=== PATIENT | male | born 1940 | race Caucasian/White ===

== ENCOUNTER 2019-10-11 22:40 | Emergency (ER) | payer MEDICARE, MEDICAID, SELFPAY ==
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
[2019-10-11 22:42] VITALS: BP 206/82; PULSE 70; RESP 19; TEMP 36.1; O2SAT 100
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
[2019-10-12] MEDS: TETANUS,DIPHTHERIA,AC PERTUSSIS ADULT (0.5 ML) BOOSTRIX IM (00:18)
[2019-10-12 00:23] VITALS: BP 162/57; PULSE 58; RESP 18; O2SAT 97
[2019-10-12 00:36] LABS: Glucose Point of Care 68 (65-105)
== END 2019-10-12 00:45 | disposition home or self-care (01) ==
PROVIDERS: Emergency Provider Emergency Medicine; PCP Family Medicine
DX: S51.812A Laceration without foreign body of left forearm, initial encounter (principal); Z23 Encounter for immunization; E11.22 Type 2 diabetes mellitus with diabetic chronic kidney disease; I12.9 Hypertensive chronic kidney disease with stage 1 through stage 4 chronic kidney disease, or unspecified chronic kidney disease; N18.9 Chronic kidney disease, unspecified; E78.5 Hyperlipidemia, unspecified; F03.90 Unspecified dementia, unspecified severity, without behavioral disturbance, psychotic disturbance, mood disturbance, and anxiety; K21.9 Gastro-esophageal reflux disease without esophagitis; I25.10 Atherosclerotic heart disease of native coronary artery without angina pectoris; M79.5 Residual foreign body in soft tissue; Z79.84 Long term (current) use of oral hypoglycemic drugs; Y04.2XXA Assault by strike against or bumped into by another person, initial encounter
CPT/HCPCS: 73090; 82948; 90471; 90715; 99283

== ENCOUNTER 2019-11-17 13:33 | Outpatient (CLI) | payer MEDICARE, MEDICAID, SELFPAY ==
--- NOTE | 2019-11-17 15:00 | NEURO_ITS ---
Patient Number: [id number] Impression: # Complains of numbness of upper extremities/hands; Status post cardiac surgery with left forearm surgery. # Left Carpal Tunnel Syndrome of moderate degree. # Right ulnar neuropathy across the elbow. # Abnormal needle/EMG exam. Nerve Conduction Studies Anti Sensory Summary Table Stim Site NR Peak (ms) P-T Amp (?V) Site1 Site2 Delta-P (ms) Dist (cm) Juan R (m/s) Left Median Anti Sensory (2-3nd Digit) Wrist 3.1 47.9 Wrist 2-3nd Digit 3.1 14.0 45 Wrist 3.6 19.8 Wrist 2-3nd Digit 3.1 14.0 45 Right Median Anti Sensory (2-3nd Digit) Wrist 3.5 14.9 Wrist 2-3nd Digit 3.5 14.0 40 Wrist 3.4 32.7 Wrist 2-3nd Digit 3.5 14.0 40 Left Radial Anti Sensory (Base 1st Digit) Wrist 2.0 10.7 Wrist Base 1st Digit 2.0 0.0 Right Radial Anti Sensory (Base 1st Digit) Wrist 2.5 7.5 Wrist Base 1st Digit 2.5 0.0 Left Ulnar Anti Sensory (5th Digit) Wrist 2.5 9.4 Wrist 5th Digit 2.5 14.0 56 Right Ulnar Anti Sensory (5th Digit) Wrist 4.1 18.4 Wrist 5th Digit 4.1 14.0 34 Motor Summary Table Stim Site NR Onset (ms) O-P Amp (mV) Site1 Site2 Delta-0 (ms) Dist (cm) Juan R (m/s) Left Median Motor (Abd Poll Brev) Wrist 5.5 3.8 Elbow Wrist 6.0 33.0 55 Elbow 11.5 0.8 Right Median Motor (Abd Poll Brev) Wrist 3.8 2.5 Elbow Wrist 5.0 28.0 56 Elbow 8.8 1.5 Left Ulnar Motor (Abd Dig Minimi) Wrist 5.2 2.9 A Elbow Wrist 6.3 33.0 52 A Elbow 11.5 1.4 Right Ulnar Motor (Abd Dig Minimi) Wrist 3.9 1.4 A Elbow Wrist 6.4 29.0 45 A Elbow 10.3 1.0 B Elbow Wrist 4.8 23.0 48 B Elbow 8.7 0.6 F Wave Studies NR F-Lat (ms) L-R F-Lat (ms) Left Median (Mrkrs) (Abd Poll Brev) 29.51 0.00 Right Median (Mrkrs) (Abd Poll Brev) 29.51 0.00 Left Ulnar (Mrkrs) (Abd Dig Min) 29.65 0.53 Right Ulnar (Mrkrs) (Abd Dig Min) 30.18 0.53 EMG Side Muscle Nerve Root Ins Act Fibs Amp Dur Recrt Comment Right 1stDorInt Ulnar C8-T1 Nml Nml Nml Nml Nml Right Ext Indicis Radial (Post Int) C7-8 Nml Nml Nml Nml Nml Right Ext Digitorum Radial (Post Int) C7-8 Nml Nml Nml Nml Nml Right BrachioRad Radial C5-6 Nml Nml Nml Nml Nml Right PronatorTeres Median C6-7 Nml Nml Nml Nml Nml Right Abd Poll Brev Median C8-T1 Nml Nml Nml Nml Nml Left 1stDorInt Ulnar C8-T1 Nml Nml Nml Nml Nml Left Ext Indicis Radial (Post Int) C7-8 Nml Nml Nml Nml Nml Left Ext Digitorum Radial (Post Int) C7-8 Nml Nml Nml Nml Nml Left BrachioRad Radial C5-6 Nml Nml Nml Nml Nml Left PronatorTeres Median C6-7 Nml Nml Nml >12ms Reduced Left Abd Poll Brev Median C8-T1 Nml Nml Nml >12ms Reduced Right ABD Dig Min Ulnar C8-T1 Nml Nml Nml >12ms Reduced Left ABD Dig Min Ulnar C8-T1 Nml Nml Nml >12ms Reduced MTDD
== END 2019-11-17 13:34 | disposition home or self-care (01) ==
PROVIDERS: PCP Family Medicine; Visit Provider Plastic Surgery
DX: G56.02 Carpal tunnel syndrome, left upper limb (principal); G56.21 Lesion of ulnar nerve, right upper limb
CPT/HCPCS: 95886; 95911

== ENCOUNTER 2019-11-22 20:35 | Emergency (ER) | payer MEDICARE, MEDICAID, SELFPAY ==
--- NOTE | ~2019-11-22 | XR_ITS ---
EXAMINATION: XR chest 1V portable DATE: 11/22/2019 22:26 INDICATION: Shortness of breath. TECHNIQUE: frontal view of the chest was obtained. COMPARISON: Chest radiograph dated 10/02/2018 FINDINGS: Hazy opacities at the bilateral lung bases most likely small bilateral pleural effusions and/or atele ctasis. No pulmonary edema or pneumothorax. The cardiomediastinal silhouette is normal. Median sterno nitesh wires and mediastinal surgical clips are seen, likely from prior coronary artery bypass grafting . IMPRESSION: 1. Hazy opacities at the lung bases which could represent small pleural effusions, atelectasis or les s likely pneumonia.. Reviewed, dictated and finalized at location A. IMPRESSION: 1. Hazy opacities at the lung bases which could represent small pleural effusio ns, atelectasis or less likely pneumonia..
[2019-11-22 20:43] VITALS: BP 179/65; PULSE 57; RESP 22; TEMP 36.7; O2SAT 100
--- NOTE | 2019-11-22 21:35 | ECG_ITS ---
Measurements Intervals [place] Rate: 58 P: 81 MS: 321 QRS: 12 QRSD: 111 T: 31 QT: 450 QTc: 444 Interpretive Statements SINUS BRADYCARDIA WITH FIRST DEGREE AV BLOCK INTRAVENTRICULAR CONDUCTION DELAY DELAYED PRECORDIAL R/S TRANSITION BASELINE ARTIFACT- I, II, III, AVR, AVL, AVF, V5-V6 ABNORMAL ECG Electronically Signed On 11-23-2019 7:05:51 CDT by Mark Moss D.O.
--- NOTE | 2019-11-22 21:37 | ED.SOB ---
HPI - SOB/Dyspnea General Chief Complaint: Shortness of Breath/Dyspnea Stated Complaint: short of breath Time Seen by Provider: 11/22/19 20:55 Source: patient Mode of arrival: ambulatory Limitations: no limitations History of Present Illness HPI Narrative: This patient is a 79 year old male with history COPD, DM, heart disease who presents for evaluation of abnormal blood sugar and shortness of breath. Patient states for the past month he has had intermittent sob. He states 1 month ago he starting having issues with his medications. He reports he has been out of his inhalers for a couple weeks. He has a chronic productive cough but he states it has not gotten worse. He denies chest pain or fever. He states that he is having intermittent sweating , which he thinks is due to his blood sugar dropping. He states he will be at rest and he feels like his blood sugar is low, so he will drink a soda. In the morning, he states his blood sugar is 70. He states he has no idea what his medications are for. He takes oral hypoglycemics. Related Data Home Medications Medication Instructions Recorded Confirmed alprazolam 0.5 mg PO PRN 10/11/19 amlodipine 5 mg PO DAILY 10/11/19 carvedilol 12.5 mg PO BID 10/11/19 cyclobenzaprine mg 10/11/19 donepezil 10 mg PO HS 10/11/19 ezetimibe mg 10/11/19 famotidine 20 mg PO BID 10/11/19 furosemide 20 mg PO DAILY 10/11/19 gabapentin 300 mg PO BID 10/11/19 glimepiride 4 mg PO DAILY 10/11/19 hydrocodone-acetaminophen 10/11/19 pioglitazone mg 10/11/19 rosuvastatin 20 mg PO DAILY 10/11/19 sitagliptin [Januvia] 100 mg PO DAILY 10/11/19 tramadol 50 mg PO 10/11/19 triamcinolone acetonide TOPICAL 10/11/19 umeclidinium-vilanterol [Anoro INHALATION 10/11/19 Ellipta] Spiriva with HandiHaler 18 mcg INHALATION DAILY 11/22/19 budesonide-formoterol [Symbicort] 2 puff INHALATION BID 11/22/19 11/22/19 glipizide 10 mg PO DAILY 11/22/19 Allergies Allergy/AdvReac Type Severity Reaction Status Date / Time morphine Allergy Intermediate Swelling Verified 10/11/19 22:47 Penicillins Allergy Mild Rash Verified 10/11/19 22:47 Review of Systems Review of Systems: All systems reviewed & are unremarkable except as noted in HPI and below Constitutional: Constitutional: Denies chills, Reports fatigue and Denies fever(s) ENT: Denies nasal congestion Cardiovascular: Cardiovascular: Denies chest pain Respiratory: Respiratory: Reports cough (chronic) and Reports dyspnea Gastrointestinal: Gastrointestinal: Denies abdominal pain, Reports diarrhea (intermittent), Denies nausea and Denies vomiting Neurologic: Reports dizziness Endocrine: Endocrine: Reports excessive sweating PMFSH Past Medical History Medical History Chronic kidney disease COPD (chronic obstructive pulmonary disease) Coronary artery disease Dementia Diabetes type 2, controlled GERD (gastroesophageal reflux disease) History of left heart catheterization Hyperlipidemia Hypertension Surgical History Surgical History (Updated 10/12/19 @ 00:15 by Davin Howell MD) H/O inguinal hernia repair Hx of CABG Social History Social History (Updated 10/12/19 @ 00:15 by Davin Howell MD) Substance use: never Gender identity (if verbalized by the patient): Male Exam Const: General: no acute distress and alert Orientation/consciousness: patient oriented x3 Eyes: EOM: EOMs intact bilaterally Neck: Neck: no lymphadenopathy Chest: Chest palpation & inspection: normal inspection of the chest Resp: Effort & Inspection: normal respiratory effort Auscultation: rhonchi and wheezes Cardio: Rate: regular rate Rhythm: regular rhythm Heart sounds: no murmurs GI: GI Palp: Yes Soft to palpation, No Tenderness to palpation present (GI), No Guarding due to palpation present (GI), No Rigid due to palpation and No Hernia present Neuro: General: patient or
[2019-11-22 21:47] LABS: Basophils Percent Auto 0.5 % (0.2-1.2); Eosinophils Absolute Auto 0.2 K/mm3 (0-0.3); Eosinophils Percent Auto 3.4 % (0-4.4); Hematocrit 38.2 % (42.0-52.0); Hemoglobin 12.7 g/dL (14.0-18.0); Immature Granulocyte Absolute 0.02 K/mm3 (0.00-0.031); Immature Granulocyte Percent A 0.3 % (0-0.5); Lymphocytes Absolute Auto 1.58 K/mm3 (0.9-3.2); Lymphocytes Percent Auto 27.2 % (18.3-44.2); Mean Corpuscular HGB Conc 33.2 g/dl (32-36); Mean Corpuscular Hemoglobin 31.3 pg (26-34); Mean Corpuscular Volume 94.1 fl (80-100); Mean Platelet Volume 10.6 fl (7.4-10.4); Monocytes Absolute Auto 0.5 K/mm3 (0.1-0.6); Monocytes Percent Auto 8.3 % (2.6-8.5); Neutrophils Absolute Auto 3.5 K/mm3 (1.3-6.7); Neutrophils Percent Auto 60.3 % (45.5-73.1); Platelet Count Result 173 k/mm3 (150-375); Red Blood Count 4.06 M/mm3 (4.6-6.20); Red Cell Distribution Width 12.7 % (11.5-14.5); White Blood Count 5.8 K/mm3 (4.5-10.0)
[2019-11-22 21:56] LABS: INR 1.1; Prothrombin Time 13.5 Seconds (11.1-14.7)
[2019-11-22 21:57] LABS: Partial Thromboplastin Time 31.8 SECONDS (22.3-36.8)
[2019-11-22 21:59] LABS: Alveolar/Arterial O2 Gradient 21.2 mmHg; Base Excess ABG 2.2 mEq/l (+/-2.0); Carboxyhemoglobin 1.2 % THb (0-2.0); Fractional Inspired Oxygen 21 %; HCO3 ABG 25.1 mEq/l (22.0-26.0); Methemoglobin ABG 0.3 %THb (0-1.5); Oxygen Saturation ABG 97.4 % (95.0-100.0); Oxyhemoglobin 95.4 % THb (90.0-100.0); PCO2 ABG 33.4 mmHg (35.0-45.0); PO2 ABG 88.5 mmHg (80.0-100.0); PO2 FiO2 Ratio Arterial Blood 4.21 %; Reduced Hemoglobin 3.1 %THb (0-5.0); Total Hemoglobin 12.6 g/dL (12.0-18.0); pH ABG 7.494 (7.350-7.450)
[2019-11-22 22:00] LABS: Device ROOM AIR; Site Drawn RIGHT BRACHIAL
[2019-11-22 22:00] LABS: Alanine Aminotransferase 13 U/L (4-50); Albumin Level 3.8 g/dL (3.5-5.1); Alkaline Phosphatase 89 U/L (38-126); Anion Gap 7 mmol/L (8-16); Aspartate Amino Transferase 21 U/L (17-59); Bilirubin,Total 0.5 mg/dL (0.2-1.3); Blood Urea Nitrogen 17 mg/dL (9-20); Calcium 9.2 mg/dL (8.4-10.2); Carbon Dioxide 25 mmol/L (22-30); Chloride 107 mmol/L (98-107); Estimated CRCL calculation 48 ml/min; Estimated Glomerular Filt Rate 54; Glucose 181 mg/dL (75-110); Potassium 3.8 mmol/L (3.4-5.0); Sodium 139 mmol/L (137-145)
[2019-11-22 22:09] LABS: NT Pro B Type Natriuretic Pept 1420 PG/ML (5-100)
[2019-11-22 22:22] LABS: Glucose Point of Care 140 (65-105)
[2019-11-22 22:30] VITALS: BP 183/77; PULSE 64; RESP 23; O2SAT 98
--- NOTE | 2019-11-22 22:47 | PC.NURSE ---
Asked Pt for urine sample, left urinal at bedside. Pt was instructed to use call light when he got his sample
[2019-11-22 23:05] LABS: Add Urine Microscopic? YES; Appearance Urine Clear (Clear); Bacteria Urine Trace /hpf; Bilirubin Urine Negative (Negative); Blood Urine Negative (Negative); Color Urine Yellow (Yellow); Glucose Urine UA Negative (Negative); Ketones Urine Negative (Negative); Leukocyte Esterase Ur Negative LEU/UL (Negative); Mucus Urine Few /lpf; Nitrate Urine Negative (Negative); Protein Urine 1+ mg/dL (Negative); RBC Urine 0-2 /hpf (0-2); Specific Grav Ur 1.021 (1.001-1.035); Squamous Epithelial Cell Urine Many /hpf (Few)
[2019-11-22 23:30] VITALS: BP 176/81; PULSE 79; RESP 20; O2SAT 99
[2019-11-23 00:35] VITALS: BP 181/75; PULSE 74; RESP 21; O2SAT 99
== END 2019-11-23 00:35 | disposition home or self-care (01) ==
PROVIDERS: Emergency Provider General Practice; PCP Family Medicine
DX: J44.1 Chronic obstructive pulmonary disease with (acute) exacerbation (principal); R00.1 Bradycardia, unspecified; I12.9 Hypertensive chronic kidney disease with stage 1 through stage 4 chronic kidney disease, or unspecified chronic kidney disease; E11.22 Type 2 diabetes mellitus with diabetic chronic kidney disease; N18.9 Chronic kidney disease, unspecified; Z79.84 Long term (current) use of oral hypoglycemic drugs; I25.10 Atherosclerotic heart disease of native coronary artery without angina pectoris; E78.5 Hyperlipidemia, unspecified
CPT/HCPCS: 36415; 36600; 71045; 80048; 80076; 81001; 82375; 82805; 83050; 83880; 85025; 85610; 85730; 93005; 99284

== ENCOUNTER 2021-06-11 20:38 | Emergency (ER) | payer MEDICARE, MEDICAID, SELFPAY ==
--- NOTE | ~2021-06-11 | CT_ITS ---
EXAMINATION: CT thoracic spine wo con DATE: 06/11/2021 21:48 INDICATION: Back pain TECHNIQUE: Computed tomography (CT) of the thoracic spine was performed without intravenous contrast. Automated exposure control and iterative reconstruction technique were employed. The dose-length pro duct was 1685.14 mGy-cm. COMPARISON: None FINDINGS: Proximally 15 degrees thoracic dextroscoliosis between T4 and T11. Sagittal alignment is normal. Vert ebral body heights are normal. No fracture. There are bridging osteophytes at multiple levels consist ent with diffuse idiopathic skeletal hyperostosis (DISH). Moderate to severe disc height loss with de generative endplate changes at C5-C6, C6-C7, T6-T7, T9-T10, T11-T12 and T12-L1. Less severe mild to m oderate disc height loss at the remaining thoracic levels. Posterior disc osteophyte complexes result ing in mild central canal stenosis and moderate bilateral neural foraminal stenosis at C5-C6 and C6-C 7. Additional posterior endplate osteophytes resulting in mild central canal stenosis at T11-T12 and minimal central canal stenosis at T10-T11. Multilevel moderate thoracic facet osteoarthritis. There i s moderate to severe neural foraminal stenosis on the right at T11-T12, moderate neural foraminal cally nosis on the right at T4-T5, on the left at T6-T7, bilaterally at T10-T11 and on the right at T11-T12 . Mild neural foraminal stenosis at multiple additional levels in the thoracic spine. Bronchial wall thickening along with small amount of mucus within the trachea. Visualized lungs are clear. Extensive atherosclerotic calcifications at the coronary arteries aorta and great vessels arising from the arc h. Aortic valve calcification. Calcified right hilar and mediastinal lymph nodes consistent with old granulomatous disease. Small sliding-type hiatal hernia. IMPRESSION: 1. No acute osseous abnormality. 2. Mild thoracic dextroscoliosis with moderate to severe spondylosis and DISH. Reviewed, dictated and finalized at location A. OMIMIST
[2021-06-11 20:45] VITALS: BP 149/70; PULSE 63; RESP 15; TEMP 36.3; O2SAT 100
[2021-06-11] MEDS: KETOROLAC 15 MG/ML VIAL (*BKC) IV PUSH ×2 (21:19→23:12)
--- NOTE | 2021-06-11 21:32 | ED.BACK ---
HPI - Back Pain/Injury General Chief Complaint: Back Pain/Injury Stated Complaint: low back pain x 3-4 days Time Seen by Provider: 06/11/21 20:58 Source: patient History of Present Illness HPI Narrative: 81-year-old male presents today with complaints of back pain that he has had for 3 days. Patient denies any trauma causing the back pain. Patient states he has had back issues in the past but cannot give me specific. He has never seen orthospine before. Patient states the pain started 3 days ago and has progressively gotten worse. Patient states he is not able to walk at this time due to the pain. Denies any weakness to lower extremities, denies urinary incontinence, denies bowel incontinence, or saddle paresthesia. Patient has been using his tramadol at home without relief noted. Related Data Home Medications Medication Instructions Recorded Confirmed alprazolam 0.5 mg PO PRN PRN 10/11/19 11/24/19 amlodipine 5 mg PO DAILY 10/11/19 11/24/19 carvedilol 12.5 mg PO BID 10/11/19 11/24/19 cyclobenzaprine 10 mg PO HS 10/11/19 11/24/19 donepezil 10 mg PO HS 10/11/19 11/24/19 ezetimibe 10 mg PO DAILY 10/11/19 11/24/19 famotidine 20 mg PO BID 10/11/19 11/24/19 furosemide 20 mg PO DAILY 10/11/19 11/24/19 gabapentin 300 mg PO BID 10/11/19 11/24/19 glimepiride 4 mg PO DAILY 10/11/19 11/24/19 hydrocodone-acetaminophen 1 tablet PO DAILY PRN 10/11/19 11/24/19 pioglitazone 30 mg PO DAILY 10/11/19 11/24/19 rosuvastatin 20 mg PO DAILY 10/11/19 11/24/19 sitagliptin [Januvia] 100 mg PO DAILY 10/11/19 11/24/19 tramadol 50 mg PO BID 10/11/19 11/24/19 umeclidinium-vilanterol [Anoro 2 ea INHALATION PRN PRN 10/11/19 11/24/19 Ellipta] Spiriva with HandiHaler 18 mcg INHALATION DAILY 08/18/20 08/20/20 glipizide 10 mg PO DAILY 11/22/19 11/24/19 Allergies Allergy/AdvReac Type Severity Reaction Status Date / Time morphine Allergy Intermediate Itching Verified 11/24/19 09:49 Penicillins Allergy Mild Unknown Verified 11/24/19 09:49 Review of Systems Review of Systems: CONSTITUTIONAL: Denies fever, chills, or sweats. EYES: Denies visual changes, redness, or discharge. ENT: Denies rhinorrhea, congestion, sore throat, or otalgia. CARDIOVASCULAR: Denies chest pain, palpitations, or edema. RESPIRATORY: Denies cough or dyspnea. GASTROINTESTINAL: Denies abdominal pain, nausea, vomiting, or diarrhea. GENITOURINARY: Denies dysuria or hematuria. SKIN: Denies rash or itching. MUSCULOSKELETAL: Back pain radiating down bilateral legs. Denies joint pain or myalgia. NEUROLOGIC: Denies headache, numbness, dizziness, or weakness. PSYCHIATRIC: Denies anxiety or depression. [facility]LY [facility] Past Medical History Medical History (Updated 06/12/21 @ 02:50 by Celeste Melton APRN) Chronic kidney disease COPD (chronic obstructive pulmonary disease) Coronary artery disease Dementia Diabetes type 2, controlled GERD (gastroesophageal reflux disease) History of left heart catheterization Hyperlipidemia Hypertension Surgical History Surgical History (Updated 10/12/19 @ 00:15 by Davin Howell MD) H/O inguinal hernia repair Hx of CABG Social History Social History (Updated 10/12/19 @ 00:15 by Davin Howell MD) Smoking packs per day: 2 Smoking cigarettes per day: 40.0 Years smoked: 42 Smoking pack-years: 84.00 Smoking status: Current every day smoker Tobacco type: cigarettes Additional smoking assessment comments: [facility] NOW SMOKES 2-3 CIGARETTES ON THURSDAY FOR 2 YEARS Alcohol intake: former Alcohol use details: DRANK EVERYDAY QUIT- 1971 Substance use: never Gender identity (if verbalized by the patient): Male Spiritual care concerns: No Exam Narrative: GENERAL: Well-appearing, well-nourished, and in no acute distress. HEAD: Normocephalic, atraumatic. EYES: PERRLA and EOMI. ENT: Nares clear, no rhinorrhea or epistaxis. Mucous membranes moist. Oropharynx without tonsillar hypertrophy exudate or other lesions. Bilateral TMs pea
[2021-06-11 22:08] LABS: Add Urine Microscopic? YES; Appearance Urine Cloudy (Clear); Bacteria Urine Trace /hpf; Bilirubin Urine Negative (Negative); Blood Urine 1+ (Negative); Color Urine Amber (Yellow); Glucose Urine UA Negative (Negative); Ketones Urine Negative (Negative); Leukocyte Esterase Ur 1+ LEU/UL (Negative); Mucus Urine Few /lpf; Nitrate Urine Negative (Negative); Protein Urine 2+ mg/dL (Negative); Specific Grav Ur 1.023 (1.001-1.035); Squamous Epithelial Cell Urine Few /hpf (Few); WBC Urine 31-50 /hpf
[2021-06-11] MEDS: HYDROcodone/acetaminophen (*CRX) 5-325 MG TABLET 1 TAB PO (23:12)
[2021-06-11 23:47] VITALS: BP 142/81; PULSE 68; RESP 18; O2SAT 97
== END 2021-06-11 23:47 | disposition home or self-care (01) ==
PROVIDERS: Emergency Provider Nurse Practitioner Family; PCP Family Medicine
DX: M54.50 Low back pain, unspecified (principal); E11.22 Type 2 diabetes mellitus with diabetic chronic kidney disease; I12.9 Hypertensive chronic kidney disease with stage 1 through stage 4 chronic kidney disease, or unspecified chronic kidney disease; N18.9 Chronic kidney disease, unspecified; Z79.84 Long term (current) use of oral hypoglycemic drugs; E78.5 Hyperlipidemia, unspecified; J44.9 Chronic obstructive pulmonary disease, unspecified; I25.10 Atherosclerotic heart disease of native coronary artery without angina pectoris; F03.90 Unspecified dementia, unspecified severity, without behavioral disturbance, psychotic disturbance, mood disturbance, and anxiety; Z95.1 Presence of aortocoronary bypass graft; F17.210 Nicotine dependence, cigarettes, uncomplicated; M47.814 Spondylosis without myelopathy or radiculopathy, thoracic region; M48.14 Ankylosing hyperostosis [Forestier], thoracic region
CPT/HCPCS: 72128; 81001; 87086; 87088; 96374; 96375; 96376; 99284; A9270; J1100; J1885

== ENCOUNTER 2021-07-28 15:13 | Inpatient (IN) | payer MEDICARE, MEDICAID, SELFPAY ==
[2021-07-28] VITALS (15 sets, daily range): BP systolic 108–159; BP diastolic 50–72; PULSE 58–72; RESP 14–21; TEMP 36.4–36.7; O2SAT 93–100
--- NOTE | ~2021-07-28 | US_ITS ---
EXAMINATION: US renal BI DATE: 07/31/2021 13:47 INDICATION: Acute renal insufficiency TECHNIQUE: Multiple ultrasound grayscale images of the kidneys were obtained. COMPARISON: 07/17/2018 FINDINGS: The right kidney measures 10.3 x 5.4 x 5.5 cm. With normal cortical echogenicity The left kidney olga ures 9.8 x 2.9 x 4.8 cm. Left renal cortical thinning and with diffuse increased echogenicity. 1.3 cm anechoic left renal cyst. There is no hydronephrosis in either kidney. No stones identified. The bl adder is normal. IMPRESSION: 1. Bilateral moderate left renal atrophy of indeterminate etiology which is new since the prior CT. Reviewed, dictated and finalized at location B. IMPRESSION: 1. Bilateral moderate left renal atrophy of indeterminate etiology which is ne w since the prior CT.
--- NOTE | ~2021-07-28 | XR_ITS ---
EXAMINATION: XR chest 1V portable INDICATION: Shortness of breath TECHNIQUE: Portable AP chest at 1546 hours COMPARISON: 11/22/2019 FINDINGS: The lungs are free of acute opacities. There is no pleural effusion or pneumothorax. The he art size is upper limits of normal for technique. Median sternotomy wires and mediastinal surgical cl ips are seen, likely from prior coronary artery bypass grafting. IMPRESSION: 1. No acute cardiopulmonary abnormality. Reviewed, dictated and finalized at location F.
--- NOTE | 2021-07-28 15:31 | ECG_ITS ---
Measurements Intervals [place] Rate: 57 P: -48 CT: 188 QRS: -25 QRSD: 108 T: 61 QT: 461 QTc: 453 Interpretive Statements SINUS BRADYCARDIA BORDERLINE LEFT AXIS DEVIATION [QRS AXIS < -20] MODERATE ST DEPRESSION [0.05+ mV ST DEPRESSION] COMPARED TO ECG 11/22/2019 20:46:09 ST (T WAVE) DEVIATION NOW PRESENT Electronically Signed On 07-29-2021 16:11:11 CDT by Lenny Grant M.D.
--- NOTE | 2021-07-28 15:38 | ED.SOB ---
HPI - SOB/Dyspnea General Chief Complaint: Shortness of Breath/Dyspnea Stated Complaint: SOB Time Seen by Provider: 07/28/21 15:33 Source: patient Mode of arrival: ambulatory Limitations: no limitations History of Present Illness HPI Narrative: Patient is a 81-year-old male complaining of shortness of breath, worse with exertion, accompanied by cough, productive, yellowish sputum that started 2 days ago. Patient states that he has a history of COPD and still smokes approximately 4 to 5 cigarettes/day. Patient is not on home oxygen. Patient denies any chest pain, abdominal pain, nausea, vomiting, diaphoresis, fever or chills. Related Data Home Medications Medication Instructions Recorded Confirmed alprazolam 0.5 mg PO PRN PRN 10/11/19 11/24/19 amlodipine 5 mg PO DAILY 10/11/19 11/24/19 carvedilol 12.5 mg PO BID 10/11/19 11/24/19 cyclobenzaprine 10 mg PO HS 10/11/19 11/24/19 donepezil 10 mg PO HS 10/11/19 11/24/19 ezetimibe 10 mg PO DAILY 10/11/19 11/24/19 famotidine 20 mg PO BID 10/11/19 11/24/19 furosemide 20 mg PO DAILY 10/11/19 11/24/19 gabapentin 300 mg PO BID 10/11/19 11/24/19 glimepiride 4 mg PO DAILY 10/11/19 11/24/19 hydrocodone-acetaminophen 1 tablet PO DAILY PRN 10/11/19 11/24/19 pioglitazone 30 mg PO DAILY 10/11/19 11/24/19 rosuvastatin 20 mg PO DAILY 10/11/19 11/24/19 sitagliptin [Januvia] 100 mg PO DAILY 10/11/19 11/24/19 tramadol 50 mg PO BID 10/11/19 11/24/19 umeclidinium-vilanterol [Anoro 2 ea INHALATION PRN PRN 10/11/19 11/24/19 Ellipta] Spiriva with HandiHaler 18 mcg INHALATION DAILY 11/22/19 11/24/19 glipizide 10 mg PO DAILY 11/22/19 11/24/19 Allergies Allergy/AdvReac Type Severity Reaction Status Date / Time morphine Allergy Intermediate Itching Verified 07/28/21 15:42 Penicillins Allergy Mild Unknown Verified 07/28/21 15:42 Review of Systems Review of Systems: All systems reviewed & are unremarkable except as noted in HPI and below Constitutional: Constitutional: Denies body ache(s), Denies chills, Denies excessive sweating, Denies fatigue, Denies fever(s), Denies headache(s), Denies lethargy, Denies malaise, Denies weakness and Denies weight loss Eyes: Eyes: Denies blurry vision, Denies change in vision and Denies loss of vision ENT: Denies dizziness, Denies ear discharge, Denies headache(s), Denies lip swelling, Denies epistaxis, Denies nasal congestion, Denies neck pain, Denies throat swelling and Denies tongue swelling Cardiovascular: Cardiovascular: Denies chest pain, Denies chest pain at rest, Denies chest pain with activity, Denies diaphoresis, Denies rapid heart rate, Denies edema, Denies irregular heart rhythm, Denies lightheadedness and Denies palpitations Respiratory: Respiratory: Denies chest congestion and Denies hemoptysis Gastrointestinal: Gastrointestinal: Denies abdominal pain, Denies melena, Denies hematochezia, Denies diarrhea, Denies nausea, Denies vomiting and Denies hematemesis Musculoskeletal: Musculoskeletal: Denies abnormal gait, Denies deformity, Denies joint swelling, Denies limited range of motion, Denies neck pain and Denies numbness Neurologic: Denies Abnormal speech present, Denies abnormal gait, Denies confusion, Denies dizziness, Denies headache(s), Denies focal weakness, Denies loss of vision, Denies numbness, Denies Other visual disturbances, Denies Sensory deficit (Neuro) and Denies weakness Psychiatric: Psychiatric: Denies confusion, Denies depression, Denies auditory hallucinations, Denies homicidal ideation and Denies suicidal ideation Endocrine: Endocrine: Denies cold intolerance, Denies excessive sweating, Denies fatigue, Denies heat intolerance and Denies palpitations Hematologic/Lymphatic: Hematologic/Lymphatic: Denies easy bleeding and Denies easy bruising Allergic/Immunologic: Allergic/Immunologic: Denies lip swelling, Denies throat swelling and Denies tongue swelling PMFSH Past Medical History Medical History (Updated 07/28/21 @ 17:30 by Chemo Wright
[2021-07-28] MEDS: methylPREDNISolone SOD SUCC 125 MG VIAL IV PUSH (15:53)
[2021-07-28 16:04] LABS: Basophils Percent Auto 0.1 % (0.2-1.2); Eosinophils Percent Auto 0.1 % (0-4.4); Hematocrit 33.8 % (42.0-52.0); Hemoglobin 10.4 g/dL (14.0-18.0); Immature Granulocyte Absolute 0.05 K/mm3 (0.00-0.031); Immature Granulocyte Percent A 0.6 % (0-0.5); Lymphocytes Percent Auto 12.9 % (18.3-44.2); Mean Corpuscular HGB Conc 30.8 g/dl (32-36); Mean Corpuscular Hemoglobin 29.8 pg (26-34); Mean Corpuscular Volume 96.8 fl (80-100); Mean Platelet Volume 9.7 fl (7.4-10.4); Monocytes Absolute Auto 0.9 K/mm3 (0.1-0.6); Monocytes Percent Auto 11.6 % (2.6-8.5); Neutrophils Absolute Auto 5.8 K/mm3 (1.3-6.7); Neutrophils Percent Auto 74.7 % (45.5-73.1); Platelet Count Result 134 k/mm3 (150-375); Red Blood Count 3.49 M/mm3 (4.6-6.20); Red Cell Distribution Width 14.4 % (11.5-14.5); White Blood Count 7.7 K/mm3 (4.5-10.0)
[2021-07-28 16:15] LABS: Alanine Aminotransferase 19 U/L (4-50); Albumin Level 3.3 g/dL (3.5-5.1); Alkaline Phosphatase 90 U/L (38-126); Anion Gap 6 mmol/L (8-16); Aspartate Amino Transferase 21 U/L (17-59); Bilirubin,Total 0.9 mg/dL (0.2-1.3); Blood Urea Nitrogen 17 mg/dL (9-20); Calcium 8.4 mg/dL (8.4-10.2); Carbon Dioxide 27 mmol/L (22-30); Chloride 102 mmol/L (98-107); Estimated CRCL calculation 28 ml/min; Estimated Glomerular Filt Rate 31; Glucose 164 mg/dL (65-110); Potassium 3.7 mmol/L (3.4-5.0); Sodium 135 mmol/L (137-145)
[2021-07-28 16:24] LABS: Alveolar/Arterial O2 Gradient 34.2 mmHg; Base Excess ABG 1.9 mEq/l (+/-2.0); Carboxyhemoglobin 0.3 % THb (0-2.0); Fractional Inspired Oxygen 21 %; HCO3 ABG 24.1 mEq/l (22.0-26.0); Methemoglobin ABG 0.1 %THb (0-1.5); Oxyhemoglobin 96.2 % THb (90.0-100.0); PCO2 ABG 29.8 mmHg (35.0-45.0); PO2 ABG 79.8 mmHg (80.0-100.0); Reduced Hemoglobin 3.4 %THb (0-5.0)
[2021-07-28 16:25] LABS: INR 1.1; Prothrombin Time 13.8 Seconds (11.1-14.7)
[2021-07-28 16:26] LABS: Partial Thromboplastin Time 32.9 SECONDS (22.3-36.8)
[2021-07-28 16:27] LABS: Device ROOM AIR; Site Drawn RIGHT BRACHIAL; pH ABG 7.525 (7.350-7.450)
[2021-07-28] MEDS: ALBUTEROL SULFATE NEB 2.5 MG/0.5 ML INH 5 MG INHALATION ×2 (16:30→22:21)
[2021-07-28] MEDS: IPRATROPIUM BR 0.02% INH SOLN 0.5 MG/2.5 ML VIAL INHALATION ×2 (16:30→22:21)
[2021-07-28 16:44] LABS: NT Pro B Type Natriuretic Pept 5280 pg/mL (5-100); Troponin I 0.044 ng/mL (0.000-0.034)
[2021-07-28] MEDS: ASPIRIN 81 MG CHEWABLE TABLET 324 MG PO (17:55)
--- NOTE | 2021-07-28 19:27 | PM.IMHP ---
H&P: HPI History of Present Illness Date/Time: Patient was placed observation status for expected length of stay less than 23 hours for management, will plan to re-evaluate tomorrow for improvement. 07/28/21 19:27 Chief Complaint: Mr. Fuentes is a 81-year-old gentleman who presented emergency room with multiple medical complaints. Patient states that he has had weakness to bilateral lower extremities that has been getting worse over the last few days. Patient was recently seen in the emergency room for complaints of low back pain and pain in bilateral lower extremities with weakness. Patient states he continues to have this pain and he is having trouble walking at times. Patient states that he did fall yesterday out of bed and has an abrasion to his right forehead. Patient denies any chest pain or abnormal shortness of breath. Patient states he has a history of COPD and he feels that his shortness of breath is at baseline. Patient also has a known history of chronic kidney disease and sees Dr. Gregg on a regular basis. Patient denies wearing any oxygen at home and states he has been taking all medications without any difficulty. Patient denies any dysuria, hematuria, frequency, or urgency. Patient states that he is voiding normal amounts without any difficulty. Patient states that he has significantly cut back on cigarette smoking down to 4 cigarettes a day. Patient states that most he was smoking 3 packs cigarettes a day. Patient states he has a known history of COPD, chronic kidney disease, diabetes mellitus, dyslipidemia, and hypertension. Review of Systems Review of Systems: A 12 point review of systems was completed patient all pertinent positive and negative per HPI the remainder are unremarkable. [facility] Past Medical History Medical History (Updated 07/28/21 @ 19:35 by Nicole De La Fuente APRN) Chronic kidney disease COPD (chronic obstructive pulmonary disease) Coronary artery disease Dementia Diabetes type 2, controlled GERD (gastroesophageal reflux disease) History of left heart catheterization Hyperlipidemia Hypertension Surgical History Surgical History H/O inguinal hernia repair Hx of CABG Social History Social History Smoking packs per day: 2 Smoking cigarettes per day: 40.0 Years smoked: 42 Smoking pack-years: 84.00 Smoking status: Current every day smoker Tobacco type: cigarettes Additional smoking assessment comments: STATES NOW SMOKES 2-3 CIGARETTES ON THURSDAY FOR 2 YEARS Alcohol intake: former Alcohol use details: DRANK EVERYDAY QUIT- 1971 Substance use: never Gender identity (if verbalized by the patient): Male Spiritual care concerns: No Meds Home Medications and Allergies Home Medications Medication Instructions Recorded Confirmed Type alprazolam 0.5 mg PO PRN PRN 10/11/19 11/24/19 History amlodipine 5 mg PO DAILY 10/11/19 11/24/19 History carvedilol 12.5 mg PO BID 10/11/19 11/24/19 History cyclobenzaprine 10 mg PO HS 10/11/19 11/24/19 History donepezil 10 mg PO HS 10/11/19 11/24/19 History ezetimibe 10 mg PO DAILY 10/11/19 11/24/19 History famotidine 20 mg PO BID 10/11/19 11/24/19 History furosemide 20 mg PO DAILY 10/11/19 11/24/19 History gabapentin 300 mg PO BID 10/11/19 11/24/19 History glimepiride 4 mg PO DAILY 10/11/19 11/24/19 History hydrocodone-acetaminophen 1 tablet PO DAILY PRN 10/11/19 11/24/19 History pioglitazone 30 mg PO DAILY 10/11/19 11/24/19 History rosuvastatin 20 mg PO DAILY 10/11/19 11/24/19 History sitagliptin [Januvia] 100 mg PO DAILY 10/11/19 11/24/19 History tramadol 50 mg PO BID 10/11/19 11/24/19 History umeclidinium-vilanterol [Anoro 2 ea INHALATION PRN PRN 10/11/19 11/24/19 History Ellipta] Spiriva with HandiHaler 18 mcg INHALATION DAILY 11/22/19 11/24/19 History glipizide 10 mg PO DAILY 11/22/19 11/24/19 History albuterol al
--- NOTE | 2021-07-28 19:48 | ADMGEN ---
This patient, Miky Fuentes, was admitted to IMU Room 211-01. Patient/family oriented to hospital policies and general routines including ID bracelet, bed and alarms, visiting hours, pain management, procedures, bathroom and other care routines, personal items, smoking policy, room service/diet, and visiting hours. Information on how to activate the Rapid Response Team has been discussed. Patient/Family are encouraged to report perceived risks to care and to ask questions if they do not understand what they are told or what they should do.
[2021-07-28 20:38] LABS: Glucose Point of Care 323 mg/dl (65-105)
[2021-07-28 21:11] LABS: Troponin I 0.039 ng/mL (0.000-0.034)
[2021-07-28] MEDS: HEPARIN SODIUM 5,000 UNITS/ML VIAL 5000 UNITS SUB-Q (21:45)
[2021-07-28] MEDS: methylPREDNISolone SOD SUCC 125 MG VIAL 60 MG IV PUSH (21:45)
[2021-07-28] MEDS: carvediloL 12.5 MG TABLET PO (23:10)
[2021-07-28] MEDS: ROSUVASTATIN 10 MG TABLET 20 MG PO (23:11)
[2021-07-28] MEDS: CYCLOBENZAPRINE HCL 10 MG TABLET PO (23:11)
[2021-07-28] MEDS: ASPIRIN 81 MG CHEWABLE TABLET PO (23:12)
[2021-07-28] MEDS: FAMOTIDINE 20 MG TABLET PO (23:13)
[2021-07-28] MEDS: INSULIN ASPART (*BKC) 100 UNITS/ML 7 UNITS SUB-Q (23:17)
[2021-07-28 23:37] LABS: Glucose Point of Care 367 mg/dl (65-105)
[2021-07-28 23:58] LABS: Troponin I 0.033 ng/mL (0.000-0.034)
[2021-07-29] VITALS (24 sets, daily range): BP systolic 118–148; BP diastolic 49–72; PULSE 52–136; RESP 18–24; TEMP 35.9–36.6; O2SAT 93–100
[2021-07-29] MEDS: ALBUTEROL SULFATE NEB 2.5 MG/0.5 ML INH 5 MG INHALATION ×4 (02:45→20:42)
[2021-07-29] MEDS: IPRATROPIUM BR 0.02% INH SOLN 0.5 MG/2.5 ML VIAL INHALATION ×4 (02:45→20:41)
[2021-07-29 05:53] LABS: Hematocrit 32.1 % (42.0-52.0); Hemoglobin 9.8 g/dL (14.0-18.0); Immature Granulocyte Absolute 0.01 K/mm3 (0.00-0.031); Immature Granulocyte Percent A 0.2 % (0-0.5); Lymphocytes Absolute Auto 0.42 K/mm3 (0.9-3.2); Lymphocytes Percent Auto 8.9 % (18.3-44.2); Mean Corpuscular HGB Conc 30.5 g/dl (32-36); Mean Corpuscular Volume 98.2 fl (80-100); Mean Platelet Volume 10.9 fl (7.4-10.4); Monocytes Absolute Auto 0.1 K/mm3 (0.1-0.6); Monocytes Percent Auto 2.5 % (2.6-8.5); Neutrophils Absolute Auto 4.2 K/mm3 (1.3-6.7); Neutrophils Percent Auto 88.4 % (45.5-73.1); Platelet Count Result 124 k/mm3 (150-375); Red Blood Count 3.27 M/mm3 (4.6-6.20); Red Cell Distribution Width 13.8 % (11.5-14.5); White Blood Count 4.7 K/mm3 (4.5-10.0)
[2021-07-29 06:00] LABS: Anion Gap 6 mmol/L (8-16); Blood Urea Nitrogen 23 mg/dL (9-20); Calcium 8.1 mg/dL (8.4-10.2); Carbon Dioxide 24 mmol/L (22-30); Chloride 102 mmol/L (98-107); Estimated CRCL calculation 31 ml/min; Estimated Glomerular Filt Rate 34; Glucose 297 mg/dL (65-110); Magnesium 2.2 mg/dL (1.6-2.3); Potassium 3.8 mmol/L (3.4-5.0); Sodium 132 mmol/L (137-145)
[2021-07-29] MEDS: methylPREDNISolone SOD SUCC 125 MG VIAL 60 MG IV PUSH ×2 (06:11→12:51)
[2021-07-29 08:45] LABS: Glucose Point of Care 255 mg/dl (65-105)
[2021-07-29] MEDS: INSULIN ASPART (*BKC) 100 UNITS/ML SUB-Q ×3 (09:22→17:15)
[2021-07-29] MEDS: carvediloL 12.5 MG TABLET PO ×2 (09:23→22:05)
[2021-07-29] MEDS: FUROSEMIDE 20 MG TABLET PO (09:23)
[2021-07-29] MEDS: EZETIMIBE 5 MG TABLET PO (09:23)
[2021-07-29] MEDS: HEPARIN SODIUM 5,000 UNITS/ML VIAL 5000 UNITS SUB-Q ×2 (09:23→22:14)
[2021-07-29] MEDS: DONEPEZIL HCL 10 MG TABLET PO (09:23)
[2021-07-29] MEDS: GLIMEPIRIDE 2 MG TABLET PO (09:23)
[2021-07-29] MEDS: GABAPENTIN 300 MG CAPSULE PO ×2 (09:23→17:15)
[2021-07-29] MEDS: PIOGLITAZONE HCL 30 MG TABLET PO (09:23)
[2021-07-29] MEDS: amLODIPine BESYLATE 5 MG TABLET PO (09:24)
[2021-07-29] MEDS: ALPRAZolam (*CRX) 0.5 MG TABLET PO (09:24)
[2021-07-29] MEDS: FAMOTIDINE 20 MG TABLET PO ×2 (09:24→22:14)
[2021-07-29] MEDS: FLUTICASONE/UMECLIDIN/VILANTER 100-62.5-25 MCG ELLIPTA 1 PUFF INHALATION (09:25)
--- NOTE | 2021-07-29 09:31 | PCOTNOTE ---
Attempted to see pt. for occupational therapy evaluation. Pt. getting ECG testing in room.
--- NOTE | 2021-07-29 09:33 | PCOTNOTE ---
Attempted to see pt. for occupational therapy evaluation. Pt. getting respiratory treatment in room at this time.
[2021-07-29 12:21] LABS: Glucose Point of Care 285 mg/dl (65-105)
--- NOTE | 2021-07-29 13:53 | PM.IMPN ---
Progress Note: A&P Assessment and Plan (1) Acute exacerbation of chronic obstructive pulmonary disease: Code(s): J44.1 - Chronic obstructive pulmonary disease with (acute) exacerbation Status: Acute Assessment and Plan: Presented with increased shortness of breath with audible wheezing Continue IV Solu-Medrol, wean to 40 mg IV BID Continue scheduled DuoNebs Home Kathitri is nonformulary. Transitioned to Trelegy during admission. No change in sputum and no indication for antibiotics (2) Chronic kidney disease: Code(s): N18.9 - Chronic kidney disease, unspecified Status: Acute Assessment and Plan: Patient states that he sees Nephrology on regular basis. He is unsure of his baseline Records have been requested from Nephrology Creatinine 1.9 today. Continue to monitor BMP. Avoid nephrotoxins. (3) Weakness: Code(s): R53.1 - Weakness Status: Acute Assessment and Plan: Patient is complaining of weakness of bilateral lower extremities Likely due to physical deconditioning. Recently evaluated June 2021 for same complaint, at that time he had CT of the thoracic spine which showed no acute abnormalities Appreciate PT/OT evaluation Check TSH, B12, folate (4) Elevated troponin: Code(s): R77.8 - Other specified abnormalities of plasma proteins Status: Acute Assessment and Plan: Minimally elevated with peak at 0.044 Patient is completely asymptomatic. EKG reviewed without any ST abnormalities noted May be related to his chronic kidney disease No further intervention required at this time (5) Diabetes type 2, controlled: Code(s): E11.9 - Type 2 diabetes mellitus without complications Status: Acute Assessment and Plan: Most recent A1c unknown. Blood sugars have been elevated above target well on IV steroids Continue Accu-Cheks, high dose sliding scale insulin, hypoglycemic protocol Continue home medications including pioglitazone, sitagliptin, glimepiride Will add long-acting insulin while on IV steroids Additional Plan Patient is hemodynamically stable and will be downgraded to medical/surgical floor Subjective Date/time seen: 07/29/21 13:53 Interval history: Date of service: 07/29/2021 Miky Fuentes is a 81-year-old male with a history of COPD, CKD, CAD, type 2 diabetes mellitus, hypertension, hyperlipidemia, and dementia who is seen in follow-up for COPD exacerbation. He states that he is always short of breath but seems somewhat improved overall. He endorses a cough that is nonproductive. He also endorses a fall 2 nights ago. He states he was getting up to go to the bathroom when he felt dizzy and ?down I went.? He did hit his head but did not lose consciousness. He was feeling very weak and he stated he could not walk. He crawled to his bed and then was able to pull himself up. He states that he is chronically dizzy and this is unchanged. Denies any change in his symptoms with positional changes. Denies any chest pain now and prior to presentation. He denies nausea, vomiting, fever, chills. Denies wheezing. Review of Systems Review of Systems: All systems reviewed & are unremarkable except as noted in HPI and below Exam Narrative: General: Well-nourished, chronically ill-appearing 81 year-old male, sitting up in bed, comfortable, NARD Neuro: awake, alert and oriented x4, speech clear, no focal neuro deficits noted HEENMT: normocephalic, atraumatic, EOMI, sclerae anicteric, moist oral mucosa Respiratory: Diminished breath sounds bilaterally with faint expiratory wheezes, nonlabored breathing Cardio: regular rate, regular rhythm with S1-S2 Abdomen: nondistended, normoactive bowel sounds, soft, nontender to palpation Extremities: no edema, erythema, or tenderness to palpation, DP pulses 2+ bilaterally Skin: Small abrasion on right anterior forehead, ecchymosis on right wrist/arm, warm and dry
[2021-07-29 17:08] LABS: Glucose Point of Care 329 mg/dl (65-105)
--- NOTE | 2021-07-29 17:35 | PC.NURSE ---
Patient transferred by bed to room from ICU at 1735. Patient denies any pain or discomfort when asked.
[2021-07-29] MEDS: CYCLOBENZAPRINE HCL 10 MG TABLET PO (22:05)
[2021-07-29] MEDS: ROSUVASTATIN 10 MG TABLET 20 MG PO (22:06)
[2021-07-29] MEDS: methylPREDNISolone SOD SUCC 40 MG VIAL IV PUSH (22:06)
[2021-07-29] MEDS: ASPIRIN 81 MG CHEWABLE TABLET PO (22:08)
[2021-07-29] MEDS: INSULIN GLARGINE (*BKC) 100 UNITS/ML 14 UNITS SUB-Q (22:14)
[2021-07-29 22:24] LABS: Glucose Point of Care 153 mg/dl (65-105)
[2021-07-30] VITALS (14 sets, daily range): BP systolic 116–123; BP diastolic 45–71; PULSE 55–63; RESP 14–20; TEMP 36.2–36.7; O2SAT 95–100
[2021-07-30] MEDS: IPRATROPIUM BR 0.02% INH SOLN 0.5 MG/2.5 ML VIAL INHALATION ×4 (02:14→20:13)
[2021-07-30] MEDS: ALBUTEROL SULFATE NEB 2.5 MG/0.5 ML INH 5 MG INHALATION ×4 (02:14→20:13)
[2021-07-30 06:01] LABS: Hematocrit 30.5 % (42.0-52.0); Hemoglobin 9.6 g/dL (14.0-18.0); Immature Platelet Fraction Pct 7.7 % (0.9-11.2); Mean Corpuscular HGB Conc 31.5 g/dl (32-36); Mean Corpuscular Hemoglobin 30.1 pg (26-34); Mean Corpuscular Volume 95.6 fl (80-100); Mean Platelet Volume 11.3 fl (7.4-10.4); Platelet Count Result 142 k/mm3 (150-375); Red Blood Count 3.19 M/mm3 (4.6-6.20); Red Cell Distribution Width 13.9 % (11.5-14.5); White Blood Count 8.4 K/mm3 (4.5-10.0)
[2021-07-30 06:11] LABS: Anion Gap 7 mmol/L (8-16); Blood Urea Nitrogen 31 mg/dL (9-20); Calcium 8.4 mg/dL (8.4-10.2); Carbon Dioxide 24 mmol/L (22-30); Chloride 101 mmol/L (98-107); Estimated CRCL calculation 29 ml/min; Estimated Glomerular Filt Rate 32; Glucose 236 mg/dL (65-110); Potassium 4.4 mmol/L (3.4-5.0); Sodium 132 mmol/L (137-145)
[2021-07-30 06:32] LABS: Hemoglobin A1C 6.3 % (<5.7)
[2021-07-30 06:53] LABS: Thyroid Stimulating Hormone Reflex 0.356 uIU/mL (0.465-4.68)
[2021-07-30 07:14] LABS: Folic Acid 3.8 ng/mL (2.76->20)
[2021-07-30 07:39] LABS: Free T4 Free Thyroxine Reflex 1.71 ng/dL (0.78-2.19)
[2021-07-30 07:58] LABS: Glucose Point of Care 235 mg/dl (65-105)
[2021-07-30] MEDS: FLUTICASONE/UMECLIDIN/VILANTER 100-62.5-25 MCG ELLIPTA 1 PUFF INHALATION (08:21)
[2021-07-30 08:23] LABS: Total Triiodothyronine (T3) 0.65 NG/ML (0.97-1.69)
[2021-07-30] MEDS: INSULIN ASPART (*BKC) 100 UNITS/ML SUB-Q ×4 (08:25→14:56)
[2021-07-30] MEDS: PIOGLITAZONE HCL 30 MG TABLET PO (08:30)
[2021-07-30] MEDS: carvediloL 12.5 MG TABLET PO ×2 (08:30→20:31)
[2021-07-30] MEDS: FUROSEMIDE 20 MG TABLET PO (08:31)
[2021-07-30] MEDS: EZETIMIBE 5 MG TABLET PO (08:31)
[2021-07-30] MEDS: GLIMEPIRIDE 2 MG TABLET PO (08:31)
[2021-07-30] MEDS: GABAPENTIN 300 MG CAPSULE PO ×2 (08:31→17:53)
[2021-07-30] MEDS: amLODIPine BESYLATE 5 MG TABLET PO (08:31)
[2021-07-30] MEDS: methylPREDNISolone SOD SUCC 40 MG VIAL IV PUSH ×2 (08:32→20:55)
[2021-07-30] MEDS: FAMOTIDINE 20 MG TABLET PO ×2 (08:32→20:33)
[2021-07-30] MEDS: HEPARIN SODIUM 5,000 UNITS/ML VIAL 5000 UNITS SUB-Q ×2 (08:32→20:33)
[2021-07-30] MEDS: DONEPEZIL HCL 10 MG TABLET PO (08:32)
[2021-07-30] MEDS: ALPRAZolam (*CRX) 0.5 MG TABLET PO (08:34)
[2021-07-30 12:09] LABS: Glucose Point of Care 430 mg/dl (65-105)
--- NOTE | 2021-07-30 14:22 | PC.NURSE ---
On 07/30/21, the student, Melva Lim, provided care and completed [facility] documentation on this patient. I have reviewed the student's documentation and agree with the findings.
[2021-07-30 14:37] LABS: Glucose Point of Care 339 mg/dl (65-105)
--- NOTE | 2021-07-30 14:40 | P.PNIM_ITS ---
Progress Note: A&P Assessment and Plan (1) Acute exacerbation of chronic obstructive pulmonary disease: Code(s): J44.1 - Chronic obstructive pulmonary disease with (acute) exacerbation Status: Acute Assessment and Plan: Presented with increased shortness of breath with audible wheezing * Continue IV Solu-Medrol 40 mg IV BID * Continue scheduled DuoNebs * Home Sergey is nonformulary. Transitioned to Trelegy during admission. * No change in sputum and no indication for antibiotics (2) Chronic kidney disease: Code(s): N18.9 - Chronic kidney disease, unspecified Status: Acute Assessment and Plan: Patient states that he sees Nephrology on regular basis. * He is unsure of his baseline * Records have been requested from Nephrology * Creatinine 2.0 today. Continue to monitor BMP. Avoid nephrotoxins. (3) Weakness: Code(s): R53.1 - Weakness Status: Acute Assessment and Plan: Complained of of weakness of bilateral lower extremities * Likely due to physical deconditioning. * Recently evaluated June 2021 for same complaint, at that time he had CT of the thoracic spine which showed no acute abnormalities * B12 and folate within normal limits, TSH slightly low but normal T4 * Appreciate PT/OT evaluation (4) Elevated troponin: Code(s): R77.8 - Other specified abnormalities of plasma proteins Status: Acute Assessment and Plan: Minimally elevated with peak at 0.044 * Patient is completely asymptomatic. * EKG reviewed without any ST abnormalities noted * May be related to his chronic kidney disease * No further intervention required at this time (5) Diabetes type 2, controlled: Code(s): E11.9 - Type 2 diabetes mellitus without complications Status: Acute Assessment and Plan: A1c 6.3. Blood sugars have been elevated above target while on IV steroids * Continue Accu-Cheks, high dose sliding scale insulin, hypoglycemic protocol * Continue home medications including pioglitazone, sitagliptin, glimepiride * Added Lantus while on steroids. Increase to 20 units qHS * Scheduled NovoLog 7 units with meals * Monitor glucose trends closely and adjust insulin as needed for glycemic control (6) Fall: Code(s): W19.XXXA - Unspecified fall, initial encounter Status: Acute Assessment and Plan: Mechanical fall yesterday. See subjective for details * Implement fall precautions * Check orthostatics * Appreciate PT/OT eval Subjective Date/time seen: 07/30/21 14:40 Interval history: Date of service: 07/30/2021 Miky Fuentes is a 81-year-old male with a history of COPD, CKD, CAD, type 2 diabetes mellitus, hypertension, hyperlipidemia, and dementia who is seen in follow-up for COPD exacerbation. He feels slightly improved. He does endorse shortness of breath ?off and on. When asked him to elaborate on this he stated it ?comes and goes.? He states that his wheezing is constant. He has a nonproductive cough. He cannot think of anything that makes his shortness of breath better or worse. He endorses dizziness. He he also has some pain in his right arm and shoulder today. He tells me that yesterday he fell in the bathroom. He was reaching over to pick something up and he slipped and fell straight down. States he caught himself with his hands. He did not hit his head or lose consciousness. He denies any precipitating symptoms. He has no pain from this. He endorses a good appetite. Denies abdominal pain, nausea, vomiting, fever, chills. States his last bowel movement
--- NOTE | 2021-07-30 14:40 | PM.IMPN ---
Progress Note: A&P Assessment and Plan (1) Acute exacerbation of chronic obstructive pulmonary disease: Code(s): J44.1 - Chronic obstructive pulmonary disease with (acute) exacerbation Status: Acute Assessment and Plan: Presented with increased shortness of breath with audible wheezing Continue IV Solu-Medrol 40 mg IV BID Continue scheduled DuoNebs Home Sergey is nonformulary. Transitioned to Trelegy during admission. No change in sputum and no indication for antibiotics (2) Chronic kidney disease: Code(s): N18.9 - Chronic kidney disease, unspecified Status: Acute Assessment and Plan: Patient states that he sees Nephrology on regular basis. He is unsure of his baseline Records have been requested from Nephrology Creatinine 2.0 today. Continue to monitor BMP. Avoid nephrotoxins. (3) Weakness: Code(s): R53.1 - Weakness Status: Acute Assessment and Plan: Complained of of weakness of bilateral lower extremities Likely due to physical deconditioning. Recently evaluated June 2021 for same complaint, at that time he had CT of the thoracic spine which showed no acute abnormalities B12 and folate within normal limits, TSH slightly low but normal T4 Appreciate PT/OT evaluation (4) Elevated troponin: Code(s): R77.8 - Other specified abnormalities of plasma proteins Status: Acute Assessment and Plan: Minimally elevated with peak at 0.044 Patient is completely asymptomatic. EKG reviewed without any ST abnormalities noted May be related to his chronic kidney disease No further intervention required at this time (5) Diabetes type 2, controlled: Code(s): E11.9 - Type 2 diabetes mellitus without complications Status: Acute Assessment and Plan: A1c 6.3. Blood sugars have been elevated above target while on IV steroids Continue Accu-Cheks, high dose sliding scale insulin, hypoglycemic protocol Continue home medications including pioglitazone, sitagliptin, glimepiride Added Lantus while on steroids. Increase to 20 units qHS Scheduled NovoLog 7 units with meals Monitor glucose trends closely and adjust insulin as needed for glycemic control (6) Fall: Code(s): W19.XXXA - Unspecified fall, initial encounter Status: Acute Assessment and Plan: Mechanical fall yesterday. See subjective for details Implement fall precautions Check orthostatics Appreciate PT/OT eval Subjective Date/time seen: 07/30/21 14:40 Interval history: Date of service: 07/30/2021 Miky Fuentes is a 81-year-old male with a history of COPD, CKD, CAD, type 2 diabetes mellitus, hypertension, hyperlipidemia, and dementia who is seen in follow-up for COPD exacerbation. He feels slightly improved. He does endorse shortness of breath ?off and on. When asked him to elaborate on this he stated it ?comes and goes.? He states that his wheezing is constant. He has a nonproductive cough. He cannot think of anything that makes his shortness of breath better or worse. He endorses dizziness. He he also has some pain in his right arm and shoulder today. He tells me that yesterday he fell in the bathroom. He was reaching over to pick something up and he slipped and fell straight down. States he caught himself with his hands. He did not hit his head or lose consciousness. He denies any precipitating symptoms. He has no pain from this. He endorses a good appetite. Denies abdominal pain, nausea, vomiting, fever, chills. States his last bowel movement was several days ago. Review of Systems Review of Systems: All systems reviewed & are unremarkable except as noted in HPI and below Exam Narrative: General: Well-nourished, chronically ill-appearing 81 year-old male, sitting in a chair by the bedside, comfortable, NARD Neuro: awake, alert and oriented x3 but does exhibit confusion, speech clear, no focal neuro deficits
[2021-07-30 16:57] LABS: Glucose Point of Care 169 mg/dl (65-105)
[2021-07-30] MEDS: INSULIN ASPART (*BKC) 100 UNITS/ML 7 UNITS SUB-Q (17:54)
[2021-07-30] MEDS: CYCLOBENZAPRINE HCL 10 MG TABLET PO (20:32)
[2021-07-30] MEDS: ASPIRIN 81 MG CHEWABLE TABLET PO (20:32)
[2021-07-30] MEDS: DOCUSATE SODIUM 100 MG CAPSULE PO (20:33)
[2021-07-30] MEDS: INSULIN GLARGINE (*BKC) 100 UNITS/ML 20 UNITS SUB-Q (20:37)
[2021-07-30] MEDS: ROSUVASTATIN 10 MG TABLET 20 MG PO (20:55)
[2021-07-30 21:56] LABS: Glucose Point of Care 250 mg/dl (65-105)
[2021-07-31] VITALS (17 sets, daily range): BP systolic 87–134; BP diastolic 47–63; PULSE 54–67; RESP 16–24; TEMP 36.3–37.1; O2SAT 95–100
[2021-07-31] MEDS: IPRATROPIUM BR 0.02% INH SOLN 0.5 MG/2.5 ML VIAL INHALATION ×4 (02:00→19:53)
[2021-07-31] MEDS: ALBUTEROL SULFATE NEB 2.5 MG/0.5 ML INH 5 MG INHALATION ×4 (02:00→19:52)
[2021-07-31 06:07] LABS: Hematocrit 29.7 % (42.0-52.0); Hemoglobin 9.3 g/dL (14.0-18.0); Mean Corpuscular HGB Conc 31.3 g/dl (32-36); Mean Corpuscular Hemoglobin 30.1 pg (26-34); Mean Corpuscular Volume 96.1 fl (80-100); Mean Platelet Volume 10.7 fl (7.4-10.4); Platelet Count Result 149 k/mm3 (150-375); Red Blood Count 3.09 M/mm3 (4.6-6.20); White Blood Count 8.3 K/mm3 (4.5-10.0)
[2021-07-31 06:25] LABS: Anion Gap 4 mmol/L (8-16); Blood Urea Nitrogen 48 mg/dL (9-20); Calcium 7.9 mg/dL (8.4-10.2); Carbon Dioxide 27 mmol/L (22-30); Chloride 99 mmol/L (98-107); Estimated CRCL calculation 25 ml/min; Estimated Glomerular Filt Rate 26; Glucose 232 mg/dL (65-110); Potassium 4.7 mmol/L (3.4-5.0); Sodium 130 mmol/L (137-145)
[2021-07-31] MEDS: FLUTICASONE/UMECLIDIN/VILANTER 100-62.5-25 MCG ELLIPTA 1 PUFF INHALATION (08:13)
[2021-07-31] MEDS: INSULIN ASPART (*BKC) 100 UNITS/ML 7 UNITS SUB-Q ×2 (08:48→12:23)
[2021-07-31] MEDS: GLIMEPIRIDE 2 MG TABLET PO (08:49)
[2021-07-31] MEDS: INSULIN ASPART (*BKC) 100 UNITS/ML SUB-Q ×3 (08:49→17:40)
[2021-07-31] MEDS: HEPARIN SODIUM 5,000 UNITS/ML VIAL 5000 UNITS SUB-Q ×2 (08:49→20:23)
[2021-07-31] MEDS: DONEPEZIL HCL 10 MG TABLET PO (08:49)
[2021-07-31] MEDS: FAMOTIDINE 20 MG TABLET PO ×2 (08:49→20:24)
[2021-07-31] MEDS: methylPREDNISolone SOD SUCC 40 MG VIAL IV PUSH ×2 (08:49→20:33)
[2021-07-31] MEDS: ALPRAZolam (*CRX) 0.5 MG TABLET PO (08:49)
[2021-07-31] MEDS: polyethylene glycoL 3350 17 GM POWD.PACK PO (08:50)
[2021-07-31] MEDS: DOCUSATE SODIUM 100 MG CAPSULE PO (08:50)
[2021-07-31] MEDS: amLODIPine BESYLATE 5 MG TABLET PO (08:50)
[2021-07-31] MEDS: EZETIMIBE 5 MG TABLET PO (08:50)
[2021-07-31] MEDS: GABAPENTIN 300 MG CAPSULE PO ×2 (08:50→17:40)
[2021-07-31] MEDS: carvediloL 12.5 MG TABLET PO (08:50)
[2021-07-31] MEDS: PIOGLITAZONE HCL 30 MG TABLET PO (08:50)
--- NOTE | 2021-07-31 10:06 | PCPTNOTE ---
Attempted to see patient for PT at 9:54, patient on toilet prior to therapy. Upon entering room to assist patient off toilet, patient then reported he felt dizziness, sweaty/ clammy, and that he feels he is going to pass out. Called for assistance of 2nd person and monitored patient's vitals. Heart rate was 115 and decreased to 55-61, blood pressure 102/45, Spo2 96% sitting on toilet. Assisted patient back to bed and checked vitals heart rate 56-61, blood pressure 128/44 supine. RN aware and in room assessing patient. PT treatment unable to be completed.
[2021-07-31 10:08] LABS: Glucose Point of Care 273 mg/dl (65-105)
[2021-07-31] MEDS: ONDANSETRON INJ 4 MG/2 ML VIAL IV PUSH (10:09)
--- NOTE | 2021-07-31 10:23 | PC.NURSE ---
Pt assisted to bathroom. Large BM. C/O dizziness and sweating. HR elevated. Assisted back to bed per staff. VS rechecked. HR 63 with BP 146/54 and oxygen saturation 99%. States dizziness resolving. C/O stomach upset so Zofran given. Resting comfortably with call light in reach. Provider made aware.
[2021-07-31 11:56] LABS: Glucose Point of Care 326 mg/dl (65-105)
--- NOTE | 2021-07-31 15:23 | P.PNIM_ITS ---
Progress Note: A&P Assessment and Plan (1) Acute exacerbation of chronic obstructive pulmonary disease: Code(s): J44.1 - Chronic obstructive pulmonary disease with (acute) exacerbation Status: Acute Assessment and Plan: Presented with increased shortness of breath with audible wheezing * Wean IV Solu-Medrol to prednisone 40 mg daily * Continue scheduled DuoNebs * Home Sergey is nonformulary. Transitioned to Trelegy during admission. * No change in sputum and no indication for antibiotics (2) Xnixt-et-gqqyimt kidney injury: Code(s): N17.9 - Acute kidney failure, unspecified; N18.9 - Chronic kidney disease, unspecified Status: Acute Assessment and Plan: History of CKD established with Nephrology with worsening in renal function today * Creatinine elevated up to 2.4, BUN 48 * May be due to hypoperfusion from hypotension * Renal ultrasound showed left renal atrophy new from most recent CT * Will proceed with Nephrology consult given this change * Hold furosemide. Avoid nephrotoxins. * Monitor renal function closely (3) Orthostatic hypotension: Code(s): I95.1 - Orthostatic hypotension Status: Acute Assessment and Plan: Patient noted to have symptomatic orthostatic hypotension * 28 point drop in systolic BP from supine to standing position today * Administer 250 cc IV fluid bolus * Apply Michael hose * Fall precautions * Check a.m. cortisol * Hold amlodipine and carvedilol * Continue to monitor orthostatics q shift (4) Pre-syncope: Code(s): R55 - Syncope and collapse Status: Acute Assessment and Plan: Vasovagal episode today after straining to have a large bowel movement * No loss his consciousness * Patient being hydrated and monitoring blood pressure as above (5) Elevated troponin: Code(s): R77.8 - Other specified abnormalities of plasma proteins Status: Acute Assessment and Plan: Minimally elevated with peak at 0.044 * Patient is completely asymptomatic. * EKG reviewed without any ST abnormalities noted * May be related to his chronic kidney disease * No further intervention required at this time (6) Diabetes type 2, controlled: Code(s): E11.9 - Type 2 diabetes mellitus without complications Status: Acute Assessment and Plan: A1c 6.3. Blood sugars elevated above target while on IV steroids * Continue Accu-Cheks, high dose sliding scale insulin, hypoglycemic protocol * Continue home medications including pioglitazone, sitagliptin, glimepiride * Added Lantus while on steroids. Increase to 24 units qHS * Scheduled NovoLog 8 units with meals * Monitor glucose trends closely and adjust insulin as needed for glycemic control (7) Weakness: Code(s): R53.1 - Weakness Status: Acute Assessment and Plan: Complained of of weakness of bilateral lower extremities * Likely due to physical deconditioning. * Recently evaluated June 2021 for same complaint, at that time he had CT of the thoracic spine which showed no acute abnormalities * B12 and folate within normal limits, TSH slightly low but normal T4 * Appreciate PT/OT evaluation Subjective Date/time seen: 07/31/21 15:23 Interval history: Date of service: 07/31/2021 Miky Fuentes is a 81-year-old male with a history of COPD, CKD, CAD, type 2 diabetes mellitus, hypertension, hyperlipidemia, and dementia who is seen in follow-up for COPD exacerbation. He continues to endorse shortness of breath and wheezing which he states is chr
--- NOTE | 2021-07-31 15:23 | PM.IMPN ---
Progress Note: A&P Assessment and Plan (1) Acute exacerbation of chronic obstructive pulmonary disease: Code(s): J44.1 - Chronic obstructive pulmonary disease with (acute) exacerbation Status: Acute Assessment and Plan: Presented with increased shortness of breath with audible wheezing Wean IV Solu-Medrol to prednisone 40 mg daily Continue scheduled DuoNebs Home Kathitri is nonformulary. Transitioned to Trelegy during admission. No change in sputum and no indication for antibiotics (2) Cuhqk-hw-rxdftuc kidney injury: Code(s): N17.9 - Acute kidney failure, unspecified; N18.9 - Chronic kidney disease, unspecified Status: Acute Assessment and Plan: History of CKD established with Nephrology with worsening in renal function today Creatinine elevated up to 2.4, BUN 48 May be due to hypoperfusion from hypotension Renal ultrasound showed left renal atrophy new from most recent CT Will proceed with Nephrology consult given this change Hold furosemide. Avoid nephrotoxins. Monitor renal function closely (3) Orthostatic hypotension: Code(s): I95.1 - Orthostatic hypotension Status: Acute Assessment and Plan: Patient noted to have symptomatic orthostatic hypotension 28 point drop in systolic BP from supine to standing position today Administer 250 cc IV fluid bolus Apply Michael hose Fall precautions Check a.m. cortisol Hold amlodipine and carvedilol Continue to monitor orthostatics q shift (4) Pre-syncope: Code(s): R55 - Syncope and collapse Status: Acute Assessment and Plan: Vasovagal episode today after straining to have a large bowel movement No loss his consciousness Patient being hydrated and monitoring blood pressure as above (5) Elevated troponin: Code(s): R77.8 - Other specified abnormalities of plasma proteins Status: Acute Assessment and Plan: Minimally elevated with peak at 0.044 Patient is completely asymptomatic. EKG reviewed without any ST abnormalities noted May be related to his chronic kidney disease No further intervention required at this time (6) Diabetes type 2, controlled: Code(s): E11.9 - Type 2 diabetes mellitus without complications Status: Acute Assessment and Plan: A1c 6.3. Blood sugars elevated above target while on IV steroids Continue Accu-Cheks, high dose sliding scale insulin, hypoglycemic protocol Continue home medications including pioglitazone, sitagliptin, glimepiride Added Lantus while on steroids. Increase to 24 units qHS Scheduled NovoLog 8 units with meals Monitor glucose trends closely and adjust insulin as needed for glycemic control (7) Weakness: Code(s): R53.1 - Weakness Status: Acute Assessment and Plan: Complained of of weakness of bilateral lower extremities Likely due to physical deconditioning. Recently evaluated June 2021 for same complaint, at that time he had CT of the thoracic spine which showed no acute abnormalities B12 and folate within normal limits, TSH slightly low but normal T4 Appreciate PT/OT evaluation Subjective Date/time seen: 07/31/21 15:23 Interval history: Date of service: 07/31/2021 Miky Fuentes is a 81-year-old male with a history of COPD, CKD, CAD, type 2 diabetes mellitus, hypertension, hyperlipidemia, and dementia who is seen in follow-up for COPD exacerbation. He continues to endorse shortness of breath and wheezing which he states is chronic for him but overall this seems to be improved. He denies cough. Today after receiving MiraLax he sat down to have a bowel movement. He was reportedly straining very hard and had a large bowel movement. After this he had an episode of presyncope in which she became diaphoretic, dizzy, and weak. He was able to get back into the bed and did feel better after lying down. He did not lose consciousness. He denies nausea or vomiting.
[2021-07-31] MEDS: SODIUM CHLORIDE 0.9% IV 250 ML 100 ML IV CONT (16:10)
[2021-07-31 16:19] LABS: Glucose Point of Care 387 mg/dl (65-105)
--- NOTE | 2021-07-31 17:10 | PM.CNNEP ---
Assessment and Plan Assessment and plan (1) ROEL (acute kidney injury): Code(s): N17.9 - Acute kidney failure, unspecified Status: Acute Assessment and Plan: possibly due to mild dehydration and relative hypotension (worsened by orthostasis) check urine electrolytes follow-up on renal ultrasound optimize hemodynamics/BP follow repeat labs and UOP (2) Stage 3b chronic kidney disease: Code(s): N18.32 - Chronic kidney disease, stage 3b Status: Chronic Assessment and Plan: baseline creatinine runs ~ 1.9 - 2.1mg/dl felt to be secondary to diabetes, hypertension, vascular disease, and age based on outpatient evaluation (3) Acute exacerbation of chronic obstructive pulmonary disease: Code(s): J44.1 - Chronic obstructive pulmonary disease with (acute) exacerbation Status: Acute Assessment and Plan: on steroids, nebulizer treatments, and supplemental oxygen continue supportive therapy (4) Orthostatic hypotension: Code(s): I95.1 - Orthostatic hypotension Status: Acute Assessment and Plan: as noted by testing related to volume depletion versus autonomic dysfunction from his diabetes(?) agree with holding BP medications follow-up on cortisol trial of IVFs(?) follow trend of hemodynamics (5) Diabetes: Code(s): E11.9 - Type 2 diabetes mellitus without complications Status: Chronic Assessment and Plan: follow accuchecks glycemic control (6) Weakness: Code(s): R53.1 - Weakness Status: Acute Assessment and Plan: suspect multifactorial - acute illness, COPD exacerbation, orthostatic hypotension...etc continue supportive therapy PT/OT as tolerated Will continue to follow. History of Present Illness Reason for Consult Consult date: 07/31/21 Reason for consult: acute renal failure (on chronic kidney disease) Chief Complaint Chief complaint: COPD Exacerbation, Elevated Troponin History of Present Illness Narrative: The patient is a 81-year-old male with a past medical history as noted below who presented to [facility] Emergency room with multiple complaints. The patient states that he has issues with bilateral lower extremity weakness has progressively gotten worse over the last few days associated with pain, difficulty walking, and frequent falls. The symptoms have been progressively getting worse over the last few days and apparently the day prior to admission, he fell out of bed resulting an abrasion to his right forehead. He denies any other specific symptoms with regard to chest pain or shortness of breath although he does have known COPD but states that his shortness of breath is at baseline. He reports compliance with his medications and denies any other subjective symptoms with regard to fevers, chills, nausea, vomiting, dysuria, hematuria, frequency, or urgency. Workup and evaluation emergency room demonstrated the patient to be hemodynamically stable but and although he initially denied any worsening shortness of breath, he apparently told the ER physician that he did have some worsening shortness of breath that was worse with exertion, accompanied by cough, productive, yellowish sputum that started 2 days ago. routine blood test demonstrated labs consistent with his known history of chronic kidney disease with his creatinine not that far off from his baseline. He had no critical electrolyte abnormalities and his EKG did not show any significant ischemic changes and his mildly elevated troponin was thought to be secondary to his known chronic kidney disease as already mentioned. It was felt his symptoms of shortness of breath and progressive weakness in his lower extremities may be a manifestation of a COPD exacerbation. He was given a nebulizer treatment as well as IV steroids and subsequent admitted to the hospital for further evaluation and therapy. Since his admission, is be
[2021-07-31] MEDS: INSULIN ASPART (*BKC) 100 UNITS/ML 8 UNITS SUB-Q (17:41)
[2021-07-31] MEDS: INSULIN GLARGINE (*BKC) 100 UNITS/ML 24 UNITS SUB-Q (20:16)
[2021-07-31] MEDS: CYCLOBENZAPRINE HCL 10 MG TABLET PO (20:23)
[2021-07-31] MEDS: ASPIRIN 81 MG CHEWABLE TABLET PO (20:23)
[2021-07-31] MEDS: ROSUVASTATIN 10 MG TABLET 20 MG PO (20:33)
[2021-07-31 22:05] LABS: Glucose Point of Care 293 mg/dl (65-105)
[2021-08-01] VITALS (9 sets, daily range): BP systolic 120–131; BP diastolic 48–58; PULSE 56–69; RESP 16–22; TEMP 36.5–36.9; O2SAT 95–100
[2021-08-01] MEDS: ALBUTEROL SULFATE NEB 2.5 MG/0.5 ML INH 5 MG INHALATION ×4 (01:32→20:14)
[2021-08-01] MEDS: IPRATROPIUM BR 0.02% INH SOLN 0.5 MG/2.5 ML VIAL INHALATION ×4 (01:32→20:14)
[2021-08-01 06:06] LABS: Hematocrit 28.6 % (42.0-52.0); Hemoglobin 8.9 g/dL (14.0-18.0); Mean Corpuscular HGB Conc 31.1 g/dl (32-36); Mean Corpuscular Hemoglobin 30.5 pg (26-34); Mean Corpuscular Volume 97.9 fl (80-100); Mean Platelet Volume 10.9 fl (7.4-10.4); Platelet Count Result 146 k/mm3 (150-375); Red Blood Count 2.92 M/mm3 (4.6-6.20); Red Cell Distribution Width 14.2 % (11.5-14.5); White Blood Count 8.6 K/mm3 (4.5-10.0)
[2021-08-01 06:16] LABS: Albumin Level 2.6 g/dL (3.5-5.1); Anion Gap 4 mmol/L (8-16); Anion Gap 6 mmol/L (8-16); Blood Urea Nitrogen 56 mg/dL (9-20); Blood Urea Nitrogen 57 mg/dL (9-20); Calcium 7.7 mg/dL (8.4-10.2); Calcium 7.8 mg/dL (8.4-10.2); Carbon Dioxide 25 mmol/L (22-30); Carbon Dioxide 27 mmol/L (22-30); Chloride 95 mmol/L (98-107); Chloride 96 mmol/L (98-107); Creatine Kinase 34 U/L (55-170); Estimated CRCL calculation 18 ml/min; Estimated CRCL calculation 19 ml/min; Estimated Glomerular Filt Rate 18; Estimated Glomerular Filt Rate 19; Glucose 230 mg/dL (65-110); Glucose 235 mg/dL (65-110); Phosphorus 3.4 mg/dL (2.5-4.5); Potassium 5.5 mmol/L (3.4-5.0); Potassium 5.6 mmol/L (3.4-5.0); Sodium 126 mmol/L (137-145); Sodium 127 mmol/L (137-145)
[2021-08-01 07:56] LABS: Thyroid Stimulating Hormone Reflex 0.492 uIU/mL (0.465-4.68)
[2021-08-01 08:06] LABS: Glucose Point of Care 222 mg/dl (65-105)
[2021-08-01] MEDS: FLUTICASONE/UMECLIDIN/VILANTER 100-62.5-25 MCG ELLIPTA 1 PUFF INHALATION (08:10)
[2021-08-01] MEDS: INSULIN ASPART (*BKC) 100 UNITS/ML SUB-Q ×2 (08:32→12:10)
[2021-08-01] MEDS: INSULIN ASPART (*BKC) 100 UNITS/ML 8 UNITS SUB-Q ×3 (08:33→16:58)
[2021-08-01] MEDS: DOCUSATE SODIUM 100 MG CAPSULE PO ×2 (08:34→20:39)
[2021-08-01] MEDS: predniSONE 20 MG TABLET 40 MG PO (08:34)
[2021-08-01] MEDS: PIOGLITAZONE HCL 30 MG TABLET PO (08:35)
[2021-08-01] MEDS: GLIMEPIRIDE 2 MG TABLET PO (08:35)
[2021-08-01] MEDS: DONEPEZIL HCL 10 MG TABLET PO (08:35)
[2021-08-01] MEDS: FAMOTIDINE 20 MG TABLET PO ×2 (08:35→20:40)
[2021-08-01] MEDS: GABAPENTIN 300 MG CAPSULE PO ×2 (08:35→16:58)
[2021-08-01] MEDS: EZETIMIBE 5 MG TABLET PO (08:35)
[2021-08-01] MEDS: polyethylene glycoL 3350 17 GM POWD.PACK PO (08:36)
[2021-08-01] MEDS: HEPARIN SODIUM 5,000 UNITS/ML VIAL 5000 UNITS SUB-Q ×2 (08:44→20:41)
[2021-08-01] MEDS: ALPRAZolam (*CRX) 0.5 MG TABLET PO (08:46)
[2021-08-01 09:49] LABS: Add Urine Microscopic? YES; Appearance Urine Clear (Clear); Bilirubin Urine Negative (Negative); Blood Urine 1+ (Negative); Color Urine Yellow (Yellow); Glucose Urine UA Negative (Negative); Ketones Urine Negative (Negative); Leukocyte Esterase Ur Negative LEU/UL (Negative); Nitrate Urine Negative (Negative); Protein Urine Negative (Negative); RBC Urine 0-2 /hpf (0-2); Specific Grav Ur 1.009 (1.001-1.035); Squamous Epithelial Cell Urine Rare /hpf (Few); Urobilinogen Urine Negative mg/dL (<2.0); WBC Urine 0-3 /hpf
[2021-08-01 11:37] LABS: Eosinophil Urine None Seen % (None Seen)
[2021-08-01 11:52] LABS: Creatinine Urine 36.3 mg/dL; Total Protein Urine Random 30 mg/dL; Ur Ttl Prot Creatinine Ratio 0.83 mg/mg (0-0.20)
[2021-08-01 11:53] LABS: Sodium Urine Random 9 meq/L
[2021-08-01] MEDS: SODIUM CHLORIDE 0.9% IV 1,000 ML 75 ML IV CONT (12:14)
[2021-08-01 12:18] LABS: Glucose Point of Care 216 mg/dl (65-105)
--- NOTE | 2021-08-01 12:47 | PM.PNNEP ---
Progress Note: A&P Assessment and Plan (1) ROEL (acute kidney injury): Code(s): N17.9 - Acute kidney failure, unspecified Status: Acute Assessment and Plan: possibly due to mild dehydration and relative hypotension (worsened by orthostasis) evaluation to date: renal ultrasound with left renal atrophy urine electrolytes are pre-renal CPK is okay urine eosinophils optimize hemodynamics/BP hold diuretics/BP medications trial of IVFs lokelma x 1 today for elevated K+ follow repeat labs and UOP (2) Stage 3b chronic kidney disease: Code(s): N18.32 - Chronic kidney disease, stage 3b Status: Chronic Assessment and Plan: baseline creatinine runs ~ 1.9 - 2.1mg/dl felt to be secondary to diabetes, hypertension, vascular disease, and age based on outpatient evaluation (3) Acute exacerbation of chronic obstructive pulmonary disease: Code(s): J44.1 - Chronic obstructive pulmonary disease with (acute) exacerbation Status: Acute Assessment and Plan: on steroids, nebulizer treatments, and supplemental oxygen continue supportive therapy (4) Orthostatic hypotension: Code(s): I95.1 - Orthostatic hypotension Status: Acute Assessment and Plan: as noted by testing related to volume depletion versus autonomic dysfunction from his diabetes(?) urine electrolytes would support the former agree with holding BP medications IVF trial today follow trend of hemodynamics (5) Diabetes: Code(s): E11.9 - Type 2 diabetes mellitus without complications Status: Chronic Assessment and Plan: follow accuchecks glycemic control (6) Weakness: Code(s): R53.1 - Weakness Status: Acute Assessment and Plan: suspect multifactorial - acute illness, COPD exacerbation, orthostatic hypotension...etc continue supportive therapy PT/OT as tolerated Discussed case with WESTLEY Queen today regarding plan of care. Will continue to follow. Subjective Date/time seen: 08/01/21 12:47 No apparent distress noted at the time of my visit; his renal function has deteriorated in the last 24 hours associated with mild hyperkalemia; breathing/respiratory status appears better if not stable; no acute issues/events overnight or earlier this AM. Exam Narrative: General: ill appearing male in NAD Heart: normal S1 and S2; no rub Lungs: coarse and decreased at bases with occassional wheezes Abdomen: soft, nontender, nondistended, positive bowel sounds Extremities: no cyanosis or clubbing; no edema Skin: warm and dry Objective Data Vital Signs Vital Signs: Vital Signs Temp Pulse Resp BP Pulse Ox 08/01/21 08:10 67 20 95 08/01/21 08:00 65 20 08/01/21 01:39 69 22 H 08/01/21 01:32 68 22 H 07/31/21 22:00 36.4 C 56 L 18 134/63 97 07/31/21 20:00 58 L 22 H 07/31/21 19:53 63 24 H 96 07/31/21 19:50 56 L 18 97 Intake/Output Intake/Output: Intake & Output 07/29/21 07/30/21 07/31/21 08/01/21 23:59 23:59 23:59 23:59 Intake Total 1520 1990 1760 1560 Output Total 900 1120 1400 550 Balance 620 140 974 8615 Meds/Results Medications: Active Medications Generic Name Dose Route Start Last Admin Trade Name Freq PRN Reason Stop Dose Admin Acetaminophen 650 mg 07/28/21 19:18 Acetaminophen 325 Mg Tablet PO Q6H PRN Mild Pain (1-3) or Fever Hydrocodone Bitart/Acetaminophen 2 tab 07/28/21 21:26 Hydrocodone/Acetaminophen (*Crx) 5-325 Mg Tablet PO Q6H PRN severe pain Albuterol 5 mg 07/28/21 20:00 08/01/21 14:00 Albuterol Sulfate Neb 2.5 Mg/0.5 Ml Inh INHALATION 5 mg Q6HRT PUNEET Administration Alprazolam 0.5 mg 07/29/21 09:00 08/01/21 08:46 Alprazolam (*Crx) 0.5 Mg Tablet PO 0.5 mg DAILY PUNEET Administration Amlodipine Besylate 5 mg 07/29/21 09:00 07/31/21 08:50 Amlodipine Besylate 5 Mg Tablet PO 5 mg DA
--- NOTE | 2021-08-01 12:47 | P.PNNP_ITS ---
Progress Note: A&P Assessment and Plan (1) ROEL (acute kidney injury): Code(s): N17.9 - Acute kidney failure, unspecified Status: Acute Assessment and Plan: * possibly due to mild dehydration and relative hypotension (worsened by orthostasis) * evaluation to date: * renal ultrasound with left renal atrophy * urine electrolytes are pre-renal * CPK is okay * urine eosinophils * optimize hemodynamics/BP * hold diuretics/BP medications * trial of IVFs * lokelma x 1 today for elevated K+ * follow repeat labs and UOP (2) Stage 3b chronic kidney disease: Code(s): N18.32 - Chronic kidney disease, stage 3b Status: Chronic Assessment and Plan: * baseline creatinine runs ~ 1.9 - 2.1mg/dl * felt to be secondary to diabetes, hypertension, vascular disease, and age base d on outpatient evaluation (3) Acute exacerbation of chronic obstructive pulmonary disease: Code(s): J44.1 - Chronic obstructive pulmonary disease with (acute) exacerbation Status: Acute Assessment and Plan: * on steroids, nebulizer treatments, and supplemental oxygen * continue supportive therapy (4) Orthostatic hypotension: Code(s): I95.1 - Orthostatic hypotension Status: Acute Assessment and Plan: * as noted by testing * related to volume depletion versus autonomic dysfunction from his diabetes(?) * urine electrolytes would support the former * agree with holding BP medications * IVF trial today * follow trend of hemodynamics (5) Diabetes: Code(s): E11.9 - Type 2 diabetes mellitus without complications Status: Chronic Assessment and Plan: * follow accuchecks * glycemic control (6) Weakness: Code(s): R53.1 - Weakness Status: Acute Assessment and Plan: * suspect multifactorial - acute illness, COPD exacerbation, orthostatic hypotension...etc * continue supportive therapy * PT/OT as tolerated Discussed case with WESTLEY Queen today regarding plan of care. Will continue to follow. Subjective Date/time seen: 08/01/21 12:47 No apparent distress noted at the time of my visit; his renal function has deteriorated in the last 24 hours associated with mild hyperkalemia; breathing/respiratory status appears better if not stable; no acute issues/events overnight or earlier this AM. Exam Narrative: General: ill appearing male in NAD Heart: normal S1 and S2; no rub Lungs: coarse and decreased at bases with occassional wheezes Abdomen: soft, nontender, nondistended, positive bowel sounds Extremities: no cyanosis or clubbing; no edema Skin: warm and dry Objective Data Vital Signs Vital Signs: Vital Signs Temp Pulse Resp BP Pulse Ox 08/01/21 08:10 67 20 95 08/01/21 08:00 65 20 08/01/21 01:39 69 22 H 08/01/21 01:32 68 22 H 07/31/21 22:00 36.4 C 56 L 18 134/63 97 07/31/21 20:00 58 L 22 H 07/31/21 19:53 63 24 H 96 07/31/21 19:50 56 L 18 97 Intake/Output Intake/Output: Intake & Output 07/29/21 07/30/21 07/31/21 08/01/21 23:59 23:59 23:59 23:59 Intake Total 1520 1990 1760 1560 Output Total 900 1120 1400 550 Balance 620 120 805 4467 Meds/Results Medications: Active Medica
[2021-08-01] MEDS: SODIUM ZIRCONIUM CYCLOSILICATE 10 GM POWD.PACK PO (13:28)
--- NOTE | 2021-08-01 16:03 | P.PNIM_ITS ---
Progress Note: A&P Assessment and Plan (1) Acute exacerbation of chronic obstructive pulmonary disease: Code(s): J44.1 - Chronic obstructive pulmonary disease with (acute) exacerbation Status: Acute Assessment and Plan: Presented with increased shortness of breath with audible wheezing * Had symptomatic improvement with IV Solu-Medrol. Has been weaned to prednisone 40 mg daily * Continue scheduled DuoNebs * Home Sergey is nonformulary. Transitioned to Trelegy during admission. * No change in sputum and no indication for antibiotics (2) Nrjum-ur-agzwbey kidney injury: Code(s): N17.9 - Acute kidney failure, unspecified; N18.9 - Chronic kidney disease, unspecified Status: Acute Assessment and Plan: History of CKD established with Nephrology with acute worsening and renal function. Baseline creatinine reported at 1.9-2.1 * Creatinine elevated up to 3.2, BUN 56 * May be due to hypoperfusion from hypotension * Renal ultrasound showed left renal atrophy new from most recent CT * Appreciate nephrology consultation * Hold furosemide. Avoid nephrotoxins. * Begin IV fluids. Monitor volume status closely to avoid fluid overload * Monitor renal function closely (3) Orthostatic hypotension: Code(s): I95.1 - Orthostatic hypotension Status: Acute Assessment and Plan: Patient noted to have symptomatic orthostatic hypotension * 28 point drop in systolic BP from supine to standing position 07/31 * Michael hose * Fall precautions * Check a.m. cortisol * Hold amlodipine and carvedilol * Continue to monitor orthostatics q shift (4) Pre-syncope: Code(s): R55 - Syncope and collapse Status: Acute Assessment and Plan: 07/31: Vasovagal episode fter straining to have a large bowel movement * No loss OF consciousness * Patient being hydrated and monitoring blood pressure as above (5) Elevated troponin: Code(s): R77.8 - Other specified abnormalities of plasma proteins Status: Acute Assessment and Plan: Minimally elevated with peak at 0.044 * Patient is completely asymptomatic. * EKG reviewed without any ST abnormalities noted * May be related to his chronic kidney disease * No further intervention required at this time (6) Diabetes type 2, controlled: Code(s): E11.9 - Type 2 diabetes mellitus without complications Status: Acute Assessment and Plan: A1c 6.3. Blood sugars elevated above target while on IV steroids * Continue Accu-Cheks, high dose sliding scale insulin, hypoglycemic protocol * Continue home medications including pioglitazone, sitagliptin, glimepiride * Lantus 24 units qHS while on steroids * Scheduled NovoLog 8 units with meals * Monitor glucose trends closely and adjust insulin as needed for glycemic control (7) Weakness: Code(s): R53.1 - Weakness Status: Acute Assessment and Plan: Complained of of weakness of bilateral lower extremities * Likely due to physical deconditioning. * Recently evaluated June 2021 for same complaint, at that time he had CT of the thoracic spine which showed no acute abnormalities * B12, folate, TSH within normal limits * Appreciate PT/OT evaluation (8) Electrolyte abnormality: Code(s): E87.8 - Other disorders of electrolyte and fluid balance, not elsewhere classified Status: Acute Assessment and Plan: Likely due to acute kidney failure * Hyperkalemia: Potassium 5.5 this morning. Administer 10 g Lokelma * Hyponatremia: Sodium 127.
--- NOTE | 2021-08-01 16:03 | PM.IMPN ---
Progress Note: A&P Assessment and Plan (1) Acute exacerbation of chronic obstructive pulmonary disease: Code(s): J44.1 - Chronic obstructive pulmonary disease with (acute) exacerbation Status: Acute Assessment and Plan: Presented with increased shortness of breath with audible wheezing Had symptomatic improvement with IV Solu-Medrol. Has been weaned to prednisone 40 mg daily Continue scheduled DuoNebs Home Kathitri is nonformulary. Transitioned to Trelegy during admission. No change in sputum and no indication for antibiotics (2) Rhfnp-bt-puvgsut kidney injury: Code(s): N17.9 - Acute kidney failure, unspecified; N18.9 - Chronic kidney disease, unspecified Status: Acute Assessment and Plan: History of CKD established with Nephrology with acute worsening and renal function. Baseline creatinine reported at 1.9-2.1 Creatinine elevated up to 3.2, BUN 56 May be due to hypoperfusion from hypotension Renal ultrasound showed left renal atrophy new from most recent CT Appreciate nephrology consultation Hold furosemide. Avoid nephrotoxins. Begin IV fluids. Monitor volume status closely to avoid fluid overload Monitor renal function closely (3) Orthostatic hypotension: Code(s): I95.1 - Orthostatic hypotension Status: Acute Assessment and Plan: Patient noted to have symptomatic orthostatic hypotension 28 point drop in systolic BP from supine to standing position 07/31 Michael hose Fall precautions Check a.m. cortisol Hold amlodipine and carvedilol Continue to monitor orthostatics q shift (4) Pre-syncope: Code(s): R55 - Syncope and collapse Status: Acute Assessment and Plan: 07/31: Vasovagal episode fter straining to have a large bowel movement No loss OF consciousness Patient being hydrated and monitoring blood pressure as above (5) Elevated troponin: Code(s): R77.8 - Other specified abnormalities of plasma proteins Status: Acute Assessment and Plan: Minimally elevated with peak at 0.044 Patient is completely asymptomatic. EKG reviewed without any ST abnormalities noted May be related to his chronic kidney disease No further intervention required at this time (6) Diabetes type 2, controlled: Code(s): E11.9 - Type 2 diabetes mellitus without complications Status: Acute Assessment and Plan: A1c 6.3. Blood sugars elevated above target while on IV steroids Continue Accu-Cheks, high dose sliding scale insulin, hypoglycemic protocol Continue home medications including pioglitazone, sitagliptin, glimepiride Lantus 24 units qHS while on steroids Scheduled NovoLog 8 units with meals Monitor glucose trends closely and adjust insulin as needed for glycemic control (7) Weakness: Code(s): R53.1 - Weakness Status: Acute Assessment and Plan: Complained of of weakness of bilateral lower extremities Likely due to physical deconditioning. Recently evaluated June 2021 for same complaint, at that time he had CT of the thoracic spine which showed no acute abnormalities B12, folate, TSH within normal limits Appreciate PT/OT evaluation (8) Electrolyte abnormality: Code(s): E87.8 - Other disorders of electrolyte and fluid balance, not elsewhere classified Status: Acute Assessment and Plan: Likely due to acute kidney failure Hyperkalemia: Potassium 5.5 this morning. Administer 10 g Lokelma Hyponatremia: Sodium 127. Continue fluids Repeat BMP at 6:00 p.m. to reassess Monitor labs closely Subjective Date/time seen: 08/01/21 16:03 Interval history: Date of service: 07/31/2021 Miky Fuentes is a 81-year-old male with a history of COPD, CKD, CAD, type 2 diabetes mellitus, hypertension, hyperlipidemia, and dementia who is seen in follow-up for COPD exacerbation. He is feeling okay today. He endorses chronic dizziness which she states is un
[2021-08-01 16:26] LABS: Glucose Point of Care 121 mg/dl (65-105)
[2021-08-01 19:58] LABS: Anion Gap 7 mmol/L (8-16); Blood Urea Nitrogen 62 mg/dL (9-20); Calcium 7.7 mg/dL (8.4-10.2); Carbon Dioxide 25 mmol/L (22-30); Chloride 95 mmol/L (98-107); Estimated CRCL calculation 21 ml/min; Estimated Glomerular Filt Rate 21; Glucose 187 mg/dL (65-110); Sodium 127 mmol/L (137-145)
[2021-08-01] MEDS: ROSUVASTATIN 10 MG TABLET 20 MG PO (20:35)
[2021-08-01] MEDS: CYCLOBENZAPRINE HCL 10 MG TABLET PO (20:39)
[2021-08-01] MEDS: INSULIN GLARGINE (*BKC) 100 UNITS/ML 24 UNITS SUB-Q (20:41)
[2021-08-01] MEDS: ASPIRIN 81 MG CHEWABLE TABLET PO (20:41)
[2021-08-01 21:35] LABS: Glucose Point of Care 180 mg/dl (65-105)
[2021-08-02] VITALS (19 sets, daily range): BP systolic 90–147; BP diastolic 43–83; PULSE 62–69; RESP 16–20; TEMP 35.9–36.8; O2SAT 94–99
[2021-08-02] MEDS: SODIUM CHLORIDE 0.9% IV 1,000 ML 75 ML IV CONT ×2 (01:28→15:09)
[2021-08-02] MEDS: IPRATROPIUM BR 0.02% INH SOLN 0.5 MG/2.5 ML VIAL INHALATION ×4 (02:20→21:25)
[2021-08-02] MEDS: ALBUTEROL SULFATE NEB 2.5 MG/0.5 ML INH 5 MG INHALATION ×4 (02:20→21:24)
[2021-08-02 06:09] LABS: Hematocrit 27.3 % (42.0-52.0); Hemoglobin 8.6 g/dL (14.0-18.0); Immature Platelet Fraction Pct 5.6 % (0.9-11.2); Mean Corpuscular HGB Conc 31.5 g/dl (32-36); Mean Corpuscular Hemoglobin 30.8 pg (26-34); Mean Corpuscular Volume 97.8 fl (80-100); Mean Platelet Volume 10.9 fl (7.4-10.4); Platelet Count Result 141 k/mm3 (150-375); Red Blood Count 2.79 M/mm3 (4.6-6.20); White Blood Count 6.5 K/mm3 (4.5-10.0)
[2021-08-02 06:20] LABS: Alanine Aminotransferase 24 U/L (4-50); Albumin Level 2.4 g/dL (3.5-5.1); Alkaline Phosphatase 58 U/L (38-126); Anion Gap 6 mmol/L (8-16); Aspartate Amino Transferase 18 U/L (17-59); Bilirubin,Total 0.3 mg/dL (0.2-1.3); Blood Urea Nitrogen 58 mg/dL (9-20); Calcium 7.7 mg/dL (8.4-10.2); Carbon Dioxide 26 mmol/L (22-30); Chloride 99 mmol/L (98-107); Estimated CRCL calculation 22 ml/min; Estimated Glomerular Filt Rate 22; Glucose 112 mg/dL (65-110); Magnesium 2.2 mg/dL (1.6-2.3); Phosphorus 3.8 mg/dL (2.5-4.5); Potassium 4.9 mmol/L (3.4-5.0); Sodium 131 mmol/L (137-145)
[2021-08-02 06:55] LABS: Cortisol Random 6.11 ug/dL
[2021-08-02 07:41] LABS: Glucose Point of Care 84 mg/dl (65-105)
[2021-08-02] MEDS: FLUTICASONE/UMECLIDIN/VILANTER 100-62.5-25 MCG ELLIPTA 1 PUFF INHALATION (08:04)
[2021-08-02] MEDS: EZETIMIBE 5 MG TABLET PO (08:18)
[2021-08-02] MEDS: DOCUSATE SODIUM 100 MG CAPSULE PO ×2 (08:18→20:28)
[2021-08-02] MEDS: DONEPEZIL HCL 10 MG TABLET PO (08:18)
[2021-08-02] MEDS: GABAPENTIN 300 MG CAPSULE PO ×2 (08:18→17:20)
[2021-08-02] MEDS: FAMOTIDINE 20 MG TABLET PO ×2 (08:19→20:28)
[2021-08-02] MEDS: predniSONE 20 MG TABLET 40 MG PO (08:19)
[2021-08-02] MEDS: polyethylene glycoL 3350 17 GM POWD.PACK PO (08:20)
[2021-08-02] MEDS: HEPARIN SODIUM 5,000 UNITS/ML VIAL 5000 UNITS SUB-Q ×2 (08:20→20:28)
[2021-08-02] MEDS: ALPRAZolam (*CRX) 0.5 MG TABLET PO (08:41)
[2021-08-02] MEDS: GLIMEPIRIDE 2 MG TABLET PO (08:53)
[2021-08-02] MEDS: PIOGLITAZONE HCL 30 MG TABLET PO (08:53)
--- NOTE | 2021-08-02 10:48 | P.PNNP_ITS ---
Progress Note: A&P Assessment and Plan (1) ROEL (acute kidney injury): Code(s): N17.9 - Acute kidney failure, unspecified Status: Acute Assessment and Plan: * slow improvement noted * possibly due to mild dehydration and relative hypotension (worsened by orthostasis) * evaluation to date: * renal ultrasound with left renal atrophy * urine electrolytes are pre-renal * CPK is okay * urine eosinophils negative * optimize hemodynamics/BP as tolerated * hold diuretics/BP medications * trial of gentle IVFs * lokelma x 1 (on 08/02/21) for elevated K+ -- doing better * follow repeat labs and UOP (2) Stage 3b chronic kidney disease: Code(s): N18.32 - Chronic kidney disease, stage 3b Status: Chronic Assessment and Plan: * baseline creatinine runs ~ 1.9 - 2.1mg/dl * felt to be secondary to diabetes, hypertension, vascular disease, and age based on outpatient evaluation (3) Acute exacerbation of chronic obstructive pulmonary disease: Code(s): J44.1 - Chronic obstructive pulmonary disease with (acute) exacerbation Status: Acute Assessment and Plan: * on steroids, nebulizer treatments, and supplemental oxygen * continue supportive therapy (4) Orthostatic hypotension: Code(s): I95.1 - Orthostatic hypotension Status: Acute Assessment and Plan: * as noted by testing * related to volume depletion versus autonomic dysfunction from his diabetes(?) * urine electrolytes would support the former * agree with holding BP medications * cortisol low but he is on steroid therapy * IVFs for now * follow trend of hemodynamics (5) Diabetes: Code(s): E11.9 - Type 2 diabetes mellitus without complications Status: Chronic Assessment and Plan: * follow accuchecks * glycemic control (6) Weakness: Code(s): R53.1 - Weakness Status: Acute Assessment and Plan: * suspect multifactorial - acute illness, COPD exacerbation, orthostatic hypotension...etc * continue supportive therapy * PT/OT as tolerated Will continue to follow. Subjective Date/time seen: 08/02/21 10:48 Overall, he states he seems to be feeling better; renal function better with IVFs; appetite okay and still having some issues with ambulation but continues to work with PT/OT as tolerated; still with some relative hypotension. Exam Narrative: General: ill appearing male in NAD Heart: normal S1 and S2; no rub Lungs: coarse and decreased at bases with occassional wheezes Abdomen: soft, nontender, nondistended, positive bowel sounds Extremities: no cyanosis or clubbing; no edema Skin: warm and intact Objective Data Vital Signs Vital Signs: Vital Signs Temp Pulse Resp BP Pulse Ox 08/02/21 09:46 36.7 C 65 20 90/43 L 97 08/02/21 09:45 36.7 C 68 19 96/83 L 97 08/02/21 08:12 63 18 08/02/21 08:06 62 18 94 08/02/21 08:00 36.7 C 65 18 114/44 L 97 08/02/21 05:52 95/57 L 08/02/21 05:48 101/47 L 08/02/21 05:45 36.8 C 67 20 131/75 94 08/02/21 02:31 65 18 08/02/21 02:22 63 18 08/01/21 22:00 36.5 C 61 18 131/58 L 97 08/01/21 20:27 62 20 08/01/21 20:17 58 L 20 97 08/01/21 14:09 59 L 20 08/01/21 14:00 36.9 C 56 L 16 120/48 L 100
--- NOTE | 2021-08-02 10:48 | PM.PNNEP ---
Progress Note: A&P Assessment and Plan (1) ROEL (acute kidney injury): Code(s): N17.9 - Acute kidney failure, unspecified Status: Acute Assessment and Plan: slow improvement noted possibly due to mild dehydration and relative hypotension (worsened by orthostasis) evaluation to date: renal ultrasound with left renal atrophy urine electrolytes are pre-renal CPK is okay urine eosinophils negative optimize hemodynamics/BP as tolerated hold diuretics/BP medications trial of gentle IVFs lokelma x 1 (on 08/02/21) for elevated K+ -- doing better follow repeat labs and UOP (2) Stage 3b chronic kidney disease: Code(s): N18.32 - Chronic kidney disease, stage 3b Status: Chronic Assessment and Plan: baseline creatinine runs ~ 1.9 - 2.1mg/dl felt to be secondary to diabetes, hypertension, vascular disease, and age based on outpatient evaluation (3) Acute exacerbation of chronic obstructive pulmonary disease: Code(s): J44.1 - Chronic obstructive pulmonary disease with (acute) exacerbation Status: Acute Assessment and Plan: on steroids, nebulizer treatments, and supplemental oxygen continue supportive therapy (4) Orthostatic hypotension: Code(s): I95.1 - Orthostatic hypotension Status: Acute Assessment and Plan: as noted by testing related to volume depletion versus autonomic dysfunction from his diabetes(?) urine electrolytes would support the former agree with holding BP medications cortisol low but he is on steroid therapy IVFs for now follow trend of hemodynamics (5) Diabetes: Code(s): E11.9 - Type 2 diabetes mellitus without complications Status: Chronic Assessment and Plan: follow accuchecks glycemic control (6) Weakness: Code(s): R53.1 - Weakness Status: Acute Assessment and Plan: suspect multifactorial - acute illness, COPD exacerbation, orthostatic hypotension...etc continue supportive therapy PT/OT as tolerated Will continue to follow. Subjective Date/time seen: 08/02/21 10:48 Overall, he states he seems to be feeling better; renal function better with IVFs; appetite okay and still having some issues with ambulation but continues to work with PT/OT as tolerated; still with some relative hypotension. Exam Narrative: General: ill appearing male in NAD Heart: normal S1 and S2; no rub Lungs: coarse and decreased at bases with occassional wheezes Abdomen: soft, nontender, nondistended, positive bowel sounds Extremities: no cyanosis or clubbing; no edema Skin: warm and intact Objective Data Vital Signs Vital Signs: Vital Signs Temp Pulse Resp BP Pulse Ox 08/02/21 09:46 36.7 C 65 20 90/43 L 97 08/02/21 09:45 36.7 C 68 19 96/83 L 97 08/02/21 08:12 63 18 08/02/21 08:06 62 18 94 08/02/21 08:00 36.7 C 65 18 114/44 L 97 08/02/21 05:52 95/57 L 08/02/21 05:48 101/47 L 08/02/21 05:45 36.8 C 67 20 131/75 94 08/02/21 02:31 65 18 08/02/21 02:22 63 18 08/01/21 22:00 36.5 C 61 18 131/58 L 97 08/01/21 20:27 62 20 08/01/21 20:17 58 L 20 97 08/01/21 14:09 59 L 20 08/01/21 14:00 36.9 C 56 L 16 120/48 L 100 Intake/Output Intake/Output: Intake & Output 07/30/21 07/31/21 08/01/21 08/02/21 23:59 23:59 23:59 23:59 Intake Total 19890 2040 1526 Output Total 1120 1400 850 600 Balance 106 208 9366 926 Meds/Results Medications: Active Medications Generic Name Dose Route Start Last Admin Trade Name Freq PRN Reason Stop Dose Admin Acetaminophen 650 mg 07/28/21 19:18 Acetaminophen 325 Mg Tablet PO Q6H PRN Mild Pain (1-3) or Fever Hydrocodone Bitart/Acetaminophen 2 tab 07/28/21 21:26 Hydrocodone/Acetaminophen (*Crx) 5-325 Mg Tablet PO Q6H PRN severe pain Albuterol 5 mg 07/28/21 20:00 08/02/21 08:03 Albuterol Sulfate N
[2021-08-02 11:59] LABS: Glucose Point of Care 233 mg/dl (65-105)
[2021-08-02] MEDS: INSULIN ASPART (*BKC) 100 UNITS/ML SUB-Q ×2 (12:22→17:19)
--- NOTE | 2021-08-02 13:49 | P.PNIM_ITS ---
Progress Note: A&P Assessment and Plan (1) Acute exacerbation of chronic obstructive pulmonary disease: Code(s): J44.1 - Chronic obstructive pulmonary disease with (acute) exacerbation Status: Acute Assessment and Plan: Presented with increased shortness of breath with audible wheezing * Had symptomatic improvement with IV Solu-Medrol. Has been weaned to prednisone 40 mg daily * Continue scheduled DuoNebs * Home Sergey is nonformulary. Transitioned to Trelegy during admission. * No change in sputum and no indication for antibiotics (2) Ziwpz-ce-gwosbvt kidney injury: Code(s): N17.9 - Acute kidney failure, unspecified; N18.9 - Chronic kidney disease, unspecified Status: Acute Assessment and Plan: History of CKD established with Nephrology with acute worsening and renal function. Baseline creatinine reported at 1.9-2.1 * Creatinine elevated up to 3.2, BUN 56 * May be due to hypoperfusion from hypotension * Renal ultrasound showed left renal atrophy new from most recent CT * Appreciate nephrology consultation * Hold furosemide. Avoid nephrotoxins. * Continue IV fluids. Monitor volume status closely to avoid fluid overload * Monitor renal function closely. Creatinine improved to 2.8 today (3) Orthostatic hypotension: Code(s): I95.1 - Orthostatic hypotension Status: Acute Assessment and Plan: Patient noted to have symptomatic orthostatic hypotension * Michael hopson * Fall precautions * AM cortisol is within normal limits * Hold amlodipine and carvedilol * Continue with hydration * Continue to monitor orthostatics q shift * Consider addition of meclizine if no improvement (4) Pre-syncope: Code(s): R55 - Syncope and collapse Status: Acute Assessment and Plan: 07/31: Vasovagal episode after straining to have a large bowel movement * No loss of consciousness * Patient being hydrated and monitoring blood pressure as above (5) Elevated troponin: Code(s): R77.8 - Other specified abnormalities of plasma proteins Status: Acute Assessment and Plan: Minimally elevated with peak at 0.044 * Patient is completely asymptomatic. * EKG reviewed without any ST abnormalities noted * May be related to his chronic kidney disease * No further intervention required at this time (6) Diabetes type 2, controlled: Code(s): E11.9 - Type 2 diabetes mellitus without complications Status: Acute Assessment and Plan: A1c 6.3. Blood sugars elevated above target while on IV steroids * Continue Accu-Cheks, low dose sliding scale insulin, hypoglycemic protocol * Continue home medications including pioglitazone, sitagliptin, glimepiride * Blood sugars have improved with discontinuation of IV steroids. * Glucose 85 this morning, therefore will discontinue Lantus and scheduled novolog. Continue low dose SSI. * Monitor glucose trends closely and adjust insulin as needed for glycemic control (7) Weakness: Code(s): R53.1 - Weakness Status: Acute Assessment and Plan: Complained of of weakness of bilateral lower extremities * Likely due to physical deconditioning. * Recently evaluated June 2021 for same complaint, at that time he had CT of the thoracic spine which showed no acute abnormalities * B12, folate, TSH within normal limits * Appreciate PT/OT evaluation (8) Electrolyte abnormality: Code(s): E87.8 - Other disorders of electrolyte and fluid balance, not elsewhere classified Status: Acute Ass
--- NOTE | 2021-08-02 13:49 | PM.IMPN ---
Progress Note: A&P Assessment and Plan (1) Acute exacerbation of chronic obstructive pulmonary disease: Code(s): J44.1 - Chronic obstructive pulmonary disease with (acute) exacerbation Status: Acute Assessment and Plan: Presented with increased shortness of breath with audible wheezing Had symptomatic improvement with IV Solu-Medrol. Has been weaned to prednisone 40 mg daily Continue scheduled DuoNebs Home Hai is nonformulary. Transitioned to Trelegy during admission. No change in sputum and no indication for antibiotics (2) Pvlsv-el-wdxciqo kidney injury: Code(s): N17.9 - Acute kidney failure, unspecified; N18.9 - Chronic kidney disease, unspecified Status: Acute Assessment and Plan: History of CKD established with Nephrology with acute worsening and renal function. Baseline creatinine reported at 1.9-2.1 Creatinine elevated up to 3.2, BUN 56 May be due to hypoperfusion from hypotension Renal ultrasound showed left renal atrophy new from most recent CT Appreciate nephrology consultation Hold furosemide. Avoid nephrotoxins. Continue IV fluids. Monitor volume status closely to avoid fluid overload Monitor renal function closely. Creatinine improved to 2.8 today (3) Orthostatic hypotension: Code(s): I95.1 - Orthostatic hypotension Status: Acute Assessment and Plan: Patient noted to have symptomatic orthostatic hypotension Michael hose Fall precautions AM cortisol is within normal limits Hold amlodipine and carvedilol Continue with hydration Continue to monitor orthostatics q shift Consider addition of meclizine if no improvement (4) Pre-syncope: Code(s): R55 - Syncope and collapse Status: Acute Assessment and Plan: 07/31: Vasovagal episode after straining to have a large bowel movement No loss of consciousness Patient being hydrated and monitoring blood pressure as above (5) Elevated troponin: Code(s): R77.8 - Other specified abnormalities of plasma proteins Status: Acute Assessment and Plan: Minimally elevated with peak at 0.044 Patient is completely asymptomatic. EKG reviewed without any ST abnormalities noted May be related to his chronic kidney disease No further intervention required at this time (6) Diabetes type 2, controlled: Code(s): E11.9 - Type 2 diabetes mellitus without complications Status: Acute Assessment and Plan: A1c 6.3. Blood sugars elevated above target while on IV steroids Continue Accu-Cheks, low dose sliding scale insulin, hypoglycemic protocol Continue home medications including pioglitazone, sitagliptin, glimepiride Blood sugars have improved with discontinuation of IV steroids. Glucose 85 this morning, therefore will discontinue Lantus and scheduled novolog. Continue low dose SSI. Monitor glucose trends closely and adjust insulin as needed for glycemic control (7) Weakness: Code(s): R53.1 - Weakness Status: Acute Assessment and Plan: Complained of of weakness of bilateral lower extremities Likely due to physical deconditioning. Recently evaluated June 2021 for same complaint, at that time he had CT of the thoracic spine which showed no acute abnormalities B12, folate, TSH within normal limits Appreciate PT/OT evaluation (8) Electrolyte abnormality: Code(s): E87.8 - Other disorders of electrolyte and fluid balance, not elsewhere classified Status: Acute Assessment and Plan: Likely due to acute kidney failure Hyperkalemia: Resolved after Lokelma. 4.9 today Hyponatremia: Improved with fluids. 131 today Continue to monitor BMP Subjective Date/time seen: 08/02/21 13:49 Interval history: Date of service: 08/02/2021 Miky Fuentes is a 81-year-old male with a history of COPD, CKD, CAD, type 2 diabetes mellitus, hypertension, hyperlipidemia, and dementia who is seen in follow-up
[2021-08-02 15:53] LABS: Glucose Point of Care 281 mg/dl (65-105)
[2021-08-02] MEDS: ROSUVASTATIN 10 MG TABLET 20 MG PO (20:28)
[2021-08-02] MEDS: ASPIRIN 81 MG CHEWABLE TABLET PO (20:28)
[2021-08-02 21:15] LABS: Glucose Point of Care 356 mg/dl (65-105)
[2021-08-03] VITALS (17 sets, daily range): BP systolic 107–152; BP diastolic 46–89; PULSE 56–88; RESP 16–20; TEMP 35.9–36.7; O2SAT 96–100
[2021-08-03] MEDS: IPRATROPIUM BR 0.02% INH SOLN 0.5 MG/2.5 ML VIAL INHALATION ×4 (02:10→20:07)
[2021-08-03] MEDS: ALBUTEROL SULFATE NEB 2.5 MG/0.5 ML INH 5 MG INHALATION ×4 (02:10→20:06)
[2021-08-03] MEDS: SODIUM CHLORIDE 0.9% IV 1,000 ML 75 ML IV CONT (03:51)
[2021-08-03 05:56] LABS: Hematocrit 27.2 % (42.0-52.0); Hemoglobin 8.6 g/dL (14.0-18.0); Mean Corpuscular HGB Conc 31.6 g/dl (32-36); Mean Corpuscular Hemoglobin 30.1 pg (26-34); Mean Corpuscular Volume 95.1 fl (80-100); Mean Platelet Volume 10.7 fl (7.4-10.4); Platelet Count Result 139 k/mm3 (150-375); Red Blood Count 2.86 M/mm3 (4.6-6.20); Red Cell Distribution Width 14.2 % (11.5-14.5); White Blood Count 5.9 K/mm3 (4.5-10.0)
[2021-08-03 06:11] LABS: Albumin Level 2.5 g/dL (3.5-5.1); Anion Gap 4 mmol/L (8-16); Blood Urea Nitrogen 54 mg/dL (9-20); Calcium 7.7 mg/dL (8.4-10.2); Carbon Dioxide 26 mmol/L (22-30); Chloride 101 mmol/L (98-107); Estimated CRCL calculation 24 ml/min; Estimated Glomerular Filt Rate 24; Glucose 244 mg/dL (65-110); Phosphorus 3.2 mg/dL (2.5-4.5); Potassium 4.8 mmol/L (3.4-5.0); Sodium 131 mmol/L (137-145)
[2021-08-03 07:12] LABS: Glucose Point of Care 226 mg/dl (65-105)
[2021-08-03] MEDS: FLUTICASONE/UMECLIDIN/VILANTER 100-62.5-25 MCG ELLIPTA 1 PUFF INHALATION (07:52)
[2021-08-03] MEDS: INSULIN ASPART (*BKC) 100 UNITS/ML SUB-Q ×6 (08:22→16:46)
[2021-08-03] MEDS: predniSONE 20 MG TABLET 40 MG PO (08:27)
[2021-08-03] MEDS: DONEPEZIL HCL 10 MG TABLET PO (08:27)
[2021-08-03] MEDS: GABAPENTIN 300 MG CAPSULE PO ×2 (08:27→16:45)
[2021-08-03] MEDS: DOCUSATE SODIUM 100 MG CAPSULE PO ×2 (08:28→21:11)
[2021-08-03] MEDS: PIOGLITAZONE HCL 30 MG TABLET PO (08:29)
[2021-08-03] MEDS: GLIMEPIRIDE 2 MG TABLET PO (08:29)
[2021-08-03] MEDS: FAMOTIDINE 20 MG TABLET PO ×2 (08:29→21:10)
[2021-08-03] MEDS: EZETIMIBE 5 MG TABLET PO (08:29)
[2021-08-03] MEDS: HEPARIN SODIUM 5,000 UNITS/ML VIAL 5000 UNITS SUB-Q ×2 (08:30→21:11)
[2021-08-03] MEDS: ALPRAZolam (*CRX) 0.5 MG TABLET PO (08:34)
--- NOTE | 2021-08-03 09:56 | P.PNNP_ITS ---
Progress Note: A&P Assessment and Plan (1) ROEL (acute kidney injury): Code(s): N17.9 - Acute kidney failure, unspecified Status: Acute Assessment and Plan: * acute kidney injury on ckd * possibly due to mild dehydration and relative hypotension (worsened by orthostasis) * evaluation to date: * renal ultrasound with left renal atrophy * urine electrolytes are pre-renal * CPK is okay * urine eosinophils negative * He is getting some IV fluids and is eating well. * Blood pressure ranging from 130-150 (2) Stage 3b chronic kidney disease: Code(s): N18.32 - Chronic kidney disease, stage 3b Status: Chronic Assessment and Plan: * baseline creatinine runs ~ 1.9 - 2.1mg/dl * felt to be secondary to diabetes, hypertension, vascular disease, and age based on outpatient evaluation (3) Acute exacerbation of chronic obstructive pulmonary disease: Code(s): J44.1 - Chronic obstructive pulmonary disease with (acute) exacerbation Status: Acute Assessment and Plan: * on steroids, nebulizer treatments, and supplemental oxygen * continue supportive therapy (4) Orthostatic hypotension: Code(s): I95.1 - Orthostatic hypotension Status: Acute Assessment and Plan: * blood pressure normal longer orthostatic today * related to volume depletion * agree with holding BP medications * cortisol low but he is on steroid therapy * IVFs for One more day and reassess tomorrow. * follow trend of hemodynamics (5) Diabetes: Code(s): E11.9 - Type 2 diabetes mellitus without complications Status: Chronic Assessment and Plan: * follow accuchecks * glycemic control (6) Weakness: Code(s): R53.1 - Weakness Status: Acute Assessment and Plan: * suspect multifactorial - acute illness, COPD exacerbation, orthostatic hypotension...etc * continue supportive therapy * PT/OT as tolerated Will continue to follow. Subjective Date/time seen: 08/03/21 09:56 Interval history: Patient is tired. He was up at 5 this morning. He is eating okay. Sitting up in a chair. Exam Narrative: General: Well-developed well-nourished male sitting up in a chair in no acute distress. Heart: normal S1 and S2; no rub or gallop Lungs: coarse and decreased at bases with occassional wheezes Abdomen: soft, nontender, nondistended, positive bowel sounds Extremities: no cyanosis or clubbing; no edema Skin: no rash Objective Data Vital Signs Vital Signs: Vital Signs - 24 hr 08/02/21 14:00 08/02/21 14:09 08/02/21 14:16 Temperature 36.4 C L Pulse Rate 67 67 67 Respiratory Rate 20 18 18 Blood Pressure 121/52 L Pulse Oximetry 98 08/02/21 20:00 08/02/21 20:48 08/02/21 20:49 Temperature 35.9 C L 35.9 C L Pulse Rate 63 66 69 Respiratory Rate 18 18 Blood Pressure 142/46 H 147/55 H 143/55 H Pulse Oximetry 98 97 98 08/02/21 21:28 08/02/21 21:29 08/02/21 21:35 Temperature 36.1 C L Pulse Rate 68 66 Respiratory Rate 16 18 Blood Pressure 130/57 L Pulse Oximetry 97 99 08/03/21 02:11 08/03/21 02:20 08/03/21 05:32 Temperature 36.4 C Pulse Rate 66 65 67 Respiratory Rate 16 16 18
--- NOTE | 2021-08-03 09:56 | PM.PNNEP ---
Progress Note: A&P Assessment and Plan (1) ROEL (acute kidney injury): Code(s): N17.9 - Acute kidney failure, unspecified Status: Acute Assessment and Plan: acute kidney injury on ckd possibly due to mild dehydration and relative hypotension (worsened by orthostasis) evaluation to date: renal ultrasound with left renal atrophy urine electrolytes are pre-renal CPK is okay urine eosinophils negative He is getting some IV fluids and is eating well. Blood pressure ranging from 130-150 (2) Stage 3b chronic kidney disease: Code(s): N18.32 - Chronic kidney disease, stage 3b Status: Chronic Assessment and Plan: baseline creatinine runs ~ 1.9 - 2.1mg/dl felt to be secondary to diabetes, hypertension, vascular disease, and age based on outpatient evaluation (3) Acute exacerbation of chronic obstructive pulmonary disease: Code(s): J44.1 - Chronic obstructive pulmonary disease with (acute) exacerbation Status: Acute Assessment and Plan: on steroids, nebulizer treatments, and supplemental oxygen continue supportive therapy (4) Orthostatic hypotension: Code(s): I95.1 - Orthostatic hypotension Status: Acute Assessment and Plan: blood pressure normal longer orthostatic today related to volume depletion agree with holding BP medications cortisol low but he is on steroid therapy IVFs for One more day and reassess tomorrow. follow trend of hemodynamics (5) Diabetes: Code(s): E11.9 - Type 2 diabetes mellitus without complications Status: Chronic Assessment and Plan: follow accuchecks glycemic control (6) Weakness: Code(s): R53.1 - Weakness Status: Acute Assessment and Plan: suspect multifactorial - acute illness, COPD exacerbation, orthostatic hypotension...etc continue supportive therapy PT/OT as tolerated Will continue to follow. Subjective Date/time seen: 08/03/21 09:56 Interval history: Patient is tired. He was up at 5 this morning. He is eating okay. Sitting up in a chair. Exam Narrative: General: Well-developed well-nourished male sitting up in a chair in no acute distress. Heart: normal S1 and S2; no rub or gallop Lungs: coarse and decreased at bases with occassional wheezes Abdomen: soft, nontender, nondistended, positive bowel sounds Extremities: no cyanosis or clubbing; no edema Skin: no rash Objective Data Vital Signs Vital Signs: Vital Signs - 24 hr 08/02/21 14:00 08/02/21 14:09 08/02/21 14:16 Temperature 36.4 C L Pulse Rate 67 67 67 Respiratory Rate 20 18 18 Blood Pressure 121/52 L Pulse Oximetry 98 08/02/21 20:00 08/02/21 20:48 08/02/21 20:49 Temperature 35.9 C L 35.9 C L Pulse Rate 63 66 69 Respiratory Rate 18 18 Blood Pressure 142/46 H 147/55 H 143/55 H Pulse Oximetry 98 97 98 08/02/21 21:28 08/02/21 21:29 08/02/21 21:35 Temperature 36.1 C L Pulse Rate 68 66 Respiratory Rate 16 18 Blood Pressure 130/57 L Pulse Oximetry 97 99 08/03/21 02:11 08/03/21 02:20 08/03/21 05:32 Temperature 36.4 C Pulse Rate 66 65 67 Respiratory Rate 16 16 18 Blood Pressure 140/46 L Pulse Oximetry 98 08/03/21 07:47 08/03/21 07:48 08/03/21 07:49 Temperature 36.7 C 36.7 C 36.7 C Pulse Rate 62 64 56 L Respiratory Rate 18 16 18 Blood Pressure 143/52 H 144/61 H 137/59 L Pulse Oximetry 99 98 98 08/03/21 07:53 08/03/21 08:02 Temperature Pulse Rate 60 62 Respiratory Rate 16 16 Blood Pressure Pulse Oximetry 96 Intake/Output Intake/Output: Intake & Output 07/31/21 08/01/21 08/02/21 08/03/21 23:59 23:59 23:59 23:59 Intake Total 1760 2040 3120 1558 Output Total 8861 547 5924 1400 Balance 360 1190 1620 158 Meds/Results Medications: Active Medications Generic Name Dose Route Start Last Admin Trade Name Freq PRN Reason Stop Dose Admin Acetaminophen 650 mg 07/28/21 19:18 Gary
[2021-08-03 12:09] LABS: Glucose Point of Care 285 mg/dl (65-105)
--- NOTE | 2021-08-03 14:03 | P.PNIM_ITS ---
Progress Note: A&P Assessment and Plan (1) Acute exacerbation of chronic obstructive pulmonary disease: Code(s): J44.1 - Chronic obstructive pulmonary disease with (acute) exacerbation Status: Acute Assessment and Plan: Presented with increased shortness of breath with audible wheezing * Had symptomatic improvement with IV Solu-Medrol. Has been weaned to prednisone 40 mg daily. #3 today * Continue scheduled DuoNebs * Home Brejordontri is nonformulary. Transitioned to Trelegy during admission. * No change in sputum and no indication for antibiotics (2) [id number] kidney injury: Code(s): N17.9 - Acute kidney failure, unspecified; N18.9 - Chronic kidney disease, unspecified Status: Acute Assessment and Plan: History of CKD established with Nephrology with acute worsening and renal function. Baseline creatinine reported at 1.9-2.1 * Creatinine elevated up to 3.2, BUN 56 * May be due to hypoperfusion from hypotension * Renal ultrasound showed left renal atrophy new from most recent CT * Appreciate nephrology consultation * Hold furosemide. Avoid nephrotoxins. * Renal function is improving closer to baseline. Will hold IV fluids at this point to avoid volume overload * Monitor renal function closely. Creatinine improved to 2.6 today (3) Orthostatic hypotension: Code(s): I95.1 - Orthostatic hypotension Status: Acute Assessment and Plan: Patient noted to have symptomatic orthostatic hypotension * Michael hopson * Fall precautions * Hold amlodipine and carvedilol * Continue to monitor orthostatics q shift. Negative this afternoon * Discontinue IV fluids given overall improvement (4) Elevated troponin: Code(s): R77.8 - Other specified abnormalities of plasma proteins Status: Acute Assessment and Plan: Minimally elevated with peak at 0.044 * Patient is completely asymptomatic. * EKG reviewed without any ST abnormalities noted * May be related to his chronic kidney disease * No further intervention required at this time (5) Diabetes type 2, controlled: Code(s): E11.9 - Type 2 diabetes mellitus without complications Status: Acute Assessment and Plan: A1c 6.3. Blood sugars elevated above target while on IV steroids * Continue Accu-Cheks, low dose sliding scale insulin, hypoglycemic protocol * Continue home medications including pioglitazone, sitagliptin, glimepiride * Lantus 12 units qHS, NovoLog scheduled with meals 5 units t.i.d.. * Monitor glucose trends closely and adjust insulin as needed for glycemic control (6) Weakness: Code(s): R53.1 - Weakness Status: Acute Assessment and Plan: Complained of of weakness of bilateral lower extremities * Likely due to physical deconditioning. * Recently evaluated June 2021 for same complaint, at that time he had CT of the thoracic spine which showed no acute abnormalities * B12, folate, TSH within normal limits * Appreciate PT/OT evaluation (7) Electrolyte abnormality: Code(s): E87.8 - Other disorders of electrolyte and fluid balance, not elsewhere classified Status: Acute Assessment and Plan: Likely due to acute kidney failure * Hyperkalemia: Resolved after Lokelma. 4.8 today * Hyponatremia: Improved with fluids. 131 today * Continue to monitor BMP Subjective Date/time seen: 08/03/21 14:03 Interval history: Date of service: 08/03/2021 Miky Fuentes is a 81-year-old male with a history of COPD, CKD, CAD, type 2 diabetes mellitu
--- NOTE | 2021-08-03 14:03 | PM.IMPN ---
Progress Note: A&P Assessment and Plan (1) Acute exacerbation of chronic obstructive pulmonary disease: Code(s): J44.1 - Chronic obstructive pulmonary disease with (acute) exacerbation Status: Acute Assessment and Plan: Presented with increased shortness of breath with audible wheezing Had symptomatic improvement with IV Solu-Medrol. Has been weaned to prednisone 40 mg daily. #3 today Continue scheduled DuoNebs Home Sergey is nonformulary. Transitioned to Trelegy during admission. No change in sputum and no indication for antibiotics (2) Nprlh-ht-rccfqmj kidney injury: Code(s): N17.9 - Acute kidney failure, unspecified; N18.9 - Chronic kidney disease, unspecified Status: Acute Assessment and Plan: History of CKD established with Nephrology with acute worsening and renal function. Baseline creatinine reported at 1.9-2.1 Creatinine elevated up to 3.2, BUN 56 May be due to hypoperfusion from hypotension Renal ultrasound showed left renal atrophy new from most recent CT Appreciate nephrology consultation Hold furosemide. Avoid nephrotoxins. Renal function is improving closer to baseline. Will hold IV fluids at this point to avoid volume overload Monitor renal function closely. Creatinine improved to 2.6 today (3) Orthostatic hypotension: Code(s): I95.1 - Orthostatic hypotension Status: Acute Assessment and Plan: Patient noted to have symptomatic orthostatic hypotension Michael hose Fall precautions Hold amlodipine and carvedilol Continue to monitor orthostatics q shift. Negative this afternoon Discontinue IV fluids given overall improvement (4) Elevated troponin: Code(s): R77.8 - Other specified abnormalities of plasma proteins Status: Acute Assessment and Plan: Minimally elevated with peak at 0.044 Patient is completely asymptomatic. EKG reviewed without any ST abnormalities noted May be related to his chronic kidney disease No further intervention required at this time (5) Diabetes type 2, controlled: Code(s): E11.9 - Type 2 diabetes mellitus without complications Status: Acute Assessment and Plan: A1c 6.3. Blood sugars elevated above target while on IV steroids Continue Accu-Cheks, low dose sliding scale insulin, hypoglycemic protocol Continue home medications including pioglitazone, sitagliptin, glimepiride Lantus 12 units qHS, NovoLog scheduled with meals 5 units t.i.d.. Monitor glucose trends closely and adjust insulin as needed for glycemic control (6) Weakness: Code(s): R53.1 - Weakness Status: Acute Assessment and Plan: Complained of of weakness of bilateral lower extremities Likely due to physical deconditioning. Recently evaluated June 2021 for same complaint, at that time he had CT of the thoracic spine which showed no acute abnormalities B12, folate, TSH within normal limits Appreciate PT/OT evaluation (7) Electrolyte abnormality: Code(s): E87.8 - Other disorders of electrolyte and fluid balance, not elsewhere classified Status: Acute Assessment and Plan: Likely due to acute kidney failure Hyperkalemia: Resolved after Lokelma. 4.8 today Hyponatremia: Improved with fluids. 131 today Continue to monitor BMP Subjective Date/time seen: 08/03/21 14:03 Interval history: Date of service: 08/03/2021 Miky Fuentes is a 81-year-old male with a history of COPD, CKD, CAD, type 2 diabetes mellitus, hypertension, hyperlipidemia, and dementia who is seen in follow-up for COPD exacerbation. He is feeling better today. He denies dizziness or lightheadedness at this time. He has been able to get up and get around better today. He states he is wanting to go for a walk and move around more. He denies shortness of breath. No wheezing, no cough, no chest pain, no palpitations. Denies nausea, vomiting, fever, chills. Appetite is good.
[2021-08-03 16:29] LABS: Glucose Point of Care 335 mg/dl (65-105)
[2021-08-03 20:46] LABS: Glucose Point of Care 257 mg/dl (65-105)
[2021-08-03] MEDS: ASPIRIN 81 MG CHEWABLE TABLET PO (21:10)
[2021-08-03] MEDS: ROSUVASTATIN 10 MG TABLET 20 MG PO (21:10)
[2021-08-03] MEDS: INSULIN GLARGINE (*BKC) 100 UNITS/ML 12 UNITS SUB-Q (21:11)
[2021-08-04] VITALS (9 sets, daily range): BP systolic 131–149; BP diastolic 59–86; PULSE 59–66; RESP 16–20; TEMP 36.2–36.9; O2SAT 96–98
[2021-08-04] MEDS: ALBUTEROL SULFATE NEB 2.5 MG/0.5 ML INH 5 MG INHALATION ×2 (02:28→07:48)
[2021-08-04] MEDS: IPRATROPIUM BR 0.02% INH SOLN 0.5 MG/2.5 ML VIAL INHALATION ×2 (02:28→07:48)
[2021-08-04 06:12] LABS: Hematocrit 27.8 % (42.0-52.0); Hemoglobin 8.4 g/dL (14.0-18.0); Mean Corpuscular HGB Conc 30.2 g/dl (32-36); Mean Corpuscular Hemoglobin 30.7 pg (26-34); Mean Corpuscular Volume 101.5 fl (80-100); Mean Platelet Volume 10.6 fl (7.4-10.4); Platelet Count Result 156 k/mm3 (150-375); Red Blood Count 2.74 M/mm3 (4.6-6.20); Red Cell Distribution Width 14.6 % (11.5-14.5); White Blood Count 7.1 K/mm3 (4.5-10.0)
[2021-08-04 06:23] LABS: Albumin Level 2.3 g/dL (3.5-5.1); Anion Gap 2 mmol/L (8-16); Blood Urea Nitrogen 54 mg/dL (9-20); Calcium 7.9 mg/dL (8.4-10.2); Carbon Dioxide 26 mmol/L (22-30); Chloride 104 mmol/L (98-107); Estimated CRCL calculation 28 ml/min; Estimated Glomerular Filt Rate 29; Glucose 106 mg/dL (65-110); Phosphorus 3.1 mg/dL (2.5-4.5); Potassium 4.8 mmol/L (3.4-5.0); Sodium 132 mmol/L (137-145)
[2021-08-04 07:42] LABS: Glucose Point of Care 80 mg/dl (65-105)
[2021-08-04] MEDS: FLUTICASONE/UMECLIDIN/VILANTER 100-62.5-25 MCG ELLIPTA 1 PUFF INHALATION (07:48)
[2021-08-04] MEDS: INSULIN ASPART (*BKC) 100 UNITS/ML SUB-Q ×2 (08:24→12:18)
[2021-08-04] MEDS: ALPRAZolam (*CRX) 0.5 MG TABLET PO (08:28)
[2021-08-04] MEDS: GABAPENTIN 300 MG CAPSULE PO (08:29)
[2021-08-04] MEDS: PIOGLITAZONE HCL 30 MG TABLET PO (08:29)
[2021-08-04] MEDS: DONEPEZIL HCL 10 MG TABLET PO (08:29)
[2021-08-04] MEDS: DOCUSATE SODIUM 100 MG CAPSULE PO (08:29)
[2021-08-04] MEDS: EZETIMIBE 5 MG TABLET PO (08:29)
[2021-08-04] MEDS: GLIMEPIRIDE 2 MG TABLET PO (08:29)
[2021-08-04] MEDS: predniSONE 20 MG TABLET 40 MG PO (08:29)
[2021-08-04] MEDS: FAMOTIDINE 20 MG TABLET PO (08:29)
[2021-08-04] MEDS: HEPARIN SODIUM 5,000 UNITS/ML VIAL 5000 UNITS SUB-Q (08:30)
--- NOTE | 2021-08-04 09:23 | P.PNNP_ITS ---
Progress Note: A&P Assessment and Plan (1) ROEL (acute kidney injury): Code(s): N17.9 - Acute kidney failure, unspecified Status: Acute Assessment and Plan: * acute kidney injury on ckd * possibly due to mild dehydration and relative hypotension (worsened by orthostasis) * evaluation to date: * renal ultrasound with left renal atrophy * urine electrolytes are pre-renal * CPK is okay * urine eosinophils negative * He is eating well. He is off IV fluids. * Blood pressure ranging from 130-150 * Creatinine is down to 2.2 today. This is close to his baseline. (2) Stage 3b chronic kidney disease: Code(s): N18.32 - Chronic kidney disease, stage 3b Status: Chronic Assessment and Plan: * baseline creatinine runs ~ 1.9 - 2.1mg/dl * felt to be secondary to diabetes, hypertension, vascular disease, and age based on outpatient evaluation (3) Acute exacerbation of chronic obstructive pulmonary disease: Code(s): J44.1 - Chronic obstructive pulmonary disease with (acute) exacerbation Status: Acute Assessment and Plan: * on steroids, nebulizer treatments, and supplemental oxygen * continue supportive therapy (4) Orthostatic hypotension: Code(s): I95.1 - Orthostatic hypotension Status: Acute Assessment and Plan: * blood pressure Dropped a little bit from 149-131. * Will leave blood pressure meds alone. (5) Diabetes: Code(s): E11.9 - Type 2 diabetes mellitus without complications Status: Chronic Assessment and Plan: * follow accuchecks * glycemic control (6) Weakness: Code(s): R53.1 - Weakness Status: Acute Assessment and Plan: * suspect multifactorial - acute illness, COPD exacerbation, orthostatic hypotension...etc * continue supportive therapy * PT/OT as tolerated Will continue to follow. Subjective Date/time seen: 08/04/21 09:23 Interval history: Patient is sitting up in a chair. He feels okay. No chest pain or shortness of breath. Exam Narrative: General: Well-developed well-nourished male sitting up in a chair in no acute distress. Heart: normal S1 and S2; no rub Lungs: mildly coarse at the bases Abdomen: soft, nontender, nondistended, positive bowel sounds Extremities: no cyanosis or clubbing; no edema Skin: no rash or subcu nodules Objective Data Vital Signs Vital Signs: Vital Signs - 24 hr 08/03/21 13:57 08/03/21 14:00 08/03/21 14:04 Temperature 35.9 C L Pulse Rate 61 88 59 L Respiratory Rate 16 20 16 Blood Pressure 138/52 L Pulse Oximetry 100 08/03/21 19:54 08/03/21 19:55 08/03/21 19:56 Temperature 36.5 C Pulse Rate 66 70 77 Respiratory Rate 18 19 18 Blood Pressure 136/55 L 130/58 L 107/89 Pulse Oximetry 98 99 100 08/03/21 20:08 08/03/21 20:18 08/03/21 21:32 Temperature 36.6 C Pulse Rate 68 68 66 Respiratory Rate 18 18 18 Blood Pressure 152/59 H Pulse Oximetry 97 100 08/04/21 02:23 08/04/21 02:33 08/04/21 05:16 Temperature 36.2 C L Pulse Rate 66 66 61 Respiratory Rate 18 18 18 Blood Pressure 144/59 H Pulse Oximetry 98 08/04/21 07:51
--- NOTE | 2021-08-04 09:23 | PM.PNNEP ---
Progress Note: A&P Assessment and Plan (1) ROEL (acute kidney injury): Code(s): N17.9 - Acute kidney failure, unspecified Status: Acute Assessment and Plan: acute kidney injury on ckd possibly due to mild dehydration and relative hypotension (worsened by orthostasis) evaluation to date: renal ultrasound with left renal atrophy urine electrolytes are pre-renal CPK is okay urine eosinophils negative He is eating well. He is off IV fluids. Blood pressure ranging from 130-150 Creatinine is down to 2.2 today. This is close to his baseline. (2) Stage 3b chronic kidney disease: Code(s): N18.32 - Chronic kidney disease, stage 3b Status: Chronic Assessment and Plan: baseline creatinine runs ~ 1.9 - 2.1mg/dl felt to be secondary to diabetes, hypertension, vascular disease, and age based on outpatient evaluation (3) Acute exacerbation of chronic obstructive pulmonary disease: Code(s): J44.1 - Chronic obstructive pulmonary disease with (acute) exacerbation Status: Acute Assessment and Plan: on steroids, nebulizer treatments, and supplemental oxygen continue supportive therapy (4) Orthostatic hypotension: Code(s): I95.1 - Orthostatic hypotension Status: Acute Assessment and Plan: blood pressure Dropped a little bit from 149-131. Will leave blood pressure meds alone. (5) Diabetes: Code(s): E11.9 - Type 2 diabetes mellitus without complications Status: Chronic Assessment and Plan: follow accuchecks glycemic control (6) Weakness: Code(s): R53.1 - Weakness Status: Acute Assessment and Plan: suspect multifactorial - acute illness, COPD exacerbation, orthostatic hypotension...etc continue supportive therapy PT/OT as tolerated Will continue to follow. Subjective Date/time seen: 08/04/21 09:23 Interval history: Patient is sitting up in a chair. He feels okay. No chest pain or shortness of breath. Exam Narrative: General: Well-developed well-nourished male sitting up in a chair in no acute distress. Heart: normal S1 and S2; no rub Lungs: mildly coarse at the bases Abdomen: soft, nontender, nondistended, positive bowel sounds Extremities: no cyanosis or clubbing; no edema Skin: no rash or subcu nodules Objective Data Vital Signs Vital Signs: Vital Signs - 24 hr 08/03/21 13:57 08/03/21 14:00 08/03/21 14:04 Temperature 35.9 C L Pulse Rate 61 88 59 L Respiratory Rate 16 20 16 Blood Pressure 138/52 L Pulse Oximetry 100 08/03/21 19:54 08/03/21 19:55 08/03/21 19:56 Temperature 36.5 C Pulse Rate 66 70 77 Respiratory Rate 18 19 18 Blood Pressure 136/55 L 130/58 L 107/89 Pulse Oximetry 98 99 100 08/03/21 20:08 08/03/21 20:18 08/03/21 21:32 Temperature 36.6 C Pulse Rate 68 68 66 Respiratory Rate 18 18 18 Blood Pressure 152/59 H Pulse Oximetry 97 100 08/04/21 02:23 08/04/21 02:33 08/04/21 05:16 Temperature 36.2 C L Pulse Rate 66 66 61 Respiratory Rate 18 18 18 Blood Pressure 144/59 H Pulse Oximetry 98 08/04/21 07:51 08/04/21 08:00 08/04/21 08:02 Temperature 36.9 C Pulse Rate 60 62 59 L Respiratory Rate 18 16 18 Blood Pressure 143/62 H Pulse Oximetry 98 08/04/21 08:03 08/04/21 08:30 08/04/21 08:31 Temperature 36.9 C 36.9 C Pulse Rate 59 L 66 64 Respiratory Rate 18 18 20 Blood Pressure 149/86 H 131/79 Pulse Oximetry 96 97 98 Intake/Output Intake/Output: Intake & Output 08/01/21 08/02/21 08/03/21 08/04/21 23:59 23:59 23:59 23:59 Intake Total 2040 3120 2346 478 Output Total 850 1500 2050 1500 Balance 1190 1620 296 -1022 Meds/Results Medications: Active Medications Generic Name Dose Route Start Last Admin Trade Name Freq PRN Reason Stop Dose Admin Acetaminophen 650 mg 07/28/21 19:18 Acetaminophen 325 Mg Tablet PO Q6H PRN Mild Pain (1-3) or Fever Hydr
--- NOTE | 2021-08-04 10:24 | P.DS_ITS ---
DS: Admitting Diagnosis Discharge Date 08/04/2021 Admitting Diagnosis COPD exacerbation DS: Discharge Diagnosis Discharge Diagnosis (1) Acute exacerbation of chronic obstructive pulmonary disease: Code(s): J44.1 - Chronic obstructive pulmonary disease with (acute) exacerbation Status: Acute Assessment and Plan: Presented with increased shortness of breath with audible wheezing * Symptomatic improvement following IV Solu-Medrol * Weaned to prednisone which she will continue to complete 5 days * Continue bronchodilators and home maintenance inhalers * No indication for antibiotics (2) Qaefa-gu-rwscffe kidney injury: Code(s): N17.9 - Acute kidney failure, unspecified; N18.9 - Chronic kidney disease, unspecified Status: Acute Assessment and Plan: History of CKD established with Nephrology with acute worsening of renal function. Baseline creatinine reported at 1.9-2.1 * Creatinine increased up to 3.2, BUN 56 during admission * Most likely due to hypoperfusion from hypotension * Renal ultrasound showed left renal atrophy new from most recent CT * He was seen in consultation by nephrology * Furosemide was held due to ROEL but was resumed prior to discharge for volume management * Renal function returned back to baseline. Creatinine 2.2 at time of discharge * Repeat BMP in 1 week and follow-up with his fitness teacher, Dr. Gregg (3) Orthostatic hypotension: Code(s): I95.1 - Orthostatic hypotension Status: Acute Assessment and Plan: Patient noted to have symptomatic orthostatic hypotension * Blood pressures improved with IV fluid rehydration * Continue Michael hose * Fall precautions implemented during admission and discussed with patient prior to discharge * Amlodipine and carvedilol held * Continue to monitor blood pressures at home and follow-up with PCP for blood pressure check in 1 week (4) Elevated troponin: Code(s): R77.8 - Other specified abnormalities of plasma proteins Status: Acute Assessment and Plan: Minimally elevated with peak at 0.044 * Patient remained asymptomatic. * EKG reviewed without any ST abnormalities noted * Most likely related to his chronic kidney disease * No further intervention required (5) Diabetes type 2, controlled: Code(s): E11.9 - Type 2 diabetes mellitus without complications Status: Acute Assessment and Plan: A1c 6.3. Blood sugars or elevated above target while on IV steroids * Managed during admission with Accu-Cheks, sliding scale insulin, hypoglycemic protocol, long-acting insulin * Continue home medications including pioglitazone, sitagliptin, glimepiride * Monitor glucose at home (6) Weakness: Code(s): R53.1 - Weakness Status: Acute Assessment and Plan: Complained of of weakness of bilateral lower extremities * Likely due to physical deconditioning. * Recently evaluated June 2021 for same complaint, at that time he had CT of the thoracic spine which showed no acute abnormalities * B12, folate, TSH within normal limits * Participated in PT/OT. He had symptomatic improvement during admission. Will continue with home health services on discharge (7) Electrolyte abnormality: Code(s): E87.8 - Other disorders of electrolyte and fluid balance, not elsewhere classified Status: Acute Assessment and Plan: Likely due to acute kidney failure * Hyperkalemia: Resolved after Lokelma. 4.8 at time of discharge * Hyponatremia: Improved with fluids. 132 at discharge *
--- NOTE | 2021-08-04 10:24 | PM.DS ---
DS: Admitting Diagnosis Discharge Date 08/04/2021 Admitting Diagnosis COPD exacerbation DS: Discharge Diagnosis Discharge Diagnosis (1) Acute exacerbation of chronic obstructive pulmonary disease: Code(s): J44.1 - Chronic obstructive pulmonary disease with (acute) exacerbation Status: Acute Assessment and Plan: Presented with increased shortness of breath with audible wheezing Symptomatic improvement following IV Solu-Medrol Weaned to prednisone which she will continue to complete 5 days Continue bronchodilators and home maintenance inhalers No indication for antibiotics (2) Paeyd-ql-ssavwzc kidney injury: Code(s): N17.9 - Acute kidney failure, unspecified; N18.9 - Chronic kidney disease, unspecified Status: Acute Assessment and Plan: History of CKD established with Nephrology with acute worsening of renal function. Baseline creatinine reported at 1.9-2.1 Creatinine increased up to 3.2, BUN 56 during admission Most likely due to hypoperfusion from hypotension Renal ultrasound showed left renal atrophy new from most recent CT He was seen in consultation by nephrology Furosemide was held due to ROEL but was resumed prior to discharge for volume management Renal function returned back to baseline. Creatinine 2.2 at time of discharge Repeat BMP in 1 week and follow-up with his hospice clinical supervisor, Dr. Gregg (3) Orthostatic hypotension: Code(s): I95.1 - Orthostatic hypotension Status: Acute Assessment and Plan: Patient noted to have symptomatic orthostatic hypotension Blood pressures improved with IV fluid rehydration Continue Michael hose Fall precautions implemented during admission and discussed with patient prior to discharge Amlodipine and carvedilol held Continue to monitor blood pressures at home and follow-up with PCP for blood pressure check in 1 week (4) Elevated troponin: Code(s): R77.8 - Other specified abnormalities of plasma proteins Status: Acute Assessment and Plan: Minimally elevated with peak at 0.044 Patient remained asymptomatic. EKG reviewed without any ST abnormalities noted Most likely related to his chronic kidney disease No further intervention required (5) Diabetes type 2, controlled: Code(s): E11.9 - Type 2 diabetes mellitus without complications Status: Acute Assessment and Plan: A1c 6.3. Blood sugars or elevated above target while on IV steroids Managed during admission with Accu-Cheks, sliding scale insulin, hypoglycemic protocol, long-acting insulin Continue home medications including pioglitazone, sitagliptin, glimepiride Monitor glucose at home (6) Weakness: Code(s): R53.1 - Weakness Status: Acute Assessment and Plan: Complained of of weakness of bilateral lower extremities Likely due to physical deconditioning. Recently evaluated June 2021 for same complaint, at that time he had CT of the thoracic spine which showed no acute abnormalities B12, folate, TSH within normal limits Participated in PT/OT. He had symptomatic improvement during admission. Will continue with home health services on discharge (7) Electrolyte abnormality: Code(s): E87.8 - Other disorders of electrolyte and fluid balance, not elsewhere classified Status: Acute Assessment and Plan: Likely due to acute kidney failure Hyperkalemia: Resolved after Lokelma. 4.8 at time of discharge Hyponatremia: Improved with fluids. 132 at discharge Repeat BMP in 1 week DS: Summary Hospital Course Hospital Course: Date of admission: 07/28/2021 Date of discharge: 08/03/2021 Miky Fuentes is a 81-year-old male with a history of COPD, CKD, CAD, type 2 diabetes mellitus, hypertension, hyperlipidemia, and dementia who presented to the emergency department 07/28/2021 with complaints of shortness of breath worsened with exertion. He was admitted to the hospitalist ser
[2021-08-04 12:05] LABS: Glucose Point of Care 141 mg/dl (65-105)
[2021-08-04 14:33] LABS: Chloride Rand Ur <20 mmol/L (32-290); Creatinine Random Urine 34 mg/dL (20-320)
== END 2021-08-04 13:05 | disposition home health service (06) | DRG 191 ==
LOC: ANHED 17:30 → ANHIMU 18:55 → ANH3MEDSUR 07-30 00:54 → ANHIMU 08-05 15:46
PROVIDERS: Emergency Medicine; Internal Medicine Nephrology; Nurse Practitioner Adult Health; Physician Assistant; Admitting Provider Internal Medicine; Emergency Provider Emergency Medicine; PCP Family Medicine; Visit Provider Family Medicine
DX: J44.1 Chronic obstructive pulmonary disease with (acute) exacerbation (principal); N17.9 Acute kidney failure, unspecified; E87.1 Hypo-osmolality and hyponatremia; I12.9 Hypertensive chronic kidney disease with stage 1 through stage 4 chronic kidney disease, or unspecified chronic kidney disease; E11.22 Type 2 diabetes mellitus with diabetic chronic kidney disease; I95.1 Orthostatic hypotension; N18.32 Chronic kidney disease, stage 3b; R77.8 Other specified abnormalities of plasma proteins; E87.5 Hyperkalemia; I25.10 Atherosclerotic heart disease of native coronary artery without angina pectoris; E78.5 Hyperlipidemia, unspecified; R53.1 Weakness; F03.90 Unspecified dementia, unspecified severity, without behavioral disturbance, psychotic disturbance, mood disturbance, and anxiety; K21.9 Gastro-esophageal reflux disease without esophagitis; E86.0 Dehydration; F17.210 Nicotine dependence, cigarettes, uncomplicated; M54.9 Dorsalgia, unspecified; M54.42 Lumbago with sciatica, left side; M54.41 Lumbago with sciatica, right side; S00.81XA Abrasion of other part of head, initial encounter; W19.XXXA Unspecified fall, initial encounter; Z95.1 Presence of aortocoronary bypass graft
CPT/HCPCS: 36415; 36600; 71045; 76775; 80048; 80053; 80069; 81001; 81050; 82375; 82436; 82533; 82550; 82570; 82607; 82746; 82805; 82948; 83036; 83050; 83735; 83880; 84100; 84156; 84300; 84439; 84443; 84480; 84484; 85025; 85027; 85055; 85610; 85730; 85999; 93005; 94640; 96372; 96374; 96376; 97110; 97161; 97165; 97530; 97535; 99285; A9270; G0378; J1644; J1815; J2405; J2920; J2930; J7030; J7050; J7512

== ENCOUNTER 2021-08-12 10:36 | Outpatient (NON) | payer MEDICARE, MEDICAID, SELFPAY ==
[2021-08-12 12:56] LABS: Anion Gap 2 mmol/L (8-16); Blood Urea Nitrogen 24 mg/dL (9-20); Calcium 7.8 mg/dL (8.4-10.2); Carbon Dioxide 24 mmol/L (22-30); Chloride 107 mmol/L (98-107); Estimated Glomerular Filt Rate 32; Glucose 140 mg/dL (65-110); Potassium 4.2 mmol/L (3.4-5.0); Sodium 133 mmol/L (137-145)
== END 2021-08-12 10:37 | disposition home or self-care (01) ==
LOC: ANHLAB 10:42 → HOME HLTH 10:43
PROVIDERS: PCP Family Medicine; Visit Provider Family Medicine
DX: J44.1 Chronic obstructive pulmonary disease with (acute) exacerbation (principal); M54.41 Lumbago with sciatica, right side; M54.42 Lumbago with sciatica, left side; I25.10 Atherosclerotic heart disease of native coronary artery without angina pectoris
CPT/HCPCS: 80048

== ENCOUNTER 2021-09-14 18:09 | Inpatient (IN) | payer MEDICARE, MEDICAID, SELFPAY ==
[2021-09-14] VITALS (25 sets, daily range): BP systolic 108–158; BP diastolic 54–67; PULSE 62–77; RESP 15–28; TEMP 37.1–38.1; O2SAT 96–100; BMI 27.6
--- NOTE | ~2021-09-14 | XR_ITS ---
EXAMINATION: XR chest 1V portable Exam Date/Time: 09/14/2021 18:30 CDT HISTORY: cough/fever/WEAKNESS,LUQ PAIN,COPD,HTN Comparison: 07/28/2021. RESULT: Lines, tubes, and devices: Multiple fractured median sternotomy wires to remain stable in position. Mediastinal surgical clips. Lungs and pleura: Clear. Cardiomediastinal silhouette: Stable cardiomediastinal silhouette. Other: No acute osseous or upper abdominal finding. IMPRESSION: No acute cardiopulmonary process. Reviewed, dictated and finalized at location K.
--- NOTE | ~2021-09-14 | CT_ITS ---
EXAMINATION: CT brain wo con DATE: 09/14/2021 18:45 INDICATION: L sided weakness . TECHNIQUE: Computed tomography (CT) of the head was performed without intravenous contrast. The mA wa s adjusted according to patient size. Iterative reconstruction technique was employed. The dose-lengt h product was 605.33 mGy-cm. COMPARISON: None FINDINGS: No acute intracranial hemorrhage or extra-axial fluid collection. No hydrocephalus, mass, or herniation. No acute ischemic infarct. Unremarkable dural venous sinus attenuation. No acute osseous abnormality. The aerated spaces are clear. Moderate atrophy. Mild chronic white matter change. Atherosclerotic intracranial calcifications. IMPRESSION: No acute intracranial process. Reviewed, dictated and finalized at location K.
--- NOTE | ~2021-09-14 | CT_ITS ---
EXAMINATION: CT abdomen pelvis wo con DATE: 09/14/2021 18:44 INDICATION: L sided abd pain TECHNIQUE: Computed tomography (CT) of the abdomen and pelvis was performed without intravenous contr ast. Automated exposure control and iterative reconstruction technique were employed. The dose-length product was 807.06 mGy-cm. COMPARISON: 07/17/2018. FINDINGS: Lower thorax: Clear lung bases. Coronary artery and aortic valve calcification. Liver: Normal. Biliary/Gallbladder: Gallbladder is normal. No bile duct dilation. Pancreas: No mass or duct dilation. Spleen: Normal. Adrenals:Right adrenal myelolipoma. Kidneys: Left renal atrophy. Multiple left hypodensities, too small to characterize but may represent cysts. Moderate bilateral perinephric stranding. GI tract: No small or large bowel dilation. Appendix not visualized. Irregular rectal wall thickening , slightly more apparent than the prior study, with surrounding edema/inflammatory change which is ne w. Mesentery/Peritoneum: No ascites, mass, or free air. Retroperitoneum: No mass. Atherosclerotic aortic calcifications. Saccular infrarenal abdominal aortic aneurysm, measuring up to 3.5 cm in greatest AP dimension. Pelvis: Fatty infiltration of the bladder wall with mild surrounding inflammatory change. Soft Tissues: Soft tissues and body wall unremarkable. Bones: No acute osseous finding. IMPRESSION: Chronic cystitis. Rectal wall thickening and inflammation as can be seen with proctitis. Consider out patient referral for proctoscopy/sigmoidoscopy to exclude rectal mass. 3.5 cm infrarenal abdominal ao rtic aneurysm, recommend ultrasound aorta in 2-3 years to assess for size change. Reviewed, dictated and finalized at location K. IMPRESSION: Chronic cystitis. Rectal wall thickening and inflammation as can be seen with p roctitis. Consider outpatient referral for proctoscopy/sigmoidoscopy to exclude rectal mass. 3.5 cm infrarenal abdominal aortic aneurysm, recommend ultrasound aorta in 2-3 years to assess for size change.
--- NOTE | ~2021-09-14 | CT_ITS ---
EXAMINATION: CT lumbar spine wo con DATE: 09/17/2021 18:37 INDICATION: Lower extremity weakness . TECHNIQUE: Computed tomography (CT) of the thoracic spine was performed without intravenous contrast. Automated exposure control and iterative reconstruction technique were employed. The dose-length pro duct was 1211.03 mGy-cm. COMPARISON: CT abdomen pelvis 09/14/2021. FINDINGS: 5 nonrib-bearing lumbar-type vertebral bodies. Hypoplastic ribs at T12. Pedicles intact. 6 mm anterolisthesis of L4 on L5. Vertebral body heights preserved. Multilevel moderate and severe disc space narrowing with marginal osteophytosis and vacuum phenomenon at all lumbar levels. Multilevel s clerosis and hypertrophy and interspinous narrowing in the lower lumbar spine. Severe bilateral neura l foraminal narrowing at L4-5 and L5-S1. Moderate central canal narrowing at L4-5. Severe central can al narrowing at L5-S1. No fracture or traumatic malalignment. IMPRESSION: 1. Grade 1 anterolisthesis of L4 on L5, which in combination with degenerative disc changes and facet arthropathy causes severe central canal narrowing. 2. Bilateral severe neural foraminal narrowing at L4-5 and L5-S1. 3. Severe degenerative disc disease at all lumbar levels. 4. Severe facet arthropathy in the lower lumbar spine. Reviewed, dictated and finalized at location K.
--- NOTE | 2021-09-14 18:12 | ECG_ITS ---
Measurements Intervals [place] Rate: 76 P: 62 IN: 224 QRS: -18 QRSD: 120 T: 73 QT: 416 QTc: 468 Interpretive Statements SINUS RHYTHM WITH FIRST DEGREE AV BLOCK POSSIBLE ANTERIOR MYOCARDIAL INFARCTION , OF INDETERMINATE AGE [30 ms Q WAVE IN V3/V4, OR R < 0.2 mV IN V4] RULE OUT INFERIOR INFARCTION ABNORMAL ECG COMPARED TO ECG 07/28/2021 15:35:10 SINUS RHYTHM NOW PRESENT FIRST DEGREE AV BLOCK NOW PRESENT Electronically Signed On 09-15-2021 11:02:09 CDT by Romulo Fernandez M.D.
--- NOTE | 2021-09-14 18:30 | ED.SOB ---
HPI - SOB/Dyspnea General Chief Complaint: Shortness of Breath/Dyspnea Stated Complaint: dyspnea/fever Source: RN notes reviewed History of Present Illness HPI Narrative: Patient presents emergency department from home via EMS for weakness. Patient states has been generally weak for the past 1 week with difficulty ambulating he states that today was associated with shortness of breath as well as pain in his left upper quadrant states that abdominal pain was described as aching in nature but is improved at this time states that shortness of breath is mildly improved as well he states he has been generally weak states his left leg does not work so he wants to 2 but this has been ongoing since his last admission in the hospital 1 month ago she did develop a fever today he denies any chest pain vomiting diarrhea or any other symptoms Related Data Home Medications Medication Instructions Recorded Confirmed alprazolam 0.5 mg tablet 0.5 mg PO DAILY 10/11/19 07/28/21 amlodipine 5 mg tablet 5 mg PO DAILY 10/11/19 07/28/21 carvedilol 12.5 mg tablet 12.5 mg PO BID 10/11/19 07/28/21 cyclobenzaprine 10 mg tablet 10 mg PO HS 10/11/19 07/28/21 donepezil 10 mg tablet 10 mg PO DAILY 10/11/19 07/28/21 ezetimibe 10 mg tablet 5 mg PO DAILY 10/11/19 07/28/21 famotidine 20 mg tablet 20 mg PO BID 10/11/19 07/28/21 furosemide 20 mg tablet 20 mg PO DAILY 10/11/19 07/28/21 gabapentin 300 mg capsule 300 mg PO BID 10/11/19 07/28/21 glimepiride 4 mg tablet 2 mg PO DAILY 10/11/19 07/28/21 pioglitazone 30 mg tablet 30 mg PO DAILY 10/11/19 07/28/21 rosuvastatin 40 mg tablet 20 mg PO HS 10/11/19 07/28/21 sitagliptin 100 mg tablet (Januvia) 100 mg PO DAILY 10/11/19 07/28/21 glipizide 2.5 mg tablet, extended 10 mg PO DAILY 11/22/19 07/28/21 release 24 hr albuterol sulfate 2.5 mg/3 mL 2.5 mg inhalation BID 07/28/21 07/28/21 (0.083 %) solution for nebulization aspirin 81 mg tablet 81 mg PO HS 07/28/21 07/28/21 budesonide 160 mcg-glycopyr 9 2 inh inhalation BID 07/28/21 07/28/21 mcg-formot 4.8 mcg/actuation HFA inhaler (Breztri Aerosphere) hydrocodone 5 mg-acetaminophen 325 2 tablet PO Q6H PRN pain 07/28/21 07/28/21 mg tablet Allergies Allergy/AdvReac Type Severity Reaction Status Date / Time morphine Allergy Intermediate Itching Verified 07/28/21 15:42 Penicillins Allergy Mild Unknown Verified 07/28/21 15:42 Review of Systems Review of Systems: Gen.: Reports fever Eyes: Denies eye pain or visual change ENT: Denies congestion Respiratory: Reports shortness of breath denies cough CV: Denies chest pain or palpitations GI: Reports left upper quadrant abdominal pain denies nausea vomiting or diarrhea denies burning, urgency, frequency or hematuria Musculoskeletal: Denies back pain or muscle pain Neuro: Denies numbness, tingling, weakness or focal weakness Skin: Denies rash Except as documented, all other systems reviewed and negative [facility] Past Medical History Medical History Chronic kidney disease COPD (chronic obstructive pulmonary disease) Coronary artery disease Dementia Diabetes type 2, controlled GERD (gastroesophageal reflux disease) History of left heart catheterization Hyperlipidemia Hypertension Surgical History Surgical History H/O inguinal hernia repair Hx of CABG Social History Social History Smoking packs per day: 0.2 Smoking cigarettes per day: 4.0 Years smoked: 68 Smoking pack-years: 13.60 Smoking status: Current every day smoker Tobacco type: cigarettes Additional smoking assessment comments: STATES NOW SMOKES 2-3 CIGARETTES ON THURSDAY FOR 2 YEARS Alcohol intake: never Alcohol use details: DRANK EVERYDAY QUIT- 1971 Substance use: never Gender identity (if verbalized by the patient): Male Spiritual care concerns: No Exam [facility]
[2021-09-14 18:36] LABS: Basophils Percent Auto 0.3 % (0.2-1.2); Hematocrit 30.2 % (42.0-52.0); Hemoglobin 9.1 g/dL (14.0-18.0); Immature Granulocyte Absolute 0.08 K/mm3 (0.00-0.031); Immature Granulocyte Percent A 0.7 % (0-0.5); Lymphocytes Absolute Auto 0.78 K/mm3 (0.9-3.2); Lymphocytes Percent Auto 7.1 % (18.3-44.2); Mean Corpuscular HGB Conc 30.1 g/dl (32-36); Mean Corpuscular Hemoglobin 29.4 pg (26-34); Mean Corpuscular Volume 97.7 fl (80-100); Mean Platelet Volume 9.9 fl (7.4-10.4); Monocytes Absolute Auto 1.1 K/mm3 (0.1-0.6); Monocytes Percent Auto 10.1 % (2.6-8.5); Neutrophils Percent Auto 81.8 % (45.5-73.1); Platelet Count Result 206 k/mm3 (150-375); Red Blood Count 3.09 M/mm3 (4.6-6.20); Red Cell Distribution Width 15.8 % (11.5-14.5)
[2021-09-14 18:45] LABS: Lactic Acid Reflex 1.3 mmol/L (0.7-2.0)
[2021-09-14] MEDS: SODIUM CHLORIDE 0.9% IV 1,000 ML 999 ML IV CONT (18:45)
[2021-09-14 18:48] LABS: Alanine Aminotransferase 11 U/L (6-50); Alkaline Phosphatase 94 U/L (38-126); Anion Gap 8 mmol/L (8-16); Aspartate Amino Transferase 17 U/L (17-59); Bilirubin,Total 0.8 mg/dL (0.2-1.3); Blood Urea Nitrogen 21 mg/dL (9-20); Calcium 8.1 mg/dL (8.4-10.2); Carbon Dioxide 26 mmol/L (22-30); Chloride 102 mmol/L (98-107); Estimated CRCL calculation 24 ml/min; Estimated Glomerular Filt Rate 25; Glucose 131 mg/dL (65-110); Potassium 3.4 mmol/L (3.4-5.0); Sodium 136 mmol/L (137-145)
[2021-09-14 18:49] LABS: INR 1.1; Partial Thromboplastin Time 34.8 SECONDS (22.3-36.8); Prothrombin Time 14.1 Seconds (11.1-14.7)
[2021-09-14 18:59] LABS: Lipase 84 U/L (23-300)
[2021-09-14 19:02] LABS: NT Pro B Type Natriuretic Pept 9780 pg/mL (5-100); Troponin I 0.055 ng/mL (0.000-0.034)
[2021-09-14 19:56] LABS: Appearance Urine Slightly Cloudy (Clear); Bilirubin Urine Negative (Negative); Blood Urine 2+ (Negative); Color Urine Yellow (Yellow); Glucose Urine UA Negative (Negative); Ketones Urine Negative (Negative); Leukocyte Esterase Ur Negative LEU/UL (Negative); Nitrate Urine Negative (Negative); Protein Urine 2+ mg/dL (Negative); Specific Grav Ur >= 1.030 (1.001-1.035); Urobilinogen Urine 0.2 mg/dL (<2.0); pH Urine 5.5 (5.0-9.0)
[2021-09-14 19:56] LABS: SARS-CoV-2 RNA PCR Negative
[2021-09-14 20:04] LABS: Amorphous Sediment Urine Few; Bacteria Urine Trace /hpf; Mucus Urine Rare /lpf; Squamous Epithelial Cell Urine Occasional /hpf (Few)
[2021-09-14 20:05] LABS: Add Urine Microscopic? YES
[2021-09-14] MEDS: metroNIDAZOLE 500 MG/ISO 100ML 500 MG/100 ML BAG 100 MG IVPB (20:42)
[2021-09-14] MEDS: ASPIRIN 81 MG CHEWABLE TABLET 324 MG PO (20:43)
--- NOTE | 2021-09-14 21:37 | PM.IMHP ---
H&P: HPI History of Present Illness Date/Time: 09/14/21 21:37 Chief Complaint: Weakness, falls Narrative: 81-year-old male with past medical history of COPD, coronary artery disease, diabetes, and chronic kidney disease who presented to the ER with weakness and falls. Source of information is ER report, past medical records and patient report. The patient is only a fair historian. The patient has chronic shortness of breath. He states that over the last week or so he has been more short of breath. He is gasping for air by the time he gets back from the bathroom. He thinks he may have some increased cough. He denies any sputum production. He reports that he wheezes all the time but he cannot tell me if he is wheezing more than usual. The patient has difficulty with answering specifics regarding his recent symptoms. He also reports lower abdominal pain. In the ER he had evidently reported the left lower quadrant abdominal pain. He indicated that he has been having lower abdominal pain across both lower quadrants to me. It is unclear how long this pain is been going on. The may be intermittent in nature but seems to be occurring more frequently currently. He has been associated with some darker stools and may be black but no blood. He reports that he has had colonoscopies before but he cannot recall when he had the and he does not recall the results. He denies any change in frequency of stools. His last bowel movement was yesterday. He cannot give me a description of the quality of the pain. He does report that he has fallen 2 or 3 times in the last week. He reports that he will be walking cross the room and that he will develop a sharp pain in the back of his thigh that will radiate down to his foot in his leg will give out. This is not a new issue but again may be happening more frequently due to his weakness. He denied any known fevers but was febrile on arrival to the ER with a temperature of 100.6?. He is vaccinated against COVID (august and November of 2020) but did not receive a booster. His COVID PCR was negative in the ER. He reports that he has is hungry as a horse and denies any nausea or vomiting. He does have a history of dysphagia during prior hospitalization in 2019 where he he had episodes of silent aspiration but he refused to G-tube at that time. He denies any difficulty eating. He has not had any rhinorrhea, or odynophagia. Denies any difficulty with urinary symptoms. Denies any chest pain. He denies any orthopnea. The patient seemed to be working hard to breathe. He stated that he has always been a ?hard breather?. He reports that as long as he stays still he is not more short of breath. Review of Systems Review of Systems: 12 systems were reviewed with pertinent positives and negatives per HPI. Except as documented in the HPI, all other systems were reviewed and are negative. [facility] Past Medical History Medical History (Updated 09/15/21 @ 03:04 by Lucia Le DO) COPD (chronic obstructive pulmonary disease) Coronary artery disease Dementia Diabetes type 2, controlled Diabetic peripheral neuropathy Dysphagia With history absent gag reflex with failed modified barium swallow October 2018. Patient refused G-tube at the time. GERD (gastroesophageal reflux disease) History of left heart catheterization Hyperlipidemia Hypertension Hyponatremia 132-136 Normal echocardiogram October 2018 Orthostatic hypotension Stage 3b chronic kidney disease Secondary to diabetes, hypertension, vascular disease and age Surgical History Surgical History (Updated 09/14/21 @ 21:55 by Lucia Le DO) H/O inguinal hernia repair Hx of CABG 3 vessel Family History Family History (Updated 09/14/21 @ 21:59 by Lucia Le DO) Mother Breast cancer COPD (chronic obstructive pulmonary disease) Hypertension Sibling Malignant neoplasm of prostate COPD (chronic obstructive pulmonary disease) Sister H
[2021-09-14 22:03] LABS: Troponin I 0.065 ng/mL (0.000-0.034)
--- NOTE | 2021-09-14 22:35 | ADMGEN ---
This patient, Miky Fuentes, was admitted to IMU Room 212-01 at 2220. Patient/family oriented to hospital policies and general routines including ID bracelet, bed and alarms, visiting hours, pain management, procedures, bathroom and other care routines, personal items, smoking policy, room service/diet, and visiting hours. Information on how to activate the Rapid Response Team has been discussed. Patient/Family are encouraged to report perceived risks to care and to ask questions if they do not understand what they are told or what they should do.
[2021-09-15] VITALS (20 sets, daily range): BP systolic 104–150; BP diastolic 45–64; PULSE 36–80; RESP 16–24; TEMP 36.5–37.3; O2SAT 96–100
[2021-09-15 02:29] LABS: Basophils Percent Auto 0.1 % (0.2-1.2); Hematocrit 25.9 % (42.0-52.0); Hemoglobin 7.7 g/dL (14.0-18.0); Immature Granulocyte Absolute 0.06 K/mm3 (0.00-0.031); Immature Granulocyte Percent A 0.8 % (0-0.5); Lymphocytes Absolute Auto 0.88 K/mm3 (0.9-3.2); Lymphocytes Percent Auto 11.1 % (18.3-44.2); Mean Corpuscular HGB Conc 29.7 g/dl (32-36); Mean Corpuscular Hemoglobin 29.3 pg (26-34); Mean Corpuscular Volume 98.5 fl (80-100); Mean Platelet Volume 9.4 fl (7.4-10.4); Monocytes Absolute Auto 0.8 K/mm3 (0.1-0.6); Monocytes Percent Auto 10.2 % (2.6-8.5); Neutrophils Absolute Auto 6.2 K/mm3 (1.3-6.7); Neutrophils Percent Auto 77.8 % (45.5-73.1); Platelet Count Result 162 k/mm3 (150-375); Red Blood Count 2.63 M/mm3 (4.6-6.20); Red Cell Distribution Width 15.7 % (11.5-14.5); White Blood Count 7.9 K/mm3 (4.5-10.0)
[2021-09-15 02:39] LABS: Alanine Aminotransferase 9 U/L (6-50); Albumin Level 2.3 g/dL (3.5-5.1); Alkaline Phosphatase 71 U/L (38-126); Anion Gap 3 mmol/L (8-16); Aspartate Amino Transferase 14 U/L (17-59); Bilirubin,Total 0.4 mg/dL (0.2-1.3); Blood Urea Nitrogen 22 mg/dL (9-20); Calcium 7.2 mg/dL (8.4-10.2); Carbon Dioxide 27 mmol/L (22-30); Chloride 104 mmol/L (98-107); Estimated CRCL calculation 21 ml/min; Estimated Glomerular Filt Rate 25; Glucose 250 mg/dL (65-110); Potassium 3.2 mmol/L (3.4-5.0); Sodium 134 mmol/L (137-145)
[2021-09-15 02:52] LABS: Troponin I 0.058 ng/mL (0.000-0.034)
[2021-09-15] MEDS: metroNIDAZOLE 500 MG/ISO 100ML 500 MG/100 ML BAG 100 MG IVPB ×4 (03:06→20:45)
[2021-09-15] MEDS: POTASSIUM CHLORIDE 20 MEQ PACKET (FOR LIQUID) 40 MEQ PO (03:10)
[2021-09-15 08:05] LABS: Glucose Point of Care 77 mg/dl (65-105)
[2021-09-15] MEDS: ALBUTEROL SULFATE NEB 2.5 MG/0.5 ML INH 5 MG ×2 (08:16→14:13)
[2021-09-15] MEDS: IPRATROPIUM BR 0.02% INH SOLN 0.5 MG/2.5 ML VIAL INHALATION ×3 (08:16→20:13)
[2021-09-15 09:29] LABS: Hematocrit 28.4 % (42.0-52.0); Hemoglobin 8.6 g/dL (14.0-18.0)
[2021-09-15 09:38] LABS: Iron 36 ug/dL (49-181)
--- NOTE | 2021-09-15 09:39 | PM.IMPN ---
Progress Note: A&P Assessment and Plan (1) Acute proctitis: Code(s): K62.89 - Other specified diseases of anus and rectum Status: Acute Assessment and Plan: Patient is afebrile today. He continues to have left lower quadrant pain. Patient has been placed on empiric antibiotic therapy with Levaquin and Flagyl since his admission. GI has been consulted. Repeat CBC showed a drop in hemoglobin from 9.1-7.7. Patient denies any bowel movements since coming to the hospital. Continue antibiotic treatment, pain control. (2) Anemia: Code(s): D64.9 - Anemia, unspecified Status: Acute Assessment and Plan: Current hemoglobin 7.7, dropped from 9.1 yesterday. His baseline appears to be around 11-12. He did receive a 1 L fluid bolus in the ER, but has not received any distress fluids during his stay. He does report a black stool yesterday. He denies hematemesis hematochezia. GI has been consulted for the above problem as well as this, and we do appreciate their consultation. Iron panel B12/Folic Acid H&H Q6H, transfuse if Hgb less than 7. Protonix b.i.d. Patient had breakfast but has been made NPO. (3) Elevated troponin: Code(s): R77.8 - Other specified abnormalities of plasma proteins Status: Acute Assessment and Plan: Patient remains chest pain-free. Not due to acute ischemic event. Troponin profile is flat. Likely due to the patient's history of coronary artery disease in the setting of chronic kidney disease. Will continue to trend. Telemetry shows NSR. (4) Weakness: Code(s): R53.1 - Weakness Status: Acute Assessment and Plan: Likely acute decompensation and conditioning in the setting of proctitis and acute COPD exacerbation. Will treat underlying causes and consult PT and OT for eval (5) [id number] kidney injury: Qualifiers: Acute renal failure type: unspecified Chronic kidney disease stage: stage 3 (moderate) Chronic kidney disease stage 3 subtype: stage 3b (GFR 30-44) Qualified Code(s): N17.9 - Acute kidney failure, unspecified; N18.32 - Chronic kidney disease, stage 3b Code(s): N17.9 - Acute kidney failure, unspecified; N18.9 - Chronic kidney disease, unspecified Status: Acute Assessment and Plan: Patient's creatinine is up compared to discharge value last month but overall is not that far from baseline. I suspect this is may be the patient's new baseline. Will monitor urine and electrolytes. (6) COPD exacerbation: Code(s): J44.1 - Chronic obstructive pulmonary disease with (acute) exacerbation Status: Acute Assessment and Plan: The patient has increased cough and dyspnea on exertion. Will place patient on prednisone 40 mg p.o. daily and will add scheduled nebulizer treatments with albuterol and Atrovent. (7) Acute hypokalemia: Code(s): E87.6 - Hypokalemia Status: Acute Assessment and Plan: 40 mEq potassium chloride ordered last night. Repeat potassium 3.2. (8) Type 2 diabetes mellitus with hyperglycemia, without long-term current use of insulin: Code(s): E11.65 - Type 2 diabetes mellitus with hyperglycemia Status: Acute Assessment and Plan: Historically well controlled with hemoglobin A1c of 6.3 07/30/2021. Hyperglycemia likely due to acute infectious process. Will continue patient's home oral hypoglycemic agents and will add moderate sliding scale insulin with Accu-Cheks a.c. HS. Hypoglycemia protocol has been ordered. Plan Patient has been admitted as observation status. Subjective Date/time seen: 09/15/21 09:39 81-year-old male with medical history of diabetes, coronary artery disease with history of CABG, COPD, GERD, dysphagia, stage III CKD who presents for 1 week of worsening shortness of Breath, weakness, abdominal pain, and diarrhea. He does report he is having worse epigastric pain today, he did have 1 loose b
[2021-09-15 09:47] LABS: Percent Iron Saturation 19 % (20-50)
[2021-09-15] MEDS: carvediloL 12.5 MG TABLET PO ×2 (10:38→20:44)
[2021-09-15] MEDS: EZETIMIBE 5 MG TABLET PO (10:38)
[2021-09-15] MEDS: GABAPENTIN 300 MG CAPSULE PO ×2 (10:39→17:06)
[2021-09-15] MEDS: FAMOTIDINE 20 MG TABLET PO ×2 (10:39→17:06)
[2021-09-15] MEDS: PIOGLITAZONE HCL 30 MG TABLET PO (10:39)
[2021-09-15] MEDS: predniSONE 20 MG TABLET 40 MG PO (10:39)
[2021-09-15] MEDS: DONEPEZIL HCL 10 MG TABLET PO (10:40)
[2021-09-15] MEDS: FERROUS SULFATE 324 MG TABLET PO (10:40)
[2021-09-15 12:43] LABS: Glucose Point of Care 121 mg/dl (65-105)
--- NOTE | 2021-09-15 13:42 | WPDGICN ---
Assessment and Plan Assessment and plan (1) Left lower quadrant abdominal pain: Code(s): R10.32 - Left lower quadrant pain Status: Acute Assessment and Plan: CT suggests proctitis or proctosigmoiditis. He is pain free now. If he begins having discomfort when we feed him I told that we may need to do a colonoscopy. (2) COPD exacerbation: Code(s): J44.1 - Chronic obstructive pulmonary disease with (acute) exacerbation Status: Acute Assessment and Plan: He has been started on steroids as well as nebulizer treatments and albuterol. He thinks his breathing is a bit better today than it was yesterday (3) Anemia: Code(s): D64.9 - Anemia, unspecified Status: Acute Assessment and Plan: MCV is normal but iron levels are low. His hemoglobin is 8 0.6 GI Consult Note Consult date/time: 09/15/21 13:42 HPI: Miky Fuentes is a 81 year old male. he presented to the emergency room yesterday with complaints of being weak of being short of breath and having abdominal pain. He has stated that he was gasping for air just walking to and from the bathroom. He has a diagnosis of COPD as well as coronary artery disease and chronic kidney disease. He is also diabetic. He states that for the past week or so he would have pain in the lower abdomen primarily on the left side after eating. The pain that would gradually subside. His bowel movements had been normal although they are black. He attributes that to taking iron. He has seen no red blood in his stools. He states that for years he would have colonoscopies in [place]. He cannot recall why but would being done it seems every 2 or 3 years. He denies any history of ulcerative colitis. The CT scan however shows inflammation or some swelling in the rectum. Review of Systems Review of Systems: All systems reviewed & are unremarkable except as noted in HPI and below [facility] Past Medical History Medical History (Updated 09/15/21 @ 13:45 by Cam Lea MD) COPD (chronic obstructive pulmonary disease) Coronary artery disease Dementia Diabetes type 2, controlled Diabetic peripheral neuropathy Dysphagia With history absent gag reflex with failed modified barium swallow October 2018. Patient refused G-tube at the time. GERD (gastroesophageal reflux disease) History of left heart catheterization Hyperlipidemia Hypertension Hyponatremia 132-136 Normal echocardiogram October 2018 Orthostatic hypotension Stage 3b chronic kidney disease Secondary to diabetes, hypertension, vascular disease and age Surgical History Surgical History (Updated 09/14/21 @ 21:55 by Lucia Le DO) H/O inguinal hernia repair Hx of CABG 3 vessel Family History Family History (Updated 09/14/21 @ 21:59 by Lucia Le DO) Mother Breast cancer COPD (chronic obstructive pulmonary disease) Hypertension Sibling Malignant neoplasm of prostate COPD (chronic obstructive pulmonary disease) Sister Hypertension Acute myocardial infarction Brother Lung cancer Sister Social History Social History (Updated 09/15/21 @ 02:45 by Lucia Le DO) Social History: He has a greater than 100 pack per year smoking history. He smoked 3 packs of cigarettes per day from the time he was 13 until is CABG in 2002. He is down to smoking a few cigarettes cigarettes a week. He has live with the same woman for approximately 30 years but states that he is not . He has 2 daughters 1 of which he is estranged from. Code status: Full code Surrogate decision maker: Sona Escobedo (significant other) Smoking packs per day: 3 Smoking cigarettes per day: 60.0 Years smoked: 48 Smoking pack-years: 144.00 Smoking status: Current every day smoker Tobacco type: cigarettes Second hand tobacco smoke exposure: Yes Alcohol intake: former Alcohol use details: DRANK EVERYDAY QUIT- 1971 Substance
[2021-09-15 14:59] LABS: Hematocrit 27.7 % (42.0-52.0); Hemoglobin 8.4 g/dL (14.0-18.0)
[2021-09-15 16:36] LABS: Glucose Point of Care 291 mg/dl (65-105)
[2021-09-15 17:07] LABS: Glucose Point of Care 336 mg/dl (65-105)
[2021-09-15] MEDS: INSULIN ASPART (*BKC) 100 UNITS/ML SUB-Q (17:10)
--- NOTE | 2021-09-15 17:13 | PC.NURSE ---
This patient, Miky Fuentes, was transferred to [ [id number]] on 09/15/21 at 16:35. Personal belongings sent with patient. Report given to [Estrellita. Appropriate documentation sent with patient.
[2021-09-15] MEDS: ALBUTEROL SULFATE NEB 2.5 MG/3 ML INH 5 MG INHALATION (20:13)
[2021-09-15] MEDS: ROSUVASTATIN 10 MG TABLET 20 MG PO (20:44)
[2021-09-15] MEDS: polyethylene glycoL 3350 17 GM POWD.PACK PO (20:44)
[2021-09-15] MEDS: PANTOPRAZOLE SODIUM IV 40 MG VIAL IV PUSH (20:45)
[2021-09-15] MEDS: ASPIRIN 81 MG ENTERIC TABLET PO (20:45)
[2021-09-15 21:14] LABS: Glucose Point of Care 266 mg/dl (65-105)
[2021-09-15 21:21] LABS: Hematocrit 27.9 % (42.0-52.0); Hemoglobin 8.3 g/dL (14.0-18.0)
[2021-09-16] VITALS (16 sets, daily range): BP systolic 119–138; BP diastolic 49–70; PULSE 61–88; RESP 12–22; TEMP 36.3–36.7; O2SAT 96–100
[2021-09-16] MEDS: ALBUTEROL SULFATE NEB 2.5 MG/3 ML INH 5 MG INHALATION ×3 (02:01→21:51)
[2021-09-16] MEDS: IPRATROPIUM BR 0.02% INH SOLN 0.5 MG/2.5 ML VIAL INHALATION ×4 (02:01→21:51)
[2021-09-16] MEDS: metroNIDAZOLE 500 MG/ISO 100ML 500 MG/100 ML BAG 100 MG IVPB ×4 (02:46→21:34)
--- NOTE | 2021-09-16 06:33 | WPDGIPROGNO ---
Progress Note: A&P Assessment and Plan (1) Left lower quadrant abdominal pain: Code(s): R10.32 - Left lower quadrant pain Status: Acute Assessment and Plan: CT suggests proctitis or proctosigmoiditis. He is pain free now. If he begins having discomfort when we feed him I told that we may need to do a colonoscopy. 09/16/21 06:33 he denies complaints today. He had that he had been having loose stools prior to admission but did not see he states he is breathing better today than he was on admission. He cannot recall being told in the past that he was anemic. He had had a colonoscopy many years ago in [place] but does not know the results of that I will schedule for colonoscopy to be done tomorrow. (2) COPD exacerbation: Code(s): J44.1 - Chronic obstructive pulmonary disease with (acute) exacerbation Status: Acute Assessment and Plan: He has been started on steroids as well as nebulizer treatments and albuterol. He thinks his breathing is a bit better today than it was yesterday 09/16/21 he states his breathing is better today. (3) Anemia: Code(s): D64.9 - Anemia, unspecified Status: Acute Assessment and Plan: MCV is normal but iron levels are low. His hemoglobin is 8.6 Subjective Date/time seen: Consult date/time: 09/15/21? 13:42 HPI: Miky Fuentes is a 81 year old male.? he presented to the emergency room yesterday with complaints of being weak of being short of breath and having abdominal pain.? He has stated that he was gasping? for air just walking to and from the bathroom.? He has a diagnosis of COPD as well as coronary artery disease and chronic kidney disease.? He is also diabetic. He states that for the past week or so he would have pain in the lower abdomen primarily on the left side after eating.? The pain that would gradually subside.? His bowel movements had been normal although they are black.? He attributes that to taking iron.? He has seen no red blood in his stools.? He states that for years he would have colonoscopies in [place].? He cannot recall why but would being done it seems every 2 or 3 years.? He denies any history of ulcerative colitis.? The CT scan however shows inflammation or some swelling in the rectum 09/16/21 06:33 he denies complaints today. He had that he had been having loose stools prior to admission but did not see he states he is breathing better today than he was on admission. He cannot recall being told in the past that he was anemic. He had had a colonoscopy many years ago in [place] but does not know the results of that I will schedule for colonoscopy to be done tomorrow. Exam Const: General: alert Orientation/consciousness: patient oriented x3 HENMT: Teeth and gingiva: edentulous Resp: Auscultation: clear to auscultation bilaterally Cardio: Rhythm: regular rhythm GI: Auscultation: normal bowel sounds Neuro: General: patient oriented x3 Objective Data Vital Signs Vital Signs: Vital Signs - 24 hr 09/15/21 08:10 09/15/21 08:10 09/15/21 08:21 Temperature Pulse Rate 65 64 Respiratory Rate 24 H 24 H Blood Pressure Pulse Oximetry 96 Oxygen Delivery Room Air 09/15/21 08:00 09/15/21 10:38 09/15/21 12:00 Temperature 36.6 C 36.6 C Pulse Rate 58 L 65 58 L Respiratory Rate 20 20 Blood Pressure 142/59 H 142/59 H Pulse Oximetry 98 98 Oxygen Delivery 09/15/21 14:10 09/15/21 14:16 09/15/21 08:00 Temperature Pulse Rate 66 64 57 L Respiratory Rate 20 20 Blood Pressure Pulse Oximetry Oxygen Delivery 09/15/21 10:00 09/15/21 12:00 09/15/21 14:00 Temperature Pulse Rate 64 65 65 Respiratory Rate Blood Pressure Pulse Oximetry Oxygen Delivery 09/15/21 08:00 09/15/21 12:00 09/15/21 16:00 Temperature Pulse Rate Respiratory Rate Blood Pressure Pulse Oximetry 98 98 98 Oxygen Delivery Room Air Room Air Room Air 09/15/21 16:4
--- NOTE | 2021-09-16 07:31 | PM.IMPN ---
Progress Note: A&P Assessment and Plan (1) Acute proctitis: Code(s): K62.89 - Other specified diseases of anus and rectum Status: Acute Assessment and Plan: Patient is afebrile today. His abdominal pain has resolved and he is tolerating a PO diet, but will be made NPO at midnight for colonoscopy tomorrow. Patient has been placed on empiric antibiotic therapy with Levaquin and Flagyl since his admission. Repeat CBC showed a drop in hemoglobin from 9.1-7.7. Patient denies any bowel movements since coming to the hospital. Continue antibiotic treatment, pain control. GI will perform colonoscopy tomorrow. (2) Anemia: Code(s): D64.9 - Anemia, unspecified Status: Acute Assessment and Plan: Current hemoglobin 8.0 today, stable. His baseline appears to be around 11-12. He did receive a 1 L fluid bolus in the ER, which he tolerated well. GI has been consulted for the above problem as well as this and the plan is for colonoscopy tomorrow. Iron is low. B12/Folic Acid WNL. H&H Q6H, transfuse if Hgb less than 7. Protonix BID. Diet has been advanced by GI today, and will be NPO after midnight tonight for C-Scope tomorrow. (3) Elevated troponin: Code(s): R77.8 - Other specified abnormalities of plasma proteins Status: Acute Assessment and Plan: Patient remains chest pain-free. Not due to acute ischemic event. Troponin profile is flat. Likely due to the patient's history of coronary artery disease in the setting of chronic kidney disease. We have D/C'd his telemetry and he has been moved to the floor at this time. (4) Weakness: Code(s): R53.1 - Weakness Status: Acute Assessment and Plan: Likely acute decompensation and conditioning in the setting of proctitis and acute COPD exacerbation. Will treat underlying causes. PT/OT have been consulted and are treating this patient. (5) [id number]-nfvejjb kidney injury: Qualifiers: Acute renal failure type: unspecified Chronic kidney disease stage: stage 3 (moderate) Chronic kidney disease stage 3 subtype: stage 3b (GFR 30-44) Qualified Code(s): N17.9 - Acute kidney failure, unspecified; N18.32 - Chronic kidney disease, stage 3b Code(s): N17.9 - Acute kidney failure, unspecified; N18.9 - Chronic kidney disease, unspecified Status: Acute Assessment and Plan: Patient's creatinine is stable from time of admission. Compared to discharge value last month it is elevated, but overall is not that far from baseline. I suspect this is may be the patient's new baseline. Will monitor urine and electrolytes. (6) COPD exacerbation: Code(s): J44.1 - Chronic obstructive pulmonary disease with (acute) exacerbation Status: Acute Assessment and Plan: Patient continues to saturate well on room air today. Continue treatment for COPD exacerbation: prednisone 40 mg p.o. daily and with scheduled nebulizer treatments with albuterol and Atrovent. (7) Acute hypokalemia: Code(s): E87.6 - Hypokalemia Status: Acute Assessment and Plan: Repeat K 4.2 today after receiving potassium yesterday. Will continue to monitor. (8) Type 2 diabetes mellitus with hyperglycemia, without long-term current use of insulin: Code(s): E11.65 - Type 2 diabetes mellitus with hyperglycemia Status: Acute Assessment and Plan: Historically well controlled with hemoglobin A1c of 6.3 07/30/2021. Hyperglycemia likely due to acute infectious process. Will continue patient's home oral hypoglycemic agents and will add moderate sliding scale insulin with Accu-Cheks a.c. HS. Hypoglycemia protocol has been ordered. Plan Patient has been admitted as observation status. Subjective Date/time seen: 09/16/21 07:31 81-year-old male with medical history of diabetes, coronary artery disease with history of CABG, COPD, GERD, dysphagia, stage III CKD who pr
[2021-09-16 08:06] LABS: Glucose Point of Care 188 mg/dl (65-105)
[2021-09-16 08:13] LABS: Hematocrit 26.9 % (42.0-52.0); Mean Corpuscular HGB Conc 29.7 g/dl (32-36); Mean Corpuscular Hemoglobin 29.3 pg (26-34); Mean Corpuscular Volume 98.5 fl (80-100); Mean Platelet Volume 9.9 fl (7.4-10.4); Platelet Count Result 197 k/mm3 (150-375); Red Blood Count 2.73 M/mm3 (4.6-6.20); Red Cell Distribution Width 15.6 % (11.5-14.5); White Blood Count 7.3 K/mm3 (4.5-10.0)
[2021-09-16 08:22] LABS: Alanine Aminotransferase 9 U/L (6-50); Albumin Level 2.6 g/dL (3.5-5.1); Alkaline Phosphatase 75 U/L (38-126); Anion Gap 6 mmol/L (8-16); Aspartate Amino Transferase 15 U/L (17-59); Bilirubin,Total 0.3 mg/dL (0.2-1.3); Blood Urea Nitrogen 21 mg/dL (9-20); Calcium 7.8 mg/dL (8.4-10.2); Carbon Dioxide 25 mmol/L (22-30); Chloride 103 mmol/L (98-107); Estimated CRCL calculation 24 ml/min; Estimated Glomerular Filt Rate 31; Glucose 183 mg/dL (65-110); Potassium 4.2 mmol/L (3.4-5.0); Sodium 134 mmol/L (137-145)
[2021-09-16] MEDS: DONEPEZIL HCL 10 MG TABLET PO (08:47)
[2021-09-16] MEDS: FAMOTIDINE 20 MG TABLET PO ×2 (08:47→16:19)
[2021-09-16] MEDS: FERROUS SULFATE 324 MG TABLET PO (08:47)
[2021-09-16] MEDS: carvediloL 12.5 MG TABLET PO ×2 (08:47→21:35)
[2021-09-16] MEDS: PIOGLITAZONE HCL 30 MG TABLET PO (08:47)
[2021-09-16] MEDS: GABAPENTIN 300 MG CAPSULE PO ×2 (08:47→16:19)
[2021-09-16] MEDS: predniSONE 20 MG TABLET 40 MG PO (08:48)
[2021-09-16] MEDS: EZETIMIBE 5 MG TABLET PO (08:48)
[2021-09-16 08:49] LABS: IFOB Positive Control Positive; Immunochemical Fecal Occult Bl Negative (N)
[2021-09-16] MEDS: PANTOPRAZOLE SODIUM IV 40 MG VIAL IV PUSH ×2 (08:55→21:35)
[2021-09-16] MEDS: ALBUTEROL SULFATE NEB 2.5 MG/0.5 ML INH 5 MG (09:04)
[2021-09-16 11:40] LABS: Glucose Point of Care 273 mg/dl (65-105)
[2021-09-16] MEDS: INSULIN ASPART (*BKC) 100 UNITS/ML SUB-Q ×2 (12:20→16:35)
[2021-09-16] MEDS: ALBUTEROL SULFATE NEB 2.5 MG/0.5 ML INH (13:50)
[2021-09-16] MEDS: polyethylene glycoL 3350 238 GM BOTTLE PO (15:03)
[2021-09-16 15:14] LABS: Hematocrit 27.4 % (42.0-52.0); Hemoglobin 8.2 g/dL (14.0-18.0)
[2021-09-16 16:27] LABS: Glucose Point of Care 302 mg/dl (65-105)
[2021-09-16] MEDS: polyethylene glycoL 3350 17 GM POWD.PACK PO (21:35)
[2021-09-16] MEDS: ROSUVASTATIN 10 MG TABLET 20 MG PO (21:35)
[2021-09-16] MEDS: BISACODYL 5 MG TABLET EC 10 MG PO (21:35)
[2021-09-16 21:50] LABS: Glucose Point of Care 355 mg/dl (65-105)
[2021-09-16 22:32] LABS: Hematocrit 28.3 % (42.0-52.0); Hemoglobin 8.5 g/dL (14.0-18.0)
[2021-09-17] VITALS (22 sets, daily range): BP systolic 104–153; BP diastolic 39–62; PULSE 56–81; RESP 14–28; TEMP 36.2–36.9; O2SAT 96–100
[2021-09-17] MEDS: ALBUTEROL SULFATE NEB 2.5 MG/3 ML INH 5 MG INHALATION (02:22)
[2021-09-17] MEDS: IPRATROPIUM BR 0.02% INH SOLN 0.5 MG/2.5 ML VIAL INHALATION ×4 (02:22→20:03)
[2021-09-17] MEDS: metroNIDAZOLE 500 MG/ISO 100ML 500 MG/100 ML BAG 100 MG IVPB ×2 (03:17→08:14)
[2021-09-17] MEDS: MAGNESIUM CITRATE 300 ML BTL 180 ML PO (05:13)
[2021-09-17 05:51] LABS: Basophils Percent Auto 0.1 % (0.2-1.2); Hemoglobin 7.9 g/dL (14.0-18.0); Immature Granulocyte Absolute 0.07 K/mm3 (0.00-0.031); Immature Granulocyte Percent A 0.8 % (0-0.5); Lymphocytes Absolute Auto 0.68 K/mm3 (0.9-3.2); Lymphocytes Percent Auto 7.9 % (18.3-44.2); Mean Corpuscular HGB Conc 30.4 g/dl (32-36); Mean Corpuscular Hemoglobin 29.6 pg (26-34); Mean Corpuscular Volume 97.4 fl (80-100); Mean Platelet Volume 9.8 fl (7.4-10.4); Monocytes Absolute Auto 0.5 K/mm3 (0.1-0.6); Monocytes Percent Auto 6.3 % (2.6-8.5); Neutrophils Absolute Auto 7.3 K/mm3 (1.3-6.7); Neutrophils Percent Auto 84.9 % (45.5-73.1); Platelet Count Result 203 k/mm3 (150-375); Red Blood Count 2.67 M/mm3 (4.6-6.20); Red Cell Distribution Width 15.4 % (11.5-14.5); White Blood Count 8.6 K/mm3 (4.5-10.0)
[2021-09-17 06:09] LABS: Alanine Aminotransferase 12 U/L (6-50); Albumin Level 2.4 g/dL (3.5-5.1); Alkaline Phosphatase 72 U/L (38-126); Anion Gap 5 mmol/L (8-16); Aspartate Amino Transferase 16 U/L (17-59); Bilirubin,Total 0.1 mg/dL (0.2-1.3); Blood Urea Nitrogen 22 mg/dL (9-20); Calcium 7.7 mg/dL (8.4-10.2); Carbon Dioxide 24 mmol/L (22-30); Chloride 103 mmol/L (98-107); Estimated CRCL calculation 25 ml/min; Estimated Glomerular Filt Rate 32; Glucose 157 mg/dL (65-110); Potassium 3.8 mmol/L (3.4-5.0); Sodium 132 mmol/L (137-145)
[2021-09-17 07:49] LABS: Glucose Point of Care 143 mg/dl (65-105)
--- NOTE | 2021-09-17 07:55 | WPDANESEPPF ---
Anes - Initial Pre Proc Eval Procedure: Operation Date: 09/17/21 12:00 Proposed Procedures p Colonoscopy - Cam Lea MD Date/Time: 09/17/21 07:55 Surgeon: Radha Cruz PA-C Pre Op Diagnosis: Proctitis,Elevated Troponin,Chronic Renal Insuffic Patient Data Age: 81 Gender: M Height: 1.7 m Weight: 88.1 kg Last Vital Signs Temp 36.6 C 09/17/21 04:45 Pulse 63 09/17/21 04:45 Resp 20 09/17/21 04:45 BP 138/59 L 09/17/21 04:45 Pulse Ox 98 09/17/21 04:45 O2 Del Method Room Air 09/16/21 21:53 Allergies Allergy/AdvReac Type Severity Reaction Status Date / Time morphine Allergy Intermediate Itching Verified 07/28/21 15:42 Penicillins Allergy Mild Unknown Verified 07/28/21 15:42 Home Medications Medication Instructions Recorded Confirmed Type amlodipine 5 mg tablet 5 mg PO DAILY 10/11/19 09/14/21 History carvedilol 12.5 mg tablet 12.5 mg PO BID 10/11/19 09/14/21 History donepezil 10 mg tablet 10 mg PO DAILY 10/11/19 09/14/21 History ezetimibe 10 mg tablet 5 mg PO DAILY 10/11/19 09/14/21 History famotidine 20 mg tablet 20 mg PO BID 10/11/19 09/14/21 History furosemide 20 mg tablet 20 mg PO DAILY 10/11/19 09/14/21 History gabapentin 300 mg capsule 300 mg PO BID 10/11/19 09/14/21 History pioglitazone 30 mg tablet 30 mg PO DAILY 10/11/19 09/14/21 History rosuvastatin 40 mg tablet 20 mg PO HS 10/11/19 09/14/21 History sitagliptin 100 mg tablet (Januvia) 100 mg PO DAILY 10/11/19 09/14/21 History albuterol sulfate 2.5 mg/3 mL 2.5 mg inhalation BID 07/28/21 09/14/21 History (0.083 %) solution for nebulization aspirin 81 mg tablet 81 mg PO HS 07/28/21 09/14/21 History budesonide 160 mcg-glycopyr 9 2 inh inhalation BID 07/28/21 09/14/21 History mcg-formot 4.8 mcg/actuation HFA inhaler (Breztri Aerosphere) hydrocodone 5 mg-acetaminophen 325 2 tablet PO Q6H PRN pain 07/28/21 09/14/21 History mg tablet albuterol sulfate 90 mcg/actuation 1 inh inhalation QID PRN shortness 08/04/21 09/14/21 Rx aerosol inhaler of breath or wheezing #6.7 grams ferrous sulfate 325 mg (65 mg 1 tablet PO DAILY 09/15/21 09/15/21 History iron) tablet Laboratory Tests 09/16/21 09/16/21 09/16/21 07:41 07:41 08:03 WBC 7.3 K/mm3 K/mm3 (4.5-10.0) RBC 2.73 M/mm3 L M/mm3 (4.6-6.20) Hgb 8.0 g/dL L g/dL (14.0-18.0) Hct 26.9 % L % (42.0-52.0) MCV 98.5 fl fl (80-100) MCH 29.3 pg pg (26-34) MCHC 29.7 g/dl L g/dl (32-36) RDW 15.6 % H % (11.5-14.5) Plt Count 197 k/mm3 k/mm3 (150-375) MPV 9.9 fl fl (7.4-10.4) Immature Gran % (Auto) Neut % (Auto) Lymph % (Auto) [place] % (Auto) Eos % (Auto) Baso % (Auto) Lymph # (Auto) [place] # (Auto) Eos # (Auto) Baso # (Auto) Abs Immat Gran (auto) Absolute Neuts (auto) Absolute Nucleated RBC Nucleated RBC % Sodium 134 mmol/L L mmol/L (137-145) Potassium 4.2 mmol/L mmol/L (3.4-5.0) Chloride 103 mmol/L mmol/L (98-107) Carbon Dioxide 25 mmol/L mmol/L (22-30) Anion Gap 6 mmol/L L mmol/L (8-16) BUN 21 mg/dL H mg/dL (9-20) Creatinine 2.10 mg/dL H mg/dL (0.7-1.3) Estim Creat Clear Calc 24 ml/min ml/min Estimated GFR 31 L (59 - ) Glucose 183 mg/dL H mg/dL (65-110) POC Capillary Glucose 188 mg/dl H mg/dl (65-105) Calcium 7.8 mg/dL L mg/dL (8.4-10.2) Total Bilirubin 0.3 mg/dL mg/dL (0.2-1.3) AST 15 U/L L U/L (17-59) ALT 9 U/L U/L (6-50) Alkaline Phosphatase 75 U/L U/L (38-126) Total Protein 6.0 g/dL L g/dL (6.3-8.2) Albumin 2.6 g/dL L g/dL (3.5-5.1) Stl Occult Blood (IFOB) 0
[2021-09-17] MEDS: carvediloL 12.5 MG TABLET PO ×2 (08:13→20:39)
[2021-09-17] MEDS: PANTOPRAZOLE SODIUM IV 40 MG VIAL IV PUSH ×2 (08:14→20:42)
--- NOTE | 2021-09-17 08:28 | PCPTNOTE ---
Patient refused treatment this session. Patient reported he was up all night using the restroom and that he is feeling dizzy right now. RN notified.
[2021-09-17] MEDS: ALBUTEROL SULFATE NEB 2.5 MG/0.5 ML INH (09:00)
[2021-09-17 11:20] LABS: Glucose Point of Care 122 mg/dl (65-105)
[2021-09-17] MEDS: LACTATED RINGERS 1,000 ML 150 ML IV CONT (11:53)
[2021-09-17 13:33] LABS: Glucose Point of Care 125 mg/dl (65-105)
[2021-09-17] MEDS: ALBUTEROL SULFATE NEB 2.5 MG/0.5 ML INH 5 MG INHALATION ×2 (14:06→20:03)
[2021-09-17 14:10] LABS: Hemoglobin 8.3 g/dL (14.0-18.0)
--- NOTE | 2021-09-17 14:47 | PM.DS ---
DS: Admitting Diagnosis Discharge Date 09/17/2021 1600 Admitting Diagnosis Weakness, falls, abdominal pain DS: Discharge Diagnosis Discharge Diagnosis (1) Acute proctitis: Code(s): K62.89 - Other specified diseases of anus and rectum Status: Acute Assessment and Plan: Patient is afebrile today. His abdominal pain has resolved and he is tolerating a PO diet, but will be made NPO at midnight for colonoscopy tomorrow. Patient has been placed on empiric antibiotic therapy with Levaquin and Flagyl, which we will discontinue, as there is no current indication after colonoscopy findings. Patient has no concerns with his bowel movements at this time. GI formed a colonoscopy with no evidence of proctitis, no abnormal findings. Advised patient advanced diet as tolerated, will follow-up only if needed with GI. (2) Anemia: Code(s): D64.9 - Anemia, unspecified Status: Acute Assessment and Plan: Current hemoglobin 8.3 today, stable. His baseline appears to be around 11-12. He did receive a 1 L fluid bolus in the ER, which he tolerated well. GI has been consulted for the above problem as well as this and the plan is for colonoscopy tomorrow. Iron is low. B12/Folic Acid WNL. H&H Q6H, transfuse if Hgb less than 7. Protonix BID. Diet has been advanced by GI. (3) Elevated troponin: Code(s): R77.8 - Other specified abnormalities of plasma proteins Status: Acute Assessment and Plan: Patient remains chest pain-free. Not due to acute ischemic event. Troponin profile is flat. Likely due to the patient's history of coronary artery disease in the setting of chronic kidney disease. We have D/C'd his telemetry and he has been moved to the floor at this time. (4) Weakness: Code(s): R53.1 - Weakness Status: Acute Assessment and Plan: Neuro exam has been normal. No focal neurologic deficits, patient denies saddle anesthesia, loss of bladder or bowel function. denies loss of sensation to the lower extremities. He simply states when he fell his legs would not work to get him up. CT abdomen pelvis showed no acute osseous findings, chronic cystitis, rectal wall thickening and inflammation. CT head showed no acute intracranial process. Likely acute decompensation and conditioning in the setting of proctitis and acute COPD exacerbation. Will treat underlying causes. PT/OT have been consulted and are treating this patient. Patient declined home health, but would be interested in going to outpatient physical therapy. He was anxious about going home tonight without answers for his weakness. I did discuss his course of treatment and that he was anemic and we evaluated him for GI bleed with negative findings. I also discussed the proctitis that we found and treated which appears to have resolved per his colonoscopy, and also address the COPD flare we have been treating with steroids and inhalers. Given patient's concerns for discharge with his weakness, will order CT lumbar spine. (5) Jyqne-km-ddahanw kidney injury: Qualifiers: Acute renal failure type: unspecified Chronic kidney disease stage: stage 3 (moderate) Chronic kidney disease stage 3 subtype: stage 3b (GFR 30-44) Qualified Code(s): N17.9 - Acute kidney failure, unspecified; N18.32 - Chronic kidney disease, stage 3b Code(s): N17.9 - Acute kidney failure, unspecified; N18.9 - Chronic kidney disease, unspecified Status: Acute Assessment and Plan: Patient's creatinine is stable from time of admission. Compared to discharge value last month it is elevated, but overall is not that far from baseline. I suspect this is may be the patient's new baseline. Will monitor urine and electrolytes, advised patient follow-up with primary care and Nephrology. (6) COPD exacerbation: Code(s): J44.1 - Chronic obstructive pulmonary disease with (acute) exacerbation Status:
[2021-09-17 16:30] LABS: Glucose Point of Care 169 mg/dl (65-105)
[2021-09-17] MEDS: GABAPENTIN 300 MG CAPSULE PO (16:56)
[2021-09-17] MEDS: FAMOTIDINE 20 MG TABLET PO (16:57)
--- NOTE | 2021-09-17 17:11 | P.PNIM_ITS ---
Progress Note: A&P Assessment and Plan (1) Weakness: Code(s): R53.1 - Weakness Status: Acute Assessment and Plan: Neuro exam has been normal. No focal neurologic deficits, patient denies saddle anesthesia, loss of bladder or bowel function. denies loss of sensation to the lower extremities. He simply states when he fell his legs would not work to get him up. CT abdomen pelvis showed no acute osseous findings, chronic cystitis, rectal wall thickening and inflammation. CT head showed no acute intracranial process. Likely acute decompensation and conditioning in the setting of proctitis and acute COPD exacerbation. Will treat underlying causes. PT/OT have been consulted and are treating this patient. Patient declined home health, but would be interested in going to outpatient physical therapy. He was anxious about going home tonight without answers for his weakness. I did discuss his course of treatment and that he was anemic and we evaluated him for GI bleed with negative findings. I also discussed the proctitis that we found and treated which appears to have resolved per his colonoscopy, and also address the COPD flare we have been treating with steroids and inhalers. 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 Blood culture showed no growth today. Given patient's concerns for discharge with his weakness, will order CT lumbar spine. (2) Acute proctitis: Code(s): K62.89 - Other specified diseases of anus and rectum Status: Acute Assessment and Plan: Patient is afebrile today. His abdominal pain has resolved and he is tolerating a PO diet, but will be made NPO at midnight for colonoscopy tomorrow. Patient has been placed on empiric antibiotic therapy with Levaquin and Flagyl, which we will discontinue, as there is no current indication after colonoscopy findings. Patient has no concerns with his bowel movements at this time. * GI formed a colonoscopy with no evidence of proctitis, no abnormal findings. Advised patient advanced diet as tolerated, will follow-up only if needed with GI. (3) Anemia: Code(s): D64.9 - Anemia, unspecified Status: Acute Assessment and Plan: Current hemoglobin 8.3 today, stable. His baseline appears to be around 11-12. He did receive a 1 L fluid bolus in the ER, which he tolerated well. GI has been consulted for the above problem as well as this and the plan is for colonoscopy tomorrow. * Iron is low. * B12/Folic Acid WNL. * H&H Q6H, transfuse if Hgb less than 7. * Protonix BID. * Diet has been advanced by GI. (4) Elevated troponin: Code(s): R77.8 - Other specified abnormalities of plasma proteins Status: Acute Assessment and Plan: Patient remains chest pain-free. Not due to acute ischemic event. Troponin profile is flat. Likely due to the patient's history of coronary artery disease in the setting of chronic kidney disease. We have D/C'd his telemetry and he has been moved to the floor at this time. (5) [id number]-eicsydb kidney injury: Qualifiers: Acute renal failure type: unspecified Chronic kidney disease stage: stage 3 (moderate) Chronic kidney disease stage 3 subtype: stage 3b (GFR 30-44) Qualified Code(s): N17.9 - Acute kidney failure, unspecified; N18.32 - Chronic kidney disease, stage 3b Code(s): N17.9 - Acute kidney failure, unspecified; N18.9 - Chronic kidney disease, unspecified Status: Acute Assessment and Plan: Patient's creatinine is stable from time of admission. Compared to discharge value last month it
[2021-09-17] MEDS: ROSUVASTATIN 10 MG TABLET 20 MG PO (20:38)
[2021-09-17] MEDS: ASPIRIN 81 MG ENTERIC TABLET PO (20:39)
[2021-09-17 21:19] LABS: Glucose Point of Care 225 mg/dl (65-105)
[2021-09-18] VITALS (7 sets, daily range): BP systolic 113; BP diastolic 48; PULSE 65–69; RESP 20; TEMP 36.2; O2SAT 97–98
[2021-09-18] MEDS: ALBUTEROL SULFATE NEB 2.5 MG/0.5 ML INH 5 MG INHALATION ×2 (02:15→08:58)
[2021-09-18] MEDS: IPRATROPIUM BR 0.02% INH SOLN 0.5 MG/2.5 ML VIAL INHALATION ×2 (02:15→08:58)
[2021-09-18 05:31] LABS: Basophils Percent Auto 0.2 % (0.2-1.2); Eosinophils Absolute Auto 0.1 K/mm3 (0-0.3); Eosinophils Percent Auto 0.9 % (0-4.4); Immature Granulocyte Absolute 0.04 K/mm3 (0.00-0.031); Immature Granulocyte Percent A 0.7 % (0-0.5); Lymphocytes Absolute Auto 1.25 K/mm3 (0.9-3.2); Lymphocytes Percent Auto 22.5 % (18.3-44.2); Mean Corpuscular HGB Conc 29.6 g/dl (32-36); Mean Corpuscular Hemoglobin 29.4 pg (26-34); Mean Corpuscular Volume 99.3 fl (80-100); Mean Platelet Volume 9.5 fl (7.4-10.4); Monocytes Absolute Auto 0.4 K/mm3 (0.1-0.6); Monocytes Percent Auto 7.9 % (2.6-8.5); Neutrophils Absolute Auto 3.8 K/mm3 (1.3-6.7); Neutrophils Percent Auto 67.8 % (45.5-73.1); Platelet Count Result 169 k/mm3 (150-375); Red Blood Count 2.72 M/mm3 (4.6-6.20); Red Cell Distribution Width 15.9 % (11.5-14.5); White Blood Count 5.6 K/mm3 (4.5-10.0)
[2021-09-18 05:42] LABS: Alanine Aminotransferase 9 U/L (6-50); Albumin Level 2.4 g/dL (3.5-5.1); Alkaline Phosphatase 66 U/L (38-126); Anion Gap 2 mmol/L (8-16); Aspartate Amino Transferase 15 U/L (17-59); Bilirubin,Total 0.1 mg/dL (0.2-1.3); Blood Urea Nitrogen 23 mg/dL (9-20); Calcium 7.7 mg/dL (8.4-10.2); Carbon Dioxide 29 mmol/L (22-30); Chloride 104 mmol/L (98-107); Estimated CRCL calculation 26 ml/min; Estimated Glomerular Filt Rate 29; Glucose 115 mg/dL (65-110); Potassium 4.2 mmol/L (3.4-5.0); Sodium 135 mmol/L (137-145)
[2021-09-18 07:35] LABS: Glucose Point of Care 114 mg/dl (65-105)
--- NOTE | 2021-09-18 08:41 | WPDANESPN ---
Anes - Prog Note Post-Op Date/Time: 09/18/21 08:41 Cardiovascular status: normal Respiratory status: normal Airway patency: baseline Mental status: baseline Post-Op hydration status: normal Vital Signs: Last Vital Signs Temp 36.2 C L 09/18/21 08:00 Pulse 67 09/18/21 08:00 Resp 20 09/18/21 08:00 BP 113/48 L 09/18/21 08:00 Pulse Ox 98 09/18/21 08:00 O2 Del Method Room Air 09/17/21 20:00 FiO2 0.21 09/17/21 09:02 Pain Score (VAS): 2 I/O: Intake & Output 09/17/21 09/18/21 09/18/21 23:59 07:59 15:59 Intake Total 480 240 Output Total 325 400 Balance 155 -400 240 Laboratory Tests 09/18/21 05:19 09/18/21 05:19 09/17/21 09/17/21 09/17/21 11:10 13:24 13:46 WBC RBC Hgb 8.3 L Hct 27.0 L MCV MCH MCHC RDW Plt Count MPV Immature Gran % (Auto) Neut % (Auto) Lymph % (Auto) [place] % (Auto) Eos % (Auto) Baso % (Auto) Lymph # (Auto) [place] # (Auto) Eos # (Auto) Baso # (Auto) Abs Immat Gran (auto) Absolute Neuts (auto) Absolute Nucleated RBC Nucleated RBC % Sodium Potassium Chloride Carbon Dioxide Anion Gap BUN Creatinine Estim Creat Clear Calc Estimated GFR Glucose POC Capillary Glucose 122 H 125 H Calcium Total Bilirubin AST ALT Alkaline Phosphatase Total Protein Albumin 09/17/21 09/17/21 09/18/21 16:20 20:37 05:19 WBC 5.6 RBC 2.72 L Hgb 8.0 L Hct 27.0 L MCV 99.3 MCH 29.4 MCHC 29.6 L RDW 15.9 H Plt Count 169 MPV 9.5 Immature Gran % (Auto) 0.7 H Neut % (Auto) 67.8 Lymph % (Auto) 22.5 [place] % (Auto) 7.9 Eos % (Auto) 0.9 Baso % (Auto) 0.2 Lymph # (Auto) 1.25 [place] # (Auto) 0.4 Eos # (Auto) 0.1 Baso # (Auto) 0.0 Abs Immat Gran (auto) 0.04 H Absolute Neuts (auto) 3.8 Absolute Nucleated RBC 0.0 Nucleated RBC % 0.0 Sodium Potassium Chloride Carbon Dioxide Anion Gap BUN Creatinine Estim Creat Clear Calc Estimated GFR Glucose POC Capillary Glucose 169 H 225 H Calcium Total Bilirubin AST ALT Alkaline Phosphatase Total Protein Albumin 09/18/21 09/18/21 05:19 07:26 WBC RBC Hgb Hct MCV MCH MCHC RDW Plt Count MPV Immature Gran % (Auto) Neut % (Auto) Lymph % (Auto) [place] % (Auto) Eos % (Auto) Baso % (Auto) Lymph # (Auto) [place] # (Auto) Eos # (Auto) Baso # (Auto) Abs Immat Gran (auto) Absolute Neuts (auto) Absolute Nucleated RBC Nucleated RBC % Sodium 135 L Potassium 4.2 Chloride 104 Carbon Dioxide 29 Anion Gap 2 L BUN 23 H Creatinine 2.20 H Estim Creat Clear Calc 26 Estimated GFR 29 L Glucose 115 H POC Capillary Glucose 114 H Calcium 7.7 L Total Bilirubin 0.1 L AST 15 L ALT 9 Alkaline Phosphatase 66 Total Protein 5.0 L Albumin 2.4 L Post-procedural complaints: none Patient Feedback: Patient satisfied with anesthetic care.
[2021-09-18] MEDS: PANTOPRAZOLE SODIUM IV 40 MG VIAL IV PUSH (08:50)
[2021-09-18] MEDS: predniSONE 20 MG TABLET 40 MG PO (08:50)
[2021-09-18] MEDS: PIOGLITAZONE HCL 30 MG TABLET PO (08:51)
[2021-09-18] MEDS: FAMOTIDINE 20 MG TABLET PO (08:51)
[2021-09-18] MEDS: carvediloL 12.5 MG TABLET PO (08:52)
[2021-09-18] MEDS: DONEPEZIL HCL 10 MG TABLET PO (08:53)
[2021-09-18] MEDS: GABAPENTIN 300 MG CAPSULE PO (08:53)
[2021-09-18] MEDS: EZETIMIBE 5 MG TABLET PO (08:53)
[2021-09-18] MEDS: FERROUS SULFATE 324 MG TABLET PO (08:53)
--- NOTE | 2021-09-18 10:38 | PM.DS ---
DS: Admitting Diagnosis Discharge Date 09/18/2021 Admitting Diagnosis Physical debility Acute proctitis DS: Discharge Diagnosis Discharge Diagnosis (1) Weakness: Code(s): R53.1 - Weakness Status: Acute Assessment and Plan: Neuro exam has been normal. No focal neurologic deficits, patient denies saddle anesthesia, loss of bladder or bowel function. denies loss of sensation to the lower extremities. He simply states when he fell his legs would not work to get him up. CT abdomen pelvis showed no acute osseous findings, chronic cystitis, rectal wall thickening and inflammation. CT head showed no acute intracranial process. Likely acute decompensation and conditioning in the setting of proctitis and acute COPD exacerbation. Will treat underlying causes. PT/OT have been consulted and are treating this patient. Patient declined home health, but would be interested in going to outpatient physical therapy. He was anxious about going home tonight without answers for his weakness. I did discuss his course of treatment and that he was anemic and we evaluated him for GI bleed with negative findings. I also discussed the proctitis that we found and treated which appears to have resolved per his colonoscopy, and also address the COPD flare we have been treating with steroids and inhalers. 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 Blood culture showed no growth today. Given patient's concerns for discharge with his weakness, will order CT lumbar spine. (2) Acute proctitis: Code(s): K62.89 - Other specified diseases of anus and rectum Status: Acute Assessment and Plan: Patient is afebrile today. His abdominal pain has resolved and he is tolerating a PO diet, but will be made NPO at midnight for colonoscopy tomorrow. Patient has been placed on empiric antibiotic therapy with Levaquin and Flagyl, which we will discontinue, as there is no current indication after colonoscopy findings. Patient has no concerns with his bowel movements at this time. GI formed a colonoscopy with no evidence of proctitis, no abnormal findings. Advised patient advanced diet as tolerated, will follow-up only if needed with GI. (3) Anemia: Code(s): D64.9 - Anemia, unspecified Status: Acute Assessment and Plan: Current hemoglobin 8.3 today, stable. His baseline appears to be around 11-12. He did receive a 1 L fluid bolus in the ER, which he tolerated well. GI has been consulted for the above problem as well as this and the plan is for colonoscopy tomorrow. Iron is low. B12/Folic Acid WNL. H&H Q6H, transfuse if Hgb less than 7. Protonix BID. Diet has been advanced by GI. (4) Elevated troponin: Code(s): R77.8 - Other specified abnormalities of plasma proteins Status: Acute Assessment and Plan: Patient remains chest pain-free. Not due to acute ischemic event. Troponin profile is flat. Likely due to the patient's history of coronary artery disease in the setting of chronic kidney disease. We have D/C'd his telemetry and he has been moved to the floor at this time. (5) Uinzq-gn-apbjxxc kidney injury: Qualifiers: Acute renal failure type: unspecified Chronic kidney disease stage: stage 3 (moderate) Chronic kidney disease stage 3 subtype: stage 3b (GFR 30-44) Qualified Code(s): N17.9 - Acute kidney failure, unspecified; N18.32 - Chronic kidney disease, stage 3b Code(s): N17.9 - Acute kidney failure, unspecified; N18.9 - Chronic kidney disease, unspecified Status: Acute Assessment and Plan: Patient's creatinine is stable from time of admission. Compared to discharge value last month it is elevated, but overall is not that far from baseline. I suspect this is may be the patient's new baseline. Will monitor urine and electrolytes, advised patient follow-up with primary care
== END 2021-09-18 11:15 | disposition home or self-care (01) | DRG 394 ==
LOC: ANHED 20:38 → ANHIMU 21:08 → ANH2MED 09-16 09:33 → ANHIMU 09-19 10:59
PROVIDERS: Internal Medicine Gastroenterology; Student in an Organized Health Care Education/Training Program; Admitting Provider Internal Medicine; Emergency Provider Emergency Medicine; PCP Family Medicine; Visit Provider Nurse Practitioner Family
PROC: 0DJD8ZZ Inspection of Lower Intestinal Tract, Via Natural or Artificial Opening Endoscopic (ICD-10-PCS; CPT 45378; principal; 2021-09-17 12:00)
DX: K62.89 Other specified diseases of anus and rectum (principal); J44.1 Chronic obstructive pulmonary disease with (acute) exacerbation; N17.9 Acute kidney failure, unspecified; I12.9 Hypertensive chronic kidney disease with stage 1 through stage 4 chronic kidney disease, or unspecified chronic kidney disease; N18.32 Chronic kidney disease, stage 3b; Z20.822 Contact with and (suspected) exposure to COVID-19; D64.9 Anemia, unspecified; E11.22 Type 2 diabetes mellitus with diabetic chronic kidney disease; E11.65 Type 2 diabetes mellitus with hyperglycemia; R13.10 Dysphagia, unspecified; E87.6 Hypokalemia; R77.8 Other specified abnormalities of plasma proteins; I25.10 Atherosclerotic heart disease of native coronary artery without angina pectoris; K21.9 Gastro-esophageal reflux disease without esophagitis; E78.5 Hyperlipidemia, unspecified; F17.210 Nicotine dependence, cigarettes, uncomplicated; Z95.1 Presence of aortocoronary bypass graft; E11.42 Type 2 diabetes mellitus with diabetic polyneuropathy
CPT/HCPCS: 36415; 70450; 71045; 72131; 74176; 80053; 81001; 82274; 82607; 82746; 82948; 83540; 83550; 83605; 83690; 83880; 84484; 85014; 85018; 85025; 85027; 85610; 85730; 86850; 86900; 86901; 87040; 87086; 87088; 87804; 93005; 94640; 96365; 96366; 96367; 96375; 96376; 97110; 97161; 97165; 97530; 99285; A9270; C9113; C9803; G0378; J0131; J1815; J1956; J2001; J2704; J7030; J7120; J7512; U0003; U0005

== ENCOUNTER 2021-10-06 22:29 | Inpatient (IN) | payer MEDICARE, MEDICAID, SELFPAY ==
--- NOTE | ~2021-10-06 | XR_ITS ---
EXAMINATION: XR chest port-a-cath/central INDICATION: Tunnel dialysis catheter placement TECHNIQUE: Portable AP chest at 1525 hours COMPARISON: 0558 hours FINDINGS: A right internal jugular dialysis catheter has been inserted which ends with its tip in the proximal right atrium. An endotracheal tube has been inserted which ends approximately 4.7 cm above the catrachito. There is increasing airspace opacity in the right lung base and stable airspace opacity o f the left lung base. Cardiomegaly is noted. The nasogastric tube is followed as far as the stomach. Its tip is beyond the inferior margin of the radiograph. No pleural effusion or pneumothorax. IMPRESSION: 1. Right internal jugular dialysis catheter ending with its tip in the proximal right atrium. No pneu mothorax. 2. Increasing right basilar airspace opacity and stable left basilar airspace opacity, consistent wit h atelectasis versus pneumonia. 3. Cardiomegaly. 4. Endotracheal and nasogastric tube insertion. Reviewed, dictated and finalized at location B. IMPRESSION: 1. Right internal jugular dialysis catheter ending with its tip in the proximal right atrium. No pneumothorax. 2. Increasing right basilar airspace opacity and stable left basilar airspace o pacity, consistent with atelectasis versus pneumonia. 3. Cardiomegaly. 4. Endotracheal and nasogastric tube insertion.
--- NOTE | ~2021-10-06 | XR_ITS ---
XR shoulder RT min 2V 10/15/2021 17:33 Indication: Chronic right shoulder pain Procedure: 4 views right shoulder Comparison: No prior studies for comparison. 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 There is superior sub luxation of the humeral head suggesting rotator cuff tear. No acute fracture or traumatic malalignmen t. 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 Reviewed, dictated and finalized at location A. 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
--- NOTE | ~2021-10-06 | CT_ITS ---
EXAMINATION: CT chest abdomen pelvis wo con DATE: 10/22/2021 17:48 INDICATION: sob, abdominal pain . TECHNIQUE: Computed tomography (CT) of the chest, abdomen, and pelvis was performed without intraveno us contrast. Automated exposure control and iterative reconstruction technique were employed. The dos e-length product was 1003.60 mGy-cm. COMPARISON: 10/07/2021. FINDINGS: Thoracic aorta: Heavy aortic arch calcification. Lung parenchyma and airways: Patchy areas of groundglass opacity and centrilobular nodules with retic ular change. Bibasilar atelectasis. Thoracic inlet, axillae and chest wall: Prior cardiothoracic surgery, with multiple fractured sternot sher wires. Mediastinum: No mass or lymphadenopathy. Calcified right hilar node. Heart and pericardium: Normal heart size. No pericardial effusion. Coronary artery calcifications: Heavy. Pleura: Trace right pleural effusion. Thoracic bones: No acute osseous finding in the chest. ABDOMEN/PELVIS: Liver: Normal. Biliary/Gallbladder: Gallbladder is normal. No bile duct dilation. Pancreas: No mass or duct dilation. Spleen: Normal. Adrenals:Right adrenal myelolipoma Kidneys: Left renal atrophy. Simple left renal cyst. Bilateral perinephric stranding. GI tract: No small or large bowel dilation. Appendix not visualized. Significant interval improvement in the diffuse colonic wall thickening and inflammation. Residual rectal wall edema. Mesentery/Peritoneum: No ascites, mass, or free air. Retroperitoneum: No mass. Atherosclerotic abdominal aortic and/or arterial calcifications. 11 x 27 mm saccular infrarenal abdominal aortic aneurysm. Pelvis: Pelvic organs are within normal limits. Presacral stranding. Soft Tissues: Soft tissues and body wall unremarkable. Abdominopelvic bones: No acute osseous finding in the abdomen/pelvis. IMPRESSION: Pulmonary opacities may reflect resolving/evolving changes of atypical/viral infection. Persistent pr octitis, with nonspecific presacral edema. Otherwise, considerable interval improvement in the previo usly described pancolitis. Reviewed, dictated and finalized at location K. IMPRESSION: Pulmonary opacities may reflect resolving/evolving changes of atypical/viral in fection. Persistent proctitis, with nonspecific presacral edema. Otherwise, con siderable interval improvement in the previously described pancolitis.
--- NOTE | ~2021-10-06 | XR_ITS ---
EXAMINATION: XR chest 1V portable INDICATION: Shortness of breath, volume overload TECHNIQUE: Portable AP chest at 0558 hours COMPARISON: 10/08/2021 FINDINGS: A focal airspace opacity has developed in the right lung base. There are persistent but imp roving opacities of the left lung base. No pleural effusion or pneumothorax. Cardiomegaly is noted. Fran farley sternotomy wires and mediastinal surgical clips are seen, likely from prior coronary artery byp ass grafting. IMPRESSION: 1. New focal airspace opacity of the right lung base and improving left basilar airspace opacities, c onsistent with atelectasis versus pneumonia. 2. Cardiomegaly. Reviewed, dictated and finalized at location B. IMPRESSION: 1. New focal airspace opacity of the right lung base and improving left basilar airspace opacities, consistent with atelectasis versus pneumonia. 2. Cardiomegaly.
--- NOTE | ~2021-10-06 | XR_ITS ---
EXAMINATION: XR chest 1V portable DATE: 10/10/2021 05:36 INDICATION: Respiratory failure TECHNIQUE: frontal view of the chest was obtained. COMPARISON: Chest radiograph dated 10/09/2021 FINDINGS: Endotracheal tube tip 4.6 cm above the catrachito. Nasogastric tube extends below the left hemidiaphragm with distal tip collimated off the study. Large-bore dual-lumen right internal jugular central venou s catheter with distal tip at the superior cavoatrial junction. Persistent patchy airspace opacities in the bilateral lower lung zones. The previously seen periphera l Evelyn B-lines at the right lower lung zone have resolved suggesting improving pulmonary edema. No pneumothorax or definitive pleural effusion. Cardiomegaly. Median sternotomy wires and mediastinal al rgical clips are seen, likely from prior coronary artery bypass grafting. Severe right glenohumeral o steoarthritis. IMPRESSION: 1. Unchanged patchy airspace opacities in the bilateral lower lung zones which could represent atelec tasis or pneumonia. 2. Cardiomegaly with resolution of prior pulmonary edema. Reviewed, dictated and finalized at location A. IMPRESSION: 1. Unchanged patchy airspace opacities in the bilateral lower lung zones which could represent atelectasis or pneumonia. 2. Cardiomegaly with resolution of prior pulmonary edema.
--- NOTE | ~2021-10-06 | XR_ITS ---
XR chest 1V portable DATE: 10/20/2021 00:42 INDICATION: Chest pain TECHNIQUE: Portable upright AP chest on 10/20/2021 at 0032 hours COMPARISON: 10/15/2021 portable AP chest at 1718 hours FINDINGS: Right internal jugular catheter tip is situated near the superior cavoatrial junction. Cardiomegaly. Aortic calcification. There is persistent relatively stable patchy infiltrate in the left lower lobe primarily, retrocardia c area. There is improvement of the patchy infiltrate in the right lower lung since 10/15/2021. Status post sternotomy. Osteopenia. Right rotator cuff atrophy. IMPRESSION: Persistent prominent left lower lobe infiltrate and mild improvement of right lower lung infiltrate since 10/15/2021 Reviewed, dictated and finalized at location A. IMPRESSION: Persistent prominent left lower lobe infiltrate and mild improvemen t of right lower lung infiltrate since 10/15/2021
--- NOTE | ~2021-10-06 | US_ITS ---
EXAMINATION: US venous doppler [facility] DATE: 10/08/2021 10:13 INDICATION: Shortness of breath. Localized superficial swelling at the lower extremities. TECHNIQUE: Grayscale ultrasound images without and with compression and Doppler ultrasound images of the bilateral lower extremity veins were obtained. COMPARISON: None. FINDINGS: There is nonocclusive thrombus in the proximal aspect of one of the paired right posterior tibial vei ns at the right calf. The second right posterior tibial vein remains patent. The visualized portions of right common femoral vein, profunda (deep) femoral vein, femoral vein, popliteal vein, peroneal ve ins, gastrocnemius vein and greater saphenous vein outflow are patent. The visualized portions of left common femoral vein, profunda femoral vein, femoral vein, popliteal v ein, posterior tibial veins, peroneal veins, gastrocnemius vein and greater saphenous vein outflow ar e patent. IMPRESSION: 1. Small amount of right sided [id number] deep venous thrombosis at the proximal aspect of one o f the paired posterior tibial veins at the right calf. 2. No deep venous necrosis in the left lower limb. Reviewed, dictated and finalized at location A. IMPRESSION: 1. Small amount of right sided [id number] deep venous thrombosis at the pr oximal aspect of one of the paired posterior tibial veins at the right calf. 2. No deep venous necrosis in the left lower limb.
--- NOTE | ~2021-10-06 | XR_ITS ---
EXAMINATION: XR chest 1V portable DATE: 10/08/2021 05:39 INDICATION: Shortness of breath TECHNIQUE: frontal view of the chest was obtained. COMPARISON: Chest radiograph dated 10/06/[address] dated 10/07/2021 FINDINGS: Unchanged patchy airspace opacities in the left lower lung zone. No pulmonary edema, pleural effusion or pneumothorax. Cardiomegaly. Median sternotomy wires and mediastinal surgical clips are seen, like ly from prior coronary artery bypass grafting. IMPRESSION: 1. Persistent patchy airspace opacity left lower lung zone consistent with pneumonia. Reviewed, dictated and finalized at location A. IMPRESSION: 1. Persistent patchy airspace opacity left lower lung zone consistent with pneu monia.
--- NOTE | ~2021-10-06 | XR_ITS ---
EXAMINATION: XR chest 1V portable DATE: 10/12/2021 08:45 INDICATION: Respiratory distress TECHNIQUE: frontal view of the chest was obtained. COMPARISON: Chest radiograph dated 10/11/21 FINDINGS: Slight improvement in focal airspace opacities in the bilateral lower lung zones. No pleural effusion or pneumothorax. Large-bore dual-lumen right internal jugular central venous catheter with distal ti p at the superior cavoatrial junction. Cardiac mediastinal silhouette is within normal limits for AP technique. Median sternotomy wires and mediastinal surgical clips are seen, likely from prior coronar y artery bypass grafting. There is a 3 mm step-off along the articular surface of the right humeral h ead with differential including either avascular necrosis with collapse of a portion of the central a rticular surface or more likely a reverse Hill-Sachs fracture deformity related to prior posterior gl enohumeral dislocation. IMPRESSION: 1. Slight improvement in airspace opacities in the bilateral lower lung zones consistent with pneumon ia or atelectasis. 2. Abnormal cortical contour to the articular surface of the right humeral head which could represent either a reversal Sachs fracture deformity related to prior posterior glenohumeral dislocation or av ascular necrosis and collapse of a portion of the articular surface which has developed since chest r adiograph dated 07/28/2021. Consider dedicated right shoulder radiographs for further evaluation. Reviewed, dictated and finalized at location A. IMPRESSION: 1. Slight improvement in airspace opacities in the bilateral lower lung zones c onsistent with pneumonia or atelectasis. 2. Abnormal cortical contour to the articular surface of the right humeral head which could represent either a reversal Sachs fracture deformity related to pr ior posterior glenohumeral dislocation or avascular necrosis and collapse of a portion of the articular surface which has developed since chest radiograph raphael ed 07/28/2021. Consider dedicated right shoulder radiographs for further evaluat ion.
--- NOTE | ~2021-10-06 | XR_ITS ---
EXAMINATION: XR chest 1V portable DATE: 10/11/2021 06:23 INDICATION: Respiratory failure TECHNIQUE: frontal view of the chest was obtained. COMPARISON: Chest radiograph dated 10/10/2021 FINDINGS: Large-bore dual-lumen right internal jugular central venous catheter with distal tip at the superior cavoatrial junction. Persistent airspace opacities in the bilateral lower lung zones. No pneumothorax or definitive pleural effusion. Cardiomegaly. Median sternotomy wires and mediastinal surgical clips are seen, likely from prior coronary artery bypass grafting. IMPRESSION: 1. Persistent airspace opacities in the bilateral lower lung zones which could represent atelectasis or pneumonia. 2. Cardiomegaly. Reviewed, dictated and finalized at location A.
--- NOTE | ~2021-10-06 | XR_ITS ---
XR abdomen/kub 1V DATE: 10/07/2021 01:02 INDICATION: Diarrhea TECHNIQUE: Portable supine AP views COMPARISON: 11/02/2021 portable supine AP chest 10/2021 CT abdomen pelvis noncontrast examination FINDINGS: No bowel obstruction is evident. The psoas shadows are intact. No visceromegaly is noted. Patchy left lower lobe infiltrate suggesting pneumonia Status post sternotomy. Degenerative changes of the thoracic and lumbar spine. IMPRESSION: Nonspecific abdomen Left lower lobe patchy infiltrate suggesting pneumonia Reviewed, dictated and finalized at Location A. Reviewed, dictated and finalized at location A.
--- NOTE | ~2021-10-06 | US_ITS ---
EXAMINATION: US renal BI DATE: 10/08/2021 10:12 INDICATION: Acute kidney injury TECHNIQUE: Multiple grayscale and Doppler ultrasound images of the kidneys were obtained. COMPARISON: CT from yesterday FINDINGS: The right kidney measures 10.3 x 5.7 x 5.7 cm. The left kidney measures 9.6 x 5.0 x 5.4 cm and contains a 1.2 cm cyst. The kidneys demonstrate normal parenchymal echogenicity. There is no hydr onephrosis. The bladder is decompressed by a Jackson catheter. IMPRESSION: 1. Unremarkable kidneys without hydronephrosis. Reviewed, dictated and finalized at location B.
--- NOTE | ~2021-10-06 | XR_ITS ---
XR chest 1V portable 10/15/2021 17:32 Indication: Pneumonia and shortness of breath Procedure: AP portable chest Comparison: Comparison to multiple prior studies sequentially, with oldest reviewed study dated 10/2021. Findings: Stable patchy bilateral airspace disease. There are median sternotomy wires, most of which are fractured. There is a large bore central venous catheter, tip in the SVC. No pneumothorax or mariely a. Impression: 1: Stable patchy bibasilar airspace disease, compatible with pneumonia. Reviewed, dictated and finalized at location A. Impression: 1: Stable patchy bibasilar airspace disease, compatible with pneumonia.
--- NOTE | ~2021-10-06 | XR_ITS ---
EXAMINATION: XR chest 1V portable DATE: 10/13/2021 06:00 INDICATION: Respiratory failure TECHNIQUE: frontal view of the chest was obtained. COMPARISON: Chest radiograph dated 10/12/2021 FINDINGS: No significant change in airspace opacities in the bilateral lower lung zones. No pleural effusion or pneumothorax. Cardiomediastinal silhouette is normal. Median sternotomy wires and mediastinal surgic al clips are seen, likely from prior coronary artery bypass grafting. Large-bore dual-lumen right int ernal jugular central venous catheter with distal tip at the superior cavoatrial junction. Again seen are severe degenerative skeletal changes in the spine and at the right shoulder were there is partia l collapse of the articular surface as detailed on prior report. IMPRESSION: 1. No interval change in opacities in the bilateral lower lung zones consistent with pneumonia or ate lectasis. 2. Relatively recent collapse of the articular surface of the portion of the right humeral head. See prior report for further detail and consider dedicated right shoulder radiographs when clinically radha ropriate. Reviewed, dictated and finalized at location A. IMPRESSION: 1. No interval change in opacities in the bilateral lower lung zones consistent with pneumonia or atelectasis. 2. Relatively recent collapse of the articular surface of the portion of the ri ght humeral head. See prior report for further detail and consider dedicated ri t shoulder radiographs when clinically appropriate.
--- NOTE | ~2021-10-06 | XR_ITS ---
EXAMINATION: XR fl guide central line place DATE: 10/09/2021 14:00 CDT INDICATION: Placement tunneled dialysis catheter under fluoroscopy . TECHNIQUE: 1 fluoroscopic images of the right lower neck were obtained during fluoroscopy guided cent ral line placement performed by the surgeon. I was not present in the operating room. Fluoroscopy exp osure time was 106.4 seconds. Cumulative dose was 24.20 mGy. COMPARISON: None FINDINGS: The single image provided shows the superior extent of the dialysis catheter as it curves into the ri ght internal jugular. IMPRESSION: Fluoroscopic documentation of central line placement. Please refer to the operative note for complete procedural details. Reviewed, dictated and finalized at location K. IMPRESSION: Fluoroscopic documentation of central line placement. Please refer to the opera tive note for complete procedural details.
--- NOTE | ~2021-10-06 | XR_ITS ---
EXAM: XR abdomen NG/feed tube insert DATE: 10/09/2021 15:45 HISTORY: og placement . COMPARISON: None available. FINDINGS: Fractured inferior sternotomy wires. Mediastinal clips. Atelectasis/consolidation in the l les bases. NG tube, tip in the stomach side port at the GE junction. Normal bowel gas pattern. No org anomegaly. No abnormal abdominal calcification. Regional bones and soft tissues normal for age. IMPRESSION: NG tube side port terminates at the GE junction, consider 4 cm advancement. Reviewed, dictated and finalized at location K. IMPRESSION: NG tube side port terminates at the GE junction, consider 4 cm adva ncement.
--- NOTE | ~2021-10-06 | XR_ITS ---
XR chest 1V portable DATE: 10/06/2021 23:00 INDICATION: Covid exposure. Shortness of breath, weakness. TECHNIQUE: Portable AP chest on 10/06/2021 at 2256 hours COMPARISON: 09/14/2021 portable AP chest at 1829 hours FINDINGS: Status post sternotomy. Cardiomegaly. There is prominent patchy infiltrate in the left lower lung, predominantly lower lobe, suggesting pne umonia. The right lung appears clear of infiltrate. The left costophrenic angle appears mildly blunte d which may be due to pleural effusion. No pneumothorax. Dextroscoliosis and degenerative spurring of the thoracic spine. Diffuse osteopenia. IMPRESSION: Prominent left lower lobe infiltrate likely secondary to pneumonia; recommend continued r adiographic follow-up to ensure complete clearing in order to exclude any possible obstructing endobr onchial lesion. Reviewed, dictated and finalized at location A. IMPRESSION: Prominent left lower lobe infiltrate likely secondary to pneumonia; recommend continued radiographic follow-up to ensure complete clearing in orde r to exclude any possible obstructing endobronchial lesion.
--- NOTE | ~2021-10-06 | US_ITS ---
US abdomen limited INDICATION: Distended gallbladder on CT. Pancolitis. PROCEDURE: Realtime right upper abdominal ultrasound. COMPARISON: CT dated 10/07/2021 FINDINGS: The pancreas is normal without focal mass or pancreatic ductal dilation. Liver echotexture is normal without focal mass or intrahepatic biliary dilatation. There is normal directional flow i n the portal vein. There is a thickened tubular structure in the upper abdomen overlying the region o f the pancreas, likely thickened: As seen on prior CT. The pancreas is not well visualized. There is a small amount of ascites surrounding the liver margin. There is mild intrahepatic biliary dilatation . Portal vein is mildly dilated measuring 1.3 cm suggesting portal hypertension. There is gallbladder wall thickening measuring 4 mm. Trace pericholecystic fluid. No gallstones. Com mon bile duct measures 5.5 mm. No sonographic Snell's sign. IMPRESSION: 1: Gallbladder wall thickening with trace pericholecystic fluid. This could indicate interstitial rodrigo ma, chronic liver disease or chronic cholecystitis. 2: Mildly dilated portal vein suggesting portal hypertension. Mild intrahepatic biliary dilatation. 3: Thickened tubular structure upper abdomen most likely thickened: As seen on prior CT. Reviewed, dictated and finalized at location A. IMPRESSION: 1: Gallbladder wall thickening with trace pericholecystic fluid. This could ind icate interstitial edema, chronic liver disease or chronic cholecystitis. 2: Mildly dilated portal vein suggesting portal hypertension. Mild intrahepatic biliary dilatation. 3: Thickened tubular structure upper abdomen most likely thickened: As seen on prior CT.
--- NOTE | ~2021-10-06 | CT_ITS ---
EXAMINATION: CT abdomen pelvis wo con DATE: 10/07/2021 01:40 INDICATION: Diarrhea. Especially C. difficile. TECHNIQUE: Computed tomography (CT) of the abdomen and pelvis was performed without intravenous contr ast. Automated exposure control and iterative reconstruction technique were employed. Exam dose: 904 .25 mGy-cm total exam DLP. COMPARISON: 09/14/2021 CT abdomen pelvis 10/07/2021 KUB FINDINGS: There is prominent patchy consolidating left lower lobe pulmonary infiltrate. The right isacc g base is clear. Cardiomegaly. No pericardial or pleural effusion. Status post sternotomy. The gallbladder is distended. The gallbladder wall does not appear thickened. No gallstones are detec crissy by CT. Consider gallbladder ultrasound for further evaluation. No hepatic, splenic or pancreatic space-occupying mass lesion. No bile duct or pancreatic duct dilata tion. Normal splenic size. Normal morphology of the adrenal glands. No right renal mass lesion or right urinary tract calculus or hydroureteronephrosis. Prominent left renal atrophy. 1 cm probable left renal cyst. No left urinary tract calculus or hydrou reteronephrosis. The urinary bladder is completely evacuated, limiting evaluation. The bladder wall a ppears thickened. There are prostate calcifications. There is extensive calcification of the abdominal aorta and at the origins of the celiac and superior mesenteric arteries as well as bilateral renal artery calcifications. Up to 3.5 cm infrarenal abdomi nal aortic aneurysm. No intraperitoneal or retroperitoneal or pelvic mass lesion or adenopathy or asc ites. There is prominent thickening of the wall of the entire colon with pericolic fat stranding, consisten t with brandt colitis. Consider ischemic, infectious or inflammatory colitis. No abscess or intraperitoneal free air is detected. Prominent degenerative changes of the lower thoracic and lumbar spine. There is mildly severe degener ative disc disease of the lumbar spine and severe degenerative disc disease at L5-S1 7 mm associated mild retrolisthesis at L1-2, L2-3 and L5-S1. There is prominent degenerative change at the apophyseal joints with associated grade 1 anterolisthes is at L4-5. Bilateral hip osteoarthritis. No suspicious osteolytic or osteoblastic lesions are noted. IMPRESSION: Pancolitis Left lower lobe pneumonia Cardiomegaly Distended gallbladder; consider gallbladder ultrasound examination Left renal atrophy 1 cm left renal cyst Up to 3.5 cm infrarenal abdominal aortic aneurysm Reviewed, dictated and finalized at [facility]. Reviewed, dictated and finalized at location A.
[2021-10-06 22:21] VITALS: BP 102/52; PULSE 63; RESP 26; TEMP 37.9; O2SAT 97
--- NOTE | 2021-10-06 22:34 | ED.SOB ---
HPI - SOB/Dyspnea General Chief Complaint: Shortness of Breath/Dyspnea <Elizabeth Silva PA-C - Last Filed: 10/07/21 02:59> Stated Complaint: weakness/dyspnea/poss covid <Elizabeth Silva PA-C - Last Filed: 10/07/21 02:59> Time Seen by Provider: 10/06/21 22:30 <SELWYN Mckinnon Last Filed: 10/07/21 02:59> Source: patient and EMS <SELWYN Mckinnon Last Filed: 10/07/21 02:59> Mode of arrival: EMS <SELWYN Mckinnon Last Filed: 10/07/21 02:59> Limitations: altered mental status <SELWYN Mckinnon Last Filed: 10/07/21 02:59> History of Present Illness HPI Narrative: This is a 81 year old male that presents to the ER for generalized weakness. Family called 911 due to decreased mentation. Patient reports he has been feeling unwell for a couple of days. He significant other is currently hospitalized with COVID. Reports shortness of breath, fever and cough. <SELWYN Mckinnon Last Filed: 10/07/21 02:59> Related Data Home Medications: Home Medications Medication Instructions Recorded Confirmed carvedilol 12.5 mg tablet 12.5 mg PO BID 10/11/19 10/07/21 donepezil 10 mg tablet 10 mg PO DAILY 10/11/19 10/07/21 ezetimibe 10 mg tablet 5 mg PO DAILY 10/11/19 10/07/21 famotidine 20 mg tablet 40 mg PO BID 10/11/19 10/07/21 furosemide 20 mg tablet 20 mg PO DAILY 10/11/19 10/07/21 gabapentin 300 mg capsule 300 mg PO BID 10/11/19 10/07/21 pioglitazone 30 mg tablet 30 mg PO DAILY 10/11/19 10/07/21 rosuvastatin 40 mg tablet 20 mg PO HS 10/11/19 10/07/21 sitagliptin 100 mg tablet (Januvia) 100 mg PO DAILY 10/11/19 10/07/21 albuterol sulfate 2.5 mg/3 mL 2.5 mg inhalation BID 07/28/21 10/07/21 (0.083 %) solution for nebulization aspirin 81 mg tablet 81 mg PO HS 07/28/21 10/07/21 budesonide 160 mcg-glycopyr 9 2 inh inhalation BID 07/28/21 10/07/21 mcg-formot 4.8 mcg/actuation HFA inhaler (Breztri Aerosphere) hydrocodone 5 mg-acetaminophen 325 2 tablet PO Q4H PRN pain 07/28/21 10/07/21 mg tablet ferrous sulfate 325 mg (65 mg 1 tablet PO DAILY 09/15/21 10/07/21 iron) tablet <SELWYN Mckinnon Last Filed: 10/07/21 02:59> Allergies/Adverse Reactions: Allergies Allergy/AdvReac Type Severity Reaction Status Date / Time morphine Allergy Intermediate Itching Verified 10/06/21 22:49 Penicillins Allergy Mild Unknown Verified 10/06/21 22:49 <Elizabeth Silva PA-C - Last Filed: 10/07/21 02:59> Review of Systems Review of Systems: ROS unobtainable: Yes unobtainable due to mental status <SELWYN Mckinnon Last Filed: 10/07/21 02:59> [facility] Past Medical History Medical History: Medical History (Updated 10/07/21 @ 10:34 by Susanna Oneil APRN) COPD (chronic obstructive pulmonary disease) Coronary artery disease Dementia Diabetes type 2, controlled Diabetic peripheral neuropathy Dysphagia With history absent gag reflex with failed modified barium swallow October 2018. Patient refused G-tube at the time. GERD (gastroesophageal reflux disease) History of left heart catheterization Hyperlipidemia Hypertension Hyponatremia 132-136 Normal echocardiogram October 2018 Orthostatic hypotension Stage 3b chronic kidney disease Secondary to diabetes, hypertension, vascular disease and age <SELWYN Mckinnon Last Filed: 10/07/21 02:59> Surgical History Surgical History: Surgical History (Updated 09/17/21 @ 07:55 by Yovani Mcneill DO) H/O inguinal hernia repair Hx of CABG 3 vessel, 2000 <SELWYN Mckinnon Last Filed: 10/07/21 02:59> Family History Family History: Family History Mother Breast cancer COPD (chronic obstructive pulmonary disease) Hypertension Sibling Malignant neoplasm of prostate COPD (chronic obstructive pulmonary disease) Sister Hypertension Acute myocardial infarction Brother Lung cancer Sister <Em
[2021-10-06 22:35] VITALS: PULSE 97; RESP 22
[2021-10-06] MEDS: IPRATROPIUM BR 0.02% INH SOLN 0.5 MG/2.5 ML VIAL INHALATION (22:35)
[2021-10-06] MEDS: ALBUTEROL SULFATE NEB 2.5 MG/3 ML INH INHALATION (22:35)
--- NOTE | 2021-10-06 22:37 | ECG_ITS ---
Measurements Intervals [place] Rate: 60 P: 85 ID: [id number] QRS: -26 QRSD: 119 T: 73 QT: 504 QTc: 504 Interpretive Statements SINUS RHYTHM INTRAVENTRICULAR CONDUCTION DELAY DELAYED PRECORDIAL R/S TRANSITION PROLONGED QT INTERVAL BASELINE ARTIFACT- I, II, III, AVR, AVL, AVF, V3-V6 ABNORMAL ECG Electronically Signed On 10-07-2021 7:36:43 CDT by Mark Moss D.O.
[2021-10-06 22:41] LABS: Alveolar/Arterial O2 Gradient 28.9 mmHg; Base Excess ABG 1.3 mEq/l (+/-2.0); Fractional Inspired Oxygen 21 %; HCO3 ABG 26.5 mEq/l (22.0-26.0); Oxygen Content ABG 12.7 %vol (16.0-22.0); Oxygen Saturation ABG 93.2 % (95.0-100.0); Oxyhemoglobin 91.9 % THb (90.0-100.0); PCO2 ABG 44.7 mmHg (35.0-45.0); PO2 ABG 67.3 mmHg (80.0-100.0); Total Hemoglobin 9.8 g/dL (12.0-18.0); pH ABG 7.391 (7.350-7.450)
[2021-10-06 22:42] LABS: Device ROOM AIR; Modified Allen's Test Unable to perform; Site Drawn RIGHT RADIAL
[2021-10-06] MEDS: methylPREDNISolone SOD SUCC 125 MG VIAL IV PUSH (22:49)
[2021-10-06 22:58] VITALS: PULSE 61; RESP 20
[2021-10-06 23:03] LABS: Basophils Percent Auto 0.2 % (0.2-1.2); Eosinophils Percent Auto 0.1 % (0-4.4); Hematocrit 29.8 % (42.0-52.0); Hemoglobin 9.2 g/dL (14.0-18.0); Immature Granulocyte Absolute 0.08 K/mm3 (0.00-0.031); Immature Granulocyte Percent A 0.9 % (0-0.5); Immature Platelet Fraction Pct 8.8 % (0.9-11.2); Lymphocytes Absolute Auto 0.55 K/mm3 (0.9-3.2); Lymphocytes Percent Auto 6.4 % (18.3-44.2); Mean Corpuscular HGB Conc 30.9 g/dl (32-36); Mean Corpuscular Hemoglobin 29.6 pg (26-34); Mean Corpuscular Volume 95.8 fl (80-100); Mean Platelet Volume 11.7 fl (7.4-10.4); Monocytes Absolute Auto 0.4 K/mm3 (0.1-0.6); Monocytes Percent Auto 4.6 % (2.6-8.5); Neutrophils Absolute Auto 7.5 K/mm3 (1.3-6.7); Neutrophils Percent Auto 87.8 % (45.5-73.1); Platelet Count Result 109 k/mm3 (150-375); Red Blood Count 3.11 M/mm3 (4.6-6.20); Red Cell Distribution Width 16.1 % (11.5-14.5); White Blood Count 8.5 K/mm3 (4.5-10.0)
[2021-10-06 23:10] VITALS: BP 95/43; PULSE 63; RESP 21; O2SAT 96
[2021-10-06 23:11] LABS: Lactic Acid Reflex 0.9 mmol/L (0.7-2.0)
[2021-10-06 23:19] VITALS: TEMP 37.3
[2021-10-06 23:21] LABS: Alanine Aminotransferase 16 U/L (6-50); Albumin Level 2.7 g/dL (3.5-5.1); Alkaline Phosphatase 91 U/L (38-126); Anion Gap 6 mmol/L (8-16); Aspartate Amino Transferase 43 U/L (17-59); Bilirubin,Total 0.5 mg/dL (0.2-1.3); Blood Urea Nitrogen 65 mg/dL (9-20); Carbon Dioxide 30 mmol/L (22-30); Chloride 98 mmol/L (98-107); Estimated CRCL calculation 7 ml/min; Estimated Glomerular Filt Rate 7; Glucose 140 mg/dL (65-110); NT Pro B Type Natriuretic Pept 22000 pg/mL (5-100); Potassium 2.7 mmol/L (3.4-5.0); Sodium 134 mmol/L (137-145)
[2021-10-06 23:26] LABS: CRP 14.5 mg/dL (<1.0)
[2021-10-06] MEDS: SODIUM CHLORIDE 0.9% IV 1,000 ML 999 ML IV CONT (23:29)
[2021-10-06 23:31] LABS: Hypochromasia 1+ (NORMAL); Ovalocytes 1+ (NORMAL); Platelet Estimate Decreased (Adequate)
[2021-10-06 23:32] LABS: Lactate Dehydrogenase 862 U/L (313-618)
[2021-10-06 23:36] LABS: INR 1.1; Prothrombin Time 13.7 Seconds (11.1-14.7)
[2021-10-06 23:37] LABS: Partial Thromboplastin Time 32.2 SECONDS (22.3-36.8)
[2021-10-06] MEDS: POTASSIUM CHLORIDE INJ 40 MEQ in SODIUM CHLORIDE 0.9% IV 500 ML 130 MEQ IVPB (23:37)
[2021-10-06 23:40] VITALS: BP 91/76; PULSE 54; RESP 20; O2SAT 97
[2021-10-06 23:48] LABS: SARS-CoV-2 RNA PCR Positive
--- NOTE | 2021-10-06 23:58 | PM.IMHP ---
H&P: HPI History of Present Illness Date/Time: 10/06/21 23:58 Chief Complaint: Altered mental status Narrative: this is a 81-year-old male with past medical history significant for chronic kidney disease, type 2 diabetes mellitus, peripheral neuropathy, dyslipidemia, coronary artery disease, dementia, gastroesophageal reflux disease, orthostatic hypotension. patient was brought to the emergency room for evaluation due to altered mental status family call 911. According to medical records patient had been having diarrhea and poor per orally intake for several days. Patient is unable to give much history due to his acute altered mental status with confusion and acute illness. Preliminary workup was significant for chemistry panel creatinine of 7 BUN 64 hemoglobin 8.5, hematocrit 28, urine analysis was significant for WBCs in the 16-20 range with numerous RBCs in the 21-50 range. in emergency room patient was found to be in respiratory distress and wheezing require BiPAP support. Patient tested positive for COVID and his tested positive for C difficile and was brought to the emergency room as well. Patient has been admitted for further evaluation, management and treatment. Review of Systems Review of Systems: ROS unobtainable: Yes unobtainable due to medical condition ( Patient is on BiPAP.) and unobtainable due to mental status PMFSH Past Medical History Medical History (Updated 10/07/21 @ 10:34 by Susanna Oneil APRN) COPD (chronic obstructive pulmonary disease) Coronary artery disease Dementia Diabetes type 2, controlled Diabetic peripheral neuropathy Dysphagia With history absent gag reflex with failed modified barium swallow October 2018. Patient refused G-tube at the time. GERD (gastroesophageal reflux disease) History of left heart catheterization Hyperlipidemia Hypertension Hyponatremia 132-136 Normal echocardiogram October 2018 Orthostatic hypotension Stage 3b chronic kidney disease Secondary to diabetes, hypertension, vascular disease and age Surgical History Surgical History (Updated 09/17/21 @ 07:55 by Yovani Mcneill DO) H/O inguinal hernia repair Hx of CABG 3 vessel, 2000 Family History Family History Mother Breast cancer COPD (chronic obstructive pulmonary disease) Hypertension Sibling Malignant neoplasm of prostate COPD (chronic obstructive pulmonary disease) Sister Hypertension Acute myocardial infarction Brother Lung cancer Sister Social History Social History (Updated 09/15/21 @ 02:45 by Lucia Le DO) Social History: He has a greater than 100 pack per year smoking history. He smoked 3 packs of cigarettes per day from the time he was 13 until is CABG in 2002. He is down to smoking a few cigarettes cigarettes a week. He has live with the same woman for approximately 30 years but states that he is not . He has 2 daughters 1 of which he is estranged from. Code status: Full code Surrogate decision maker: Sona Escobedo (significant other) Smoking packs per day: 3 Smoking cigarettes per day: 60.0 Years smoked: 48 Smoking pack-years: 144.00 Smoking status: Former smoker Tobacco type: cigarettes Second hand tobacco smoke exposure: Yes Alcohol intake: former Alcohol use details: DRANK EVERYDAY QUIT- 1971 Substance use: never Other substance usage details: Quit drinking 1971 Additional living arrangements comments: He is . 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 Gender identity (if verbalized by the patient): Male Spiritual care concerns: No Meds Home Medications and Allergies Home Medications Medication Instructions Recorded Confirmed Type carvedilol 12.5 mg tablet 12.5 mg PO BID 10/11/19 10/07/21 History donepezil 10 mg tablet 10 mg PO DAILY 10/11/19 10/07/21 H
[2021-10-07] VITALS (27 sets, daily range): BP systolic 91–123; BP diastolic 43–64; PULSE 52–68; RESP 16–20; TEMP 36.2–36.9; O2SAT 96–100; BMI 27.7
--- NOTE | 2021-10-07 | ECHO_ITS ---
Patient Info Name: Miky Fuentes Age: 81 years : 1940 Gender: Male Ht: 67 in Wt: 177 lbs BSA: 1.97 m2 HR: 53 bpm BP: 97 / 64 mmHg Exam Date: 10/07/2021 11:11 AM Exam Location: [facility] Patient Status: Inpatient Admit Date: 10/07/2021 Staff Ordering Physician: Leonard Downs MD [employer] Actuary: Juan Luis Snell, CLAUDIA, RT Attending Provider: Leonard Downs MD Referring Physician: Himanshu MARCELINO; Exam Type: CA echo doppler color flow Study Info Indications R06.02 - Shortness of breath Complete two-dimensional, color flow and Doppler transthoracic echocardiogram is performed. Strain analysis performed. Summary 1. Complete two-dimensional, color flow and Doppler transthoracic echocardiogram is performed. 2. Left ventricular chamber dimension is normal. 3. Left ventricular systolic function is normal, estimated at 55-60%. 4. There is no increased left ventricular wall thickness. 5. Left ventricular septal wall motion is normal. 6. Right ventricular chamber dimension is normal. 7. Right ventricular systolic function is normal. 8. There is mild mitral valve regurgitation. 9. No pulmonary hypertension, estimated pulmonary arterial systolic pressure is 34 mmHg. Left Ventricle Left ventricular chamber dimension is normal. Left ventricular systolic function is normal, estimated at 55-60%. There is no increased left ventricular wall thickness. Left ventricular septal wall motion is normal. The left ventricular diastolic function is normal. Right Ventricle Right ventricular chamber dimension is normal. Right ventricular systolic function is normal. Left Atria Left atrial chamber dimension is normal. Right Atria Right atrial chamber dimension is normal. Aortic Valve The aortic valve is trileaflet. There is no aortic valve sclerosis. There is no aortic valve stenosis. There is no aortic valve regurgitation. Pulmonic Valve The pulmonic valve is normal. There is no pulmonic valve stenosis. There is no pulmonic regurgitation. Mitral Valve The mitral valve has normal leaflets. There is no mitral valve stenosis. There is mild mitral valve regurgitation. Tricuspid Valve The tricuspid valve leaflets are normal. There is no significant tricuspid valve stenosis. There is no tricuspid valve regurgitation. No pulmonary hypertension, estimated pulmonary arterial systolic pressure is 34 mmHg. Pericardium/Pleural The pericardium appears normal. There is no pericardial effusion. Aorta The aortic root size at the sinus of Valsalva is normal. The prox ascending aorta size is normal. Left Ventricular Outflow Tract Name Value Normal LVOT 2D LVOT Diameter 2.1 cm LVOT Doppler LVOT Peak Gradient 3 mmHg LVOT Mean Gradient 2 mmHg LVOT VTI 20 cm LVOT VTI/AV VTI Ratio 0.5 LVOT Stroke Volume 65 ml LVOT CO 3.6 l/min LVOT CI 1.8 l/min/m2 Mitral Valve
[2021-10-07 00:21] LABS: Magnesium 2.2 mg/dL (1.6-2.3)
[2021-10-07] MEDS: IPRATROPIUM BR 0.02% INH SOLN 0.5 MG/2.5 ML VIAL INHALATION (00:31)
[2021-10-07] MEDS: ALBUTEROL SULFATE NEB 2.5 MG/3 ML INH 5 MG INHALATION (00:31)
--- NOTE | 2021-10-07 00:49 | PC.NURSE ---
Recieved call from pts nephew (milton farias). Updated on pts POC. Can be reached at [phone].
--- NOTE | 2021-10-07 03:12 | PC.NURSE ---
This patient, Miky Fuentes, was admitted to IMU Room 203-01 on 10/07/21 at 0140. Patient/family oriented to hospital policies and general routines including ID bracelet, bed and alarms, visiting hours, pain management, procedures, bathroom and other care routines, personal items, smoking policy, room service/diet, and visiting hours. Information on how to activate the Rapid Response Team has been discussed. Patient/Family are encouraged to report perceived risks to care and to ask questions if they do not understand what they are told or what they should do.
[2021-10-07 04:10] LABS: Appearance Urine Slightly Cloudy (Clear); Bilirubin Urine 2+ (Negative); Blood Urine 2+ (Negative); Color Urine Amber (Yellow); Glucose Urine UA Trace mg/dL (Negative); Ketones Urine Trace mg/dL (Negative); Leukocyte Esterase Ur Negative LEU/UL (Negative); Nitrate Urine Negative (Negative); Protein Urine 2+ mg/dL (Negative); Specific Grav Ur >= 1.030 (1.001-1.035); Urobilinogen Urine 0.2 mg/dL (<2.0)
[2021-10-07 04:15] LABS: Bacteria Urine Trace /hpf; RBC Urine 21-50 /hpf (0-2); Squamous Epithelial Cell Urine Many /hpf (Few); Transitional Epi Cells Urine Rare /hpf (None Seen); WBC Urine 16-20 /hpf
[2021-10-07 04:16] LABS: Add Urine Microscopic? YES
[2021-10-07 04:31] LABS: Hematocrit 28.9 % (42.0-52.0); Hemoglobin 8.8 g/dL (14.0-18.0); Immature Granulocyte Absolute 0.06 K/mm3 (0.00-0.031); Immature Granulocyte Percent A 0.8 % (0-0.5); Immature Platelet Fraction Pct 8.9 % (0.9-11.2); Lymphocytes Absolute Auto 0.36 K/mm3 (0.9-3.2); Lymphocytes Percent Auto 4.7 % (18.3-44.2); Mean Corpuscular HGB Conc 30.4 g/dl (32-36); Mean Corpuscular Hemoglobin 29.2 pg (26-34); Mean Platelet Volume 11.4 fl (7.4-10.4); Monocytes Absolute Auto 0.2 K/mm3 (0.1-0.6); Monocytes Percent Auto 2.4 % (2.6-8.5); Neutrophils Percent Auto 92.1 % (45.5-73.1); Platelet Count Result 95 k/mm3 (150-375); Red Blood Count 3.01 M/mm3 (4.6-6.20); Red Cell Distribution Width 16.2 % (11.5-14.5); White Blood Count 7.6 K/mm3 (4.5-10.0)
[2021-10-07 04:42] LABS: Anion Gap 9 mmol/L (8-16); Blood Urea Nitrogen 64 mg/dL (9-20); Calcium 6.6 mg/dL (8.4-10.2); Carbon Dioxide 24 mmol/L (22-30); Chloride 102 mmol/L (98-107); Estimated CRCL calculation 7 ml/min; Estimated Glomerular Filt Rate 7; Glucose 182 mg/dL (65-110); Potassium 3.2 mmol/L (3.4-5.0); Sodium 135 mmol/L (137-145)
[2021-10-07 05:01] LABS: Platelet Estimate Decreased (Adequate)
[2021-10-07 05:02] LABS: Acanthocytes 2+ (NORMAL)
[2021-10-07] MEDS: methylPREDNISolone SOD SUCC 125 MG VIAL 60 MG IV PUSH ×3 (05:56→23:50)
[2021-10-07] MEDS: ASPIRIN 81 MG ENTERIC TABLET PO ×2 (05:57→21:49)
[2021-10-07] MEDS: ROSUVASTATIN 10 MG TABLET 20 MG PO ×2 (05:57→21:48)
[2021-10-07] MEDS: FERROUS SULFATE 324 MG TABLET PO (07:58)
[2021-10-07] MEDS: GABAPENTIN 300 MG CAPSULE PO ×2 (07:58→16:31)
[2021-10-07] MEDS: DONEPEZIL HCL 10 MG TABLET PO (07:58)
[2021-10-07] MEDS: FAMOTIDINE 20 MG TABLET 40 MG PO ×2 (07:58→16:33)
--- NOTE | 2021-10-07 08:06 | PM.IMPN ---
Progress Note: A&P Assessment and Plan (1) COVID-19: Code(s): U07.1 - COVID-19 Status: Acute Assessment and Plan: Place in [facility] isolation precautions, cardiac monitoring, and continuous pulse ox Monitor serum electrolytes, CRP, Lactic acid, troponin, CBC, WBC, temperature curve and follow cultures 10/06/2021: CRP 14.5, BNP 65720 Oxygen via NC; wean as tolerated. Keep spO2 greater than 91% Hold IV abx, no leuokocytosis, if patient appears to have a bacterial pneumonia, IV abx will be initiated Consider Consulting Pulmonary if the patient has an increased oxygen demand. Patient does not wear oxygen at baseline. When appropriate start CPAP or Vapotherm to maintain oxygen saturation Pt is not a candidate for Remdesivir due to renal function receiving Solu-Medrol 60 mg q.6 hours pending emergency department consider transition to dexamethasone 6 mg daily PRN albuterol MDI If oxygen requirement increase, consider baricitinib (NIKA inhibtor) 4 mg PO daily for 14 days, or until discharge. Add Imodium for diarrhea GI prophylaxis: PPI repeat chest x-ray on 10/08/2021 (2) Acute hypoxemic respiratory failure: Code(s): J96.01 - Acute respiratory failure with hypoxia Status: Acute Assessment and Plan: 2/2 above (3) Acute kidney failure: Qualifiers: Acute renal failure type: unspecified Qualified Code(s): N17.9 - Acute kidney failure, unspecified Code(s): N17.9 - Acute kidney failure, unspecified Status: Acute Assessment and Plan: Continue to monitor renal function Consult Nephrology for further management, appreciate assistance and recommendations patient's baseline creatinine is 2.0-2.5 and BUN 23, creatinine this morning 7.3 with a BUN 64 patient will be started on aggressive IV fluid resuscitation, monitor renal function. Obtain renal ultrasound bilaterally (4) Acute hypokalemia: Code(s): E87.6 - Hypokalemia Status: Acute Assessment and Plan: Replace serum electrolytes (5) Elevated brain natriuretic peptide (BNP) level: Code(s): R79.89 - Other specified abnormal findings of blood chemistry Status: Acute Assessment and Plan: continue to monitor Patient does have an elevated BNP, however given the patient's significant ROEL and GI loss due to C diff. Patient will be started on aggressive IV fluid resuscitation with close monitoring in the step-down unit. Telemetry monitoring continuous SpO2 obtain echocardiogram consider consulting Cardiology (6) Abnormal urinalysis: Code(s): R82.90 - Unspecified abnormal findings in urine Status: Acute Assessment and Plan: no leukocytosis Pending urine culture (7) Type 2 diabetes mellitus with hyperglycemia, without long-term current use of insulin: Code(s): E11.65 - Type 2 diabetes mellitus with hyperglycemia Status: Acute Assessment and Plan: Insulin Lispro sliding scale, Accu-checks qAc and HS and Hold oral hypoglycemics HgbA1c 6.3% in July 30, 2021 (8) Physical debility: Code(s): R53.81 - Other malaise Status: Acute Assessment and Plan: PT/OT eval and treat (9) C. difficile diarrhea: Code(s): A04.72 - Enterocolitis due to Clostridium difficile, not specified as recurrent Status: Acute Assessment and Plan: IV fluid resuscitation Oral vanc 125mg qid Monitor for bloody bowel movements,chest pain,SOB or dizziness/lightheadedness start banana trial Plus with meals (10) Severe protein-calorie malnutrition: Code(s): E43 - Unspecified severe protein-calorie malnutrition Status: Acute Assessment and Plan: consult registered dietitian for nutritional needs Subjective Date/time seen: 10/07/21 08:06 patient is alert person, place, time and situation. Patient reports that he started having diarrhea about 10 days ago. Patient has suffered with diarrhea and dev
[2021-10-07] MEDS: carvediloL 12.5 MG TABLET PO (08:22)
[2021-10-07 08:23] LABS: Glucose Point of Care 219 mg/dl (65-105)
[2021-10-07] MEDS: ALBUTEROL SULFATE NEB 2.5 MG/3 ML INH INHALATION ×2 (09:15→21:14)
[2021-10-07] MEDS: FLUTICASONE/UMECLIDIN/VILANTER 100-62.5-25 MCG ELLIPTA 1 PUFF INHALATION (09:15)
[2021-10-07 09:36] LABS: Toxigenic C. Diff POSITIVE (NEGATIVE)
--- NOTE | 2021-10-07 10:13 | PCPTNOTE ---
attempted PT eval 10:10; discussed pt with Jason NUNEZ- he stated pt is dehydrate, confused and not appropriate for PT eval yet;
--- NOTE | 2021-10-07 10:19 | PCOTNOTE ---
Per PT - RN advised that patient is confused and not appropriate for therapy evaluation yet. Will continue to attempt.
--- NOTE | 2021-10-07 10:32 | PM.CNNEP ---
Assessment and Plan Additional Plan 1.Miky has chronic kidney disease. His creatinine seems to run between 2 and 2.5. He has had episodes where his creatinine was high in the past and improved back to its baseline. Renal ultrasound in the past showed left renal atrophy. Other tests were not done. He does have diabetes and hypertension as well as coronary disease so probably diabetes, hypertension, and vascular disease are affecting his kidneys. He has got the 1 small kidney so may have of vascular issue there. Currently his blood pressure is not difficult to control and so it is unlikely that there is renal artery stenosis of the large artery At this point will get serology and immunofixation. 2. The patient has acute kidney injury on top of chronic. He has had diarrhea with poor intake for the last few days. I suspect that dehydration may be going on. Will check urine electrolytes. His urinalysis shows pyuria. He could have a bladder infection and possible sepsis. Blood and urine culture was ordered. He also has a positive C diff. his belly is not very tender so hopefully it is not a significant colitis other than his diarrhea. This can of course affect the kidneys as well. The patient has positive COVID. This can affect the kidneys as well. At this point will give some IV fluids. Will check urine electrolytes and a CPK. Renal ultrasound has been ordered. 3. His potassium level was low. Most likely from the diarrhea. He just got A K run. 4. Patient's sodium level is slightly low 135. This is chronic for him. His cortisol level was low before. And his blood pressure has been somewhat low and has orthostatic hypotension so will get a cortisol level and a Cortrosyn stim test if needed. 5. The patient has anemia. Will keep an eye on this. Consider Epogen if it continues to fall[place] [address]. It is unclear what the significance of this is. He does have a little bit of swelling, but his albumin is low. He has 2+ protein in the urine. Will check a quantitative urine protein. Will follow his exam closely. 7. The patient has coronary disease. No chest pain lately. 8. The patient has dementia. History of Present Illness Reason for Consult Consult date: 10/07/21 Chief Complaint Chief complaint: Acute Respiratory Failure w/Hypoxia,Acute Kidney F History of Present Illness Narrative: Miky is a very pleasant 81-year-old gentleman who has multiple medical problems including coronary disease, orthostatic hypotension, dementia, diabetes, dysphagia, GERD, hyperlipidemia, hypertension, chronic kidney disease stage IIIB, COPD. Patient came to the hospital because he was confused. He says he has been having poor appetite, considerable diarrhea with in numeral bowel movements every day he says. He has liquid stools. He has got a little bit of belly pain but not much. He has continued to take his medications at home through his illness including his furosemide. Is gradually worsening and then his mental status change so his family called 911 and had him brought over to the emergency room. In the ER he was evaluated. He was found to have a very high creatinine. His chest x-ray showed possible left lower lobe pneumonia. His abdominal x-ray was negative. A CT of the abdomen was ordered but is not back yet. He was swabbed and is positive for COVID. He was admitted to the floor and is on respiratory isolation. He does have some swelling. Says it has been much worse in the past. He still feels somewhat poorly. He continues to have diarrhea he says. He is not eating. The patient denies chest pain or shortness of breath Review of Systems Constitutional: Constitutional: Reports no additional constitutional complaints Eyes: Eyes: Reports no additional eye complaints ENT: Reports system reviewed and no additional complaints, except as documented Cardiovascular: Cardiovascular: Reports no additional cardiovascular
[2021-10-07 10:37] LABS: D Dimer 16.67 ug/mL (<0.48)
[2021-10-07] MEDS: SODIUM CHLORIDE 0.9% IV 1,000 ML 125 ML IV CONT ×2 (11:01→20:01)
[2021-10-07] MEDS: PANTOPRAZOLE SODIUM IV 40 MG VIAL IV PUSH (11:01)
[2021-10-07] MEDS: POTASSIUM CHLORIDE 20 MEQ TABLET.ER 40 MEQ PO (11:02)
[2021-10-07 11:34] LABS: Creatine Kinase 423 U/L (55-170); Lactate Dehydrogenase 824 U/L (313-618)
[2021-10-07 11:39] LABS: Erythrocyte Sedimentation Rate 89 mm/hr (0-20)
[2021-10-07 11:43] LABS: Complement C3 83 mg/dL (88-165); NT Pro B Type Natriuretic Pept 23200 pg/mL (5-100)
[2021-10-07 11:48] LABS: CRP 16.4 mg/dL (<1.0)
[2021-10-07 11:49] LABS: Glucose Point of Care 203 mg/dl (65-105)
[2021-10-07] MEDS: INSULIN ASPART (*BKC) 100 UNITS/ML SUB-Q (12:13)
[2021-10-07] MEDS: VANCOMYCIN ORAL 125 MG/2.5 ML SYRUP PO ×3 (12:14→23:50)
[2021-10-07 12:22] LABS: Thyroid Stimulating Hormone Reflex 0.561 uIU/mL (0.465-4.68)
[2021-10-07 16:02] LABS: Glucose Point of Care 165 mg/dl (65-105)
[2021-10-07 16:06] LABS: Hemoglobin 8.5 g/dL (14.0-18.0); Immature Platelet Fraction Pct 8.2 % (0.9-11.2); Mean Corpuscular HGB Conc 30.4 g/dl (32-36); Mean Corpuscular Hemoglobin 29.2 pg (26-34); Mean Corpuscular Volume 96.2 fl (80-100); Mean Platelet Volume 11.2 fl (7.4-10.4); Platelet Count Result 104 k/mm3 (150-375); Red Blood Count 2.91 M/mm3 (4.6-6.20); Red Cell Distribution Width 16.2 % (11.5-14.5); White Blood Count 7.2 K/mm3 (4.5-10.0)
[2021-10-07 16:14] LABS: INR 1.1; Prothrombin Time 14.1 Seconds (11.1-14.7)
[2021-10-07 16:15] LABS: Partial Thromboplastin Time 30.9 SECONDS (22.3-36.8)
[2021-10-07] MEDS: HEPARIN SOD/D5W 100 UNITS/ML 25,000 UNITS/250 ML BAG 13 UNITS IV CONT (16:29)
[2021-10-07] MEDS: carvediloL 3.125 MG TABLET PO (16:32)
[2021-10-07 16:38] LABS: Band Neutrophils Percent 7 % (0-6); Lymphocytes Absolute Manual 0.14 K/mm3 (1.1-4.5); Monocytes Absolute Manual 0.21 K/mm3 (0.1-0.90); Monocytes Percent Manual 3 % (3-9); Neutrophils Absolute Manual 6.84 K/mm3 (1.3-6.7); Neutrophils Percent Manual 88 % (46-73); Total Cells Counted 100
[2021-10-07 16:39] LABS: Anisocytosis 2+ (NORMAL); Hypochromasia 1+ (NORMAL)
--- NOTE | 2021-10-07 18:18 | PC.NURSE ---
This patient, Miky Funetes, was transferred to [ ICU 10] on 10/07/21 at 1750. Personal belongings sent with patient. Report given to [Zhang Sheikh RN]. Appropriate documentation sent with patient.
[2021-10-07] MEDS: MELATONIN 5 MG TABLET PO (21:49)
[2021-10-07 21:55] LABS: Glucose Point of Care 257 mg/dl (65-105)
[2021-10-07 22:57] LABS: Partial Thromboplastin Time 25.6 SECONDS (22.3-36.8)
[2021-10-08] VITALS (23 sets, daily range): BP systolic 104–120; BP diastolic 42–63; PULSE 56–69; RESP 15–20; TEMP 36.6–36.8; O2SAT 96–100; BMI 29.9
[2021-10-08] MEDS: HEPARIN SODIUM 5,000 UNITS/ML VIAL 5500 UNITS IV PUSH (00:07)
[2021-10-08] MEDS: SODIUM CHLORIDE 0.9% IV 1,000 ML 125 ML IV CONT (04:40)
[2021-10-08] MEDS: VANCOMYCIN ORAL 125 MG/2.5 ML SYRUP PO ×3 (05:15→17:58)
[2021-10-08] MEDS: methylPREDNISolone SOD SUCC 125 MG VIAL 60 MG IV PUSH (05:15)
[2021-10-08 06:24] LABS: Hematocrit 27.3 % (42.0-52.0); Hemoglobin 8.4 g/dL (14.0-18.0); Mean Corpuscular HGB Conc 30.8 g/dl (32-36); Mean Corpuscular Hemoglobin 29.5 pg (26-34); Mean Corpuscular Volume 95.8 fl (80-100); Mean Platelet Volume 11.3 fl (7.4-10.4); Platelet Count Result 117 k/mm3 (150-375); Red Blood Count 2.85 M/mm3 (4.6-6.20); Red Cell Distribution Width 16.4 % (11.5-14.5); White Blood Count 7.8 K/mm3 (4.5-10.0)
[2021-10-08 06:34] LABS: INR 1.3; Prothrombin Time 15.7 Seconds (11.1-14.7)
[2021-10-08 06:38] LABS: Alanine Aminotransferase 13 U/L (6-50); Albumin Level 2.2 g/dL (3.5-5.1); Alkaline Phosphatase 80 U/L (38-126); Anion Gap 10 mmol/L (8-16); Aspartate Amino Transferase 34 U/L (17-59); Bilirubin,Total 0.2 mg/dL (0.2-1.3); Blood Urea Nitrogen 71 mg/dL (9-20); Calcium 6.2 mg/dL (8.4-10.2); Carbon Dioxide 19 mmol/L (22-30); Chloride 102 mmol/L (98-107); Creatine Kinase 290 U/L (55-170); Estimated CRCL calculation 8 ml/min; Estimated Glomerular Filt Rate 7; Glucose 220 mg/dL (65-110); Phosphorus 6.5 mg/dL (2.5-4.5); Potassium 3.3 mmol/L (3.4-5.0); Sodium 131 mmol/L (137-145)
[2021-10-08 07:00] LABS: Partial Thromboplastin Time > 200.0 SECONDS (22.3-36.8)
[2021-10-08] MEDS: FERROUS SULFATE 324 MG TABLET PO (08:26)
[2021-10-08] MEDS: DONEPEZIL HCL 10 MG TABLET PO (08:26)
[2021-10-08] MEDS: FAMOTIDINE 20 MG TABLET 40 MG PO ×2 (08:26→16:44)
[2021-10-08] MEDS: POTASSIUM CHLORIDE 20 MEQ TABLET.ER 40 MEQ PO (08:26)
[2021-10-08] MEDS: GABAPENTIN 300 MG CAPSULE PO ×2 (08:27→16:44)
[2021-10-08] MEDS: PANTOPRAZOLE SODIUM IV 40 MG VIAL IV PUSH (08:27)
--- NOTE | 2021-10-08 08:49 | PM.PNNEP ---
Progress Note: A&P Additional Plan 1.Miky has chronic kidney disease. His creatinine seems to run between 2 and 2.5. He has had episodes where his creatinine was high in the past and improved back to its baseline. Renal ultrasound has not been done yet. Urinalysis showed blood, protein, bilirubin, and white cells. He does have diabetes and hypertension as well as coronary disease so probably diabetes, hypertension, and vascular disease are affecting his kidneys. He has got the 1 small kidney so may have of vascular issue there. Currently his blood pressure is not difficult to control and so it is unlikely that there is renal artery stenosis of the large artery Await evaluation. 2. The patient has acute kidney injury on top of chronic. He has had diarrhea with poor intake for the last few days. I suspect that dehydration may be going on. Will check urine electrolytes. Urine culture is pending. Blood cultures no growth to date not making much urine, no urine 'lytes collected so far chest x-ray is clear. Oxygenation is good. He appears dehydrated to me. His BNP is elevated but this may be a red ahn. He could have ATN as well. This might be from the C diff and or the COVID. For now will continue IV fluids. Discussed with 3. His potassium level was low. Most likely from the diarrhea. He just got A K supplement. 4. The patient has hyponatremia. This is chronic with a baseline sodium level in the mid 130s. Today the sodium is down to 131. The patient is most likely pre renal. He is not making any urine so SIADH does not play a role. Will continue to watch the sodium level as we hydrate. 5. The patient has anemia. Will keep an eye on this. Consider Epogen if it continues to fall[place] [address]. It is unclear what the significance of this is. He does have a little bit of swelling, but his albumin is low. He has 2+ protein in the urine. Will check a quantitative urine protein. his edema is not too bad so far. Will keep an eye on this. Consider albumin if he starts to make urine and his edema worsens. 7. The patient has coronary disease. No chest pain lately. 8. The patient has dementia. Subjective Date/time seen: 10/08/21 08:49 Interval history: Miky Is a pleasant 81-year-old gentleman. Says he slept well last night. Has a little bit of an appetite. Still having copious amounts of diarrhea. His belly does not hurt too much. No shortness of breath Review of Systems Cardiovascular: Cardiovascular: Reports no additional cardiovascular complaints Respiratory: Respiratory: Reports no additional respiratory complaints Gastrointestinal: Gastrointestinal: Reports no additional gastrointestinal complaints Genitourinary: Genitourinary: Reports no additional male genitourinary complaints Exam Narrative: WDWN in NAD skin no rash head ncat lungs clear bilaterally cor reg no rub or gallop abd BS+ nontender and soft ext no edema. Objective Data Vital Signs Vital Signs: Vital Signs - 24 hr 10/07/21 09:13 10/07/21 09:00 10/07/21 09:14 Temperature Pulse Rate 63 68 Respiratory Rate 16 16 Blood Pressure Pulse Oximetry 97 Oxygen Delivery Nasal Cannula Oxygen Flow Rate 2 10/07/21 09:58 10/07/21 11:52 10/07/21 12:00 Temperature 36.4 C Pulse Rate 52 L 54 L 54 L Respiratory Rate 20 20 Blood Pressure 113/53 L Pulse Oximetry 99 99 Oxygen Delivery Nasal Cannula Oxygen Flow Rate 2 10/07/21 12:00 10/07/21 14:00 10/07/21 15:58 Temperature Pulse Rate 53 L 56 L 56 L Respiratory Rate 20 Blood Pressure Pulse Oximetry 99 Oxygen Delivery Nasal Cannula Oxygen Flow Rate 2 10/07/21 16:00 10/07/21 16:32 10/07/21 16:00 Temperature 36.4 C Pulse Rate 67 57 L 54 L Respiratory Rate 18 Blood Pressure 96/44 L Pulse Oximetry 96 Oxygen Delivery Oxygen Flow Rate 10/07/21
[2021-10-08 08:53] LABS: Anisocytosis 1+ (NORMAL); Band Neutrophils Percent 6 % (0-6); Hypochromasia 1+ (NORMAL); Lymphocytes Absolute Manual 0.07 K/mm3 (1.1-4.5); Neutrophils Absolute Manual 7.72 K/mm3 (1.3-6.7); Neutrophils Percent Manual 93 % (46-73); Total Cells Counted 100
[2021-10-08 08:54] LABS: Crenated RBC 1+ (NORMAL); Poikilocytosis 1+ (NORMAL)
[2021-10-08 09:00] LABS: NT Pro B Type Natriuretic Pept 24300 pg/mL (5-100)
[2021-10-08 09:14] LABS: Glucose Point of Care 233 mg/dl (65-105)
[2021-10-08 09:21] LABS: Procalcitonin 1.6 ng/mL
--- NOTE | 2021-10-08 09:36 | PCOTNOTE ---
Attempted OT evaluation, patient is currently having testing completed, will follow.
--- NOTE | 2021-10-08 09:40 | PCPTNOTE ---
Attempted PT evaluation, patient is currently having testing completed, will follow.
[2021-10-08] MEDS: ALBUTEROL SULFATE NEB 2.5 MG/3 ML INH INHALATION ×3 (09:45→20:27)
[2021-10-08] MEDS: rifAXIMin 550 MG TABLET PO ×2 (10:06→20:44)
[2021-10-08] MEDS: SODIUM BICARBONATE 8.4% 50 MEQ/50 ML SYRINGE IV PUSH (10:06)
[2021-10-08] MEDS: hetaSTARCH 6%/NACL 500 ML 250 ML IV CONT (10:07)
[2021-10-08] MEDS: INSULIN ASPART (*BKC) 100 UNITS/ML SUB-Q ×2 (10:07→17:59)
--- NOTE | 2021-10-08 12:02 | WPDCNINT ---
Assessment and Plan Assessment and plan (1) C. difficile diarrhea: Code(s): A04.72 - Enterocolitis due to Clostridium difficile, not specified as recurrent Status: Acute Assessment and Plan: Patient presented with diarrhea, dehydration, C diff was positive on 10/07 -patient started on oral vancomycin, added Xifaxan -will have GI following the patient -continues to have diarrhea, FMS in place -continue IV fluids to replace volume loss (2) COVID-19: Code(s): U07.1 - COVID-19 Status: Acute Assessment and Plan: Patient tested positive for COVID on 10/06/2021 -patient currently on dexamethasone, not a candidate for remdesivir or baricitinib due to his GFR is 7. -currently on 2 L nasal cannula with good O2 sat -does not complain of any shortness of breath -chest x-ray this morning shows persistent patchy airspace opacity left lower lung zone consistent with pneumonia - will add ceftriaxone and azithromycin for 5 days for possible pneumonia (3) Ljkjj-kg-typupam kidney injury: Qualifiers: Acute renal failure type: unspecified Chronic kidney disease stage: stage 3 (moderate) Chronic kidney disease stage 3 subtype: stage 3b (GFR 30-44) Qualified Code(s): N17.9 - Acute kidney failure, unspecified; N18.32 - Chronic kidney disease, stage 3b Code(s): N17.9 - Acute kidney failure, unspecified; N18.9 - Chronic kidney disease, unspecified Status: Acute Assessment and Plan: Acute chronic kidney disease, creatinine is elevated 7.6 likely related to hypovolemia/dehydration secondary to diarrhea, also patient on furosemide and Coreg at home which could have dropped his blood pressures dehydrated. Also could be related UTI, cultures are pending -10/08/2021 renal ultrasound, showed unremarkable kidneys without hydronephrosis -appreciate Nephrology following the patient -continue aggressively hydrate the patient, remains on normal saline at 100 mL/hour -patient given Hespan this morning, and will start albumin as his albumin level is a 2.2 (4) Anemia: Code(s): D64.9 - Anemia, unspecified Status: Acute Assessment and Plan: Patient with anemia, which is chronic, hemoglobin is stable -will continue to monitor, no active bleed at this time (5) Acute hypokalemia: Code(s): E87.6 - Hypokalemia Status: Acute Assessment and Plan: Hypokalemia likely related to diarrhea from C diff -continue to potassium replacement (6) Elevated brain natriuretic peptide (BNP) level: Code(s): R79.89 - Other specified abnormal findings of blood chemistry Status: Acute Assessment and Plan: Elevated BNP of 22,000, chest x-ray does not show any pulmonary edema, patient has melena lower extremity edema -will continue to hydrate patient for his acute kidney injury 10/07/2021: Echocardiogram showed EF of 55-60%, no other valvular problems (7) Type 2 diabetes mellitus with hyperglycemia, without long-term current use of insulin: Code(s): E11.65 - Type 2 diabetes mellitus with hyperglycemia Status: Acute Assessment and Plan: Continue sliding scale insulin Accu-Cheks -patient on steroids, will continue monitor blood sugars, patient may require low-dose Lantus (8) Left leg DVT: Code(s): I82.402 - Acute embolism and thrombosis of unspecified deep veins of left lower extremity Status: Acute Assessment and Plan: 10/08/2021 lower extremity venous Dopplers: Small amount of right sided [id number] deep venous thrombosis at the proximal aspect of one of the paired posterior tibial veins at the right calf.. No deep venous necrosis in the left lower limb -continue heparin infusion Plan Will check bladder scan -flush Jackson catheter Hold Coreg and Lasix Will let the blood pressures right ankle higher for adequate renal perfusion Additional Plan DVT prophylaxis: Heparin infusion Nutrition: Diabetic diet Discussed with patient update
[2021-10-08] MEDS: ALBUMIN HUMAN 25% 25 GM/100 ML 100 ML IVPB ×2 (12:24→17:59)
[2021-10-08] MEDS: HEPARIN SOD/D5W 100 UNITS/ML 25,000 UNITS/250 ML BAG 14 UNITS IV CONT (14:13)
[2021-10-08 15:20] LABS: Partial Thromboplastin Time > 200.0 SECONDS (22.3-36.8)
[2021-10-08] MEDS: SODIUM CHLORIDE 0.9% IV 1,000 ML 100 ML IV CONT (16:43)
[2021-10-08 16:51] LABS: Glucose Point of Care 286 mg/dl (65-105)
[2021-10-08] MEDS: MELATONIN 5 MG TABLET PO (20:45)
[2021-10-08] MEDS: ROSUVASTATIN 10 MG TABLET 20 MG PO (20:45)
[2021-10-08] MEDS: ASPIRIN 81 MG ENTERIC TABLET PO (20:45)
[2021-10-08 20:52] LABS: Glucose Point of Care 235 mg/dl (65-105)
[2021-10-08 23:44] LABS: Partial Thromboplastin Time > 200.0 SECONDS (22.3-36.8)
[2021-10-09] VITALS (29 sets, daily range): BP systolic 133–162; BP diastolic 55–81; PULSE 51–92; RESP 17–28; TEMP 36–36.8; O2SAT 90–100; BMI 30.4
[2021-10-09] MEDS: ALBUMIN HUMAN 25% 25 GM/100 ML 100 ML IVPB ×2 (00:03→05:56)
[2021-10-09] MEDS: VANCOMYCIN ORAL 125 MG/2.5 ML SYRUP PO ×2 (00:04→05:56)
[2021-10-09] MEDS: ALBUTEROL SULFATE NEB 2.5 MG/3 ML INH INHALATION (02:14)
[2021-10-09 04:56] LABS: Basophils Percent Auto 0.1 % (0.2-1.2); Hematocrit 21.7 % (42.0-52.0); Immature Granulocyte Absolute 0.09 K/mm3 (0.00-0.031); Immature Granulocyte Percent A 1.2 % (0-0.5); Immature Platelet Fraction Pct 6.4 % (0.9-11.2); Lymphocytes Absolute Auto 0.18 K/mm3 (0.9-3.2); Lymphocytes Percent Auto 2.4 % (18.3-44.2); Mean Corpuscular HGB Conc 30.9 g/dl (32-36); Mean Corpuscular Hemoglobin 29.8 pg (26-34); Mean Corpuscular Volume 96.4 fl (80-100); Monocytes Absolute Auto 0.2 K/mm3 (0.1-0.6); Monocytes Percent Auto 2.5 % (2.6-8.5); Neutrophils Absolute Auto 7.1 K/mm3 (1.3-6.7); Neutrophils Percent Auto 93.8 % (45.5-73.1); Platelet Count Result 103 k/mm3 (150-375); Red Blood Count 2.25 M/mm3 (4.6-6.20); Red Cell Distribution Width 16.7 % (11.5-14.5); White Blood Count 7.6 K/mm3 (4.5-10.0)
[2021-10-09 05:04] LABS: Alanine Aminotransferase 10 U/L (6-50); Albumin Level 2.4 g/dL (3.5-5.1); Alkaline Phosphatase 52 U/L (38-126); Anion Gap 11 mmol/L (8-16); Aspartate Amino Transferase 24 U/L (17-59); Bilirubin,Total 0.3 mg/dL (0.2-1.3); Blood Urea Nitrogen 72 mg/dL (9-20); Carbon Dioxide 18 mmol/L (22-30); Chloride 103 mmol/L (98-107); Creatine Kinase 164 U/L (55-170); Estimated CRCL calculation 8 ml/min; Estimated Glomerular Filt Rate 7; Glucose 202 mg/dL (65-110); Magnesium 1.9 mg/dL (1.6-2.3); Phosphorus 6.4 mg/dL (2.5-4.5); Sodium 132 mmol/L (137-145)
[2021-10-09 05:15] LABS: Lactic Acid Reflex 0.5 mmol/L (0.7-2.0)
[2021-10-09 05:23] LABS: Hemoglobin 6.7 g/dL (14.0-18.0)
--- NOTE | 2021-10-09 07:00 | PC.NURSE ---
Dr. Motley informed of blood noted to FMS and HGB of 6.7. Orders received.
[2021-10-09 07:17] LABS: Partial Thromboplastin Time > 200.0 SECONDS (22.3-36.8)
[2021-10-09 07:59] LABS: Glucose Point of Care 216 mg/dl (65-105)
[2021-10-09] MEDS: SODIUM CHLORIDE 0.9% IV 250 ML 30 ML IV CONT (08:57)
[2021-10-09] MEDS: CALCIUM GLUC 2,000 MG/NS 100ML 2,000 MG/100 ML BAG 100 MG IVPB (08:58)
[2021-10-09] MEDS: BUMETANIDE INJ 1 MG/4 ML VIAL 2 MG IV PUSH (08:59)
[2021-10-09] MEDS: INSULIN GLARGINE (*BKC) 100 UNITS/ML 10 UNITS SUB-Q (09:05)
[2021-10-09] MEDS: FERROUS SULFATE 324 MG TABLET PO (09:11)
[2021-10-09] MEDS: POTASSIUM CHLORIDE 20 MEQ TABLET.ER 40 MEQ PO (09:11)
[2021-10-09] MEDS: DONEPEZIL HCL 10 MG TABLET PO (09:12)
[2021-10-09] MEDS: GABAPENTIN 300 MG CAPSULE PO (09:13)
[2021-10-09] MEDS: PANTOPRAZOLE SODIUM IV 40 MG VIAL IV PUSH ×2 (09:13→21:25)
[2021-10-09] MEDS: rifAXIMin 550 MG TABLET PO ×2 (09:13→21:24)
--- NOTE | 2021-10-09 09:48 | WPDINTPN ---
Progress Note: A&P Assessment and Plan (1) C. difficile diarrhea: Code(s): A04.72 - Enterocolitis due to Clostridium difficile, not specified as recurrent Status: Acute Assessment and Plan: Patient presented with diarrhea, dehydration, C diff was positive on 10/07 -continue oral vancomycin -he is also on Xifaxan -GI consulted -continues to have diarrhea, FMS in place -hold further IV fluids due to pulmonary edema (2) COVID-19: Code(s): U07.1 - COVID-19 Status: Acute Assessment and Plan: Patient tested positive for COVID on 10/06/2021 -patient currently on dexamethasone, not a candidate for remdesivir or baricitinib due to his GFR is 7. -currently on 2 L nasal cannula with good O2 sat -chest x-ray this morning shows persistent patchy airspace opacity left lower lung zone consistent with pneumonia -chest x-ray done today showed focal right basilar opacity -continue ceftriaxone and azithromycin for 5 days for possible pneumonia -add incentive spirometry (3) Wawho-xc-dtiwama kidney injury: Qualifiers: Acute renal failure type: unspecified Chronic kidney disease stage: stage 3 (moderate) Chronic kidney disease stage 3 subtype: stage 3b (GFR 30-44) Qualified Code(s): N17.9 - Acute kidney failure, unspecified; N18.32 - Chronic kidney disease, stage 3b Code(s): N17.9 - Acute kidney failure, unspecified; N18.9 - Chronic kidney disease, unspecified Status: Acute Assessment and Plan: Acute kidney injury on chronic kidney disease, creatinine is elevated 7.6 likely related to hypovolemia/dehydration secondary to diarrhea, also patient on furosemide and Coreg at home which could have dropped his blood pressures dehydrated. Also could be related UTI, cultures are pending -10/08/2021 renal ultrasound, showed unremarkable kidneys without hydronephrosis -CK level was normal -nephrology is following -hold further IV fluids to prevent volume overload -he did receive albumin and going to receive 1 unit of PRBC -will likely need hemodialysis although does not need emergently this time. Consult general surgery for tunneled dialysis catheter to get him on a OR schedule (4) Anemia: Code(s): D64.9 - Anemia, unspecified Status: Acute Assessment and Plan: Patient has chronic anemia but hemoglobin has dropped to 6.7 In light of dark stools and colitis will hold anticoagulation at this time -1 unit PRBC transfusion has been ordered -change PPI to IV q.12 hours -q.6 hours hemoglobin monitoring -will discuss with GI (5) Acute hypokalemia: Code(s): E87.6 - Hypokalemia Status: Acute Assessment and Plan: Hypokalemia likely related to diarrhea from C diff -continue to potassium replacement (6) Type 2 diabetes mellitus with hyperglycemia, without long-term current use of insulin: Code(s): E11.65 - Type 2 diabetes mellitus with hyperglycemia Status: Acute Assessment and Plan: Continue sliding scale insulin Accu-Cheks -patient on steroids, will continue monitor blood sugars -add Lantus (7) Left leg DVT: Code(s): I82.402 - Acute embolism and thrombosis of unspecified deep veins of left lower extremity Status: Acute Assessment and Plan: 10/08/2021 lower extremity venous Dopplers: Small amount of right sided bmexj-hsc-rzmo deep venous thrombosis at the proximal aspect of one of the paired posterior tibial veins at the right calf.. No deep venous necrosis in the left lower limb Heparin infusion held due to drop in hemoglobin (8) Congestive heart failure: Code(s): I50.9 - Heart failure, unspecified Status: Acute Assessment and Plan: Elevated BNP of 22,000 on presentation Echo Summary ? 1. Complete two-dimensional, color flow and Doppler transthoracic echocardiogram is performed. ? 2. Left ventricular chamber dimension is normal. ? 3. Left ventricular systolic function is normal, estimated at 55-60%. ? 4. The
[2021-10-09] MEDS: POTASSIUM CHLORIDE INJ 40 MEQ in SODIUM CHLORIDE 0.9% IV 500 ML 75 MEQ IVPB (10:10)
--- NOTE | 2021-10-09 11:27 | PCFNICU ---
ICU Rounding Note: Pt current nutrition is Diabetic consistent carb. Nutrition recommendation: Continue with current plan of care Last recorded weight is 88.1 kg - up from 86.9kg on admit. Bowel Motility: +BM 10/09 - continues to have diarrhea, noted on banitrol TID Labs Reviewed: hgb:6.7, HCT:21.7, Alb:2.4, NA:132, K:3.0, GFR:7, Glu:202 Meds Noted: heparin, novolog, lantus, kcl, protonix Skin: macerated coccyx Additional Notes: Pt continues on a diabetic diet. Intake 75-100% most all meals. Up eating breakfast during rounding. Banitrol in place TID with meals due to diarrhea. Agree with diet order. Following daily in ICU rounds. Follow up every 5 days..
--- NOTE | 2021-10-09 11:27 | PM.CNGS ---
Assessment and Plan Assessment and plan (1) Cnlpj-qq-gqvlfkp kidney injury: Qualifiers: Acute renal failure type: unspecified Chronic kidney disease stage: stage 3 (moderate) Chronic kidney disease stage 3 subtype: stage 3b (GFR 30-44) Qualified Code(s): N17.9 - Acute kidney failure, unspecified; N18.32 - Chronic kidney disease, stage 3b Code(s): N17.9 - Acute kidney failure, unspecified; N18.9 - Chronic kidney disease, unspecified Status: Acute Assessment and Plan: Patient presented with acute on chronic kidney disease, which continues to slowly worsen despite medical treatment. Nephrology is anticipating the need for hemodialysis and requested that we place a tunneled dialysis catheter. Description of the procedure, risks, benefits,and recovery were discussed with the patient in detail. Heparin drip for the DVT has been on hold since early this morning, will continue to hold and plan to proceed with placement of a tunneled dialysis catheter by Dr. Moreno this afternoon. Keep patient NPO. (2) COVID-19: Code(s): U07.1 - COVID-19 Status: Acute Assessment and Plan: COVID positive. OR and Dr. Moreno aware. Will continue appropriate precautions during surgery. Currently on 2L O2 NC. (3) C. difficile diarrhea: Code(s): A04.72 - Enterocolitis due to Clostridium difficile, not specified as recurrent Status: Acute Assessment and Plan: C.diff positive. Will continue appropriate precautions during surgery. (4) Left leg DVT: Code(s): I82.402 - Acute embolism and thrombosis of unspecified deep veins of left lower extremity Status: Acute Assessment and Plan: Bilateral lower extremity venous dopplers showed small mtetr-yor-ezmt DVT at the proximal aspect of a right posterior tibial vein. He was being treated with an IV heparin drip that has now been put on hold since early this morning. Continue to hold for surgery today. (5) Congestive heart failure: Code(s): I50.9 - Heart failure, unspecified Status: Acute (6) Diabetes: Code(s): E11.9 - Type 2 diabetes mellitus without complications Status: Chronic (7) COPD (chronic obstructive pulmonary disease): Code(s): J44.9 - Chronic obstructive pulmonary disease, unspecified Status: Acute (8) Dementia: Code(s): F03.90 - Unspecified dementia without behavioral disturbance Status: Acute (9) Anemia: Code(s): D64.9 - Anemia, unspecified Status: Acute Assessment and Plan: Hgb 6.7 this morning. Heparin drip on hold. 1unit PRBCs given. Plan I have discussed the patient's case and plan of care with Dr. Moreno. History of Present Illness Consult details Consult date: 10/09/21 Reason for consult: other (Placement of a tunneled dialysis catheter) Requesting physician: Efren Johnson MD Narrative: This is a 81-year-old male with a history of COPD, CAD status post CABG in 2000, dementia, type 2 diabetes, stage 3 chronic kidney disease, and other medical problems, who was brought into the ER on 10/06/2021 via EMS due to altered mental status. His significant other had been positive for COVID and he was found to be positive for COVID in the ER. Workup also revealed acute on chronic kidney disease with hypokalemia. He was admitted to the hospitalist service. Nephrology was consulted and has been following the patient. He was also having complaints of diarrhea and has tested positive for C diff. He is now on Xifaxan and oral vancomycin. He has been transferred to ICU for closer monitoring. He was started on IV antibiotics for possible pneumonia. Yesterday, lower extremity venous Dopplers were ordered and showed a small amount of right-sided qhciw-jke-xixo DVT at the proximal aspect of a right posterior tibial vein. He was started on a heparin drip, which was put on hold early this morning after his morning labs showed a hemoglobin of 6.7. The heparin drip remains on
[2021-10-09 12:31] LABS: Glucose Point of Care 220 mg/dl (65-105)
[2021-10-09 12:42] LABS: Alveolar/Arterial O2 Gradient 79.8 mmHg; Base Excess ABG -7.4 mEq/l (+/-2.0); Device NASAL CANNULA; Fractional Inspired Oxygen 28 %; HCO3 ABG 18.9 mEq/l (22.0-26.0); Modified Allen's Test Pass; Oxygen Content ABG 11.4 %vol (16.0-22.0); Oxygen Saturation ABG 92.2 % (95.0-100.0); Oxyhemoglobin 91.6 % THb (90.0-100.0); PCO2 ABG 41.6 mmHg (35.0-45.0); PO2 ABG 70.8 mmHg (80.0-100.0); PO2 FiO2 Ratio Arterial Blood 2.53 %; Site Drawn RIGHT RADIAL; Total Hemoglobin 8.8 g/dL (12.0-18.0); pH ABG 7.275 (7.350-7.450)
[2021-10-09] MEDS: SODIUM BICARBONATE 8.4% 50 MEQ/50 ML SYRINGE 100 MEQ IV PUSH (13:05)
--- NOTE | 2021-10-09 13:29 | WPDANESEPPF ---
Anes - Initial Pre Proc Eval Procedure: Operation Date: 10/09/21 14:00 Proposed Procedures p Placement Tunneled Dialysis Catheter Under Fluoroscopy - Ciaran Moreno MD Date/Time: 10/09/21 13:29 Surgeon: Leonard Downs MD Pre Op Diagnosis: Acute Respiratory Failure w/Hypoxia,Acute Kidney F Patient Data Age: 81 Gender: M Height: 1.7 m Weight: 88.1 kg Last Vital Signs Temp 97.7 F 10/09/21 12:43 Pulse 75 10/09/21 12:43 Resp 26 H 10/09/21 12:43 BP 162/81 H 10/09/21 12:43 Pulse Ox 100 10/09/21 12:43 O2 Del Method Room Air 10/09/21 08:33 O2 Flow Rate 1 10/08/21 20:27 Allergies Allergy/AdvReac Type Severity Reaction Status Date / Time morphine Allergy Intermediate Itching Verified 10/06/21 22:49 Penicillins Allergy Mild Unknown Verified 10/06/21 22:49 Home Medications Medication Instructions Recorded Confirmed Type carvedilol 12.5 mg tablet 12.5 mg PO BID 10/11/19 10/07/21 History donepezil 10 mg tablet 10 mg PO DAILY 10/11/19 10/07/21 History ezetimibe 10 mg tablet 5 mg PO DAILY 10/11/19 10/07/21 History famotidine 20 mg tablet 40 mg PO BID 10/11/19 10/07/21 History furosemide 20 mg tablet 20 mg PO DAILY 10/11/19 10/07/21 History gabapentin 300 mg capsule 300 mg PO BID 10/11/19 10/07/21 History pioglitazone 30 mg tablet 30 mg PO DAILY 10/11/19 10/07/21 History rosuvastatin 40 mg tablet 20 mg PO HS 10/11/19 10/07/21 History sitagliptin 100 mg tablet (Januvia) 100 mg PO DAILY 10/11/19 10/07/21 History albuterol sulfate 2.5 mg/3 mL 2.5 mg inhalation BID 07/28/21 10/07/21 History (0.083 %) solution for nebulization aspirin 81 mg tablet 81 mg PO HS 07/28/21 10/07/21 History budesonide 160 mcg-glycopyr 9 2 inh inhalation BID 07/28/21 10/07/21 History mcg-formot 4.8 mcg/actuation HFA inhaler (Breztri Aerosphere) hydrocodone 5 mg-acetaminophen 325 2 tablet PO Q4H PRN pain 07/28/21 10/07/21 History mg tablet albuterol sulfate 90 mcg/actuation 1 inh inhalation QID PRN shortness 08/04/21 10/07/21 Rx aerosol inhaler of breath or wheezing #6.7 grams ferrous sulfate 325 mg (65 mg 1 tablet PO DAILY 09/15/21 10/07/21 History iron) tablet Laboratory Tests 10/08/21 10/08/21 10/08/21 14:39 16:41 20:49 WBC RBC Hgb Hct MCV MCH MCHC RDW Plt Count MPV Immature Gran % (Auto) Neut % (Auto) Lymph % (Auto) [place] % (Auto) Eos % (Auto) Baso % (Auto) Lymph # (Auto) [place] # (Auto) Eos # (Auto) Baso # (Auto) Abs Immat Gran (auto) Absolute Neuts (auto) Absolute Nucleated RBC Nucleated RBC % % Immature Plt Fraction APTT > 200.0 SECONDS H* SECONDS (22.3-36.8) Puncture Site ABG pH ABG pCO2 ABG pO2 ABG PO2/FiO2 Ratio ABG HCO3 ABG O2 Saturation ABG O2 Content ABG Base Excess A-a Gradient Oxyhemoglobin Total Hemoglobin O2 Delivery Device O2 Liters/Min FiO2 Sodium Potassium Chloride Carbon Dioxide Anion Gap BUN Creatinine Estim Creat Clear Calc Estimated GFR Glucose POC Capillary Glucose 286 mg/dl H mg/dl 235 mg/dl H mg/dl (65-105) (65-105) Lactic Acid Calcium Phosphorus Magnesium Total Bilirubin AST ALT Alkaline Phosphatase Total Creatine Kinase Total Protein Albumin Blood Type Antibody Screen Cross
[2021-10-09] MEDS: ceFAZolin SODIUM 1 GM VIAL 2 GM IV PUSH (14:07)
[2021-10-09] MEDS: HEPARIN SODIUM 5,000 UNITS/ML VIAL 5000 UNITS IRRIGATION (14:09)
[2021-10-09] MEDS: LIDO 1%/EPINEPHRINE/PF 1:200,000 30 ML VIAL XX (14:22)
[2021-10-09] MEDS: HEPARIN SODIUM, PORCINE 10,000 UNITS/10 ML VIAL 1000 UNITS IRRIGATION (14:23)
--- NOTE | 2021-10-09 14:26 | PM.PNNEP ---
Progress Note: A&P Additional Plan 1.Miky has chronic kidney disease. His creatinine seems to run between 2 and 2.5. He has had episodes where his creatinine was high in the past and improved back to its baseline. Renal ultrasound is unremarkable. Urinalysis showed blood, protein, bilirubin, and white cells. He does have diabetes and hypertension as well as coronary disease so probably diabetes, hypertension, and vascular disease are affecting his kidneys. Await evaluation. 2. The patient has acute kidney injury on top of chronic. He has had diarrhea with poor intake for the last few days. I suspect that dehydration may be going on. Will check urine electrolytes. Urine culture is pending. Blood cultures no growth to date not making much urine, no urine 'lytes collected so far chest x-ray is clear. Oxygenation is good. He appears dehydrated to me. His BNP is elevated but this may be a red ahn. He could have ATN as well. This might be from the C diff and or the COVID. Creatinine continues to be high. His chest x-ray is okay but his lungs sound terrible. Will give a dose of Bumex to see if we can convert him to nonoliguric renal failure and also give him Xopenex to make him feel better. 3. His potassium level was low. Most likely from the diarrhea. He just got A K supplement. He has potassium in his IV as well. 4. The patient has hyponatremia. This is chronic with a baseline sodium level in the mid 130s. Sodium is still in the 130s. This is probably due to his renal failure. 5. The patient has anemia. Will keep an eye on this. Consider Epogen if it continues to fall[place] [address]. It is unclear what the significance of this is. He does have a little bit of swelling, but his albumin is low. He has 2+ protein in the urine. Will check a quantitative urine protein. his edema is not too bad so far. Will keep an eye on this. Consider albumin if he starts to make urine and his edema worsens. 7. The patient has coronary disease. No chest pain lately. 8. The patient has dementia. Subjective Date/time seen: 10/09/21 14:26 Interval history: Miky Is a pleasant 81-year-old gentleman. Still awake and interactive. No belly pain. Still has constant diarrhea per FMS Exam Narrative: WDWN in NAD skin no rash head ncat lungs Coarse with rhonchi and increased expiratory phase. cor reg no rub or gallop abd BS+ nontender and soft ext no edema. Objective Data Vital Signs Vital Signs: Vital Signs - 24 hr 10/08/21 14:53 10/08/21 14:54 10/08/21 15:02 Temperature Pulse Rate 63 64 64 Respiratory Rate 18 18 16 Blood Pressure Pulse Oximetry 99 Oxygen Delivery Nasal Cannula Oxygen Flow Rate 2 10/08/21 16:00 10/08/21 18:00 10/08/21 16:00 Temperature 36.8 C Pulse Rate 65 69 65 Respiratory Rate 18 Blood Pressure 104/42 L Pulse Oximetry 99 Oxygen Delivery Oxygen Flow Rate 10/08/21 16:00 10/08/21 18:00 10/08/21 20:27 Temperature Pulse Rate 69 64 Respiratory Rate 16 18 Blood Pressure 117/55 L Pulse Oximetry 98 99 98 Oxygen Delivery Nasal Cannula Nasal Cannula Oxygen Flow Rate 2 1 10/08/21 20:27 10/08/21 20:37 10/08/21 20:00 Temperature Pulse Rate 64 64 65 Respiratory Rate 18 18 Blood Pressure Pulse Oximetry Oxygen Delivery Oxygen Flow Rate 10/08/21 20:00 10/08/21 20:00 10/08/21 22:00 Temperature 36.7 C Pulse Rate 63 62 Respiratory Rate 18 Blood Pressure 115/50 L Pulse Oximetry 98 96 Oxygen Delivery Oxygen Flow Rate 10/08/21 22:00 10/09/21 00:00 10/09/21 00:00 Temperature Pulse Rate 62 67 Respiratory Rate 18 Blood Pressure 111/48 L Pulse Oximetry 97 98 Oxygen Delivery Oxygen Flow Rate 10/09/21 00:00 10/09/21 02:14 10/09/21 02:00 Temperature 36.7 C Pulse Rate 67 71 60 Respiratory Rate 20 18 Blood Pressure 149/73 H Pulse
--- NOTE | 2021-10-09 14:37 | WPDGICN ---
Assessment and Plan Assessment and plan (1) C. difficile diarrhea: Code(s): A04.72 - Enterocolitis due to Clostridium difficile, not specified as recurrent Status: Acute Assessment and Plan: on dificid and vancomycin continue to monitor he is quite sick with worsening renal failure, covid, chf, etc (2) Ssugv-[id number]-owqnnqv kidney injury: Qualifiers: Acute renal failure type: unspecified Chronic kidney disease stage: stage 3 (moderate) Chronic kidney disease stage 3 subtype: stage 3b (GFR 30-44) Qualified Code(s): N17.9 - Acute kidney failure, unspecified; N18.32 - Chronic kidney disease, stage 3b Code(s): N17.9 - Acute kidney failure, unspecified; N18.9 - Chronic kidney disease, unspecified Status: Acute Assessment and Plan: will get dialysis catheter nephrology on board (3) Acute on chronic anemia: Code(s): D64.9 - Anemia, unspecified Status: Acute Assessment and Plan: recent hb 8.5 with most recently 6.7- could be multifactorial he will receive one unit prbc and then will monitor for obvious signs of overt gib I would prefer conservative approach given respiratory condition and also COVID infection (risk for anesthesia and intubation) iv protonix (4) Congestive heart failure: Code(s): I50.9 - Heart failure, unspecified Status: Acute (5) Severe protein-calorie malnutrition: Code(s): E43 - Unspecified severe protein-calorie malnutrition Status: Acute (6) Acute hypoxemic respiratory failure: Code(s): J96.01 - Acute respiratory failure with hypoxia Status: Acute Assessment and Plan: by chief station 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 (7) Dementia: Code(s): F03.90 - Unspecified dementia without behavioral disturbance Status: Acute (8) Right leg DVT: Code(s): I82.401 - Acute embolism and thrombosis of unspecified deep veins of right lower extremity Status: Acute Assessment and Plan: new finding GI Consult Note Consult date/time: 10/09/21 14:37 Reason for consult: c diff colitis, acute on chronic anemia HPI: Miky Fuentes is a 81 year old male with history of chronic kidney disease, type 2 diabetes mellitus, peripheral neuropathy, dyslipidemia, coronary artery disease, dementia, gastroesophageal reflux disease who was brought to the emergency room 3 days ago with altered mental status and family called 911 (history obtained from records). He was having diarrhea and poor per orally intake for several days, he also diagnosed with COVID pneumonia and was on bipap, diagnosed with acute on chronic renal failure- creatinine of 7, BUN 64, hemoglobin 8.5. CT scan reviewed and showed pancolitis, Left lower lobe pneumonia, Cardiomegaly. Hb down to 6.7 and getting blood transfusion, noted dark stool (he has a fecal management because persistent diarrhea)- currently on dificid and vancomycin. He also will get a dialysis catheter. Review of Systems Review of Systems: ROS unobtainable: Yes unobtainable due to mental status PMFSH Past Medical History Medical History (Updated 10/09/21 @ 14:45 by Jerry Valdze MD) Acute on chronic anemia COPD (chronic obstructive pulmonary disease) Coronary artery disease Dementia Diabetes type 2, controlled Diabetic peripheral neuropathy Dysphagia With history absent gag reflex with failed modified barium swallow October 2018. Patient refused G-tube at the time. GERD (gastroesophageal reflux disease) History of left heart catheterization Hyperlipidemia Hypertension Hyponatremia 132-136 Normal echocardiogram October 2018 Orthostatic hypotension Right leg DVT Stage 3b chronic kidney disease Secondary to diabetes, hypertension, vascular disease and age Surgical History Surgical History (Updated 09/17/21 @ 07:55 by Yovani Mcneill, ) H/O inguinal hernia repair Hx of CABG 3 vessel, 2000 Family History Family History (Reviewed 10/07/21 @ 03:04 by Elizabeth Carbone
--- NOTE | 2021-10-09 14:53 | W.PM.PROC2 ---
Procedure Note - Detailed Date of Procedure 10/09/21 Pre-op Diagnosis Acute on chronic kidney injury, inadequate venous access Post-op Diagnosis Same Procedure Performed Placement right internal jugular tunneled dura flow central venous catheter under fluoroscopy Surgeon Ciaran Moreno MD Ship/Rec/Doc Control [facility] Anesthesia General and Local (1% lidocaine with epinephrine) Indications Patient is a 81-year-old man with dementia and also has COVID-19. He had severe diarrhea due to C difficile colitis and acute kidney injury. He already had severe chronic kidney disease. His creatinine is not improving. I was asked to place a tunneled central venous catheter for dialysis. Patient is taken to surgery at this time for that purpose Findings Tunneled central venous catheter passes into the internal jugular vein without evidence of kinks or abrupt angulation. Tip of the catheter was in the distal SVC right atrial junction Description of Procedure Patient was taken to surgery and induced into general anesthesia. He could not come close to lying flat due to shortness of breath. Full COVID precautions were used throughout the procedure. We used clippers and shaved the right neck and lower aspect of his face as well as his chest. We then washed with soap and water the right neck and upper chest. The right neck and chest were then prepped and draped. Local anesthetic was infiltrated over the right internal jugular vein in the upper neck. A single puncture was used to cannulate the internal jugular vein. A guidewire passed readily. We used C-arm fluoroscopy in documented that the guidewire had passed into the inferior vena cava. I then used C-arm fluoroscopy to map out the course of the 36 cm tunneled dura flow catheter. I made medina on the skin for counter incisions that would be needed to tunnel the catheter. Local anesthetic was then infiltrated in each of these counter incisions. The catheter was tunneled retrograde from just below the right clavicle up through each of the counter incisions and out the same incision as the guidewire was exiting. Under fluoroscopy, I then passed serial dilators over the guidewire and into the superior vena cava. The dilator with sheath was then passed over the guidewire under fluoroscopy as well. The guidewire and the dilator were removed leaving the sheath. The dura flow catheter was then passed into the sheath and also passed down into the distal SVC. The sheath was then removed. I then looked at the course of the guidewire and ensured that it did not have kinks or any abrupt angulation. We then used C-arm fluoroscopy to check the path of the guidewire and it looked good as well. The tip was in the distal SVC at the right atrial junction. Pressure was held at the entry point of the guidewire into the internal jugular vein as there was some back bleeding there. Eventually this stopped. Both ports aspirated blood and flushed easily with heparin. I then closed each of the counter incisions with 4-0 Vicryl subcuticular interrupted suture. The catheter was sutured to the skin with 3-0 nylon. An antibiotic disc was placed over the exit site of the catheter. The counter incisions were dressed with Exofin surgical adhesive. The exit site of the catheter was dressed with sterile transparent dressing. The patient was then left intubated and transferred directly to the intensive care unit. Sponge needle counts were correct x2. Implants 36 cm dura flow tunneled central venous catheter Estimated Blood Loss -20 Urine Output 100 Drains No Packing No Pathology None sent Complications No immediate complications Condition Stable Disposition ICU [facility] Billing Surgery - Charge Forward: Surgery Billing (Placement tunneled central venous catheter under fluoroscopy)
[2021-10-09] MEDS: FENTANYL 2,500MCG/NS250ML(*CRX 2,500 MCG/250 ML BAG IV CONT (15:26)
[2021-10-09] MEDS: MIDAZOLAM 100MG/NS 100ML(*CRX) 100 MG/100 ML BAG IV CONT (15:26)
[2021-10-09] MEDS: MIDAZOLAM HCL (*CRX) 2 MG/2 ML VIAL 4 MG IV PUSH (15:28)
[2021-10-09 15:36] LABS: Glucose Point of Care 273 mg/dl (65-105)
--- NOTE | 2021-10-09 15:36 | PM.EVENT ---
Event Note Event Note Event Note: Patient returned from OR intubated and on mechanical ventilation. Orders placed for sedation NG tube, ventilator settings ABG and chest x-ray. Start tube feeds. Will request Nephrology to set up hemodialysis for tomorrow before weaning trials.
[2021-10-09 16:21] LABS: Base Excess ABG -7.1 mEq/l (+/-2.0); Carboxyhemoglobin 0.2 % THb (0-2.0); Fractional Inspired Oxygen 100 %; HCO3 ABG 17.3 mEq/l (22.0-26.0); Methemoglobin ABG 0.6 %THb (0-1.5); Oxygen Content ABG 13.6 %vol (16.0-22.0); Oxygen Saturation ABG 99.9 % (95.0-100.0); PCO2 ABG 30.9 mmHg (35.0-45.0); PO2 ABG 468.1 mmHg (80.0-100.0); PO2 FiO2 Ratio Arterial Blood 4.68 %; Reduced Hemoglobin 1.2 %THb (0-5.0); Total Hemoglobin 8.9 g/dL (12.0-18.0); pH ABG 7.367 (7.350-7.450)
[2021-10-09 16:23] LABS: Device VENTILATOR; Modified Allen's Test Pass; Site Drawn RIGHT RADIAL
[2021-10-09 16:24] LABS: Arterial Blood Gas PEEP 8 cmH2O; Arterial Blood Gas Tidal Volume 450 ml; Arterial Blood Gas Vent Mode CMV; Arterial Blood Gas Ventilator rate 20 /MIN
[2021-10-09 18:17] LABS: Glucose Point of Care 246 mg/dl (65-105)
[2021-10-09] MEDS: INSULIN ASPART (*BKC) 100 UNITS/ML SUB-Q ×2 (18:26→21:22)
--- NOTE | 2021-10-09 20:00 | PC.NURSE ---
RN discussed with pharmacy on administration of xifaxan and crestor via OG tube, pharmacy stated no issue with administration via OG tube.
[2021-10-09 21:09] LABS: Hematocrit 25.1 % (42.0-52.0); Hemoglobin 7.9 g/dL (14.0-18.0)
[2021-10-09] MEDS: MINERAL OIL/WHITE PETROLATUM OINTMENT 1 APPLIC EACH EYE (21:24)
[2021-10-09] MEDS: ROSUVASTATIN 10 MG TABLET 20 MG PO (21:24)
[2021-10-09 21:31] LABS: Anion Gap 13 mmol/L (8-16); Blood Urea Nitrogen 73 mg/dL (9-20); Calcium 6.8 mg/dL (8.4-10.2); Carbon Dioxide 17 mmol/L (22-30); Chloride 105 mmol/L (98-107); Estimated CRCL calculation 8 ml/min; Estimated Glomerular Filt Rate 7; Glucose 199 mg/dL (65-110); Potassium 3.1 mmol/L (3.4-5.0); Sodium 135 mmol/L (137-145)
[2021-10-09 21:49] LABS: Glucose Point of Care 202 mg/dl (65-105)
[2021-10-09] MEDS: POTASSIUM CHLORIDE 20 MEQ PACKET (FOR LIQUID) 40 MEQ FEED TUBE (22:25)
[2021-10-10] VITALS (38 sets, daily range): BP systolic 91–146; BP diastolic 50–80; PULSE 47–71; RESP 14–20; TEMP 32.2–37; O2SAT 97–100
[2021-10-10] MEDS: VANCOMYCIN ORAL 125 MG/2.5 ML SYRUP PO ×4 (00:48→19:01)
[2021-10-10 01:01] LABS: Glucose Point of Care 137 mg/dl (65-105)
[2021-10-10 01:02] LABS: Hematocrit 24.6 % (42.0-52.0); Hemoglobin 7.9 g/dL (14.0-18.0)
[2021-10-10] MEDS: POTASSIUM CHLORIDE 20 MEQ PACKET (FOR LIQUID) 40 MEQ FEED TUBE (02:25)
[2021-10-10 03:44] LABS: Creatinine Urine 121.9 mg/dL
[2021-10-10 03:52] LABS: Sodium Urine Random 33 meq/L
[2021-10-10 03:54] LABS: Total Protein Urine Random 536 mg/dL
[2021-10-10 06:02] LABS: Alveolar/Arterial O2 Gradient 82.4 mmHg; Carboxyhemoglobin 0.3 % THb (0-2.0); Fractional Inspired Oxygen 30 %; HCO3 ABG 15.6 mEq/l (22.0-26.0); Methemoglobin ABG 0.4 %THb (0-1.5); Oxygen Content ABG 11.9 %vol (16.0-22.0); Oxygen Saturation ABG 97.8 % (95.0-100.0); Oxyhemoglobin 95.9 % THb (90.0-100.0); PCO2 ABG 25.6 mmHg (35.0-45.0); PO2 ABG 101.4 mmHg (80.0-100.0); PO2 FiO2 Ratio Arterial Blood 3.38 %; Reduced Hemoglobin 3.4 %THb (0-5.0); Total Hemoglobin 8.7 g/dL (12.0-18.0); pH ABG 7.404 (7.350-7.450)
[2021-10-10 06:04] LABS: Arterial Blood Gas PEEP 8 cmH2O; Arterial Blood Gas Vent Mode CMV; Arterial Blood Gas Ventilator rate 20 /MIN; Device VENTILATOR; Modified Allen's Test Pass; Site Drawn RIGHT RADIAL
[2021-10-10 06:05] LABS: Arterial Blood Gas Tidal Volume 450 ml
[2021-10-10 06:25] LABS: Hematocrit 25.4 % (42.0-52.0); Hemoglobin 8.1 g/dL (14.0-18.0); Immature Platelet Fraction Pct 6.9 % (0.9-11.2); Mean Corpuscular HGB Conc 31.9 g/dl (32-36); Mean Corpuscular Volume 94.1 fl (80-100); Mean Platelet Volume 11.1 fl (7.4-10.4); Platelet Count Result 102 k/mm3 (150-375); Red Cell Distribution Width 17.3 % (11.5-14.5); White Blood Count 8.6 K/mm3 (4.5-10.0)
[2021-10-10 06:34] LABS: Anion Gap 11 mmol/L (8-16); Blood Urea Nitrogen 75 mg/dL (9-20); Calcium 6.7 mg/dL (8.4-10.2); Carbon Dioxide 18 mmol/L (22-30); Chloride 106 mmol/L (98-107); Estimated CRCL calculation 8 ml/min; Estimated Glomerular Filt Rate 7; Glucose 154 mg/dL (65-110); Phosphorus 5.1 mg/dL (2.5-4.5); Potassium 4.1 mmol/L (3.4-5.0); Sodium 135 mmol/L (137-145)
--- NOTE | 2021-10-10 07:16 | PHAR ---
VERSED RATE OF 50MG/HR ON 10/10/21 WAS AN ERROR - RN CORRECTED TO 1MG/HR VIA PHARMACIST COMMUNICATION
[2021-10-10 07:43] LABS: Hepatitis B Surface Antigen Negative (Negative)
[2021-10-10 08:15] LABS: Hepatitis B Surface Anti Res Negative
[2021-10-10 08:30] LABS: Hepatitis C Virus Antibody Negative (Negative)
[2021-10-10 08:37] LABS: Glucose Point of Care 159 mg/dl (65-105)
--- NOTE | 2021-10-10 08:42 | WPDANESPN ---
Anes - Prog Note Post-Op Date/Time: 10/10/21 08:42 Vital Signs: Last Vital Signs Temp 36.3 C L 10/10/21 04:00 Pulse 50 L 10/10/21 06:00 Resp 20 10/10/21 06:00 BP 104/52 L 10/10/21 06:00 Pulse Ox 100 10/10/21 06:00 O2 Del Method Mechanical Ventilation 10/10/21 05:40 O2 Flow Rate 1 10/08/21 20:27 FiO2 30 10/10/21 05:40 Pain Score (VAS): 0 I/O: Intake & Output 10/09/21 10/10/21 10/10/21 23:59 07:59 15:59 Intake Total 492 Output Total 200 505 Balance -200 -13 Laboratory Tests 10/10/21 05:51 10/10/21 05:51 10/09/21 10/09/21 10/09/21 06:08 06:08 07:32 WBC RBC Hgb Hct MCV MCH MCHC RDW Plt Count MPV % Immature Plt Fraction Puncture Site ABG pH ABG pCO2 ABG pO2 ABG PO2/FiO2 Ratio ABG HCO3 ABG O2 Saturation ABG O2 Content ABG Base Excess A-a Gradient Oxyhemoglobin Carboxyhemoglobin Methemoglobin Reduced Hemoglobin Total Hemoglobin O2 Delivery Device O2 Liters/Min Minute Volume Vent Rate Vent Mode FiO2 Tidal Volume PEEP Peak Inspir Pressure Pressure Support Sodium Potassium Chloride Carbon Dioxide Anion Gap BUN Creatinine Estim Creat Clear Calc Estimated GFR Glucose POC Capillary Glucose Calcium Phosphorus Magnesium Urine Osmolality U Random Total Protein Ur Random Sodium Ur 24 Hour Volume Urine Creatinine U Protein 24 Hr Presump Protein/Creat Ratio 2 U [place] Chn Jocelyne 24hr U Tot [place] Light 24h U Lambda Chn Jocelyne 24h U Tot Lambda Light 24h Ur LETICIA Interpret 24 hr Free [place] & Lambda LC Hep Bs Antigen Negative Hep Bs Antibody Negative Hep B Core Total Ab Hepatitis C Ab Screen Negative Ur L.pneumophila Ag Urine Pneumococcal Ag Blood Type A Positive Antibody Screen Negative Crossmatch See Detail 10/09/21 10/09/21 10/09/21 11:13 12:38 15:31 WBC RBC Hgb Hct MCV MCH MCHC RDW Plt Count MPV % Immature Plt Fraction Puncture Site Right radial ABG pH 7.275 L* ABG pCO2 41.6 ABG pO2 70.8 L ABG PO2/FiO2 Ratio 2.53 ABG HCO3 18.9 L ABG O2 Saturation 92.2 L ABG O2 Content 11.4 L ABG Base Excess -7.4 A-a Gradient 79.8 Oxyhemoglobin 91.6 Carboxyhemoglobin Methemoglobin Reduced Hemoglobin Total Hemoglobin 8.8 L O2 Delivery Device Nasal cannula O2 Liters/Min 2.0 Minute Volume Vent Rate Vent Mode FiO2 28 Tidal Volume PEEP Peak Inspir Pressure Pressure Support Sodium Potassium Chloride Carbon Dioxide Anion Gap BUN Creatinine Estim Creat Clear Calc Estimated GFR Glucose POC Capillary Glucose 220 H 273 H Calcium Phosphorus Magnesium Urine Osmolality U Random Total Protein Ur Random Sodium Ur 24 Hour Volume Urine Creatinine U Protein 24 Hr Presump Protein/Creat Ratio 2 U [place] Chn Jocelyne 24hr U Tot [place] Light 24h U Lambda Chn Jocelyne 24h U Tot Lambda Light 24h Ur LETICIA Interpret 24 hr Free [place] & Lambda LC Hep Bs Antigen Hep Bs Antibody Hep B Core Total Ab Hepatitis C Ab Screen Ur L.pneumophila Ag Urine Pneumococcal Ag Blood Type Antibody Screen Crossmatch 10/09/21 10/09/21 10/09/21 16:15 18:08 20:53 WBC RBC Hgb 7.9 L Hct 25.1 L MCV MCH MCHC RDW Plt Count MPV % Immature Plt Fraction Puncture Site Right radial ABG pH 7.367 ABG pCO2 30.9 L ABG pO2 468.1 H ABG PO2/FiO2 Ratio 4.68 ABG HCO3 17.3 L ABG O2 Saturation 99.9 ABG O2 Content 13.6 L ABG Base Excess -7.1 A-a Gradient 214.0 Oxyhemoglobin 98.0 Carboxyhemoglobin 0.2 Methemoglobin 0.6 Reduced Hemoglobin 1.2 Total Hemoglobin 8.9 L O2 Delivery Device
[2021-10-10] MEDS: MINERAL OIL/WHITE PETROLATUM OINTMENT 1 APPLIC EACH EYE ×2 (08:51→20:44)
[2021-10-10] MEDS: DONEPEZIL HCL 10 MG TABLET PO (08:51)
[2021-10-10] MEDS: PANTOPRAZOLE SODIUM IV 40 MG VIAL IV PUSH ×2 (08:51→20:44)
[2021-10-10] MEDS: POTASSIUM CHLORIDE 20 MEQ TABLET.ER 40 MEQ PO (08:52)
[2021-10-10] MEDS: FERROUS SULFATE 324 MG TABLET PO (08:53)
[2021-10-10] MEDS: INSULIN GLARGINE (*BKC) 100 UNITS/ML 10 UNITS SUB-Q (08:59)
[2021-10-10] MEDS: ASPIRIN 325 MG TABLET FEED TUBE (09:00)
[2021-10-10] MEDS: ENOXAPARIN 30 MG/0.3 ML SYRINGE SUB-Q (09:00)
[2021-10-10] MEDS: CALCIUM ACETATE 667 MG TABLET PO ×3 (09:00→19:04)
[2021-10-10 09:25] LABS: Glucose Point of Care 190 mg/dl (65-105)
--- NOTE | 2021-10-10 10:41 | WPDINTPN ---
Progress Note: A&P Assessment and Plan (1) Acute respiratory failure: Code(s): J96.00 - Acute respiratory failure, unspecified whether with hypoxia or hypercapnia Status: Acute Assessment and Plan: Multifactorial Acute Respiratory failure secondary to pulmonary edema, COVID-19, general anesthesia Continue full mechanical ventilation support to prevent hypoxemia/hypercarbia and end organ damage. ABG reviewed and patient currently on 8 of PEEP and 40% FiO2 clear will decrease PEEP to 5 Chest x-ray reviewed and advance ET tube by 2 cm Will attempt a weaning trial after hemodialysis today Bronchodilators (2) C. difficile diarrhea: Code(s): A04.72 - Enterocolitis due to Clostridium difficile, not specified as recurrent Status: Acute Assessment and Plan: Patient presented with diarrhea, dehydration, C diff was positive on 10/07 -continue oral vancomycin - Xifaxan discontinued -GI following -diarrhea seems to be improving -normal WBC and afebrile -continue tube feeding (3) COVID-19: Code(s): U07.1 - COVID-19 Status: Acute Assessment and Plan: Patient tested positive for COVID on 10/06/2021 -patient currently on dexamethasone, not a candidate for remdesivir or baricitinib due to acute renal failure -continue ceftriaxone and azithromycin for 5 days for possible pneumonia (4) Tyksx-dv-zremcdn kidney injury: Qualifiers: Acute renal failure type: unspecified Chronic kidney disease stage: stage 3 (moderate) Chronic kidney disease stage 3 subtype: stage 3b (GFR 30-44) Qualified Code(s): N17.9 - Acute kidney failure, unspecified; N18.32 - Chronic kidney disease, stage 3b Code(s): N17.9 - Acute kidney failure, unspecified; N18.9 - Chronic kidney disease, unspecified Status: Acute Assessment and Plan: Acute kidney injury on chronic kidney disease, creatinine is elevated 7.6 likely related to hypovolemia/dehydration secondary to diarrhea, also patient on furosemide and Coreg at home which could have dropped his blood pressures dehydrated. Also could be related UTI, cultures are pending -10/08/2021 renal ultrasound, showed unremarkable kidneys without hydronephrosis -CK level was normal -nephrology is following -10/10 done hemodialysis catheter was placed -10/11 patient is getting his 1st session of dialysis (5) Anemia: Code(s): D64.9 - Anemia, unspecified Status: Acute Assessment and Plan: Patient has chronic anemia but hemoglobin has dropped to 6.7 on 10/09 In light of dark stools and colitis , anticoagulation was held and patient was transfuse 1 unit of PRBC -continue PPI to IV q.12 hours -q.6 hours hemoglobin monitoring and hemoglobin has been stable at this time -GI following and no plan for EGD at this time -OG tube suction does not show any bleeding at this time and no obvious blood in the stool (6) Acute hypokalemia: Code(s): E87.6 - Hypokalemia Status: Acute Assessment and Plan: Hypokalemia likely related to diarrhea from C diff Patient received potassium replacement last night currently on hemodialysis (7) Type 2 diabetes mellitus with hyperglycemia, without long-term current use of insulin: Code(s): E11.65 - Type 2 diabetes mellitus with hyperglycemia Status: Acute Assessment and Plan: Continue sliding scale insulin Accu-Cheks -patient on steroids, will continue monitor blood sugars -continue Lantus (8) Left leg DVT: Code(s): I82.402 - Acute embolism and thrombosis of unspecified deep veins of left lower extremity Status: Acute Assessment and Plan: 10/08/2021 lower extremity venous Dopplers: Small amount of right sided [id number] deep venous thrombosis at the proximal aspect of one of the paired posterior tibial veins at the right calf.. No deep venous necrosis in the left lower limb Heparin infusion was held due to drop in hemoglobin Patient was transfused and hemoglobi
--- NOTE | 2021-10-10 12:31 | PM.PNNEP ---
Progress Note: A&P Additional Plan 1.Miky has chronic kidney disease. His creatinine seems to run between 2 and 2.5. He has had episodes where his creatinine was high in the past and improved back to its baseline. Renal ultrasound is unremarkable. Urinalysis showed blood, protein, bilirubin, and white cells. He does have diabetes and hypertension as well as coronary disease so probably diabetes, hypertension, and vascular disease are affecting his kidneys. Await evaluation. 2. The patient has acute kidney injury on top of chronic. Urine culture is pending. Blood cultures no growth to date not making much urine, no urine 'lytes collected so far chest x-ray Shows bibasilar infiltrates. No pulmonary edema. Most likely ATN from C diff and COVID. Dehydration was probably playing a role early on but possibly not at this point. The patient has developed some swelling. I talked the dialysis nurse. She will do him 1st and try to get some fluid off to help wean from the ventilator if possible. 3. His potassium Is okay. 4. The patient has hyponatremia. This is chronic with a baseline sodium level in the mid 130s. Sodium is still in the 130s. This is probably due to his renal failure. He is at baseline for this. 5. The patient has anemia. Will keep an eye on this. Will start EPO. 6. The patient has coronary disease. No chest pain lately. 7. The patient has dementia. Subjective Date/time seen: 10/10/21 08:00 Interval history: the patient is on a ventilator now. He is sedated. Blood pressure was okay overnight. Exam Narrative: WDWN in NAD skin no rash head ncat lungs Coarse With ventilator noise. cor reg no rub or gallop abd BS+ nontender and soft ext 1+ edema. Objective Data Vital Signs Vital Signs: Vital Signs - 24 hr 10/09/21 12:43 10/09/21 15:26 10/09/21 15:26 Temperature 36.5 C Pulse Rate 75 56 L 55 L Respiratory Rate 26 H 20 20 Blood Pressure 162/81 H Pulse Oximetry 100 Oxygen Delivery Fraction of Inspired Oxygen 10/09/21 15:05 10/09/21 15:58 10/09/21 15:45 Temperature Pulse Rate 67 53 L 57 L Respiratory Rate 20 20 Blood Pressure Pulse Oximetry 100 Oxygen Delivery Mechanical Ventilation Fraction of Inspired Oxygen 100 10/09/21 17:35 10/09/21 16:00 10/09/21 18:00 Temperature 36.6 C 36.8 C Pulse Rate 67 54 L 62 Respiratory Rate 20 21 H Blood Pressure 145/70 H 145/70 H Pulse Oximetry 100 100 100 Oxygen Delivery Mechanical Ventilation Fraction of Inspired Oxygen 50 10/09/21 16:00 10/09/21 16:00 10/09/21 18:00 Temperature Pulse Rate 56 L 55 L Respiratory Rate Blood Pressure Pulse Oximetry Oxygen Delivery Room Air Fraction of Inspired Oxygen 10/09/21 18:00 10/09/21 19:45 10/09/21 20:45 Temperature Pulse Rate 52 L Respiratory Rate Blood Pressure Pulse Oximetry 100 100 Oxygen Delivery Mechanical Ventilation Mechanical Ventilation Fraction of Inspired Oxygen 50 50 50 10/09/21 20:45 10/09/21 20:00 10/09/21 20:00 Temperature 36.0 C L Pulse Rate 52 L 52 L Respiratory Rate 20 20 Blood Pressure 143/66 H Pulse Oximetry 100 100 Oxygen Delivery Mechanical Ventilation Fraction of Inspired Oxygen 50 40 10/09/21 19:00 10/09/21 19:00 10/09/21 21:28 Temperature Pulse Rate 54 L 54 L 52 L Respiratory Rate 20 20 20 Blood Pressure Pulse Oximetry Oxygen Delivery Fraction of Inspired Oxygen 10/09/21 21:28 10/09/21 22:00 10/09/21 22:00 Temperature Pulse Rate 52 L 51 L 51 L Respiratory Rate 20 20 Blood Pressure 143/67 H Pulse Oximetry 100 Oxygen Delivery Fraction of Inspired Oxygen 10/09/21 20:00 10/09/21 22:40 10/09/21 22:40 Temperature Pulse Rate Respiratory Rate Blood Pressure Pulse Oximetry 100 100 Oxygen Delivery Mechanical Ventilation Mechanical Ventilation Fraction of Inspired Ox
[2021-10-10] MEDS: INSULIN ASPART (*BKC) 100 UNITS/ML SUB-Q ×2 (12:32→19:00)
[2021-10-10 12:54] LABS: Glucose Point of Care 208 mg/dl (65-105)
--- NOTE | 2021-10-10 13:31 | PCNFU ---
Nutrition Follow-Up Complete: Inadequate po intake related to mechanical ventilation as evidenced by NPO status Goal: Meet estimated needs Pt current nutrition is Nepro at 40ml/hr, goal rate. Nutrition recommendation: Continue with current plan of care. Last recorded weight is 93.3 kg - increased from 88kg. Bowel Motility: +BM, noted diarrhea Labs Reviewed: hgb:8.1, HCT:25.4, NA:135, BUN:75, CR:7.8, Glu:154 Meds Noted: lovenox, lantus, protonix Skin: maceration to coccyx Additional Notes: pt is now on mechanical ventilation. Noted new estimated needs per [facility] state: 1633kcals. Tube feeds running Nepro at 40ml/hr which provides 1584kcals, 71g protein. This is meeting 97% of caloric needs and 90% of protein needs. Pt is tolerating. Agree with orders. Monitor daily in ICU rounds, follow up every Thursday/Thursday.
[2021-10-10 15:00] LABS: Alveolar/Arterial O2 Gradient 89.7 mmHg; Base Excess ABG -1.4 mEq/l (+/-2.0); Carboxyhemoglobin 0.2 % THb (0-2.0); Fractional Inspired Oxygen 30 %; HCO3 ABG 23.3 mEq/l (22.0-26.0); Methemoglobin ABG 0.4 %THb (0-1.5); Oxygen Content ABG 13.7 %vol (16.0-22.0); Oxygen Saturation ABG 95.6 % (95.0-100.0); Oxyhemoglobin 93.8 % THb (90.0-100.0); PCO2 ABG 38.9 mmHg (35.0-45.0); PO2 ABG 78.5 mmHg (80.0-100.0); PO2 FiO2 Ratio Arterial Blood 2.62 %; Reduced Hemoglobin 5.6 %THb (0-5.0); Total Hemoglobin 10.3 g/dL (12.0-18.0); pH ABG 7.395 (7.350-7.450)
[2021-10-10 15:06] LABS: Modified Allen's Test Pass; Site Drawn RIGHT RADIAL
[2021-10-10 15:07] LABS: Device VENTILATOR
[2021-10-10 15:08] LABS: Arterial Blood Gas PEEP 5 cmH2O; Arterial Blood Gas Pressure Support 5 cmH2O; Arterial Blood Gas Vent Mode SPONTANEOUS
--- NOTE | 2021-10-10 15:12 | WPDGIPROGNO ---
Progress Note: A&P Assessment and Plan (1) C. difficile diarrhea: Code(s): A04.72 - Enterocolitis due to Clostridium difficile, not specified as recurrent Status: Acute Assessment and Plan: on treatment tolerating enteral feeding (2) Acute respiratory failure: Code(s): J96.00 - Acute respiratory failure, unspecified whether with hypoxia or hypercapnia Status: Acute Assessment and Plan: he had to be intubated, by primary team (3) Acute on chronic anemia: Code(s): D64.9 - Anemia, unspecified Status: Acute Assessment and Plan: hb responded to blood transfusion, low but stable no signs of overt gib no plan for scopes unless any changes (4) Severe protein-calorie malnutrition: Code(s): E43 - Unspecified severe protein-calorie malnutrition Status: Acute (5) COVID-19: Code(s): U07.1 - COVID-19 Status: Acute (6) Congestive heart failure: Code(s): I50.9 - Heart failure, unspecified Status: Acute (7) Type 2 diabetes mellitus with hyperglycemia, without long-term current use of insulin: Code(s): E11.65 - Type 2 diabetes mellitus with hyperglycemia Status: Acute (8) Acute kidney failure: Qualifiers: Acute renal failure type: unspecified Qualified Code(s): N17.9 - Acute kidney failure, unspecified Code(s): N17.9 - Acute kidney failure, unspecified Status: Acute Assessment and Plan: worsening renal failure, by nephrology Subjective Date/time seen: 10/10/21 15:12 Interval history: patient developed more respiratory distress after dialysis catheter placement and intubated. Hb stable, no signs of overt gib. Still sick, tolerating tube feeding at 40ml/h Review of Systems Review of Systems: All systems reviewed & are unremarkable except as noted in HPI and below Exam Narrative: General: Pt is sedated, intubated and on mechanical ventilation Lungs/Chest: Trachea central Coarse BS B/L, No crackles or wheezing. Right IJ tunnel dialysis catheter Cardiac: RRR. Normal S1 S2. No murmurs Circulation: Pedal pulses are intact and symmetrical. Abdomen: Decreased bowel sounds. Obese. Soft. NT. ND. Extremities: No clubbing, cyanosis or edema. Warm : Jackson in place Neurologic: Unable to assess due to sedation. Moves all 4 extremities to painful stimuli. PERRL Objective Data Vital Signs Vital Signs: Vital Signs - 24 hr 10/09/21 15:26 10/09/21 15:26 10/09/21 15:58 Temperature Pulse Rate 56 L 55 L 53 L Respiratory Rate 20 20 20 Blood Pressure Pulse Oximetry Oxygen Delivery Fraction of Inspired Oxygen 10/09/21 15:45 10/09/21 17:35 10/09/21 16:00 Temperature 97.9 F Pulse Rate 57 L 67 54 L Respiratory Rate 20 20 Blood Pressure 145/70 H Pulse Oximetry 100 100 Oxygen Delivery Mechanical Ventilation Fraction of Inspired Oxygen 50 10/09/21 18:00 10/09/21 16:00 10/09/21 16:00 Temperature 98.2 F Pulse Rate 62 56 L Respiratory Rate 21 H Blood Pressure 145/70 H Pulse Oximetry 100 Oxygen Delivery Room Air Fraction of Inspired Oxygen 10/09/21 18:00 10/09/21 18:00 10/09/21 19:45 Temperature Pulse Rate 55 L Respiratory Rate Blood Pressure Pulse Oximetry 100 Oxygen Delivery Mechanical Ventilation Fraction of Inspired Oxygen 50 50 10/09/21 20:45 10/09/21 20:45 10/09/21 20:00 Temperature 96.8 F L Pulse Rate 52 L 52 L 52 L Respiratory Rate 20 20 Blood Pressure 143/66 H Pulse Oximetry 100 100 100 Oxygen Delivery Mechanical Ventilation Mechanical Ventilation Fraction of Inspired Oxygen 50 50 10/09/21 20:00 10/09/21 19:00 10/09/21 19:00 Temperature Pulse Rate 54 L 54 L Respiratory Rate 20 20 Blood Pressure Pulse Oximetry Oxygen Delivery Fraction of Inspired Oxygen 40 10/09/21 21:28 10/09/21 21:28 10/09/21 22:00 Temperature Pulse Rate 52 L 52 L 51 L Respiratory Rate 20 20
[2021-10-10 19:10] LABS: Glucose Point of Care 215 mg/dl (65-105)
[2021-10-10] MEDS: CELLULOSE OXIDIZED 2 x 14 INCH 1 PKT XX (20:44)
[2021-10-10] MEDS: ROSUVASTATIN 10 MG TABLET 20 MG PO (20:44)
[2021-10-10 21:06] LABS: Glucose Point of Care 179 mg/dl (65-105)
[2021-10-11] VITALS (30 sets, daily range): BP systolic 111–160; BP diastolic 55–88; PULSE 66–84; RESP 15–24; TEMP 36.1–37; O2SAT 93–100
[2021-10-11] MEDS: VANCOMYCIN ORAL 125 MG/2.5 ML SYRUP PO ×4 (00:58→17:14)
[2021-10-11 01:49] LABS: Glucose Point of Care 155 mg/dl (65-105)
[2021-10-11 05:13] LABS: Albumin Level 2.6 g/dL (3.5-5.1); Anion Gap 6 mmol/L (8-16); Blood Urea Nitrogen 54 mg/dL (9-20); Calcium 7.3 mg/dL (8.4-10.2); Carbon Dioxide 26 mmol/L (22-30); Chloride 102 mmol/L (98-107); Estimated CRCL calculation 10 ml/min; Estimated Glomerular Filt Rate 9; Glucose 177 mg/dL (65-110); Phosphorus 4.4 mg/dL (2.5-4.5); Potassium 3.6 mmol/L (3.4-5.0); Sodium 134 mmol/L (137-145)
[2021-10-11 05:44] LABS: Glucose Point of Care 188 mg/dl (65-105)
[2021-10-11 06:31] LABS: Alveolar/Arterial O2 Gradient 79.1 mmHg; Base Excess ABG -1.1 mEq/l (+/-2.0); Carboxyhemoglobin 0.2 % THb (0-2.0); Fractional Inspired Oxygen 32 %; HCO3 ABG 24.7 mEq/l (22.0-26.0); Methemoglobin ABG 0.5 %THb (0-1.5); Oxygen Content ABG 14.9 %vol (16.0-22.0); Oxygen Saturation ABG 96.9 % (95.0-100.0); Oxyhemoglobin 95.6 % THb (90.0-100.0); PCO2 ABG 45.9 mmHg (35.0-45.0); PO2 ABG 95.4 mmHg (80.0-100.0); PO2 FiO2 Ratio Arterial Blood 2.98 %; Reduced Hemoglobin 3.7 %THb (0-5.0); pH ABG 7.349 (7.350-7.450)
[2021-10-11 06:32] LABS: Device NASAL CANNULA; Modified Allen's Test Pass; Site Drawn RIGHT RADIAL
--- NOTE | 2021-10-11 08:05 | PM.PNNEP ---
Progress Note: A&P Additional Plan 1.Miky has chronic kidney disease. His creatinine seems to run between 2 and 2.5. He has had episodes where his creatinine was high in the past and improved back to its baseline. Renal ultrasound is unremarkable. Urinalysis showed blood, protein, bilirubin, and white cells. He does have diabetes and hypertension as well as coronary disease so probably diabetes, hypertension, and vascular disease are affecting his kidneys. 2. The patient has acute kidney injury on top of chronic. Urine culture shows polymicrobial growth. Blood cultures no growth to date not making much urine, no urine 'lytes collected so far chest x-ray Shows bibasilar infiltrates. No pulmonary edema. Most likely ATN from C diff and COVID. Dehydration was probably playing a role early on but possibly not at this point. The patient has developed some swelling. I talked the dialysis nurse. She will remove about 2 or 3L of fluid. 3. His potassium Is okay. 4. The patient has hyponatremia. This is chronic with a baseline sodium level in the mid 130s. Sodium is still in the 130s. This is probably due to his renal failure. He is at baseline for this. 5. The patient has anemia. Will keep an eye on this. Will start EPO. 6. The patient has coronary disease. No chest pain lately. 7. The patient has dementia. Subjective Date/time seen: 10/11/21 08:05 Interval history: the patient is on a ventilator now. He is sedated. Blood pressure doing better. Systolic in the 150s. He was seen on dialysis and tolerating well. He was seen at 8:05 a.m. Exam Narrative: WDWN in NAD skin no rash head ncat lungs Coarse bilaterally cor reg no rub or gallop abd BS+ nontender and soft ext 1+ edema Objective Data Vital Signs Vital Signs: Vital Signs - 24 hr 10/10/21 14:00 10/10/21 14:00 10/10/21 17:24 Temperature Pulse Rate 65 65 65 Respiratory Rate 14 Blood Pressure 135/54 L Pulse Oximetry 100 100 Oxygen Delivery Mechanical Ventilation Oxygen Flow Rate Fraction of Inspired Oxygen 30 10/10/21 16:00 10/10/21 16:00 10/10/21 16:00 Temperature 36.4 C L Pulse Rate 60 60 Respiratory Rate 14 Blood Pressure 128/65 Pulse Oximetry 100 100 Oxygen Delivery CPAP Oxygen Flow Rate Fraction of Inspired Oxygen 10/10/21 18:00 10/10/21 18:00 10/10/21 20:00 Temperature Pulse Rate 65 66 68 Respiratory Rate 17 Blood Pressure 127/68 Pulse Oximetry 100 Oxygen Delivery Oxygen Flow Rate Fraction of Inspired Oxygen 10/10/21 20:00 10/10/21 20:00 10/10/21 20:59 Temperature 35.9 C L Pulse Rate 65 65 66 Respiratory Rate 16 16 Blood Pressure 142/73 H Pulse Oximetry 100 100 100 Oxygen Delivery Mechanical Ventilation Mechanical Ventilation Oxygen Flow Rate Fraction of Inspired Oxygen 30 10/10/21 22:22 10/10/21 22:24 10/10/21 22:00 Temperature Pulse Rate 71 66 Respiratory Rate 14 16 Blood Pressure 146/56 H Pulse Oximetry 98 100 Oxygen Delivery Nasal Cannula Oxygen Flow Rate 3 Fraction of Inspired Oxygen 10/10/21 22:00 10/11/21 00:00 10/11/21 00:00 Temperature 36.1 C L Pulse Rate 67 71 67 Respiratory Rate 16 Blood Pressure 111/88 Pulse Oximetry 100 Oxygen Delivery Oxygen Flow Rate Fraction of Inspired Oxygen 10/11/21 00:00 10/11/21 02:00 10/11/21 02:00 Temperature Pulse Rate 67 71 71 Respiratory Rate 16 16 Blood Pressure 144/77 H Pulse Oximetry 100 100 Oxygen Delivery Nasal Cannula Oxygen Flow Rate 3 Fraction of Inspired Oxygen 10/11/21 04:00 10/11/21 04:00 10/11/21 04:00 Temperature 36.2 C L Pulse Rate 69 69 68 Respiratory Rate 16 15 Blood Pressure 157/84 H Pulse Oximetry 100 100 Oxygen Delivery Nasal Cannula Oxygen Flow Rate 3 Fraction of Inspired Oxygen 10/11/21 05:30 10/11/21 05:31 10/11/21 08:39 [facility]
[2021-10-11] MEDS: EPOETIN ALFA-EPBX 10,000 UNITS/ML VIAL 10000 UNITS IV PUSH (09:23)
[2021-10-11] MEDS: CALCIUM ACETATE 667 MG TABLET PO ×2 (09:28→17:17)
[2021-10-11] MEDS: PANTOPRAZOLE SODIUM IV 40 MG VIAL IV PUSH (09:28)
[2021-10-11] MEDS: FERROUS SULFATE 324 MG TABLET PO (09:28)
[2021-10-11] MEDS: POTASSIUM CHLORIDE 20 MEQ TABLET.ER 40 MEQ PO (09:28)
[2021-10-11] MEDS: DONEPEZIL HCL 10 MG TABLET PO (09:28)
[2021-10-11] MEDS: ASPIRIN 325 MG TABLET FEED TUBE (09:29)
[2021-10-11] MEDS: ENOXAPARIN 30 MG/0.3 ML SYRINGE SUB-Q (09:29)
[2021-10-11 09:38] LABS: Hematocrit 30.4 % (42.0-52.0); Hemoglobin 9.5 g/dL (14.0-18.0); Mean Corpuscular HGB Conc 31.3 g/dl (32-36); Mean Corpuscular Hemoglobin 29.6 pg (26-34); Mean Corpuscular Volume 94.7 fl (80-100); Mean Platelet Volume 11.5 fl (7.4-10.4); Platelet Count Result 104 k/mm3 (150-375); Red Blood Count 3.21 M/mm3 (4.6-6.20); Red Cell Distribution Width 17.2 % (11.5-14.5); White Blood Count 15.7 K/mm3 (4.5-10.0)
[2021-10-11 10:27] LABS: Glucose Point of Care 137 mg/dl (65-105)
--- NOTE | 2021-10-11 10:51 | PCFNICU ---
ICU Rounding Note: Pt current nutrition is NPO at this time. Nutrition recommendation: Initiate diet when appropriate - diabetic consistent carb Last recorded weight is 85 kg - stable with admit wt of 86.9kg. Bowel Motility: +BM 10/11 Labs Reviewed: alb:2.6, NA:134, BUN:54, Cre:5.8, gluc:188 Meds Noted: protonix, phoslo, novolog. lantus Skin: maceration to buttocks Additional Notes: Pt is npo at this time, extubated and tube feeds discontinued. Pt is moving down to IMU and will start on po diet. Agree with diet order and plans for advancement. Monitor diet order, intake, wt, labs, bowel function. Follow up in 5 days.
--- NOTE | 2021-10-11 12:17 | WPDINTPN ---
Progress Note: A&P Assessment and Plan (1) Acute respiratory failure: Code(s): J96.00 - Acute respiratory failure, unspecified whether with hypoxia or hypercapnia Status: Acute Assessment and Plan: Multifactorial Acute Respiratory failure secondary to pulmonary edema, COVID-19, general anesthesia Patient was extubated after a weaning trial Maintaining oxygenation on nasal cannula Incentive spirometry (2) C. difficile diarrhea: Code(s): A04.72 - Enterocolitis due to Clostridium difficile, not specified as recurrent Status: Acute Assessment and Plan: Patient presented with diarrhea, dehydration, C diff was positive on 10/07 -continue oral vancomycin - Xifaxan discontinued -GI following -diarrhea seems to be improving and will remove FMS if stool is formed -resume and advance diet (3) COVID-19: Code(s): U07.1 - COVID-19 Status: Acute Assessment and Plan: Patient tested positive for COVID on 10/06/2021 -patient currently on dexamethasone, not a candidate for remdesivir or baricitinib due to acute renal failure -continue course ceftriaxone and azithromycin for possible pneumonia (4) Dxrio-lg-unmzomh kidney injury: Qualifiers: Acute renal failure type: unspecified Chronic kidney disease stage: stage 3 (moderate) Chronic kidney disease stage 3 subtype: stage 3b (GFR 30-44) Qualified Code(s): N17.9 - Acute kidney failure, unspecified; N18.32 - Chronic kidney disease, stage 3b Code(s): N17.9 - Acute kidney failure, unspecified; N18.9 - Chronic kidney disease, unspecified Status: Acute Assessment and Plan: Acute kidney injury on chronic kidney disease, creatinine is elevated 7.6 likely related to hypovolemia/dehydration secondary to diarrhea, also patient on furosemide and Coreg at home which could have dropped his blood pressures dehydrated. Also could be related UTI, cultures are pending -10/08/2021 renal ultrasound, showed unremarkable kidneys without hydronephrosis -CK level was normal -nephrology is following -10/10 done hemodialysis catheter was placed and patient was dialyzed -10/11 patient receiving 2nd session of dialysis today with plan to remove 2.5 L of fluid (5) Anemia: Code(s): D64.9 - Anemia, unspecified Status: Acute Assessment and Plan: Patient has chronic anemia but hemoglobin has dropped to 6.7 on 7/6 In light of dark stools and colitis , anticoagulation was held and patient was transfuse 1 unit of PRBC -continue PPI to IV q.12 hours -since then hemoglobin has been stable -GI following and no plan for EGD at this time -OG tube suction does not show any bleeding at this time and no obvious blood in the stool (6) Acute hypokalemia: Code(s): E87.6 - Hypokalemia Status: Acute Assessment and Plan: Hypokalemia likely related to diarrhea from C diff Patient received potassium replacement last night currently on hemodialysis (7) Type 2 diabetes mellitus with hyperglycemia, without long-term current use of insulin: Code(s): E11.65 - Type 2 diabetes mellitus with hyperglycemia Status: Acute Assessment and Plan: Continue sliding scale insulin Accu-Cheks -patient on steroids, will continue monitor blood sugars -continue Lantus (8) Left leg DVT: Code(s): I82.402 - Acute embolism and thrombosis of unspecified deep veins of left lower extremity Status: Acute Assessment and Plan: 10/08/2021 lower extremity venous Dopplers: Small amount of right sided [id number] deep venous thrombosis at the proximal aspect of one of the paired posterior tibial veins at the right calf.. No deep venous necrosis in the left lower limb Heparin infusion was held due to drop in hemoglobin Patient was transfused and hemoglobin is now stable Patient was started on prophylactic dose of Lovenox but I will hold today as patient continues to lose from the dialysis catheter site GI is following (9)
--- NOTE | 2021-10-11 12:50 | PCOTNOTE ---
Attempted to see pt for occupational therapy tx at 12:50pm. Per RN, pt is very weak at this time and will not be appropriate for occupational therapy tx. Will continue per poc duration/frequency tomorrow.
--- NOTE | 2021-10-11 12:57 | PCPTNOTE ---
The patient treatment was not able to be completed on 10/11/2021. Per CARLOS A RN reported patient is very weak from dialysis and not appropriate for therapy. Will plan to continue treatment per plan of care.
[2021-10-11 13:25] LABS: Glucose Point of Care 177 mg/dl (65-105)
[2021-10-11 13:38] LABS: Complement Total CH50 60 U/mL (31-60)
[2021-10-11 16:05] LABS: Alveolar/Arterial O2 Gradient 61.3 mmHg; Base Excess ABG -0.8 mEq/l (+/-2.0); Carboxyhemoglobin 0.2 % THb (0-2.0); Fractional Inspired Oxygen 24 %; HCO3 ABG 23.3 mEq/l (22.0-26.0); Methemoglobin ABG 0.4 %THb (0-1.5); Oxygen Content ABG 15.3 %vol (16.0-22.0); Oxygen Saturation ABG 93.5 % (95.0-100.0); Oxyhemoglobin 92.6 % THb (90.0-100.0); PCO2 ABG 36.9 mmHg (35.0-45.0); PO2 ABG 65.9 mmHg (80.0-100.0); PO2 FiO2 Ratio Arterial Blood 2.75 %; Reduced Hemoglobin 6.8 %THb (0-5.0); Total Hemoglobin 11.7 g/dL (12.0-18.0); pH ABG 7.419 (7.350-7.450)
[2021-10-11 16:06] LABS: Device NASAL CANNULA; Modified Allen's Test Pass; Site Drawn RIGHT RADIAL
[2021-10-11] MEDS: INSULIN ASPART (*BKC) 100 UNITS/ML SUB-Q (17:16)
[2021-10-11 17:41] LABS: Glucose Point of Care 261 mg/dl (65-105)
[2021-10-11 20:07] LABS: Glucose Point of Care 202 mg/dl (65-105)
[2021-10-11] MEDS: ROSUVASTATIN 10 MG TABLET 20 MG PO (21:43)
[2021-10-11 23:41] LABS: Glucose Point of Care 210 mg/dl (65-105)
[2021-10-12] VITALS (25 sets, daily range): BP systolic 109–178; BP diastolic 72–96; PULSE 76–101; RESP 18–24; TEMP 36.2–36.6; O2SAT 93–99
[2021-10-12] MEDS: PANTOPRAZOLE SODIUM IV 40 MG VIAL IV PUSH ×3 (00:27→21:30)
[2021-10-12] MEDS: VANCOMYCIN ORAL 125 MG/2.5 ML SYRUP PO ×3 (00:27→17:37)
[2021-10-12 05:28] LABS: Albumin Level 2.9 g/dL (3.5-5.1); Anion Gap 7 mmol/L (8-16); Blood Urea Nitrogen 43 mg/dL (9-20); Calcium 7.8 mg/dL (8.4-10.2); Carbon Dioxide 26 mmol/L (22-30); Chloride 101 mmol/L (98-107); Estimated CRCL calculation 12 ml/min; Estimated Glomerular Filt Rate 11; Glucose 182 mg/dL (65-110); Phosphorus 2.9 mg/dL (2.5-4.5); Potassium 3.9 mmol/L (3.4-5.0); Sodium 134 mmol/L (137-145)
[2021-10-12 08:47] LABS: Glucose Point of Care 189 mg/dl (65-105)
[2021-10-12] MEDS: POTASSIUM CHLORIDE 20 MEQ TABLET.ER 40 MEQ PO (09:55)
[2021-10-12] MEDS: DONEPEZIL HCL 10 MG TABLET PO (09:55)
[2021-10-12] MEDS: FERROUS SULFATE 324 MG TABLET PO (09:55)
[2021-10-12] MEDS: CALCIUM ACETATE 667 MG TABLET PO ×2 (09:56→16:27)
--- NOTE | 2021-10-12 10:19 | PM.PNNEP ---
Progress Note: A&P Additional Plan 1.Miky has chronic kidney disease. His creatinine seems to run between 2 and 2.5. He has had episodes where his creatinine was high in the past and improved back to its baseline. Renal ultrasound is unremarkable. Urinalysis showed blood, protein, bilirubin, and white cells. He does have diabetes and hypertension as well as coronary disease so probably diabetes, hypertension, and vascular disease are affecting his kidneys. 2. The patient has acute kidney injury on top of chronic. Urine culture shows polymicrobial growth. Blood cultures no growth to date not making much urine, no urine 'lytes collected so far chest x-ray Shows bibasilar infiltrates. No pulmonary edema. Most likely ATN from C diff and COVID. Dehydration was probably playing a role early on but possibly not at this point. The patient has developed some swelling. Remove fluid as tolerated. 3. His potassium Is okay. 4. The patient has hyponatremia. This is chronic with a baseline sodium level in the mid 130s. His numbers are stable. 5. The patient has anemia. Will keep an eye on this. He is on Epogen. 6. The patient has coronary disease. No chest pain lately. 7. The patient has dementia. Subjective Date/time seen: 10/12/21 10:19 Interval history: the patient is off the ventilator and out of the ICU. He feels blah today. Systolic in the 150s. He is due for dialysis today. Exam Narrative: WDWN in NAD skin no rash or subQ nodules head ncat lungs Coarse bilaterally cor reg no rub or gallop abd BS+ nontender and soft ext 1+ edema and no cyanosis Objective Data Vital Signs Vital Signs: Vital Signs - 24 hr 10/11/21 10:20 10/11/21 10:40 10/11/21 11:00 Temperature Pulse Rate 78 79 78 Respiratory Rate Blood Pressure 146/82 H 133/81 119/78 Pulse Oximetry Oxygen Delivery Oxygen Flow Rate 10/11/21 11:20 10/11/21 11:39 10/11/21 11:49 Temperature 36.7 C Pulse Rate 83 79 79 Respiratory Rate 18 Blood Pressure 116/75 115/72 122/76 Pulse Oximetry 100 Oxygen Delivery Oxygen Flow Rate 10/11/21 13:00 10/11/21 13:06 10/11/21 18:43 Temperature 36.3 C L Pulse Rate 78 71 74 Respiratory Rate 17 16 Blood Pressure 149/66 H Pulse Oximetry 94 Oxygen Delivery Oxygen Flow Rate 10/11/21 18:00 10/11/21 12:00 10/11/21 16:00 Temperature Pulse Rate 70 Respiratory Rate Blood Pressure Pulse Oximetry 100 100 Oxygen Delivery Nasal Cannula Nasal Cannula Oxygen Flow Rate 3 3 10/11/21 12:00 10/11/21 14:00 10/11/21 16:00 Temperature Pulse Rate 71 70 72 Respiratory Rate Blood Pressure Pulse Oximetry Oxygen Delivery Oxygen Flow Rate 10/11/21 19:41 10/11/21 20:00 10/11/21 20:00 Temperature 36.6 C Pulse Rate 76 76 Respiratory Rate 24 H Blood Pressure 152/75 H Pulse Oximetry 93 93 Oxygen Delivery Room Air Oxygen Flow Rate 10/11/21 22:00 10/11/21 23:42 10/12/21 00:00 Temperature 36.6 C Pulse Rate 75 78 76 Respiratory Rate 20 Blood Pressure 160/66 H Pulse Oximetry 99 Oxygen Delivery Oxygen Flow Rate 10/12/21 00:00 10/12/21 02:00 10/12/21 04:00 Temperature Pulse Rate 76 79 Respiratory Rate Blood Pressure Pulse Oximetry 99 Oxygen Delivery Room Air Oxygen Flow Rate 10/12/21 04:00 10/12/21 04:00 10/12/21 06:00 Temperature 36.3 C L Pulse Rate 88 83 Respiratory Rate 20 Blood Pressure 161/79 H Pulse Oximetry 98 99 Oxygen Delivery Room Air Oxygen Flow Rate 10/12/21 08:00 10/12/21 08:47 Temperature 36.4 C Pulse Rate 85 86 Respiratory Rate 20 Blood Pressure 157/89 H Pulse Oximetry 93 Oxygen Delivery Oxygen Flow Rate Intake/Output Intake/Output: Intake & Output 10/09/21 10/10/21 10/11/21 10/12/21 23:59 23:59 23:59 23:59 Intake Total 870 1164 300 Output Total 400 2507 4591 50
[2021-10-12] MEDS: INSULIN GLARGINE (*BKC) 100 UNITS/ML 10 UNITS SUB-Q (10:26)
[2021-10-12] MEDS: EPOETIN ALFA-EPBX 10,000 UNITS/ML VIAL 10000 UNITS IV PUSH (12:13)
--- NOTE | 2021-10-12 12:38 | PCOTNOTE ---
Attempted to see pt for Occupational therapy tx at 12:33, however, pt is currently out of room for dialysis. Will continue per poc duration/frequency tomorrow.
--- NOTE | 2021-10-12 12:51 | PCPTNOTE ---
The patient treatment was not able to be completed on 10/12/21 due to gone for dialysis. Will plan to continue treatment per plan of care.
--- NOTE | 2021-10-12 14:24 | PM.IMPN ---
Progress Note: A&P Assessment and Plan (1) Acute kidney failure: Qualifiers: Acute renal failure type: unspecified Qualified Code(s): N17.9 - Acute kidney failure, unspecified Code(s): N17.9 - Acute kidney failure, unspecified Status: Acute Assessment and Plan: likely to be pre renal azotemia due to unrelenting in diarrhea however patient with multiple factors that might be contributing to renal failure as well fluid resuscitation renal ultrasound in a.m. Jackson catheter daily intake and output nephrology consult (2) COVID-19: Code(s): U07.1 - COVID-19 Status: Acute Assessment and Plan: patient tested positive for COVID received systemic steroids in emergency room continue to monitor supportive care (3) COPD exacerbation: Code(s): J44.1 - Chronic obstructive pulmonary disease with (acute) exacerbation Status: Acute Assessment and Plan: breathing treatments q.4 hours continue oxygen supplementation continue to monitor supportive care (4) Ooodk-bf-zviiedp kidney injury: Qualifiers: Acute renal failure type: unspecified Chronic kidney disease stage: stage 3 (moderate) Chronic kidney disease stage 3 subtype: stage 3b (GFR 30-44) Qualified Code(s): N17.9 - Acute kidney failure, unspecified; N18.32 - Chronic kidney disease, stage 3b Code(s): N17.9 - Acute kidney failure, unspecified; N18.9 - Chronic kidney disease, unspecified Status: Acute Assessment and Plan: worsening renal function likely component of prerenal azotemia (5) GERD (gastroesophageal reflux disease): Code(s): K21.9 - Gastro-esophageal reflux disease without esophagitis Status: Acute Assessment and Plan: PPI as needed (6) Acute hypoxemic respiratory failure: Code(s): J96.01 - Acute respiratory failure with hypoxia Status: Acute Assessment and Plan: continue BiPAP as needed (7) Type 2 diabetes mellitus with hyperglycemia, without long-term current use of insulin: Code(s): E11.65 - Type 2 diabetes mellitus with hyperglycemia Status: Acute Assessment and Plan: holding Januvia, Holding pioglitazone, holding ezetimibe Accu-Cheks AC and HS carb consistent diet (8) C. difficile diarrhea: Code(s): A04.72 - Enterocolitis due to Clostridium difficile, not specified as recurrent Status: Acute Assessment and Plan: patient in isolation started on vancomycin p.o. Additional Plan 10/12/2021 interval history: 81-year-old male with acute respiratory failure secondary to congestive heart failure, COVID-19 and general anesthesia, COVID-19 patient treated with dexamethasone he is not a candidate for remdesivir due to chronic kidney disease patient also suspect to have pneumonia being treated with azithromycin and ceftriaxone, blood cultures no growth so far, patient was extubated on 10/11 and transferred out of ICU, patient also found to have c diff being treated with oral vancomycin, today patient is somnolent unable to provide any review of symptom, will CPM and monitor. Subjective Date/time seen: 10/12/21 14:24 10/12/2021 interval history: 81-year-old male with acute respiratory failure secondary to congestive heart failure, COVID-19 and general anesthesia, COVID-19 patient treated with dexamethasone he is not a candidate for remdesivir due to chronic kidney disease patient also suspect to have pneumonia being treated with azithromycin and ceftriaxone, blood cultures no growth so far, patient was extubated on 10/11 and transferred out of ICU, patient also found to have c diff being treated with oral vancomycin, today patient is somnolent unable to provide any review of symptom, will CPM and monitor. Review of Systems Review of Systems: ROS unobtainable: Yes unobtainable due to medical condition Exam Narrative: Patient is comfortable, NAD HEENT: eyes are clear
--- NOTE | 2021-10-12 15:04 | PC.NURSE ---
Patient returned to room after dialysis. 2 L removed, patient tolerated well. Pt alert to person/year/president. No complaints of chest pain/sob at this time.
[2021-10-12 15:42] LABS: Glucose Point of Care 170 mg/dl (65-105)
[2021-10-12] MEDS: ASPIRIN 325 MG TABLET FEED TUBE (16:27)
[2021-10-12 20:08] LABS: Glucose Point of Care 369 mg/dl (65-105)
[2021-10-12] MEDS: ROSUVASTATIN 10 MG TABLET 20 MG PO (21:30)
[2021-10-12] MEDS: INSULIN ASPART (*BKC) 100 UNITS/ML 6 UNITS SUB-Q (21:30)
[2021-10-12 23:57] LABS: Glucose Point of Care 230 mg/dl (65-105)
[2021-10-13] VITALS (15 sets, daily range): BP systolic 109–158; BP diastolic 62–118; PULSE 66–87; RESP 14–26; TEMP 35.6–36.5; O2SAT 90–99
[2021-10-13] MEDS: VANCOMYCIN ORAL 125 MG/2.5 ML SYRUP PO ×5 (00:30→23:43)
[2021-10-13 05:16] LABS: Hematocrit 28.4 % (42.0-52.0); Mean Corpuscular HGB Conc 31.7 g/dl (32-36); Mean Corpuscular Hemoglobin 29.3 pg (26-34); Mean Corpuscular Volume 92.5 fl (80-100); Mean Platelet Volume 11.8 fl (7.4-10.4); Platelet Count Result 82 k/mm3 (150-375); Red Blood Count 3.07 M/mm3 (4.6-6.20); Red Cell Distribution Width 16.8 % (11.5-14.5); White Blood Count 16.1 K/mm3 (4.5-10.0)
[2021-10-13 05:22] LABS: Albumin Level 2.5 g/dL (3.5-5.1); Anion Gap 1 mmol/L (8-16); Blood Urea Nitrogen 37 mg/dL (9-20); Calcium 7.8 mg/dL (8.4-10.2); Carbon Dioxide 33 mmol/L (22-30); Chloride 100 mmol/L (98-107); Estimated CRCL calculation 15 ml/min; Estimated Glomerular Filt Rate 15; Glucose 170 mg/dL (65-110); Phosphorus 2.1 mg/dL (2.5-4.5); Potassium 3.7 mmol/L (3.4-5.0); Sodium 134 mmol/L (137-145)
[2021-10-13] MEDS: FLUTICASONE/UMECLIDIN/VILANTER 100-62.5-25 MCG ELLIPTA 1 PUFF INHALATION (07:57)
[2021-10-13 08:48] LABS: Glucose Point of Care 154 mg/dl (65-105)
[2021-10-13] MEDS: DONEPEZIL HCL 10 MG TABLET PO (09:56)
[2021-10-13] MEDS: POTASSIUM CHLORIDE 20 MEQ TABLET.ER 40 MEQ PO (09:56)
[2021-10-13] MEDS: FERROUS SULFATE 324 MG TABLET PO (09:56)
[2021-10-13] MEDS: CALCIUM ACETATE 667 MG TABLET PO ×3 (09:56→17:39)
[2021-10-13] MEDS: ASPIRIN 325 MG TABLET FEED TUBE (09:57)
[2021-10-13] MEDS: PANTOPRAZOLE SODIUM IV 40 MG VIAL IV PUSH ×2 (09:57→20:46)
[2021-10-13] MEDS: INSULIN GLARGINE (*BKC) 100 UNITS/ML 10 UNITS SUB-Q (09:58)
--- NOTE | 2021-10-13 10:58 | PM.PNNEP ---
Progress Note: A&P Additional Plan 1.Miky has chronic kidney disease. His creatinine seems to run between 2 and 2.5. He has had episodes where his creatinine was high in the past and improved back to its baseline. Renal ultrasound is unremarkable. Urinalysis showed blood, protein, bilirubin, and white cells. He does have diabetes and hypertension as well as coronary disease so probably diabetes, hypertension, and vascular disease are affecting his kidneys. 2. The patient has acute kidney injury on top of chronic. Urine culture shows polymicrobial growth. Blood cultures no growth to date Urine electrolytes were pre renal. Urine protein is very high. Improves. ALTAF is pending. Complements are slightly off with a C3 of 83. We can repeat this. Sed rate also high. These abnormalities might be due to infection. chest x-ray Shows bibasilar infiltrates. No pulmonary edema. Most likely ATN from C diff and COVID. Dehydration was probably playing a role early on but possibly not at this point. The patient has developed some swelling. Remove fluid as tolerated. 3. His potassium Is okay. 4. The patient has hyponatremia. This is chronic with a baseline sodium level in the mid 130s. His numbers are stable. 5. The patient has anemia. Will keep an eye on this. He is on Epogen. 6. The patient has coronary disease. No chest pain lately. 7. The patient has dementia. Subjective Date/time seen: 10/13/21 10:58 Interval history: the patient is off the ventilator and out of the ICU. He is eating breakfast pretty well today. No shortness of breath Exam Narrative: WDWN in NAD with a coarse cough as usual skin no rash or subQ nodules head ncat lungs Coarse bilaterally cor reg no rub or gallop abd BS+ nontender and soft ext 1+ edema and no cyanosis FMS still in. Objective Data Vital Signs Vital Signs: Vital Signs - 24 hr 10/12/21 11:25 10/12/21 11:40 10/12/21 11:55 Temperature 36.2 C L Pulse Rate 91 92 82 Respiratory Rate 22 H Blood Pressure 178/96 H 146/81 H 155/72 H Pulse Oximetry 95 Oxygen Delivery Oxygen Flow Rate 10/12/21 11:15 10/12/21 12:00 10/12/21 12:20 Temperature Pulse Rate 89 Respiratory Rate Blood Pressure 166/90 H 165/94 H Pulse Oximetry Oxygen Delivery Oxygen Flow Rate 2 10/12/21 12:40 10/12/21 13:00 10/12/21 13:20 Temperature Pulse Rate 92 93 93 Respiratory Rate Blood Pressure 159/88 H 153/94 H 147/80 H Pulse Oximetry Oxygen Delivery Oxygen Flow Rate 10/12/21 13:40 10/12/21 14:00 10/12/21 12:00 Temperature Pulse Rate 92 91 88 Respiratory Rate Blood Pressure 141/85 H 144/77 H Pulse Oximetry Oxygen Delivery Oxygen Flow Rate 10/12/21 14:20 10/12/21 14:39 10/12/21 14:00 Temperature 36.3 C L Pulse Rate 92 88 86 Respiratory Rate 22 H Blood Pressure 128/81 158/72 H Pulse Oximetry Oxygen Delivery Oxygen Flow Rate 10/12/21 15:42 10/12/21 16:00 10/12/21 16:00 Temperature 36.6 C Pulse Rate 101 H 81 91 Respiratory Rate 20 24 H Blood Pressure 146/77 H Pulse Oximetry 98 98 Oxygen Delivery Nasal Cannula Oxygen Flow Rate 2 10/12/21 16:00 10/12/21 18:00 10/12/21 20:00 Temperature 36.4 C 36.5 C Pulse Rate 93 88 87 Respiratory Rate 18 20 Blood Pressure 109/75 Pulse Oximetry 99 99 Oxygen Delivery Oxygen Flow Rate 10/12/21 20:00 10/12/21 20:00 10/12/21 22:00 Temperature Pulse Rate 92 87 Respiratory Rate Blood Pressure Pulse Oximetry 99 Oxygen Delivery Nasal Cannula Oxygen Flow Rate 2 10/13/21 00:00 10/13/21 00:00 10/13/21 00:00 Temperature 36.4 C Pulse Rate 84 82 Respiratory Rate 20 Blood Pressure 109/62 Pulse Oximetry 97 97 Oxygen Delivery Nasal Cannula Oxygen Flow Rate 2 10/13/21 02:00 10/13/21 02:55 10/13/21 04:00 Temperature Pulse Rate 76 72 75 Respiratory Rate 18 Blood P
--- NOTE | 2021-10-13 12:18 | PM.IMPN ---
Progress Note: A&P Assessment and Plan (1) Acute kidney failure: Qualifiers: Acute renal failure type: unspecified Qualified Code(s): N17.9 - Acute kidney failure, unspecified Code(s): N17.9 - Acute kidney failure, unspecified Status: Acute Assessment and Plan: likely to be pre renal azotemia due to unrelenting in diarrhea however patient with multiple factors that might be contributing to renal failure as well fluid resuscitation renal ultrasound in a.m. Jackson catheter daily intake and output nephrology consult (2) COVID-19: Code(s): U07.1 - COVID-19 Status: Acute Assessment and Plan: patient tested positive for COVID received systemic steroids in emergency room continue to monitor supportive care (3) COPD exacerbation: Code(s): J44.1 - Chronic obstructive pulmonary disease with (acute) exacerbation Status: Acute Assessment and Plan: breathing treatments q.4 hours continue oxygen supplementation continue to monitor supportive care (4) Npqfb-yi-kdwgsot kidney injury: Qualifiers: Acute renal failure type: unspecified Chronic kidney disease stage: stage 3 (moderate) Chronic kidney disease stage 3 subtype: stage 3b (GFR 30-44) Qualified Code(s): N17.9 - Acute kidney failure, unspecified; N18.32 - Chronic kidney disease, stage 3b Code(s): N17.9 - Acute kidney failure, unspecified; N18.9 - Chronic kidney disease, unspecified Status: Acute Assessment and Plan: worsening renal function likely component of prerenal azotemia (5) GERD (gastroesophageal reflux disease): Code(s): K21.9 - Gastro-esophageal reflux disease without esophagitis Status: Acute Assessment and Plan: PPI as needed (6) Acute hypoxemic respiratory failure: Code(s): J96.01 - Acute respiratory failure with hypoxia Status: Acute Assessment and Plan: continue BiPAP as needed (7) Type 2 diabetes mellitus with hyperglycemia, without long-term current use of insulin: Code(s): E11.65 - Type 2 diabetes mellitus with hyperglycemia Status: Acute Assessment and Plan: holding Januvia, Holding pioglitazone, holding ezetimibe Accu-Cheks AC and HS carb consistent diet (8) C. difficile diarrhea: Code(s): A04.72 - Enterocolitis due to Clostridium difficile, not specified as recurrent Status: Acute Assessment and Plan: patient in isolation started on vancomycin p.o. Additional Plan 10/12/2021 interval history: 81-year-old male with acute respiratory failure secondary to congestive heart failure, COVID-19 and general anesthesia, COVID-19 patient treated with dexamethasone he is not a candidate for remdesivir due to chronic kidney disease patient also suspect to have pneumonia being treated with azithromycin and ceftriaxone, blood cultures no growth so far, patient was extubated on 10/11 and transferred out of ICU, patient also found to have c diff being treated with oral vancomycin, today patient is somnolent unable to provide any review of symptom, will CPM and monitor. 10/13/2021 interval history: 81-year-old male with acute respiratory failure secondary to congestive heart failure, COVID-19 and general anesthesia, COVID-19 patient treated with dexamethasone 08/13. he is not a candidate for remdesivir due to chronic kidney disease patient also suspect to have pneumonia being treated with azithromycin and ceftriaxone, patient chest x-ray today does not show much improvement, blood cultures no growth so far, patient was extubated on 10/11 and transferred out of ICU, patient also found to have c diff being treated with oral vancomycin, today patient is more awake just ate his breakfast, states feeling little better today not a short of breath, will CPM and monitor. x-ray done today concerning for injury to right shoulder will do right shoulder x-ray to further evaluate and rec
[2021-10-13 12:31] LABS: Glucose Point of Care 276 mg/dl (65-105)
[2021-10-13] MEDS: INSULIN ASPART (*BKC) 100 UNITS/ML SUB-Q ×2 (12:37→17:39)
[2021-10-13 16:38] LABS: Glucose Point of Care 366 mg/dl (65-105)
[2021-10-13 20:16] LABS: Glucose Point of Care 332 mg/dl (65-105)
[2021-10-13] MEDS: ROSUVASTATIN 10 MG TABLET 20 MG PO (20:46)
[2021-10-13] MEDS: INSULIN ASPART (*BKC) 100 UNITS/ML 6 UNITS SUB-Q (21:15)
[2021-10-14] VITALS (30 sets, daily range): BP systolic 115–156; BP diastolic 52–78; PULSE 62–89; RESP 16–26; TEMP 36.1–37; O2SAT 90–96
[2021-10-14 00:09] LABS: Glucose Point of Care 224 mg/dl (65-105)
[2021-10-14] MEDS: VANCOMYCIN ORAL 125 MG/2.5 ML SYRUP PO ×4 (05:43→23:27)
[2021-10-14 08:35] LABS: Glucose Point of Care 181 mg/dl (65-105)
[2021-10-14] MEDS: POTASSIUM CHLORIDE 20 MEQ TABLET.ER 40 MEQ PO (10:02)
[2021-10-14] MEDS: ASPIRIN 325 MG TABLET FEED TUBE (10:02)
[2021-10-14] MEDS: FERROUS SULFATE 324 MG TABLET PO (10:03)
[2021-10-14] MEDS: DONEPEZIL HCL 10 MG TABLET PO (10:03)
[2021-10-14] MEDS: PANTOPRAZOLE SODIUM IV 40 MG VIAL IV PUSH ×2 (10:03→20:58)
[2021-10-14] MEDS: CALCIUM ACETATE 667 MG TABLET PO ×3 (10:03→18:56)
[2021-10-14 10:06] LABS: Basophils Percent Auto 0.1 % (0.2-1.2); Eosinophils Absolute Auto 0.1 K/mm3 (0-0.3); Eosinophils Percent Auto 0.4 % (0-4.4); Hematocrit 25.1 % (42.0-52.0); Hemoglobin 8.3 g/dL (14.0-18.0); Immature Granulocyte Absolute 0.61 K/mm3 (0.00-0.031); Immature Granulocyte Percent A 3.9 % (0-0.5); Immature Platelet Fraction Pct 8.1 % (0.9-11.2); Lymphocytes Absolute Auto 0.81 K/mm3 (0.9-3.2); Lymphocytes Percent Auto 5.2 % (18.3-44.2); Mean Corpuscular HGB Conc 33.1 g/dl (32-36); Mean Corpuscular Hemoglobin 30.1 pg (26-34); Mean Corpuscular Volume 90.9 fl (80-100); Mean Platelet Volume 11.2 fl (7.4-10.4); Monocytes Absolute Auto 0.7 K/mm3 (0.1-0.6); Monocytes Percent Auto 4.2 % (2.6-8.5); Neutrophils Absolute Auto 13.4 K/mm3 (1.3-6.7); Neutrophils Percent Auto 86.2 % (45.5-73.1); Nucleated Red Blood Cells Perc 0.3 % (0.0-0.2); Platelet Count Result 84 k/mm3 (150-375); Red Blood Count 2.76 M/mm3 (4.6-6.20); Red Cell Distribution Width 16.5 % (11.5-14.5); White Blood Count 15.6 K/mm3 (4.5-10.0)
[2021-10-14] MEDS: INSULIN GLARGINE (*BKC) 100 UNITS/ML 10 UNITS SUB-Q (10:06)
[2021-10-14 10:23] LABS: Alanine Aminotransferase 11 U/L (6-50); Albumin Level 2.2 g/dL (3.5-5.1); Alkaline Phosphatase 64 U/L (38-126); Anion Gap 5 mmol/L (8-16); Aspartate Amino Transferase 26 U/L (17-59); Bilirubin,Total 0.4 mg/dL (0.2-1.3); Blood Urea Nitrogen 45 mg/dL (9-20); Calcium 7.8 mg/dL (8.4-10.2); Carbon Dioxide 29 mmol/L (22-30); Chloride 95 mmol/L (98-107); Estimated CRCL calculation 12 ml/min; Estimated Glomerular Filt Rate 12; Glucose 189 mg/dL (65-110); Magnesium 1.9 mg/dL (1.6-2.3); Phosphorus 1.4 mg/dL (2.5-4.5); Potassium 3.1 mmol/L (3.4-5.0); Sodium 129 mmol/L (137-145)
[2021-10-14 10:27] LABS: Platelet Estimate Decreased (Adequate)
[2021-10-14 10:28] LABS: Anisocytosis 1+ (NORMAL); Complement C3 56 mg/dL (88-165); Hypochromasia 2+ (NORMAL); Poikilocytosis 1+ (NORMAL)
[2021-10-14 10:34] LABS: Erythrocyte Sedimentation Rate 49 mm/hr (0-20)
[2021-10-14 11:54] LABS: Glucose Point of Care 212 mg/dl (65-105)
--- NOTE | 2021-10-14 12:12 | P.CDI_ITS ---
CDI Query Clarification Request ?10/12 Traveling Auditor docuemnted: Congestive heart failure: ?Code(s): I50.9 - Heart failure, unspecified ?Status:?Acute ?Assessment and Plan: Elevated BNP of 22,000 on presentation Echo Summary ? 1. Complete two-dimensional, color flow and Doppler transthoracic echocardiogram is performed. ? 2. Left ventricular chamber dimension is normal. ? 3. Left ventricular systolic function is normal, estimated at 55-60%. ? 4. There is no increased left ventricular wall thickness. ? 5. Left ventricular septal wall motion is normal. ? 6. Right ventricular chamber dimension is normal. ? 7. Right ventricular systolic function is normal. ? 8. There is mild mitral valve regurgitation. ? 9. No pulmonary hypertension, estimated pulmonary arterial systolic pressure is 34 mmHg. Patient was given IV fluids for his renal failure but now may be developing pulmonary edema Patient now on hemodialysis 10/12 Hospitalist documented: Date/time seen: 10/12/21? 14:24 ?10/12/2021 interval history:?81-year-old male with acute respiratory failure secondary to congestive heart failure, COVID-19 and general anesthesia, COVID-19 patient treated with dexamethasone he is not a candidate for remdesivir due to chronic kidney disease patient also suspect to have pneumonia being treated with azithromycin? and ceftriaxone,? blood cultures no growth so far, patient was extubated on 10/11 and transferred out of ICU,? patient also found to have c diff being treated with oral vancomycin, today patient is somnolent unable to provide any review of symptom, will CPM and monitor. Please clarify if CHF, (Congestive Heart Failure is ruled in or ruled out, if CHF, (Congestive Heart Failure) is ruled in, please clarify if, Systolic, Diastolic, combined, or unable to determine. For coding purposes, procedure results, labs may not be used as a diagnosis. If diagnosis, CHF, (Congestive Heart Failure) ruled in, please add to problem list. <Shoshana Dong - Last Filed: 10/14/21 12:20> Clarified Diagnosis (1) Congestive heart failure: Code(s): I50.9 - Heart failure, unspecified <Shoshana Dong - Last Filed: 10/14/21 12:20> Status: Acute <Shoshana Dong - Last Filed: 10/14/21 12:20> Assessment and Plan: [place] [address] suggest the patient has a systolic dysfunction however cardiac echo shows normal ejection fraction without any left ventricle dysfunction similarly diastolic function is normal, I am unable to do due to my etiology of congestive heart failure, elevated BNP may be related to COVID-19 <Leticia Dawson MD - Last Filed: 10/27/21 16:50>
[2021-10-14 13:28] LABS: Albumin Level 2.3 g/dL (3.5-5.1); Anion Gap 4 mmol/L (8-16); Blood Urea Nitrogen 47 mg/dL (9-20); Calcium 7.7 mg/dL (8.4-10.2); Carbon Dioxide 28 mmol/L (22-30); Chloride 95 mmol/L (98-107); Estimated CRCL calculation 12 ml/min; Estimated Glomerular Filt Rate 11; Glucose 199 mg/dL (65-110); Phosphorus 1.4 mg/dL (2.5-4.5); Potassium 3.4 mmol/L (3.4-5.0); Sodium 127 mmol/L (137-145)
--- NOTE | 2021-10-14 13:39 | PCDIET ---
Called Dr. Gregg to notify him of patient phosporus level of 1.4. left message with office.
--- NOTE | 2021-10-14 14:04 | PC.NURSE ---
Dr. Gregg ordered 500 mg K-Phos for a phos of 1.4
[2021-10-14] MEDS: POTASSIUM PHOS/SODIUM PHOS 250 MG TABLET 500 MG PO (14:38)
[2021-10-14] MEDS: HEPARIN SODIUM 1,000 UNITS/ML VIAL 1000 UNITS IV PUSH (15:03)
[2021-10-14] MEDS: HEPARIN SODIUM 1,000 UNITS/ML VIAL 500 UNITS IV PUSH ×2 (15:03→18:29)
[2021-10-14] MEDS: EPOETIN ALFA-EPBX 10,000 UNITS/ML VIAL 10000 UNITS IV PUSH (15:05)
[2021-10-14] MEDS: SODIUM CHLORIDE 0.9% IV 1,000 ML 999 ML IV CONT (15:05)
--- NOTE | 2021-10-14 15:09 | P.PNNP_ITS ---
Progress Note: A&P Assessment and Plan (1) ROEL (acute kidney injury): Code(s): N17.9 - Acute kidney failure, unspecified Status: Resolved Assessment and Plan: * suspect due to ATN from infection (COVD and c. 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 * HD today * follow electrolytes, volume status, clearance (2) Stage 3b chronic kidney disease: Code(s): N18.32 - Chronic kidney disease, stage 3b Status: Chronic Assessment and Plan: * baseline creatinine runs ~ 1.9 - 2.5mg/dl * felt to be secondary to diabetes, hypertension, vascular disease, and age based on outpatient evaluation (3) COVID-19: Code(s): U07.1 - COVID-19 Status: Acute Assessment and Plan: * tested positive on admission * s/p steroids * supportive care (4) COPD exacerbation: Code(s): J44.1 - Chronic obstructive pulmonary disease with (acute) exacerbation Status: Acute Assessment and Plan: * respiratory status better * continue breathing treatments * supplemental oxygen (5) C. difficile diarrhea: Code(s): A04.72 - Enterocolitis due to Clostridium difficile, not specified as recurrent Status: Acute Assessment and Plan: * on oral vancomycin * patient in isolation (6) Anemia: Code(s): D64.9 - Anemia, unspecified Status: Chronic Assessment and Plan: * related to ROEL, CKD, and acute illness * Epogen with HD * follow H/H (7) Type 2 diabetes mellitus with hyperglycemia, without long-term current use of insulin: Code(s): E11.65 - Type 2 diabetes mellitus with hyperglycemia Status: Acute Assessment and Plan: * follow accuchecks * on SSI and Lantus Will continue to follow. Subjective Date/time seen: 10/14/21 15:09 Chart reviewed - assuming care from Dr. Mitchell; tolerating hemodialysis treatment at the time of my visit (seen on HD at ~ 3:00pm); no apparent distress voiced currently; breathing appears better if not continues to improve; no other acute complaints voiced. Exam Narrative: General: WD/WN male in NAD Heart: normal S1 and S2; no rub Lungs: coarse breath sounds Abdomen: soft, nontender, nondistended, positive bowel sounds Extremities: no cyanosis or clubbing; 1+ edema Skin: warm and dry Objective Data Vital Signs Vital Signs: Vital Signs Temp Pulse Resp BP Pulse Ox O2 Del Method 10/14/21 15:00 65 153/71 H 10/14/21 14:50 36.6 C 69 16 155/75 H 10/14/21 15:00 67 154/74 H 10/14/21 11:50 36.3 C L 72 24 H 149/57 H 94 10/14/21 11:46 36.3 C L 72 24 H 149/57 H 94 10/14/21 08:00 36.5 C 78 26 H 156/66 H 96 10/14/21 08:09 96 Room Air 10/14/21 06:00 74 10/14/21 04:00 66 10/14/21 04:00 96 Room Air 10/14/21 04:00 36.1 C L 67 18 127/78 90 10/14/21 02:00 67 10/14/21 00:00 66 10/14/21 00:00 96 Room Air 10/13/21 23:17 36.4 C 66 20 142/75 H 96 10/13/21 22:00 7
--- NOTE | 2021-10-14 15:09 | PM.PNNEP ---
Progress Note: A&P Assessment and Plan (1) ROEL (acute kidney injury): Code(s): N17.9 - Acute kidney failure, unspecified Status: Resolved Assessment and Plan: suspect due to ATN from infection (COVD and c. diff colitis) evaluation to date: urine culture with polymicrobial growth blood cultures negative urine electrolytes were prerenal due worsening renal dysfunction and worsening fluid status, initiated on TIE IN HAND/dialysis HD today follow electrolytes, volume status, clearance (2) Stage 3b chronic kidney disease: Code(s): N18.32 - Chronic kidney disease, stage 3b Status: Chronic Assessment and Plan: baseline creatinine runs ~ 1.9 - 2.5mg/dl felt to be secondary to diabetes, hypertension, vascular disease, and age based on outpatient evaluation (3) COVID-19: Code(s): U07.1 - COVID-19 Status: Acute Assessment and Plan: tested positive on admission s/p steroids supportive care (4) COPD exacerbation: Code(s): J44.1 - Chronic obstructive pulmonary disease with (acute) exacerbation Status: Acute Assessment and Plan: respiratory status better continue breathing treatments supplemental oxygen (5) C. difficile diarrhea: Code(s): A04.72 - Enterocolitis due to Clostridium difficile, not specified as recurrent Status: Acute Assessment and Plan: on oral vancomycin patient in isolation (6) Anemia: Code(s): D64.9 - Anemia, unspecified Status: Chronic Assessment and Plan: related to ROEL, CKD, and acute illness Epogen with HD follow H/H (7) Type 2 diabetes mellitus with hyperglycemia, without long-term current use of insulin: Code(s): E11.65 - Type 2 diabetes mellitus with hyperglycemia Status: Acute Assessment and Plan: follow accuchecks on SSI and Lantus Will continue to follow. Subjective Date/time seen: 10/14/21 15:09 Chart reviewed - assuming care from Dr. Mitchell; tolerating hemodialysis treatment at the time of my visit (seen on HD at ~ 3:00pm); no apparent distress voiced currently; breathing appears better if not continues to improve; no other acute complaints voiced. Exam Narrative: General: WD/WN male in NAD Heart: normal S1 and S2; no rub Lungs: coarse breath sounds Abdomen: soft, nontender, nondistended, positive bowel sounds Extremities: no cyanosis or clubbing; 1+ edema Skin: warm and dry Objective Data Vital Signs Vital Signs: Vital Signs Temp Pulse Resp BP Pulse Ox O2 Del Method 10/14/21 15:00 65 153/71 H 10/14/21 14:50 36.6 C 69 16 155/75 H 10/14/21 15:00 67 154/74 H 10/14/21 11:50 36.3 C L 72 24 H 149/57 H 94 10/14/21 11:46 36.3 C L 72 24 H 149/57 H 94 10/14/21 08:00 36.5 C 78 26 H 156/66 H 96 10/14/21 08:09 96 Room Air 10/14/21 06:00 74 10/14/21 04:00 66 10/14/21 04:00 96 Room Air 10/14/21 04:00 36.1 C L 67 18 127/78 90 10/14/21 02:00 67 10/14/21 00:00 66 10/14/21 00:00 96 Room Air 10/13/21 23:17 36.4 C 66 20 142/75 H 96 10/13/21 22:00 75 10/13/21 20:00 68 10/13/21 20:00 97 Room Air 10/13/21 20:00 36.5 C 70 22 H 131/81 90 10/13/21 18:00 81 10/13/21 16:00 74 10/13/21 16:00 35.9 C L 73 26 H 137/62 97 10/13/21 16:00 97 Room Air Intake/Output Intake/Output: Intake & Output 10/11/21 10/12/21 10/13/21 10/14/21 23:59 23:59 23:59 23:59 Intake Total 300 960 400 400 Output Total 2350 4300 100 95 Balance -2049 -3339 300 305 Meds/Results Medications: Active Medications Generic Name Dose Route Start Last Admin Trade Name Freq PRN Reason Stop Dose Admin Acetaminophen 500 mg 10/09/21 15:21 Acetaminophen 500 Mg Tablet PO Q6H PRN Mild Pain (1-3) or Fever Hydrocodone Bitart/Acetaminophen 1 tab 10/09/21 15:21 Hydroc
--- NOTE | 2021-10-14 18:11 | P.PNIM_ITS ---
Progress Note: A&P Assessment and Plan (1) Acute kidney failure: Qualifiers: Acute renal failure type: unspecified Qualified Code(s): N17.9 - Acute kidney failure, unspecified Code(s): N17.9 - Acute kidney failure, unspecified Status: Acute Assessment and Plan: likely to be pre renal azotemia due to unrelenting in diarrhea however patient with multiple factors that might be contributing to renal failure as well fluid resuscitation renal ultrasound in a.m. Jackson catheter daily intake and output nephrology consult (2) COVID-19: Code(s): U07.1 - COVID-19 Status: Acute Assessment and Plan: patient tested positive for COVID received systemic steroids in emergency room continue to monitor supportive care (3) COPD exacerbation: Code(s): J44.1 - Chronic obstructive pulmonary disease with (acute) exacerbation Status: Acute Assessment and Plan: breathing treatments q.4 hours continue oxygen supplementation continue to monitor supportive care (4) Cdabl-os-slymcxv kidney injury: Qualifiers: Acute renal failure type: unspecified Chronic kidney disease stage: stage 3 (moderate) Chronic kidney disease stage 3 subtype: stage 3b (GFR 30-44) Qualified Code(s): N17.9 - Acute kidney failure, unspecified; N18.32 - Chronic kidney disease, stage 3b Code(s): N17.9 - Acute kidney failure, unspecified; N18.9 - Chronic kidney disease, unspecified Status: Acute Assessment and Plan: worsening renal function likely component of prerenal azotemia (5) GERD (gastroesophageal reflux disease): Code(s): K21.9 - Gastro-esophageal reflux disease without esophagitis Status: Acute Assessment and Plan: PPI as needed (6) Acute hypoxemic respiratory failure: Code(s): J96.01 - Acute respiratory failure with hypoxia Status: Acute Assessment and Plan: continue BiPAP as needed (7) Type 2 diabetes mellitus with hyperglycemia, without long-term current use of insulin: Code(s): E11.65 - Type 2 diabetes mellitus with hyperglycemia Status: Acute Assessment and Plan: holding Januvia, Holding pioglitazone, holding ezetimibe Accu-Cheks AC and HS carb consistent diet (8) C. difficile diarrhea: Code(s): A04.72 - Enterocolitis due to Clostridium difficile, not specified as recurrent Status: Acute Assessment and Plan: patient in isolation started on vancomycin p.o. Additional Plan 10/12/2021 interval history: 81-year-old male with acute respiratory failure secondary to congestive heart failure, COVID-19 and general anesthesia, COVID-19 patient treated with dexamethasone he is not a candidate for remdesivir due to chronic kidney disease patient also suspect to have pneumonia being treated with azithromycin and ceftriaxone, blood cultures no growth so far, patient was extubated on 10/11 and transferred out of ICU, patient also found to have c diff being treated with oral vancomycin, today patient is somnolent unable to provide any review of symptom, will CPM and monitor. 10/13/2021 interval history: 81-year-old male with acute respiratory failure secondary to congestive heart failure, COVID-19 and general anesthesia, COVID-19 patient treated with dexamethasone 08/13. he is not a candidate for remdesivir due to chronic kidney disease patient also suspect to have pneumonia being treated with azithromycin and ceftriaxone, patient chest x-ray today does not show much improvement, blood cultures no growth so far, patient was extubated
[2021-10-14 18:57] LABS: Glucose Point of Care 164 mg/dl (65-105)
[2021-10-14 20:03] LABS: Glucose Point of Care 195 mg/dl (65-105)
[2021-10-14 20:16] LABS: Hepatitis B Core Ab Total Nonreactive (Nonreactive)
[2021-10-14] MEDS: ROSUVASTATIN 10 MG TABLET 20 MG PO (20:58)
[2021-10-15] VITALS (14 sets, daily range): BP systolic 149–162; BP diastolic 58–84; PULSE 66–84; RESP 16–24; TEMP 35.9–36.5; O2SAT 90–100; BMI 10.0
[2021-10-15] MEDS: VANCOMYCIN ORAL 125 MG/2.5 ML SYRUP PO ×4 (05:10→22:02)
[2021-10-15 05:25] LABS: Hematocrit 24.8 % (42.0-52.0); Hemoglobin 7.8 g/dL (14.0-18.0); Immature Platelet Fraction Pct 8.4 % (0.9-11.2); Mean Corpuscular HGB Conc 31.5 g/dl (32-36); Mean Corpuscular Hemoglobin 29.8 pg (26-34); Mean Corpuscular Volume 94.7 fl (80-100); Mean Platelet Volume 11.6 fl (7.4-10.4); Platelet Count Result 90 k/mm3 (150-375); Red Blood Count 2.62 M/mm3 (4.6-6.20); Red Cell Distribution Width 16.4 % (11.5-14.5); White Blood Count 11.5 K/mm3 (4.5-10.0)
[2021-10-15 05:48] LABS: Albumin Level 2.2 g/dL (3.5-5.1); Anion Gap 3 mmol/L (8-16); Blood Urea Nitrogen 20 mg/dL (9-20); Calcium 7.3 mg/dL (8.4-10.2); Carbon Dioxide 32 mmol/L (22-30); Chloride 100 mmol/L (98-107); Estimated CRCL calculation 20 ml/min; Estimated Glomerular Filt Rate 21; Glucose 153 mg/dL (65-110); Phosphorus 1.4 mg/dL (2.5-4.5); Potassium 2.8 mmol/L (3.4-5.0); Sodium 135 mmol/L (137-145)
[2021-10-15] MEDS: POTASSIUM PHOS/SODIUM PHOS 250 MG TABLET 500 MG PO (06:43)
[2021-10-15 07:26] LABS: Glucose Point of Care 155 mg/dl (65-105)
[2021-10-15] MEDS: INSULIN GLARGINE (*BKC) 100 UNITS/ML 10 UNITS SUB-Q (09:16)
[2021-10-15] MEDS: PANTOPRAZOLE SODIUM IV 40 MG VIAL IV PUSH ×2 (09:17→22:02)
[2021-10-15] MEDS: DONEPEZIL HCL 10 MG TABLET PO (09:17)
[2021-10-15] MEDS: POTASSIUM CHLORIDE 20 MEQ TABLET.ER 40 MEQ PO (09:17)
[2021-10-15] MEDS: FERROUS SULFATE 324 MG TABLET PO (09:17)
[2021-10-15] MEDS: CALCIUM ACETATE 667 MG TABLET PO (09:17)
[2021-10-15] MEDS: ASPIRIN 325 MG TABLET FEED TUBE (09:17)
--- NOTE | 2021-10-15 10:21 | P.PNNP_ITS ---
Progress Note: A&P Assessment and Plan (1) ROEL (acute kidney injury): Code(s): N17.9 - Acute kidney failure, unspecified Status: Resolved Assessment and Plan: * suspect due to ATN from infection (COVD and C. 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 * HD tomorrow and continue M/W/F schedule for now * follow electrolytes, volume status, clearance (2) Stage 3b chronic kidney disease: Code(s): N18.32 - Chronic kidney disease, stage 3b Status: Chronic Assessment and Plan: * baseline creatinine runs ~ 1.9 - 2.5mg/dl * felt to be secondary to diabetes, hypertension, vascular disease, and age based on outpatient evaluation (3) COVID-19: Code(s): U07.1 - COVID-19 Status: Acute Assessment and Plan: * tested positive on admission * s/p steroids * supportive care (4) COPD exacerbation: Code(s): J44.1 - Chronic obstructive pulmonary disease with (acute) exacerbation Status: Acute Assessment and Plan: * respiratory status better * continue breathing treatments * supplemental oxygen (5) C. difficile diarrhea: Code(s): A04.72 - Enterocolitis due to Clostridium difficile, not specified as recurrent Status: Acute Assessment and Plan: * on oral vancomycin * patient in isolation (6) Anemia: Code(s): D64.9 - Anemia, unspecified Status: Chronic Assessment and Plan: * related to ROEL, CKD, and acute illness * Epogen with HD * follow H/H (7) Type 2 diabetes mellitus with hyperglycemia, without long-term current use of insulin: Code(s): E11.65 - Type 2 diabetes mellitus with hyperglycemia Status: Acute Assessment and Plan: * follow accuchecks * on SSI and Lantus Will continue to follow. Subjective Date/time seen: 10/15/21 10:21 Tolerated dialysis treatment yesterday afternoon without any issues or problems; continues to have issues with hypokalemia and hypophosphatemia as noted by AM labs requiring replacement; no other acute complaints voiced; no issues/events overnight. Exam Narrative: General: WD/WN male in NAD Heart: normal S1 and S2; no rub Lungs: coarse breath sounds Abdomen: soft, nontender, nondistended, positive bowel sounds Extremities: no cyanosis or clubbing; 1+ edema Skin: warm and intact Objective Data Vital Signs Vital Signs: Vital Signs Temp Pulse Resp BP Pulse Ox O2 Del Method O2 Flow Rate 10/15/21 07:47 36.5 C 70 24 H 162/70 H 98 10/15/21 06:00 84 10/15/21 04:00 36.4 C L 80 20 149/58 H 98 10/15/21 04:00 69 10/15/21 01:30 96 Nasal Cannula 2 10/15/21 03:42 70 20 90 Nasal Cannula 2 10/15/21 02:00 70 10/15/21 00:00 74 10/14/21 23:46 36.6 C 79 20 129/55 L 90 10/14/21 23:36 89 20 92 Room Air 10/14/21 22:00 89 10/14/21 20:00 72 20 92 Room Air 10/14/21 20:00 74 10/14/21 16:00 92 Room Air 10/14/21 12:00 92 Room Air
--- NOTE | 2021-10-15 10:21 | PM.PNNEP ---
Progress Note: A&P Assessment and Plan (1) ROEL (acute kidney injury): Code(s): N17.9 - Acute kidney failure, unspecified Status: Resolved Assessment and Plan: suspect due to ATN from infection (COVD and C. diff colitis) evaluation to date: urine culture with polymicrobial growth blood cultures negative urine electrolytes were prerenal due worsening renal dysfunction and worsening fluid status, initiated on DERMATOLOGIST/dialysis HD tomorrow and continue M/W/F schedule for now follow electrolytes, volume status, clearance (2) Stage 3b chronic kidney disease: Code(s): N18.32 - Chronic kidney disease, stage 3b Status: Chronic Assessment and Plan: baseline creatinine runs ~ 1.9 - 2.5mg/dl felt to be secondary to diabetes, hypertension, vascular disease, and age based on outpatient evaluation (3) COVID-19: Code(s): U07.1 - COVID-19 Status: Acute Assessment and Plan: tested positive on admission s/p steroids supportive care (4) COPD exacerbation: Code(s): J44.1 - Chronic obstructive pulmonary disease with (acute) exacerbation Status: Acute Assessment and Plan: respiratory status better continue breathing treatments supplemental oxygen (5) C. difficile diarrhea: Code(s): A04.72 - Enterocolitis due to Clostridium difficile, not specified as recurrent Status: Acute Assessment and Plan: on oral vancomycin patient in isolation (6) Anemia: Code(s): D64.9 - Anemia, unspecified Status: Chronic Assessment and Plan: related to ROEL, CKD, and acute illness Epogen with HD follow H/H (7) Type 2 diabetes mellitus with hyperglycemia, without long-term current use of insulin: Code(s): E11.65 - Type 2 diabetes mellitus with hyperglycemia Status: Acute Assessment and Plan: follow accuchecks on SSI and Lantus Will continue to follow. Subjective Date/time seen: 10/15/21 10:21 Tolerated dialysis treatment yesterday afternoon without any issues or problems; continues to have issues with hypokalemia and hypophosphatemia as noted by AM labs requiring replacement; no other acute complaints voiced; no issues/events overnight. Exam Narrative: General: WD/WN male in NAD Heart: normal S1 and S2; no rub Lungs: coarse breath sounds Abdomen: soft, nontender, nondistended, positive bowel sounds Extremities: no cyanosis or clubbing; 1+ edema Skin: warm and intact Objective Data Vital Signs Vital Signs: Vital Signs Temp Pulse Resp BP Pulse Ox O2 Del Method O2 Flow Rate 10/15/21 07:47 36.5 C 70 24 H 162/70 H 98 10/15/21 06:00 84 10/15/21 04:00 36.4 C L 80 20 149/58 H 98 10/15/21 04:00 69 10/15/21 01:30 96 Nasal Cannula 2 10/15/21 03:42 70 20 90 Nasal Cannula 2 10/15/21 02:00 70 10/15/21 00:00 74 10/14/21 23:46 36.6 C 79 20 129/55 L 90 10/14/21 23:36 89 20 92 Room Air 10/14/21 22:00 89 10/14/21 20:00 72 20 92 Room Air 10/14/21 20:00 74 10/14/21 16:00 92 Room Air 10/14/21 12:00 92 Room Air 10/14/21 19:58 36.3 C L 72 20 126/55 L 92 10/14/21 18:00 74 10/14/21 16:00 68 10/14/21 14:00 62 10/14/21 12:00 63 10/14/21 18:57 36.3 C L 74 20 144/52 H 95 10/14/21 18:25 36.3 C L 74 16 118/68 10/14/21 18:17 73 115/61 10/14/21 18:00 70 118/66 10/14/21 17:40 64 123/61 10/14/21 17:20 69 135/72 10/14/21 17:00 67 127/73 10/14/21 16:40 70 119/66 10/14/21 16:20 66 126/67 10/14/21 16:00 68 131/74 10/14/21 15:40 64 135/68 10/14/21 15:20 65 153/71 H 10/14/21 14:50 36.6 C 69 16 155/75 H 10/14/21 15:00 67 154/74 H 10/14/21 11:50 36.3 C L 72 24 H 149/57 H 94 10/14/21 11:46 36.3 C L 72 24 H 149/57 H 94
[2021-10-15 10:47] LABS: Alanine Aminotransferase 18 U/L (6-50); Albumin Level 2.1 g/dL (3.5-5.1); Alkaline Phosphatase 72 U/L (38-126); Aspartate Amino Transferase 37 U/L (17-59); Bilirubin,Total 0.4 mg/dL (0.2-1.3)
[2021-10-15 11:39] LABS: Alanine Aminotransferase 20 U/L (6-50); Albumin Level 2.3 g/dL (3.5-5.1); Alkaline Phosphatase 80 U/L (38-126); Anion Gap 2 mmol/L (8-16); Aspartate Amino Transferase 55 U/L (17-59); Bilirubin,Total 0.4 mg/dL (0.2-1.3); Blood Urea Nitrogen 21 mg/dL (9-20); Calcium 7.3 mg/dL (8.4-10.2); Carbon Dioxide 34 mmol/L (22-30); Chloride 98 mmol/L (98-107); Estimated CRCL calculation 19 ml/min; Estimated Glomerular Filt Rate 20; Glucose 189 mg/dL (65-110); Phosphorus 1.5 mg/dL (2.5-4.5); Sodium 134 mmol/L (137-145)
[2021-10-15] MEDS: FLUTICASONE/UMECLIDIN/VILANTER 100-62.5-25 MCG ELLIPTA 1 PUFF INHALATION (11:45)
[2021-10-15 11:47] LABS: Glucose Point of Care 218 mg/dl (65-105)
[2021-10-15] MEDS: POTASSIUM/PHOSPHORUS/SODIUM 1.5 GM PACKET 2 PACKET PO (12:32)
[2021-10-15] MEDS: INSULIN ASPART (*BKC) 100 UNITS/ML SUB-Q (12:32)
--- NOTE | 2021-10-15 13:55 | PCOTNOTE ---
Attempted to see patient this pm, however patient refused stating, I already did all that. You missed out. Speaking in regards to completing ADLs. Will continue plan of care tomorrow.
[2021-10-15 16:10] LABS: Glucose Point of Care 203 mg/dl (65-105)
--- NOTE | 2021-10-15 17:57 | PC.NURSE ---
This patient, Miky Fuentes, was transferred to [facility] on 10/15/21 at 1757. Personal belongings sent with patient. Report given to Vicky NUNEZ. Appropriate documentation sent with patient.
[2021-10-15 18:30] LABS: Glucose Point of Care 197 mg/dl (65-105)
--- NOTE | 2021-10-15 18:30 | PC.NURSE ---
This patient, Miky Fuentes, was received from [facility] on 10/15/21 at 1810. Patient/family oriented to unit policies and routines
[2021-10-15] MEDS: ROSUVASTATIN 10 MG TABLET 20 MG PO (22:01)
[2021-10-15 22:10] LABS: Glucose Point of Care 170 mg/dl (65-105)
[2021-10-16] VITALS (11 sets, daily range): BP systolic 147–171; BP diastolic 48–72; PULSE 67–85; RESP 18–24; TEMP 36.5–37.4; O2SAT 92–97
[2021-10-16] MEDS: VANCOMYCIN ORAL 125 MG/2.5 ML SYRUP PO ×4 (05:04→23:01)
[2021-10-16 05:44] LABS: Hematocrit 25.9 % (42.0-52.0); Hemoglobin 7.9 g/dL (14.0-18.0); Mean Corpuscular HGB Conc 30.5 g/dl (32-36); Mean Corpuscular Hemoglobin 29.5 pg (26-34); Mean Corpuscular Volume 96.6 fl (80-100); Mean Platelet Volume 11.7 fl (7.4-10.4); Platelet Count Result 83 k/mm3 (150-375); Red Blood Count 2.68 M/mm3 (4.6-6.20); Red Cell Distribution Width 16.9 % (11.5-14.5); White Blood Count 9.6 K/mm3 (4.5-10.0)
[2021-10-16 06:03] LABS: Albumin Level 2.3 g/dL (3.5-5.1); Anion Gap 5 mmol/L (8-16); Blood Urea Nitrogen 27 mg/dL (9-20); Calcium 7.3 mg/dL (8.4-10.2); Carbon Dioxide 32 mmol/L (22-30); Chloride 100 mmol/L (98-107); Estimated CRCL calculation 13 ml/min; Estimated Glomerular Filt Rate 14; Glucose 111 mg/dL (65-110); Phosphorus 2.4 mg/dL (2.5-4.5); Potassium 2.8 mmol/L (3.4-5.0); Sodium 137 mmol/L (137-145)
[2021-10-16 07:39] LABS: Glucose Point of Care 105 mg/dl (65-105)
[2021-10-16] MEDS: POTASSIUM CHLORIDE 20 MEQ TABLET.ER 40 MEQ PO (09:58)
[2021-10-16] MEDS: DONEPEZIL HCL 10 MG TABLET PO (09:58)
[2021-10-16] MEDS: ASPIRIN 325 MG TABLET FEED TUBE (09:58)
[2021-10-16] MEDS: FERROUS SULFATE 324 MG TABLET PO (09:58)
--- NOTE | 2021-10-16 09:58 | PCNFU ---
Nutrition Follow-Up Complete: Altered GI function related to motility as evidenced by diarrhea due to c.diff. Improved GI symptoms Goal: PO intake to remain 75% or greater most meals. Pt is progressing towards goal. Pt current nutrition is diabetic consistent carbohydrate diet. Last recorded weight is 84.7 kg. Weight is stable. Bowel Motility: + BM 10/15 Labs Reviewed: Hgb:7.9, Hct:25.9, Alb:2.3, K:2.8, GFR:14, BUN:27, Cr:1.4, Glu:111 Meds Noted: Ferrous sulfate, Lantus, melatonin, Protonix, Crestor Skin: Macerated wound on coccyx Additional Notes: Continue with current diet order. Nurse reported pt consumed all of breakfast this morning except for his applesauce. Monitor intake, labs, and weight and follow up in 7 days.
[2021-10-16] MEDS: PANTOPRAZOLE SODIUM IV 40 MG VIAL IV PUSH ×2 (09:59→23:01)
[2021-10-16] MEDS: INSULIN GLARGINE (*BKC) 100 UNITS/ML 10 UNITS SUB-Q (10:01)
--- NOTE | 2021-10-16 10:47 | PCNSR ---
On 10/16/21, the student, Ekaterina Gupta, provided care and completed [facility] documentation on this patient. I have reviewed the student's documentation and agree with the findings.
[2021-10-16 11:25] LABS: Glucose Point of Care 180 mg/dl (65-105)
[2021-10-16] MEDS: POTASSIUM/PHOSPHORUS/SODIUM 1.5 GM PACKET 2 PACKET PO (11:27)
--- NOTE | 2021-10-16 12:25 | PM.IMPN ---
Progress Note: A&P Assessment and Plan (1) Acute kidney failure: Qualifiers: Acute renal failure type: unspecified Qualified Code(s): N17.9 - Acute kidney failure, unspecified Code(s): N17.9 - Acute kidney failure, unspecified Status: Acute Assessment and Plan: likely to be pre renal azotemia due to unrelenting in diarrhea however patient with multiple factors that might be contributing to renal failure as well fluid resuscitation renal ultrasound unremarkable Jackson catheter placed daily intake and output nephrology consult Suspected due to ATN from infection COVID and C diff colitis As due to worsening renal dysfunction I an worsening fluid status initiated on RT/dialysis , baseline creatinine 1.9-2.5 (2) COVID-19: Code(s): U07.1 - COVID-19 Status: Acute Assessment and Plan: patient tested positive for COVID Not a candidate for remdesivir or baricitinib due to acute renal failure Since the course of ceftriaxone and azithromycin for possible pneumonia. received systemic steroids in emergency room continue to monitor supportive care (3) COPD exacerbation: Code(s): J44.1 - Chronic obstructive pulmonary disease with (acute) exacerbation Status: Acute Assessment and Plan: breathing treatments q.4 hours continue oxygen supplementation continue to monitor supportive care (4) Jlzkd-nf-ljrymqo kidney injury: Qualifiers: Acute renal failure type: unspecified Chronic kidney disease stage: stage 3 (moderate) Chronic kidney disease stage 3 subtype: stage 3b (GFR 30-44) Qualified Code(s): N17.9 - Acute kidney failure, unspecified; N18.32 - Chronic kidney disease, stage 3b Code(s): N17.9 - Acute kidney failure, unspecified; N18.9 - Chronic kidney disease, unspecified Status: Acute Assessment and Plan: see above (5) GERD (gastroesophageal reflux disease): Code(s): K21.9 - Gastro-esophageal reflux disease without esophagitis Status: Acute Assessment and Plan: PPI as needed (6) Acute hypoxemic respiratory failure: Code(s): J96.01 - Acute respiratory failure with hypoxia Status: Acute Assessment and Plan: initially was intubated and placed on ventilator Extubated Per 10/11/2021 continue BiPAP as needed (7) Type 2 diabetes mellitus with hyperglycemia, without long-term current use of insulin: Code(s): E11.65 - Type 2 diabetes mellitus with hyperglycemia Status: Acute Assessment and Plan: holding Januvia, Holding pioglitazone, holding ezetimibe Accu-Cheks AC and HS carb consistent diet (8) C. difficile diarrhea: Code(s): A04.72 - Enterocolitis due to Clostridium difficile, not specified as recurrent Status: Acute Assessment and Plan: patient in isolation started on vancomycin p.o.Started Plan DVT prophylaxis on Lovenox. Venous duplex 10/08/2021 showed small amount of right-sided tdsqd-cag-usqc ED PT at the proximal aspect of 1 of the paired posterior tibial vein at the right.With ongoing bleed anticoagulation for this DVT was stopped due to drop in H&H. And had been placed on prophylactic Lovenox since then. We can plan for repeat venous duplex since this is a cyzkp-aus-pgfd DVT if no progression might not need full-dose anticoagulation. Anemia with acute on chronic sitting willing dropped to6.7 on 10/09. Received 1 unit of PRBC transfusion. GI was consulted but no plans for EGD Right shoulder pain and weakness: x-ray with moderate polyarticular osteoarthritis with possible rotator cuff tear Subjective Date/time seen: 10/16/21 12:25 Interval history: 10/12/2021 interval history: 81-year-old male with acute respiratory failure secondary to congestive heart failure, COVID-19 and general anesthesia, COVID-19 patient treated with dexamethasone he is not a candidate for remdesivir due to chronic kidney disease patient
--- NOTE | 2021-10-16 14:58 | P.PNNP_ITS ---
Progress Note: A&P Assessment and Plan (1) ROEL (acute kidney injury): Code(s): N17.9 - Acute kidney failure, unspecified Status: Resolved Assessment and Plan: * suspect due to ATN from infection (COVD and C. 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 * planned HD today but unable to get treatment so plan HD tomorrow * follow electrolytes, volume status, clearance (2) Stage 3b chronic kidney disease: Code(s): N18.32 - Chronic kidney disease, stage 3b Status: Chronic Assessment and Plan: * baseline creatinine runs ~ 1.9 - 2.5mg/dl * felt to be secondary to diabetes, hypertension, vascular disease, and age based on outpatient evaluation (3) Hypokalemia: Code(s): E87.6 - Hypokalemia Status: Acute Assessment and Plan: * due to poor oral intake and GI losses (diarrhea) * on scheduled and PRN replacement * will adjust K+ bath with dialysis to compensate (4) COVID-19: Code(s): U07.1 - COVID-19 Status: Acute Assessment and Plan: * tested positive on admission * s/p steroids * supportive care (5) COPD exacerbation: Code(s): J44.1 - Chronic obstructive pulmonary disease with (acute) exacerbation Status: Acute Assessment and Plan: * respiratory status better * continue breathing treatments * supplemental oxygen (6) C. difficile diarrhea: Code(s): A04.72 - Enterocolitis due to Clostridium difficile, not specified as recurrent Status: Acute Assessment and Plan: * on oral vancomycin * patient in isolation (7) Anemia: Code(s): D64.9 - Anemia, unspecified Status: Chronic Assessment and Plan: * related to ROEL, CKD, and acute illness * Epogen with HD * follow H/H (8) Type 2 diabetes mellitus with hyperglycemia, without long-term current use of insulin: Code(s): E11.65 - Type 2 diabetes mellitus with hyperglycemia Status: Acute Assessment and Plan: * follow accuchecks * on SSI and Lantus Will continue to follow. Subjective Date/time seen: 10/16/21 14:58 Still with issues with hypokalemia and low phosphorus although phosphorus doing a bet better; was tentatively scheduled for dialysis today but dialysis staffing issues would not allow for this so plan HD tomorrow; diarrhea better(?); no acute distress noted. Exam Narrative: General: WD/WN male in NAD Heart: normal S1 and S2; no rub Lungs: coarse breath sounds Abdomen: soft, nontender, nondistended, positive bowel sounds Extremities: no cyanosis or clubbing; 1+ edema Skin: no rash Objective Data Vital Signs Vital Signs: Vital Signs Temp Pulse Resp BP Pulse Ox O2 Del Method FiO2 10/16/21 14:40 37.1 C 85 18 152/72 H 95 10/16/21 12:00 74 10/16/21 08:00 75 10/16/21 10:10 37.4 C 76 24 H 147/48 H 93 10/16/21 05:20 72 10/16/21 04:00 72 10/16/21 04:00 36.5 C 72 18 162/59 H 92 10/16/21 00:00 70 10/15/21 20:00 69 10/16/21
--- NOTE | 2021-10-16 14:58 | PM.PNNEP ---
Progress Note: A&P Assessment and Plan (1) ROEL (acute kidney injury): Code(s): N17.9 - Acute kidney failure, unspecified Status: Resolved Assessment and Plan: suspect due to ATN from infection (COVD and C. diff colitis) evaluation to date: urine culture with polymicrobial growth blood cultures negative urine electrolytes were prerenal due worsening renal dysfunction and worsening fluid status, initiated on F[employer] BOSS/dialysis planned HD today but unable to get treatment so plan HD tomorrow follow electrolytes, volume status, clearance (2) Stage 3b chronic kidney disease: Code(s): N18.32 - Chronic kidney disease, stage 3b Status: Chronic Assessment and Plan: baseline creatinine runs ~ 1.9 - 2.5mg/dl felt to be secondary to diabetes, hypertension, vascular disease, and age based on outpatient evaluation (3) Hypokalemia: Code(s): E87.6 - Hypokalemia Status: Acute Assessment and Plan: due to poor oral intake and GI losses (diarrhea) on scheduled and PRN replacement will adjust K+ bath with dialysis to compensate (4) COVID-19: Code(s): U07.1 - COVID-19 Status: Acute Assessment and Plan: tested positive on admission s/p steroids supportive care (5) COPD exacerbation: Code(s): J44.1 - Chronic obstructive pulmonary disease with (acute) exacerbation Status: Acute Assessment and Plan: respiratory status better continue breathing treatments supplemental oxygen (6) C. difficile diarrhea: Code(s): A04.72 - Enterocolitis due to Clostridium difficile, not specified as recurrent Status: Acute Assessment and Plan: on oral vancomycin patient in isolation (7) Anemia: Code(s): D64.9 - Anemia, unspecified Status: Chronic Assessment and Plan: related to ROEL, CKD, and acute illness Epogen with HD follow H/H (8) Type 2 diabetes mellitus with hyperglycemia, without long-term current use of insulin: Code(s): E11.65 - Type 2 diabetes mellitus with hyperglycemia Status: Acute Assessment and Plan: follow accuchecks on SSI and Lantus Will continue to follow. Subjective Date/time seen: 10/16/21 14:58 Still with issues with hypokalemia and low phosphorus although phosphorus doing a bet better; was tentatively scheduled for dialysis today but dialysis staffing issues would not allow for this so plan HD tomorrow; diarrhea better(?); no acute distress noted. Exam Narrative: General: WD/WN male in NAD Heart: normal S1 and S2; no rub Lungs: coarse breath sounds Abdomen: soft, nontender, nondistended, positive bowel sounds Extremities: no cyanosis or clubbing; 1+ edema Skin: no rash Objective Data Vital Signs Vital Signs: Vital Signs Temp Pulse Resp BP Pulse Ox O2 Del Method FiO2 10/16/21 14:40 37.1 C 85 18 152/72 H 95 10/16/21 12:00 74 10/16/21 08:00 75 10/16/21 10:10 37.4 C 76 24 H 147/48 H 93 10/16/21 05:20 72 10/16/21 04:00 72 10/16/21 04:00 36.5 C 72 18 162/59 H 92 10/16/21 00:00 70 10/15/21 20:00 69 10/16/21 00:00 36.6 C 76 20 157/57 H 94 10/15/21 20:00 67 16 98 Room Air 30 10/15/21 20:00 36.5 C 67 16 160/62 H 98 Intake/Output Intake/Output: Intake & Output 10/13/21 10/14/21 10/15/21 10/16/21 23:59 23:59 23:59 23:59 Intake Total 000 201 6304 970 Output Total 100 3345 75 50 Balance 300 -2595 955 920 Meds/Results Medications: Active Medications Generic Name Dose Route Start Last Admin Trade Name Freq PRN Reason Stop Dose Admin Acetaminophen 500 mg 10/09/21 15:21 Acetaminophen 500 Mg Tablet PO Q6H PRN Mild Pain (1-3) or Fever Hydrocodone Bitart/Acetaminophen 1 tab 10/09/21 15:21 Hydrocodone/Acetaminophen (*Crx) 5-325 Mg Tablet PO Q4H PRN Pain Rated 4-6 Aspirin 325 m
[2021-10-16 16:42] LABS: Glucose Point of Care 219 mg/dl (65-105)
[2021-10-16] MEDS: INSULIN ASPART (*BKC) 100 UNITS/ML SUB-Q (17:39)
--- NOTE | 2021-10-16 19:56 | PC.NURSE ---
Dialysis field education director notified at 1145 of patient needing dialysis today. Spoke with Hero NUNEZ.
[2021-10-16 20:59] LABS: Glucose Point of Care 181 mg/dl (65-105)
[2021-10-16] MEDS: ROSUVASTATIN 10 MG TABLET 20 MG PO (23:01)
[2021-10-17] VITALS (31 sets, daily range): BP systolic 110–178; BP diastolic 54–86; PULSE 63–86; RESP 16–22; TEMP 35.3–37.3; O2SAT 93–99
[2021-10-17] MEDS: VANCOMYCIN ORAL 125 MG/2.5 ML SYRUP PO (06:35)
[2021-10-17 06:48] LABS: Basophils Percent Auto 0.1 % (0.2-1.2); Eosinophils Percent Auto 0.3 % (0-4.4); Hematocrit 25.7 % (42.0-52.0); Hemoglobin 7.8 g/dL (14.0-18.0); Immature Granulocyte Absolute 0.15 K/mm3 (0.00-0.031); Immature Granulocyte Percent A 1.6 % (0-0.5); Immature Platelet Fraction Pct 6.9 % (0.9-11.2); Lymphocytes Absolute Auto 0.84 K/mm3 (0.9-3.2); Lymphocytes Percent Auto 8.7 % (18.3-44.2); Mean Corpuscular HGB Conc 30.4 g/dl (32-36); Mean Corpuscular Hemoglobin 30.1 pg (26-34); Mean Corpuscular Volume 99.2 fl (80-100); Mean Platelet Volume 12.2 fl (7.4-10.4); Monocytes Absolute Auto 0.5 K/mm3 (0.1-0.6); Monocytes Percent Auto 5.4 % (2.6-8.5); Neutrophils Absolute Auto 8.1 K/mm3 (1.3-6.7); Neutrophils Percent Auto 83.9 % (45.5-73.1); Platelet Count Result 87 k/mm3 (150-375); Red Blood Count 2.59 M/mm3 (4.6-6.20); Red Cell Distribution Width 17.7 % (11.5-14.5); White Blood Count 9.6 K/mm3 (4.5-10.0)
[2021-10-17 07:28] LABS: Alanine Aminotransferase 16 U/L (6-50); Albumin Level 2.3 g/dL (3.5-5.1); Alkaline Phosphatase 51 U/L (38-126); Anion Gap 5 mmol/L (8-16); Aspartate Amino Transferase 30 U/L (17-59); Bilirubin,Total 0.6 mg/dL (0.2-1.3); Blood Urea Nitrogen 37 mg/dL (9-20); Calcium 6.9 mg/dL (8.4-10.2); Carbon Dioxide 30 mmol/L (22-30); Chloride 102 mmol/L (98-107); Estimated CRCL calculation 10 ml/min; Estimated Glomerular Filt Rate 11; Glucose 95 mg/dL (65-110); Phosphorus 3.9 mg/dL (2.5-4.5); Potassium 3.8 mmol/L (3.4-5.0); Sodium 137 mmol/L (137-145)
[2021-10-17 07:38] LABS: Glucose Point of Care 96 mg/dl (65-105)
[2021-10-17 07:40] LABS: Magnesium 1.9 mg/dL (1.6-2.3)
[2021-10-17] MEDS: INSULIN GLARGINE (*BKC) 100 UNITS/ML 10 UNITS SUB-Q (08:32)
[2021-10-17] MEDS: POTASSIUM CHLORIDE 20 MEQ TABLET.ER 40 MEQ PO (08:37)
[2021-10-17] MEDS: FERROUS SULFATE 324 MG TABLET PO (08:37)
[2021-10-17] MEDS: DONEPEZIL HCL 10 MG TABLET PO (08:37)
[2021-10-17] MEDS: ASPIRIN 325 MG TABLET FEED TUBE (08:38)
[2021-10-17] MEDS: PANTOPRAZOLE SODIUM IV 40 MG VIAL IV PUSH ×2 (08:38→19:57)
[2021-10-17] MEDS: FLUTICASONE/UMECLIDIN/VILANTER 100-62.5-25 MCG ELLIPTA 1 PUFF INHALATION (09:46)
[2021-10-17 12:00] LABS: Glucose Point of Care 197 mg/dl (65-105)
--- NOTE | 2021-10-17 14:07 | PC.NURSE ---
pt to dialysis via bed
--- NOTE | 2021-10-17 14:11 | PM.IMPN ---
Progress Note: A&P Assessment and Plan (1) Acute kidney failure: Qualifiers: Acute renal failure type: unspecified Qualified Code(s): N17.9 - Acute kidney failure, unspecified Code(s): N17.9 - Acute kidney failure, unspecified Status: Acute Assessment and Plan: likely to be pre renal azotemia due to unrelenting in diarrhea however patient with multiple factors that might be contributing to renal failure as well fluid resuscitation renal ultrasound unremarkable Jackson catheter placed daily intake and output nephrology consult Suspected due to ATN from infection COVID and C diff colitis As due to worsening renal dysfunction I an worsening fluid status initiated on RT/dialysis , baseline creatinine 1.9-2.5 (2) COVID-19: Code(s): U07.1 - COVID-19 Status: Acute Assessment and Plan: patient tested positive for COVID Not a candidate for remdesivir or baricitinib due to acute renal failure Since the course of ceftriaxone and azithromycin for possible pneumonia. received systemic steroids in emergency room continue to monitor supportive care Finished Maradron 10/17/2021 (3) COPD exacerbation: Code(s): J44.1 - Chronic obstructive pulmonary disease with (acute) exacerbation Status: Acute Assessment and Plan: breathing treatments q.4 hours continue oxygen supplementation continue to monitor supportive care (4) Mhzlc-iv-xefvtra kidney injury: Qualifiers: Acute renal failure type: unspecified Chronic kidney disease stage: stage 3 (moderate) Chronic kidney disease stage 3 subtype: stage 3b (GFR 30-44) Qualified Code(s): N17.9 - Acute kidney failure, unspecified; N18.32 - Chronic kidney disease, stage 3b Code(s): N17.9 - Acute kidney failure, unspecified; N18.9 - Chronic kidney disease, unspecified Status: Acute Assessment and Plan: see above (5) GERD (gastroesophageal reflux disease): Code(s): K21.9 - Gastro-esophageal reflux disease without esophagitis Status: Acute Assessment and Plan: PPI as needed (6) Acute hypoxemic respiratory failure: Code(s): J96.01 - Acute respiratory failure with hypoxia Status: Acute Assessment and Plan: initially was intubated and placed on ventilator Extubated Per 10/11/2021 continue BiPAP as needed (7) Type 2 diabetes mellitus with hyperglycemia, without long-term current use of insulin: Code(s): E11.65 - Type 2 diabetes mellitus with hyperglycemia Status: Acute Assessment and Plan: holding Januvia, Holding pioglitazone, holding ezetimibe Accu-Cheks AC and HS carb consistent diet (8) C. difficile diarrhea: Code(s): A04.72 - Enterocolitis due to Clostridium difficile, not specified as recurrent Status: Acute Assessment and Plan: patient in isolation started on vancomycin p.o.Started Finished course of vancomycin. Will monitor stool output Plan DVT prophylaxis on Lovenox. Venous duplex 10/08/2021 showed small amount of right-sided qfcan-crf-bdkg ED PT at the proximal aspect of 1 of the paired posterior tibial vein at the right.With ongoing bleed anticoagulation for this DVT was stopped due to drop in H&H. And had been placed on prophylactic Lovenox since then. We can plan for repeat venous duplex since this is a hgdik-kzj-vszv DVT if no progression might not need full-dose anticoagulation. Anemia with acute on chronic sitting willing dropped to 6.7 on 10/09. Received 1 unit of PRBC transfusion. GI was consulted but no plans for EGD Right shoulder pain and weakness: x-ray with moderate polyarticular osteoarthritis with possible rotator cuff tear Subjective Date/time seen: 10/17/21 14:11 Interval history: 10/12/2021 interval history: 81-year-old male with acute respiratory failure secondary to congestive heart failure, COVID-19 and general anesthesia, COVID-19 patient treated with de
--- NOTE | 2021-10-17 14:25 | PM.PNNEP ---
Progress Note: A&P Assessment and Plan (1) ROEL (acute kidney injury): Code(s): N17.9 - Acute kidney failure, unspecified Status: Resolved Assessment and Plan: suspect due to ATN from infection (COVID and C. diff colitis) evaluation to date: urine culture with polymicrobial growth blood cultures negative urine electrolytes were prerenal due worsening renal dysfunction and worsening fluid status, initiated on [employer] ADMINSTRATOR/dialysis HD today since unable to get treatment yesterday follow electrolytes, volume status, clearance (2) Stage 3b chronic kidney disease: Code(s): N18.32 - Chronic kidney disease, stage 3b Status: Chronic Assessment and Plan: baseline creatinine runs ~ 1.9 - 2.5mg/dl felt to be secondary to diabetes, hypertension, vascular disease, and age based on outpatient evaluation (3) Hypokalemia: Code(s): E87.6 - Hypokalemia Status: Acute Assessment and Plan: due to poor oral intake and GI losses (diarrhea) on scheduled and PRN replacement will adjust K+ bath with dialysis to compensate (4) COVID-19: Code(s): U07.1 - COVID-19 Status: Acute Assessment and Plan: tested positive on admission s/p steroids supportive care (5) COPD exacerbation: Code(s): J44.1 - Chronic obstructive pulmonary disease with (acute) exacerbation Status: Acute Assessment and Plan: respiratory status better continue breathing treatments supplemental oxygen (6) C. difficile diarrhea: Code(s): A04.72 - Enterocolitis due to Clostridium difficile, not specified as recurrent Status: Acute Assessment and Plan: on oral vancomycin patient in isolation (7) Anemia: Code(s): D64.9 - Anemia, unspecified Status: Chronic Assessment and Plan: related to ROEL, CKD, and acute illness Epogen with HD follow H/H (8) Type 2 diabetes mellitus with hyperglycemia, without long-term current use of insulin: Code(s): E11.65 - Type 2 diabetes mellitus with hyperglycemia Status: Acute Assessment and Plan: follow accuchecks on SSI and Lantus Will continue to follow. Subjective Date/time seen: 10/17/21 14:13 Tolerating hemodialysis treatment at the time of my visit (seen on HD at ~ 2:00pm); diarrhea seems to be slowing down at least overnight and today; no apparent distress voiced; no other issues/events overnight or earlier this AM. Exam Narrative: General: WD/WN male in NAD Heart: normal S1 and S2; no rub Lungs: coarse breath sounds Abdomen: soft, nontender, nondistended, positive bowel sounds Extremities: no cyanosis or clubbing; 1+ edema Skin: no rash Objective Data Vital Signs Vital Signs: Vital Signs Temp Pulse Resp BP Pulse Ox O2 Del Method O2 Flow Rate 10/17/21 14:25 69 146/70 H 10/17/21 13:55 2 10/17/21 13:55 36.7 C 81 16 144/65 H 10/17/21 14:03 77 139/67 10/17/21 08:30 68 18 93 Nasal Cannula 4 10/17/21 10:23 36.4 C 72 20 139/54 L 94 10/17/21 09:46 80 18 10/17/21 04:00 36.9 C 78 22 H 150/72 H 99 10/17/21 04:00 65 10/17/21 02:14 76 18 10/17/21 02:04 76 18 10/17/21 00:00 36.8 C 76 18 154/70 H 98 10/16/21 20:57 72 18 10/16/21 20:47 72 18 10/16/21 20:47 72 18 97 Nasal Cannula 2 10/16/21 20:00 67 10/16/21 20:00 81 22 H 97 Room Air 10/16/21 20:00 37.0 C 81 22 H 171/70 H 97 Intake/Output Intake/Output: Intake & Output 10/14/21 10/15/21 10/16/21 10/17/21 23:59 23:59 23:59 23:59 Intake Total 750 1030 970 50 Output Total 3345 75 50 250 Balance -2595 955 920 -200 Meds/Results Medications: Active Medications Generic Name Dose Route Start Last Admin Trade Name Freq PRN Reason Stop Dose Admin Acetaminophen 500 mg 10/09/21 15:21 Acetaminophen 500 Mg Tablet PO Q6H PRN
--- NOTE | 2021-10-17 14:25 | P.PNNP_ITS ---
Progress Note: A&P Assessment and Plan (1) ROEL (acute kidney injury): Code(s): N17.9 - Acute kidney failure, unspecified Status: Resolved Assessment and Plan: * suspect due to ATN from infection (COVID and C. 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 * HD today since unable to get treatment yesterday * follow electrolytes, volume status, clearance (2) Stage 3b chronic kidney disease: Code(s): N18.32 - Chronic kidney disease, stage 3b Status: Chronic Assessment and Plan: * baseline creatinine runs ~ 1.9 - 2.5mg/dl * felt to be secondary to diabetes, hypertension, vascular disease, and age based on outpatient evaluation (3) Hypokalemia: Code(s): E87.6 - Hypokalemia Status: Acute Assessment and Plan: * due to poor oral intake and GI losses (diarrhea) * on scheduled and PRN replacement * will adjust K+ bath with dialysis to compensate (4) COVID-19: Code(s): U07.1 - COVID-19 Status: Acute Assessment and Plan: * tested positive on admission * s/p steroids * supportive care (5) COPD exacerbation: Code(s): J44.1 - Chronic obstructive pulmonary disease with (acute) exacerbation Status: Acute Assessment and Plan: * respiratory status better * continue breathing treatments * supplemental oxygen (6) C. difficile diarrhea: Code(s): A04.72 - Enterocolitis due to Clostridium difficile, not specified as recurrent Status: Acute Assessment and Plan: * on oral vancomycin * patient in isolation (7) Anemia: Code(s): D64.9 - Anemia, unspecified Status: Chronic Assessment and Plan: * related to ROEL, CKD, and acute illness * Epogen with HD * follow H/H (8) Type 2 diabetes mellitus with hyperglycemia, without long-term current use of insulin: Code(s): E11.65 - Type 2 diabetes mellitus with hyperglycemia Status: Acute Assessment and Plan: * follow accuchecks * on SSI and Lantus Will continue to follow. Subjective Date/time seen: 10/17/21 14:13 Tolerating hemodialysis treatment at the time of my visit (seen on HD at ~ 2:00pm); diarrhea seems to be slowing down at least overnight and today; no apparent distress voiced; no other issues/events overnight or earlier this AM. Exam Narrative: General: WD/WN male in NAD Heart: normal S1 and S2; no rub Lungs: coarse breath sounds Abdomen: soft, nontender, nondistended, positive bowel sounds Extremities: no cyanosis or clubbing; 1+ edema Skin: no rash Objective Data Vital Signs Vital Signs: Vital Signs Temp Pulse Resp BP Pulse Ox O2 Del Method O2 Flow Rate 10/17/21 14:25 69 146/70 H 10/17/21 13:55 2 10/17/21 13:55 36.7 C 81 16 144/65 H 10/17/21 14:03 77 139/67 10/17/21 08:30 68 18 93 Nasal Cannula 4 10/17/21 10:23 36.4 C 72 20 139/54 L 94 10/17/21 09:46 80 18 10/17/21 04:00 36.9 C 78 22 H 150/72 H 99 10/17/21 04:00 65 10/17/21
[2021-10-17] MEDS: EPOETIN ALFA-EPBX 10,000 UNITS/ML VIAL 10000 UNITS IV PUSH (15:00)
[2021-10-17] MEDS: SODIUM CHLORIDE 0.9% IV 1,000 ML 999 ML IV CONT (15:00)
--- NOTE | 2021-10-17 15:37 | PCCCNOTE ---
On 10/17/21, the student, Flower Montano, provided care and completed [facility] documentation on this patient. I have reviewed the student's documentation and agree with the findings.
--- NOTE | 2021-10-17 18:09 | PC.NURSE ---
pt returned from dialysis, resting comfortably
[2021-10-17 18:12] LABS: Glucose Point of Care 162 mg/dl (65-105)
[2021-10-17] MEDS: ROSUVASTATIN 10 MG TABLET 20 MG PO (19:56)
[2021-10-17 21:27] LABS: Glucose Point of Care 205 mg/dl (65-105)
[2021-10-18] VITALS (15 sets, daily range): BP systolic 100–159; BP diastolic 52–60; PULSE 66–82; RESP 16–18; TEMP 36.8–37.2; O2SAT 95–98
[2021-10-18 05:43] LABS: Alanine Aminotransferase 18 U/L (6-50); Albumin Level 2.4 g/dL (3.5-5.1); Alkaline Phosphatase 68 U/L (38-126); Anion Gap 3 mmol/L (8-16); Aspartate Amino Transferase 29 U/L (17-59); Bilirubin,Total 0.5 mg/dL (0.2-1.3); Blood Urea Nitrogen 18 mg/dL (9-20); Calcium 7.4 mg/dL (8.4-10.2); Carbon Dioxide 29 mmol/L (22-30); Chloride 106 mmol/L (98-107); Estimated CRCL calculation 15 ml/min; Estimated Glomerular Filt Rate 18; Glucose 93 mg/dL (65-110); Magnesium 1.8 mg/dL (1.6-2.3); Phosphorus 2.5 mg/dL (2.5-4.5); Potassium 3.6 mmol/L (3.4-5.0); Sodium 138 mmol/L (137-145)
[2021-10-18 05:50] LABS: Basophils Percent Auto 0.1 % (0.2-1.2); Eosinophils Percent Auto 0.1 % (0-4.4); Hematocrit 25.7 % (42.0-52.0); Hemoglobin 7.6 g/dL (14.0-18.0); Immature Platelet Fraction Pct 7.8 % (0.9-11.2); Lymphocytes Absolute Auto 0.76 K/mm3 (0.9-3.2); Lymphocytes Percent Auto 7.4 % (18.3-44.2); Mean Corpuscular HGB Conc 29.6 g/dl (32-36); Mean Corpuscular Hemoglobin 29.6 pg (26-34); Mean Platelet Volume 11.7 fl (7.4-10.4); Monocytes Absolute Auto 0.6 K/mm3 (0.1-0.6); Monocytes Percent Auto 5.5 % (2.6-8.5); Neutrophils Absolute Auto 8.8 K/mm3 (1.3-6.7); Neutrophils Percent Auto 85.9 % (45.5-73.1); Nucleated Red Blood Cells Perc 0.2 % (0.0-0.2); Platelet Count Result 76 k/mm3 (150-375); Red Blood Count 2.57 M/mm3 (4.6-6.20); Red Cell Distribution Width 18.1 % (11.5-14.5); White Blood Count 10.2 K/mm3 (4.5-10.0)
[2021-10-18 07:42] LABS: Glucose Point of Care 97 mg/dl (65-105)
[2021-10-18] MEDS: FLUTICASONE/UMECLIDIN/VILANTER 100-62.5-25 MCG ELLIPTA 1 PUFF INHALATION (08:05)
[2021-10-18] MEDS: INSULIN GLARGINE (*BKC) 100 UNITS/ML 10 UNITS SUB-Q (08:33)
[2021-10-18] MEDS: DONEPEZIL HCL 10 MG TABLET PO (08:35)
[2021-10-18] MEDS: ASPIRIN 325 MG TABLET FEED TUBE (08:35)
[2021-10-18] MEDS: FERROUS SULFATE 324 MG TABLET PO (08:36)
[2021-10-18] MEDS: PANTOPRAZOLE SODIUM IV 40 MG VIAL IV PUSH ×2 (08:36→20:46)
[2021-10-18] MEDS: POTASSIUM CHLORIDE 20 MEQ TABLET.ER 40 MEQ PO (08:36)
--- NOTE | 2021-10-18 11:04 | PCOTNOTE ---
Attempted to see patient, patient very agitated this AM. Per RN, patient upset this morning due to extended hospitalization and was discussing leaving AMA. RN notified patient he still needs to set up his chair time with dialysis and is unsafe with ambulation. Patient's RN however, also informed patient that he is no longer on covid isolation and was told he can have 2 visitors each day. Patient called family member, still upset, while this therapist tried to ascertain if patient would be willing to participate in OT. Patient stated I don't know what I want and continued to talk on phone. Will attempt to see patient for OT this PM.
[2021-10-18 11:25] LABS: Glucose Point of Care 197 mg/dl (65-105)
--- NOTE | 2021-10-18 13:15 | PM.IMPN ---
Progress Note: A&P Assessment and Plan (1) Acute kidney failure: Qualifiers: Acute renal failure type: unspecified Qualified Code(s): N17.9 - Acute kidney failure, unspecified Code(s): N17.9 - Acute kidney failure, unspecified Status: Acute Assessment and Plan: likely to be pre renal azotemia due to unrelenting in diarrhea however patient with multiple factors that might be contributing to renal failure as well fluid resuscitation renal ultrasound unremarkable Jackson catheter placed daily intake and output nephrology consult Suspected due to ATN from infection COVID and C diff colitis As due to worsening renal dysfunction and worsening fluid status initiated on RT/dialysis , baseline creatinine 1.9-2.5 Needs chair time for dialysis schedule outpatient (2) COVID-19: Code(s): U07.1 - COVID-19 Status: Acute Assessment and Plan: patient tested positive for COVID Not a candidate for remdesivir or baricitinib due to acute renal failure Since the course of ceftriaxone and azithromycin for possible pneumonia. received systemic steroids in emergency room continue to monitor supportive care Finished Maradron 10/17/2021 (3) COPD exacerbation: Code(s): J44.1 - Chronic obstructive pulmonary disease with (acute) exacerbation Status: Acute Assessment and Plan: breathing treatments q.4 hours continue oxygen supplementation continue to monitor supportive care (4) Zuymb-ts-mdryyrj kidney injury: Qualifiers: Acute renal failure type: unspecified Chronic kidney disease stage: stage 3 (moderate) Chronic kidney disease stage 3 subtype: stage 3b (GFR 30-44) Qualified Code(s): N17.9 - Acute kidney failure, unspecified; N18.32 - Chronic kidney disease, stage 3b Code(s): N17.9 - Acute kidney failure, unspecified; N18.9 - Chronic kidney disease, unspecified Status: Acute Assessment and Plan: see above (5) GERD (gastroesophageal reflux disease): Code(s): K21.9 - Gastro-esophageal reflux disease without esophagitis Status: Acute Assessment and Plan: PPI as needed (6) Acute hypoxemic respiratory failure: Code(s): J96.01 - Acute respiratory failure with hypoxia Status: Acute Assessment and Plan: initially was intubated and placed on ventilator Extubated Per 10/11/2021 continue BiPAP as needed (7) Type 2 diabetes mellitus with hyperglycemia, without long-term current use of insulin: Code(s): E11.65 - Type 2 diabetes mellitus with hyperglycemia Status: Acute Assessment and Plan: holding Januvia, Holding pioglitazone, holding ezetimibe Accu-Cheks AC and HS carb consistent diet (8) C. difficile diarrhea: Code(s): A04.72 - Enterocolitis due to Clostridium difficile, not specified as recurrent Status: Acute Assessment and Plan: patient in isolation started on vancomycin p.o.Started Finished course of vancomycin. Will monitor stool output Plan DVT prophylaxis on Lovenox. Venous duplex 10/08/2021 showed small amount of right-sided mecys-byt-nqck ED PT at the proximal aspect of 1 of the paired posterior tibial vein at the right.With ongoing bleed anticoagulation for this DVT was stopped due to drop in H&H. And had been placed on prophylactic Lovenox since then. We can plan for repeat venous duplex since this is a qohyn-jez-cwyc DVT if no progression might not need full-dose anticoagulation. Anemia with acute on chronic sitting willing dropped to 6.7 on 10/09. Received 1 unit of PRBC transfusion. GI was consulted but no plans for EGD Right shoulder pain and weakness: x-ray with moderate polyarticular osteoarthritis with possible rotator cuff tear Subjective Date/time seen: 10/18/21 13:15 Interval history: 10/12/2021 interval history: 81-year-old male with acute respiratory failure secondary to congestive heart failure, COVID-19 and ge
--- NOTE | 2021-10-18 13:17 | P.PNNP_ITS ---
Progress Note: A&P Assessment and Plan (1) ROEL (acute kidney injury): Code(s): N17.9 - Acute kidney failure, unspecified Status: Resolved Assessment and Plan: * suspect due to ATN from infection (COVID and C. diff colitis) * evaluation to date: * urine culture with polymicrobial growth * blood cultures negative * urine electrolytes were prerenal * due worsening renal dysfunction and worsening fluid status, initiated on PHOTO STUDIO ASSISTANT/dialysis * HD tomorrow and continue 3x/week * will likely need to continue PHOTO STUDIO ASSISTANT/dialysis on discharge * follow electrolytes, volume status, clearance (2) Stage 3b chronic kidney disease: Code(s): N18.32 - Chronic kidney disease, stage 3b Status: Chronic Assessment and Plan: * baseline creatinine runs ~ 1.9 - 2.5mg/dl * felt to be secondary to diabetes, hypertension, vascular disease, and age based on outpatient evaluation (3) Hypokalemia: Code(s): E87.6 - Hypokalemia Status: Acute Assessment and Plan: * stabilizing * due to poor oral intake and GI losses (diarrhea) * on scheduled and PRN replacement * follow trend (4) COVID-19: Code(s): U07.1 - COVID-19 Status: Acute Assessment and Plan: * tested positive on admission * s/p steroids * supportive care (5) COPD exacerbation: Code(s): J44.1 - Chronic obstructive pulmonary disease with (acute) exacerbation Status: Acute Assessment and Plan: * respiratory status better * continue breathing treatments * supplemental oxygen (6) C. difficile diarrhea: Code(s): A04.72 - Enterocolitis due to Clostridium difficile, not specified as recurrent Status: Acute Assessment and Plan: * on oral vancomycin * patient in isolation (7) Anemia: Code(s): D64.9 - Anemia, unspecified Status: Chronic Assessment and Plan: * related to ROEL, CKD, and acute illness * Epogen with HD * follow H/H (8) Type 2 diabetes mellitus with hyperglycemia, without long-term current use of insulin: Code(s): E11.65 - Type 2 diabetes mellitus with hyperglycemia Status: Acute Assessment and Plan: * follow accuchecks * on SSI and Lantus Will continue to follow. Subjective Date/time seen: 10/18/21 13:17 Tolerated hemodialysis treatment yesterday without any issue or problems; diarrhea/bowel movement appears to be slowly improving; no apparent distress voiced at the time of my visit; no acute issues/events overnight or earlier this AM. Exam Narrative: General: WD/WN male in NAD Heart: normal S1 and S2; no rub Lungs: coarse breath sounds Abdomen: soft, nontender, nondistended, positive bowel sounds Extremities: no cyanosis or clubbing; trace edema Skin: warm and dry Objective Data Vital Signs Vital Signs: Vital Signs Temp Pulse Resp BP Pulse Ox O2 Del Method O2 Flow Rate 10/18/21 12:00 37.2 C 74 18 159/58 H 98 10/18/21 08:12 73 18 10/18/21 08:05 70 95 Room Air 10/18/21 08:00 36.8 C 82 18 124/56 L 96 10/18/21 04:00 37.1 C 68 18 100/60 97 10/18/21 04:00 69 10/18/21 01:51 71 18 10/18/21 01:40 67 18 10/18/21 00:00 70
--- NOTE | 2021-10-18 13:17 | PM.PNNEP ---
Progress Note: A&P Assessment and Plan (1) ROEL (acute kidney injury): Code(s): N17.9 - Acute kidney failure, unspecified Status: Resolved Assessment and Plan: suspect due to ATN from infection (COVID and C. diff colitis) evaluation to date: urine culture with polymicrobial growth blood cultures negative urine electrolytes were prerenal due worsening renal dysfunction and worsening fluid status, initiated on MOBILE LOUNGE DRIVER/dialysis HD tomorrow and continue 3x/week will likely need to continue MOBILE LOUNGE DRIVER/dialysis on discharge follow electrolytes, volume status, clearance (2) Stage 3b chronic kidney disease: Code(s): N18.32 - Chronic kidney disease, stage 3b Status: Chronic Assessment and Plan: baseline creatinine runs ~ 1.9 - 2.5mg/dl felt to be secondary to diabetes, hypertension, vascular disease, and age based on outpatient evaluation (3) Hypokalemia: Code(s): E87.6 - Hypokalemia Status: Acute Assessment and Plan: stabilizing due to poor oral intake and GI losses (diarrhea) on scheduled and PRN replacement follow trend (4) COVID-19: Code(s): U07.1 - COVID-19 Status: Acute Assessment and Plan: tested positive on admission s/p steroids supportive care (5) COPD exacerbation: Code(s): J44.1 - Chronic obstructive pulmonary disease with (acute) exacerbation Status: Acute Assessment and Plan: respiratory status better continue breathing treatments supplemental oxygen (6) C. difficile diarrhea: Code(s): A04.72 - Enterocolitis due to Clostridium difficile, not specified as recurrent Status: Acute Assessment and Plan: on oral vancomycin patient in isolation (7) Anemia: Code(s): D64.9 - Anemia, unspecified Status: Chronic Assessment and Plan: related to ROEL, CKD, and acute illness Epogen with HD follow H/H (8) Type 2 diabetes mellitus with hyperglycemia, without long-term current use of insulin: Code(s): E11.65 - Type 2 diabetes mellitus with hyperglycemia Status: Acute Assessment and Plan: follow accuchecks on SSI and Lantus Will continue to follow. Subjective Date/time seen: 10/18/21 13:17 Tolerated hemodialysis treatment yesterday without any issue or problems; diarrhea/bowel movement appears to be slowly improving; no apparent distress voiced at the time of my visit; no acute issues/events overnight or earlier this AM. Exam Narrative: General: WD/WN male in NAD Heart: normal S1 and S2; no rub Lungs: coarse breath sounds Abdomen: soft, nontender, nondistended, positive bowel sounds Extremities: no cyanosis or clubbing; trace edema Skin: warm and dry Objective Data Vital Signs Vital Signs: Vital Signs Temp Pulse Resp BP Pulse Ox O2 Del Method O2 Flow Rate 10/18/21 12:00 37.2 C 74 18 159/58 H 98 10/18/21 08:12 73 18 10/18/21 08:05 70 95 Room Air 10/18/21 08:00 36.8 C 82 18 124/56 L 96 10/18/21 04:00 37.1 C 68 18 100/60 97 10/18/21 04:00 69 10/18/21 01:51 71 18 10/18/21 01:40 67 18 10/18/21 00:00 70 10/17/21 23:59 37.3 C 70 18 116/60 96 10/17/21 21:44 96 Room Air 10/17/21 21:43 72 18 10/17/21 21:30 67 18 10/17/21 20:00 76 20 96 Nasal Cannula 3 10/17/21 20:00 76 10/17/21 20:00 37.3 C 86 20 110/59 L 96 10/17/21 18:50 35.8 C L 74 20 141/56 H 97 10/17/21 17:43 36.5 C 68 16 171/80 H 10/17/21 17:35 65 178/86 H 10/17/21 16:00 65 10/17/21 17:25 66 168/78 H 10/17/21 17:05 63 161/83 H 10/17/21 16:45 65 154/77 H 10/17/21 16:25 66 150/76 H 10/17/21 16:05 69 156/72 H 10/17/21 15:45 64 159/80 H 10/17/21 15:25 65 150/72 H 10/17/21 15:05 66 155/78 H 10/17/21 14:45 67 152/72 H 10/17/21 1
[2021-10-18 16:24] LABS: Glucose Point of Care 136 mg/dl (65-105)
[2021-10-18] MEDS: ROSUVASTATIN 10 MG TABLET 20 MG PO (20:46)
[2021-10-18 20:57] LABS: Glucose Point of Care 140 mg/dl (65-105)
[2021-10-19] VITALS (32 sets, daily range): BP systolic 123–187; BP diastolic 52–97; PULSE 69–90; RESP 14–20; TEMP 35.6–37.3; O2SAT 94–98
[2021-10-19 05:20] LABS: Hematocrit 25.1 % (42.0-52.0); Hemoglobin 7.5 g/dL (14.0-18.0); Immature Platelet Fraction Pct 6.8 % (0.9-11.2); Mean Corpuscular HGB Conc 29.9 g/dl (32-36); Mean Corpuscular Hemoglobin 29.4 pg (26-34); Mean Corpuscular Volume 98.4 fl (80-100); Mean Platelet Volume 11.4 fl (7.4-10.4); Platelet Count Result 74 k/mm3 (150-375); Red Blood Count 2.55 M/mm3 (4.6-6.20); Red Cell Distribution Width 18.1 % (11.5-14.5); White Blood Count 9.5 K/mm3 (4.5-10.0)
[2021-10-19 05:38] LABS: Albumin Level 2.4 g/dL (3.5-5.1); Anion Gap 5 mmol/L (8-16); Blood Urea Nitrogen 20 mg/dL (9-20); Calcium 7.5 mg/dL (8.4-10.2); Carbon Dioxide 25 mmol/L (22-30); Chloride 106 mmol/L (98-107); Estimated CRCL calculation 11 ml/min; Estimated Glomerular Filt Rate 12; Glucose 105 mg/dL (65-110); Potassium 3.4 mmol/L (3.4-5.0); Sodium 136 mmol/L (137-145)
[2021-10-19 07:42] LABS: Glucose Point of Care 103 mg/dl (65-105)
[2021-10-19] MEDS: INSULIN GLARGINE (*BKC) 100 UNITS/ML 10 UNITS SUB-Q (08:28)
[2021-10-19] MEDS: FERROUS SULFATE 324 MG TABLET PO (08:30)
[2021-10-19] MEDS: ASPIRIN 325 MG TABLET FEED TUBE (08:30)
[2021-10-19] MEDS: DONEPEZIL HCL 10 MG TABLET PO (08:30)
[2021-10-19] MEDS: POTASSIUM CHLORIDE 20 MEQ TABLET.ER 40 MEQ PO (08:31)
[2021-10-19] MEDS: PANTOPRAZOLE SODIUM IV 40 MG VIAL IV PUSH (08:31)
--- NOTE | 2021-10-19 08:50 | PC.NURSE ---
pt to dialysis via bed
--- NOTE | 2021-10-19 08:55 | PCPTNOTE ---
The patient treatment was not able to be completed on 10/19/2021 due to patient out of room for dialysis. Will plan to continue treatment per plan of care.
[2021-10-19] MEDS: SODIUM CHLORIDE 0.9% IV 1,000 ML 999 ML IV CONT (11:38)
--- NOTE | 2021-10-19 12:32 | P.PNNP_ITS ---
Progress Note: A&P Assessment and Plan (1) ROEL (acute kidney injury): Code(s): N17.9 - Acute kidney failure, unspecified Status: Resolved Assessment and Plan: * suspect due to ATN from infection (COVID and C. diff colitis) * evaluation to date: * urine culture with polymicrobial growth * blood cultures negative * urine electrolytes were prerenal * due worsening renal dysfunction and worsening fluid status, initiated on FOREIGN CORRESPONDENT/dialysis * HD today and continue 3x/week * will need to continue FOREIGN CORRESPONDENT/dialysis on discharge * follow electrolytes, volume status, clearance (2) Stage 3b chronic kidney disease: Code(s): N18.32 - Chronic kidney disease, stage 3b Status: Chronic Assessment and Plan: * baseline creatinine runs ~ 1.9 - 2.5mg/dl * felt to be secondary to diabetes, hypertension, vascular disease, and age based on outpatient evaluation (3) Hypokalemia: Code(s): E87.6 - Hypokalemia Status: Acute Assessment and Plan: * stabilizing * due to poor oral intake and GI losses (diarrhea) * on scheduled and PRN replacement * follow trend (4) COVID-19: Code(s): U07.1 - COVID-19 Status: Acute Assessment and Plan: * tested positive on admission * s/p steroids * supportive care (5) COPD exacerbation: Code(s): J44.1 - Chronic obstructive pulmonary disease with (acute) exacerbation Status: Acute Assessment and Plan: * respiratory status better * continue breathing treatments * supplemental oxygen (6) C. difficile diarrhea: Code(s): A04.72 - Enterocolitis due to Clostridium difficile, not specified as recurrent Status: Acute Assessment and Plan: * on oral vancomycin * patient in isolation (7) Anemia: Code(s): D64.9 - Anemia, unspecified Status: Chronic Assessment and Plan: * related to ROEL, CKD, and acute illness * Epogen with HD * follow H/H (8) Type 2 diabetes mellitus with hyperglycemia, without long-term current use of insulin: Code(s): E11.65 - Type 2 diabetes mellitus with hyperglycemia Status: Acute Assessment and Plan: * follow accuchecks * on SSI and Lantus Will continue to follow. Subjective Date/time seen: 10/19/21 12:32 Tolerating dialysis treatment at the time of my visit (seen on HD at ~ 12:20); otherwise, no other acute issues/events overnight or earlier this AM; still have some loose bowel movements/diarrhea but he feels it has improved in general; no apparent distress voiced. Exam Narrative: General: WD/WN male in NAD Heart: normal S1 and S2; no rub Lungs: coarse breath sounds Abdomen: soft, nontender, nondistended, positive bowel sounds Extremities: no cyanosis or clubbing; trace edema Skin: warm and intact Objective Data Vital Signs Vital Signs: Vital Signs Temp Pulse Resp BP Pulse Ox O2 Del Method 10/19/21 12:30 80 148/91 H 10/19/21 12:00 83 10/19/21 12:10 90 140/89 10/19/21 11:50 78 148/85 H 10/19/21 08:00 81 10/19/21 11:30 77 162/86 H 10/19/21 11:10 75 170/91 H 10/19/21 10:50 75 180/88 H 10/19/21 10:30 74 187/89 H
--- NOTE | 2021-10-19 12:32 | PM.PNNEP ---
Progress Note: A&P Assessment and Plan (1) ROEL (acute kidney injury): Code(s): N17.9 - Acute kidney failure, unspecified Status: Resolved Assessment and Plan: suspect due to ATN from infection (COVID and C. diff colitis) evaluation to date: urine culture with polymicrobial growth blood cultures negative urine electrolytes were prerenal due worsening renal dysfunction and worsening fluid status, initiated on SWITCH MAKER/dialysis HD today and continue 3x/week will need to continue SWITCH MAKER/dialysis on discharge follow electrolytes, volume status, clearance (2) Stage 3b chronic kidney disease: Code(s): N18.32 - Chronic kidney disease, stage 3b Status: Chronic Assessment and Plan: baseline creatinine runs ~ 1.9 - 2.5mg/dl felt to be secondary to diabetes, hypertension, vascular disease, and age based on outpatient evaluation (3) Hypokalemia: Code(s): E87.6 - Hypokalemia Status: Acute Assessment and Plan: stabilizing due to poor oral intake and GI losses (diarrhea) on scheduled and PRN replacement follow trend (4) COVID-19: Code(s): U07.1 - COVID-19 Status: Acute Assessment and Plan: tested positive on admission s/p steroids supportive care (5) COPD exacerbation: Code(s): J44.1 - Chronic obstructive pulmonary disease with (acute) exacerbation Status: Acute Assessment and Plan: respiratory status better continue breathing treatments supplemental oxygen (6) C. difficile diarrhea: Code(s): A04.72 - Enterocolitis due to Clostridium difficile, not specified as recurrent Status: Acute Assessment and Plan: on oral vancomycin patient in isolation (7) Anemia: Code(s): D64.9 - Anemia, unspecified Status: Chronic Assessment and Plan: related to ROEL, CKD, and acute illness Epogen with HD follow H/H (8) Type 2 diabetes mellitus with hyperglycemia, without long-term current use of insulin: Code(s): E11.65 - Type 2 diabetes mellitus with hyperglycemia Status: Acute Assessment and Plan: follow accuchecks on SSI and Lantus Will continue to follow. Subjective Date/time seen: 10/19/21 12:32 Tolerating dialysis treatment at the time of my visit (seen on HD at ~ 12:20); otherwise, no other acute issues/events overnight or earlier this AM; still have some loose bowel movements/diarrhea but he feels it has improved in general; no apparent distress voiced. Exam Narrative: General: WD/WN male in NAD Heart: normal S1 and S2; no rub Lungs: coarse breath sounds Abdomen: soft, nontender, nondistended, positive bowel sounds Extremities: no cyanosis or clubbing; trace edema Skin: warm and intact Objective Data Vital Signs Vital Signs: Vital Signs Temp Pulse Resp BP Pulse Ox O2 Del Method 10/19/21 12:30 80 148/91 H 10/19/21 12:00 83 10/19/21 12:10 90 140/89 10/19/21 11:50 78 148/85 H 10/19/21 08:00 81 10/19/21 11:30 77 162/86 H 10/19/21 11:10 75 170/91 H 10/19/21 10:50 75 180/88 H 10/19/21 10:30 74 187/89 H 10/19/21 08:30 Room Air 10/19/21 10:10 74 168/97 H 10/19/21 09:50 69 187/91 H 10/19/21 09:30 71 180/85 H 10/19/21 09:06 77 159/80 H 10/19/21 08:55 37.1 C 81 18 141/77 H 10/19/21 05:31 36.4 C 85 16 134/59 L 97 10/19/21 03:36 82 14 10/18/21 20:45 70 16 10/19/21 03:26 83 14 10/18/21 20:33 96 Room Air 10/18/21 20:35 72 16 10/19/21 04:00 83 10/19/21 01:11 37.1 C 81 14 157/59 H 96 10/19/21 00:00 73 10/18/21 20:00 37.2 C 72 16 157/56 H 96 10/18/21 20:00 66 10/18/21 16:00 37.1 C 70 18 140/52 L 97 10/18/21 16:00 82 10/18/21 15:40 79 18 10/18/21 15:30 71 18 Intake/Output Intake/Output: Intake & Output
--- NOTE | 2021-10-19 12:41 | PCPTNOTE ---
The patient treatment was not able to be completed this afternoon on 10/19/2021 due to patient out of room for dialysis. Will plan to continue treatment per plan of care.
--- NOTE | 2021-10-19 13:01 | PM.IMPN ---
Progress Note: A&P Assessment and Plan (1) Acute kidney failure: Qualifiers: Acute renal failure type: unspecified Qualified Code(s): N17.9 - Acute kidney failure, unspecified Code(s): N17.9 - Acute kidney failure, unspecified Status: Acute Assessment and Plan: likely to be pre renal azotemia due to unrelenting in diarrhea however patient with multiple factors that might be contributing to renal failure as well fluid resuscitation renal ultrasound unremarkable Jackson catheter placed daily intake and output nephrology consult Suspected due to ATN from infection COVID and C diff colitis As due to worsening renal dysfunction and worsening fluid status initiated on RT/dialysis , baseline creatinine 1.9-2.5 Needs chair time for dialysis schedule outpatient (2) COVID-19: Code(s): U07.1 - COVID-19 Status: Acute Assessment and Plan: patient tested positive for COVID Not a candidate for remdesivir or baricitinib due to acute renal failure Since the course of ceftriaxone and azithromycin for possible pneumonia. received systemic steroids in emergency room continue to monitor supportive care Finished Maradron 10/17/2021 (3) COPD exacerbation: Code(s): J44.1 - Chronic obstructive pulmonary disease with (acute) exacerbation Status: Acute Assessment and Plan: breathing treatments q.4 hours continue oxygen supplementation continue to monitor supportive care (4) Jzthp-th-cuijbeh kidney injury: Qualifiers: Acute renal failure type: unspecified Chronic kidney disease stage: stage 3 (moderate) Chronic kidney disease stage 3 subtype: stage 3b (GFR 30-44) Qualified Code(s): N17.9 - Acute kidney failure, unspecified; N18.32 - Chronic kidney disease, stage 3b Code(s): N17.9 - Acute kidney failure, unspecified; N18.9 - Chronic kidney disease, unspecified Status: Acute Assessment and Plan: see above (5) GERD (gastroesophageal reflux disease): Code(s): K21.9 - Gastro-esophageal reflux disease without esophagitis Status: Acute Assessment and Plan: PPI as needed (6) Acute hypoxemic respiratory failure: Code(s): J96.01 - Acute respiratory failure with hypoxia Status: Acute Assessment and Plan: initially was intubated and placed on ventilator Extubated Per 10/11/2021 continue BiPAP as needed (7) Type 2 diabetes mellitus with hyperglycemia, without long-term current use of insulin: Code(s): E11.65 - Type 2 diabetes mellitus with hyperglycemia Status: Acute Assessment and Plan: holding Januvia, Holding pioglitazone, holding ezetimibe Accu-Cheks AC and HS carb consistent diet (8) C. difficile diarrhea: Code(s): A04.72 - Enterocolitis due to Clostridium difficile, not specified as recurrent Status: Acute Assessment and Plan: patient in isolation started on vancomycin p.o.Started Finished course of vancomycin. Will monitor stool output Had 1 episode of loose watery stool today could be related to food Will monitor for further episode if worsening symptoms will add fidoxamicin Plan DVT prophylaxis on Lovenox. Venous duplex 10/08/2021 showed small amount of right-sided uzuae-egq-fvwj ED PT at the proximal aspect of 1 of the paired posterior tibial vein at the right.With ongoing bleed anticoagulation for this DVT was stopped due to drop in H&H. And had been placed on prophylactic Lovenox since then. We can plan for repeat venous duplex since this is a ppfyv-ihe-frly DVT if no progression might not need full-dose anticoagulation. Anemia with acute on chronic sitting willing dropped to 6.7 on 10/09. Received 1 unit of PRBC transfusion. GI was consulted but no plans for EGD Right shoulder pain and weakness: x-ray with moderate polyarticular osteoarthritis with possible rotator cuff tear Subjective Date/time seen: 10/19/21 13:01 Interv
[2021-10-19 13:08] LABS: Glucose Point of Care 101 mg/dl (65-105)
--- NOTE | 2021-10-19 13:15 | PC.NURSE ---
pt returned to room from dialysis
[2021-10-19 16:32] LABS: Glucose Point of Care 93 mg/dl (65-105)
[2021-10-19 19:36] LABS: Glucose Point of Care 82 mg/dl (65-105)
[2021-10-19] MEDS: ROSUVASTATIN 10 MG TABLET 20 MG PO (19:40)
[2021-10-20] VITALS (19 sets, daily range): BP systolic 115–150; BP diastolic 46–72; PULSE 69–97; RESP 18–28; TEMP 36.4–37.2; O2SAT 96–100
[2021-10-20] MEDS: ALPRAZolam (*CRX) 0.25 MG TABLET PO (00:47)
[2021-10-20 05:31] LABS: Hematocrit 27.6 % (42.0-52.0); Hemoglobin 8.2 g/dL (14.0-18.0); Immature Platelet Fraction Pct 9.2 % (0.9-11.2); Mean Corpuscular HGB Conc 29.7 g/dl (32-36); Mean Corpuscular Hemoglobin 29.7 pg (26-34); Mean Platelet Volume 11.9 fl (7.4-10.4); Platelet Count Result 75 k/mm3 (150-375); Red Blood Count 2.76 M/mm3 (4.6-6.20); White Blood Count 8.7 K/mm3 (4.5-10.0)
[2021-10-20 05:57] LABS: Albumin Level 2.5 g/dL (3.5-5.1); Anion Gap 6 mmol/L (8-16); Blood Urea Nitrogen 13 mg/dL (9-20); Calcium 7.4 mg/dL (8.4-10.2); Carbon Dioxide 29 mmol/L (22-30); Chloride 101 mmol/L (98-107); Estimated CRCL calculation 15 ml/min; Estimated Glomerular Filt Rate 17; Glucose 75 mg/dL (65-110); Magnesium 1.8 mg/dL (1.6-2.3); Phosphorus 2.8 mg/dL (2.5-4.5); Potassium 3.1 mmol/L (3.4-5.0); Sodium 136 mmol/L (137-145)
[2021-10-20 07:45] LABS: Glucose Point of Care 75 mg/dl (65-105)
[2021-10-20] MEDS: POTASSIUM CHLORIDE 20 MEQ TABLET.ER 40 MEQ PO (08:23)
[2021-10-20] MEDS: DONEPEZIL HCL 10 MG TABLET PO (08:23)
[2021-10-20] MEDS: FERROUS SULFATE 324 MG TABLET PO (08:23)
[2021-10-20] MEDS: ASPIRIN 325 MG TABLET FEED TUBE (08:23)
[2021-10-20] MEDS: HYDROcodone/acetaminophen (*CRX) 5-325 MG TABLET 1 TAB PO (08:24)
[2021-10-20] MEDS: PANTOPRAZOLE 40 MG TABLET PO (08:24)
[2021-10-20] MEDS: FLUTICASONE/UMECLIDIN/VILANTER 100-62.5-25 MCG ELLIPTA 1 PUFF INHALATION (09:02)
[2021-10-20 11:38] LABS: Glucose Point of Care 80 mg/dl (65-105)
[2021-10-20] MEDS: POTASSIUM CHLORIDE 20 MEQ TABLET 40 MEQ PO (11:56)
[2021-10-20] MEDS: POTASSIUM CHLORIDE 20 MEQ TABLET PO (11:56)
--- NOTE | 2021-10-20 12:41 | P.PNNP_ITS ---
Progress Note: A&P Assessment and Plan (1) ROEL (acute kidney injury): Code(s): N17.9 - Acute kidney failure, unspecified Status: Resolved Assessment and Plan: * suspect due to ATN from infection (COVID and C. diff colitis) * evaluation to date: * urine culture with polymicrobial growth * blood cultures negative * urine electrolytes were prerenal * due worsening renal dysfunction and worsening fluid status, initiated on INFRASTRUCTURE PROJECT MANAGER/dialysis * HD yesterday and continue 3x/week * will need to continue INFRASTRUCTURE PROJECT MANAGER/dialysis on discharge * follow electrolytes, volume status, clearance (2) Stage 3b chronic kidney disease: Code(s): N18.32 - Chronic kidney disease, stage 3b Status: Chronic Assessment and Plan: * baseline creatinine runs ~ 1.9 - 2.5mg/dl * felt to be secondary to diabetes, hypertension, vascular disease, and age based on outpatient evaluation (3) Hypokalemia: Code(s): E87.6 - Hypokalemia Status: Acute Assessment and Plan: * stabilizing * due to poor oral intake and GI losses (diarrhea) * on scheduled and PRN replacement * follow trend (4) COVID-19: Code(s): U07.1 - COVID-19 Status: Acute Assessment and Plan: * tested positive on admission * s/p steroids * supportive care (5) COPD exacerbation: Code(s): J44.1 - Chronic obstructive pulmonary disease with (acute) exacerbation Status: Acute Assessment and Plan: * respiratory status better * continue breathing treatments * supplemental oxygen (6) C. difficile diarrhea: Code(s): A04.72 - Enterocolitis due to Clostridium difficile, not specified as recurrent Status: Acute Assessment and Plan: * on oral vancomycin * patient in isolation (7) Anemia: Code(s): D64.9 - Anemia, unspecified Status: Chronic Assessment and Plan: * related to ROEL, CKD, and acute illness * Epogen with HD * follow H/H (8) Type 2 diabetes mellitus with hyperglycemia, without long-term current use of insulin: Code(s): E11.65 - Type 2 diabetes mellitus with hyperglycemia Status: Acute Assessment and Plan: * follow accuchecks * on SSI and Lantus Will continue to follow. Subjective Date/time seen: 10/20/21 12:41 Tolerated hemodialysis treatment yesterday without any issues or problems; feels a bit short of breath today but also having some issues with anxiety as well; no other issues/events overnight or earlier this morning; still having diarrh ea/multiple bowel movement at this time. Objective Data Vital Signs Vital Signs: Vital Signs Temp Pulse Resp BP Pulse Ox O2 Del Method 10/20/21 12:00 36.9 C 73 20 115/46 L 99 10/20/21 09:15 97 20 10/20/21 08:00 79 10/20/21 09:03 96 Room Air 10/20/21 09:02 96 20 10/20/21 08:00 37.1 C 75 22 H 144/69 H 98 10/20/21 08:26 20 98 Room Air 10/20/21 04:00 78 10/20/21 04:00 37.2 C 75 20 150/72 H 98 10/20/21 02:10 82 20 10/20/21 02:00 82 20 10/20/21 00:00 79 10/20/21 00:15 83 24 H 135/50 L 98 Room Air 10/20/21 00:00 36.6 C 84 24 H 135/50 L 98 10/19/21 20:00 86 07
--- NOTE | 2021-10-20 12:41 | PM.PNNEP ---
Progress Note: A&P Assessment and Plan (1) ROEL (acute kidney injury): Code(s): N17.9 - Acute kidney failure, unspecified Status: Resolved Assessment and Plan: suspect due to ATN from infection (COVID and C. 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 and continue 3x/week will need to continue LINO[employer]LO[employer] INSTALLER/dialysis on discharge follow electrolytes, volume status, clearance (2) Stage 3b chronic kidney disease: Code(s): N18.32 - Chronic kidney disease, stage 3b Status: Chronic Assessment and Plan: baseline creatinine runs ~ 1.9 - 2.5mg/dl felt to be secondary to diabetes, hypertension, vascular disease, and age based on outpatient evaluation (3) Hypokalemia: Code(s): E87.6 - Hypokalemia Status: Acute Assessment and Plan: stabilizing due to poor oral intake and GI losses (diarrhea) on scheduled and PRN replacement follow trend (4) COVID-19: Code(s): U07.1 - COVID-19 Status: Acute Assessment and Plan: tested positive on admission s/p steroids supportive care (5) COPD exacerbation: Code(s): J44.1 - Chronic obstructive pulmonary disease with (acute) exacerbation Status: Acute Assessment and Plan: respiratory status better continue breathing treatments supplemental oxygen (6) C. difficile diarrhea: Code(s): A04.72 - Enterocolitis due to Clostridium difficile, not specified as recurrent Status: Acute Assessment and Plan: on oral vancomycin patient in isolation (7) Anemia: Code(s): D64.9 - Anemia, unspecified Status: Chronic Assessment and Plan: related to ROEL, CKD, and acute illness Epogen with HD follow H/H (8) Type 2 diabetes mellitus with hyperglycemia, without long-term current use of insulin: Code(s): E11.65 - Type 2 diabetes mellitus with hyperglycemia Status: Acute Assessment and Plan: follow accuchecks on SSI and Lantus Will continue to follow. Subjective Date/time seen: 10/20/21 12:41 Tolerated hemodialysis treatment yesterday without any issues or problems; feels a bit short of breath today but also having some issues with anxiety as well; no other issues/events overnight or earlier this morning; still having diarrhea/multiple bowel movement at this time. Objective Data Vital Signs Vital Signs: Vital Signs Temp Pulse Resp BP Pulse Ox O2 Del Method 10/20/21 12:00 36.9 C 73 20 115/46 L 99 10/20/21 09:15 97 20 10/20/21 08:00 79 10/20/21 09:03 96 Room Air 10/20/21 09:02 96 20 10/20/21 08:00 37.1 C 75 22 H 144/69 H 98 10/20/21 08:26 20 98 Room Air 10/20/21 04:00 78 10/20/21 04:00 37.2 C 75 20 150/72 H 98 10/20/21 02:10 82 20 10/20/21 02:00 82 20 10/20/21 00:00 79 10/20/21 00:15 83 24 H 135/50 L 98 Room Air 10/20/21 00:00 36.6 C 84 24 H 135/50 L 98 10/19/21 20:00 86 10/19/21 23:14 36.8 C 86 17 139/52 L 97 10/19/21 19:30 88 20 10/19/21 19:20 88 20 10/19/21 19:20 88 20 97 Room Air 10/19/21 19:57 37.3 C 84 18 123/72 98 10/19/21 14:00 36.6 C 74 20 125/55 L 95 10/19/21 16:00 84 10/19/21 14:57 83 16 10/19/21 14:45 94 Room Air 10/19/21 14:43 86 16 Intake/Output Intake/Output: Intake & Output 10/17/21 10/18/21 10/19/21 10/20/21 23:59 23:59 23:59 23:59 Intake Total 290 460 500 220 Output Total 3250 100 4000 Balance -2960 360 -3500 220 Meds/Results Medications: Active Medications Generic Name Dose Route Start Last Admin Trade Name Osvaldoq PRN Reason Stop Dose Admin Acetaminophen 500 mg 10/09/21 15:21 Acetaminophen 500 Mg Tablet PO
--- NOTE | 2021-10-20 12:53 | PM.IMPN ---
Progress Note: A&P Assessment and Plan (1) Acute kidney failure: Qualifiers: Acute renal failure type: unspecified Qualified Code(s): N17.9 - Acute kidney failure, unspecified Code(s): N17.9 - Acute kidney failure, unspecified Status: Acute Assessment and Plan: likely to be pre renal azotemia due to unrelenting in diarrhea however patient with multiple factors that might be contributing to renal failure as well fluid resuscitation renal ultrasound unremarkable Jackson catheter placed daily intake and output nephrology consult Suspected due to ATN from infection COVID and C diff colitis As due to worsening renal dysfunction and worsening fluid status initiated on RT/dialysis , baseline creatinine 1.9-2.5 Needs chair time for dialysis schedule outpatient (2) COVID-19: Code(s): U07.1 - COVID-19 Status: Acute Assessment and Plan: patient tested positive for COVID Not a candidate for remdesivir or baricitinib due to acute renal failure Since the course of ceftriaxone and azithromycin for possible pneumonia. received systemic steroids in emergency room continue to monitor supportive care Finished Decadron 10/17/2021 Chest x-ray 10/20/2021 with no acute findings (3) COPD exacerbation: Code(s): J44.1 - Chronic obstructive pulmonary disease with (acute) exacerbation Status: Acute Assessment and Plan: breathing treatments q.4 hours continue oxygen supplementation continue to monitor supportive care (4) Iiqjn-zd-qqenmyo kidney injury: Qualifiers: Acute renal failure type: unspecified Chronic kidney disease stage: stage 3 (moderate) Chronic kidney disease stage 3 subtype: stage 3b (GFR 30-44) Qualified Code(s): N17.9 - Acute kidney failure, unspecified; N18.32 - Chronic kidney disease, stage 3b Code(s): N17.9 - Acute kidney failure, unspecified; N18.9 - Chronic kidney disease, unspecified Status: Acute Assessment and Plan: see above (5) GERD (gastroesophageal reflux disease): Code(s): K21.9 - Gastro-esophageal reflux disease without esophagitis Status: Acute Assessment and Plan: PPI as needed (6) Acute hypoxemic respiratory failure: Code(s): J96.01 - Acute respiratory failure with hypoxia Status: Acute Assessment and Plan: initially was intubated and placed on ventilator Extubated Per 10/11/2021 continue BiPAP as needed (7) Type 2 diabetes mellitus with hyperglycemia, without long-term current use of insulin: Code(s): E11.65 - Type 2 diabetes mellitus with hyperglycemia Status: Acute Assessment and Plan: holding Januvia, Holding pioglitazone, holding ezetimibe Accu-Cheks AC and HS carb consistent diet (8) C. difficile diarrhea: Code(s): A04.72 - Enterocolitis due to Clostridium difficile, not specified as recurrent Status: Acute Assessment and Plan: patient in isolation started on vancomycin p.o.Started Finished course of vancomycin. Will monitor stool output Had 1 episode of loose watery stool today could be related to food Continues to worsen again since off vancomycin Start fidaxomicin 10/20/2021 Plan DVT prophylaxis on Lovenox. Venous duplex 10/08/2021 showed small amount of right-sided qsfrp-meo-eeyq ED PT at the proximal aspect of 1 of the paired posterior tibial vein at the right.With ongoing bleed anticoagulation for this DVT was stopped due to drop in H&H. And had been placed on prophylactic Lovenox since then. We can plan for repeat venous duplex since this is a gbqim-riy-dwlc DVT if no progression might not need full-dose anticoagulation. Anemia with acute on chronic sitting willing dropped to 6.7 on 10/09. Received 1 unit of PRBC transfusion. GI was consulted but no plans for EGD Right shoulder pain and weakness: x-ray with moderate polyarticular osteoarthritis with possible rotator cuff tear Subjec
[2021-10-20] MEDS: FIDAXOMICIN 200 MG TABLET PO ×2 (13:23→21:51)
[2021-10-20 16:33] LABS: Glucose Point of Care 114 mg/dl (65-105)
[2021-10-20] MEDS: ROSUVASTATIN 10 MG TABLET 20 MG PO (21:51)
[2021-10-20 22:06] LABS: Glucose Point of Care 101 mg/dl (65-105)
[2021-10-21] VITALS (19 sets, daily range): BP systolic 130–159; BP diastolic 54–88; PULSE 69–95; RESP 18–24; TEMP 36.8–37.6; O2SAT 97–99
[2021-10-21 05:30] LABS: Basophils Percent Auto 0.1 % (0.2-1.2); Eosinophils Percent Auto 0.4 % (0-4.4); Hematocrit 26.3 % (42.0-52.0); Immature Granulocyte Absolute 0.04 K/mm3 (0.00-0.031); Immature Granulocyte Percent A 0.5 % (0-0.5); Immature Platelet Fraction Pct 9.5 % (0.9-11.2); Lymphocytes Absolute Auto 0.43 K/mm3 (0.9-3.2); Lymphocytes Percent Auto 5.6 % (18.3-44.2); Mean Corpuscular HGB Conc 30.4 g/dl (32-36); Mean Corpuscular Hemoglobin 30.3 pg (26-34); Mean Corpuscular Volume 99.6 fl (80-100); Mean Platelet Volume 11.9 fl (7.4-10.4); Monocytes Absolute Auto 0.4 K/mm3 (0.1-0.6); Monocytes Percent Auto 4.7 % (2.6-8.5); Neutrophils Absolute Auto 6.8 K/mm3 (1.3-6.7); Neutrophils Percent Auto 88.7 % (45.5-73.1); Platelet Count Result 76 k/mm3 (150-375); Red Blood Count 2.64 M/mm3 (4.6-6.20); Red Cell Distribution Width 18.2 % (11.5-14.5); White Blood Count 7.7 K/mm3 (4.5-10.0)
[2021-10-21 06:05] LABS: Alanine Aminotransferase 17 U/L (6-50); Albumin Level 2.5 g/dL (3.5-5.1); Alkaline Phosphatase 94 U/L (38-126); Anion Gap 8 mmol/L (8-16); Aspartate Amino Transferase 28 U/L (17-59); Bilirubin,Total 0.5 mg/dL (0.2-1.3); Blood Urea Nitrogen 22 mg/dL (9-20); Calcium 7.5 mg/dL (8.4-10.2); Carbon Dioxide 24 mmol/L (22-30); Chloride 101 mmol/L (98-107); Estimated CRCL calculation 11 ml/min; Estimated Glomerular Filt Rate 12; Glucose 98 mg/dL (65-110); Potassium 4.4 mmol/L (3.4-5.0); Sodium 133 mmol/L (137-145)
[2021-10-21 07:50] LABS: Glucose Point of Care 110 mg/dl (65-105)
[2021-10-21] MEDS: POTASSIUM CHLORIDE 20 MEQ TABLET.ER 40 MEQ PO (08:25)
[2021-10-21] MEDS: FERROUS SULFATE 324 MG TABLET PO (08:25)
[2021-10-21] MEDS: PANTOPRAZOLE 40 MG TABLET PO (08:25)
[2021-10-21] MEDS: DONEPEZIL HCL 10 MG TABLET PO (08:25)
[2021-10-21] MEDS: FIDAXOMICIN 200 MG TABLET PO ×2 (08:25→20:33)
[2021-10-21] MEDS: ASPIRIN 325 MG TABLET FEED TUBE (08:25)
[2021-10-21] MEDS: INSULIN GLARGINE (*BKC) 100 UNITS/ML 10 UNITS SUB-Q (08:28)
[2021-10-21] MEDS: FLUTICASONE/UMECLIDIN/VILANTER 100-62.5-25 MCG ELLIPTA 1 PUFF INHALATION (09:15)
--- NOTE | 2021-10-21 10:18 | P.PNNP_ITS ---
Progress Note: A&P Assessment and Plan (1) ROEL (acute kidney injury): Code(s): N17.9 - Acute kidney failure, unspecified Status: Resolved Assessment and Plan: * suspect due to ATN from infection (COVID and C. diff colitis) * currently on dialysis. * Urine output is not very high. When Jackson was in it seemed to be around 100cc per day. * Serum creatinine has not dropped at all. * Continue dialysis 3 times a week on Tuesdays and Saturdays. * Likelihood of recovery is still present however not as good as if he had no underlying chronic kidney disease. (2) Stage 3b chronic kidney disease: Code(s): N18.32 - Chronic kidney disease, stage 3b Status: Chronic Assessment and Plan: * baseline creatinine runs ~ 1.9 - 2.5mg/dl * felt to be secondary to diabetes, hypertension, vascular disease, and age based on outpatient evaluation (3) Hypokalemia: Code(s): E87.6 - Hypokalemia Status: Acute Assessment and Plan: * stabilizing * due to poor oral intake and GI losses (diarrhea) * on scheduled and PRN replacement * follow trend (4) COVID-19: Code(s): U07.1 - COVID-19 Status: Acute Assessment and Plan: * tested positive on admission * s/p steroids * No longer on respiratory isolation. The disease time doubt. He has no symptoms currently. (5) COPD exacerbation: Code(s): J44.1 - Chronic obstructive pulmonary disease with (acute) exacerbation Status: Acute Assessment and Plan: * respiratory status better * continue breathing treatments and supplemental oxygen (6) C. difficile diarrhea: Code(s): A04.72 - Enterocolitis due to Clostridium difficile, not specified as recurrent Status: Acute Assessment and Plan: * on oral vancomycin * patient in isolation (7) Anemia: Code(s): D64.9 - Anemia, unspecified Status: Chronic Assessment and Plan: * related to ROEL, CKD, and acute illness * Epogen with HD * follow H/H (8) Type 2 diabetes mellitus with hyperglycemia, without long-term current use of insulin: Code(s): E11.65 - Type 2 diabetes mellitus with hyperglycemia Status: Acute Assessment and Plan: * On Accu-Cheks and sliding-scale insulin per hospitalists. Subjective Date/time seen: 10/21/21 10:18 Interval history: Miky Is feeling okay. No cough or shortness of breath. Every time he eats he has diarrhea. His Jackson catheter is out Review of Systems Cardiovascular: Cardiovascular: Reports no additional cardiovascular complaints Respiratory: Respiratory: Reports no additional respiratory complaints Gastrointestinal: Gastrointestinal: Reports no additional gastrointestinal complaints Genitourinary: Genitourinary: Reports no additional male genitourinary complaints Exam Narrative: WDWN in NAD skin no rash head ncat lungs clear cor reg no rub abd BS+ nontender and soft ext no edema. Objective Data Vital Signs Vital Signs: Vital Signs - 24 hr 10/20/21 12:00 10/20/21 12:00 10/20/21 14:55 Temperature 36.9 C Pulse Rate 73 71 74 Respiratory Rate 20 20 Blood Pressure 115/46 L Pulse Oximetry 99 O
--- NOTE | 2021-10-21 10:18 | PM.PNNEP ---
Progress Note: A&P Assessment and Plan (1) ROEL (acute kidney injury): Code(s): N17.9 - Acute kidney failure, unspecified Status: Resolved Assessment and Plan: suspect due to ATN from infection (COVID and C. diff colitis) currently on dialysis. Urine output is not very high. When Jackson was in it seemed to be around 100cc per day. Serum creatinine has not dropped at all. Continue dialysis 3 times a week on Tuesdays and Saturdays. Likelihood of recovery is still present however not as good as if he had no underlying chronic kidney disease. (2) Stage 3b chronic kidney disease: Code(s): N18.32 - Chronic kidney disease, stage 3b Status: Chronic Assessment and Plan: baseline creatinine runs ~ 1.9 - 2.5mg/dl felt to be secondary to diabetes, hypertension, vascular disease, and age based on outpatient evaluation (3) Hypokalemia: Code(s): E87.6 - Hypokalemia Status: Acute Assessment and Plan: stabilizing due to poor oral intake and GI losses (diarrhea) on scheduled and PRN replacement follow trend (4) COVID-19: Code(s): U07.1 - COVID-19 Status: Acute Assessment and Plan: tested positive on admission s/p steroids No longer on respiratory isolation. The disease time doubt. He has no symptoms currently. (5) COPD exacerbation: Code(s): J44.1 - Chronic obstructive pulmonary disease with (acute) exacerbation Status: Acute Assessment and Plan: respiratory status better continue breathing treatments and supplemental oxygen (6) C. difficile diarrhea: Code(s): A04.72 - Enterocolitis due to Clostridium difficile, not specified as recurrent Status: Acute Assessment and Plan: on oral vancomycin patient in isolation (7) Anemia: Code(s): D64.9 - Anemia, unspecified Status: Chronic Assessment and Plan: related to ROEL, CKD, and acute illness Epogen with HD follow H/H (8) Type 2 diabetes mellitus with hyperglycemia, without long-term current use of insulin: Code(s): E11.65 - Type 2 diabetes mellitus with hyperglycemia Status: Acute Assessment and Plan: On Accu-Cheks and sliding-scale insulin per hospitalists. Subjective Date/time seen: 10/21/21 10:18 Interval history: Miky Is feeling okay. No cough or shortness of breath. Every time he eats he has diarrhea. His Jackson catheter is out Review of Systems Cardiovascular: Cardiovascular: Reports no additional cardiovascular complaints Respiratory: Respiratory: Reports no additional respiratory complaints Gastrointestinal: Gastrointestinal: Reports no additional gastrointestinal complaints Genitourinary: Genitourinary: Reports no additional male genitourinary complaints Exam Narrative: WDWN in NAD skin no rash head ncat lungs clear cor reg no rub abd BS+ nontender and soft ext no edema. Objective Data Vital Signs Vital Signs: Vital Signs - 24 hr 10/20/21 12:00 10/20/21 12:00 10/20/21 14:55 Temperature 36.9 C Pulse Rate 73 71 74 Respiratory Rate 20 20 Blood Pressure 115/46 L Pulse Oximetry 99 Oxygen Delivery 10/20/21 15:02 10/20/21 16:00 10/20/21 16:00 Temperature 37.1 C Pulse Rate 86 69 76 Respiratory Rate 20 22 H Blood Pressure 132/69 Pulse Oximetry 98 Oxygen Delivery 10/20/21 19:32 10/20/21 20:20 10/20/21 20:20 Temperature 36.6 C Pulse Rate 76 80 Respiratory Rate 18 28 H Blood Pressure 126/57 L Pulse Oximetry 100 98 Oxygen Delivery Room Air 10/20/21 20:30 10/20/21 20:30 10/20/21 23:56 Temperature 36.4 C L Pulse Rate 77 81 Respiratory Rate 26 H 22 H Blood Pressure 135/53 L Pulse Oximetry 98 100 Oxygen Delivery 10/21/21 02:02 10/21/21 02:10 10/21/21 03:54 Temperature 37.2 C Pulse Rate 75 78 84 Respiratory Rate 20 20 18 Blood Pressure 131/54 L Pulse Oximetr
--- NOTE | 2021-10-21 10:28 | PCNFU ---
Nutrition Follow-Up Complete: Altered GI function related to motility as evidenced by diarrhea due to c.diff. Improved GI symptoms Goal: PO intake to remain 75% or greater most meals. Pt is not progressing towards goal. Pt current nutrition is Diabetic consistent carbohydrate diet. Last recorded weight is 79.5 kg. Weight has slightly declined likely related to diarrhea. Bowel Motility: + BM Labs Reviewed: Hgb:8.0, Hct:26.3, Alb:2.5, Na:133, GFR:12, BUN:22, Cr:4.6 Meds Noted: Ferrous sulfate, Lantus, Protonix, Crestor, Skin: Macerated Coccyx Additional Notes: Continue with current diabetic consistent carbohydrate diet order. Spoke with MAYRA Rodriguez. Pt has poor intake less than 25%. Recommend add Banatrol Plus TID: 45 kcals, 2 grams protein per packet. Recommend add Ensure Compact TID: 220 kcals, 9 grams protein per bottle. No further questions or concerns. Monitor weight, labs, and intake and follow up in 3 days.
--- NOTE | 2021-10-21 10:51 | PCNSR ---
On 10/21/21, the student, Ekaterina Gupta, provided care and completed [facility] documentation on this patient. I have reviewed the student's documentation and agree with the findings.
[2021-10-21 11:35] LABS: Glucose Point of Care 94 mg/dl (65-105)
--- NOTE | 2021-10-21 15:09 | PM.IMPN ---
Progress Note: A&P Assessment and Plan (1) Acute kidney failure: Qualifiers: Acute renal failure type: unspecified Qualified Code(s): N17.9 - Acute kidney failure, unspecified Code(s): N17.9 - Acute kidney failure, unspecified Status: Acute Assessment and Plan: likely to be pre renal azotemia due to unrelenting in diarrhea however patient with multiple factors that might be contributing to renal failure as well fluid resuscitation renal ultrasound unremarkable Jackson catheter placed daily intake and output nephrology consult Suspected due to ATN from infection COVID and C diff colitis As due to worsening renal dysfunction and worsening fluid status initiated on RT/dialysis , baseline creatinine 1.9-2.5 Needs chair time for dialysis schedule outpatient Discussed with care coordination 10/21/2021 (2) COVID-19: Code(s): U07.1 - COVID-19 Status: Acute Assessment and Plan: patient tested positive for COVID Not a candidate for remdesivir or baricitinib due to acute renal failure Since the course of ceftriaxone and azithromycin for possible pneumonia. received systemic steroids in emergency room continue to monitor supportive care Finished Decadron 10/17/2021 Chest x-ray 10/20/2021 with Improving opacities (3) COPD exacerbation: Code(s): J44.1 - Chronic obstructive pulmonary disease with (acute) exacerbation Status: Acute Assessment and Plan: breathing treatments q.4 hours continue oxygen supplementation continue to monitor supportive care (4) Hkeso-bn-njzjria kidney injury: Qualifiers: Acute renal failure type: unspecified Chronic kidney disease stage: stage 3 (moderate) Chronic kidney disease stage 3 subtype: stage 3b (GFR 30-44) Qualified Code(s): N17.9 - Acute kidney failure, unspecified; N18.32 - Chronic kidney disease, stage 3b Code(s): N17.9 - Acute kidney failure, unspecified; N18.9 - Chronic kidney disease, unspecified Status: Acute Assessment and Plan: see above (5) GERD (gastroesophageal reflux disease): Code(s): K21.9 - Gastro-esophageal reflux disease without esophagitis Status: Acute Assessment and Plan: PPI as needed (6) Acute hypoxemic respiratory failure: Code(s): J96.01 - Acute respiratory failure with hypoxia Status: Acute Assessment and Plan: initially was intubated and placed on ventilator Extubated Per 10/11/2021 continue BiPAP as needed (7) Type 2 diabetes mellitus with hyperglycemia, without long-term current use of insulin: Code(s): E11.65 - Type 2 diabetes mellitus with hyperglycemia Status: Acute Assessment and Plan: holding Januvia, Holding pioglitazone, holding ezetimibe Accu-Cheks AC and HS carb consistent diet (8) C. difficile diarrhea: Code(s): A04.72 - Enterocolitis due to Clostridium difficile, not specified as recurrent Status: Acute Assessment and Plan: patient in isolation started on vancomycin p.o.Started Finished course of vancomycin. Will monitor stool output Had 1 episode of loose watery stool today could be related to food Continues to worsen again since off vancomycin Start fidaxomicin 10/20/2021 10/21/2021 slightly better continue to monitor Plan DVT prophylaxis on Lovenox. Venous duplex 10/08/2021 showed small amount of right-sided ukcfq-qri-zwza ED PT at the proximal aspect of 1 of the paired posterior tibial vein at the right.With ongoing bleed anticoagulation for this DVT was stopped due to drop in H&H. And had been placed on prophylactic Lovenox since then. We can plan for repeat venous duplex since this is a cpdrs-bwv-dvlm DVT if no progression might not need full-dose anticoagulation. Anemia with acute on chronic sitting willing dropped to 6.7 on 10/09. Received 1 unit of PRBC transfusion. GI was consulted but no plans for EGD Right shoulder pain and weakness
[2021-10-21 16:37] LABS: Glucose Point of Care 168 mg/dl (65-105)
[2021-10-21] MEDS: ROSUVASTATIN 10 MG TABLET 20 MG PO (20:32)
[2021-10-22] VITALS (33 sets, daily range): BP systolic 116–154; BP diastolic 55–88; PULSE 69–101; RESP 16–24; TEMP 36.5–37.4; O2SAT 96–99
[2021-10-22 05:58] LABS: Hematocrit 25.8 % (42.0-52.0); Hemoglobin 7.6 g/dL (14.0-18.0); Immature Platelet Fraction Pct 7.9 % (0.9-11.2); Mean Corpuscular HGB Conc 29.5 g/dl (32-36); Mean Corpuscular Hemoglobin 29.3 pg (26-34); Mean Corpuscular Volume 99.6 fl (80-100); Mean Platelet Volume 10.9 fl (7.4-10.4); Platelet Count Result 82 k/mm3 (150-375); Red Blood Count 2.59 M/mm3 (4.6-6.20); Red Cell Distribution Width 17.9 % (11.5-14.5); White Blood Count 5.9 K/mm3 (4.5-10.0)
[2021-10-22 06:13] LABS: Albumin Level 2.5 g/dL (3.5-5.1); Anion Gap 5 mmol/L (8-16); Blood Urea Nitrogen 27 mg/dL (9-20); Calcium 7.4 mg/dL (8.4-10.2); Carbon Dioxide 26 mmol/L (22-30); Chloride 103 mmol/L (98-107); Estimated CRCL calculation 9 ml/min; Estimated Glomerular Filt Rate 9; Glucose 66 mg/dL (65-110); Phosphorus 3.3 mg/dL (2.5-4.5); Potassium 4.1 mmol/L (3.4-5.0); Sodium 134 mmol/L (137-145)
--- NOTE | 2021-10-22 07:38 | P.PNNP_ITS ---
Progress Note: A&P Assessment and Plan (1) ROEL (acute kidney injury): Code(s): N17.9 - Acute kidney failure, unspecified Status: Resolved Assessment and Plan: * suspect due to ATN from infection (COVID and C. diff colitis) * currently on dialysis. * still not much urine output. * Serum creatinine has not dropped at all. * Continue dialysis 3 times a week on Tuesdays and Saturdays. * Likelihood of recovery is still present however not as good as if he had no underlying chronic kidney disease. Will continue to monitor for recovery. (2) Stage 3b chronic kidney disease: Code(s): N18.32 - Chronic kidney disease, stage 3b Status: Chronic Assessment and Plan: * baseline creatinine runs ~ 1.9 - 2.5mg/dl * felt to be secondary to diabetes, hypertension, vascular disease, and age based on outpatient evaluation (3) Hypokalemia: Code(s): E87.6 - Hypokalemia Status: Acute Assessment and Plan: * Potassium is normal today. (4) COVID-19: Code(s): U07.1 - COVID-19 Status: Acute Assessment and Plan: * No symptoms. * Timed out. (5) COPD exacerbation: Code(s): J44.1 - Chronic obstructive pulmonary disease with (acute) exacerbation Status: Acute Assessment and Plan: * respiratory status better * continue breathing treatments and supplemental oxygen (6) C. difficile diarrhea: Code(s): A04.72 - Enterocolitis due to Clostridium difficile, not specified as recurrent Status: Acute Assessment and Plan: * on oral vancomycin * patient in isolation * Still has some diarrhea. He feels like it is better today. (7) Anemia: Code(s): D64.9 - Anemia, unspecified Status: Chronic Assessment and Plan: * related to ROEL, CKD, and acute illness * Epogen with HD * Hemoglobin up and down in the 7s and 8s. (8) Type 2 diabetes mellitus with hyperglycemia, without long-term current use of insulin: Code(s): E11.65 - Type 2 diabetes mellitus with hyperglycemia Status: Acute Assessment and Plan: * On Accu-Cheks and sliding-scale insulin per hospitalists. Subjective Date/time seen: 10/22/21 07:38 Interval history: Patient is alert. Diarrhea seems better. No chest pain or shortness of breath. Due for dialysis today. Exam Narrative: WDWN in NAD skin no rash head ncat lungs clear bilaterally cor reg no rub or gallop abd BS+ nontender and soft ext no edema. Objective Data Vital Signs Vital Signs: Vital Signs - 24 hr 10/21/21 08:20 10/21/21 09:16 10/21/21 09:16 Temperature Pulse Rate 72 Respiratory Rate 20 Blood Pressure Pulse Oximetry 98 Oxygen Delivery Room Air Room Air 10/21/21 08:00 10/21/21 08:28 10/21/21 08:01 Temperature 36.9 C Pulse Rate 82 80 Respiratory Rate 19 20 Blood Pressure 130/56 L Pulse Oximetry 98 98 Oxygen Delivery Room Air 10/21/21 12:04 10/21/21 13:16 10/21/21 12:00 Temperature 37.0 C Pulse Rate 73 80 Respiratory Rate 19 Blood Pressure 130/62 Pulse Oximetry 99
--- NOTE | 2021-10-22 07:38 | PM.PNNEP ---
Progress Note: A&P Assessment and Plan (1) ROEL (acute kidney injury): Code(s): N17.9 - Acute kidney failure, unspecified Status: Resolved Assessment and Plan: suspect due to ATN from infection (COVID and C. diff colitis) currently on dialysis. still not much urine output. Serum creatinine has not dropped at all. Continue dialysis 3 times a week on Tuesdays and Saturdays. Likelihood of recovery is still present however not as good as if he had no underlying chronic kidney disease. Will continue to monitor for recovery. (2) Stage 3b chronic kidney disease: Code(s): N18.32 - Chronic kidney disease, stage 3b Status: Chronic Assessment and Plan: baseline creatinine runs ~ 1.9 - 2.5mg/dl felt to be secondary to diabetes, hypertension, vascular disease, and age based on outpatient evaluation (3) Hypokalemia: Code(s): E87.6 - Hypokalemia Status: Acute Assessment and Plan: Potassium is normal today. (4) COVID-19: Code(s): U07.1 - COVID-19 Status: Acute Assessment and Plan: No symptoms. Timed out. (5) COPD exacerbation: Code(s): J44.1 - Chronic obstructive pulmonary disease with (acute) exacerbation Status: Acute Assessment and Plan: respiratory status better continue breathing treatments and supplemental oxygen (6) C. difficile diarrhea: Code(s): A04.72 - Enterocolitis due to Clostridium difficile, not specified as recurrent Status: Acute Assessment and Plan: on oral vancomycin patient in isolation Still has some diarrhea. He feels like it is better today. (7) Anemia: Code(s): D64.9 - Anemia, unspecified Status: Chronic Assessment and Plan: related to ROEL, CKD, and acute illness Epogen with HD Hemoglobin up and down in the 7s and 8s. (8) Type 2 diabetes mellitus with hyperglycemia, without long-term current use of insulin: Code(s): E11.65 - Type 2 diabetes mellitus with hyperglycemia Status: Acute Assessment and Plan: On Accu-Cheks and sliding-scale insulin per hospitalists. Subjective Date/time seen: 10/22/21 07:38 Interval history: Patient is alert. Diarrhea seems better. No chest pain or shortness of breath. Due for dialysis today. Exam Narrative: WDWN in NAD skin no rash head ncat lungs clear bilaterally cor reg no rub or gallop abd BS+ nontender and soft ext no edema. Objective Data Vital Signs Vital Signs: Vital Signs - 24 hr 10/21/21 08:20 10/21/21 09:16 10/21/21 09:16 Temperature Pulse Rate 72 Respiratory Rate 20 Blood Pressure Pulse Oximetry 98 Oxygen Delivery Room Air Room Air 10/21/21 08:00 10/21/21 08:28 10/21/21 08:01 Temperature 36.9 C Pulse Rate 82 80 Respiratory Rate 19 20 Blood Pressure 130/56 L Pulse Oximetry 98 98 Oxygen Delivery Room Air 10/21/21 12:04 10/21/21 13:16 10/21/21 12:00 Temperature 37.0 C Pulse Rate 73 80 Respiratory Rate 19 Blood Pressure 130/62 Pulse Oximetry 99 Oxygen Delivery Room Air 10/21/21 09:30 10/21/21 14:35 10/21/21 14:45 Temperature Pulse Rate 76 78 77 Respiratory Rate 20 20 20 Blood Pressure Pulse Oximetry Oxygen Delivery 10/21/21 16:00 10/21/21 16:00 10/21/21 19:45 Temperature 36.9 C 36.8 C Pulse Rate 78 69 75 Respiratory Rate 18 24 H Blood Pressure 132/58 L 159/69 H Pulse Oximetry 99 99 Oxygen Delivery 10/21/21 20:00 10/21/21 20:00 10/21/21 20:00 Temperature Pulse Rate 74 74 Respiratory Rate 22 H Blood Pressure Pulse Oximetry 97 Oxygen Delivery Room Air 10/21/21 20:10 10/21/21 23:45 10/22/21 02:00 Temperature 37.6 C Pulse Rate 75 95 89 Respiratory Rate 20 24 H 22 H Blood Pressure 149/88 H Pulse Oximetry 97 Oxygen Delivery 10/22/21 02:10 10/22/21 03:37 10/22/21 00:00 Temperature 37.4 C
[2021-10-22 07:47] LABS: Glucose Point of Care 67 mg/dl (65-105)
[2021-10-22 08:18] LABS: Glucose Point of Care 100 mg/dl (65-105)
[2021-10-22] MEDS: FERROUS SULFATE 324 MG TABLET PO (08:35)
[2021-10-22] MEDS: FIDAXOMICIN 200 MG TABLET PO ×2 (08:35→20:28)
[2021-10-22] MEDS: ASPIRIN 325 MG TABLET FEED TUBE (08:35)
[2021-10-22] MEDS: DONEPEZIL HCL 10 MG TABLET PO (08:35)
[2021-10-22] MEDS: PANTOPRAZOLE 40 MG TABLET PO (08:36)
[2021-10-22] MEDS: FLUTICASONE/UMECLIDIN/VILANTER 100-62.5-25 MCG ELLIPTA 1 PUFF INHALATION (08:39)
[2021-10-22 11:44] LABS: Glucose Point of Care 112 mg/dl (65-105)
--- NOTE | 2021-10-22 11:51 | PC.NURSE ---
PT to dialysis via bed, report given to Ekaterina NUNEZ
[2021-10-22] MEDS: EPOETIN ALFA 10,000 UNITS/ML VIAL 10000 UNITS IV PUSH (11:53)
[2021-10-22] MEDS: HEPARIN SODIUM 1,000 UNITS/ML VIAL 5000 UNITS (11:54)
--- NOTE | 2021-10-22 13:05 | PM.IMPN ---
Progress Note: A&P Assessment and Plan (1) Acute kidney failure: Qualifiers: Acute renal failure type: unspecified Qualified Code(s): N17.9 - Acute kidney failure, unspecified Code(s): N17.9 - Acute kidney failure, unspecified Status: Acute Assessment and Plan: likely to be pre renal azotemia due to unrelenting in diarrhea however patient with multiple factors that might be contributing to renal failure as well fluid resuscitation renal ultrasound unremarkable Jackson catheter placed daily intake and output nephrology consult Suspected due to ATN from infection COVID and C diff colitis As due to worsening renal dysfunction and worsening fluid status initiated on RT/dialysis , baseline creatinine 1.9-2.5 dialysis schedule outpatient at August revealed to be a starting this Thursday. Discussed with Nephrology wants to dialyze Thursday tomorrow and then to start dialysis on Thursday Discussed with care coordination 10/21/2021 and 10/22/2021 (2) COVID-19: Code(s): U07.1 - COVID-19 Status: Acute Assessment and Plan: patient tested positive for COVID Not a candidate for remdesivir or baricitinib due to acute renal failure Since the course of ceftriaxone and azithromycin for possible pneumonia. received systemic steroids in emergency room continue to monitor supportive care Finished Decadron 10/17/2021 Chest x-ray 10/20/2021 with Improving opacities (3) COPD exacerbation: Code(s): J44.1 - Chronic obstructive pulmonary disease with (acute) exacerbation Status: Acute Assessment and Plan: breathing treatments q.4 hours continue oxygen supplementation continue to monitor supportive care (4) Bykld-ub-xmcalgw kidney injury: Qualifiers: Acute renal failure type: unspecified Chronic kidney disease stage: stage 3 (moderate) Chronic kidney disease stage 3 subtype: stage 3b (GFR 30-44) Qualified Code(s): N17.9 - Acute kidney failure, unspecified; N18.32 - Chronic kidney disease, stage 3b Code(s): N17.9 - Acute kidney failure, unspecified; N18.9 - Chronic kidney disease, unspecified Status: Acute Assessment and Plan: see above (5) GERD (gastroesophageal reflux disease): Code(s): K21.9 - Gastro-esophageal reflux disease without esophagitis Status: Acute Assessment and Plan: PPI as needed (6) Acute hypoxemic respiratory failure: Code(s): J96.01 - Acute respiratory failure with hypoxia Status: Acute Assessment and Plan: initially was intubated and placed on ventilator Extubated Per 10/11/2021 continue BiPAP as needed (7) Type 2 diabetes mellitus with hyperglycemia, without long-term current use of insulin: Code(s): E11.65 - Type 2 diabetes mellitus with hyperglycemia Status: Acute Assessment and Plan: holding Januvia, Holding pioglitazone, holding ezetimibe Accu-Cheks AC and HS carb consistent diet (8) C. difficile diarrhea: Code(s): A04.72 - Enterocolitis due to Clostridium difficile, not specified as recurrent Status: Acute Assessment and Plan: patient in isolation started on vancomycin p.o.Started Finished course of vancomycin. Will monitor stool output Had 1 episode of loose watery stool today could be related to food Continues to worsen again since off vancomycin Start fidaxomicin 10/20/2021 10/21/2021 slightly better continue to monitor Plan DVT prophylaxis on Lovenox. Venous duplex 10/08/2021 showed small amount of right-sided tryjt-byd-rcwq ED PT at the proximal aspect of 1 of the paired posterior tibial vein at the right.With ongoing bleed anticoagulation for this DVT was stopped due to drop in H&H. And had been placed on prophylactic Lovenox since then. We can plan for repeat venous duplex since this is a pzgni-tfx-suqu DVT if no progression might not need full-dose anticoagulation. Anemia with acute on chronic sitting
[2021-10-22 16:21] LABS: Glucose Point of Care 81 mg/dl (65-105)
[2021-10-22] MEDS: HYDROcodone/acetaminophen (*CRX) 5-325 MG TABLET 1 TAB PO (16:25)
[2021-10-22 20:26] LABS: Glucose Point of Care 112 mg/dl (65-105)
[2021-10-22] MEDS: ROSUVASTATIN 10 MG TABLET 20 MG PO (20:28)
[2021-10-23] VITALS (35 sets, daily range): BP systolic 99–132; BP diastolic 36–80; PULSE 73–98; RESP 14–20; TEMP 36.5–37.1; O2SAT 91–100
[2021-10-23 06:28] LABS: Basophils Percent Auto 0.2 % (0.2-1.2); Eosinophils Percent Auto 0.9 % (0-4.4); Hematocrit 25.6 % (42.0-52.0); Hemoglobin 7.9 g/dL (14.0-18.0); Immature Granulocyte Absolute 0.02 K/mm3 (0.00-0.031); Immature Granulocyte Percent A 0.4 % (0-0.5); Immature Platelet Fraction Pct 8.9 % (0.9-11.2); Lymphocytes Absolute Auto 0.42 K/mm3 (0.9-3.2); Lymphocytes Percent Auto 9.4 % (18.3-44.2); Mean Corpuscular HGB Conc 30.9 g/dl (32-36); Mean Corpuscular Volume 97.3 fl (80-100); Mean Platelet Volume 11.8 fl (7.4-10.4); Monocytes Absolute Auto 0.3 K/mm3 (0.1-0.6); Monocytes Percent Auto 7.2 % (2.6-8.5); Neutrophils Absolute Auto 3.7 K/mm3 (1.3-6.7); Neutrophils Percent Auto 81.9 % (45.5-73.1); Platelet Count Result 72 k/mm3 (150-375); Red Blood Count 2.63 M/mm3 (4.6-6.20); Red Cell Distribution Width 17.8 % (11.5-14.5); White Blood Count 4.5 K/mm3 (4.5-10.0)
[2021-10-23 06:36] LABS: Alanine Aminotransferase 16 U/L (6-50); Albumin Level 2.4 g/dL (3.5-5.1); Alkaline Phosphatase 116 U/L (38-126); Anion Gap 5 mmol/L (8-16); Aspartate Amino Transferase 23 U/L (17-59); Bilirubin,Total 0.6 mg/dL (0.2-1.3); Blood Urea Nitrogen 10 mg/dL (9-20); Calcium 7.5 mg/dL (8.4-10.2); Carbon Dioxide 33 mmol/L (22-30); Chloride 97 mmol/L (98-107); Estimated CRCL calculation 16 ml/min; Estimated Glomerular Filt Rate 19; Glucose 115 mg/dL (65-110); Magnesium 1.7 mg/dL (1.6-2.3); Phosphorus 2.6 mg/dL (2.5-4.5); Potassium 3.1 mmol/L (3.4-5.0); Sodium 135 mmol/L (137-145)
[2021-10-23 07:42] LABS: Glucose Point of Care 153 mg/dl (65-105)
[2021-10-23] MEDS: ASPIRIN 325 MG TABLET FEED TUBE (07:48)
[2021-10-23] MEDS: PANTOPRAZOLE 40 MG TABLET PO (07:48)
[2021-10-23] MEDS: FERROUS SULFATE 324 MG TABLET PO (07:48)
[2021-10-23] MEDS: FIDAXOMICIN 200 MG TABLET PO ×2 (07:49→21:02)
[2021-10-23] MEDS: POTASSIUM CHLORIDE 20 MEQ PACKET (FOR LIQUID) 40 MEQ PO (07:49)
[2021-10-23] MEDS: DONEPEZIL HCL 10 MG TABLET PO (07:49)
[2021-10-23] MEDS: INSULIN GLARGINE (*BKC) 100 UNITS/ML 10 UNITS SUB-Q (07:54)
--- NOTE | 2021-10-23 07:54 | P.PNNP_ITS ---
Progress Note: A&P Assessment and Plan (1) ROEL (acute kidney injury): Code(s): N17.9 - Acute kidney failure, unspecified Status: Resolved Assessment and Plan: * suspect due to ATN from infection (COVID and C. diff colitis) * currently on dialysis. * He had underlying CKD. Hopefully he will recover but active C diff may delay recovery of kidney function. * Okay for discharge from the kidney standpoint. (2) Stage 3b chronic kidney disease: Code(s): N18.32 - Chronic kidney disease, stage 3b Status: Chronic Assessment and Plan: * baseline creatinine runs ~ 1.9 - 2.5mg/dl * felt to be secondary to diabetes, hypertension, vascular disease, and age based on outpatient evaluation (3) Hypokalemia: Code(s): E87.6 - Hypokalemia Status: Acute Assessment and Plan: * Potassium is low. Will do dialysis on a 4K. (4) COVID-19: Code(s): U07.1 - COVID-19 Status: Acute Assessment and Plan: * No symptoms. * Timed out. (5) COPD exacerbation: Code(s): J44.1 - Chronic obstructive pulmonary disease with (acute) exacerbation Status: Acute Assessment and Plan: * respiratory status better * Comfortable lying flat in bed. (6) C. difficile diarrhea: Code(s): A04.72 - Enterocolitis due to Clostridium difficile, not specified as recurrent Status: Acute Assessment and Plan: * on oral vancomycin * patient in isolation * Still has some diarrhea, especially postprandial. (7) Anemia: Code(s): D64.9 - Anemia, unspecified Status: Chronic Assessment and Plan: * related to ROEL, CKD, and acute illness * Epogen with HD * Hemoglobin up and down in the 7s and 8s. Will increase Epogen dose. (8) Type 2 diabetes mellitus with hyperglycemia, without long-term current use of insulin: Code(s): E11.65 - Type 2 diabetes mellitus with hyperglycemia Status: Acute Assessment and Plan: * On Accu-Cheks and sliding-scale insulin per hospitalists. Subjective Date/time seen: 10/23/21 07:54 Interval history: Patient is alert. Diarrhea seems better but still some present, asher after food. No chest pain or shortness of breath. Due for dialysis today. Does get some on a Thursday schedule. [facility] could not start dialysis today so he was kept overnight and we will dialyze today and he can start at [facility] on Thursday. Exam Narrative: WDWN in NAD skin no rash or subQ nodules head ncat lungs clear to auscultation cor reg no rub or gallop abd BS+ nontender and soft ext no edema or cyanosis Objective Data Vital Signs Vital Signs: Vital Signs - 24 hr 10/22/21 08:00 10/22/21 08:45 10/22/21 09:02 Temperature Pulse Rate 82 76 80 Respiratory Rate 20 20 Blood Pressure Pulse Oximetry Oxygen Delivery 10/22/21 09:03 10/22/21 08:00 10/22/21 10:05 Temperature 37.1 C Pulse Rate 84 Respiratory Rate 18 Blood Pressure 128/58 L Pulse Oximetry 97 99 96 Oxygen Delivery Room Air Room Air 10/22/21 11:46 10/22/21 12:20 10/22/21 11:35 Temperature 36.9 C Pulse Rate 83 69 82
--- NOTE | 2021-10-23 07:54 | PM.PNNEP ---
Progress Note: A&P Assessment and Plan (1) ROEL (acute kidney injury): Code(s): N17.9 - Acute kidney failure, unspecified Status: Resolved Assessment and Plan: suspect due to ATN from infection (COVID and C. diff colitis) currently on dialysis. He had underlying CKD. Hopefully he will recover but active C diff may delay recovery of kidney function. Okay for discharge from the kidney standpoint. (2) Stage 3b chronic kidney disease: Code(s): N18.32 - Chronic kidney disease, stage 3b Status: Chronic Assessment and Plan: baseline creatinine runs ~ 1.9 - 2.5mg/dl felt to be secondary to diabetes, hypertension, vascular disease, and age based on outpatient evaluation (3) Hypokalemia: Code(s): E87.6 - Hypokalemia Status: Acute Assessment and Plan: Potassium is low. Will do dialysis on a 4K. (4) COVID-19: Code(s): U07.1 - COVID-19 Status: Acute Assessment and Plan: No symptoms. Timed out. (5) COPD exacerbation: Code(s): J44.1 - Chronic obstructive pulmonary disease with (acute) exacerbation Status: Acute Assessment and Plan: respiratory status better Comfortable lying flat in bed. (6) C. difficile diarrhea: Code(s): A04.72 - Enterocolitis due to Clostridium difficile, not specified as recurrent Status: Acute Assessment and Plan: on oral vancomycin patient in isolation Still has some diarrhea, especially postprandial. (7) Anemia: Code(s): D64.9 - Anemia, unspecified Status: Chronic Assessment and Plan: related to ROEL, CKD, and acute illness Epogen with HD Hemoglobin up and down in the 7s and 8s. Will increase Epogen dose. (8) Type 2 diabetes mellitus with hyperglycemia, without long-term current use of insulin: Code(s): E11.65 - Type 2 diabetes mellitus with hyperglycemia Status: Acute Assessment and Plan: On Accu-Cheks and sliding-scale insulin per hospitalists. Subjective Date/time seen: 10/23/21 07:54 Interval history: Patient is alert. Diarrhea seems better but still some present, asher after food. No chest pain or shortness of breath. Due for dialysis today. Does get some on a Thursday schedule. [facility] could not start dialysis today so he was kept overnight and we will dialyze today and he can start at [facility] on Thursday. Exam Narrative: WDWN in NAD skin no rash or subQ nodules head ncat lungs clear to auscultation cor reg no rub or gallop abd BS+ nontender and soft ext no edema or cyanosis Objective Data Vital Signs Vital Signs: Vital Signs - 24 hr 10/22/21 08:00 10/22/21 08:45 10/22/21 09:02 Temperature Pulse Rate 82 76 80 Respiratory Rate 20 20 Blood Pressure Pulse Oximetry Oxygen Delivery 10/22/21 09:03 10/22/21 08:00 10/22/21 10:05 Temperature 37.1 C Pulse Rate 84 Respiratory Rate 18 Blood Pressure 128/58 L Pulse Oximetry 97 99 96 Oxygen Delivery Room Air Room Air 10/22/21 11:46 10/22/21 12:20 10/22/21 11:35 Temperature 36.9 C Pulse Rate 83 69 82 Respiratory Rate 16 Blood Pressure 141/67 H 132/65 138/64 Pulse Oximetry Oxygen Delivery 10/22/21 12:40 10/22/21 13:20 10/22/21 13:40 Temperature Pulse Rate 74 73 76 Respiratory Rate Blood Pressure 140/68 135/65 140/76 Pulse Oximetry Oxygen Delivery 10/22/21 14:00 10/22/21 14:20 10/22/21 14:40 Temperature Pulse Rate 76 74 73 Respiratory Rate Blood Pressure 149/74 H 151/69 H 131/84 Pulse Oximetry Oxygen Delivery 10/22/21 15:00 10/22/21 15:19 10/22/21 15:34 Temperature 36.5 C Pulse Rate 80 86 76 Respiratory Rate 16 Blood Pressure 123/68 143/88 H 129/72 Pulse Oximetry Oxygen Delivery 10/22/21 12:00 10/22/21 13:00 10/22/21 16:28 Temperature Pulse Rate 73 76 82 Respiratory Rate 20 Blood Pressure 116/58 L 154
--- NOTE | 2021-10-23 08:47 | PCPTNOTE ---
The patient treatment was not able to be completed on 10/23/2021 due to patient out of room for dialysis. Will plan to continue treatment per plan of care.
--- NOTE | 2021-10-23 08:55 | PCOTNOTE ---
Patient in dialysis. Will continue OT per plan of care.
--- NOTE | 2021-10-23 11:29 | PM.IMPN ---
Progress Note: A&P Assessment and Plan (1) Acute kidney failure: Qualifiers: Acute renal failure type: unspecified Qualified Code(s): N17.9 - Acute kidney failure, unspecified Code(s): N17.9 - Acute kidney failure, unspecified Status: Acute Assessment and Plan: 10/23: Hospital day 17, was admitted October 06, 2021, appreciate nephrology consultation, due to severe kidney injury, patient started on dialysis, Nephrology thinks patient still has a chance of recovering renal function, however it is slim, received dialysis this morning (2) COVID-19: Code(s): U07.1 - COVID-19 Status: Acute Assessment and Plan: patient tested positive for COVID Not a candidate for remdesivir or baricitinib due to acute renal failure Since the course of ceftriaxone and azithromycin for possible pneumonia. received systemic steroids in emergency room continue to monitor supportive care Finished Decadron 10/17/2021 Chest x-ray 10/20/2021 with Improving opacities (3) COPD exacerbation: Code(s): J44.1 - Chronic obstructive pulmonary disease with (acute) exacerbation Status: Acute Assessment and Plan: resolved, at baseline (4) Yuhzn-ko-pmrbpeg kidney injury: Qualifiers: Acute renal failure type: unspecified Chronic kidney disease stage: stage 3 (moderate) Chronic kidney disease stage 3 subtype: stage 3b (GFR 30-44) Qualified Code(s): N17.9 - Acute kidney failure, unspecified; N18.32 - Chronic kidney disease, stage 3b Code(s): N17.9 - Acute kidney failure, unspecified; N18.9 - Chronic kidney disease, unspecified Status: Acute Assessment and Plan: see above (5) GERD (gastroesophageal reflux disease): Code(s): K21.9 - Gastro-esophageal reflux disease without esophagitis Status: Acute Assessment and Plan: PPI as needed (6) Acute hypoxemic respiratory failure: Code(s): J96.01 - Acute respiratory failure with hypoxia Status: Acute Assessment and Plan: initially was intubated and placed on ventilator Extubated Per 10/11/2021 continue BiPAP as needed 10/23: Stable on room air, check ApneaLink to confirm no oxygen needed overnight (7) Type 2 diabetes mellitus with hyperglycemia, without long-term current use of insulin: Code(s): E11.65 - Type 2 diabetes mellitus with hyperglycemia Status: Acute Assessment and Plan: holding Januvia, Holding pioglitazone, holding ezetimibe Accu-Cheks AC and HS carb consistent diet (8) C. difficile diarrhea: Code(s): A04.72 - Enterocolitis due to Clostridium difficile, not specified as recurrent Status: Acute Assessment and Plan: patient in isolation started on vancomycin p.o.Started Finished course of vancomycin. Will monitor stool output Had 1 episode of loose watery stool today could be related to food Continues to worsen again since off vancomycin Start fidaxomicin 10/20/2021 10/21/2021 slightly better continue to monitor 10/23: Appears resolved, continue fidaxomicin Plan DVT prophylaxis on Lovenox. Venous duplex 10/08/2021 showed small amount of right-sided fkezw-lfo-wmxv ED PT at the proximal aspect of 1 of the paired posterior tibial vein at the right.With ongoing bleed anticoagulation for this DVT was stopped due to drop in H&H. And had been placed on prophylactic Lovenox since then. We can plan for repeat venous duplex since this is a htblb-ctk-odnc DVT if no progression might not need full-dose anticoagulation. Anemia with acute on chronic sitting willing dropped to 6.7 on 10/09. Received 1 unit of PRBC transfusion. 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
[2021-10-23] MEDS: EPOETIN ALFA-EPBX 20,000 UNITS/ML VIAL 20000 UNITS IV PUSH (11:35)
[2021-10-23] MEDS: HEPARIN SODIUM 1,000 UNITS/ML VIAL 7000 UNITS (11:35)
[2021-10-23 12:37] LABS: Glucose Point of Care 94 mg/dl (65-105)
--- NOTE | 2021-10-23 13:22 | PCOTNOTE ---
Attempted to see patient post dialysis. Patient refused, reported feeling frustrated with d/c planning. Attempted to console patient, patient still frustrated. Notified BOBTAILER and RN. Asked BOBTAILER to sit with patient as patient is on Cdiff isolation and his is physically unable to come to the hospital in order to comfort him. Patient not seen for OT this date.
[2021-10-23 16:31] LABS: Glucose Point of Care 184 mg/dl (65-105)
[2021-10-23] MEDS: HYDROcodone/acetaminophen (*CRX) 5-325 MG TABLET 1 TAB PO (21:02)
[2021-10-23] MEDS: ROSUVASTATIN 10 MG TABLET 20 MG PO (21:03)
[2021-10-24] VITALS (13 sets, daily range): BP systolic 77–130; BP diastolic 33–60; PULSE 71–90; RESP 18–24; TEMP 36.2–36.6; O2SAT 92–99
[2021-10-24 01:44] LABS: Glucose Point of Care 120 mg/dl (65-105)
[2021-10-24 07:37] LABS: Glucose Point of Care 122 mg/dl (65-105)
[2021-10-24] MEDS: INSULIN GLARGINE (*BKC) 100 UNITS/ML 10 UNITS SUB-Q (08:04)
[2021-10-24] MEDS: DONEPEZIL HCL 10 MG TABLET PO (08:06)
[2021-10-24] MEDS: ASPIRIN 325 MG TABLET FEED TUBE (08:06)
[2021-10-24] MEDS: FIDAXOMICIN 200 MG TABLET PO (08:06)
[2021-10-24] MEDS: FERROUS SULFATE 324 MG TABLET PO (08:06)
[2021-10-24] MEDS: PANTOPRAZOLE 40 MG TABLET PO (08:06)
[2021-10-24] MEDS: POTASSIUM CHLORIDE 20 MEQ PACKET (FOR LIQUID) 40 MEQ PO (08:07)
[2021-10-24 08:40] LABS: Albumin Level 2.5 g/dL (3.5-5.1); Anion Gap 4 mmol/L (8-16); Blood Urea Nitrogen 8 mg/dL (9-20); Calcium 7.5 mg/dL (8.4-10.2); Carbon Dioxide 36 mmol/L (22-30); Chloride 99 mmol/L (98-107); Estimated CRCL calculation 19 ml/min; Estimated Glomerular Filt Rate 23; Glucose 111 mg/dL (65-110); Phosphorus 2.2 mg/dL (2.5-4.5); Potassium 3.9 mmol/L (3.4-5.0); Sodium 139 mmol/L (137-145)
[2021-10-24] MEDS: FLUTICASONE/UMECLIDIN/VILANTER 100-62.5-25 MCG ELLIPTA 1 PUFF INHALATION (08:40)
--- NOTE | 2021-10-24 10:31 | P.PNIM_ITS ---
Progress Note: A&P Assessment and Plan (1) Acute kidney failure: Qualifiers: Acute renal failure type: unspecified Qualified Code(s): N17.9 - Acute kidney failure, unspecified Code(s): N17.9 - Acute kidney failure, unspecified Status: Acute Assessment and Plan: 10/23: Hospital day 17, was admitted October 06, 2021, appreciate nephrology consultation, due to severe kidney injury, patient started on dialysis, Nephrology thinks patient still has a chance of recovering renal function, however it is slim, received dialysis this morning (2) COVID-19: Code(s): U07.1 - COVID-19 Status: Acute Assessment and Plan: patient tested positive for COVID Not a candidate for remdesivir or baricitinib due to acute renal failure Since the course of ceftriaxone and azithromycin for possible pneumonia. received systemic steroids in emergency room continue to monitor supportive care Finished Decadron 10/17/2021 Chest x-ray 10/20/2021 with Improving opacities (3) COPD exacerbation: Code(s): J44.1 - Chronic obstructive pulmonary disease with (acute) exacerbation Status: Acute Assessment and Plan: resolved, at baseline (4) Ziwwq-qf-pvwcrfv kidney injury: Qualifiers: Acute renal failure type: unspecified Chronic kidney disease stage: stage 3 (moderate) Chronic kidney disease stage 3 subtype: stage 3b (GFR 30-44) Qualified Code(s): N17.9 - Acute kidney failure, unspecified; N18.32 - Chronic kidney disease, stage 3b Code(s): N17.9 - Acute kidney failure, unspecified; N18.9 - Chronic kidney disease, unspecified Status: Acute Assessment and Plan: see above (5) GERD (gastroesophageal reflux disease): Code(s): K21.9 - Gastro-esophageal reflux disease without esophagitis Status: Acute Assessment and Plan: PPI as needed (6) Acute hypoxemic respiratory failure: Code(s): J96.01 - Acute respiratory failure with hypoxia Status: Acute Assessment and Plan: initially was intubated and placed on ventilator Extubated Per 10/11/2021 continue BiPAP as needed 10/23: Stable on room air, check ApneaLink to confirm no oxygen needed overnight (7) Type 2 diabetes mellitus with hyperglycemia, without long-term current use of insulin: Code(s): E11.65 - Type 2 diabetes mellitus with hyperglycemia Status: Acute Assessment and Plan: holding Januvia, Holding pioglitazone, holding ezetimibe Accu-Cheks AC and HS carb consistent diet (8) C. difficile diarrhea: Code(s): A04.72 - Enterocolitis due to Clostridium difficile, not specified as recurrent Status: Acute Assessment and Plan: patient in isolation started on vancomycin p.o.Started Finished course of vancomycin. Will monitor stool output Had 1 episode of loose watery stool today could be related to food Continues to worsen again since off vancomycin Start fidaxomicin 10/20/2021 10/21/2021 slightly better continue to monitor 10/23: Appears resolved, continue fidaxomicin Plan DVT prophylaxis on Lovenox. Venous duplex 10/08/2021 showed small amount of right-sided ydlgo-wlk-nvmn ED PT at the proximal aspect of 1 of the paired posterior tibial vein at the right.With ongoing bleed anticoagulation for this DVT was stopped due to drop in H&H. And had been placed on prophylactic Lovenox since then. We can plan for repeat venous duplex since this is a iigvp-cca-pzui DVT if no progression might not need full-dose anticoagulation. Anemia with acute on chronic sitting willing
[2021-10-24 11:41] LABS: Glucose Point of Care 166 mg/dl (65-105)
[2021-10-24] MEDS: MIDODRINE HCL 2.5 MG TABLET 5 MG PO (12:01)
--- NOTE | 2021-10-24 12:08 | PCNFU ---
Nutrition Follow-Up Complete: Altered GI function related to motility as evicenced by diarrhea due to c.diff. Improved GI symptoms Goal: PO intake to remain 75% or greater most meals. Pt is not progressing towards goal. Pt current nutrition is diabetic consistent carbohydrate diet. Last recorded weight is 69.6 kg. Weight change due to pt starting dialysis. Bowel Motility: + BM 10/24 Labs Reviewed: Alb:2.5, GFR:23, BUN:8, Cr:2.7, Glu:111 Meds Noted: Ferrous sulfate, Lantus, Protonix, Crestor, Lovenox, Aricept Skin: Bilateral Groin Maceration Additional Notes: Agree with current diet order. Pt receives Banatrol TID: 45 kcals, 2 grams protein per packet. Nurse said he is refusing meals and will only drink orange juice and coffee. He does not like applesauce so they are going to try the Banatrol in orange juice and yogurt to see if he'll eat it. Recommend pt no longer receives Ensure Compact because he does not drink them. No further question or concerns. Monitor intake, weight, and labs and follow up in 5 days.
--- NOTE | 2021-10-24 13:43 | PCNSR ---
On 10/24/21, the student, Ekaterina Gupta, provided care and completed [facility] documentation on this patient. I have reviewed the student's documentation and agree with the findings.
--- NOTE | 2021-10-24 14:47 | PM.DS ---
DS: Discharge Diagnosis Discharge Diagnosis (1) Acute kidney failure: Qualifiers: Acute renal failure type: unspecified Qualified Code(s): N17.9 - Acute kidney failure, unspecified Code(s): N17.9 - Acute kidney failure, unspecified Status: Acute (2) COVID-19: Code(s): U07.1 - COVID-19 Status: Acute (3) COPD exacerbation: Code(s): J44.1 - Chronic obstructive pulmonary disease with (acute) exacerbation Status: Acute (4) Mdhqw-ks-fekjhvk kidney injury: Qualifiers: Acute renal failure type: unspecified Chronic kidney disease stage: stage 3 (moderate) Chronic kidney disease stage 3 subtype: stage 3b (GFR 30-44) Qualified Code(s): N17.9 - Acute kidney failure, unspecified; N18.32 - Chronic kidney disease, stage 3b Code(s): N17.9 - Acute kidney failure, unspecified; N18.9 - Chronic kidney disease, unspecified Status: Acute (5) GERD (gastroesophageal reflux disease): Code(s): K21.9 - Gastro-esophageal reflux disease without esophagitis Status: Acute (6) Acute hypoxemic respiratory failure: Code(s): J96.01 - Acute respiratory failure with hypoxia Status: Acute (7) Type 2 diabetes mellitus with hyperglycemia, without long-term current use of insulin: Code(s): E11.65 - Type 2 diabetes mellitus with hyperglycemia Status: Acute (8) C. difficile diarrhea: Code(s): A04.72 - Enterocolitis due to Clostridium difficile, not specified as recurrent Status: Acute DS: Summary Time Spent with Patient Time attestation: Total time spent providing and/or coordinating discharge services: DS: Data Data Completed and Pending Labs on day of discharge: Labs from last 24 hours 10/24/21 10/24/21 10/24/21 11:36 07:48 07:33 Sodium 139 Potassium 3.9 Chloride 99 Carbon Dioxide 36 H Anion Gap 4 L BUN 8 L Creatinine 2.70 H Estim Creat Clear Calc 19 Estimated GFR 23 L Glucose 111 H POC Capillary Glucose 166 H 122 H Calcium 7.5 L Phosphorus 2.2 L Albumin 2.5 L 10/23/21 10/23/21 21:01 16:26 Sodium Potassium Chloride Carbon Dioxide Anion Gap BUN Creatinine Estim Creat Clear Calc Estimated GFR Glucose POC Capillary Glucose 120 H 184 H Calcium Phosphorus Albumin Discharge Plan Discharge Consulting providers: Elizabeth Silva ; Hailey Gregg ; Jerry Valdez Patient Disposition: SNF Patient Instructions: Heart Failure (DC), COPD (Chronic Obstructive Pulmonary Disease) (DC), Type 2 Diabetes in the Older Adult (DC), COVID-19 (Coronavirus Disease 2019) (DC) Stand Alone Forms: General Discharge Information Discharge Medications: No Action carvedilol 12.5 mg tablet 12.5 mg PO BID Hold Instructions: Hold until follow-up with PCP donepezil 10 mg tablet 10 mg PO DAILY famotidine 20 mg tablet 40 mg PO BID gabapentin 300 mg capsule 300 mg PO BID furosemide 20 mg tablet 20 mg PO DAILY pioglitazone 30 mg tablet 30 mg PO DAILY ezetimibe 10 mg tablet 5 mg PO DAILY rosuvastatin 40 mg tablet 20 mg PO HS Januvia 100 mg tablet 100 mg PO DAILY albuterol sulfate 2.5 mg /3 mL (0.083 %) solution for nebulization 2.5 mg INHALATION BID hydrocodone-acetaminophen 5-325 mg tablet 2 tablet PO Q4H PRN (Reason: pain) Breztri Aerosphere 160-9-4.8 mcg/actuation Hfa Aerosol Inhaler 2 inh INHALATION BID aspirin 81 mg Tablet 81 mg PO HS albuterol sulfate 90 mcg/actuation HFA aerosol inhaler 1 inh inhalation QID PRN (Reason: shortness of breath or wheezing) Qty: 6.7 0RF ferrous sulfate 325 mg (65 mg iron) tablet 1 tablet PO DAILY Date of admission: 10/07/21 09:33 Primary Care Provider: Lindsay,Claude Torrez Admitting Provider: Leonard Downs V. Attending physician on admission: Melida Morris Condition: Serious
--- NOTE | 2021-10-24 14:50 | PM.DS ---
DS: Admitting Diagnosis Discharge Date October 24, 2021 Admitting Diagnosis altered mental status DS: Discharge Diagnosis Discharge Diagnosis (1) Acute kidney failure: Qualifiers: Acute renal failure type: unspecified Qualified Code(s): N17.9 - Acute kidney failure, unspecified Code(s): N17.9 - Acute kidney failure, unspecified Status: Acute Assessment and Plan: 10/23:? Hospital day 17, was admitted October 06, 2021, appreciate nephrology consultation, due to severe kidney injury, patient started on dialysis, Nephrology thinks patient still has a chance of recovering renal function, however it is slim, received dialysis this morning (2) COVID-19: Code(s): U07.1 - COVID-19 Status: Acute Assessment and Plan: patient tested positive for COVID? Not a candidate for remdesivir or baricitinib due to acute renal failure Since the course of ceftriaxone and azithromycin for possible pneumonia. ?received systemic steroids in emergency room ?continue to monitor ?supportive care Finished Decadron 10/17/2021 Chest x-ray 10/20/2021 with ? Improving opacities (3) COPD exacerbation: Code(s): J44.1 - Chronic obstructive pulmonary disease with (acute) exacerbation Status: Acute Assessment and Plan: resolved, at baseline (4) Vywbp-rd-lzfjyde kidney injury: Qualifiers: Acute renal failure type: unspecified Chronic kidney disease stage: stage 3 (moderate) Chronic kidney disease stage 3 subtype: stage 3b (GFR 30-44) Qualified Code(s): N17.9 - Acute kidney failure, unspecified; N18.32 - Chronic kidney disease, stage 3b Code(s): N17.9 - Acute kidney failure, unspecified; N18.9 - Chronic kidney disease, unspecified Status: Acute (5) GERD (gastroesophageal reflux disease): Code(s): K21.9 - Gastro-esophageal reflux disease without esophagitis Status: Acute (6) Acute hypoxemic respiratory failure: Code(s): J96.01 - Acute respiratory failure with hypoxia Status: Acute Assessment and Plan: initially was intubated and placed on ventilator, extubated October 11, 2021, weaned to BiPAP and then nasal cannula (7) Type 2 diabetes mellitus with hyperglycemia, without long-term current use of insulin: Code(s): E11.65 - Type 2 diabetes mellitus with hyperglycemia Status: Acute (8) C. difficile diarrhea: Code(s): A04.72 - Enterocolitis due to Clostridium difficile, not specified as recurrent Status: Acute Assessment and Plan: patient in isolation ?started on vancomycin p.o.Started Finished course of vancomycin.? Will monitor stool output Had 1 episode of loose watery stool today could be related to food Continues to worsen again since off vancomycin Start fidaxomicin 10/20/2021 ? 10/21/2021 slightly better continue to monitor ?10/24: Appears resolved, continue fidaxomicin for 5 more days to complete a 10 day course DS: Summary Hospital Course Hospital Course: 10/06/2021: 81-year-old male with past medical history significant for chronic kidney disease, type 2 diabetes mellitus, peripheral neuropathy, dyslipidemia, coronary artery disease, dementia, gastroesophageal reflux disease, orthostatic hypotension. patient was brought to the emergency room for evaluation due to altered mental status family call 911.? According to medical records patient had been having diarrhea and poor per orally intake for several days.? Patient is unable to give much history due to his acute altered mental status with confusion and acute illness.? Preliminary workup was significant for chemistry? panel? creatinine of 7 BUN 64 hemoglobin 8.5, hematocrit 28, urine analysis was significant for WBCs in the 16-20 range with numerous? RBCs in the 21-50 range. in emergency room patient was found to be in respiratory distress and wheezing require BiPAP support.? Patient tested positive for COVID and his tested positive for C difficile and was bro
[2021-10-24 16:33] LABS: Glucose Point of Care 157 mg/dl (65-105)
== END 2021-10-24 17:58 | DRG 177 ==
LOC: ANHED 22:43 → ANHIMU 10-07 00:33 → ANHICU 10-07 17:41 → ANHIMU 10-11 17:44 → ANH2MED 10-15 18:33
PROVIDERS: Family Medicine; Internal Medicine; Internal Medicine Nephrology; Nurse Practitioner Family; Physician Assistant; Surgery; Admitting Provider Internal Medicine; Emergency Provider Emergency Medicine; PCP Family Medicine; Visit Provider Student in an Organized Health Care Education/Training Program
PROC: 0JH63XZ Insertion of Tunneled Vascular Access Device into Chest Subcutaneous Tissue and Fascia, Percutaneous Approach (ICD-10-PCS; CPT 36908; principal; 2021-10-09 14:00)
DX: U07.1 COVID-19 (principal); E43 Unspecified severe protein-calorie malnutrition; J96.01 Acute respiratory failure with hypoxia; J18.9 Pneumonia, unspecified organism; N17.9 Acute kidney failure, unspecified; J44.1 Chronic obstructive pulmonary disease with (acute) exacerbation; A04.72 Enterocolitis due to Clostridium difficile, not specified as recurrent; I82.441 Acute embolism and thrombosis of right tibial vein; E87.1 Hypo-osmolality and hyponatremia; I13.0 Hypertensive heart and chronic kidney disease with heart failure and stage 1 through stage 4 chronic kidney disease, or unspecified chronic kidney disease; J44.0 Chronic obstructive pulmonary disease with (acute) lower respiratory infection; I50.9 Heart failure, unspecified; N18.32 Chronic kidney disease, stage 3b; D63.1 Anemia in chronic kidney disease; D69.6 Thrombocytopenia, unspecified; E87.6 Hypokalemia; E86.0 Dehydration; E11.22 Type 2 diabetes mellitus with diabetic chronic kidney disease; E11.42 Type 2 diabetes mellitus with diabetic polyneuropathy; E11.65 Type 2 diabetes mellitus with hyperglycemia; E78.5 Hyperlipidemia, unspecified; F03.90 Unspecified dementia, unspecified severity, without behavioral disturbance, psychotic disturbance, mood disturbance, and anxiety; I25.10 Atherosclerotic heart disease of native coronary artery without angina pectoris; K21.9 Gastro-esophageal reflux disease without esophagitis; I95.1 Orthostatic hypotension; M25.511 Pain in right shoulder; R79.89 Other specified abnormal findings of blood chemistry; R82.90 Unspecified abnormal findings in urine; Z68.27 Body mass index [BMI] 27.0-27.9, adult; Z79.82 Long term (current) use of aspirin; Z79.84 Long term (current) use of oral hypoglycemic drugs; Z87.891 Personal history of nicotine dependence; Z88.0 Allergy status to penicillin; Z88.5 Allergy status to narcotic agent; Z95.1 Presence of aortocoronary bypass graft
CPT/HCPCS: 36415; 36430; 36600; 71045; 71250; 73030; 74018; 74176; 76705; 76775; 77001; 80048; 80053; 80069; 80076; 81001; 82375; 82533; 82550; 82570; 82728; 82805; 82948; 83050; 83605; 83615; 83735; 83880; 83930; 84100; 84145; 84156; 84300; 84443; 85014; 85018; 85025; 85027; 85055; 85380; 85610; 85652; 85730; 86038; 86140; 86160; 86162; 86334; 86704; 86706; 86803; 86850; 86900; 86901; 86920; 87040; 87045; 87077; 87086; 87088; 87269; 87272; 87340; 87427; 87493; 89055; 93005; 93306; 93970; 94002; 94003; 94640; 96365; 96367; 96375; 96376; 97110; 97161; 97165; 97530; 97535; 99285; A9270; C1750; C9113; C9803; G0257; G0378; J0131; J0330; J0456; J0610; J0690; J0696; J1100; J1644; J1650; J1815; J2250; J2704; J2930; J3010; J3480; J7030; J7040; J7050; P9016; P9047; Q4081; Q5105; U0003; U0005

== ENCOUNTER 2021-12-06 19:21 | Inpatient (IN) | payer MEDICARE, MEDICAID, SELFPAY ==
[2021-12-06] VITALS (18 sets, daily range): BP systolic 91–102; BP diastolic 48–55; PULSE 56–72; RESP 12–17; TEMP 36.5; O2SAT 100
--- NOTE | ~2021-12-06 | XR_ITS ---
EXAMINATION: XR chest 1V portable DATE: 12/07/2021 11:43 INDICATION: Sepsis TECHNIQUE: frontal view of the chest was obtained. COMPARISON: Chest radiograph dated 10/20/2021 FINDINGS: Large-bore dual-lumen right internal jugular central venous catheter with distal tip at the superior cavoatrial junction. Increasing airspace opacities in the left lower lung zone which includes a small left pleural effusion with blunting at the costophrenic angle. Right lung remains clear. No pneumoth orax or right-sided pleural effusion. Heart size is normal. Median sternotomy wires and mediastinal s urgical clips are seen, likely from prior coronary artery bypass grafting. 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 IMPRESSION: 1. Increasing opacities in the left lower lung zone consistent with small left pleural effusion and a ssociated atelectasis and/or pneumonia. Reviewed, dictated and finalized at location A. IMPRESSION: 1. Increasing opacities in the left lower lung zone consistent with small left pleural effusion and associated atelectasis and/or pneumonia.
--- NOTE | ~2021-12-06 | XR_ITS ---
EXAMINATION: XR chest 1V portable DATE: 12/08/2021 01:51 INDICATION: Central line placement. TECHNIQUE: A single frontal view of the chest was obtained. COMPARISON: Chest single view 12/07/2021, CT abdomen and pelvis 12/06/2021 FINDINGS: The patient is rotated to his left. There is a moderate-sized left pleural effusion. There are airspace opacities at the lung bases. No pneumothorax. The heart size is normal. Median sternotom y wires and mediastinal surgical clips are seen, likely from prior coronary artery bypass grafting. A right internal jugular central venous catheter is seen with tip at the superior cavoatrial junction. IMPRESSION: 1. Worsened moderate-sized left pleural effusion. 2. Airspace opacities at the lung bases with worsening on the left, consistent with atelectasis versu s pneumonia. Reviewed, dictated and finalized at location A. IMPRESSION: 1. Worsened moderate-sized left pleural effusion. 2. Airspace opacities at the lung bases with worsening on the left, consistent with atelectasis versus pneumonia.
--- NOTE | ~2021-12-06 | CT_ITS ---
EXAMINATION: CT abdomen pelvis wo con DATE: 12/06/2021 20:50 INDICATION: Abdominal pain TECHNIQUE: Computed tomography (CT) of the abdomen and pelvis was performed without intravenous contr ast. Automated exposure control and iterative reconstruction technique were employed. The dose-length product was 637.77 mGy-cm. COMPARISON: 10/22/2021 FINDINGS: Small posterior layering bilateral pleural effusions, left greater than right. There is adjacent depe ndent compressive atelectasis in the bilateral lower lobes. Heart size is normal. Atherosclerotic cor onary artery calcific location is unchanged prior median sternotomy and coronary artery bypass grafti ng. The caudal aspect of the median sternotomy is dehiscent with fracture of several of the sternotom y wires. Aortic valve calcification. Small hepatic calcification consistent with old granulomatous di sease. Gallbladder, spleen, pancreas and left adrenal gland are normal. 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 Moderate left-sided and mild right-sided renal atrophy. There is diffu se edematous-appearing wall thickening of the colon with surrounding pericolonic inflammation trace s tranding consistent with pancolitis. Small bowel and appendix are normal. Bladder is decompressed whi ch limits evaluation. Small amount of ascites scattered throughout the abdomen and pelvis. No abscess or free intraperitoneal gas. There is calcified atherosclerosis of the aorta and many of the other a rteries. No pathologically enlarged abdominal or pelvic lymphadenopathy. Severe thoracic and lumbar s pondylosis. 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 There are 5 more c audal nonrib-bearing lumbar segments, the third with chronic nonunited left-sided transverse process fracture. IMPRESSION: 1. Mild diffuse colonic wall thickening consistent with pancolitis. 2. Small bilateral pleural effusions and small amount of ascites in the abdomen and pelvis. Reviewed, dictated and finalized at location A.
--- NOTE | ~2021-12-06 | US_ITS ---
EXAMINATION: US venous doppler UE LT DATE: 12/10/2021 18:03 INDICATION: Left upper limb swelling. TECHNIQUE: Grayscale ultrasound images without and with compression and Doppler ultrasound images of the left upper extremity veins were obtained. COMPARISON: None. FINDINGS: The visualized portions of the left internal jugular vein, subclavian vein, axillary vein, brachial v eins, basilic vein, cephalic vein, and radial vein are patent. The ulnar vein is not visualized. IMPRESSION: 1. No deep venous thrombosis. Reviewed, dictated and finalized at location E.
--- NOTE | ~2021-12-06 | CT_ITS ---
EXAMINATION: CT soft tissue neck wo con DATE: 12/09/2021 08:55 INDICATION: Left neck hematoma. Central line placement attempt. TECHNIQUE: Computed tomography (CT) of the neck was performed without intravenous contrast. Automated exposure control and iterative reconstruction technique were employed. The dose-length product was 4 96.10 mGy-cm. COMPARISON: Chest CT 10/22/2021 FINDINGS: The visualized portions of the lung apices demonstrate smooth septal thickening, consistent with mild pulmonary edema. There are no pathologically enlarged lymph nodes. Partially visualized is a right internal jugular central venous catheter. There is calcified atherosclerosis of the aorta an d many of the other arteries. In the left supraclavicular region, there is a 7.7 x 4.3 x 5.7 cm acute hematoma. There is widespread fat stranding in the neck, left worse than right. There is fat strandi ng in the superior mediastinum. There is mild mucosal thickening in the ethmoid and left maxillary si nuses. The mastoid air cells are normal. There is severe cervical spondylosis. IMPRESSION: 1. 7.7 x 4.3 x 5.7 cm acute hematoma in the left subclavicular region. 2. Mild pulmonary edema. Reviewed, dictated and finalized at location A.
[2021-12-06] MEDS: HYDROmorphone HCL INJ (*CRX) 1 MG/ML SYR 0.5 MG IV PUSH (21:00)
[2021-12-06] MEDS: SODIUM CHLORIDE 0.9% IV 500 ML IV CONT (21:01)
--- NOTE | 2021-12-06 21:02 | ED.GENADULT ---
HPI - General Adult General Chief complaint: Wound/Laceration Stated complaint: WORSENING SORES TO BUTTOCKS X 1 MONTH. Time Seen by Provider: 12/06/21 20:18 History of Present Illness HPI narrative: Patient is a 81-year-old gentleman who presents the emergency department with chief complaint of pain in the pelvic area. Patient reports that he has some wounds to his rear end and his back that have been getting worse. The patient states they are painful to touch reports that he is also end-stage renal disease on dialysis and completed his normal run of dialysis today as he normally goes Thursday patient denies fever they report no drainage from the wounds [facility] reported that the wounds were little bit more red than normal. Patient has also reported that he has been having diarrhea stools [facility] the [facility]. Related Data Home Medications Medication Instructions Recorded Confirmed carvedilol 12.5 mg tablet 12.5 mg PO BID 10/11/19 10/07/21 donepezil 10 mg tablet 10 mg PO DAILY 10/11/19 10/07/21 ezetimibe 10 mg tablet 5 mg PO DAILY 10/11/19 10/07/21 famotidine 20 mg tablet 40 mg PO BID 10/11/19 10/07/21 furosemide 20 mg tablet 20 mg PO DAILY 10/11/19 10/07/21 gabapentin 300 mg capsule 300 mg PO BID 10/11/19 10/07/21 pioglitazone 30 mg tablet 30 mg PO DAILY 10/11/19 10/07/21 rosuvastatin 40 mg tablet 20 mg PO HS 10/11/19 10/07/21 sitagliptin 100 mg tablet (Januvia) 100 mg PO DAILY 10/11/19 10/07/21 albuterol sulfate 2.5 mg/3 mL 2.5 mg inhalation BID 07/28/21 10/07/21 (0.083 %) solution for nebulization aspirin 81 mg tablet 81 mg PO HS 07/28/21 10/07/21 budesonide 160 mcg-glycopyr 9 2 inh inhalation BID 07/28/21 10/07/21 mcg-formot 4.8 mcg/actuation HFA inhaler (Breztri Aerosphere) ferrous sulfate 325 mg (65 mg 1 tablet PO DAILY 09/15/21 10/07/21 iron) tablet Allergies Allergy/AdvReac Type Severity Reaction Status Date / Time morphine Allergy Intermediate Itching Verified 10/06/21 22:49 Penicillins Allergy Mild Unknown Verified 10/06/21 22:49 Review of Systems Review of Systems: A 10 system review of systems was completed on the patient and is negative except for what is stated in the HPI. Nursing and ancillary documentation was reviewed. [facility] Past Medical History Medical History Acute on chronic anemia COPD (chronic obstructive pulmonary disease) Coronary artery disease Dementia Diabetes type 2, controlled Diabetic peripheral neuropathy Dysphagia With history absent gag reflex with failed modified barium swallow October 2018. Patient refused G-tube at the time. GERD (gastroesophageal reflux disease) History of left heart catheterization Hyperlipidemia Hypertension Hyponatremia 132-136 Normal echocardiogram October 2018 Orthostatic hypotension Right leg DVT Stage 3b chronic kidney disease Secondary to diabetes, hypertension, vascular disease and age Surgical History Surgical History H/O inguinal hernia repair Hx of CABG 3 vessel, 2000 Family History Family History Mother Breast cancer COPD (chronic obstructive pulmonary disease) Hypertension Sibling Malignant neoplasm of prostate COPD (chronic obstructive pulmonary disease) Sister Hypertension Acute myocardial infarction Brother Lung cancer Sister Social History Social History Social History: He has a greater than 100 pack per year smoking history. He smoked 3 packs of cigarettes per day from the time he was 13 until is CABG in 2002. He is down to smoking a few cigarettes cigarettes a week. He has live with the same woman for approximately 30 years but states that he is not . He has 2 daughters 1 of which he is estranged from. Code s
[2021-12-06 22:19] LABS: Basophils Percent Auto 0.1 % (0.2-1.2); Eosinophils Percent Auto 0.1 % (0-4.4); Hematocrit 25.8 % (42.0-52.0); Hemoglobin 7.7 g/dL (14.0-18.0); Immature Granulocyte Absolute 0.79 K/mm3 (0.00-0.031); Immature Granulocyte Percent A 4.2 % (0-0.5); Mean Corpuscular HGB Conc 29.8 g/dl (32-36); Mean Corpuscular Hemoglobin 30.3 pg (26-34); Mean Corpuscular Volume 101.6 fl (80-100); Mean Platelet Volume 9.8 fl (7.4-10.4); Monocytes Absolute Auto 0.7 K/mm3 (0.1-0.6); Monocytes Percent Auto 3.7 % (2.6-8.5); Neutrophils Absolute Auto 15.8 K/mm3 (1.3-6.7); Neutrophils Percent Auto 84.9 % (45.5-73.1); Platelet Count Result 213 k/mm3 (150-375); Red Blood Count 2.54 M/mm3 (4.6-6.20); Red Cell Distribution Width 17.3 % (11.5-14.5); White Blood Count 18.6 K/mm3 (4.5-10.0)
[2021-12-06 22:28] LABS: INR 1.2; Prothrombin Time 14.8 Seconds (11.1-14.7)
[2021-12-06 22:29] LABS: Partial Thromboplastin Time 34.3 SECONDS (22.3-36.8)
[2021-12-06 22:40] LABS: Alanine Aminotransferase 7 U/L (6-50); Albumin Level 1.8 g/dL (3.5-5.1); Alkaline Phosphatase 81 U/L (38-126); Anion Gap 4 mmol/L (8-16); Aspartate Amino Transferase 20 U/L (17-59); Bilirubin,Total 0.4 mg/dL (0.2-1.3); Blood Urea Nitrogen 4 mg/dL (9-20); Calcium 6.9 mg/dL (8.4-10.2); Carbon Dioxide 29 mmol/L (22-30); Chloride 99 mmol/L (98-107); Estimated Glomerular Filt Rate 53; Glucose 81 mg/dL (65-110); Magnesium 1.7 mg/dL (1.6-2.3); Potassium 2.3 mmol/L (3.4-5.0); Sodium 132 mmol/L (137-145)
[2021-12-07] VITALS (37 sets, daily range): BP systolic 74–109; BP diastolic 38–75; PULSE 58–131; RESP 11–26; TEMP 36–36.8; O2SAT 94–100; BMI 26.4
[2021-12-07 00:37] LABS: Anion Gap 9 mmol/L (8-16); Blood Urea Nitrogen 4 mg/dL (9-20); Calcium 6.8 mg/dL (8.4-10.2); Carbon Dioxide 30 mmol/L (22-30); Chloride 96 mmol/L (98-107); Estimated Glomerular Filt Rate 49; Glucose 84 mg/dL (65-110); Potassium 2.6 mmol/L (3.4-5.0); Sodium 135 mmol/L (137-145)
[2021-12-07] MEDS: VANCOMYCIN ORAL 500 MG/10 ML SYRUP PO ×4 (01:00→17:54)
[2021-12-07] MEDS: POTASSIUM CHLORIDE 20 MEQ PACKET (FOR LIQUID) 40 MEQ PO ×2 (01:00→14:25)
--- NOTE | 2021-12-07 01:05 | PM.IMHP ---
H&P: HPI History of Present Illness Date/Time: 12/07/21 01:05 Chief Complaint: Painful butt wounds Narrative: 81-year-old male with past medical history of chronic kidney disease on dialysis since October 2021, COVID pneumonia October 2021 requiring intubation, COPD, diabetes mellitus and recent C diff colitis who presented to the ER via EMS from [facility] due to sores on his low back in buttocks. Patient was hospitalized for 18 days in October due to COVID pneumonia with respiratory failure complicated by acute on chronic kidney disease requiring hemodialysis. Hospital stay was complicated by C diff colitis which he caught from his who is positive for C diff prior to his admission. The patient was admitted October 06 and shortly thereafter intubated. He was extubated on October 11. He had a dialysis catheter placed October 09 as it was not hopeful that the patient would have meaningful recovery of kidney function. He was initially treated with p.o. vancomycin however he completed his 1st course of vancomycin the patient had recurrence of his diarrhea in require treatment with Dificid and was treated from the through the 30 of October. The patient was discharged to half-way facility October 24. Since being discharged from the hospital patient has been on hemodialysis Thursday. He underwent hemodialysis today. He does reported history of chronic low blood pressures but on review of patient's chart the patient's blood pressures during his last hospitalization were relatively stable in the low 100-110 range. When he arrived to the ER the patient was hypotensive with systolic blood pressures in the 80s and 90s. He initially received a 500 mL bolus of fluid. When his hypotension recurred he received another 1.5 L. the patient has been having recurrence of multiple loose stools daily. He has not been having any fevers. However he has developed some pain due to some decubitus ulcers on his buttocks. Ulcers are small and slightly erythematous. He has not been having any fevers. half-way staff felt the patient's wounds were a slightly more erythematous than usual. The patient states that he is glad that he developed the wounds on his back because it means that it saved his life and that the rehab facility could not 6 seeding killing him. He is frustrated with the rehab facility stating that it would take them 2-3 hours to answer his call light. He reports he has been having loose stools 2 to 3 times a day. At the time of my exam the patient had had his 2nd incontinent stool since arriving to the ER. He denies any significant abdominal pain. Evidently they placed the patient back on Levaquin at the [facility] 2 or 3 days ago when his chest x-ray suggested a possible pneumonia. He reports his had increased stools since starting the antibiotics. The patient was having some mild coughing at the time my evaluation be states that is unchanged from prior. He has not been having any fevers. He is chronically chilled which is unchanged from baseline. The patient is currently alert oriented x3 but historically has not been the best historian. The patient cries out in pain even with light touch over areas of his back with there is no evidence of wounds and then at other times when he air palpating over an area of wound does not seem to cry out in pain in those areas. The patient denies being on oxygen since his discharge from the hospital. But according to in [facility] records and EMS patient has been on 2 L oxygen since he was discharged from the hospital in October. The patient states that he will not return to a rehab facility and that he plans to returned to his home. The patient's nephew has already called ER staff and stated that he plans on taking the patient home with home health at discharge Review of Systems Review of Systems: 12 systems were reviewed with pertinent positives and negatives per HPI. Except as docume
[2021-12-07] MEDS: SODIUM CHLORIDE 0.9% IV 500 ML 999 ML IV CONT (01:17)
[2021-12-07] MEDS: SODIUM CHLORIDE 0.9% IV 1,000 ML 999 ML IV CONT (01:18)
[2021-12-07 01:19] LABS: Procalcitonin 1.6 ng/mL
[2021-12-07] MEDS: KCL 20 MEQ/SW 100 ML 100 ML 50 MEQ IVPB (01:19)
--- NOTE | 2021-12-07 02:55 | PC.NURSE ---
This patient, Miky Fuentes, was admitted to IMU Room 207-01 at 0237. Patient/family oriented to hospital policies and general routines including ID bracelet, bed and alarms, visiting hours, pain management, procedures, bathroom and other care routines, personal items, smoking policy, room service/diet, and visiting hours. Information on how to activate the Rapid Response Team has been discussed. Patient/Family are encouraged to report perceived risks to care and to ask questions if they do not understand what they are told or what they should do.
[2021-12-07] MEDS: SODIUM CHLORIDE 0.9% IV 1,000 ML 125 ML IV CONT ×2 (02:56→10:21)
[2021-12-07] MEDS: MAGNESIUM SULF 2 GM/WATER 50ML 2 GM/50 ML BAG IVPB (03:32)
[2021-12-07] MEDS: POTASSIUM CHLORIDE 20 MEQ TABLET 40 MEQ PO (03:49)
[2021-12-07 04:27] LABS: Basophils Percent Auto 0.2 % (0.2-1.2); Eosinophils Percent Auto 0.2 % (0-4.4); Hematocrit 26.1 % (42.0-52.0); Immature Granulocyte Absolute 0.82 K/mm3 (0.00-0.031); Immature Granulocyte Percent A 4.4 % (0-0.5); Lymphocytes Absolute Auto 1.58 K/mm3 (0.9-3.2); Lymphocytes Percent Auto 8.5 % (18.3-44.2); Mean Corpuscular HGB Conc 30.7 g/dl (32-36); Mean Corpuscular Hemoglobin 31.3 pg (26-34); Mean Platelet Volume 9.7 fl (7.4-10.4); Monocytes Absolute Auto 0.8 K/mm3 (0.1-0.6); Monocytes Percent Auto 4.5 % (2.6-8.5); Neutrophils Absolute Auto 15.3 K/mm3 (1.3-6.7); Neutrophils Percent Auto 82.2 % (45.5-73.1); Platelet Count Result 238 k/mm3 (150-375); Red Blood Count 2.56 M/mm3 (4.6-6.20); Red Cell Distribution Width 17.9 % (11.5-14.5); White Blood Count 18.6 K/mm3 (4.5-10.0)
[2021-12-07 04:41] LABS: Alanine Aminotransferase 7 U/L (6-50); Albumin Level 1.8 g/dL (3.5-5.1); Alkaline Phosphatase 72 U/L (38-126); Anion Gap 11 mmol/L (8-16); Aspartate Amino Transferase 20 U/L (17-59); Bilirubin,Total 0.4 mg/dL (0.2-1.3); Blood Urea Nitrogen 4 mg/dL (9-20); Calcium 6.4 mg/dL (8.4-10.2); Carbon Dioxide 26 mmol/L (22-30); Chloride 99 mmol/L (98-107); Estimated CRCL calculation 34 ml/min; Estimated Glomerular Filt Rate 45; Glucose 82 mg/dL (65-110); Potassium 3.3 mmol/L (3.4-5.0); Sodium 136 mmol/L (137-145)
[2021-12-07 05:40] LABS: Toxigenic C. Diff POSITIVE (NEGATIVE)
[2021-12-07 08:27] LABS: Glucose Point of Care 74 mg/dl (65-105)
[2021-12-07] MEDS: ALBUTEROL SULFATE NEB 2.5 MG/3 ML INH INHALATION ×2 (08:39→20:23)
[2021-12-07] MEDS: FLUTICASONE/UMECLIDIN/VILANTER 100-62.5-25 MCG ELLIPTA 1 PUFF INHALATION (08:39)
[2021-12-07] MEDS: SODIUM CHLORIDE 0.9% IV 500 ML IV CONT (08:59)
[2021-12-07] MEDS: FERROUS SULFATE 324 MG TABLET PO (09:01)
[2021-12-07] MEDS: GABAPENTIN 300 MG CAPSULE PO ×2 (09:01→17:53)
[2021-12-07] MEDS: FAMOTIDINE 20 MG TABLET 40 MG PO (09:01)
[2021-12-07] MEDS: VITAMIN B CMPLX/VIT C/FOLIC AC 1 CAPSULE 1 CAP PO (09:01)
[2021-12-07] MEDS: ACIDOPHILUS/BULGARICUS CHEWABLE TABLET 1 TABLET PO ×2 (09:02→17:53)
[2021-12-07] MEDS: EZETIMIBE 5 MG TABLET PO (09:02)
[2021-12-07] MEDS: DONEPEZIL HCL 10 MG TABLET PO (09:02)
[2021-12-07] MEDS: ASPIRIN 81 MG ENTERIC TABLET PO (09:02)
--- NOTE | 2021-12-07 11:00 | WPDGICN ---
Assessment and Plan Assessment and plan (1) Pancolitis: Code(s): K51.00 - Ulcerative (chronic) pancolitis without complications Status: Acute Assessment and Plan: patient with pancolitis noted on imaging most consistent with recurrent C difficile colitis. Stool for C diff confirmed positive this morning. Plan to treat with oral vancomycin for at least 10 days. Continue close obstipation supportive care. (2) C. difficile diarrhea: Code(s): A04.72 - Enterocolitis due to Clostridium difficile, not specified as recurrent Status: Acute Assessment and Plan: C difficile infection noted to be recurrent at this time. Continue vancomycin orally for 10 days may need pulse therapy or tapering doses subsequently if patient continues to relapse. (3) Stage 3b chronic kidney disease: Code(s): N18.32 - Chronic kidney disease, stage 3b Status: Chronic Assessment and Plan: Patient with end-stage renal disease currently on dialysis. (4) Type 2 diabetes mellitus with hyperglycemia, without long-term current use of insulin: Code(s): E11.65 - Type 2 diabetes mellitus with hyperglycemia Status: Acute (5) Physical debility: Code(s): R53.81 - Other malaise Status: Acute Assessment and Plan: Patient unable to get significant ambulation is made and prone to decubitus ulcers and now in [facility] patient. This appears be chronic. (6) Decubitus ulcer: Code(s): L89.90 - Pressure ulcer of unspecified site, unspecified stage Status: Acute Assessment and Plan: Patient with decubitus ulcers identified from poor mobility. Surgical service to follow up. GI Consult Note Consult date/time: 12/07/21 11:00 Reason for consult: And colitis by CT scanning. HPI: Miky Fuentes is a 81 year old male I am asked to see for pancolitis noted on CT scanning. Patient hospitalized in October with COVID pneumonia requiring intubation. During that hospital stay was identified as having C difficile diarrhea. Patient subsequently has been followed at [facility]. Because of rather significant diffuse abdominal pain and diarrhea he was admitted to [facility] last evening. This morning stool for C difficile toxin was identified as being positive once again. Patient has poor mobility and unable to get out of the bed. He also has significant bed sores. Patient's past medical history is significant for chronic kidney disease for which she has been on dialysis since October 2021 as stated he has a history of COVID pneumonia with intubation in October, COPD, diabetes, and recent C diff. Review of Systems Review of Systems: Review of systems noncontributory. [facility] Past Medical History Medical History (Updated 12/07/21 @ 11:05 by Joe Slade MD) COPD (chronic obstructive pulmonary disease) Coronary artery disease Dementia Diabetes type 2, controlled Diabetic peripheral neuropathy Dysphagia With history absent gag reflex with failed modified barium swallow October 2018. Patient refused G-tube at the time. GERD (gastroesophageal reflux disease) History of left heart catheterization Hyperlipidemia Hypertension Hyponatremia 132-136 Normal echocardiogram October 2018 and October 2021 Orthostatic hypotension Respiratory failure requiring intubation Due to COVID pneumonia renal failure and C diff colitis extubated 10/11/2021 Right leg DVT Stage 3b chronic kidney disease Secondary to diabetes, hypertension, vascular disease and age Surgical History Surgical History (Updated 12/07/21 @ 01:16 by Lucia Le DO) H/O inguinal hernia repair Hx of CABG 3 vessel, 2000 S/P dialysis catheter insertion (10/09/21) Family History Family History Mother Breast cancer COPD (chronic obstructive pulmonary disease) Hypertension Sibling Malignant neoplasm of prostate COPD (chronic obstructive pul
--- NOTE | 2021-12-07 11:10 | PC.NURSE ---
1100- Dr. Motley into see pt- Orders to transfer to ICU - report given to Jennifer Aburto RN- pt transferred via bed accompanied by staff- belongings with pt
--- NOTE | 2021-12-07 11:18 | PM.CNGS ---
Assessment and Plan Assessment and plan (1) C. difficile colitis: Code(s): A04.72 - Enterocolitis due to Clostridium difficile, not specified as recurrent Status: Acute Assessment and Plan: exam largely benign, agree with p.o. vancomycin, serial exams and labs, unlikely toxic megacolon at this point (2) Hypotension due to hypovolemia: Code(s): I95.89 - Other hypotension; E86.1 - Hypovolemia Status: Acute Assessment and Plan: will need close monitoring given cardiac and renal issues, may need transfer to ICU (3) End stage renal disease: Code(s): N18.6 - End stage renal disease Status: Acute Assessment and Plan: last hemodialysis on Thursday History of Present Illness Consult details Consult date: 12/07/21 Reason for consult: abdominal pain Requesting physician: Lenny Barnes MD Narrative: The patient is a 81-year-old male with multiple medical issues presenting to the hospital from [facility] with abdominal pain, diarrhea. Of note, the patient was admitted with a severe COVID infection in October, requiring ICU stay and mechanical ventilation. At that time, the patient developed C diff colitis. The patient subsequently recovered and has been in the [facility] re[facility]itating. Over the last week, the patient has been noted to have diarrhea and diffuse abdominal pain. Workup in the emergency department, including imaging, is significant for recurrent C diff colitis. Review of Systems Constitutional: Constitutional: Reports as per HPI, Denies anorexia, Reports body ache(s), Denies chills, Reports fatigue, Reports fever(s), Reports lethargy, Reports malaise, Reports poor appetite, Reports weakness, Denies weight gain and Denies weight loss Eyes: Eyes: Reports no additional eye complaints ENT: Reports system reviewed and no additional complaints, except as documented Cardiovascular: Cardiovascular: Reports no additional cardiovascular complaints Respiratory: Respiratory: Reports no additional respiratory complaints Gastrointestinal: Gastrointestinal: Reports as per HPI, Reports abdominal pain, Reports GI cramping, Reports diarrhea, Reports loose stools, Denies nausea and Denies vomiting Genitourinary: Genitourinary: Reports no additional male genitourinary complaints Musculoskeletal: Musculoskeletal: Reports no additional musculoskeletal complaints Integumentary/Breasts: Skin/Breast: Reports system reviewed and no additional complaints, except as docu Neurologic: Reports system reviewed and no additional complaints, except as documented Psychiatric: Psychiatric: Reports no additional psychiatric complaints Endocrine: Endocrine: Reports no additional endocrine complaints Hematologic/Lymphatic: Hematologic/Lymphatic: Reports no additional hematologic/lymphatic complaints Allergic/Immunologic: Allergic/Immunologic: Reports no additional allergic/immunologic complaints [facility] Past Medical History Medical History (Updated 12/07/21 @ 11:25 by Franca Graves MD) COPD (chronic obstructive pulmonary disease) Coronary artery disease Dementia Diabetes type 2, controlled Diabetic peripheral neuropathy Dysphagia With history absent gag reflex with failed modified barium swallow October 2018. Patient refused G-tube at the time. GERD (gastroesophageal reflux disease) History of left heart catheterization Hyperlipidemia Hypertension Hyponatremia 132-136 Normal echocardiogram October 2018 and October 2021 Orthostatic hypotension Respiratory failure requiring intubation Due to COVID pneumonia renal failure and C diff colitis extubated 10/11/2021 Right leg DVT Stage 3b chronic kidney disease Secondary to diabetes, hypertension, vascular disease and age Surgical History Surgical History H/O inguinal hernia repair Hx of CABG 3 vessel, 2000 S/P dialysis catheter insertion (10/09/21) Family History Family Histor
--- NOTE | 2021-12-07 11:44 | WPDCNINT ---
Assessment and Plan Assessment and plan (1) C. difficile colitis: Code(s): A04.72 - Enterocolitis due to Clostridium difficile, not specified as recurrent Status: Acute Assessment and Plan: Recurrent C diff, patient had C diff in October 2021 -he was recently on Levaquin for questionable pneumonia [facility] -diarrhea increased after he took the antibiotics -stool for C diff was positive on 12/06/2021 -patient started on PO vancomycin (12/06), added fidaxomicin (12/07) -GI following the patient -continue IV hydration with albumin and Hespan for fluid losses with diarrhea (2) Pancolitis: Code(s): K51.00 - Ulcerative (chronic) pancolitis without complications Status: Acute Assessment and Plan: Patient presented with abdominal pain, diarrhea -stool for C diff was positive -appreciate GI and surgery evaluation, both recommend supportive management -continue antibiotics as above -will keep NPO for now -bowel rest -no need for NG tube at this time 12/06/2021 CT scan of the abdomen and pelvis: Showed mild diffuse colonic wall thickening consistent with brandt colitis, all bilateral pleural effusions and small amount of ascites in the abdomen and pelvis (3) Sepsis: Code(s): A41.9 - Sepsis, unspecified organism Status: Acute Assessment and Plan: Patient with hypotension, leukocytosis -source pancolitis, C diff -stool for C diff was positive on 12/06/2021 -continue p.o. vancomycin and fidaxomicin -patient's systolic blood pressures run in the 90s to 100s, -given his albumin is significantly low at 1.5 with protein calorie malnutrition -will give albumin and Hespan -patient has end-stage renal disease on dialysis, will try to match fluid losses with diarrhea -check lactic acid level (4) End stage renal disease: Code(s): N18.6 - End stage renal disease Status: Acute Assessment and Plan: Patient with end-stage renal disease on hemodialysis -nephrology has been consulted -dialysis will be done per Nephrology (5) Hypoalbuminemia due to protein-calorie malnutrition: Code(s): E88.09 - Other disorders of plasma-protein metabolism, not elsewhere classified; E46 - Unspecified protein-calorie malnutrition Status: Acute Assessment and Plan: Started patient on albumin (6) Electrolyte abnormality: Code(s): E87.8 - Other disorders of electrolyte and fluid balance, not elsewhere classified Status: Acute Assessment and Plan: Replace potassium (7) Decubitus ulcer: Code(s): L89.90 - Pressure ulcer of unspecified site, unspecified stage Status: Acute Assessment and Plan: Wound Care has been consulted (8) Diabetes type 2, controlled: Code(s): E11.9 - Type 2 diabetes mellitus without complications Status: Acute Assessment and Plan: Continue sliding scale insulin Accu-Cheks -hemoglobin A1c on 07/30/2021 was 6.3 Plan DVT prophylaxis: Heparin SQ Stress ulcer prophylaxis: Protonix Nutrition: NPO for now except sepsis with oral antibiotics Discussed with patient in details regarding his health condition given as extensive medical history, he requests to be a full code and states he wants to live, he stated he will cooperate with anything that we need to do so that he can be kept alive. Patient is currently a full code. He understands that he has been having diarrhea with low blood pressures and may require a central line to which he consented if if needed Code Status: Full code Critical Care Time Spent: 46 minute Due to a high probability of clinically significant, life threatening deterioration, the patient required my highest level of preparedness to intervene emergently and I personally spent this critical care time directly and personally managing the patient. This critical care time included obtaining a history; examining the patient; pulse oximetry; ordering and review of studie
[2021-12-07] MEDS: hetaSTARCH 6%/NACL 500 ML 250 ML IV CONT ×2 (11:56→21:38)
[2021-12-07 12:19] LABS: Lactic Acid Reflex 1.2 mmol/L (0.7-2.0)
--- NOTE | 2021-12-07 12:52 | PM.CNNEP ---
Assessment and Plan Assessment and plan (1) ROEL (acute kidney injury): Code(s): N17.9 - Acute kidney failure, unspecified Status: Acute Assessment and Plan: due to ATN from infection on last hospitalization (COVID and C. diff colitis) currently dialysis dependent he has underlying CKD (see #2) and the hope is that he will recover but his ongoing C. diff colitis (as noted on this admission) may delay/impair the possibility renal recovery has dialysis dependent for almost 2 months now -- no evidence of recovery as of yet he may be heading toward ESRD given this hospitalization last HD treatment on Thursday (12/06/21) at outpatient dialysis unit plan next HD treatment on Thursday (12/09/21) (2) Stage 3b chronic kidney disease: Code(s): N18.32 - Chronic kidney disease, stage 3b Status: Chronic Assessment and Plan: baseline creatinine usually runs ~ 1.9 - 2.5mg/dl felt to be secondary to diabetes, hypertension, vascular disease, and age based on outpatient evaluation (3) C. difficile colitis: Code(s): A04.72 - Enterocolitis due to Clostridium difficile, not specified as recurrent Status: Acute Assessment and Plan: recurrent issue/problem first diagnosed in October 2021 may have been exacerbated by recent levaquin use at long term (being treated for possible pnuemonia) however, he was already having diarrhea issues before this antibiotic use stool for C diff was positive on 12/06/2021 started on PO vancomycin as well as fidaxomicin Gastroenterology following using IVF hydration, albumin and Hespan to compensate for fluid losses by diarrhea (4) Hypokalemia: Code(s): E87.6 - Hypokalemia Status: Acute Assessment and Plan: due to ongoing GI losses and poor oral intake replete as needed follow repeat K+ (5) Pancolitis: Code(s): K51.00 - Ulcerative (chronic) pancolitis without complications Status: Acute Assessment and Plan: as noted by presentation with abdominal pain and diarrhea as well as CT scan findings see #3 Gastroenterology and Surgey following on antibiotics NPO and bowel reset (6) Sepsis: Code(s): A41.9 - Sepsis, unspecified organism Status: Acute Assessment and Plan: as noted by hypotension and elevated WBC due to pancolitis and C. diff colitis on antibiotic therapy IV albumin given hypoalbuminemia and associated third spacing may need pressor therapy depending on trend of blood pressure (7) Diabetes type 2, controlled: Code(s): E11.9 - Type 2 diabetes mellitus without complications Status: Acute Assessment and Plan: follow Accu-Cheks glycemic control Will continue to follow. History of Present Illness Reason for Consult Consult date: 12/07/21 Reason for consult: acute renal failure (on CKD with dialysis dependence) Chief Complaint Chief complaint: Pancolitis, hyperkalemia, ESRD, leukocytosis History of Present Illness Narrative: The patient is a 81-year-old male with extensive past medical history who presented to [facility] Emergency room with complaints of abdominal pain, diarrhea, and worsening wounds on his buttocks. The patient's nursing facility sent him to the emergency room to the persistence of these complaints/issues for undisclosed period of time. The patient does report though that he has continued to have on and off diarrhea since his discharge from [facility] a few months ago. During that hospitalization, he had C diff colitis complicated by acute respiratory failure requiring intubation and acute on chronic kidney injury which required /resulted in the need for dialysis and its continuation on discharge. The patient does report that the diarrhea seemed to increase after he was started on oral antibiotic therapy for his presumed pneumonia. His diarrhea has been going on for least a week but seems to have been wo
--- NOTE | 2021-12-07 12:52 | P.CONNP_ITS ---
Assessment and Plan Assessment and plan (1) ROEL (acute kidney injury): Code(s): N17.9 - Acute kidney failure, unspecified Status: Acute Assessment and Plan: * due to ATN from infection on last hospitalization (COVID and C. diff colitis) * currently dialysis dependent * he has underlying CKD (see #2) and the hope is that he will recover but his ongoing C. diff colitis (as noted on this admission) may delay/impair the possibility renal recovery * has dialysis dependent for almost 2 months now -- no evidence of recovery as of yet * he may be heading toward ESRD given this hospitalization * last HD treatment on Thursday (12/06/21) at outpatient dialysis unit * plan next HD treatment on Thursday (12/09/21) (2) Stage 3b chronic kidney disease: Code(s): N18.32 - Chronic kidney disease, stage 3b Status: Chronic Assessment and Plan: * baseline creatinine usually runs ~ 1.9 - 2.5mg/dl * felt to be secondary to diabetes, hypertension, vascular disease, and age based on outpatient evaluation (3) C. difficile colitis: Code(s): A04.72 - Enterocolitis due to Clostridium difficile, not specified as recurrent Status: Acute Assessment and Plan: * recurrent issue/problem * first diagnosed in October 2021 * may have been exacerbated [facility] (being [facility] for possible pnuemonia) * however, he was already having diarrhea issues before this antibiotic use * stool for C diff was positive on 12/06/2021 * started on PO vancomycin as well as fidaxomicin * Gastroenterology following * using IVF hydration, albumin and Hespan to compensate for fluid losses by diarrhea (4) Hypokalemia: Code(s): E87.6 - Hypokalemia Status: Acute Assessment and Plan: * due to ongoing GI losses and poor oral intake * replete as needed * follow repeat K+ (5) Pancolitis: Code(s): K51.00 - Ulcerative (chronic) pancolitis without complications Status: Acute Assessment and Plan: * as noted by presentation with abdominal pain and diarrhea as well as CT scan findings * see #3 * Gastroenterology and Surgey following * on antibiotics * NPO and bowel reset (6) Sepsis: Code(s): A41.9 - Sepsis, unspecified organism Status: Acute Assessment and Plan: * as noted by hypotension and elevated WBC * due to pancolitis and C. diff colitis * on antibiotic therapy * IV albumin given hypoalbuminemia and associated third spacing * may need pressor therapy depending on trend of blood pressure (7) Diabetes type 2, controlled: Code(s): E11.9 - Type 2 diabetes mellitus without complications Status: Acute Assessment and Plan: * follow Accu-Cheks * glycemic control Will continue to follow. History of Present Illness Reason for Consult Consult date: 12/07/21 Reason for consult: acute renal failure (on CKD with dialysis dependence) Chief Complaint Chief complaint: Pancolitis, hyperkalemia, ESRD, leukocytosis History of Present Illness Narrative: The patient is a 81-year-old male with extensive past medical history who presented to [facility] Emergency room with complaints of abdominal pain, diarrhea, and worsening wounds on his buttocks. The patient's nursing facility sent him to the emergency room to the persistence of these complaints/issues for undisclosed period of time. The patient does report though that he has continued to have on and off diarrhea since his discharge from [facility]
--- NOTE | 2021-12-07 13:13 | PM.IMPN ---
Progress Note: A&P Assessment and Plan (1) C. difficile colitis: Code(s): A04.72 - Enterocolitis due to Clostridium difficile, not specified as recurrent Status: Acute Assessment and Plan: -patient started on PO vancomycin (12/06), added fidaxomicin (12/07) -GI following the patient (2) Pancolitis: Code(s): K51.00 - Ulcerative (chronic) pancolitis without complications Status: Acute Assessment and Plan: Appreciate GI and surgical evaluation. See plan above. Continue antibiotics. (3) Sepsis: Code(s): A41.9 - Sepsis, unspecified organism Status: Acute Assessment and Plan: Patient with hypotension, leukocytosis -source pancolitis, C diff Continue supportive care in the ICU. (4) End stage renal disease: Code(s): N18.6 - End stage renal disease Status: Acute Assessment and Plan: Patient with end-stage renal disease on hemodialysis -nephrology has been consulted -dialysis will be done per Nephrology (5) Hypoalbuminemia due to protein-calorie malnutrition: Code(s): E88.09 - Other disorders of plasma-protein metabolism, not elsewhere classified; E46 - Unspecified protein-calorie malnutrition Status: Acute Assessment and Plan: Started patient on albumin (6) Electrolyte abnormality: Code(s): E87.8 - Other disorders of electrolyte and fluid balance, not elsewhere classified Status: Acute Assessment and Plan: Monitor electrolytes (7) Decubitus ulcer: Code(s): L89.90 - Pressure ulcer of unspecified site, unspecified stage Status: Acute Assessment and Plan: Wound Care to see (8) Diabetes type 2, controlled: Code(s): E11.9 - Type 2 diabetes mellitus without complications Status: Acute Assessment and Plan: Monitor blood sugars. Insulin as needed (9) Acute hypokalemia: Code(s): E87.6 - Hypokalemia Status: Acute Subjective Date/time seen: 12/07/21 13:13 Patient complaining of some abdominal pain. Also having some low blood pressure this morning. Also having significant stool output. Exam Narrative: General: Patient is pleasant, in no acute distress HEENT:? Dry oral mucosa, sclera is clear, pupils equal and reactive, Neck:? Supple, no lymphadenopathy Respiratory:? Adequate air entry, decreased air entry at bases otherwise clear to auscultation bilaterally Cardiac:? Regular rate and rhythm, S1-S2 is normal Abdomen:? Soft, nondistended, diffuse tenderness, no guarding, normoactive bowel sounds Extremities:? Lower extremity pitting edema bilaterally, decreased pedal pulses Neuro:? Patient is awake, alert, oriented x3, nonfocal, follows simple commands in all extremities answers to questions appropriately Skin:? Bruising noted on the upper extremities, decubitus ulcers to the buttocks bilaterally Psych:? Normal affect and mentation Objective Data Vital Signs Vital Signs: Vital Signs - 24 hr 12/06/21 19:31 12/06/21 19:33 12/06/21 19:34 Temperature 97.7 F Pulse Rate 60 66 61 Respiratory Rate 15 17 13 Blood Pressure 91/50 L 91/50 L Pulse Oximetry 100 100 Oxygen Delivery Room Air Oxygen Flow Rate 12/06/21 20:04 12/06/21 20:15 12/06/21 20:16 Temperature Pulse Rate 58 L 60 56 L Respiratory Rate 13 14 14 Blood Pressure 100/55 L Pulse Oximetry 100 Oxygen Delivery Oxygen Flow Rate 12/06/21 20:30 12/06/21 20:31 12/06/21 20:57 Temperature Pulse Rate 60 58 L 60 Respiratory Rate 15 15 15 Blood Pressure 102/48 L Pulse Oximetry 100 Oxygen Delivery Oxygen Flow Rate 12/06/21 21:00 12/06/21 21:31 12/06/21 21:45 Temperature Pulse Rate 63 59 L 64 Respiratory Rate 14 12 14 Blood Pressure Pulse Oximetry 100 100 100 Oxygen Delivery Oxygen Flow Rate 12/06/21 22:09 12/06/21 22:16 12/06/21 22:30 Temperature Pulse Rate 72 64 66 Respiratory Rate 15 13 17 Blood Pressure Pulse Oximetry Oxy
[2021-12-07] MEDS: MIDODRINE HCL 10 MG TABLET PO ×2 (14:25→17:53)
[2021-12-07] MEDS: FIDAXOMICIN 200 MG TABLET PO ×2 (14:25→19:45)
[2021-12-07] MEDS: PANTOPRAZOLE SODIUM IV 40 MG VIAL IV PUSH ×2 (14:26→19:45)
[2021-12-07] MEDS: ALBUMIN HUMAN 25% 25 GM/100 ML 100 ML IVPB ×3 (14:26→23:03)
[2021-12-07 18:17] LABS: Glucose Point of Care 83 mg/dl (65-105)
[2021-12-07 18:52] LABS: IFOB Positive Control Positive; Immunochemical Fecal Occult Bl Positive (N)
[2021-12-07] MEDS: HEPARIN SODIUM 5,000 UNITS/ML VIAL 5000 UNITS SUB-Q (19:46)
[2021-12-08] VITALS (34 sets, daily range): BP systolic 80–128; BP diastolic 41–65; PULSE 55–74; RESP 14–23; TEMP 36.1–36.7; O2SAT 94–100
[2021-12-08] MEDS: VANCOMYCIN ORAL 500 MG/10 ML SYRUP PO ×4 (01:48→17:03)
[2021-12-08 01:57] LABS: Glucose Point of Care 70 mg/dl (65-105)
--- NOTE | 2021-12-08 02:07 | P.PCNBED_ITS ---
Procedures Central Line Placement Right Femoral: Central Line Date: 12/08/21 Central Line Time: 01:10 Consent: I have discussed with the patient and/or surrogate, the non-emergent placement of a central venous catheter, including its clinical necessity/indication and associated potential risks and complications. The patient and/or surrogate understand(s) and acknowledge(s) the need to proceed with central venous catheter insertion as an important element of the patient's clinical management. Time Out Performed: Yes Patient Position: trendelenburg Patient placed on monitor/pulse ox: Yes Provider Prep: mask, sterile gown, sterile gloves, Max. sterile barrier precautions, cap and hand hygiene with conventional soap/water or alcohol based hand rub Central line prep: 2% Chlorhexidine scrub Local anesthesia used: lidocaine 1% Amount of anesthesia used (ml): 3 Sterile US Technique with sterile gel/sterile probe covers: Yes Central line lumen inserted: triple Icelandic: 7 Length (cm): 20 Depth of Insertion (cm): 20 Post Procedure: sutured in place, good blood return, all ports aspirated, flushed, capped, transparent dressing, hemostatic product, antimicrobial product, securement product and aseptic technique maintained throughout procedure Post procedure x-ray: no pneumothorax seen Patient tolerated procedure: well Additional comments: Initially attempted a left IJ but guidewire would not feed. Patient did have some oozing from the puncture site and had a postprocedure hematoma. Proximally 10 mL of blood loss from the right IJ puncture site. Pressure was held at hematoma site for 5 minutes. Postprocedure dressing has been applied. chest x- ray was obtained and verified there was no evidence of pneumothorax. Subsequently the patient's groin was prepped and instead central line was placed in the right femoral. Line was placed with standard technique in all ports alexis blood and flushed. His no evidence of hematoma at the groin puncture site. Less than 3 mL of blood loss from the right femoral puncture.
[2021-12-08] MEDS: ALBUMIN HUMAN 25% 25 GM/100 ML 100 ML IVPB ×3 (05:48→17:04)
[2021-12-08 06:04] LABS: Glucose Point of Care 70 mg/dl (65-105)
[2021-12-08 06:07] LABS: Basophils Percent Auto 0.2 % (0.2-1.2); Eosinophils Absolute Auto 0.1 K/mm3 (0-0.3); Eosinophils Percent Auto 0.6 % (0-4.4); Immature Granulocyte Absolute 0.67 K/mm3 (0.00-0.031); Immature Granulocyte Percent A 6.7 % (0-0.5); Lymphocytes Absolute Auto 1.22 K/mm3 (0.9-3.2); Lymphocytes Percent Auto 12.1 % (18.3-44.2); Mean Corpuscular HGB Conc 29.9 g/dl (32-36); Mean Corpuscular Hemoglobin 31.4 pg (26-34); Mean Corpuscular Volume 104.9 fl (80-100); Monocytes Absolute Auto 0.6 K/mm3 (0.1-0.6); Monocytes Percent Auto 6.1 % (2.6-8.5); Neutrophils Absolute Auto 7.5 K/mm3 (1.3-6.7); Neutrophils Percent Auto 74.3 % (45.5-73.1); Platelet Count Result 162 k/mm3 (150-375); Red Blood Count 1.85 M/mm3 (4.6-6.20); Red Cell Distribution Width 18.6 % (11.5-14.5); White Blood Count 10.1 K/mm3 (4.5-10.0)
[2021-12-08 06:20] LABS: Lactic Acid Reflex < 0.5 mmol/L (0.7-2.0)
[2021-12-08 06:21] LABS: Albumin Level 1.6 g/dL (3.5-5.1); Alkaline Phosphatase 41 U/L (38-126); Anion Gap 6 mmol/L (8-16); Aspartate Amino Transferase 16 U/L (17-59); Bilirubin,Total 0.2 mg/dL (0.2-1.3); Blood Urea Nitrogen 5 mg/dL (9-20); Calcium 6.8 mg/dL (8.4-10.2); Carbon Dioxide 21 mmol/L (22-30); Chloride 110 mmol/L (98-107); Estimated CRCL calculation 23 ml/min; Estimated Glomerular Filt Rate 29; Glucose 74 mg/dL (65-110); Phosphorus 1.9 mg/dL (2.5-4.5); Potassium 2.5 mmol/L (3.4-5.0); Sodium 137 mmol/L (137-145)
[2021-12-08 06:32] LABS: Hematocrit 19.4 % (42.0-52.0)
[2021-12-08 06:33] LABS: Hemoglobin 5.8 g/dL (14.0-18.0)
[2021-12-08] MEDS: CENTRAL LINE FLUSH 10 ML IV PUSH ×4 (06:38→20:07)
[2021-12-08 06:42] LABS: Alanine Aminotransferase < 4 U/L (6-50)
--- NOTE | 2021-12-08 07:20 | WPDGIPROGNO ---
Progress Note: A&P Assessment and Plan (1) C. difficile colitis: Code(s): A04.72 - Enterocolitis due to Clostridium difficile, not specified as recurrent Status: Acute Assessment and Plan: Patient with C difficile colitis. Pancolitis noted on CT scan. Plan to continue oral vancomycin. Supportive care for now. (2) End stage renal disease: Code(s): N18.6 - End stage renal disease Status: Acute Assessment and Plan: Patient with end-stage renal disease. Remains on dialysis. (3) Decubitus ulcer: Code(s): L89.90 - Pressure ulcer of unspecified site, unspecified stage Status: Acute Assessment and Plan: Decubitus ulcers noted. Secondary to poor mobility. Is symptomatic treatment. (4) Hypotension due to hypovolemia: Code(s): I95.89 - Other hypotension; E86.1 - Hypovolemia Status: Acute Assessment and Plan: Patient with low blood pressure yesterday prompting transfer to the ICU. Now with a central line. Be monitored closely. IV rehydration plan. Perhaps this accounts for low blood count this morning. (5) Anemia: Code(s): D64.9 - Anemia, unspecified Status: Chronic Assessment and Plan: Patient with chronic anemia attributed to chronic kidney disease. Decline in hemoglobin to 5.8 this morning may be related to rehydration. Continue monitor closely. Patient is to receive a unit of pack cells. (6) Dementia: Code(s): F03.90 - Unspecified dementia without behavioral disturbance Status: Acute Subjective Date/time seen: 12/08/21 07:20 Patient alert fairly comfortable at rest. Now in the ICU because of hypotension yesterday. No bleeding identified. Patient still notes some abdominal bloating and diarrhea stools. Review of Systems Review of Systems: Review of systems noncontributory. Exam Narrative: Physical exam reveals patient reports no bleeding. Vital signs stable. HEENT exam reveals no icterus. Lungs are clear. Heart without murmur. Abdomen soft and Nonspecific diffuse tenderness noted.. Objective Data Vital Signs Vital Signs: Vital Signs - 24 hr 12/07/21 08:00 12/07/21 08:00 12/07/21 08:15 Temperature 98.2 F Pulse Rate 63 64 Respiratory Rate 12 Blood Pressure 77/38 L Pulse Oximetry 100 Oxygen Delivery Oxygen Flow Rate 12/07/21 08:05 12/07/21 08:20 12/07/21 08:55 Temperature Pulse Rate 68 Respiratory Rate 18 Blood Pressure 85/38 L 89/42 L Pulse Oximetry 100 99 Oxygen Delivery Nasal Cannula Oxygen Flow Rate 2.5 12/07/21 10:35 12/07/21 09:15 12/07/21 10:00 Temperature Pulse Rate 68 79 Respiratory Rate 18 Blood Pressure Pulse Oximetry 97 Oxygen Delivery Room Air Oxygen Flow Rate 12/07/21 10:30 12/07/21 12:00 12/07/21 12:00 Temperature 97.4 F L Pulse Rate 62 63 63 Respiratory Rate 20 16 Blood Pressure 74/48 L 82/52 L Pulse Oximetry 98 100 Oxygen Delivery Oxygen Flow Rate 12/07/21 14:00 12/07/21 12:00 12/07/21 14:00 Temperature Pulse Rate 64 64 Respiratory Rate 14 Blood Pressure 97/51 L Pulse Oximetry 100 Oxygen Delivery Room Air Oxygen Flow Rate 12/07/21 16:00 12/07/21 16:00 12/07/21 16:00 Temperature Pulse Rate 65 65 Respiratory Rate 16 Blood Pressure 98/59 L Pulse Oximetry 100 Oxygen Delivery Room Air Oxygen Flow Rate 12/07/21 18:00 12/07/21 18:00 12/07/21 20:23 Temperature Pulse Rate 71 71 69 Respiratory Rate 20 18 Blood Pressure 109/56 L Pulse Oximetry 98 Oxygen Delivery Oxygen Flow Rate 12/07/21 20:26 12/07/21 20:33 12/07/21 20:00 Temperature Pulse Rate 68 71 Respiratory Rate 18 Blood Pressure Pulse Oximetry 97 Oxygen Delivery Room Air Oxygen Flow Rate 12/07/21 20:00 12/07/21 20:00 12/07/21 19:01 Temperature 96.8 F L Pulse Rate 68 71 67 Respiratory Rate 18 15 16 Blood Pressure 105/75 105/49 L P
[2021-12-08 07:39] LABS: Mean Corpuscular Hemoglobin 29.7 pg (26-34); Mean Corpuscular Volume 102.2 fl (80-100); Mean Platelet Volume 9.1 fl (7.4-10.4); Platelet Count Result 154 k/mm3 (150-375); Red Blood Count 1.82 M/mm3 (4.6-6.20); Red Cell Distribution Width 18.7 % (11.5-14.5); White Blood Count 10.1 K/mm3 (4.5-10.0)
[2021-12-08 07:46] LABS: Hematocrit 18.6 % (42.0-52.0); Hemoglobin 5.4 g/dL (14.0-18.0)
[2021-12-08 07:56] LABS: Anion Gap 12 mmol/L (8-16); Blood Urea Nitrogen 4 mg/dL (9-20); Calcium 6.7 mg/dL (8.4-10.2); Carbon Dioxide 22 mmol/L (22-30); Chloride 105 mmol/L (98-107); Estimated CRCL calculation 27 ml/min; Estimated Glomerular Filt Rate 29; Glucose 75 mg/dL (65-110); Potassium 2.7 mmol/L (3.4-5.0); Sodium 139 mmol/L (137-145)
[2021-12-08] MEDS: SODIUM CHLORIDE 0.9% IV 250 ML 30 ML IV CONT ×2 (08:15→21:47)
[2021-12-08] MEDS: POTASSIUM CHLORIDE 20 MEQ PACKET (FOR LIQUID) 40 MEQ PO (08:16)
[2021-12-08] MEDS: ACIDOPHILUS/BULGARICUS CHEWABLE TABLET 1 TABLET PO ×2 (08:17→17:04)
[2021-12-08] MEDS: EUCERIN CREAM 120 GM JAR 1 APPLIC TOPICAL (08:17)
[2021-12-08] MEDS: HEPARIN SODIUM 5,000 UNITS/ML VIAL 5000 UNITS SUB-Q (08:18)
[2021-12-08] MEDS: FIDAXOMICIN 200 MG TABLET PO ×2 (08:18→20:06)
[2021-12-08] MEDS: GABAPENTIN 300 MG CAPSULE PO ×2 (08:18→17:03)
[2021-12-08] MEDS: MIDODRINE HCL 10 MG TABLET PO ×3 (08:19→17:03)
[2021-12-08] MEDS: PANTOPRAZOLE SODIUM IV 40 MG VIAL IV PUSH ×2 (08:19→20:06)
[2021-12-08] MEDS: ALBUTEROL SULFATE NEB 2.5 MG/3 ML INH INHALATION ×2 (08:32→20:08)
--- NOTE | 2021-12-08 08:39 | WPDINTPN ---
Progress Note: A&P Assessment and Plan (1) Anemia: Code(s): D64.9 - Anemia, unspecified Status: Chronic Assessment and Plan: Patient dropped his hemoglobin to 5.4 this morning, stool in the FMS is dark in color. -GI following the patient -will transfuse 1 unit of packed RBC -INR was 1.2 (on 12/06/2021) -already on Protonix IV q.12 hours -discussed with GI, will transfuse and continue to monitor series H&H (2) C. difficile colitis: Code(s): A04.72 - Enterocolitis due to Clostridium difficile, not specified as recurrent Status: Acute Assessment and Plan: Recurrent C diff, patient had C diff in October 2021 -he was recently on Levaquin for questionable pneumonia at the assisted/rehab center -diarrhea increased after he took the antibiotics -stool for C diff was positive on 12/06/2021 -patient started on PO vancomycin (12/06), added fidaxomicin (12/07) -GI following the patient -abdominal pain much improved this morning (3) Pancolitis: Code(s): K51.00 - Ulcerative (chronic) pancolitis without complications Status: Acute Assessment and Plan: Patient presented with abdominal pain, diarrhea -stool for C diff was positive -appreciate GI and surgery evaluation, both recommend supportive management -continue antibiotics as above -will keep NPO for now -bowel rest -no need for NG tube at this time 12/06/2021 CT scan of the abdomen and pelvis: Showed mild diffuse colonic wall thickening consistent with brandt colitis, all bilateral pleural effusions and small amount of ascites in the abdomen and pelvis (4) Sepsis: Code(s): A41.9 - Sepsis, unspecified organism Status: Acute Assessment and Plan: Patient with hypotension, leukocytosis. -source pancolitis, C diff, hypovolemia -stool for C diff was positive on 12/06/2021 -continue p.o. vancomycin and fidaxomicin -patient's systolic blood pressures run in the 90s to 100s, right femoral central line was placed patient pressors -continue albumin -patient has end-stage renal disease on dialysis, will try to match fluid losses with diarrhea -lactic acids have been normal (5) End stage renal disease: Code(s): N18.6 - End stage renal disease Status: Acute Assessment and Plan: Patient with end-stage renal disease on hemodialysis -nephrology has been consulted -dialysis will be done per Nephrology (6) Hypoalbuminemia due to protein-calorie malnutrition: Code(s): E88.09 - Other disorders of plasma-protein metabolism, not elsewhere classified; E46 - Unspecified protein-calorie malnutrition Status: Acute Assessment and Plan: Continue albumin for now (7) Electrolyte abnormality: Code(s): E87.8 - Other disorders of electrolyte and fluid balance, not elsewhere classified Status: Acute Assessment and Plan: Replace potassium (8) Decubitus ulcer: Code(s): L89.90 - Pressure ulcer of unspecified site, unspecified stage Status: Acute Assessment and Plan: Wound Care has been consulted (9) Diabetes type 2, controlled: Code(s): E11.9 - Type 2 diabetes mellitus without complications Status: Acute Assessment and Plan: Continue sliding scale insulin Accu-Cheks -hemoglobin A1c on 07/30/2021 was 6.3 Plan DVT prophylaxis: HOLD Heparin SQ, due to anemia, ordered SCDs Stress ulcer prophylaxis: Protonix IV q.12 hours Nutrition: NPO for now except sepsis with oral antibiotics Discussed with patient in details regarding his health condition given as extensive medical history, he requests to be a full code and states he wants to live, he stated he will cooperate with anything that we need to do so that he can be kept alive. Patient is currently a full code. He understands that he has been having diarrhea with low blood pressures and may require a central line to which he consented if if needed Code Status: Full code Critical Care Time Spent:
--- NOTE | 2021-12-08 10:57 | PM.IMPN ---
Progress Note: A&P Assessment and Plan (1) C. difficile colitis: Code(s): A04.72 - Enterocolitis due to Clostridium difficile, not specified as recurrent Status: Acute Assessment and Plan: -patient started on PO vancomycin (12/06), added fidaxomicin (12/07) -GI following the patient (2) Pancolitis: Code(s): K51.00 - Ulcerative (chronic) pancolitis without complications Status: Acute Assessment and Plan: Appreciate GI and surgical evaluation. See plan above. Continue antibiotics. (3) Sepsis: Code(s): A41.9 - Sepsis, unspecified organism Status: Acute Assessment and Plan: Patient with hypotension, leukocytosis -source pancolitis, C diff Continue supportive care in the ICU. (4) End stage renal disease: Code(s): N18.6 - End stage renal disease Status: Acute Assessment and Plan: Patient with end-stage renal disease on hemodialysis -nephrology has been consulted -dialysis will be done per Nephrology (5) Hypoalbuminemia due to protein-calorie malnutrition: Code(s): E88.09 - Other disorders of plasma-protein metabolism, not elsewhere classified; E46 - Unspecified protein-calorie malnutrition Status: Acute Assessment and Plan: Started patient on albumin (6) Electrolyte abnormality: Code(s): E87.8 - Other disorders of electrolyte and fluid balance, not elsewhere classified Status: Acute Assessment and Plan: Monitor electrolytes (7) Decubitus ulcer: Code(s): L89.90 - Pressure ulcer of unspecified site, unspecified stage Status: Acute Assessment and Plan: Wound Care to see (8) Diabetes type 2, controlled: Code(s): E11.9 - Type 2 diabetes mellitus without complications Status: Acute Assessment and Plan: Monitor blood sugars. Insulin as needed (9) Acute hypokalemia: Code(s): E87.6 - Hypokalemia Status: Acute Subjective Date/time seen: 12/08/21 10:57 Patient reports he is feeling better Exam Narrative: General: Patient is pleasant, in no acute distress HEENT:? Dry oral mucosa, sclera is clear, pupils equal and reactive, Neck:? Supple, no lymphadenopathy Respiratory:? Adequate air entry, decreased air entry at bases otherwise clear to auscultation bilaterally Cardiac:? Regular rate and rhythm, S1-S2 is normal Abdomen:? Soft, nondistended, nontender, no guarding, normoactive bowel sounds Extremities:? Lower extremity pitting edema bilaterally, decreased pedal pulses Neuro:? Patient is awake, alert, oriented x3, nonfocal, follows simple commands in all extremities answers to questions appropriately Skin:? Bruising noted on the upper extremities, decubitus ulcers to the buttocks bilaterally Psych:? Normal affect and mentation Objective Data Vital Signs Vital Signs: Vital Signs - 24 hr 12/07/21 12:00 12/07/21 12:00 12/07/21 14:00 Temperature 97.4 F L Pulse Rate 63 63 64 Respiratory Rate 16 Blood Pressure 82/52 L Pulse Oximetry 100 Oxygen Delivery 12/07/21 12:00 12/07/21 14:00 12/07/21 16:00 Temperature Pulse Rate 64 65 Respiratory Rate 14 16 Blood Pressure 97/51 L 98/59 L Pulse Oximetry 100 100 Oxygen Delivery Room Air 12/07/21 16:00 12/07/21 16:00 12/07/21 18:00 Temperature Pulse Rate 65 71 Respiratory Rate Blood Pressure Pulse Oximetry Oxygen Delivery Room Air 12/07/21 18:00 12/07/21 20:23 12/07/21 20:26 Temperature Pulse Rate 71 69 Respiratory Rate 20 18 Blood Pressure 109/56 L Pulse Oximetry 98 97 Oxygen Delivery Room Air 12/07/21 20:33 12/07/21 20:00 12/07/21 20:00 Temperature Pulse Rate 68 71 68 Respiratory Rate 18 18 Blood Pressure Pulse Oximetry 97 Oxygen Delivery Room Air 12/07/21 20:00 12/07/21 19:01 12/07/21 20:01 Temperature 96.8 F L Pulse Rate 71 67 131 H Respiratory Rate 15 16 26 H Blood Pressure 105/75 105/49 L 105/75 Pulse Oximetry 9
--- NOTE | 2021-12-08 11:14 | PM.PNGS ---
Progress Note: A&P Assessment and Plan (1) C. difficile colitis: Code(s): A04.72 - Enterocolitis due to Clostridium difficile, not specified as recurrent Status: Acute Assessment and Plan: improving, exam benign, cont po Vanc (2) Anemia: Code(s): D64.9 - Anemia, unspecified Status: Chronic Assessment and Plan: no s/s active bleeding, transfuse per primary team Subjective Subjective Date/Time Seen: 12/08/21 11:14 much improved today, pain largely resolved, diarrhea improving Review of Systems Review of Systems: All systems reviewed & are unremarkable except as noted in HPI and below Exam Const: General: cooperative, comfortable and ill appearing Resp: Auscultation: diminished lung sounds Cardio: Rate: regular rate Rhythm: regular rhythm GI: Inspection: normal to inspection and distended GI Palp: No abdominal tenderness, Yes Soft to palpation, No Tenderness to palpation present (GI), No Guarding due to palpation present (GI) and No Rigid due to palpation Objective Data Vital Signs Vital Signs: Vital Signs - 24 hr 12/07/21 12:00 12/07/21 12:00 12/07/21 14:00 Temperature 36.3 C L Pulse Rate 63 63 64 Respiratory Rate 16 Blood Pressure 82/52 L Pulse Oximetry 100 Oxygen Delivery 12/07/21 12:00 12/07/21 14:00 12/07/21 16:00 Temperature Pulse Rate 64 65 Respiratory Rate 14 16 Blood Pressure 97/51 L 98/59 L Pulse Oximetry 100 100 Oxygen Delivery Room Air 12/07/21 16:00 12/07/21 16:00 12/07/21 18:00 Temperature Pulse Rate 65 71 Respiratory Rate Blood Pressure Pulse Oximetry Oxygen Delivery Room Air 12/07/21 18:00 12/07/21 20:23 12/07/21 20:26 Temperature Pulse Rate 71 69 Respiratory Rate 20 18 Blood Pressure 109/56 L Pulse Oximetry 98 97 Oxygen Delivery Room Air 12/07/21 20:33 12/07/21 20:00 12/07/21 20:00 Temperature Pulse Rate 68 71 68 Respiratory Rate 18 18 Blood Pressure Pulse Oximetry 97 Oxygen Delivery Room Air 12/07/21 20:00 12/07/21 19:01 12/07/21 20:01 Temperature 36.0 C L Pulse Rate 71 67 131 H Respiratory Rate 15 16 26 H Blood Pressure 105/75 105/49 L 105/75 Pulse Oximetry 95 99 95 Oxygen Delivery 12/07/21 21:01 12/07/21 21:03 12/07/21 21:06 Temperature Pulse Rate 70 69 75 Respiratory Rate 16 16 19 Blood Pressure 85/47 L 74/45 L 85/43 L Pulse Oximetry 96 97 100 Oxygen Delivery 12/07/21 21:31 12/07/21 22:00 12/07/21 22:01 Temperature Pulse Rate 69 71 70 Respiratory Rate 17 15 Blood Pressure 91/41 L 87/41 L Pulse Oximetry 95 96 Oxygen Delivery 12/07/21 22:16 12/07/21 22:31 12/07/21 23:01 Temperature Pulse Rate 69 70 70 Respiratory Rate 16 16 19 Blood Pressure 79/42 L 79/40 L 89/43 L Pulse Oximetry 96 94 96 Oxygen Delivery 12/08/21 00:00 12/08/21 00:00 12/08/21 02:00 Temperature Pulse Rate 73 70 71 Respiratory Rate 19 Blood Pressure Pulse Oximetry 96 Oxygen Delivery Room Air 12/07/21 23:31 12/08/21 00:01 12/08/21 00:31 Temperature Pulse Rate 69 74 73 Respiratory Rate 16 21 H 20 Blood Pressure 97/44 L 93/50 L 98/46 L Pulse Oximetry 96 95 97 Oxygen Delivery 12/08/21 00:44 12/08/21 00:51 12/08/21 01:01 Temperature 36.1 C L Pulse Rate 72 69 73 Respiratory Rate 21 H 21 H 18 Blood Pressure 80/51 L 87/47 L 102/53 L Pulse Oximetry 97 96 100 Oxygen Delivery 12/08/21 01:11 12/08/21 01:21 12/08/21 01:31 Temperature Pulse Rate 73 71 72 Respiratory Rate 18 17 18 Blood Pressure 101/51 L 95/55 L 93/54 L Pulse Oximetry 99 97 97 Oxygen Delivery 12/08/21 01:41 12/08/21 01:51 12/08/21 02:01 Temperature Pulse Rate 73 73 71 Respiratory Rate 17 17 16 Blood Pressure 102/47 L 108/59 L 109/50 L Pulse Oximetry 98 99 98 Oxygen Delivery 12/08/21 02:31 12/08/21 04:00 12/08/21 04:00 Temperature Pulse Rate 71 71 71 Respiratory Rate 19 19 Blood Pressure 101/55 L
[2021-12-08 11:51] LABS: Hematocrit 24.9 % (42.0-52.0); Hemoglobin 7.7 g/dL (14.0-18.0)
[2021-12-08 11:57] LABS: Potassium 3.2 mmol/L (3.4-5.0)
--- NOTE | 2021-12-08 12:14 | PM.PNNEP ---
Progress Note: A&P Assessment and Plan (1) ROEL (acute kidney injury): Code(s): N17.9 - Acute kidney failure, unspecified Status: Acute Assessment and Plan: due to ATN from infection on last hospitalization (COVID and C. diff colitis) currently dialysis dependent he has underlying CKD (see #2) and the hope is that he will recover but his ongoing C. diff colitis (as noted on this admission) may delay/impair the possibility renal recovery has dialysis dependent for almost 2 months now -- no evidence of recovery as of yet he may be heading toward ESRD given this hospitalization last HD treatment on Thursday (12/06/21) at outpatient dialysis unit plan next HD treatment tomorrow (2) Stage 3b chronic kidney disease: Code(s): N18.32 - Chronic kidney disease, stage 3b Status: Chronic Assessment and Plan: baseline creatinine usually runs ~ 1.9 - 2.5mg/dl felt to be secondary to diabetes, hypertension, vascular disease, and age based on outpatient evaluation (3) C. difficile colitis: Code(s): A04.72 - Enterocolitis due to Clostridium difficile, not specified as recurrent Status: Acute Assessment and Plan: recurrent issue/problem first diagnosed in October 2021 may have been exacerbated by recent levaquin use at [facility] (being treated for possible pnuemonia) however, he was already having diarrhea issues before this antibiotic use stool for C diff was positive on 12/06/2021 started on PO vancomycin as well as fidaxomicin Gastroenterology following using IVF hydration, albumin and Hespan to compensate for fluid losses by diarrhea (4) Anemia: Code(s): D64.9 - Anemia, unspecified Status: Chronic Assessment and Plan: significant drop in H/H this AM Gastroenterology already follwoing pain PRBC transfusion per protocol on PPI follow H/H Epogen with HD (5) Hypokalemia: Code(s): E87.6 - Hypokalemia Status: Acute Assessment and Plan: due to ongoing GI losses and poor oral intake replete as needed follow repeat K+ (6) Pancolitis: Code(s): K51.00 - Ulcerative (chronic) pancolitis without complications Status: Acute Assessment and Plan: as noted by presentation with abdominal pain and diarrhea as well as CT scan findings see #3 Gastroenterology and Surgey following on antibiotics NPO and bowel reset (7) Sepsis: Code(s): A41.9 - Sepsis, unspecified organism Status: Acute Assessment and Plan: as noted by hypotension and elevated WBC due to pancolitis and C. diff colitis on antibiotic therapy IV albumin given hypoalbuminemia and associated third spacing may need pressor therapy depending on trend of blood pressure (8) Diabetes type 2, controlled: Code(s): E11.9 - Type 2 diabetes mellitus without complications Status: Acute Assessment and Plan: follow Accu-Cheks glycemic control Will continue to follow. Subjective Date/time seen: 12/08/21 12:14 Central line placed overnight due to dropping systolic BP in the 70 - 80s but after placement, his systolic BP stabilized to > 100s; patient states he feels somewhat better but he continues to have liquid dark stools (as noted via FMS); significant drop in H/H noted by AM labs. Exam Narrative: General: ill appearing male in NAD Heart: normal S1 and S2; no rub Lungs: clear to auscultation Abdomen: soft, less TTP, nondistended, positive bowel sounds Extremities: no cyanosis or clubbing; 1+ edema Skin: warm and dry Objective Data Vital Signs Vital Signs: Vital Signs Temp Pulse Resp BP Pulse Ox O2 Del Method 12/08/21 12:00 58 L 19 100 Room Air 12/08/21 12:00 36.4 C 58 L 19 125/49 L 100 12/08/21 12:00 58 L 12/08/21 11:50 36.3 C L 57 L 19 106/62 99 12/08/21 08:00 67 18 98 Room Air 12/08/21 10:00 64 18 123/53 L 100
--- NOTE | 2021-12-08 12:14 | P.PNNP_ITS ---
Progress Note: A&P Assessment and Plan (1) ROEL (acute kidney injury): Code(s): N17.9 - Acute kidney failure, unspecified Status: Acute Assessment and Plan: * due to ATN from infection on last hospitalization (COVID and C. diff colitis) * currently dialysis dependent * he has underlying CKD (see #2) and the hope is that he will recover but his ongoing C. diff colitis (as noted on this admission) may delay/impair the possibility renal recovery * has dialysis dependent for almost 2 months now -- no evidence of recovery as of yet * he may be heading toward ESRD given this hospitalization * last HD treatment on Thursday (12/06/21) at outpatient dialysis unit * plan next HD treatment tomorrow (2) Stage 3b chronic kidney disease: Code(s): N18.32 - Chronic kidney disease, stage 3b Status: Chronic Assessment and Plan: * baseline creatinine usually runs ~ 1.9 - 2.5mg/dl * felt to be secondary to diabetes, hypertension, vascular disease, and age based on outpatient evaluation (3) C. difficile colitis: Code(s): A04.72 - Enterocolitis due to Clostridium difficile, not specified as recurrent Status: Acute Assessment and Plan: * recurrent issue/problem * first diagnosed in October 2021 * may have been exacerbated by recent levaquin use at [facility] (being treated for possible pnuemonia) * however, he was already having diarrhea issues before this antibiotic use * stool for C diff was positive on 12/06/2021 * started on PO vancomycin as well as fidaxomicin * Gastroenterology following * using IVF hydration, albumin and Hespan to compensate for fluid losses by diarrhea (4) Anemia: Code(s): D64.9 - Anemia, unspecified Status: Chronic Assessment and Plan: * significant drop in H/H this AM * Gastroenterology already follwoing pain * PRBC transfusion per protocol * on PPI * follow H/H * Epogen with HD (5) Hypokalemia: Code(s): E87.6 - Hypokalemia Status: Acute Assessment and Plan: * due to ongoing GI losses and poor oral intake * replete as needed * follow repeat K+ (6) Pancolitis: Code(s): K51.00 - Ulcerative (chronic) pancolitis without complications Status: Acute Assessment and Plan: * as noted by presentation with abdominal pain and diarrhea as well as CT scan findings * see #3 * Gastroenterology and Surgey following * on antibiotics * NPO and bowel reset (7) Sepsis: Code(s): A41.9 - Sepsis, unspecified organism Status: Acute Assessment and Plan: * as noted by hypotension and elevated WBC * due to pancolitis and C. diff colitis * on antibiotic therapy * IV albumin given hypoalbuminemia and associated third spacing * may need pressor therapy depending on trend of blood pressure (8) Diabetes type 2, controlled: Code(s): E11.9 - Type 2 diabetes mellitus without complications Status: Acute Assessment and Plan: * follow Accu-Cheks * glycemic control Will continue to follow. Subjective Date/time seen: 12/08/21 12:14 Central line placed overnight due to dropping systolic BP in the 70 - 80s but after placement, his systolic BP stabilized to > 100s; patient states he feels somewhat better but he continues to have liquid dark stools (as noted via FMS); significant drop in H/H noted by AM labs. Exam Narrative: General: ill appearing male in NAD Heart: normal S1 and S2; no rub Lungs: c
[2021-12-08 13:13] LABS: Glucose Point of Care 76 mg/dl (65-105)
[2021-12-08] MEDS: HYDROcodone/acetaminophen (*CRX) 5-325 MG TABLET 1 TAB PO (14:42)
[2021-12-08 18:54] LABS: Glucose Point of Care 72 mg/dl (65-105)
[2021-12-08 18:57] LABS: Glucose Point of Care 68 mg/dl (65-105)
[2021-12-08 20:28] LABS: Basophils Percent Auto 0.2 % (0.2-1.2); Eosinophils Absolute Auto 0.1 K/mm3 (0-0.3); Eosinophils Percent Auto 0.5 % (0-4.4); Immature Granulocyte Absolute 0.89 K/mm3 (0.00-0.031); Immature Granulocyte Percent A 7.3 % (0-0.5); Lymphocytes Percent Auto 13.1 % (18.3-44.2); Mean Corpuscular HGB Conc 30.9 g/dl (32-36); Mean Corpuscular Hemoglobin 30.6 pg (26-34); Mean Corpuscular Volume 99.1 fl (80-100); Monocytes Absolute Auto 0.7 K/mm3 (0.1-0.6); Monocytes Percent Auto 5.9 % (2.6-8.5); Neutrophils Absolute Auto 8.9 K/mm3 (1.3-6.7); Platelet Count Result 173 k/mm3 (150-375); Red Blood Count 2.22 M/mm3 (4.6-6.20); Red Cell Distribution Width 19.7 % (11.5-14.5); White Blood Count 12.2 K/mm3 (4.5-10.0)
[2021-12-08 20:41] LABS: Hemoglobin 6.8 g/dL (14.0-18.0)
[2021-12-08 20:42] LABS: Anisocytosis 3+ (NORMAL); Hypochromasia 1+ (NORMAL); Platelet Estimate Adequate (Adequate)
[2021-12-09] VITALS (32 sets, daily range): BP systolic 108–142; BP diastolic 43–66; PULSE 52–82; RESP 16–20; TEMP 36–37.2; O2SAT 95–100
[2021-12-09] MEDS: ALBUMIN HUMAN 25% 25 GM/100 ML 100 ML IVPB ×5 (00:12→23:53)
[2021-12-09] MEDS: VANCOMYCIN ORAL 500 MG/10 ML SYRUP PO ×5 (00:12→23:48)
[2021-12-09 00:19] LABS: Glucose Point of Care 71 mg/dl (65-105)
[2021-12-09] MEDS: CENTRAL LINE FLUSH 10 ML IV PUSH ×4 (05:26→21:05)
[2021-12-09 05:47] LABS: Basophils Percent Auto 0.2 % (0.2-1.2); Eosinophils Percent Auto 0.4 % (0-4.4); Hemoglobin 8.1 g/dL (14.0-18.0); Immature Granulocyte Absolute 0.72 K/mm3 (0.00-0.031); Immature Granulocyte Percent A 6.5 % (0-0.5); Lymphocytes Absolute Auto 1.19 K/mm3 (0.9-3.2); Lymphocytes Percent Auto 10.8 % (18.3-44.2); Mean Corpuscular HGB Conc 31.2 g/dl (32-36); Mean Corpuscular Hemoglobin 30.9 pg (26-34); Mean Corpuscular Volume 99.2 fl (80-100); Mean Platelet Volume 9.5 fl (7.4-10.4); Monocytes Absolute Auto 0.7 K/mm3 (0.1-0.6); Monocytes Percent Auto 6.3 % (2.6-8.5); Neutrophils Absolute Auto 8.4 K/mm3 (1.3-6.7); Neutrophils Percent Auto 75.8 % (45.5-73.1); Platelet Count Result 162 k/mm3 (150-375); Red Blood Count 2.62 M/mm3 (4.6-6.20); Red Cell Distribution Width 18.9 % (11.5-14.5); White Blood Count 11.1 K/mm3 (4.5-10.0)
[2021-12-09 05:58] LABS: Anisocytosis 1+ (NORMAL); Hypochromasia 2+ (NORMAL); Ovalocytes 1+ (NORMAL); Platelet Estimate Adequate (Adequate)
[2021-12-09 05:59] LABS: Burr Cells 1+ (NORMAL)
[2021-12-09 06:05] LABS: Albumin Level 2.3 g/dL (3.5-5.1); Alkaline Phosphatase 35 U/L (38-126); Anion Gap 16 mmol/L (8-16); Aspartate Amino Transferase 15 U/L (17-59); Bilirubin,Total 0.6 mg/dL (0.2-1.3); Blood Urea Nitrogen 7 mg/dL (9-20); Calcium 7.2 mg/dL (8.4-10.2); Carbon Dioxide 19 mmol/L (22-30); Chloride 106 mmol/L (98-107); Estimated CRCL calculation 23 ml/min; Estimated Glomerular Filt Rate 24; Glucose 73 mg/dL (65-110); Phosphorus 2.2 mg/dL (2.5-4.5); Sodium 141 mmol/L (137-145)
[2021-12-09 06:35] LABS: Alanine Aminotransferase < 4 U/L (6-50)
[2021-12-09 06:35] LABS: Hepatitis B Surface Antigen Negative (Negative)
[2021-12-09 06:53] LABS: Hepatitis B Surface Anti Res Negative
[2021-12-09] MEDS: GABAPENTIN 300 MG CAPSULE PO ×2 (08:30→17:52)
[2021-12-09] MEDS: PANTOPRAZOLE SODIUM IV 40 MG VIAL IV PUSH ×2 (08:30→20:57)
[2021-12-09] MEDS: ACIDOPHILUS/BULGARICUS CHEWABLE TABLET 1 TABLET PO ×2 (08:30→17:52)
[2021-12-09] MEDS: MIDODRINE HCL 10 MG TABLET PO ×3 (08:30→17:52)
[2021-12-09] MEDS: FIDAXOMICIN 200 MG TABLET PO ×2 (08:30→20:57)
[2021-12-09] MEDS: POTASSIUM CHLORIDE 20 MEQ PACKET (FOR LIQUID) PO (08:30)
[2021-12-09] MEDS: KCL 40 MEQ/WATER 100 ML 100 ML 25 ML IVPB (08:31)
[2021-12-09] MEDS: EUCERIN CREAM 120 GM JAR 1 APPLIC TOPICAL (08:31)
[2021-12-09 08:33] LABS: Mean Platelet Volume 8.7 fl (7.4-10.4); Platelet Count Result 136 k/mm3 (150-375)
--- NOTE | 2021-12-09 08:38 | WPDINTPN ---
Progress Note: A&P Assessment and Plan (1) Anemia: Code(s): D64.9 - Anemia, unspecified Status: Chronic Assessment and Plan: 12/08/2021: Patient dropped his hemoglobin to 5.4 and repeat was 6.8 minute of packed RBC, stool in the FMS is dark in color. Also likely due to left neck hematoma -GI following the patient -patient transfused 2 units of packed RBCs on 12/08/2021 -INR was 1.2 (on 12/06/2021) -already on Protonix IV q.12 hours -GI feels that anemia secondary to left neck hematoma -obtain DIC panel, -ordered CT scan of the neck and soft tissues (2) C. difficile colitis: Code(s): A04.72 - Enterocolitis due to Clostridium difficile, not specified as recurrent Status: Acute Assessment and Plan: Recurrent C diff, patient had C diff in October 2021 -he was recently on [facility] for [facility] -diarrhea increased after he took the antibiotics -stool for C diff was positive on 12/06/2021 -patient started on PO vancomycin (12/06), added fidaxomicin (12/07) -GI following the patient -abdominal pain much improved this morning -GI okay for diet, start clear liquid diet and advance as tolerated to diabetic and heart healthy diet (3) Pancolitis: Code(s): K51.00 - Ulcerative (chronic) pancolitis without complications Status: Acute Assessment and Plan: Patient presented with abdominal pain, diarrhea -stool for C diff was positive -appreciate GI and surgery evaluation, both recommend supportive management -diarrhea is improved, patient has a fecal management system in place -continue antibiotics as above -will start clear liquid diet and evaluate -no need for NG tube at this time 12/06/2021 CT scan of the abdomen and pelvis: Showed mild diffuse colonic wall thickening consistent with brandt colitis, all bilateral pleural effusions and small amount of ascites in the abdomen and pelvis (4) Sepsis: Code(s): A41.9 - Sepsis, unspecified organism Status: Acute Assessment and Plan: RESOLVED Patient with hypotension, leukocytosis. -source pancolitis, C diff, hypovolemia -stool for C diff was positive on 12/06/2021 -continue p.o. vancomycin and fidaxomicin -patient's systolic blood pressures run in the 100s, right femoral central line was placed on 12/08/2021 outside laborer -continue albumin -patient has end-stage renal disease on dialysis, will try to match fluid losses with diarrhea -lactic acids have been normal (5) End stage renal disease: Code(s): N18.6 - End stage renal disease Status: Acute Assessment and Plan: Patient with end-stage renal disease on hemodialysis -nephrology has been consulted -dialysis will be done per Nephrology (6) Hypoalbuminemia due to protein-calorie malnutrition: Code(s): E88.09 - Other disorders of plasma-protein metabolism, not elsewhere classified; E46 - Unspecified protein-calorie malnutrition Status: Acute Assessment and Plan: Blood pressures much improved, discontinue albumin after evening dose (7) Electrolyte abnormality: Code(s): E87.8 - Other disorders of electrolyte and fluid balance, not elsewhere classified Status: Acute Assessment and Plan: Replace potassium (8) Decubitus ulcer: Code(s): L89.90 - Pressure ulcer of unspecified site, unspecified stage Status: Acute Assessment and Plan: Wound Care has been consulted (9) Diabetes type 2, controlled: Code(s): E11.9 - Type 2 diabetes mellitus without complications Status: Acute Assessment and Plan: Continue sliding scale insulin Accu-Cheks -hemoglobin A1c on 07/30/2021 was 6.3 (10) Hematoma of neck: Code(s): S10.93XA - Contusion of unspecified part of neck, initial encounter Status: Acute Assessment and Plan: Patient has a left neck hematoma, likely from central line access which was unsuccessful -will obtain CT of neck an
[2021-12-09 08:43] LABS: Magnesium 1.9 mg/dL (1.6-2.3)
[2021-12-09 08:58] LABS: INR 1.9; Prothrombin Time 20.7 Seconds (11.1-14.7)
[2021-12-09 08:59] LABS: Partial Thromboplastin Time 46.2 SECONDS (22.3-36.8)
[2021-12-09] MEDS: ALBUTEROL SULFATE NEB 2.5 MG/3 ML INH INHALATION (09:08)
[2021-12-09 09:24] LABS: Fibrinogen 119 mg/dl (215-510)
[2021-12-09 09:25] LABS: D Dimer 4.33 ug/mL (<0.48)
--- NOTE | 2021-12-09 09:25 | WPDGIPROGNO ---
Progress Note: A&P Assessment and Plan (1) C. difficile colitis: Code(s): A04.72 - Enterocolitis due to Clostridium difficile, not specified as recurrent Status: Acute Assessment and Plan: Patient with significant ongoing diarrhea. No evidence of significant GI blood loss. Although stool was Hemoccult positive consistent with his pancolitis and C Difficile infection. Plan to continue oral vancomycin. I understand that Dificid was added, and probably of no significant additional benefit. Will add Questran attempt to minimize diarrhea. (2) Decubitus ulcer: Code(s): L89.90 - Pressure ulcer of unspecified site, unspecified stage Status: Acute (3) Hematoma of neck: Code(s): S10.93XA - Contusion of unspecified part of neck, initial encounter Status: Acute Assessment and Plan: Patient is developed rather large hematoma on the left side of his neck this a doubly contributes to his ongoing anemia at this point. Watch for signs of additional bleeding or enlargement. (4) Anemia: Code(s): D64.9 - Anemia, unspecified Status: Chronic Assessment and Plan: Anemia peers to be multifactorial with underlying chronic kidney disease patient has developed hematoma which has made the anemia worse. No signs for significant GI blood loss. At this time. Subjective Date/time seen: 12/09/21 09:25 Patient continues to have significant ongoing watery diarrhea. Fecal tube in place. Nothing but watery greenish stool obtain. Patient now complains of left neck pain where he is developed rather significant hematoma after attempts at central line placement. On liquid diet been anxious for more solid foods. Review of Systems Review of Systems: Review of systems noncontributory. Exam Narrative: Physical exam reveals patient be alert. Vital signs stable. HEENT exam reveals no icterus. His neck reveals a rather large hematoma in the area where previous central line was attempted to be placed. Lungs are clear. Abdomen soft. Bowel sounds present nontender. Objective Data Vital Signs Vital Signs: Vital Signs - 24 hr 12/08/21 09:30 12/08/21 10:00 12/08/21 10:00 Temperature 97.5 F L Pulse Rate 56 L 64 64 Respiratory Rate 19 18 Blood Pressure 105/65 123/53 L Pulse Oximetry 100 100 Oxygen Delivery 12/08/21 11:50 12/08/21 12:00 12/08/21 12:00 Temperature 97.4 F L 97.6 F Pulse Rate 57 L 58 L 58 L Respiratory Rate 19 19 Blood Pressure 106/62 125/49 L Pulse Oximetry 99 100 Oxygen Delivery 12/08/21 12:00 12/08/21 14:00 12/08/21 14:00 Temperature Pulse Rate 58 L 57 L 57 L Respiratory Rate 19 21 H Blood Pressure 117/46 L Pulse Oximetry 100 98 Oxygen Delivery Room Air 12/08/21 14:34 12/08/21 16:00 12/08/21 18:00 Temperature Pulse Rate 55 L 55 L Respiratory Rate Blood Pressure Pulse Oximetry 97 Oxygen Delivery Room Air 12/08/21 16:00 12/08/21 18:00 12/08/21 16:00 Temperature 98.1 F Pulse Rate 55 L 55 L 55 L Respiratory Rate 15 17 15 Blood Pressure 114/41 L 128/45 L Pulse Oximetry 98 99 98 Oxygen Delivery Room Air 12/08/21 20:09 12/08/21 20:00 12/08/21 20:00 Temperature Pulse Rate 56 L 56 L 56 L Respiratory Rate 14 14 Blood Pressure Pulse Oximetry 99 Oxygen Delivery Room Air 12/08/21 21:47 12/08/21 22:09 12/08/21 20:00 Temperature 97.3 F L 97.4 F L 97.3 F L Pulse Rate 57 L 57 L 56 L Respiratory Rate 15 17 17 Blood Pressure 113/52 L 121/42 L 124/44 L Pulse Oximetry 98 97 99 Oxygen Delivery 12/08/21 22:00 12/09/21 00:00 12/09/21 00:00 Temperature Pulse Rate 57 L 52 L 57 L Respiratory Rate 17 Blood Pressure Pulse Oximetry 97 Oxygen Delivery Room Air 12/08/21 23:09 12/09/21 00:09 12/09/21 01:24 Temperature 97.3 F L 97.5 F L 97.3 F L Pulse Rate 56 L 57 L 59 L Respiratory Rate 19 16 17 Blood Pressure 105/45 L 122/43 L 121/46 L Pulse Oximetry 100
[2021-12-09] MEDS: ACETAMINOPHEN 325 MG TABLET 650 MG PO (09:36)
--- NOTE | 2021-12-09 10:44 | P.PNNP_ITS ---
Progress Note: A&P Assessment and Plan (1) ROEL (acute kidney injury): Code(s): N17.9 - Acute kidney failure, unspecified Status: Acute Assessment and Plan: * due to ATN from infection on last hospitalization (COVID and C. diff colitis) * currently dialysis dependent * he will get another treatment today. (2) Stage 3b chronic kidney disease: Code(s): N18.32 - Chronic kidney disease, stage 3b Status: Chronic Assessment and Plan: * baseline creatinine usually runs ~ 1.9 - 2.5mg/dl * felt to be secondary to diabetes, hypertension, vascular disease, and age based on outpatient evaluation * He may have had some chronic progression but also because of the underlying CKD, he may not bounce back from this episode of ATN and so may remain on dialysis. Time will tell. (3) C. difficile colitis: Code(s): A04.72 - Enterocolitis due to Clostridium difficile, not specified as recurrent Status: Acute Assessment and Plan: * recurrent issue/problem * first diagnosed in October 2021 * may have been exacerbated by recent levaquin use at [facility] (being treated for possible pnuemonia) * however, he was already having diarrhea issues before this antibiotic use * stool for C diff was positive on 12/06/2021 * started on PO vancomycin as well as fidaxomicin , as well as clear liquid diet. * Dr. Slade following (4) Anemia: Code(s): D64.9 - Anemia, unspecified Status: Chronic Assessment and Plan: * significant drop in H/H from 8.0-5.4, up to 7.7 then dropped to 6.8 again. Now up to 8.1. * Gastroenterology already following * PRBC transfusion per protocol * on PPI * follow H/H * Continue Epogen with HD * check a reticulocyte count to make sure he is responding to this dose of EPO Leticia. (5) Hypokalemia: Code(s): E87.6 - Hypokalemia Status: Acute Assessment and Plan: * due to ongoing GI losses and poor oral intake * replete as needed * Potassium still low this morning. He received another round of potassium chloride. (6) Pancolitis: Code(s): K51.00 - Ulcerative (chronic) pancolitis without complications Status: Acute Assessment and Plan: * as noted by presentation with abdominal pain and diarrhea as well as CT scan findings * see #3 * Gastroenterology and Surgey following * on antibiotics * Clear liquids and bowel reset (7) Sepsis: Code(s): A41.9 - Sepsis, unspecified organism Status: Acute Assessment and Plan: * as noted by hypotension and elevated WBC * due to pancolitis and C. diff colitis * on antibiotic therapy * blood pressure is doing better. He is no longer on norepinephrine , but he is on midodrine. (8) Diabetes type 2, controlled: Code(s): E11.9 - Type 2 diabetes mellitus without complications Status: Acute Assessment and Plan: * management per hospitalists and outpatient interviewing clerk. Subjective Date/time seen: 12/09/21 10:44 Interval history: Miky is feeling about the same today. No chest pain or shortness of breath he is hungry. He is on a clear liquid diet. I will eat anything I get he is still having significant amount of liquid stool. He has a FMS in place. Exam Narrative: General: ill appearing male in NAD Heart: normal S1 and S2; no rub or gallop Lungs: clear to auscultation Abdomen: soft, less TTP, nondistended, positive bowel sounds Extremities
--- NOTE | 2021-12-09 10:44 | PM.PNNEP ---
Progress Note: A&P Assessment and Plan (1) ROEL (acute kidney injury): Code(s): N17.9 - Acute kidney failure, unspecified Status: Acute Assessment and Plan: due to ATN from infection on last hospitalization (COVID and C. diff colitis) currently dialysis dependent he will get another treatment today. (2) Stage 3b chronic kidney disease: Code(s): N18.32 - Chronic kidney disease, stage 3b Status: Chronic Assessment and Plan: baseline creatinine usually runs ~ 1.9 - 2.5mg/dl felt to be secondary to diabetes, hypertension, vascular disease, and age based on outpatient evaluation He may have had some chronic progression but also because of the underlying CKD, he may not bounce back from this episode of ATN and so may remain on dialysis. Time will tell. (3) C. difficile colitis: Code(s): A04.72 - Enterocolitis due to Clostridium difficile, not specified as recurrent Status: Acute Assessment and Plan: recurrent issue/problem first diagnosed in October 2021 may have been exacerbated by recent levaquin use at skilled nursing (being treated for possible pnuemonia) however, he was already having diarrhea issues before this antibiotic use stool for C diff was positive on 12/06/2021 started on PO vancomycin as well as fidaxomicin , as well as clear liquid diet. Dr. Slade following (4) Anemia: Code(s): D64.9 - Anemia, unspecified Status: Chronic Assessment and Plan: significant drop in H/H from 8.0-5.4, up to 7.7 then dropped to 6.8 again. Now up to 8.1. Gastroenterology already following PRBC transfusion per protocol on PPI follow H/H Continue Epogen with HD check a reticulocyte count to make sure he is responding to this dose of EPO Leticia. (5) Hypokalemia: Code(s): E87.6 - Hypokalemia Status: Acute Assessment and Plan: due to ongoing GI losses and poor oral intake replete as needed Potassium still low this morning. He received another round of potassium chloride. (6) Pancolitis: Code(s): K51.00 - Ulcerative (chronic) pancolitis without complications Status: Acute Assessment and Plan: as noted by presentation with abdominal pain and diarrhea as well as CT scan findings see #3 Gastroenterology and Surgey following on antibiotics Clear liquids and bowel reset (7) Sepsis: Code(s): A41.9 - Sepsis, unspecified organism Status: Acute Assessment and Plan: as noted by hypotension and elevated WBC due to pancolitis and C. diff colitis on antibiotic therapy blood pressure is doing better. He is no longer on norepinephrine , but he is on midodrine. (8) Diabetes type 2, controlled: Code(s): E11.9 - Type 2 diabetes mellitus without complications Status: Acute Assessment and Plan: management per hospitalists and creative intern. Subjective Date/time seen: 12/09/21 10:44 Interval history: Miky is feeling about the same today. No chest pain or shortness of breath he is hungry. He is on a clear liquid diet. I will eat anything I get he is still having significant amount of liquid stool. He has a FMS in place. Exam Narrative: General: ill appearing male in NAD Heart: normal S1 and S2; no rub or gallop Lungs: clear to auscultation Abdomen: soft, less TTP, nondistended, positive bowel sounds Extremities: trace to 1+ edema Skin: no rash Objective Data Vital Signs Vital Signs: Vital Signs - 24 hr 12/08/21 11:50 12/08/21 12:00 12/08/21 12:00 Temperature 36.3 C L 36.4 C Pulse Rate 57 L 58 L 58 L Respiratory Rate 19 19 Blood Pressure 106/62 125/49 L Pulse Oximetry 99 100 Oxygen Delivery 12/08/21 12:00 12/08/21 14:00 12/08/21 14:00 Temperature Pulse Rate 58 L 57 L 57 L Respiratory Rate 19 21 H Blood Pressure 117/46 L Pulse Oximetry 100 98 Oxygen Delivery Room Air
[2021-12-09 11:06] LABS: Immature Reticulocyte Fraction 26.9 % (3.0-15.9); Reticulocyte Hemoglobin Conten 31.1 pg (28.2-35.7); Reticulocyte Percent 2.73 % (0.7-4.3); Reticulocytes Absolute 0.07 B/L (32.2-175.7)
--- NOTE | 2021-12-09 11:27 | PM.IMPN ---
Progress Note: A&P Assessment and Plan (1) C. difficile colitis: Code(s): A04.72 - Enterocolitis due to Clostridium difficile, not specified as recurrent Status: Acute Assessment and Plan: -patient started on PO vancomycin (12/06) -GI following the patient (2) Pancolitis: Code(s): K51.00 - Ulcerative (chronic) pancolitis without complications Status: Acute Assessment and Plan: Appreciate GI and surgical evaluation. See plan above. Continue antibiotics. (3) Sepsis: Code(s): A41.9 - Sepsis, unspecified organism Status: Acute Assessment and Plan: Improved (4) End stage renal disease: Code(s): N18.6 - End stage renal disease Status: Acute Assessment and Plan: Patient with end-stage renal disease on hemodialysis -nephrology has been consulted -dialysis will be done per Nephrology (5) Hypoalbuminemia due to protein-calorie malnutrition: Code(s): E88.09 - Other disorders of plasma-protein metabolism, not elsewhere classified; E46 - Unspecified protein-calorie malnutrition Status: Acute Assessment and Plan: Started patient on albumin (6) Electrolyte abnormality: Code(s): E87.8 - Other disorders of electrolyte and fluid balance, not elsewhere classified Status: Acute Assessment and Plan: Monitor electrolytes (7) Decubitus ulcer: Code(s): L89.90 - Pressure ulcer of unspecified site, unspecified stage Status: Acute Assessment and Plan: Wound Care to see (8) Diabetes type 2, controlled: Code(s): E11.9 - Type 2 diabetes mellitus without complications Status: Acute Assessment and Plan: Monitor blood sugars. Insulin as needed (9) Acute hypokalemia: Code(s): E87.6 - Hypokalemia Status: Acute Subjective Date/time seen: 12/09/21 11:27 No new complaints. Still having some loose stools but improved Exam Narrative: General: Patient is pleasant, in no acute distress HEENT:? Moist, sclera is clear, pupils equal and reactive, Neck:? Large left-sided hematoma with discoloration of the skin and induration, tenderness to palpation Respiratory:? Adequate air entry, decreased air entry at bases otherwise clear to auscultation bilaterally Cardiac:? Regular rate and rhythm, S1-S2 is normal Abdomen:? Soft, nondistended, nontender, no guarding, normoactive bowel sounds Extremities:? Lower extremity pitting edema bilaterally, decreased pedal pulses Neuro:? Patient is awake, alert, oriented x3, nonfocal, follows simple commands in all extremities answers to questions appropriately Skin:? Bruising noted on the upper extremities, decubitus ulcers to the buttocks bilaterally Psych:? Normal affect and mentation Objective Data Vital Signs Vital Signs: Vital Signs - 24 hr 12/08/21 11:50 12/08/21 12:00 12/08/21 12:00 Temperature 97.4 F L 97.6 F Pulse Rate 57 L 58 L 58 L Respiratory Rate 19 19 Blood Pressure 106/62 125/49 L Pulse Oximetry 99 100 Oxygen Delivery 12/08/21 12:00 12/08/21 14:00 12/08/21 14:00 Temperature Pulse Rate 58 L 57 L 57 L Respiratory Rate 19 21 H Blood Pressure 117/46 L Pulse Oximetry 100 98 Oxygen Delivery Room Air 12/08/21 14:34 12/08/21 16:00 12/08/21 18:00 Temperature Pulse Rate 55 L 55 L Respiratory Rate Blood Pressure Pulse Oximetry 97 Oxygen Delivery Room Air 12/08/21 16:00 12/08/21 18:00 12/08/21 16:00 Temperature 98.1 F Pulse Rate 55 L 55 L 55 L Respiratory Rate 15 17 15 Blood Pressure 114/41 L 128/45 L Pulse Oximetry 98 99 98 Oxygen Delivery Room Air 12/08/21 20:09 12/08/21 20:00 12/08/21 20:00 Temperature Pulse Rate 56 L 56 L 56 L Respiratory Rate 14 14 Blood Pressure Pulse Oximetry 99 Oxygen Delivery Room Air 12/08/21 21:47 12/08/21 22:09 12/08/21 20:00 Temperature 97.3 F L 97.4 F L 97.3 F L Pulse Rate 57 L 57 L 56 L Respiratory Rate 15 17 17 Blood Pres
[2021-12-09 12:24] LABS: Glucose Point of Care 76 mg/dl (65-105)
--- NOTE | 2021-12-09 12:29 | PM.PNGS ---
Progress Note: A&P Assessment and Plan (1) C. difficile colitis: Code(s): A04.72 - Enterocolitis due to Clostridium difficile, not specified as recurrent Status: Acute Assessment and Plan: improving, cont po abx, exam benign (2) Hematoma of neck: Code(s): S10.93XA - Contusion of unspecified part of neck, initial encounter Status: Acute Assessment and Plan: getting PRBC, agree c [facility], cont to follow Subjective Subjective Date/Time Seen: 12/09/21 12:29 no acute issues, reports abd pain resolved, no c L neck hematoma Review of Systems Review of Systems: All systems reviewed & are unremarkable except as noted in HPI and below Exam Const: General: cooperative, comfortable, no acute distress and ill appearing HENMT: Other: mod sized L neck hematoma Resp: Auscultation: diminished lung sounds Cardio: Rate: regular rate Rhythm: regular rhythm GI: Inspection: normal to inspection and non-distended GI Palp: No abdominal tenderness, Yes Soft to palpation, No Tenderness to palpation present (GI), No Guarding due to palpation present (GI) and No Rigid due to palpation Objective Data Vital Signs Vital Signs: Vital Signs - 24 hr 12/08/21 14:00 12/08/21 14:00 12/08/21 14:34 Temperature Pulse Rate 57 L 57 L Respiratory Rate 21 H Blood Pressure 117/46 L Pulse Oximetry 98 97 Oxygen Delivery Room Air 12/08/21 16:00 12/08/21 18:00 12/08/21 16:00 Temperature 36.7 C Pulse Rate 55 L 55 L 55 L Respiratory Rate 15 Blood Pressure 114/41 L Pulse Oximetry 98 Oxygen Delivery 12/08/21 18:00 12/08/21 16:00 12/08/21 20:09 Temperature Pulse Rate 55 L 55 L 56 L Respiratory Rate 17 15 14 Blood Pressure 128/45 L Pulse Oximetry 99 98 Oxygen Delivery Room Air 12/08/21 20:00 12/08/21 20:00 12/08/21 21:47 Temperature 36.3 C L Pulse Rate 56 L 56 L 57 L Respiratory Rate 14 15 Blood Pressure 113/52 L Pulse Oximetry 99 98 Oxygen Delivery Room Air 12/08/21 22:09 12/08/21 20:00 12/08/21 22:00 Temperature 36.3 C L 36.3 C L Pulse Rate 57 L 56 L 57 L Respiratory Rate 17 17 Blood Pressure 121/42 L 124/44 L Pulse Oximetry 97 99 Oxygen Delivery 12/09/21 00:00 12/09/21 00:00 12/08/21 23:09 Temperature 36.3 C L Pulse Rate 52 L 57 L 56 L Respiratory Rate 17 19 Blood Pressure 105/45 L Pulse Oximetry 97 100 Oxygen Delivery Room Air 12/09/21 00:09 12/09/21 01:24 12/09/21 02:00 Temperature 36.4 C L 36.3 C L Pulse Rate 57 L 59 L 58 L Respiratory Rate 16 17 Blood Pressure 122/43 L 121/46 L Pulse Oximetry 98 96 Oxygen Delivery 12/09/21 02:00 12/09/21 04:00 12/09/21 04:00 Temperature Pulse Rate 58 L 56 L 58 L Respiratory Rate 17 17 Blood Pressure 118/44 L Pulse Oximetry 96 96 Oxygen Delivery Room Air 12/09/21 04:00 12/09/21 06:00 12/09/21 06:00 Temperature 36.6 C Pulse Rate 56 L 60 60 Respiratory Rate 17 16 Blood Pressure 117/45 L 130/49 L Pulse Oximetry 95 98 Oxygen Delivery 12/09/21 09:10 12/09/21 09:10 12/09/21 09:22 Temperature Pulse Rate 59 L 62 Respiratory Rate 20 20 Blood Pressure Pulse Oximetry 100 Oxygen Delivery Room Air 12/09/21 08:00 12/09/21 08:00 12/09/21 08:00 Temperature 36.7 C Pulse Rate 61 62 Respiratory Rate 19 Blood Pressure 127/53 L Pulse Oximetry 98 98 Oxygen Delivery Room Air 12/09/21 10:00 12/09/21 10:00 12/09/21 12:03 Temperature 36.8 C Pulse Rate 57 L 59 L 60 Respiratory Rate 17 18 Blood Pressure 121/50 L 126/52 L Pulse Oximetry 98 98 Oxygen Delivery 12/09/21 12:00 12/09/21 12:23 Temperature 36.8 C 36.8 C Pulse Rate 61 61 Respiratory Rate 18 16 Blood Pressure 126/52 L 142/56 H Pulse Oximetry 99 98 Oxygen Delivery Intake/Output Intake/Output: Intake & Output 12/06/21 12/07/21 12/08/21 12/09/21 23:59 23:59 23:59 23:59 Intake Total 500 4750 900 699 Output Total 0 500 100 Balance 500
--- NOTE | 2021-12-09 14:00 | PC.NURSE ---
Patient taken to dialysis; report given to Manda NUNEZ on [facility] for patient to transfer to [facility] after dialysis; pvc monitor on; personal belongings sent to [facility]
[2021-12-09] MEDS: EPOETIN ALFA-EPBX 10,000 UNITS/ML VIAL 10000 UNITS IV PUSH (15:11)
[2021-12-09 18:05] LABS: Glucose Point of Care 118 mg/dl (65-105)
[2021-12-09] MEDS: ALBUTEROL SULFATE NEB 2.5 MG/0.5 ML INH (19:54)
[2021-12-09 19:55] LABS: Glucose Point of Care 105 mg/dl (65-105)
[2021-12-10] VITALS (13 sets, daily range): BP systolic 119–138; BP diastolic 50–75; PULSE 61–81; RESP 16–20; TEMP 36.3–36.9; O2SAT 97–100
[2021-12-10] MEDS: ACETAMINOPHEN 325 MG TABLET 650 MG PO (00:46)
[2021-12-10] MEDS: ALBUMIN HUMAN 25% 25 GM/100 ML 100 ML IVPB (05:35)
[2021-12-10] MEDS: HYDROcodone/acetaminophen (*CRX) 5-325 MG TABLET 2 TAB PO (05:36)
[2021-12-10] MEDS: VANCOMYCIN ORAL 500 MG/10 ML SYRUP PO ×3 (05:36→18:24)
[2021-12-10] MEDS: CENTRAL LINE FLUSH 10 ML IV PUSH ×3 (05:36→20:45)
[2021-12-10] MEDS: MIDODRINE HCL 10 MG TABLET PO ×3 (08:25→18:24)
[2021-12-10] MEDS: EUCERIN CREAM 120 GM JAR 1 APPLIC TOPICAL (08:25)
[2021-12-10] MEDS: FIDAXOMICIN 200 MG TABLET PO ×2 (08:25→20:45)
[2021-12-10] MEDS: GABAPENTIN 300 MG CAPSULE PO ×2 (08:25→18:24)
[2021-12-10] MEDS: PANTOPRAZOLE SODIUM IV 40 MG VIAL IV PUSH ×2 (08:25→20:45)
[2021-12-10] MEDS: ACIDOPHILUS/BULGARICUS CHEWABLE TABLET 1 TABLET PO ×2 (08:25→18:24)
[2021-12-10 08:31] LABS: Glucose Point of Care 103 mg/dl (65-105)
--- NOTE | 2021-12-10 08:51 | WPDGIPROGNO ---
Progress Note: A&P Assessment and Plan (1) C. difficile colitis: Code(s): A04.72 - Enterocolitis due to Clostridium difficile, not specified as recurrent Status: Acute Assessment and Plan: Patient with ongoing C difficile diarrhea. Questran was added to attempt to improve diarrhea. Will continue broad-spectrum antibiotics. Currently vancomycin orally. Allow diet as tolerated. May add some fiber to bulk up his stool as well. (2) Decubitus ulcer: Code(s): L89.90 - Pressure ulcer of unspecified site, unspecified stage Status: Acute (3) End stage renal disease: Code(s): N18.6 - End stage renal disease Status: Acute (4) Hematoma of neck: Code(s): S10.93XA - Contusion of unspecified part of neck, initial encounter Status: Acute Assessment and Plan: Large hematoma neck appears to account for recent decline in hemoglobin. Plan to monitor hemoglobin. Caution with anticoagulation. Subjective Date/time seen: 12/10/21 08:51 Patient continues to complain of neck pain were hematoma is present. Ongoing diarrhea reported fecal containment bag still in place. No obvious GI blood loss. Review of Systems Review of Systems: Review of systems noncontributory. Exam Narrative: Physical exam reveals patient to be alert. Vital signs stable. HEENT exam reveals large hematoma left-sided neck. Lungs are clear. Abdomen bowel sounds present soft nontender. Objective Data Vital Signs Vital Signs: Vital Signs - 24 hr 12/09/21 09:10 12/09/21 09:10 12/09/21 09:22 Temperature Pulse Rate 59 L 62 Respiratory Rate 20 20 Blood Pressure Pulse Oximetry 100 Oxygen Delivery Room Air 12/09/21 10:00 12/09/21 10:00 12/09/21 12:03 Temperature 98.3 F Pulse Rate 57 L 59 L 60 Respiratory Rate 17 18 Blood Pressure 121/50 L 126/52 L Pulse Oximetry 98 98 Oxygen Delivery 12/09/21 12:00 12/09/21 12:23 12/09/21 12:34 Temperature 98.3 F 98.3 F 98.4 F Pulse Rate 61 61 63 Respiratory Rate 18 16 18 Blood Pressure 126/52 L 142/56 H 142/56 H Pulse Oximetry 99 98 99 Oxygen Delivery 12/09/21 12:43 12/09/21 12:00 12/09/21 13:17 Temperature 98.4 F 98.2 F Pulse Rate 70 59 L 68 Respiratory Rate 18 18 Blood Pressure 136/57 L 114/49 L Pulse Oximetry 100 99 Oxygen Delivery 12/09/21 13:47 12/09/21 14:05 12/09/21 14:10 Temperature 98.3 F 97.7 F Pulse Rate 68 67 65 Respiratory Rate 18 16 Blood Pressure 114/49 L 116/51 L 133/60 Pulse Oximetry 100 Oxygen Delivery 12/09/21 17:28 12/09/21 14:40 12/09/21 15:00 Temperature 97.9 F Pulse Rate 82 64 73 Respiratory Rate 16 Blood Pressure 125/66 108/54 L 117/53 L Pulse Oximetry Oxygen Delivery 12/09/21 15:20 12/09/21 15:40 12/09/21 16:00 Temperature Pulse Rate 73 72 72 Respiratory Rate Blood Pressure 131/60 133/52 L 137/61 Pulse Oximetry Oxygen Delivery 12/09/21 16:20 12/09/21 16:40 12/09/21 17:00 Temperature Pulse Rate 71 73 68 Respiratory Rate Blood Pressure 132/59 L 129/60 141/62 H Pulse Oximetry Oxygen Delivery 12/09/21 16:00 12/09/21 19:58 12/09/21 20:00 Temperature Pulse Rate 72 64 Respiratory Rate 16 Blood Pressure Pulse Oximetry 96 Oxygen Delivery Room Air 12/09/21 20:06 12/09/21 20:24 12/09/21 20:00 Temperature 99 F Pulse Rate 65 75 72 Respiratory Rate 16 20 Blood Pressure 125/52 L Pulse Oximetry 97 Oxygen Delivery 12/10/21 00:00 12/10/21 04:00 12/10/21 06:00 Temperature 98.5 F Pulse Rate 79 81 70 Respiratory Rate 16 Blood Pressure 123/75 Pulse Oximetry 97 Oxygen Delivery Intake/Output Intake/Output: Intake & Output 12/07/21 12/08/21 12/09/21 12/10/21 23:59 23:59 23:59 23:59 Intake Total 4750 900 2216 600 Output Total 0 500 100 400 Balance 4750 400 2116 200 Meds/Results Medications: Active Medications Generic Name Dose Route Start Last Admin
[2021-12-10] MEDS: ALBUTEROL SULFATE NEB 2.5 MG/3 ML INH INHALATION ×2 (09:15→20:14)
--- NOTE | 2021-12-10 10:07 | P.PNNP_ITS ---
Progress Note: A&P Assessment and Plan (1) ROEL (acute kidney injury): Code(s): N17.9 - Acute kidney failure, unspecified Status: Acute Assessment and Plan: * due to ATN from infection on last hospitalization (COVID and C. diff colitis) * currently dialysis dependent * he had dialysis yesterday. * I wrote orders for tomorrow's dialysis. (2) Stage 3b chronic kidney disease: Code(s): N18.32 - Chronic kidney disease, stage 3b Status: Chronic Assessment and Plan: * baseline creatinine usually runs ~ 1.9 - 2.5mg/dl * felt to be secondary to diabetes, hypertension, vascular disease, and age. * Not much urine output , only 0-100 cc per day (3) C. difficile colitis: Code(s): A04.72 - Enterocolitis due to Clostridium difficile, not specified as recurrent Status: Acute Assessment and Plan: * recurrent issue/problem * first diagnosed in October 2021 * may have been exacerbated by recent levaquin use at skilled nursing (being treated for possible pnuemonia) * however, he was already having diarrhea issues before this antibiotic use * stool for C diff was positive on 12/06/2021 * started on PO vancomycin as well as fidaxomicin * diet advanced to regular. * No abdominal pain * Dr. Slade following (4) Anemia: Code(s): D64.9 - Anemia, unspecified Status: Chronic Assessment and Plan: * significant drop in H/H from 8.0-5.4, up to 7.7 then dropped to 6.8 again. Now up to 8.1. * Gastroenterology already following * PRBC transfusion per protocol * on PPI * Continue Epogen with HD * retained CT 2.73, which is a pretty good response to Epogen. * Check a CBC tomorrow. (5) Hypokalemia: Code(s): E87.6 - Hypokalemia Status: Acute Assessment and Plan: * due to ongoing GI losses and poor oral intake * Check a potassium in the morning (6) Pancolitis: Code(s): K51.00 - Ulcerative (chronic) pancolitis without complications Status: Acute Assessment and Plan: * as noted by presentation with abdominal pain and diarrhea as well as CT scan findings * see #3 * Gastroenterology and Surgey following * on antibiotics * diet advanced to regular. (7) Sepsis: Code(s): A41.9 - Sepsis, unspecified organism Status: Acute Assessment and Plan: * as noted by hypotension and elevated WBC * due to pancolitis and C. diff colitis * on antibiotic therapy * blood pressure is doing better. Systolic running 120-140. (8) Diabetes type 2, controlled: Code(s): E11.9 - Type 2 diabetes mellitus without complications Status: Acute Assessment and Plan: * management per hospitalists and rewriter. Subjective Date/time seen: 12/10/21 10:07 Interval history: Miky is feeling about the same today. He ate some pancakes and no meal for breakfast today. No belly pain. He continue to have liquid stool. Exam Narrative: General: ill appearing male in NAD Heart: normal S1 and S2; no rub or gallop Lungs: clear Abdomen: soft, less TTP, nondistended, positive bowel sounds Extremities: trace to 1+ edema Skin: no rash Or subcu nodules Objective Data Vital Signs Vital Signs: Vital Signs - 24 hr 12/09/21 12:03 12/09/21 12:00 12/09/21 12:23 Temperature 36.8 C 36.8 C 36.8 C Pulse Rate 60 61 61
--- NOTE | 2021-12-10 10:07 | PM.PNNEP ---
Progress Note: A&P Assessment and Plan (1) ROEL (acute kidney injury): Code(s): N17.9 - Acute kidney failure, unspecified Status: Acute Assessment and Plan: due to ATN from infection on last hospitalization (COVID and C. diff colitis) currently dialysis dependent he had dialysis yesterday. I wrote orders for tomorrow's dialysis. (2) Stage 3b chronic kidney disease: Code(s): N18.32 - Chronic kidney disease, stage 3b Status: Chronic Assessment and Plan: baseline creatinine usually runs ~ 1.9 - 2.5mg/dl felt to be secondary to diabetes, hypertension, vascular disease, and age. Not much urine output , only 0-100 cc per day (3) C. difficile colitis: Code(s): A04.72 - Enterocolitis due to Clostridium difficile, not specified as recurrent Status: Acute Assessment and Plan: recurrent issue/problem first diagnosed in October 2021 may have been exacerbated by recent levaquin use at alf (being treated for possible pnuemonia) however, he was already having diarrhea issues before this antibiotic use stool for C diff was positive on 12/06/2021 started on PO vancomycin as well as fidaxomicin diet advanced to regular. No abdominal pain Dr. Slade following (4) Anemia: Code(s): D64.9 - Anemia, unspecified Status: Chronic Assessment and Plan: significant drop in H/H from 8.0-5.4, up to 7.7 then dropped to 6.8 again. Now up to 8.1. Gastroenterology already following PRBC transfusion per protocol on PPI Continue Epogen with HD retained CT 2.73, which is a pretty good response to Epogen. Check a CBC tomorrow. (5) Hypokalemia: Code(s): E87.6 - Hypokalemia Status: Acute Assessment and Plan: due to ongoing GI losses and poor oral intake Check a potassium in the morning (6) Pancolitis: Code(s): K51.00 - Ulcerative (chronic) pancolitis without complications Status: Acute Assessment and Plan: as noted by presentation with abdominal pain and diarrhea as well as CT scan findings see #3 Gastroenterology and Surgey following on antibiotics diet advanced to regular. (7) Sepsis: Code(s): A41.9 - Sepsis, unspecified organism Status: Acute Assessment and Plan: as noted by hypotension and elevated WBC due to pancolitis and C. diff colitis on antibiotic therapy blood pressure is doing better. Systolic running 120-140. 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 Subjective Date/time seen: 12/10/21 10:07 Interval history: Miky is feeling about the same today. He ate some pancakes and no meal for breakfast today. No belly pain. He continue to have liquid stool. Exam Narrative: General: ill appearing male in NAD Heart: normal S1 and S2; no rub or gallop Lungs: clear Abdomen: soft, less TTP, nondistended, positive bowel sounds Extremities: trace to 1+ edema Skin: no rash Or subcu nodules Objective Data Vital Signs Vital Signs: Vital Signs - 24 hr 12/09/21 12:03 12/09/21 12:00 12/09/21 12:23 Temperature 36.8 C 36.8 C 36.8 C Pulse Rate 60 61 61 Respiratory Rate 18 18 16 Blood Pressure 126/52 L 126/52 L 142/56 H Pulse Oximetry 98 99 98 Oxygen Delivery 12/09/21 12:34 12/09/21 12:43 12/09/21 12:00 Temperature 36.9 C 36.9 C Pulse Rate 63 70 59 L Respiratory Rate 18 18 Blood Pressure 142/56 H 136/57 L Pulse Oximetry 99 100 Oxygen Delivery 12/09/21 13:17 12/09/21 13:47 12/09/21 14:05 Temperature 36.8 C 36.8 C 36.5 C Pulse Rate 68 68 67 Respiratory Rate 18 18 16 Blood Pressure 114/49 L 114/49 L 116/51 L Pulse Oximetry 99 100 Oxygen Delivery 12/09/21 14:10 12/09/21 17:28 12/09/21 14:40 Temperature 36.6 C P
--- NOTE | 2021-12-10 11:10 | PCNFU ---
Nutrition Follow-Up Complete: Inadequate energy intake related to altered GI function as evidenced by colitis with NPO status for bowel rest. Goal: Meet estimated needs Patient is progressing towards goal. We will continue current goal. Pt current nutrition is DBCC/heart healthy. Nutrition recommendation: Lorenzo BID and Banatrol Plus BID Last recorded weight is 86.6 kg., up from 76.5 kg on admit. Bowel Motility: +Bm reported 12/07 Labs Reviewed:No new labs to report. Meds Noted:Vancomycin, Midodrine,Ace, Protonix, Dificid, Lactinex Skin: Stage III Pressure Ulcer-Left buttock Additional Notes: Patient currently on a DBCC/Heart Healthy diet. Oral Intake has been fair. Spoke with MD today regarding diet supplements of Lorenzo BID for wound healing and Banatrol Plus for stool bulking. Agree with diet orders. Monitoring:diet, intake, wt, labs. Follow up every 3 days.
[2021-12-10 12:09] LABS: Glucose Point of Care 126 mg/dl (65-105)
[2021-12-10 12:57] LABS: Hematocrit 25.7 % (42.0-52.0); Mean Corpuscular HGB Conc 31.1 g/dl (32-36); Mean Corpuscular Hemoglobin 30.9 pg (26-34); Mean Corpuscular Volume 99.2 fl (80-100); Mean Platelet Volume 9.1 fl (7.4-10.4); Platelet Count Result 126 k/mm3 (150-375); Red Blood Count 2.59 M/mm3 (4.6-6.20); Red Cell Distribution Width 19.4 % (11.5-14.5); White Blood Count 11.7 K/mm3 (4.5-10.0)
[2021-12-10 13:06] LABS: Albumin Level 2.6 g/dL (3.5-5.1); Anion Gap 6 mmol/L (8-16); Blood Urea Nitrogen 4 mg/dL (9-20); Carbon Dioxide 28 mmol/L (22-30); Chloride 105 mmol/L (98-107); Estimated CRCL calculation 30 ml/min; Estimated Glomerular Filt Rate 34; Glucose 126 mg/dL (65-110); Magnesium 1.9 mg/dL (1.6-2.3); Phosphorus 1.1 mg/dL (2.5-4.5); Potassium 3.1 mmol/L (3.4-5.0); Sodium 139 mmol/L (137-145)
--- NOTE | 2021-12-10 13:32 | PM.IMPN ---
Progress Note: A&P Assessment and Plan (1) C. difficile colitis: Code(s): A04.72 - Enterocolitis due to Clostridium difficile, not specified as recurrent Status: Acute Assessment and Plan: -patient started on PO vancomycin (12/06) -GI following the patient 12/10/2021 interval history: patient with C diff colitis with FMS, denies any abdominal pain, able to tolerate his diet, patient has neck hematoma, his hgb is stable, seen by GI recommended to continue with oral vancomycin, patient ESRD had HD on Thursday and seen by Paula Gutierrez is scheduled for dialysis tomorrow, will continue to monitor. (2) Pancolitis: Code(s): K51.00 - Ulcerative (chronic) pancolitis without complications Status: Acute Assessment and Plan: Appreciate GI and surgical evaluation. See plan above. Continue antibiotics. (3) Sepsis: Code(s): A41.9 - Sepsis, unspecified organism Status: Acute Assessment and Plan: Improved (4) End stage renal disease: Code(s): N18.6 - End stage renal disease Status: Acute Assessment and Plan: Patient with end-stage renal disease on hemodialysis -nephrology has been consulted -dialysis will be done per Nephrology (5) Hypoalbuminemia due to protein-calorie malnutrition: Code(s): E88.09 - Other disorders of plasma-protein metabolism, not elsewhere classified; E46 - Unspecified protein-calorie malnutrition Status: Acute Assessment and Plan: Started patient on albumin (6) Electrolyte abnormality: Code(s): E87.8 - Other disorders of electrolyte and fluid balance, not elsewhere classified Status: Acute Assessment and Plan: Monitor electrolytes (7) Decubitus ulcer: Code(s): L89.90 - Pressure ulcer of unspecified site, unspecified stage Status: Acute Assessment and Plan: Wound Care to see (8) Diabetes type 2, controlled: Code(s): E11.9 - Type 2 diabetes mellitus without complications Status: Acute Assessment and Plan: Monitor blood sugars. Insulin as needed (9) Acute hypokalemia: Code(s): E87.6 - Hypokalemia Status: Acute Subjective Date/time seen: 12/10/21 13:32 12/10/2021 interval history: patient with C diff colitis with FMS, denies any abdominal pain, able to tolerate his diet, patient has neck hematoma, his hgb is stable, seen by GI recommended to continue with oral vancomycin, patient ESRD had HD on Thursday and seen by Paula Gutierrez is scheduled for dialysis tomorrow, will continue to monitor. Review of Systems Review of Systems: All systems reviewed & are unremarkable except as noted in HPI and below Exam Narrative: Patient is comfortable, NAD HEENT: eyes are clear and none icteric LUNGS:Normal respiratory effort ABD: distended Lower extremities: no edema SKIN: nonjaundiced Neuro: grossly intact. Objective Data Vital Signs Vital Signs: Vital Signs - 24 hr 12/09/21 13:47 12/09/21 14:05 12/09/21 14:10 Temperature 98.3 F 97.7 F Pulse Rate 68 67 65 Respiratory Rate 18 16 Blood Pressure 114/49 L 116/51 L 133/60 Pulse Oximetry 100 Oxygen Delivery 12/09/21 17:28 12/09/21 14:40 12/09/21 15:00 Temperature 97.9 F Pulse Rate 82 64 73 Respiratory Rate 16 Blood Pressure 125/66 108/54 L 117/53 L Pulse Oximetry Oxygen Delivery 12/09/21 15:20 12/09/21 15:40 12/09/21 16:00 Temperature Pulse Rate 73 72 72 Respiratory Rate Blood Pressure 131/60 133/52 L 137/61 Pulse Oximetry Oxygen Delivery 12/09/21 16:20 12/09/21 16:40 12/09/21 17:00 Temperature Pulse Rate 71 73 68 Respiratory Rate Blood Pressure 132/59 L 129/60 141/62 H Pulse Oximetry Oxygen Delivery 12/09/21 16:00 12/09/21 19:58 12/09/21 20:00 Temperature Pulse Rate 72 64 Respiratory Rate 16 Blood Pressure Pulse Oximetry 96 Oxygen Delivery Room Air 12/09/21 20:06 12/09/21 20:24 12/09/21 20:00 [place]
[2021-12-10] MEDS: FLUTICASONE/UMECLIDIN/VILANTER 100-62.5-25 MCG ELLIPTA 1 PUFF INHALATION (14:22)
[2021-12-10] MEDS: POTASSIUM/PHOSPHORUS/SODIUM 1.5 GM PACKET 2 PACKET PO (14:57)
--- NOTE | 2021-12-10 15:09 | PM.PNGS ---
Progress Note: A&P Assessment and Plan (1) C. difficile colitis: Code(s): A04.72 - Enterocolitis due to Clostridium difficile, not specified as recurrent Status: Acute Assessment and Plan: better, agree c questran and high fiber diet, exam benign, cont abx (2) Hematoma of neck: Code(s): S10.93XA - Contusion of unspecified part of neck, initial encounter Status: Acute Assessment and Plan: stable, cont serial exams Subjective Subjective Date/Time Seen: 12/10/21 15:09 c/o L neck pain, still c diarrhea, no abd pain Review of Systems Review of Systems: All systems reviewed & are unremarkable except as noted in HPI and below Exam Const: General: cooperative, comfortable and no acute distress Neck: Other: L neck hematoma - stable Resp: Auscultation: diminished lung sounds Cardio: Rate: regular rate Rhythm: regular rhythm GI: Inspection: normal to inspection and distended GI Palp: No abdominal tenderness, Yes Soft to palpation, No Tenderness to palpation present (GI), No Guarding due to palpation present (GI) and No Rigid due to palpation Objective Data Vital Signs Vital Signs: Vital Signs - 24 hr 12/09/21 17:28 12/09/21 15:20 12/09/21 15:40 Temperature 36.6 C Pulse Rate 82 73 72 Respiratory Rate 16 Blood Pressure 125/66 131/60 133/52 L Pulse Oximetry Oxygen Delivery 12/09/21 16:00 12/09/21 16:20 12/09/21 16:40 Temperature Pulse Rate 72 71 73 Respiratory Rate Blood Pressure 137/61 132/59 L 129/60 Pulse Oximetry Oxygen Delivery 12/09/21 17:00 12/09/21 16:00 12/09/21 19:58 Temperature Pulse Rate 68 72 64 Respiratory Rate 16 Blood Pressure 141/62 H Pulse Oximetry Oxygen Delivery 12/09/21 20:00 12/09/21 20:06 12/09/21 20:24 Temperature 37.2 C Pulse Rate 65 75 Respiratory Rate 16 20 Blood Pressure 125/52 L Pulse Oximetry 96 97 Oxygen Delivery Room Air 12/09/21 20:00 12/10/21 00:00 12/10/21 04:00 Temperature Pulse Rate 72 79 81 Respiratory Rate Blood Pressure Pulse Oximetry Oxygen Delivery 12/10/21 06:00 12/10/21 09:17 12/10/21 09:30 Temperature 36.9 C Pulse Rate 70 68 64 Respiratory Rate 16 20 20 Blood Pressure 123/75 Pulse Oximetry 97 Oxygen Delivery 12/10/21 14:12 12/10/21 08:00 12/10/21 12:00 Temperature 36.3 C L Pulse Rate 61 65 62 Respiratory Rate 18 Blood Pressure 138/62 Pulse Oximetry 100 Oxygen Delivery Intake/Output Intake/Output: Intake & Output 12/07/21 12/08/21 12/09/21 12/10/21 23:59 23:59 23:59 23:59 Intake Total 4750 900 2216 840 Output Total 0 500 100 400 Balance 4750 400 2116 440 Meds/Results Medications: Active Medications Generic Name Dose Route Start Last Admin Trade Name Freq PRN Reason Stop Dose Admin Acetaminophen 650 mg 12/09/21 09:00 12/10/21 00:46 Acetaminophen 325 Mg Tablet PO 650 mg Q6H PRN Administration Mild Pain (1-3) or Fever Hydrocodone Bitart/Acetaminophen 2 tab 12/07/21 04:06 12/10/21 05:36 Hydrocodone/Acetaminophen (*Crx) 5-325 Mg Tablet PO 2 tab Q4H PRN Administration Pain (Scale Score 4-6) Albuterol 2.5 mg 12/07/21 09:00 12/10/21 09:15 Albuterol Sulfate Neb 2.5 Mg/3 Ml Inh INHALATION 2.5 mg BID PUNEET Administration Aspirin 81 mg 12/07/21 09:00 12/07/21 09:02 Aspirin 81 Mg Enteric Tablet PO 81 mg QAM PUNEET Administration Atorvastatin Calcium 40 mg 12/07/21 21:00 Atorvastatin 40 Mg Tablet PO HS [facility] Dextrose 12.5 gm 12/07/21 04:11 Dextrose 50% 25 Gm/50 Ml Syringe IV PUSH PRN PRN Hypoglycemia Protocol Donepezil HCl 10 mg 12/07/21 09:00 12/07/21 09:02 Donepezil Hcl 10 Mg Tablet PO 10 mg DAILY PUNEET Administration Ezetimibe 5 mg 12/07/21 09:00 12/07/21 09:02 Ezetimibe 5 Mg Tablet PO 5 mg DAILY PUNEET Administration Famotidine 40 mg 12/07/21 09:00 12/07/21 09:01 Famotidine 20 Mg
--- NOTE | 2021-12-10 15:20 | PM.PNGS ---
Progress Note: A&P Assessment and Plan (1) C. difficile colitis: Code(s): A04.72 - Enterocolitis due to Clostridium difficile, not specified as recurrent Status: Acute Assessment and Plan: Abdominal exam remains benign. Continue antibiotics, Questran, and high fiber diet. (2) Hematoma of neck: Code(s): S10.93XA - Contusion of unspecified part of neck, initial encounter Status: Acute Assessment and Plan: Appears stable and not enlarging. Hgb remains stable. Continue to monitor. Plan I have discussed the patient's case and plan of care with Dr. Graves. Subjective Subjective Date/Time Seen: 12/10/21 15:20 Patient reports: tolerating a regular diet, diarrhea and afebrile Interval history: Chart and history reviewed. No specific complaints. Denies any abdominal pain or nausea. Rectal tube in place for diarrhea. Review of Systems Review of Systems: All systems reviewed & are unremarkable except as noted in HPI and below Exam Const: General: comfortable and no acute distress Orientation/consciousness: oriented to person, oriented to place and confusion (at times) Neck: Other: L neck hematoma with ecchymosis, appears stable GI: Inspection: non-distended GI Palp: Yes Soft to palpation, No Tenderness to palpation present (GI), No Guarding due to palpation present (GI) and No Rebound tenderness present Auscultation: normal bowel sounds Rectal Exam: other (rectal tube in place with green/brown liquid stool) Objective Data Vital Signs Vital Signs: Vital Signs - 24 hr 12/09/21 17:28 12/09/21 15:40 12/09/21 16:00 Temperature 97.9 F Pulse Rate 82 72 72 Respiratory Rate 16 Blood Pressure 125/66 133/52 L 137/61 Pulse Oximetry Oxygen Delivery 12/09/21 16:20 12/09/21 16:40 12/09/21 17:00 Temperature Pulse Rate 71 73 68 Respiratory Rate Blood Pressure 132/59 L 129/60 141/62 H Pulse Oximetry Oxygen Delivery 12/09/21 16:00 12/09/21 19:58 12/09/21 20:00 Temperature Pulse Rate 72 64 Respiratory Rate 16 Blood Pressure Pulse Oximetry 96 Oxygen Delivery Room Air 12/09/21 20:06 12/09/21 20:24 12/09/21 20:00 Temperature 99 F Pulse Rate 65 75 72 Respiratory Rate 16 20 Blood Pressure 125/52 L Pulse Oximetry 97 Oxygen Delivery 12/10/21 00:00 12/10/21 04:00 12/10/21 06:00 Temperature 98.5 F Pulse Rate 79 81 70 Respiratory Rate 16 Blood Pressure 123/75 Pulse Oximetry 97 Oxygen Delivery 12/10/21 09:17 12/10/21 09:30 12/10/21 14:12 Temperature 97.4 F L Pulse Rate 68 64 61 Respiratory Rate 20 20 18 Blood Pressure 138/62 Pulse Oximetry 100 Oxygen Delivery 12/10/21 08:00 12/10/21 12:00 Temperature Pulse Rate 65 62 Respiratory Rate Blood Pressure Pulse Oximetry Oxygen Delivery Intake/Output Intake/Output: Intake & Output 12/07/21 12/08/21 12/09/21 12/10/21 23:59 23:59 23:59 23:59 Intake Total 4750 900 2216 840 Output Total 0 500 100 400 Balance 4750 400 2116 440 Meds/Results Medications: Active Medications Generic Name Dose Route Start Last Admin Trade Name Freq PRN Reason Stop Dose Admin Acetaminophen 650 mg 12/09/21 09:00 12/10/21 00:46 Acetaminophen 325 Mg Tablet PO 650 mg Q6H PRN Administration Mild Pain (1-3) or Fever Hydrocodone Bitart/Acetaminophen 2 tab 12/07/21 04:06 12/10/21 05:36 Hydrocodone/Acetaminophen (*Crx) 5-325 Mg Tablet PO 2 tab Q4H PRN Administration Pain (Scale Score 4-6) Albuterol 2.5 mg 12/07/21 09:00 12/10/21 09:15 Albuterol Sulfate Neb 2.5 Mg/3 Ml Inh INHALATION 2.5 mg BID PUNEET Administration Aspirin 81 mg 12/07/21 09:00 12/07/21 09:02 Aspirin 81 Mg Enteric Tablet PO 81 mg QAM PUNEET Administration Atorvastatin Calcium 40 mg 12/07/21 21:00 Atorvastatin 40 Mg Tablet PO HS PUNEET Dextrose 12.5 gm 12/07/21 04:11 Dextrose 50% 25 Gm/50 Ml Syringe IV PUSH PRN
[2021-12-10 17:18] LABS: Glucose Point of Care 109 mg/dl (65-105)
[2021-12-10 22:03] LABS: Glucose Point of Care 141 mg/dl (65-105)
[2021-12-11] VITALS (15 sets, daily range): BP systolic 120–126; BP diastolic 58–71; PULSE 67–80; RESP 16; TEMP 36.4–36.5; O2SAT 97–99
[2021-12-11] MEDS: CENTRAL LINE FLUSH 20 ML IV PUSH (05:29)
[2021-12-11 05:30] LABS: Albumin Level 2.3 g/dL (3.5-5.1); Anion Gap 11 mmol/L (8-16); Blood Urea Nitrogen 11 mg/dL (9-20); Calcium 7.6 mg/dL (8.4-10.2); Carbon Dioxide 27 mmol/L (22-30); Chloride 101 mmol/L (98-107); Estimated CRCL calculation 25 ml/min; Estimated Glomerular Filt Rate 28; Glucose 108 mg/dL (65-110); Hematocrit 26.9 % (42.0-52.0); Hemoglobin 8.4 g/dL (14.0-18.0); Magnesium 1.7 mg/dL (1.6-2.3); Mean Corpuscular HGB Conc 31.2 g/dl (32-36); Mean Corpuscular Volume 99.3 fl (80-100); Mean Platelet Volume 9.6 fl (7.4-10.4); Phosphorus 1.4 mg/dL (2.5-4.5); Platelet Count Result 141 k/mm3 (150-375); Potassium 3.1 mmol/L (3.4-5.0); Red Blood Count 2.71 M/mm3 (4.6-6.20); Red Cell Distribution Width 19.6 % (11.5-14.5); Sodium 139 mmol/L (137-145); White Blood Count 11.2 K/mm3 (4.5-10.0)
[2021-12-11] MEDS: VANCOMYCIN ORAL 500 MG/10 ML SYRUP PO ×4 (06:33→18:10)
--- NOTE | 2021-12-11 07:47 | WPDGIPROGNO ---
Progress Note: A&P Assessment and Plan (1) C. difficile colitis: Code(s): A04.72 - Enterocolitis due to Clostridium difficile, not specified as recurrent Status: Acute Assessment and Plan: Patient with ongoing diarrhea. Remains on oral vancomycin. Questran added in hopes to contain diarrhea. Continue therapy. (2) Hematoma of neck: Code(s): S10.93XA - Contusion of unspecified part of neck, initial encounter Status: Acute Assessment and Plan: Hematoma of left neck is subsiding. Hemoglobin stable at 8.4. Avoid anticoagulation at present. (3) End stage renal disease: Code(s): N18.6 - End stage renal disease Status: Acute Assessment and Plan: End-stage renal disease. Patient remains on dialysis. Anemia a partially secondary to chronic kidney disease. Subjective Date/time seen: 12/11/21 07:47 Patient continues to have diarrhea. Remains on oral vancomycin. Fecal containment bag in place. Receiving dialysis for end-stage renal disease. Notes some discomfort from left neck hematoma. Review of Systems Review of Systems: Review of systems noncontributory. Exam Narrative: Physical exam reveals patient be alert. Vital signs stable. HEENT exam is unremarkable. Patient anicteric. Lungs are clear. Heart without murmur. Abdomen bowel sounds present soft nontender. Objective Data Vital Signs Vital Signs: Vital Signs - 24 hr 12/10/21 09:17 12/10/21 09:30 12/10/21 14:12 Temperature 97.4 F L Pulse Rate 68 64 61 Respiratory Rate 20 20 18 Blood Pressure 138/62 Pulse Oximetry 100 Oxygen Delivery 12/10/21 08:00 12/10/21 12:00 12/10/21 16:00 Temperature Pulse Rate 65 62 69 Respiratory Rate Blood Pressure Pulse Oximetry Oxygen Delivery 12/10/21 20:15 12/10/21 20:15 12/10/21 20:25 Temperature Pulse Rate 67 69 Respiratory Rate 18 18 Blood Pressure Pulse Oximetry 97 Oxygen Delivery Room Air 12/10/21 20:56 12/10/21 20:00 12/11/21 00:00 Temperature 97.7 F Pulse Rate 73 69 70 Respiratory Rate 18 Blood Pressure 119/50 L Pulse Oximetry 100 Oxygen Delivery 12/11/21 04:00 12/11/21 04:24 Temperature 97.6 F Pulse Rate 71 70 Respiratory Rate 16 Blood Pressure 120/71 Pulse Oximetry 97 Oxygen Delivery Intake/Output Intake/Output: Intake & Output 12/08/21 12/09/21 12/10/21 12/11/21 23:59 23:59 23:59 23:59 Intake Total 900 2216 1610 150 Output Total 500 100 400 100 Balance 400 2116 1210 50 Meds/Results Medications: Active Medications Generic Name Dose Route Start Last Admin Trade Name Freq PRN Reason Stop Dose Admin Acetaminophen 650 mg 12/09/21 09:00 12/10/21 00:46 Acetaminophen 325 Mg Tablet PO 650 mg Q6H PRN Administration Mild Pain (1-3) or Fever Hydrocodone Bitart/Acetaminophen 2 tab 12/07/21 04:06 12/10/21 05:36 Hydrocodone/Acetaminophen (*Crx) 5-325 Mg Tablet PO 2 tab Q4H PRN Administration Pain (Scale Score 4-6) Albuterol 2.5 mg 12/11/21 08:00 Albuterol Sulfate Neb 2.5 Mg/3 Ml Inh INHALATION Q12HRT PUNEET Aspirin 81 mg 12/07/21 09:00 12/07/21 09:02 Aspirin 81 Mg Enteric Tablet PO 81 mg QAM PUNEET Administration Atorvastatin Calcium 40 mg 12/07/21 21:00 Atorvastatin 40 Mg Tablet PO HS PUNEET Dextrose 12.5 gm 12/07/21 04:11 Dextrose 50% 25 Gm/50 Ml Syringe IV PUSH PRN PRN Hypoglycemia Protocol Donepezil HCl 10 mg 12/07/21 09:00 12/07/21 09:02 Donepezil Hcl 10 Mg Tablet PO 10 mg DAILY PUNEET Administration Ezetimibe 5 mg 12/07/21 09:00 12/07/21 09:02 Ezetimibe 5 Mg Tablet PO 5 mg DAILY PUNEET Administration Famotidine 40 mg 12/07/21 09:00 12/07/21 09:01 Famotidine 20 Mg Tablet PO 40 mg BID PUNEET Administration Ferrous Sulfate 324 mg 12/07/21 09:00 12/07/21 09:01 Ferrous Sulfate 324 Mg Tablet PO 324 mg DAILY PUNEET Administration Fidaxomici
[2021-12-11 08:14] LABS: Glucose Point of Care 96 mg/dl (65-105)
[2021-12-11 08:14] LABS: Glucose Point of Care 104 mg/dl (65-105)
[2021-12-11] MEDS: ACIDOPHILUS/BULGARICUS CHEWABLE TABLET 1 TABLET PO ×2 (08:15→17:26)
[2021-12-11] MEDS: CENTRAL LINE FLUSH 10 ML IV PUSH ×4 (08:15→21:39)
[2021-12-11] MEDS: POTASSIUM CHLORIDE 20 MEQ PACKET (FOR LIQUID) 40 MEQ PO (08:15)
[2021-12-11] MEDS: FIDAXOMICIN 200 MG TABLET PO ×2 (08:16→20:24)
[2021-12-11] MEDS: GABAPENTIN 300 MG CAPSULE PO ×2 (08:16→17:27)
[2021-12-11] MEDS: MIDODRINE HCL 10 MG TABLET PO ×3 (08:16→17:26)
[2021-12-11] MEDS: PANTOPRAZOLE SODIUM IV 40 MG VIAL IV PUSH ×2 (08:17→20:24)
[2021-12-11] MEDS: ALBUTEROL SULFATE NEB 2.5 MG/3 ML INH INHALATION ×2 (08:17→21:39)
[2021-12-11] MEDS: FLUTICASONE/UMECLIDIN/VILANTER 100-62.5-25 MCG ELLIPTA 1 PUFF INHALATION (08:17)
[2021-12-11] MEDS: EUCERIN CREAM 120 GM JAR 1 APPLIC TOPICAL (08:17)
--- NOTE | 2021-12-11 09:42 | P.PNNP_ITS ---
Progress Note: A&P Assessment and Plan (1) ROEL (acute kidney injury): Code(s): N17.9 - Acute kidney failure, unspecified Status: Acute Assessment and Plan: * due to ATN from infection on last hospitalization (COVID and C. diff colitis) * currently dialysis dependent * still not making much urine * he is likely not going to open up. (2) Stage 3b chronic kidney disease: Code(s): N18.32 - Chronic kidney disease, stage 3b Status: Chronic Assessment and Plan: * baseline creatinine usually runs ~ 1.9 - 2.5mg/dl * felt to be secondary to diabetes, hypertension, vascular disease, and age. (3) C. difficile colitis: Code(s): A04.72 - Enterocolitis due to Clostridium difficile, not specified as recurrent Status: Acute Assessment and Plan: * recurrent issue/problem * first diagnosed in October 2021 * may have been exacerbated by recent levaquin use at [facility] (being treated for possible pnuemonia) * however, he was already having diarrhea issues before this antibiotic use * stool for C diff was positive on 12/06/2021 * Currently on PO vancomycin as well as fidaxomicin * diet advanced to regular. * No abdominal pain * Still has copious diarrhea. MS still in. * Dr. Slade following (4) Anemia: Code(s): D64.9 - Anemia, unspecified Status: Chronic Assessment and Plan: * hemoglobin gradually rising. Now 8.4. * Gastroenterology already following * PRBC transfusion per protocol * on PPI * Continue Epogen with HD * Reticulocyte count 2.73, which is a pretty good response to Epogen. * Check a CBC tomorrow. (5) Hypokalemia: Code(s): E87.6 - Hypokalemia Status: Acute Assessment and Plan: * due to ongoing GI losses and poor oral intake * Check a potassium in the morning (6) Pancolitis: Code(s): K51.00 - Ulcerative (chronic) pancolitis without complications Status: Acute Assessment and Plan: * as noted by presentation with abdominal pain and diarrhea as well as CT scan findings * see #3 * Gastroenterology and [facility]ge[facility] following * on antibiotics * diet advanced to regular. (7) Sepsis: Code(s): A41.9 - Sepsis, unspecified organism Status: Acute Assessment and Plan: * as noted by hypotension and elevated WBC * due to pancolitis and C. diff colitis * on antibiotic therapy * blood pressure is doing better. Systolic running 120-140. 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 Subjective Date/time seen: 12/11/21 09:42 Interval history: Miky is feeling about the same today. He is a bit frustrated with his lengthy hospital stay. We discussed how difficult it is to treat C diff colitis at times. He still has an FMS in. He still has diarrhea. He ate some yesterday. He did not have belly pain after eating. Exam Narrative: General: ill appearing male in NAD Heart: normal S1 and S2; no rub or gallop Lungs: clear bilaterally Abdomen: soft, less TTP, nondistended, positive bowel sounds Extremities: trace to 1+ edema Skin: no rash Or subcu nodules Objective Data Vital Signs Vital Signs: Vital Signs - 24 hr 12/10/21 14:12 12/10/21 12:00 12/10/21
--- NOTE | 2021-12-11 09:42 | PM.PNNEP ---
Progress Note: A&P Assessment and Plan (1) ROEL (acute kidney injury): Code(s): N17.9 - Acute kidney failure, unspecified Status: Acute Assessment and Plan: due to ATN from infection on last hospitalization (COVID and C. diff colitis) currently dialysis dependent still not making much urine he is likely not going to open up. (2) Stage 3b chronic kidney disease: Code(s): N18.32 - Chronic kidney disease, stage 3b Status: Chronic Assessment and Plan: baseline creatinine usually runs ~ 1.9 - 2.5mg/dl felt to be secondary to diabetes, hypertension, vascular disease, and age. (3) C. difficile colitis: Code(s): A04.72 - Enterocolitis due to Clostridium difficile, not specified as recurrent Status: Acute Assessment and Plan: recurrent issue/problem first diagnosed in October 2021 may have been exacerbated by recent levaquin use at [facility] (being treated for possible pnuemonia) however, he was already having diarrhea issues before this antibiotic use stool for C diff was positive on 12/06/2021 Currently on PO vancomycin as well as fidaxomicin diet advanced to regular. No abdominal pain Still has copious diarrhea. MS still in. Dr. Slade following (4) Anemia: Code(s): D64.9 - Anemia, unspecified Status: Chronic Assessment and Plan: hemoglobin gradually rising. Now 8.4. Gastroenterology already following PRBC transfusion per protocol on PPI Continue Epogen with HD Reticulocyte count 2.73, which is a pretty good response to Epogen. Check a CBC tomorrow. (5) Hypokalemia: Code(s): E87.6 - Hypokalemia Status: Acute Assessment and Plan: due to ongoing GI losses and poor oral intake Check a potassium in the morning (6) Pancolitis: Code(s): K51.00 - Ulcerative (chronic) pancolitis without complications Status: Acute Assessment and Plan: as noted by presentation with abdominal pain and diarrhea as well as CT scan findings see #3 Gastroenterology and Surgey following on antibiotics diet advanced to regular. (7) Sepsis: Code(s): A41.9 - Sepsis, unspecified organism Status: Acute Assessment and Plan: as noted by hypotension and elevated WBC due to pancolitis and C. diff colitis on antibiotic therapy blood pressure is doing better. Systolic running 120-140. 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 Subjective Date/time seen: 12/11/21 09:42 Interval history: Miky is feeling about the same today. He is a bit frustrated with his lengthy hospital stay. We discussed how difficult it is to treat C diff colitis at times. He still has an FMS in. He still has diarrhea. He ate some yesterday. He did not have belly pain after eating. Exam Narrative: General: ill appearing male in NAD Heart: normal S1 and S2; no rub or gallop Lungs: clear bilaterally Abdomen: soft, less TTP, nondistended, positive bowel sounds Extremities: trace to 1+ edema Skin: no rash Or subcu nodules Objective Data Vital Signs Vital Signs: Vital Signs - 24 hr 12/10/21 14:12 12/10/21 12:00 12/10/21 16:00 Temperature 36.3 C L Pulse Rate 61 62 69 Respiratory Rate 18 Blood Pressure 138/62 Pulse Oximetry 100 Oxygen Delivery 12/10/21 20:15 12/10/21 20:15 12/10/21 20:25 Temperature Pulse Rate 67 69 Respiratory Rate 18 18 Blood Pressure Pulse Oximetry 97 Oxygen Delivery Room Air 12/10/21 20:56 12/10/21 20:00 12/11/21 00:00 Temperature 36.5 C Pulse Rate 73 69 70 Respiratory Rate 18 Blood Pressure 119/50 L Pulse Oximetry 100 Oxygen Delivery 12/11/21 04:00 12/11/21 04:24 12/11/21 08:00 Temperature 36.4 C Pu
--- NOTE | 2021-12-11 11:26 | PM.IMPN ---
Progress Note: A&P Assessment and Plan (1) C. difficile colitis: Code(s): A04.72 - Enterocolitis due to Clostridium difficile, not specified as recurrent Status: Acute Assessment and Plan: -patient started on PO vancomycin (12/06) -GI following the patient (2) Pancolitis: Code(s): K51.00 - Ulcerative (chronic) pancolitis without complications Status: Acute Assessment and Plan: Appreciate GI and surgical evaluation. See plan above. Continue antibiotics. (3) Sepsis: Code(s): A41.9 - Sepsis, unspecified organism Status: Acute Assessment and Plan: Improved (4) End stage renal disease: Code(s): N18.6 - End stage renal disease Status: Acute Assessment and Plan: Patient with end-stage renal disease on hemodialysis -nephrology has been consulted -dialysis will be done per Nephrology (5) Hypoalbuminemia due to protein-calorie malnutrition: Code(s): E88.09 - Other disorders of plasma-protein metabolism, not elsewhere classified; E46 - Unspecified protein-calorie malnutrition Status: Acute Assessment and Plan: Started patient on albumin (6) Electrolyte abnormality: Code(s): E87.8 - Other disorders of electrolyte and fluid balance, not elsewhere classified Status: Acute Assessment and Plan: Monitor electrolytes (7) Decubitus ulcer: Code(s): L89.90 - Pressure ulcer of unspecified site, unspecified stage Status: Acute Assessment and Plan: Wound Care to see (8) Diabetes type 2, controlled: Code(s): E11.9 - Type 2 diabetes mellitus without complications Status: Acute Assessment and Plan: Monitor blood sugars. Insulin as needed (9) Acute hypokalemia: Code(s): E87.6 - Hypokalemia Status: Acute Subjective Date/time seen: 12/11/21 11:26 No new complaints Exam Narrative: Patient is comfortable, NAD HEENT: eyes are clear and none icteric LUNGS:Normal respiratory effort ABD: distended Lower extremities: no edema SKIN: nonjaundiced Neuro: grossly intact. Objective Data Vital Signs Vital Signs: Vital Signs - 24 hr 12/10/21 14:12 12/10/21 12:00 12/10/21 16:00 Temperature 97.4 F L Pulse Rate 61 62 69 Respiratory Rate 18 Blood Pressure 138/62 Pulse Oximetry 100 Oxygen Delivery 12/10/21 20:15 12/10/21 20:15 12/10/21 20:25 Temperature Pulse Rate 67 69 Respiratory Rate 18 18 Blood Pressure Pulse Oximetry 97 Oxygen Delivery Room Air 12/10/21 20:56 12/10/21 20:00 12/11/21 00:00 Temperature 97.7 F Pulse Rate 73 69 70 Respiratory Rate 18 Blood Pressure 119/50 L Pulse Oximetry 100 Oxygen Delivery 12/11/21 04:00 12/11/21 04:24 12/11/21 08:00 Temperature 97.6 F Pulse Rate 71 70 75 Respiratory Rate 16 Blood Pressure 120/71 Pulse Oximetry 97 Oxygen Delivery 12/11/21 08:09 12/11/21 08:18 12/11/21 08:28 Temperature Pulse Rate 72 72 69 Respiratory Rate 16 16 Blood Pressure Pulse Oximetry 97 Oxygen Delivery Room Air 12/11/21 08:15 Temperature Pulse Rate Respiratory Rate Blood Pressure Pulse Oximetry Oxygen Delivery Room Air Intake/Output Intake/Output: Intake & Output 12/08/21 12/09/21 12/10/21 12/11/21 23:59 23:59 23:59 23:59 Intake Total 900 2216 1610 510 Output Total 500 100 400 100 Balance 400 2116 1210 410 Meds/Results Medications: Active Medications Generic Name Dose Route Start Last Admin Trade Name Freq PRN Reason Stop Dose Admin Acetaminophen 650 mg 12/09/21 09:00 12/10/21 00:46 Acetaminophen 325 Mg Tablet PO 650 mg Q6H PRN Administration Mild Pain (1-3) or Fever Hydrocodone Bitart/Acetaminophen 2 tab 12/07/21 04:06 12/10/21 05:36 Hydrocodone/Acetaminophen (*Crx) 5-325 Mg Tablet PO 2 tab Q4H PRN Administration Pain (Scale Score 4-6) Albuterol 2.5 mg 12/11/21 08:00 12/11/21 08:17 [place]
[2021-12-11 11:58] LABS: Glucose Point of Care 127 mg/dl (65-105)
--- NOTE | 2021-12-11 15:02 | PM.PNGS ---
Progress Note: A&P Assessment and Plan (1) C. difficile colitis: Code(s): A04.72 - Enterocolitis due to Clostridium difficile, not specified as recurrent Status: Acute Assessment and Plan: cont po abx, WBC and exam largely normal, no acute surgical issues, will s/o, call c ?s, issues (2) Hematoma of neck: Code(s): S10.93XA - Contusion of unspecified part of neck, initial encounter Status: Acute Assessment and Plan: better, H/H stable, no acute surgical issues Subjective Subjective Date/Time Seen: 12/11/21 15:02 no acute issues, still c diarrhea, L neck hematoma improving Review of Systems Review of Systems: All systems reviewed & are unremarkable except as noted in HPI and below Exam Const: General: cooperative, no acute distress and ill appearing Resp: Auscultation: diminished lung sounds Cardio: Rate: regular rate Rhythm: regular rhythm GI: Inspection: normal to inspection and non-distended GI Palp: No abdominal tenderness, Yes Soft to palpation, No Tenderness to palpation present (GI), No Guarding due to palpation present (GI) and No Rigid due to palpation Objective Data Vital Signs Vital Signs: Vital Signs - 24 hr 12/10/21 16:00 12/10/21 20:15 12/10/21 20:15 Temperature Pulse Rate 69 67 Respiratory Rate 18 Blood Pressure Pulse Oximetry 97 Oxygen Delivery Room Air 12/10/21 20:25 12/10/21 20:56 12/10/21 20:00 Temperature 36.5 C Pulse Rate 69 73 69 Respiratory Rate 18 18 Blood Pressure 119/50 L Pulse Oximetry 100 Oxygen Delivery 12/11/21 00:00 12/11/21 04:00 12/11/21 04:24 Temperature 36.4 C Pulse Rate 70 71 70 Respiratory Rate 16 Blood Pressure 120/71 Pulse Oximetry 97 Oxygen Delivery 12/11/21 08:00 12/11/21 08:09 12/11/21 08:18 Temperature Pulse Rate 75 72 72 Respiratory Rate 16 Blood Pressure Pulse Oximetry 97 Oxygen Delivery Room Air 12/11/21 08:28 12/11/21 08:15 12/11/21 12:00 Temperature Pulse Rate 69 80 Respiratory Rate 16 Blood Pressure Pulse Oximetry Oxygen Delivery Room Air 12/11/21 14:10 Temperature 36.5 C Pulse Rate 69 Respiratory Rate 16 Blood Pressure 122/70 Pulse Oximetry 98 Oxygen Delivery Intake/Output Intake/Output: Intake & Output 12/08/21 12/09/21 12/10/21 12/11/21 23:59 23:59 23:59 23:59 Intake Total 900 2216 1610 750 Output Total 500 100 400 100 Balance 400 2116 1210 650 Meds/Results Medications: Active Medications Generic Name Dose Route Start Last Admin Trade Name Freq PRN Reason Stop Dose Admin Acetaminophen 650 mg 12/09/21 09:00 12/10/21 00:46 Acetaminophen 325 Mg Tablet PO 650 mg Q6H PRN Administration Mild Pain (1-3) or Fever Hydrocodone Bitart/Acetaminophen 2 tab 12/07/21 04:06 12/10/21 05:36 Hydrocodone/Acetaminophen (*Crx) 5-325 Mg Tablet PO 2 tab Q4H PRN Administration Pain (Scale Score 4-6) Albuterol 2.5 mg 12/11/21 08:00 12/11/21 08:17 Albuterol Sulfate Neb 2.5 Mg/3 Ml Inh INHALATION 2.5 mg Q12HRT PUNEET Administration Aspirin 81 mg 12/07/21 09:00 12/07/21 09:02 Aspirin 81 Mg Enteric Tablet PO 81 mg QAM PUNEET Administration Atorvastatin Calcium 40 mg 12/07/21 21:00 Atorvastatin 40 Mg Tablet PO HS PUNEET Dextrose 12.5 gm 12/07/21 04:11 Dextrose 50% 25 Gm/50 Ml Syringe IV PUSH PRN PRN Hypoglycemia Protocol Donepezil HCl 10 mg 12/07/21 09:00 12/07/21 09:02 Donepezil Hcl 10 Mg Tablet PO 10 mg DAILY PUNEET Administration Ezetimibe 5 mg 12/07/21 09:00 12/07/21 09:02 Ezetimibe 5 Mg Tablet PO 5 mg DAILY PUNEET Administration Famotidine 40 mg 12/07/21 09:00 12/07/21 09:01 Famotidine 20 Mg Tablet PO 40 mg BID PUNEET Administration Ferrous Sulfate 324 mg 12/07/21 09:00 12/07/21 09:01 Ferrous Sulfate 324 Mg Tablet PO 324 mg DAILY PUNEET Administration Fidaxomicin 200 mg 12/07/21 10:50 12/11/21 08
[2021-12-11] MEDS: ALTEPLASE 2 MG VIAL (CATHFLO) IV PUSH ×2 (15:51→15:56)
[2021-12-11 17:17] LABS: Glucose Point of Care 103 mg/dl (65-105)
--- NOTE | 2021-12-11 19:28 | PC.NURSE ---
Addendum entered by Breanna Aviles RN 12/11/21 19:31: wrong pt regarding vancomycin, per report pt didn't received dialysis today, dialysis is scheduled possible for tomorrow per report from Lupe NUNEZ Original Note: per report pt didn't received dialysis today, dialysis is scheduled possible for tomorrow per report from Lupe NUNEZ. Lupe called pharmacy for vanco trough 35.8 which is high. Pharmacist to redo vancomycin.
[2021-12-11 20:34] LABS: Glucose Point of Care 135 mg/dl (65-105)
[2021-12-12] VITALS (23 sets, daily range): BP systolic 92–132; BP diastolic 44–72; PULSE 64–84; RESP 16–20; TEMP 36.4–37; O2SAT 93–99
[2021-12-12] MEDS: VANCOMYCIN ORAL 500 MG/10 ML SYRUP PO ×5 (00:01→23:55)
--- NOTE | 2021-12-12 03:25 | PC.NURSE ---
reordering miconazole cream from pharmacy
[2021-12-12] MEDS: CENTRAL LINE FLUSH 10 ML IV PUSH ×3 (05:09→22:42)
[2021-12-12 05:17] LABS: Hematocrit 25.9 % (42.0-52.0); Hemoglobin 8.1 g/dL (14.0-18.0); Mean Corpuscular HGB Conc 31.3 g/dl (32-36); Mean Corpuscular Hemoglobin 31.4 pg (26-34); Mean Corpuscular Volume 100.4 fl (80-100); Mean Platelet Volume 9.6 fl (7.4-10.4); Platelet Count Result 124 k/mm3 (150-375); Red Blood Count 2.58 M/mm3 (4.6-6.20); Red Cell Distribution Width 19.1 % (11.5-14.5); White Blood Count 9.2 K/mm3 (4.5-10.0)
--- NOTE | 2021-12-12 05:30 | PC.NURSE ---
L hand / LUE edema, weeping this morning, wrapped with kerlix and abd pads.
--- NOTE | 2021-12-12 05:33 | PC.NURSE ---
reported weeping edema LUE to MD Lockhart, n.o ice pack and elevate LUE with pillow.
--- NOTE | 2021-12-12 05:36 | PC.NURSE ---
labs collect via picc draw this am, sent to lab for analysis
[2021-12-12 05:43] LABS: Albumin Level 2.2 g/dL (3.5-5.1); Anion Gap 10 mmol/L (8-16); Blood Urea Nitrogen 24 mg/dL (9-20); Calcium 7.5 mg/dL (8.4-10.2); Carbon Dioxide 26 mmol/L (22-30); Chloride 104 mmol/L (98-107); Estimated CRCL calculation 20 ml/min; Estimated Glomerular Filt Rate 21; Glucose 104 mg/dL (65-110); Magnesium 1.7 mg/dL (1.6-2.3); Phosphorus 1.5 mg/dL (2.5-4.5); Potassium 3.6 mmol/L (3.4-5.0); Sodium 140 mmol/L (137-145)
[2021-12-12] MEDS: FLUTICASONE/UMECLIDIN/VILANTER 100-62.5-25 MCG ELLIPTA 1 PUFF INHALATION (08:14)
[2021-12-12] MEDS: ALBUTEROL SULFATE NEB 2.5 MG/3 ML INH INHALATION ×2 (08:14→20:34)
[2021-12-12 08:25] LABS: Glucose Point of Care 93 mg/dl (65-105)
[2021-12-12] MEDS: FIDAXOMICIN 200 MG TABLET PO ×2 (08:43→20:19)
[2021-12-12] MEDS: ACIDOPHILUS/BULGARICUS CHEWABLE TABLET 1 TABLET PO ×2 (08:43→17:04)
[2021-12-12] MEDS: GABAPENTIN 300 MG CAPSULE PO ×2 (08:43→17:04)
[2021-12-12] MEDS: MIDODRINE HCL 10 MG TABLET PO ×3 (08:44→17:03)
[2021-12-12] MEDS: PANTOPRAZOLE SODIUM IV 40 MG VIAL IV PUSH ×2 (08:44→20:19)
[2021-12-12] MEDS: EUCERIN CREAM 120 GM JAR 1 APPLIC TOPICAL (08:44)
--- NOTE | 2021-12-12 11:30 | PM.IMPN ---
Progress Note: A&P Assessment and Plan (1) C. difficile colitis: Code(s): A04.72 - Enterocolitis due to Clostridium difficile, not specified as recurrent Status: Acute Assessment and Plan: -patient started on PO vancomycin (12/06) -GI following the patient - will DC fecal management system. (2) Pancolitis: Code(s): K51.00 - Ulcerative (chronic) pancolitis without complications Status: Acute Assessment and Plan: Appreciate GI and surgical evaluation. See plan above. Continue antibiotics. (3) Sepsis: Code(s): A41.9 - Sepsis, unspecified organism Status: Acute Assessment and Plan: Improved (4) End stage renal disease: Code(s): N18.6 - End stage renal disease Status: Acute Assessment and Plan: Patient with end-stage renal disease on hemodialysis -nephrology has been consulted -dialysis will be done per Nephrology (5) Hypoalbuminemia due to protein-calorie malnutrition: Code(s): E88.09 - Other disorders of plasma-protein metabolism, not elsewhere classified; E46 - Unspecified protein-calorie malnutrition Status: Acute Assessment and Plan: Started patient on albumin (6) Electrolyte abnormality: Code(s): E87.8 - Other disorders of electrolyte and fluid balance, not elsewhere classified Status: Acute Assessment and Plan: Monitor electrolytes (7) Decubitus ulcer: Code(s): L89.90 - Pressure ulcer of unspecified site, unspecified stage Status: Acute Assessment and Plan: Wound Care to see (8) Diabetes type 2, controlled: Code(s): E11.9 - Type 2 diabetes mellitus without complications Status: Acute Assessment and Plan: Monitor blood sugars. Insulin as needed (9) Acute hypokalemia: Code(s): E87.6 - Hypokalemia Status: Acute Subjective Date/time seen: 12/12/21 11:30 no complaints. Output is improving Exam Narrative: Patient is comfortable, NAD HEENT: eyes are clear and none icteric LUNGS:Normal respiratory effort ABD: distended Lower extremities: no edema SKIN: nonjaundiced Neuro: grossly intact. Const: Other: Chronically ill-appearing, debilitated, appears older than stated age HENMT: Other: Edentulous, mucous membranes are dry, no oral pharyngeal erythema, head is normocephalic atraumatic Eyes: Other: Pupils are equal and reactive, no scleral icterus, positive conjunctival pallor Neck: Other: No JVD, no lymphadenopathy, supple Resp: Other: Clear to auscultation bilaterally, no increased work of breathing Cardio: Other: Regular rate, regular rhythm, 2+ bilateral radial pedal pulses GI: Other: Soft, no organomegaly, hyperactive bowel sounds, nontender : Other: Incontinent of stool, shallow small erythematous ulcers noted to the left posterior superior iliac spine, and bilateral buttock Back/Spine/Pelvis: Other: Patient reports tenderness over light touch of the thoracic spine but no localizing ulcers or lesions at this location, marked kyphosis of thoracic spine Skin: Other: Generalized pallor, decubitus ulcers to the buttocks bilaterally into the left pelvis, ulcers are small less than the size of a nickel, shallow, no fat layer exposed to the clean ulcers however some ulcers are covered in stool in a cannot evaluate, toenails are overgrown with several of his small toenails curling around the ends of his toes to the plantar surface Neuro: Other: Alert oriented x3, speech is clear but slow, no facial asymmetry Extrem: Other: No clubbing, no cyanosis, patient has edema of the lower extremities is pitting Psych: Other: Pleasant and cooperative, good attitude, calm, unrealistic expectations about long-term outcome Objective Data Vital Signs Vital Signs: Vital Signs - 24 hr 12/11/21 12:00 12/11/21 14:10 12/11/21 16:00 Temperature 97.7 F Pulse Rate 80 69 67 Respiratory Rate 16 Blood Pressure 1
--- NOTE | 2021-12-12 11:34 | P.PNNP_ITS ---
Progress Note: A&P Assessment and Plan (1) ROEL (acute kidney injury): Code(s): N17.9 - Acute kidney failure, unspecified Status: Acute Assessment and Plan: * due to ATN from infection on last hospitalization (COVID and C. diff colitis) * currently dialysis dependent * still not making much urine * he is likely not going to open up. (2) Stage 3b chronic kidney disease: Code(s): N18.32 - Chronic kidney disease, stage 3b Status: Chronic Assessment and Plan: * baseline creatinine usually runs ~ 1.9 - 2.5mg/dl * felt to be secondary to diabetes, hypertension, vascular disease, and age. (3) C. difficile colitis: Code(s): A04.72 - Enterocolitis due to Clostridium difficile, not specified as recurrent Status: Acute Assessment and Plan: * recurrent issue/problem * first diagnosed in October 2021 * may have been exacerbated by recent levaquin use at [facility] (being treated for possible pnuemonia) * however, he was already having diarrhea issues before this antibiotic use * Currently on PO vancomycin as well as fidaxomicin * diet advanced to regular. * No abdominal pain * Still has copious diarrhea. FMS still in. * Dr. Slade following (4) Anemia: Code(s): D64.9 - Anemia, unspecified Status: Chronic Assessment and Plan: * hemoglobin gradually rising. Now 8.1 * Gastroenterology already following * PRBC transfusion per protocol * on PPI * Continue Epogen with HD (5) Hypokalemia: Code(s): E87.6 - Hypokalemia Status: Acute Assessment and Plan: * Potassium okay today. (6) Sepsis: Code(s): A41.9 - Sepsis, unspecified organism Status: Acute Assessment and Plan: * Doing better on antibiotics. (7) Diabetes type 2, controlled: Code(s): E11.9 - Type 2 diabetes mellitus without complications Status: Acute Assessment and Plan: * management per hospitalists and dog beautician. Subjective Date/time seen: 12/12/21 11:34 Interval history: Miky is feeling about the same today. He ate about half his supper last night. No belly pain. Exam Narrative: General: ill appearing male in NAD Heart: normal S1 and S2; no rub or gallop Lungs: clear Abdomen: soft, less TTP, nondistended, positive bowel sounds Extremities: trace to 1+ edema Skin: no rash Objective Data Vital Signs Vital Signs: Vital Signs - 24 hr 12/11/21 12:00 12/11/21 14:10 12/11/21 16:00 Temperature 36.5 C Pulse Rate 80 69 67 Respiratory Rate 16 Blood Pressure 122/70 Pulse Oximetry 98 Oxygen Delivery 12/11/21 19:41 12/11/21 19:50 12/11/21 20:00 Temperature 36.5 C Pulse Rate 69 69 73 Respiratory Rate 16 16 Blood Pressure 126/58 L Pulse Oximetry 99 99 Oxygen Delivery Room Air 12/11/21 20:30 12/11/21 20:38 12/11/21 20:30 Temperature Pulse Rate 71 73 71 Respiratory Rate 16 16 Blood Pressure Pulse Oximetry 98 Oxygen Delivery Room Air 12/12/21 00:00 12/12/21 05:19 12/12/21 04:00 Temperature 36.4 C Pulse Rate 79 77 64 Respiratory Rate 16
--- NOTE | 2021-12-12 11:34 | PM.PNNEP ---
Progress Note: A&P Assessment and Plan (1) ROEL (acute kidney injury): Code(s): N17.9 - Acute kidney failure, unspecified Status: Acute Assessment and Plan: due to ATN from infection on last hospitalization (COVID and C. diff colitis) currently dialysis dependent still not making much urine he is likely not going to open up. (2) Stage 3b chronic kidney disease: Code(s): N18.32 - Chronic kidney disease, stage 3b Status: Chronic Assessment and Plan: baseline creatinine usually runs ~ 1.9 - 2.5mg/dl felt to be secondary to diabetes, hypertension, vascular disease, and age. (3) C. difficile colitis: Code(s): A04.72 - Enterocolitis due to Clostridium difficile, not specified as recurrent Status: Acute Assessment and Plan: recurrent issue/problem first diagnosed in October 2021 may have been exacerbated by recent levaquin use at [facility] nursing (being treated for possible pnuemonia) however, he was already having diarrhea issues before this antibiotic use Currently on PO vancomycin as well as fidaxomicin diet advanced to regular. No abdominal pain Still has copious diarrhea. FMS still in. Dr. Slade following (4) Anemia: Code(s): D64.9 - Anemia, unspecified Status: Chronic Assessment and Plan: hemoglobin gradually rising. Now 8.1 Gastroenterology already following PRBC transfusion per protocol on PPI Continue Epogen with HD (5) Hypokalemia: Code(s): E87.6 - Hypokalemia Status: Acute Assessment and Plan: Potassium okay today. (6) Sepsis: Code(s): A41.9 - Sepsis, unspecified organism Status: Acute Assessment and Plan: Doing better on antibiotics. (7) Diabetes type 2, controlled: Code(s): E11.9 - Type 2 diabetes mellitus without complications Status: Acute Assessment and Plan: management per hospitalists and microsoft office instructor. Subjective Date/time seen: 12/12/21 11:34 Interval history: Miky is feeling about the same today. He ate about half his supper last night. No belly pain. Exam Narrative: General: ill appearing male in NAD Heart: normal S1 and S2; no rub or gallop Lungs: clear Abdomen: soft, less TTP, nondistended, positive bowel sounds Extremities: trace to 1+ edema Skin: no rash Objective Data Vital Signs Vital Signs: Vital Signs - 24 hr 12/11/21 12:00 12/11/21 14:10 12/11/21 16:00 Temperature 36.5 C Pulse Rate 80 69 67 Respiratory Rate 16 Blood Pressure 122/70 Pulse Oximetry 98 Oxygen Delivery 12/11/21 19:41 12/11/21 19:50 12/11/21 20:00 Temperature 36.5 C Pulse Rate 69 69 73 Respiratory Rate 16 16 Blood Pressure 126/58 L Pulse Oximetry 99 99 Oxygen Delivery Room Air 12/11/21 20:30 12/11/21 20:38 12/11/21 20:30 Temperature Pulse Rate 71 73 71 Respiratory Rate 16 16 Blood Pressure Pulse Oximetry 98 Oxygen Delivery Room Air 12/12/21 00:00 12/12/21 05:19 12/12/21 04:00 Temperature 36.4 C Pulse Rate 79 77 64 Respiratory Rate 16 Blood Pressure 123/55 L Pulse Oximetry 99 Oxygen Delivery 12/12/21 08:00 12/12/21 08:05 12/12/21 08:05 Temperature Pulse Rate 69 74 74 Respiratory Rate 16 Blood Pressure Pulse Oximetry 93 Oxygen Delivery Room Air 12/12/21 08:15 12/12/21 08:15 12/12/21 08:00 Temperature Pulse Rate 70 Respiratory Rate 16 Blood Pressure Pulse Oximetry 93 Oxygen Delivery Room Air Intake/Output Intake/Output: Intake & Output 12/09/21 12/10/21 12/11/21 12/12/21 23:59 23:59 23:59 23:59 Intake Total 2216 1610 1208 520 Output Total 100 400 150 Balance 2116 1210 1058 520 Meds/Results Medications: Active Medications Generic Name Dose Route Start Last Admin Trade Name Freq PRN Reason Stop Dose Admin Acetaminophen 650 mg 12/09/21 09:00 12/10/21 00:46 Ac
[2021-12-12 12:05] LABS: Glucose Point of Care 147 mg/dl (65-105)
[2021-12-12 17:06] LABS: Glucose Point of Care 140 mg/dl (65-105)
--- NOTE | 2021-12-12 21:03 | PC.NURSE ---
per report pt [facility].
--- NOTE | 2021-12-12 23:12 | PC.NURSE ---
bs 115
[2021-12-12 23:13] LABS: Glucose Point of Care 115 mg/dl (65-105)
[2021-12-13] VITALS (10 sets, daily range): BP systolic 118–140; BP diastolic 52–60; PULSE 63–78; RESP 12–16; TEMP 36.6–36.8; O2SAT 95–99
[2021-12-13] MEDS: VANCOMYCIN ORAL 500 MG/10 ML SYRUP PO ×3 (05:02→17:07)
[2021-12-13] MEDS: CENTRAL LINE FLUSH 10 ML IV PUSH ×3 (05:09→20:31)
[2021-12-13] MEDS: HYDROcodone/acetaminophen (*CRX) 5-325 MG TABLET 2 TAB PO (05:13)
--- NOTE | 2021-12-13 05:21 | PC.NURSE ---
labs collected via picc line R femoral, send to lab for analysis.
[2021-12-13 05:23] LABS: Hematocrit 23.6 % (42.0-52.0); Hemoglobin 7.4 g/dL (14.0-18.0); Mean Corpuscular HGB Conc 31.4 g/dl (32-36); Mean Corpuscular Hemoglobin 31.6 pg (26-34); Mean Corpuscular Volume 100.9 fl (80-100); Mean Platelet Volume 9.5 fl (7.4-10.4); Platelet Count Result 104 k/mm3 (150-375); Red Blood Count 2.34 M/mm3 (4.6-6.20); Red Cell Distribution Width 19.4 % (11.5-14.5); White Blood Count 9.5 K/mm3 (4.5-10.0)
[2021-12-13 05:38] LABS: Anion Gap 7 mmol/L (8-16); Blood Urea Nitrogen 22 mg/dL (9-20); Calcium 7.3 mg/dL (8.4-10.2); Carbon Dioxide 30 mmol/L (22-30); Chloride 102 mmol/L (98-107); Estimated CRCL calculation 23 ml/min; Estimated Glomerular Filt Rate 25; Glucose 101 mg/dL (65-110); Magnesium 1.7 mg/dL (1.6-2.3); Phosphorus 1.2 mg/dL (2.5-4.5); Potassium 3.3 mmol/L (3.4-5.0); Sodium 139 mmol/L (137-145)
--- NOTE | 2021-12-13 07:17 | WPDGIPROGNO ---
Progress Note: A&P Assessment and Plan (1) C. difficile colitis: Code(s): A04.72 - Enterocolitis due to Clostridium difficile, not specified as recurrent Status: Acute Assessment and Plan: Patient with C difficile colitis. Diarrhea appears to be improving. Plan to complete 10 day course of oral vancomycin. Continue regular diet. Disposition per primary care service (2) Hematoma of neck: Code(s): S10.93XA - Contusion of unspecified part of neck, initial encounter Status: Acute Assessment and Plan: large hematoma on neck. This likely contributes to recent decline in hemoglobin. Would avoid anticoagulation given this. (3) Stage 3b chronic kidney disease: Code(s): N18.32 - Chronic kidney disease, stage 3b Status: Chronic Assessment and Plan: End-stage renal disease. Currently followed by renal service. Subjective Date/time seen: 12/13/21 07:17 Patient alert comfortable this morning. Fecal tube now out. No recent stools. Passing flatus with no stool. Feels much improved. Review of Systems Review of Systems: Review of systems noncontributory. Exam Narrative: Physical exam reveals patient be alert. Vital signs stable. Comfortable at rest lying in bed. HEENT exam unremarkable. Large ecchymoses on left neck and shoulder. Lungs are clear. Heart without murmur. Abdomen bowel sounds present soft nontender with no organomegaly. Objective Data Vital Signs Vital Signs: Vital Signs - 24 hr 12/12/21 08:00 12/12/21 08:05 12/12/21 08:05 Temperature Pulse Rate 69 74 74 Respiratory Rate 16 Blood Pressure Pulse Oximetry 93 Oxygen Delivery Room Air 12/12/21 08:15 12/12/21 08:15 12/12/21 08:00 Temperature Pulse Rate 70 Respiratory Rate 16 Blood Pressure Pulse Oximetry 93 Oxygen Delivery Room Air 12/12/21 12:00 12/12/21 14:00 12/12/21 14:20 Temperature Pulse Rate 81 72 70 Respiratory Rate Blood Pressure 116/66 132/72 Pulse Oximetry Oxygen Delivery 12/12/21 13:55 12/12/21 14:40 12/12/21 15:00 Temperature 97.8 F Pulse Rate 74 80 84 Respiratory Rate 20 Blood Pressure 118/62 92/60 L 95/50 L Pulse Oximetry Oxygen Delivery 12/12/21 15:20 12/12/21 15:40 12/12/21 16:05 Temperature Pulse Rate 75 76 76 Respiratory Rate Blood Pressure 96/46 L 94/44 L 96/48 L Pulse Oximetry Oxygen Delivery 12/12/21 16:06 12/12/21 16:00 12/12/21 20:34 Temperature 97.8 F Pulse Rate 76 75 74 Respiratory Rate 20 16 Blood Pressure 114/62 Pulse Oximetry Oxygen Delivery 12/12/21 20:41 12/12/21 20:16 12/12/21 20:00 Temperature Pulse Rate 74 73 Respiratory Rate 16 Blood Pressure Pulse Oximetry 94 94 Oxygen Delivery Room Air Room Air 12/12/21 22:00 12/13/21 00:00 12/13/21 04:00 Temperature 98.0 F Pulse Rate 73 70 76 Respiratory Rate 18 Blood Pressure 122/61 Pulse Oximetry Oxygen Delivery 12/13/21 05:16 Temperature 98.2 F Pulse Rate 78 Respiratory Rate 16 Blood Pressure 118/52 L Pulse Oximetry 96 Oxygen Delivery Intake/Output Intake/Output: Intake & Output 12/10/21 12/11/21 12/12/21 12/13/21 23:59 23:59 23:59 23:59 Intake Total 1610 1208 1000 300 Output Total 501 483 4177 Balance 1210 1058 -200 300 Meds/Results Medications: Active Medications Generic Name Dose Route Start Last Admin Trade Name Freq PRN Reason Stop Dose Admin Acetaminophen 650 mg 12/09/21 09:00 12/10/21 00:46 Acetaminophen 325 Mg Tablet PO 650 mg Q6H PRN Administration Mild Pain (1-3) or Fever Hydrocodone Bitart/Acetaminophen 2 tab 12/07/21 04:06 12/13/21 05:13 Hydrocodone/Acetaminophen (*Crx) 5-325 Mg Tablet PO 2 tab Q4H PRN Administration Pain (Scale Score 4-6) Albuterol 2.5 mg 12/11/21 08:00 12/12/21 20:34 Albuterol Sulfate Neb 2.5 Mg/3 Ml Inh INHALATION 2.5 mg Q12HRT PUNEET Administration Altepla
[2021-12-13] MEDS: ALBUTEROL SULFATE NEB 2.5 MG/0.5 ML INH (08:21)
[2021-12-13] MEDS: FLUTICASONE/UMECLIDIN/VILANTER 100-62.5-25 MCG ELLIPTA 1 PUFF INHALATION (08:22)
[2021-12-13] MEDS: ALBUTEROL SULFATE NEB 2.5 MG/3 ML INH INHALATION ×2 (08:22→21:40)
[2021-12-13 08:23] LABS: Glucose Point of Care 99 mg/dl (65-105)
[2021-12-13] MEDS: GABAPENTIN 300 MG CAPSULE PO ×2 (08:23→17:05)
[2021-12-13] MEDS: ACIDOPHILUS/BULGARICUS CHEWABLE TABLET 1 TABLET PO ×2 (08:23→17:05)
[2021-12-13] MEDS: FIDAXOMICIN 200 MG TABLET PO ×2 (08:23→20:30)
[2021-12-13] MEDS: MIDODRINE HCL 10 MG TABLET PO ×3 (08:23→17:05)
[2021-12-13] MEDS: POTASSIUM CHLORIDE 20 MEQ PACKET (FOR LIQUID) PO (08:24)
[2021-12-13] MEDS: PANTOPRAZOLE SODIUM IV 40 MG VIAL IV PUSH ×2 (08:24→20:30)
[2021-12-13] MEDS: EUCERIN CREAM 120 GM JAR 1 APPLIC TOPICAL (08:26)
--- NOTE | 2021-12-13 10:56 | PCNFU ---
Nutrition Follow-Up Complete: Inadequate energy intake related to altered GI function as evidenced by colitis with NPO status for bowel rest. goal: Meet estimated needs Patient is meeting goal. No new goal. Pt current nutrition is Heart Healthy/DBCC Last recorded weight is 86.2 kg, up from 76.5 kg on admit. Bowel Motility:+Bm reported 12/13 Labs Reviewed:Cr 2.5,K 3.3,BUN 22, Alb 2.0 Meds Noted:Vancomycin, Midodrine,Banner, Protonix, Dificid, Lactinex Skin:Stage III pressure ulcer-Left Buttock Additional Notes: Patient ate 100% of breakfast today. Tolerating diet. Diet supplements of Lorenzo BID providing an additional 90 kcals and 2.5 gms protein for wound healing. Banantol Plus BID providing an additional 45 kcals for stool bulking. Agree with diet orders. Monitor for diet, intake, wt, labs. Follow up in 7 days.
--- NOTE | 2021-12-13 11:00 | PM.IMPN ---
Progress Note: A&P Assessment and Plan (1) C. difficile colitis: Code(s): A04.72 - Enterocolitis due to Clostridium difficile, not specified as recurrent Status: Acute Assessment and Plan: -patient started on PO vancomycin (12/06) -GI following the patient - will DC fecal management system. -add cholestyramine (2) Pancolitis: Code(s): K51.00 - Ulcerative (chronic) pancolitis without complications Status: Acute Assessment and Plan: Appreciate GI and surgical evaluation. See plan above. Continue antibiotics. (3) Sepsis: Code(s): A41.9 - Sepsis, unspecified organism Status: Acute Assessment and Plan: Improved (4) End stage renal disease: Code(s): N18.6 - End stage renal disease Status: Acute Assessment and Plan: Patient with end-stage renal disease on hemodialysis -nephrology has been consulted -dialysis will be done per Nephrology (5) Hypoalbuminemia due to protein-calorie malnutrition: Code(s): E88.09 - Other disorders of plasma-protein metabolism, not elsewhere classified; E46 - Unspecified protein-calorie malnutrition Status: Acute Assessment and Plan: monitor (6) Electrolyte abnormality: Code(s): E87.8 - Other disorders of electrolyte and fluid balance, not elsewhere classified Status: Acute Assessment and Plan: Monitor electrolytes (7) Decubitus ulcer: Code(s): L89.90 - Pressure ulcer of unspecified site, unspecified stage Status: Acute Assessment and Plan: Wound Care to see (8) Diabetes type 2, controlled: Code(s): E11.9 - Type 2 diabetes mellitus without complications Status: Acute Assessment and Plan: Monitor blood sugars. Insulin as needed (9) Acute hypokalemia: Code(s): E87.6 - Hypokalemia Status: Acute Assessment and Plan: monitor Subjective Date/time seen: 12/13/21 11:00 still having lose stool abd pain better Exam Narrative: Patient is comfortable, NAD HEENT: eyes are clear and none icteric LUNGS:Normal respiratory effort ABD: distended Lower extremities: no edema SKIN: nonjaundiced Neuro: grossly intact. Objective Data Vital Signs Vital Signs: Vital Signs - 24 hr 12/12/21 12:00 12/12/21 14:00 12/12/21 14:20 Temperature Pulse Rate 81 72 70 Respiratory Rate Blood Pressure 116/66 132/72 Pulse Oximetry Oxygen Delivery 12/12/21 13:55 12/12/21 14:40 12/12/21 15:00 Temperature 97.8 F Pulse Rate 74 80 84 Respiratory Rate 20 Blood Pressure 118/62 92/60 L 95/50 L Pulse Oximetry Oxygen Delivery 12/12/21 15:20 12/12/21 15:40 12/12/21 16:05 Temperature Pulse Rate 75 76 76 Respiratory Rate Blood Pressure 96/46 L 94/44 L 96/48 L Pulse Oximetry Oxygen Delivery 12/12/21 16:06 12/12/21 16:00 12/12/21 20:34 Temperature 97.8 F Pulse Rate 76 75 74 Respiratory Rate 20 16 Blood Pressure 114/62 Pulse Oximetry Oxygen Delivery 12/12/21 20:41 12/12/21 20:16 12/12/21 20:00 Temperature Pulse Rate 74 73 Respiratory Rate 16 Blood Pressure Pulse Oximetry 94 94 Oxygen Delivery Room Air Room Air 12/12/21 22:00 12/13/21 00:00 12/13/21 04:00 Temperature 98.0 F Pulse Rate 73 70 76 Respiratory Rate 18 Blood Pressure 122/61 Pulse Oximetry Oxygen Delivery 12/13/21 05:16 12/13/21 08:22 12/13/21 08:00 Temperature 98.2 F Pulse Rate 78 73 Respiratory Rate 16 16 Blood Pressure 118/52 L Pulse Oximetry 96 95 Oxygen Delivery Room Air 12/13/21 08:22 12/13/21 08:35 12/13/21 08:00 Temperature Pulse Rate 77 Respiratory Rate 16 Blood Pressure Pulse Oximetry Oxygen Delivery Room Air Room Air 12/13/21 08:00 Temperature Pulse Rate 78 Respiratory Rate Blood Pressure Pulse Oximetry Oxygen Delivery Intake/Output Intake/Output: Intake & Output 12/10/21 12/11/21 12/12/21
[2021-12-13 11:59] LABS: Glucose Point of Care 116 mg/dl (65-105)
--- NOTE | 2021-12-13 13:08 | P.PNNP_ITS ---
Progress Note: A&P Assessment and Plan (1) ROEL (acute kidney injury): Code(s): N17.9 - Acute kidney failure, unspecified Status: Acute Assessment and Plan: * due to ATN from infection on last hospitalization (COVID and C. diff colitis) * active C diff may make it difficult to recover . * it has been so long he may not recover at all (2) Stage 3b chronic kidney disease: Code(s): N18.32 - Chronic kidney disease, stage 3b Status: Chronic Assessment and Plan: * baseline creatinine usually runs ~ 1.9 - 2.5mg/dl * felt to be secondary to diabetes, hypertension, vascular disease, and age. (3) C. difficile colitis: Code(s): A04.72 - Enterocolitis due to Clostridium difficile, not specified as recurrent Status: Acute Assessment and Plan: * recurrent issue/problem * first diagnosed in October 2021 * [facility] been [facility]nuem[facility]) * however, he was already having diarrhea issues before this antibiotic use * Currently on PO vancomycin as well as fidaxomicin * getting regular diet * no belly pain * still has some diarrhea. (4) Anemia: Code(s): D64.9 - Anemia, unspecified Status: Chronic Assessment and Plan: * hemoglobin up and down Now 7.4 * Gastroenterology already following * PRBC transfusion per protocol * on PPI * Continue Epogen with HD (5) Hypokalemia: Code(s): E87.6 - Hypokalemia Status: Acute Assessment and Plan: * Potassium okay today. (6) Sepsis: Code(s): A41.9 - Sepsis, unspecified organism Status: Acute Assessment and Plan: * Doing better on antibiotics. (7) Diabetes type 2, controlled: Code(s): E11.9 - Type 2 diabetes mellitus without complications Status: Acute Assessment and Plan: * management per hospitalists and assistant baseball coach. Subjective Date/time seen: 12/13/21 13:08 Interval history: Miky is feeling about the same today. He ate some breakfast but not launch. I never eat lunch no belly pain. Exam Narrative: General: ill appearing male in NAD Heart: normal S1 and S2; no rub or gallop Lungs: clear Abdomen: soft, less TTP, nondistended, positive bowel sounds Extremities: trace to 1+ edema Skin: no rash Objective Data Vital Signs Vital Signs: Vital Signs - 24 hr 12/12/21 14:00 12/12/21 14:20 12/12/21 13:55 Temperature 36.6 C Pulse Rate 72 70 74 Respiratory Rate 20 Blood Pressure 116/66 132/72 118/62 Pulse Oximetry Oxygen Delivery 12/12/21 14:40 12/12/21 15:00 12/12/21 15:20 Temperature Pulse Rate 80 84 75 Respiratory Rate Blood Pressure 92/60 L 95/50 L 96/46 L Pulse Oximetry Oxygen Delivery 12/12/21 15:40 12/12/21 16:05 12/12/21 16:06 Temperature 36.6 C Pulse Rate 76 76 76 Respiratory Rate 20 Blood Pressure 94/44 L 96/48 L 114/62 Pulse Oximetry Oxygen Delivery 12/12/21 16:00 12/12/21 20:34 12/12/21 20:41 Temperature Pulse Rate 75 74 Respiratory Rate 16 Blood Pressure Pulse Oxi
--- NOTE | 2021-12-13 13:08 | PM.PNNEP ---
Progress Note: A&P Assessment and Plan (1) ROEL (acute kidney injury): Code(s): N17.9 - Acute kidney failure, unspecified Status: Acute Assessment and Plan: due to ATN from infection on last hospitalization (COVID and C. diff colitis) active C diff may make it difficult to recover . it has been so long he may not recover at all (2) Stage 3b chronic kidney disease: Code(s): N18.32 - Chronic kidney disease, stage 3b Status: Chronic Assessment and Plan: baseline creatinine usually runs ~ 1.9 - 2.5mg/dl felt to be secondary to diabetes, hypertension, vascular disease, and age. (3) C. difficile colitis: Code(s): A04.72 - Enterocolitis due to Clostridium difficile, not specified as recurrent Status: Acute Assessment and Plan: recurrent issue/problem first diagnosed in October 2021 may have been exacerbated by [facility] (being treated for possible pnuemonia) however, he was already having diarrhea issues before this antibiotic use Currently on PO vancomycin as well as fidaxomicin getting regular diet no belly pain still has some diarrhea. (4) Anemia: Code(s): D64.9 - Anemia, unspecified Status: Chronic Assessment and Plan: hemoglobin up and down Now 7.4 Gastroenterology already following PRBC transfusion per protocol on PPI Continue Epogen with HD (5) Hypokalemia: Code(s): E87.6 - Hypokalemia Status: Acute Assessment and Plan: Potassium okay today. (6) Sepsis: Code(s): A41.9 - Sepsis, unspecified organism Status: Acute Assessment and Plan: Doing better on antibiotics. (7) Diabetes type 2, controlled: Code(s): E11.9 - Type 2 diabetes mellitus without complications Status: Acute Assessment and Plan: management per hospitalists and business banking manager. Subjective Date/time seen: 12/13/21 13:08 Interval history: Miky is feeling about the same today. He ate some breakfast but not launch. I never eat lunch no belly pain. Exam Narrative: General: ill appearing male in NAD Heart: normal S1 and S2; no rub or gallop Lungs: clear Abdomen: soft, less TTP, nondistended, positive bowel sounds Extremities: trace to 1+ edema Skin: no rash Objective Data Vital Signs Vital Signs: Vital Signs - 24 hr 12/12/21 14:00 12/12/21 14:20 12/12/21 13:55 Temperature 36.6 C Pulse Rate 72 70 74 Respiratory Rate 20 Blood Pressure 116/66 132/72 118/62 Pulse Oximetry Oxygen Delivery 12/12/21 14:40 12/12/21 15:00 12/12/21 15:20 Temperature Pulse Rate 80 84 75 Respiratory Rate Blood Pressure 92/60 L 95/50 L 96/46 L Pulse Oximetry Oxygen Delivery 12/12/21 15:40 12/12/21 16:05 12/12/21 16:06 Temperature 36.6 C Pulse Rate 76 76 76 Respiratory Rate 20 Blood Pressure 94/44 L 96/48 L 114/62 Pulse Oximetry Oxygen Delivery 12/12/21 16:00 12/12/21 20:34 12/12/21 20:41 Temperature Pulse Rate 75 74 Respiratory Rate 16 Blood Pressure Pulse Oximetry 94 Oxygen Delivery Room Air 12/12/21 20:16 12/12/21 20:00 12/12/21 22:00 Temperature 36.7 C Pulse Rate 74 73 73 Respiratory Rate 16 18 Blood Pressure 122/61 Pulse Oximetry 94 Oxygen Delivery Room Air 12/13/21 00:00 12/13/21 04:00 12/13/21 05:16 Temperature 36.8 C Pulse Rate 70 76 78 Respiratory Rate 16 Blood Pressure 118/52 L Pulse Oximetry 96 Oxygen Delivery 12/13/21 08:22 12/13/21 08:00 12/13/21 08:22 Temperature Pulse Rate 73 77 Respiratory Rate 16 16 Blood Pressure Pulse Oximetry 95 Oxygen Delivery Room Air 12/13/21 08:35 12/13/21 09:09 12/13/21 08:00 Temperature Pulse Rate Respiratory Rate Blood Pressure Pulse Oximetry Oxygen Delivery Room Air Room Air Room Air 12/13/21 08:00 12/13/21 12:00 Temperature Pulse Rate
--- NOTE | 2021-12-13 14:19 | WPDCDIQUERY2 ---
CDI Query Clarification Request 12/06 ER physician documented: -Clinical Impression: -?Pancolitis, Acute hypokalemia, Leukocytosis ?12/07 Critical care documented: -Sepsis: ?Code(s): A41.9 - Sepsis, unspecified organism ?Status:?Acute ?Assessment and Plan: Patient with hypotension, leukocytosis -source pancolitis, C diff -stool for C diff was positive on 12/06/2021 -continue p.o. vancomycin and fidaxomicin -patient's systolic blood pressures run in the 90s to 100s, -given his albumin is significantly low at 1.5 with protein calorie malnutrition -will give albumin and Hespan -patient has end-stage renal disease on dialysis, will try to match fluid losses with diarrhea -check lactic acid level Please clarify if Sepsis was present on admission.
[2021-12-13 16:59] LABS: Glucose Point of Care 133 mg/dl (65-105)
[2021-12-13] MEDS: CHOLESTYRAMINE LIGHT 4 GM POWD.PACK PO (18:11)
[2021-12-14] VITALS (26 sets, daily range): BP systolic 85–138; BP diastolic 34–62; PULSE 66–85; RESP 14–20; TEMP 36.4–37; O2SAT 96–98
[2021-12-14] MEDS: VANCOMYCIN ORAL 500 MG/10 ML SYRUP PO ×5 (00:07→23:39)
[2021-12-14] MEDS: CENTRAL LINE FLUSH 10 ML IV PUSH ×4 (05:47→21:10)
[2021-12-14] MEDS: CENTRAL LINE FLUSH 20 ML IV PUSH (05:47)
[2021-12-14 06:04] LABS: Hematocrit 25.5 % (42.0-52.0); Hemoglobin 7.9 g/dL (14.0-18.0); Mean Corpuscular Hemoglobin 31.7 pg (26-34); Mean Corpuscular Volume 102.4 fl (80-100); Mean Platelet Volume 9.5 fl (7.4-10.4); Platelet Count Result 113 k/mm3 (150-375); Red Blood Count 2.49 M/mm3 (4.6-6.20); Red Cell Distribution Width 19.3 % (11.5-14.5); White Blood Count 9.2 K/mm3 (4.5-10.0)
[2021-12-14 06:13] LABS: Albumin Level 2.2 g/dL (3.5-5.1); Anion Gap 5 mmol/L (8-16); Blood Urea Nitrogen 31 mg/dL (9-20); Carbon Dioxide 28 mmol/L (22-30); Chloride 103 mmol/L (98-107); Estimated CRCL calculation 20 ml/min; Estimated Glomerular Filt Rate 21; Glucose 87 mg/dL (65-110); Magnesium 1.7 mg/dL (1.6-2.3); Phosphorus 1.7 mg/dL (2.5-4.5); Potassium 3.2 mmol/L (3.4-5.0); Sodium 136 mmol/L (137-145)
[2021-12-14] MEDS: FLUTICASONE/UMECLIDIN/VILANTER 100-62.5-25 MCG ELLIPTA 1 PUFF INHALATION (08:19)
[2021-12-14] MEDS: ALBUTEROL SULFATE NEB 2.5 MG/3 ML INH INHALATION ×2 (08:19→20:00)
[2021-12-14 08:38] LABS: Glucose Point of Care 91 mg/dl (65-105)
--- NOTE | 2021-12-14 10:35 | WPDGIPROGNO ---
Progress Note: A&P Assessment and Plan (1) C. difficile colitis: Code(s): A04.72 - Enterocolitis due to Clostridium difficile, not specified as recurrent Status: Acute Assessment and Plan: Patient with C difficile colitis. continue medical treatment tolerating diet and no much of abdominal pain (2) Hematoma of neck: Code(s): S10.93XA - Contusion of unspecified part of neck, initial encounter Status: Acute Assessment and Plan: This likely contributes to recent decline in hemoglobin, also he has advanced renal disease, no overt gib. (3) End stage renal disease: Code(s): N18.6 - End stage renal disease Status: Acute Assessment and Plan: on dialysis today (4) Pancolitis: Code(s): K51.00 - Ulcerative (chronic) pancolitis without complications Status: Acute (5) Hypoalbuminemia due to protein-calorie malnutrition: Code(s): E88.09 - Other disorders of plasma-protein metabolism, not elsewhere classified; E46 - Unspecified protein-calorie malnutrition Status: Acute Subjective Date/time seen: 12/14/21 10:35 Interval history: had 2 loose stools this am, now on dialysis, no new events Review of Systems Review of Systems: All systems reviewed & are unremarkable except as noted in HPI and below Exam Const: General: comfortable and no acute distress Orientation/consciousness: oriented to person, oriented to place and oriented to time HENMT: General nose exam: Normal nares present Eyes: General: appearance normal, both eyes and all related structures Neck: Neck: no JVD Resp: Auscultation: clear to auscultation bilaterally Cardio: Rate: regular rate Rhythm: regular rhythm GI: Inspection: non-distended GI Palp: Yes Soft to palpation Auscultation: normal bowel sounds Skin: General skin exam: normal color Neuro: Speech: normal speech Extrem: General: normal to inspection Psych: Mental Status: mental status grossly normal Objective Data Vital Signs Vital Signs: Vital Signs - 24 hr 12/13/21 12:00 12/13/21 14:00 12/13/21 16:00 Temperature 98.3 F Pulse Rate 63 76 68 Respiratory Rate 16 Blood Pressure 122/60 Pulse Oximetry 97 12/13/21 20:17 12/13/21 20:00 12/14/21 00:00 Temperature 98 F Pulse Rate 64 64 73 Respiratory Rate 12 Blood Pressure 140/52 L Pulse Oximetry 99 12/14/21 04:00 12/14/21 06:00 12/14/21 08:20 Temperature 98.6 F Pulse Rate 71 74 78 Respiratory Rate 16 20 Blood Pressure 100/56 L Pulse Oximetry 98 12/14/21 08:28 12/14/21 08:48 12/14/21 09:11 Temperature Pulse Rate 66 72 77 Respiratory Rate 18 Blood Pressure 130/57 L 94/47 L Pulse Oximetry 12/14/21 08:38 12/14/21 09:20 12/14/21 09:40 Temperature 98.2 F Pulse Rate 76 82 85 Respiratory Rate 20 Blood Pressure 132/54 L 92/34 L 85/36 L Pulse Oximetry 12/14/21 10:00 12/14/21 10:20 Temperature Pulse Rate 75 70 Respiratory Rate Blood Pressure 105/51 L 118/56 L Pulse Oximetry Intake/Output Intake/Output: Intake & Output 12/11/21 12/12/21 12/13/21 12/14/21 23:59 23:59 23:59 23:59 Intake Total 1208 1000 690 100 Output Total 150 1200 150 Balance 1058 -200 540 100 Meds/Results Medications: Active Medications Generic Name Dose Route Start Last Admin Trade Name Freq PRN Reason Stop Dose Admin Acetaminophen 650 mg 12/09/21 09:00 12/10/21 00:46 Acetaminophen 325 Mg Tablet PO 650 mg Q6H PRN Administration Mild Pain (1-3) or Fever Hydrocodone Bitart/Acetaminophen 2 tab 12/07/21 04:06 12/13/21 05:13 Hydrocodone/Acetaminophen (*Crx) 5-325 Mg Tablet PO 2 tab Q4H PRN Administration Pain (Scale Score 4-6) Albuterol 2.5 mg 12/11/21 08:00 12/14/21 08:19 Albuterol Sulfate Neb 2.5 Mg/3 Ml Inh INHALATION 2.5 mg Q12HRT PUNEET Administration Alteplase, Recombinant 2 mg 12/11/21 15:14 12/11/21 15:51 Alteplase 2 Mg Vial (Cathflo) IV PUS
--- NOTE | 2021-12-14 11:20 | P.PNNP_ITS ---
Progress Note: A&P Assessment and Plan (1) ROEL (acute kidney injury): Code(s): N17.9 - Acute kidney failure, unspecified Status: Acute Assessment and Plan: * due to ATN from infection on last hospitalization (COVID and C. diff colitis) * active C diff may make it difficult to recover . * it has been so long he may not recover at all (2) Stage 3b chronic kidney disease: Code(s): N18.32 - Chronic kidney disease, stage 3b Status: Chronic Assessment and Plan: * baseline creatinine usually runs ~ 1.9 - 2.5mg/dl * felt to be secondary to diabetes, hypertension, vascular disease, and age. (3) C. difficile colitis: Code(s): A04.72 - Enterocolitis due to Clostridium difficile, not specified as recurrent Status: Acute Assessment and Plan: * recurrent issue/problem * first diagnosed in October 2021 * may have been exacerbated by [facility]quin use [facility] (being treated for possible pnuemonia) * however, he was already having diarrhea issues before this antibiotic use * Currently on PO vancomycin as well as fidaxomicin * still smoldering somewhat. FMS is out. (4) Anemia: Code(s): D64.9 - Anemia, unspecified Status: Chronic Assessment and Plan: * hemoglobin up and down * On Epogen with dialysis. * GI on the case (5) Hypokalemia: Code(s): E87.6 - Hypokalemia Status: Acute Assessment and Plan: * Potassium a bit low today. * phosphorus is low as well. Will give Neutra-Phos for couple doses today (6) Sepsis: Code(s): A41.9 - Sepsis, unspecified organism Status: Acute Assessment and Plan: * Doing better on antibiotics. (7) Diabetes type 2, controlled: Code(s): E11.9 - Type 2 diabetes mellitus without complications Status: Acute Assessment and Plan: * management per hospitalists. Subjective Date/time seen: 12/14/21 11:20 Interval history: Miky is feeling about the same today. He had 2 liquid stools yesterday he says. He is on dialysis now and tolerating it well. His blood pressure dropped with attempt at ultrafiltration so his ultrafiltration goal was reduced. His blood pressure is doing okay now. He was seen at 10:30 a.m. Exam Narrative: General: ill appearing male in NAD Heart: normal S1 and S2; no rub or gallop Lungs: clear bilateral Abdomen: soft, less TTP, nondistended, positive bowel sounds Extremities: trace to 1+ edema Skin: no rash or subcu nodules Objective Data Vital Signs Vital Signs: Vital Signs - 24 hr 12/13/21 12:00 12/13/21 14:00 12/13/21 16:00 Temperature 36.8 C Pulse Rate 63 76 68 Respiratory Rate 16 Blood Pressure 122/60 Pulse Oximetry 97 12/13/21 20:17 12/13/21 20:00 12/14/21 00:00 Temperature 36.6 C Pulse Rate 64 64 73 Respiratory Rate 12 Blood Pressure 140/52 L Pulse Oximetry 99 12/14/21 04:00 12/14/21 06:00 12/14/21 08:20 Temperature 37.0 C Pulse Rate 71 74 78 Respiratory Rate 16 20 Blood Pressure 100/56 L Pulse Oximetry 98 12/14/21 08:28 12/14/21 08:48 12/14/21 09:11 Temperature Pulse Rate 66 72 77 Respir
--- NOTE | 2021-12-14 11:20 | PM.PNNEP ---
Progress Note: A&P Assessment and Plan (1) ROEL (acute kidney injury): Code(s): N17.9 - Acute kidney failure, unspecified Status: Acute Assessment and Plan: due to ATN from infection on last hospitalization (COVID and C. diff colitis) active C diff may make it difficult to recover . it has been so long he may not recover at all (2) Stage 3b chronic kidney disease: Code(s): N18.32 - Chronic kidney disease, stage 3b Status: Chronic Assessment and Plan: baseline creatinine usually runs ~ 1.9 - 2.5mg/dl felt to be secondary to diabetes, hypertension, vascular disease, and age. (3) C. difficile colitis: Code(s): A04.72 - Enterocolitis due to Clostridium difficile, not specified as recurrent Status: Acute Assessment and Plan: recurrent issue/problem first diagnosed in October 2021 may have been exacerbated by recent levaquin use at care home (being treated for possible pnuemonia) however, he was already having diarrhea issues before this antibiotic use Currently on PO vancomycin as well as fidaxomicin still smoldering somewhat. FMS is out. (4) Anemia: Code(s): D64.9 - Anemia, unspecified Status: Chronic Assessment and Plan: hemoglobin up and down On Epogen with dialysis. GI on the case (5) Hypokalemia: Code(s): E87.6 - Hypokalemia Status: Acute Assessment and Plan: Potassium a bit low today. phosphorus is low as well. Will give Neutra-Phos for couple doses today (6) Sepsis: Code(s): A41.9 - Sepsis, unspecified organism Status: Acute Assessment and Plan: Doing better on antibiotics. (7) Diabetes type 2, controlled: Code(s): E11.9 - Type 2 diabetes mellitus without complications Status: Acute Assessment and Plan: management per hospitalists. Subjective Date/time seen: 12/14/21 11:20 Interval history: Miky is feeling about the same today. He had 2 liquid stools yesterday he says. He is on dialysis now and tolerating it well. His blood pressure dropped with attempt at ultrafiltration so his ultrafiltration goal was reduced. His blood pressure is doing okay now. He was seen at 10:30 a.m. Exam Narrative: General: ill appearing male in NAD Heart: normal S1 and S2; no rub or gallop Lungs: clear bilateral Abdomen: soft, less TTP, nondistended, positive bowel sounds Extremities: trace to 1+ edema Skin: no rash or subcu nodules Objective Data Vital Signs Vital Signs: Vital Signs - 24 hr 12/13/21 12:00 12/13/21 14:00 12/13/21 16:00 Temperature 36.8 C Pulse Rate 63 76 68 Respiratory Rate 16 Blood Pressure 122/60 Pulse Oximetry 97 12/13/21 20:17 12/13/21 20:00 12/14/21 00:00 Temperature 36.6 C Pulse Rate 64 64 73 Respiratory Rate 12 Blood Pressure 140/52 L Pulse Oximetry 99 12/14/21 04:00 12/14/21 06:00 12/14/21 08:20 Temperature 37.0 C Pulse Rate 71 74 78 Respiratory Rate 16 20 Blood Pressure 100/56 L Pulse Oximetry 98 12/14/21 08:28 12/14/21 08:48 12/14/21 09:11 Temperature Pulse Rate 66 72 77 Respiratory Rate 18 Blood Pressure 130/57 L 94/47 L Pulse Oximetry 12/14/21 08:38 12/14/21 09:20 12/14/21 09:40 Temperature 36.8 C Pulse Rate 76 82 85 Respiratory Rate 20 Blood Pressure 132/54 L 92/34 L 85/36 L Pulse Oximetry 12/14/21 10:00 12/14/21 10:20 12/14/21 10:40 Temperature Pulse Rate 75 70 74 Respiratory Rate Blood Pressure 105/51 L 118/56 L 104/47 L Pulse Oximetry 12/14/21 11:00 Temperature Pulse Rate 75 Respiratory Rate Blood Pressure 132/57 L Pulse Oximetry Intake/Output Intake/Output: Intake & Output 12/11/21 12/12/21 12/13/21 12/14/21 23:59 23:59 23:59 23:59 Intake Total 1208 1000 690 100 Output Total 150 1200 150 Balance 1058 -200 540 100 Meds/Results Medications: Active Medicatio
[2021-12-14 12:23] LABS: Glucose Point of Care 97 mg/dl (65-105)
[2021-12-14] MEDS: POTASSIUM CHLORIDE 20 MEQ PACKET (FOR LIQUID) PO (12:40)
[2021-12-14] MEDS: POTASSIUM CHLORIDE 20 MEQ TABLET PO (12:41)
[2021-12-14] MEDS: MIDODRINE HCL 10 MG TABLET PO ×3 (12:41→17:57)
[2021-12-14] MEDS: PANTOPRAZOLE SODIUM IV 40 MG VIAL IV PUSH ×2 (12:43→21:09)
[2021-12-14] MEDS: FIDAXOMICIN 200 MG TABLET PO ×2 (12:43→21:09)
[2021-12-14] MEDS: ACIDOPHILUS/BULGARICUS CHEWABLE TABLET 1 TABLET PO ×2 (12:43→17:57)
[2021-12-14] MEDS: GABAPENTIN 300 MG CAPSULE PO ×2 (12:43→17:56)
[2021-12-14] MEDS: EUCERIN CREAM 120 GM JAR 1 APPLIC TOPICAL (12:44)
[2021-12-14] MEDS: POTASSIUM/PHOSPHORUS/SODIUM 1.5 GM PACKET 1 PACKET PO ×2 (12:45→21:09)
[2021-12-14] MEDS: HYDROcodone/acetaminophen (*CRX) 5-325 MG TABLET 2 TAB PO (13:21)
[2021-12-14] MEDS: CHOLESTYRAMINE LIGHT 4 GM POWD.PACK PO ×2 (13:22→18:34)
--- NOTE | 2021-12-14 15:25 | PM.IMPN ---
Progress Note: A&P Assessment and Plan (1) C. difficile colitis: Code(s): A04.72 - Enterocolitis due to Clostridium difficile, not specified as recurrent Status: Acute Assessment and Plan: -patient started on PO vancomycin (12/06) -GI following the patient - will [facility] fecal management system. -add cholestyramine 12/14/2021 interval history: 81-year-old male with C diff colitis being treated with oral vancomycin since 12/06 patient FMS was removed and his stool are forming, his whites counts are trending down, he able tolerate his diet, patient patient with ROEL on CKD seen by drier operator suspect worsening kidney function 2/2 DM, HTN, and PVD and now with C diff infection and kidney function may never improve, and patient is having HD, will continue to monitor and further recommendation to follow. (2) Pancolitis: Code(s): K51.00 - Ulcerative (chronic) pancolitis without complications Status: Acute Assessment and Plan: Appreciate GI and surgical evaluation. See plan above. Continue antibiotics. (3) Sepsis: Code(s): A41.9 - Sepsis, unspecified organism Status: Acute Assessment and Plan: Improved (4) End stage renal disease: Code(s): N18.6 - End stage renal disease Status: Acute Assessment and Plan: Patient with end-stage renal disease on hemodialysis -nephrology has been consulted -dialysis will be done per Nephrology (5) Hypoalbuminemia due to protein-calorie malnutrition: Code(s): E88.09 - Other disorders of plasma-protein metabolism, not elsewhere classified; E46 - Unspecified protein-calorie malnutrition Status: Acute Assessment and Plan: monitor (6) Electrolyte abnormality: Code(s): E87.8 - Other disorders of electrolyte and fluid balance, not elsewhere classified Status: Acute Assessment and Plan: Monitor electrolytes (7) Decubitus ulcer: Code(s): L89.90 - Pressure ulcer of unspecified site, unspecified stage Status: Acute Assessment and Plan: Wound Care to see (8) Diabetes type 2, controlled: Code(s): E11.9 - Type 2 diabetes mellitus without complications Status: Acute Assessment and Plan: Monitor blood sugars. Insulin as needed (9) Acute hypokalemia: Code(s): E87.6 - Hypokalemia Status: Acute Assessment and Plan: monitor Subjective Date/time seen: 12/14/21 15:25 12/14/2021 interval history: 81-year-old male with C diff colitis being treated with oral vancomycin since 12/06 patient FMS was removed and his stool are forming, his whites counts are trending down, he able tolerate his diet, patient patient with ROEL on CKD seen by drier operator suspect worsening kidney function 2/2 DM, HTN, and PVD and now with C diff infection and kidney function may never improve, and patient is having HD, will continue to monitor and further recommendation to follow. Review of Systems Review of Systems: All systems reviewed & are unremarkable except as noted in HPI and below Exam Narrative: Patient is comfortable, NAD HEENT: eyes are clear and none icteric LUNGS:Normal respiratory effort ABD: distended Lower extremities: no edema SKIN: nonjaundiced Neuro: grossly intact. Objective Data Vital Signs Vital Signs: Vital Signs - 24 hr 12/13/21 16:00 12/13/21 20:17 12/13/21 20:00 Temperature 98 F Pulse Rate 68 64 64 Respiratory Rate 12 Blood Pressure 140/52 L Pulse Oximetry 99 Oxygen Delivery 12/14/21 00:00 12/14/21 04:00 12/14/21 06:00 Temperature 98.6 F Pulse Rate 73 71 74 Respiratory Rate 16 Blood Pressure 100/56 L Pulse Oximetry 98 Oxygen Delivery 12/14/21 08:20 12/14/21 08:28 12/14/21 08:48 Temperature Pulse Rate 78 66 72 Respiratory Rate 20 18 Blood Pressure 130/57 L Pulse Oximetry Oxygen Delivery 12/14/21 09:11 12/14/21 08:38 12/14/21 09:20 Temperature 98.2 F Pulse Rate 7
[2021-12-14] MEDS: ALTEPLASE 2 MG VIAL (CATHFLO) IV PUSH ×2 (16:30→16:35)
[2021-12-14 17:34] LABS: Glucose Point of Care 97 mg/dl (65-105)
[2021-12-14] MEDS: ALBUTEROL SULFATE NEB 2.5 MG/0.5 ML INH (20:22)
[2021-12-14 20:42] LABS: Glucose Point of Care 115 mg/dl (65-105)
[2021-12-15] VITALS (12 sets, daily range): BP systolic 114–126; BP diastolic 50–59; PULSE 72–96; RESP 14–18; TEMP 36.5–37.4; O2SAT 93–99
[2021-12-15] MEDS: VANCOMYCIN ORAL 500 MG/10 ML SYRUP PO ×3 (05:18→21:53)
[2021-12-15] MEDS: CENTRAL LINE FLUSH 10 ML IV PUSH ×3 (05:19→21:53)
[2021-12-15] MEDS: CENTRAL LINE FLUSH 20 ML IV PUSH (05:19)
[2021-12-15 05:32] LABS: Hematocrit 22.2 % (42.0-52.0); Hemoglobin 7.1 g/dL (14.0-18.0); Mean Corpuscular Hemoglobin 32.1 pg (26-34); Mean Corpuscular Volume 100.5 fl (80-100); Mean Platelet Volume 9.6 fl (7.4-10.4); Platelet Count Result 109 k/mm3 (150-375); Red Blood Count 2.21 M/mm3 (4.6-6.20); Red Cell Distribution Width 19.4 % (11.5-14.5); White Blood Count 8.1 K/mm3 (4.5-10.0)
[2021-12-15 05:47] LABS: Anion Gap 5 mmol/L (8-16); Blood Urea Nitrogen 15 mg/dL (9-20); Calcium 7.6 mg/dL (8.4-10.2); Carbon Dioxide 31 mmol/L (22-30); Chloride 99 mmol/L (98-107); Estimated CRCL calculation 29 ml/min; Estimated Glomerular Filt Rate 32; Glucose 80 mg/dL (65-110); Magnesium 1.7 mg/dL (1.6-2.3); Phosphorus 1.6 mg/dL (2.5-4.5); Potassium 3.3 mmol/L (3.4-5.0); Sodium 135 mmol/L (137-145)
[2021-12-15] MEDS: FLUTICASONE/UMECLIDIN/VILANTER 100-62.5-25 MCG ELLIPTA 1 PUFF INHALATION (07:30)
[2021-12-15] MEDS: ALBUTEROL SULFATE NEB 2.5 MG/3 ML INH INHALATION ×2 (07:30→20:29)
[2021-12-15 08:03] LABS: Glucose Point of Care 83 mg/dl (65-105)
--- NOTE | 2021-12-15 08:11 | P.PNNP_ITS ---
Progress Note: A&P Assessment and Plan (1) ROEL (acute kidney injury): Code(s): N17.9 - Acute kidney failure, unspecified Status: Acute Assessment and Plan: * due to ATN from infection on last hospitalization (COVID and C. diff colitis) * active C diff may make it difficult to recover . * it has been so long he may not recover at all (2) Stage 3b chronic kidney disease: Code(s): N18.32 - Chronic kidney disease, stage 3b Status: Chronic Assessment and Plan: * baseline creatinine usually runs ~ 1.9 - 2.5mg/dl * felt to be secondary to diabetes, hypertension, vascular disease, and age. (3) C. difficile colitis: Code(s): A04.72 - Enterocolitis due to Clostridium difficile, not specified as recurrent Status: Acute Assessment and Plan: * recurrent issue/problem * first diagnosed in October 2021 * may have been exacerbated by [facility]va[facility] use [facility] (being treated for possible pnuemonia) * however, he was already having diarrhea issues before this antibiotic use * Currently on PO vancomycin and fidaxomicin * still smoldering somewhat. FMS is out. (4) Anemia: Code(s): D64.9 - Anemia, unspecified Status: Chronic Assessment and Plan: * hemoglobin bouncing around substantially. * Today's value was 7.1. * Retic count on 12/09/2021 was 2.7. * On Epogen with dialysis. * Will increase the dose (5) Hypokalemia: Code(s): E87.6 - Hypokalemia Status: Acute Assessment and Plan: * Potassium a bit low today. * phosphorus is low as well. * Possibly refeeding phenomenon? * He is not on binders * Will supplement Neutra-Phos again. (6) Sepsis: Code(s): A41.9 - Sepsis, unspecified organism Status: Acute Assessment and Plan: * Doing better on antibiotics. (7) Diabetes type 2, controlled: Code(s): E11.9 - Type 2 diabetes mellitus without complications Status: Acute Assessment and Plan: * management per hospitalists. Subjective Date/time seen: 12/15/21 08:11 Interval history: Miky is feeling about the same today. No belly pain other than when he drinks ice cold water. But this is a chronic issue. He had dialysis yesterday and did well for the rest of the treatment Exam Narrative: General: ill appearing male in NAD Heart: normal S1 and S2; no rub or gallop Lungs: clear to auscultation Abdomen: soft, less TTP, nondistended, positive bowel sounds Extremities: trace edema Skin: no rash Objective Data Vital Signs Vital Signs: Vital Signs - 24 hr 12/14/21 08:20 12/14/21 08:28 12/14/21 08:48 Temperature Pulse Rate 78 66 72 Respiratory Rate 20 18 Blood Pressure 130/57 L Pulse Oximetry Oxygen Delivery 12/14/21 09:11 12/14/21 08:38 12/14/21 09:20 Temperature 36.8 C Pulse Rate 77 76 82 Respiratory Rate 20 Blood Pressure 94/47 L 132/54 L 92/34 L Pulse Oximetry Oxygen Delivery 12/14/21 09:40 12/14/21 10:00 12/14/21 10:20 Temperature Pulse Rate 85 75 70 Respiratory Rate Blood Pressure 85/36 L 105/51 L 118/56 L Pulse Oximetry Oxygen Delivery 12/14
--- NOTE | 2021-12-15 08:11 | PM.PNNEP ---
Progress Note: A&P Assessment and Plan (1) ROEL (acute kidney injury): Code(s): N17.9 - Acute kidney failure, unspecified Status: Acute Assessment and Plan: due to ATN from infection on last hospitalization (COVID and C. diff colitis) active C diff may make it difficult to recover . it has been so long he may not recover at all (2) Stage 3b chronic kidney disease: Code(s): N18.32 - Chronic kidney disease, stage 3b Status: Chronic Assessment and Plan: baseline creatinine usually runs ~ 1.9 - 2.5mg/dl felt to be secondary to diabetes, hypertension, vascular disease, and age. (3) C. difficile colitis: Code(s): A04.72 - Enterocolitis due to Clostridium difficile, not specified as recurrent Status: Acute Assessment and Plan: recurrent issue/problem first diagnosed in October 2021 may have been exacerbated by recent [facility] use [facility] (being treated for possible pnuemonia) however, he was already having diarrhea issues before this antibiotic use Currently on PO vancomycin and fidaxomicin still smoldering somewhat. FMS is out. (4) Anemia: Code(s): D64.9 - Anemia, unspecified Status: Chronic Assessment and Plan: hemoglobin bouncing around substantially. Today's value was 7.1. Retic count on 12/09/2021 was 2.7. On Epogen with dialysis. Will increase the dose (5) Hypokalemia: Code(s): E87.6 - Hypokalemia Status: Acute Assessment and Plan: Potassium a bit low today. phosphorus is low as well. Possibly refeeding phenomenon? He is not on binders Will supplement Neutra-Phos again. (6) Sepsis: Code(s): A41.9 - Sepsis, unspecified organism Status: Acute Assessment and Plan: Doing better on antibiotics. (7) Diabetes type 2, controlled: Code(s): E11.9 - Type 2 diabetes mellitus without complications Status: Acute Assessment and Plan: management per hospitalists. Subjective Date/time seen: 12/15/21 08:11 Interval history: Miky is feeling about the same today. No belly pain other than when he drinks ice cold water. But this is a chronic issue. He had dialysis yesterday and did well for the rest of the treatment Exam Narrative: General: ill appearing male in NAD Heart: normal S1 and S2; no rub or gallop Lungs: clear to auscultation Abdomen: soft, less TTP, nondistended, positive bowel sounds Extremities: trace edema Skin: no rash Objective Data Vital Signs Vital Signs: Vital Signs - 24 hr 12/14/21 08:20 12/14/21 08:28 12/14/21 08:48 Temperature Pulse Rate 78 66 72 Respiratory Rate 20 18 Blood Pressure 130/57 L Pulse Oximetry Oxygen Delivery 12/14/21 09:11 12/14/21 08:38 12/14/21 09:20 Temperature 36.8 C Pulse Rate 77 76 82 Respiratory Rate 20 Blood Pressure 94/47 L 132/54 L 92/34 L Pulse Oximetry Oxygen Delivery 12/14/21 09:40 12/14/21 10:00 12/14/21 10:20 Temperature Pulse Rate 85 75 70 Respiratory Rate Blood Pressure 85/36 L 105/51 L 118/56 L Pulse Oximetry Oxygen Delivery 12/14/21 10:40 12/14/21 11:00 12/14/21 11:20 Temperature Pulse Rate 74 75 72 Respiratory Rate Blood Pressure 104/47 L 132/57 L 112/55 L Pulse Oximetry Oxygen Delivery 12/14/21 11:40 12/14/21 11:58 12/14/21 11:58 Temperature 36.6 C Pulse Rate 78 80 72 Respiratory Rate 20 Blood Pressure 109/48 L 100/38 L 122/57 L Pulse Oximetry Oxygen Delivery 12/14/21 12:38 12/14/21 08:45 12/14/21 08:45 Temperature 36.8 C Pulse Rate 76 67 76 Respiratory Rate 14 14 Blood Pressure 107/56 L Pulse Oximetry 96 96 Oxygen Delivery Room Air 12/14/21 12:00 12/14/21 14:00 12/14/21 16:00 Temperature 36.7 C Pulse Rate 72 71 71 Respiratory Rate 18 Blood Pressure 138/62 Pulse Oximetry 98 Oxygen Delivery 12/14/21 20:21 12/14/21
[2021-12-15] MEDS: MIDODRINE HCL 10 MG TABLET PO ×3 (08:21→21:52)
[2021-12-15] MEDS: GABAPENTIN 300 MG CAPSULE PO ×2 (08:21→16:34)
[2021-12-15] MEDS: ACIDOPHILUS/BULGARICUS CHEWABLE TABLET 1 TABLET PO ×2 (08:21→16:34)
[2021-12-15] MEDS: FIDAXOMICIN 200 MG TABLET PO ×2 (08:21→21:52)
[2021-12-15] MEDS: PANTOPRAZOLE SODIUM IV 40 MG VIAL IV PUSH ×2 (08:22→21:52)
[2021-12-15] MEDS: POTASSIUM CHLORIDE 20 MEQ PACKET (FOR LIQUID) PO (08:22)
[2021-12-15] MEDS: EUCERIN CREAM 120 GM JAR 1 APPLIC TOPICAL (08:23)
[2021-12-15] MEDS: POTASSIUM/PHOSPHORUS/SODIUM 1.5 GM PACKET 1 PACKET PO ×2 (08:32→16:33)
--- NOTE | 2021-12-15 11:29 | PM.IMPN ---
Progress Note: A&P Assessment and Plan (1) C. difficile colitis: Code(s): A04.72 - Enterocolitis due to Clostridium difficile, not specified as recurrent Status: Acute Assessment and Plan: -patient started on PO vancomycin (12/06) -GI following the patient - will [facility] fecal management system. -add cholestyramine (2) Pancolitis: Code(s): K51.00 - Ulcerative (chronic) pancolitis without complications Status: Acute Assessment and Plan: Appreciate GI and surgical evaluation. See plan above. Continue antibiotics. (3) Sepsis: Code(s): A41.9 - Sepsis, unspecified organism Status: Acute Assessment and Plan: Improved (4) End stage renal disease: Code(s): N18.6 - End stage renal disease Status: Acute Assessment and Plan: Patient with end-stage renal disease on hemodialysis -nephrology has been consulted -dialysis will be done per Nephrology (5) Hypoalbuminemia due to protein-calorie malnutrition: Code(s): E88.09 - Other disorders of plasma-protein metabolism, not elsewhere classified; E46 - Unspecified protein-calorie malnutrition Status: Acute Assessment and Plan: monitor (6) Electrolyte abnormality: Code(s): E87.8 - Other disorders of electrolyte and fluid balance, not elsewhere classified Status: Acute Assessment and Plan: Monitor electrolytes (7) Decubitus ulcer: Code(s): L89.90 - Pressure ulcer of unspecified site, unspecified stage Status: Acute Assessment and Plan: Wound Care to see (8) Diabetes type 2, controlled: Code(s): E11.9 - Type 2 diabetes mellitus without complications Status: Acute Assessment and Plan: Monitor blood sugars. Insulin as needed (9) Acute hypokalemia: Code(s): E87.6 - Hypokalemia Status: Acute Assessment and Plan: monitor Subjective Date/time seen: 12/15/21 11:29 No new complaints, now agreeable to go to rehab Exam Narrative: Patient is comfortable, NAD HEENT: eyes are clear and none icteric LUNGS:Normal respiratory effort ABD: distended Lower extremities: no edema SKIN: nonjaundiced Neuro: grossly intact. Objective Data Vital Signs Vital Signs: Vital Signs - 24 hr 12/14/21 11:40 12/14/21 11:58 12/14/21 11:58 Temperature 97.9 F Pulse Rate 78 80 72 Respiratory Rate 20 Blood Pressure 109/48 L 100/38 L 122/57 L Pulse Oximetry 12/14/21 12:38 12/14/21 12:00 12/14/21 14:00 Temperature 98.3 F 98.0 F Pulse Rate 76 72 71 Respiratory Rate 14 18 Blood Pressure 107/56 L 138/62 Pulse Oximetry 96 98 12/14/21 16:00 12/14/21 20:21 12/14/21 21:20 Temperature 97.5 F L Pulse Rate 71 74 72 Respiratory Rate 16 16 Blood Pressure 115/55 L Pulse Oximetry 97 12/14/21 20:00 12/15/21 00:00 12/14/21 20:33 Temperature Pulse Rate 67 72 74 Respiratory Rate 16 Blood Pressure Pulse Oximetry 12/15/21 04:00 12/15/21 06:00 12/15/21 07:31 Temperature 97.7 F Pulse Rate 77 74 72 Respiratory Rate 16 16 Blood Pressure 116/54 L Pulse Oximetry 93 Intake/Output Intake/Output: Intake & Output 12/12/21 12/13/21 12/14/21 12/15/21 23:59 23:59 23:59 23:59 Intake Total 1000 690 590 190 Output Total 5874 331 9084 200 Balance -200 540 -610 -10 Meds/Results Medications: Active Medications Generic Name Dose Route Start Last Admin Trade Name Freq PRN Reason Stop Dose Admin Acetaminophen 650 mg 12/09/21 09:00 12/10/21 00:46 Acetaminophen 325 Mg Tablet PO 650 mg Q6H PRN Administration Mild Pain (1-3) or Fever Hydrocodone Bitart/Acetaminophen 2 tab 12/07/21 04:06 12/14/21 13:21 Hydrocodone/Acetaminophen (*Crx) 5-325 Mg Tablet PO 2 tab Q4H PRN Administration Pain (Scale Score 4-6) Albuterol 2.5 mg 12/11/21 08:00 12/15/21 07:30 Albuterol Sulfate Neb 2.5 Mg/3 Ml Inh INHALATION 2.5 mg Q12HRT PUNEET Administration Al
[2021-12-15 11:44] LABS: Glucose Point of Care 97 mg/dl (65-105)
[2021-12-15] MEDS: CHOLESTYRAMINE LIGHT 4 GM POWD.PACK PO ×2 (11:53→18:35)
--- NOTE | 2021-12-15 12:17 | WPDGIPROGNO ---
Progress Note: A&P Assessment and Plan (1) C. difficile colitis: Code(s): A04.72 - Enterocolitis due to Clostridium difficile, not specified as recurrent Status: Acute Assessment and Plan: Patient with C difficile colitis, less diarrhea and better on oral vancomycin and dificid, also probiotics (2) End stage renal disease: Code(s): N18.6 - End stage renal disease Status: Acute Assessment and Plan: on dialysis nephrology on board (3) Pancolitis: Code(s): K51.00 - Ulcerative (chronic) pancolitis without complications Status: Acute Assessment and Plan: no pain and better (4) Acute on chronic anemia: Code(s): D64.9 - Anemia, unspecified Status: Acute Assessment and Plan: h/h probably multifactorial (5) Hypoalbuminemia due to protein-calorie malnutrition: Code(s): E88.09 - Other disorders of plasma-protein metabolism, not elsewhere classified; E46 - Unspecified protein-calorie malnutrition Status: Acute Subjective Date/time seen: 12/15/21 12:17 Interval history: he is in good spirits, no diarrhea today and feels better, denies abdominal pain Review of Systems Review of Systems: All systems reviewed & are unremarkable except as noted in HPI and below Exam Const: General: comfortable and no acute distress Orientation/consciousness: oriented to person, oriented to place and oriented to time HENMT: General nose exam: Normal nares present Eyes: General: appearance normal, both eyes and all related structures Neck: Neck: no JVD Resp: Auscultation: clear to auscultation bilaterally Cardio: Rate: regular rate Rhythm: regular rhythm GI: Inspection: non-distended GI Palp: Yes Soft to palpation Auscultation: normal bowel sounds Skin: General skin exam: normal color Neuro: Speech: normal speech Extrem: General: normal to inspection Psych: Mental Status: mental status grossly normal Objective Data Vital Signs Vital Signs: Vital Signs - 24 hr 12/14/21 12:38 12/14/21 14:00 12/14/21 16:00 Temperature 98.3 F 98.0 F Pulse Rate 76 71 71 Respiratory Rate 14 18 Blood Pressure 107/56 L 138/62 Pulse Oximetry 96 98 12/14/21 20:21 12/14/21 21:20 12/14/21 20:00 Temperature 97.5 F L Pulse Rate 74 72 67 Respiratory Rate 16 16 Blood Pressure 115/55 L Pulse Oximetry 97 12/15/21 00:00 12/14/21 20:33 12/15/21 04:00 Temperature Pulse Rate 72 74 77 Respiratory Rate 16 Blood Pressure Pulse Oximetry 12/15/21 06:00 12/15/21 07:31 Temperature 97.7 F Pulse Rate 74 72 Respiratory Rate 16 16 Blood Pressure 116/54 L Pulse Oximetry 93 Intake/Output Intake/Output: Intake & Output 12/12/21 12/13/21 12/14/21 12/15/21 23:59 23:59 23:59 23:59 Intake Total 1000 690 590 190 Output Total 0447 798 7508 200 Balance -200 540 -610 -10 Meds/Results Medications: Active Medications Generic Name Dose Route Start Last Admin Trade Name Freq PRN Reason Stop Dose Admin Acetaminophen 650 mg 12/09/21 09:00 12/10/21 00:46 Acetaminophen 325 Mg Tablet PO 650 mg Q6H PRN Administration Mild Pain (1-3) or Fever Hydrocodone Bitart/Acetaminophen 2 tab 12/07/21 04:06 12/14/21 13:21 Hydrocodone/Acetaminophen (*Crx) 5-325 Mg Tablet PO 2 tab Q4H PRN Administration Pain (Scale Score 4-6) Albuterol 2.5 mg 12/11/21 08:00 12/15/21 07:30 Albuterol Sulfate Neb 2.5 Mg/3 Ml Inh INHALATION 2.5 mg Q12HRT PUNEET Administration Alteplase, Recombinant 2 mg 12/11/21 15:14 12/14/21 16:30 Alteplase 2 Mg Vial (Cathflo) IV PUSH 2 mg ONCE PRN Administration Line Occlusion Alteplase, Recombinant 2 mg 12/11/21 15:53 12/14/21 16:35 Alteplase 2 Mg Vial (Cathflo) IV PUSH 2 mg ONCE PRN Administration Line Occlusion Aspirin 81 mg 12/07/21 09:00 12/07/21 09:02 Aspirin 81 Mg Enteric Tablet PO 81 mg QAM PUNEET Administration Atorvastatin Calciu
[2021-12-15 16:51] LABS: Glucose Point of Care 110 mg/dl (65-105)
[2021-12-15 22:06] LABS: Glucose Point of Care 98 mg/dl (65-105)
[2021-12-16] VITALS (19 sets, daily range): BP systolic 117–151; BP diastolic 45–64; PULSE 70–92; RESP 16–20; TEMP 36.5–37.2; O2SAT 95–99
[2021-12-16] MEDS: CENTRAL LINE FLUSH 10 ML IV PUSH ×3 (05:20→21:28)
[2021-12-16] MEDS: VANCOMYCIN ORAL 500 MG/10 ML SYRUP PO ×4 (05:20→21:33)
[2021-12-16 05:45] LABS: Immature Platelet Fraction Pct 2.9 % (0.9-11.2)
[2021-12-16 05:59] LABS: Albumin Level 1.9 g/dL (3.5-5.1); Anion Gap 3 mmol/L (8-16); Blood Urea Nitrogen 16 mg/dL (9-20); Calcium 7.7 mg/dL (8.4-10.2); Carbon Dioxide 29 mmol/L (22-30); Chloride 102 mmol/L (98-107); Estimated CRCL calculation 21 ml/min; Estimated Glomerular Filt Rate 26; Glucose 103 mg/dL (65-110); Magnesium 1.7 mg/dL (1.6-2.3); Phosphorus 2.1 mg/dL (2.5-4.5); Potassium 3.1 mmol/L (3.4-5.0); Sodium 134 mmol/L (137-145)
[2021-12-16 06:02] LABS: Red Blood Count 2.15 M/mm3 (4.6-6.20); White Blood Count 8.9 K/mm3 (4.5-10.0)
[2021-12-16 06:03] LABS: Hematocrit 22.3 % (42.0-52.0); Hemoglobin 6.8 g/dL (14.0-18.0); Mean Corpuscular HGB Conc 30.5 g/dl (32-36); Mean Corpuscular Hemoglobin 31.6 pg (26-34); Mean Corpuscular Volume 103.7 fl (80-100); Mean Platelet Volume 9.9 fl (7.4-10.4); Platelet Count Result 144 k/mm3 (150-375); Red Cell Distribution Width 19.6 % (11.5-14.5)
[2021-12-16] MEDS: CENTRAL LINE FLUSH 20 ML IV PUSH (07:48)
[2021-12-16] MEDS: ALBUTEROL SULFATE NEB 2.5 MG/3 ML INH INHALATION (08:04)
[2021-12-16] MEDS: FLUTICASONE/UMECLIDIN/VILANTER 100-62.5-25 MCG ELLIPTA 1 PUFF INHALATION (08:04)
[2021-12-16] MEDS: ACIDOPHILUS/BULGARICUS CHEWABLE TABLET 1 TABLET PO ×2 (08:06→16:27)
[2021-12-16] MEDS: GABAPENTIN 300 MG CAPSULE PO ×2 (08:07→16:27)
[2021-12-16] MEDS: FIDAXOMICIN 200 MG TABLET PO ×2 (08:07→21:28)
[2021-12-16] MEDS: POTASSIUM/PHOSPHORUS/SODIUM 1.5 GM PACKET 1 PACKET PO ×2 (08:08→13:44)
[2021-12-16] MEDS: EUCERIN CREAM 120 GM JAR 1 APPLIC TOPICAL (08:08)
[2021-12-16] MEDS: PANTOPRAZOLE SODIUM IV 40 MG VIAL IV PUSH ×2 (08:08→21:28)
[2021-12-16] MEDS: POTASSIUM CHLORIDE 20 MEQ PACKET (FOR LIQUID) PO (08:08)
[2021-12-16] MEDS: MIDODRINE HCL 10 MG TABLET PO ×2 (08:08→16:27)
[2021-12-16 08:16] LABS: Glucose Point of Care 101 mg/dl (65-105)
--- NOTE | 2021-12-16 09:32 | PCOTNOTE ---
Per RN, patient will be receiving blood, needs to keep triple lumen in place. Due to triple lumen, activity would be limited and patient not seen for OT this date. Will continue plan of care as appropriate.
[2021-12-16] MEDS: SODIUM CHLORIDE 0.9% IV 250 ML 30 ML IV CONT (10:22)
[2021-12-16] MEDS: CHOLESTYRAMINE LIGHT 4 GM POWD.PACK PO ×2 (10:26→17:58)
--- NOTE | 2021-12-16 11:32 | WPDGIPROGNO ---
Progress Note: A&P Assessment and Plan (1) C. difficile colitis: Code(s): A04.72 - Enterocolitis due to Clostridium difficile, not specified as recurrent Status: Acute Assessment and Plan: C difficile colitis improving clinically. On 2 antibiotics. Likely only needs 1. Would recommend a 10 day course of vancomycin. Watch for signs of recurrence over the next several weeks. Diet as tolerated. Disposition per primary care service. (2) Hematoma of neck: Code(s): S10.93XA - Contusion of unspecified part of neck, initial encounter Status: Acute Subjective Date/time seen: 12/16/21 11:32 Patient more comfortable today. Reports only 1 bowel movement a day. No longer with fecal containment tube. No bleeding reported. Review of Systems Review of Systems: Review of systems noncontributory. Exam Narrative: Physical exam reveals patient to be alert. Vital signs stable. HEENT exam is unremarkable. Patient is anicteric. left neck hematoma improving. Lungs are clear. Abdomen bowel sounds present soft nontender. Objective Data Vital Signs Vital Signs: Vital Signs - 24 hr 12/15/21 12:00 12/15/21 14:05 12/15/21 16:00 Temperature 99.3 F Pulse Rate 91 77 74 Respiratory Rate 14 Blood Pressure 114/50 L Pulse Oximetry 96 Oxygen Delivery 12/15/21 20:29 12/15/21 21:19 12/15/21 21:45 Temperature 98.4 F Pulse Rate 96 81 Respiratory Rate 16 18 Blood Pressure 126/59 L Pulse Oximetry 99 Oxygen Delivery Room Air 12/15/21 20:00 12/16/21 00:00 12/16/21 04:00 Temperature Pulse Rate 75 81 78 Respiratory Rate Blood Pressure Pulse Oximetry Oxygen Delivery 12/15/21 20:40 12/16/21 05:31 12/16/21 08:01 Temperature 98.0 F Pulse Rate 96 80 89 Respiratory Rate 16 18 16 Blood Pressure 117/51 L Pulse Oximetry 97 Oxygen Delivery 12/16/21 08:00 12/16/21 08:11 12/16/21 08:12 Temperature Pulse Rate 70 92 89 Respiratory Rate 16 Blood Pressure Pulse Oximetry 97 Oxygen Delivery Room Air 12/16/21 10:20 12/16/21 10:36 12/16/21 08:00 Temperature 98.2 F 97.9 F Pulse Rate 73 74 Respiratory Rate 20 18 Blood Pressure 135/47 L 140/46 L Pulse Oximetry 98 96 Oxygen Delivery Room Air Intake/Output Intake/Output: Intake & Output 12/13/21 12/14/21 12/15/21 12/16/21 23:59 23:59 23:59 23:59 Intake Total 690 590 565 120 Output Total 150 1200 775 Balance 540 -610 -210 120 Meds/Results Medications: Active Medications Generic Name Dose Route Start Last Admin Trade Name Osvaldoq PRN Reason Stop Dose Admin Acetaminophen 650 mg 12/09/21 09:00 12/10/21 00:46 Acetaminophen 325 Mg Tablet PO 650 mg Q6H PRN Administration Mild Pain (1-3) or Fever Hydrocodone Bitart/Acetaminophen 2 tab 12/07/21 04:06 12/14/21 13:21 Hydrocodone/Acetaminophen (*Crx) 5-325 Mg Tablet PO 2 tab Q4H PRN Administration Pain (Scale Score 4-6) Albuterol 2.5 mg 12/11/21 08:00 12/16/21 08:04 Albuterol Sulfate Neb 2.5 Mg/3 Ml Inh INHALATION 2.5 mg Q12HRT PUNEET Administration Alteplase, Recombinant 2 mg 12/11/21 15:14 12/14/21 16:30 Alteplase 2 Mg Vial (Cathflo) IV PUSH 2 mg ONCE PRN Administration Line Occlusion Alteplase, Recombinant 2 mg 12/11/21 15:53 12/14/21 16:35 Alteplase 2 Mg Vial (Cathflo) IV PUSH 2 mg ONCE PRN Administration Line Occlusion Aspirin 81 mg 12/07/21 09:00 12/07/21 09:02 Aspirin 81 Mg Enteric Tablet PO 81 mg QAM PUNEET Administration Atorvastatin Calcium 40 mg 12/07/21 21:00 Atorvastatin 40 Mg Tablet PO HS [facility] Cholestyramine Resin 4 gm 12/13/21 18:00 12/16/21 10:26 Cholestyramine Light 4 Gm Powd.Pack PO 4 gm BID@1000,1800 PUNEET Administration Dextrose 12.5 gm 12/07/21 04:11 Dextrose 50% 25 Gm/50 Ml Syringe IV PUSH PRN PRN Hypoglycemia Protocol Donepezil HCl 10 mg 12/07/21 09:00 12/07/21 09:
--- NOTE | 2021-12-16 11:54 | PM.DS ---
DS: Admitting Diagnosis Discharge Date December 16, 2021 Admitting Diagnosis sepsis on admission, C diff DS: Discharge Diagnosis Discharge Diagnosis (1) C. difficile colitis: Code(s): A04.72 - Enterocolitis due to Clostridium difficile, not specified as recurrent Status: Acute Assessment and Plan: improved (2) Pancolitis: Code(s): K51.00 - Ulcerative (chronic) pancolitis without complications Status: Acute Assessment and Plan: Appreciate GI and surgical evaluation. See plan above. Continue antibiotics. (3) Sepsis: Code(s): A41.9 - Sepsis, unspecified organism Status: Acute Assessment and Plan: Improved (4) End stage renal disease: Code(s): N18.6 - End stage renal disease Status: Acute Assessment and Plan: Patient with end-stage renal disease on hemodialysis -nephrology has been consulted -dialysis will be done per Nephrology (5) Hypoalbuminemia due to protein-calorie malnutrition: Code(s): E88.09 - Other disorders of plasma-protein metabolism, not elsewhere classified; E46 - Unspecified protein-calorie malnutrition Status: Acute Assessment and Plan: monitor (6) Electrolyte abnormality: Code(s): E87.8 - Other disorders of electrolyte and fluid balance, not elsewhere classified Status: Acute Assessment and Plan: Monitor electrolytes (7) Decubitus ulcer: Code(s): L89.90 - Pressure ulcer of unspecified site, unspecified stage Status: Acute Assessment and Plan: Wound Care to see (8) Diabetes type 2, controlled: Code(s): E11.9 - Type 2 diabetes mellitus without complications Status: Acute Assessment and Plan: Monitor blood sugars. Insulin as needed (9) Acute hypokalemia: Code(s): E87.6 - Hypokalemia Status: Acute Assessment and Plan: monitor DS: Summary Hospital Course Hospital Course: patient is a 81-year-old male who came in with sepsis and volume depletion from dehydration. This was felt related to C diff colitis. He was started on Dificid and also oral vancomycin. Since then he has done exceptionally well and his diarrhea has essentially resolved. He will need to complete these antibiotic courses otherwise he is doing okay can be discharged from the hospital. Also to note, the patient does have end-stage renal disease and chronic anemia he did require 1unit of blood transfusion while hemodialysis. Otherwise medically stable can be discharged. Time Spent with Patient Time attestation: Total time spent providing and/or coordinating discharge services: Exam Narrative: Patient is comfortable, NAD HEENT: eyes are clear and none icteric LUNGS:Normal respiratory effort ABD: distended Lower extremities: no edema SKIN: nonjaundiced Neuro: grossly intact. DS: Data Data Completed and Pending Labs on day of discharge: Labs from last 24 hours 12/16/21 12/16/21 12/16/21 08:12 07:47 05:06 WBC RBC Hgb Hct MCV MCH MCHC RDW Plt Count MPV % Immature Plt Fraction Sodium 134 L Potassium 3.1 L Chloride 102 Carbon Dioxide 29 Anion Gap 3 L BUN 16 Creatinine 2.40 H Estim Creat Clear Calc 21 Estimated GFR 26 L Glucose 103 POC Capillary Glucose 101 Calcium 7.7 L Phosphorus 2.1 L Magnesium 1.7 Albumin 1.9 L Blood Type A Positive Antibody Screen Negative Crossmatch See Detail 12/16/21 12/15/21 12/15/21 05:06 22:00 16:42 WBC 8.9 RBC 2.15 L Hgb 6.8 L* Hct 22.3 L MCV 103.7 H MCH 31.6 MCHC 30.5 L RDW 19.6 H Plt Count 144 L MPV 9.9 % Immature Plt Fraction 2.9 Sodium Potassium Chloride Carbon Dioxide Anion Gap BUN Creatinine Estim Creat Clear Calc Estimated GFR Glucose POC Capillary Glucose 98 110 H Calcium Phosphorus Magnesium Albumin
[2021-12-16 12:10] LABS: Glucose Point of Care 98 mg/dl (65-105)
[2021-12-16 12:22] LABS: EDCOVIDSCREEN Negative (Negative)
--- NOTE | 2021-12-16 12:49 | P.PNNP_ITS ---
Progress Note: A&P Assessment and Plan (1) ROEL (acute kidney injury): Code(s): N17.9 - Acute kidney failure, unspecified Status: Acute Assessment and Plan: * due to ATN from infection on last hospitalization (COVID and C. diff colitis) * active/recurrent C diff colitis may make it difficult to recover renal fun ction * it has been so long that he may have progressed to ESRD.... * plan HD on Thursday to resume outpatient schedule of Thu/Thu/Thursday (2) Stage 3b chronic kidney disease: Code(s): N18.32 - Chronic kidney disease, stage 3b Status: Chronic Assessment and Plan: * baseline creatinine usually runs ~ 1.9 - 2.5mg/dl * felt to be secondary to diabetes, hypertension, vascular disease, and age. (3) C. difficile colitis: Code(s): A04.72 - Enterocolitis due to Clostridium difficile, not specified as recurrent Status: Acute Assessment and Plan: * recurrent issue/problem * first diagnosed in October 2021 * may have been exacerbated by [facility]vaquin use at [facility] (being treated for possible pnuemonia) * however, he was already having diarrhea issues before this antibiotic use * currently on PO vancomycin and fidaxomicin * FMS is out and seems to be slowly recovering (4) Anemia: Code(s): D64.9 - Anemia, unspecified Status: Chronic Assessment and Plan: * due to ROEL, CKD, and acute illness * on high dose Epogen with HD * suspect may have some Epogen resistance due to infection/inflammation (5) Hypokalemia: Code(s): E87.6 - Hypokalemia Status: Acute Assessment and Plan: * supplement as tolerated * partly related to total body store depletion due to poor oral intake and GI loss * would not be opposed to diet liberalization if needed (6) Diabetes type 2, controlled: Code(s): E11.9 - Type 2 diabetes mellitus without complications Status: Acute Assessment and Plan: * follow accuchecks * glycemic control Not opposed to discharge from renal perspective - I will follow-up with patient at his outpatient dialysis center. Will continue to follow. Subjective Date/time seen: 12/16/21 12:49 Chart reviewed since last seen -- assuming care from Dr. Mitchell; appears to be feeling reasonably well at this time; no apparent distress noted; no further diarrhea to report; no other acute issues/events overnight or earlier this morning; noted plans for possible discharge today. Exam Narrative: General: chronically ill appearing male in NAD Heart: normal S1 and S2; no rub or gallop Lungs: clear to auscultation Abdomen: soft, less TTP, nondistended, positive bowel sounds Extremities: trace edema Skin: warm and dry Objective Data Vital Signs Vital Signs: Vital Signs Temp Pulse Resp BP Pulse Ox O2 Del Method 12/16/21 11:36 36.6 C 74 20 147/45 H 95 12/16/21 08:00 Room Air 12/16/21 10:36 36.6 C 74 18 140/46 L 96 12/16/21 10:20 36.8 C 73 20 135/47 L 98 12/16/21 08:12 89 97 Room Air 12/16/21 08:11 92 16 12/16/21 08:00 70 12/16/21 08:01 89 16 12/16/21 05:31 36.7 C 80 18 117/51 L 97 12/15/21 20:40 96 16 12/16/21 04:00 78 12/16/21 00:00
--- NOTE | 2021-12-16 12:49 | PM.PNNEP ---
Progress Note: A&P Assessment and Plan (1) ROEL (acute kidney injury): Code(s): N17.9 - Acute kidney failure, unspecified Status: Acute Assessment and Plan: due to ATN from infection on last hospitalization (COVID and C. diff colitis) active/recurrent C diff colitis may make it difficult to recover renal function it has been so long that he may have progressed to ESRD.... plan HD on Thursday to resume outpatient schedule of Thu/Thu/Thursday (2) Stage 3b chronic kidney disease: Code(s): N18.32 - Chronic kidney disease, stage 3b Status: Chronic Assessment and Plan: baseline creatinine usually runs ~ 1.9 - 2.5mg/dl felt to be secondary to diabetes, hypertension, vascular disease, and age. (3) C. difficile colitis: Code(s): A04.72 - Enterocolitis due to Clostridium difficile, not specified as recurrent Status: Acute Assessment and Plan: recurrent issue/problem first diagnosed in October 2021 may have been exacerbated by recent levaquin use at [facility] (being treated for possible pnuemonia) however, he was already having diarrhea issues before this antibiotic use currently on PO vancomycin and fidaxomicin FMS is out and seems to be slowly recovering (4) Anemia: Code(s): D64.9 - Anemia, unspecified Status: Chronic Assessment and Plan: due to ROEL, CKD, and acute illness on high dose Epogen with HD suspect may have some Epogen resistance due to infection/inflammation (5) Hypokalemia: Code(s): E87.6 - Hypokalemia Status: Acute Assessment and Plan: supplement as tolerated partly related to total body store depletion due to poor oral intake and GI loss would not be opposed to diet liberalization if needed (6) Diabetes type 2, controlled: Code(s): E11.9 - Type 2 diabetes mellitus without complications Status: Acute Assessment and Plan: follow accuchecks glycemic control Not opposed to discharge from renal perspective - I will follow-up with patient at his outpatient dialysis center. Will continue to follow. Subjective Date/time seen: 12/16/21 12:49 Chart reviewed since last seen -- assuming care from Dr. Mitchell; appears to be feeling reasonably well at this time; no apparent distress noted; no further diarrhea to report; no other acute issues/events overnight or earlier this morning; noted plans for possible discharge today. Exam Narrative: General: chronically ill appearing male in NAD Heart: normal S1 and S2; no rub or gallop Lungs: clear to auscultation Abdomen: soft, less TTP, nondistended, positive bowel sounds Extremities: trace edema Skin: warm and dry Objective Data Vital Signs Vital Signs: Vital Signs Temp Pulse Resp BP Pulse Ox O2 Del Method 12/16/21 11:36 36.6 C 74 20 147/45 H 95 12/16/21 08:00 Room Air 12/16/21 10:36 36.6 C 74 18 140/46 L 96 12/16/21 10:20 36.8 C 73 20 135/47 L 98 12/16/21 08:12 89 97 Room Air 12/16/21 08:11 92 16 12/16/21 08:00 70 12/16/21 08:01 89 16 12/16/21 05:31 36.7 C 80 18 117/51 L 97 12/15/21 20:40 96 16 12/16/21 04:00 78 12/16/21 00:00 81 12/15/21 20:00 75 12/15/21 21:45 Room Air 12/15/21 21:19 36.9 C 81 18 126/59 L 99 12/15/21 20:29 96 16 Intake/Output Intake/Output: Intake & Output 12/13/21 12/14/21 12/15/21 12/16/21 23:59 23:59 23:59 23:59 Intake Total 690 547 919 2667 Output Total 150 1200 775 Balance 540 610 -210 1100 Meds/Results Medications: Active Medications Generic Name Dose Route Start Last Admin Trade Name Amelia PRN Reason Stop Dose Admin Acetaminophen 650 mg 12/09/21 09:00 12/10/21 00:46 Acetaminophen 325 Mg Tablet PO 650 mg Q6H PRN Administration Mild Pain (1-3) or Fever Hydrocodone Bitart/Acetaminophen 2 tab 12/07/21 04:06 12/14/21 13:21
[2021-12-16 16:06] LABS: Hematocrit 25.7 % (42.0-52.0); Hemoglobin 8.3 g/dL (14.0-18.0)
[2021-12-16 16:56] LABS: Glucose Point of Care 93 mg/dl (65-105)
[2021-12-16] MEDS: ALBUTEROL SULFATE NEB 2.5 MG/0.5 ML INH (20:05)
[2021-12-16 23:15] LABS: Glucose Point of Care 117 mg/dl (65-105)
[2021-12-17] VITALS (8 sets, daily range): BP systolic 117; BP diastolic 52; PULSE 73–86; RESP 16–20; TEMP 37.2; O2SAT 95
[2021-12-17] MEDS: VANCOMYCIN ORAL 500 MG/10 ML SYRUP PO ×2 (04:31→09:51)
[2021-12-17 05:36] LABS: Hematocrit 25.6 % (42.0-52.0); Hemoglobin 8.1 g/dL (14.0-18.0); Mean Corpuscular HGB Conc 31.6 g/dl (32-36); Mean Corpuscular Hemoglobin 31.5 pg (26-34); Mean Corpuscular Volume 99.6 fl (80-100); Mean Platelet Volume 9.6 fl (7.4-10.4); Platelet Count Result 129 k/mm3 (150-375); Red Blood Count 2.57 M/mm3 (4.6-6.20); Red Cell Distribution Width 20.5 % (11.5-14.5); White Blood Count 9.1 K/mm3 (4.5-10.0)
[2021-12-17 05:47] LABS: Albumin Level 2.1 g/dL (3.5-5.1); Anion Gap 8 mmol/L (8-16); Blood Urea Nitrogen 20 mg/dL (9-20); Calcium 7.4 mg/dL (8.4-10.2); Carbon Dioxide 28 mmol/L (22-30); Chloride 99 mmol/L (98-107); Estimated CRCL calculation 18 ml/min; Estimated Glomerular Filt Rate 21; Glucose 94 mg/dL (65-110); Magnesium 1.6 mg/dL (1.6-2.3); Phosphorus 2.9 mg/dL (2.5-4.5); Potassium 3.4 mmol/L (3.4-5.0); Sodium 135 mmol/L (137-145)
[2021-12-17] MEDS: CENTRAL LINE FLUSH 10 ML IV PUSH (06:36)
[2021-12-17] MEDS: ALBUTEROL SULFATE NEB 2.5 MG/3 ML INH INHALATION (08:02)
[2021-12-17] MEDS: FLUTICASONE/UMECLIDIN/VILANTER 100-62.5-25 MCG ELLIPTA 1 PUFF INHALATION (08:02)
[2021-12-17 08:07] LABS: Glucose Point of Care 100 mg/dl (65-105)
[2021-12-17] MEDS: POTASSIUM CHLORIDE 20 MEQ PACKET (FOR LIQUID) PO (09:49)
[2021-12-17] MEDS: ACIDOPHILUS/BULGARICUS CHEWABLE TABLET 1 TABLET PO (09:49)
[2021-12-17] MEDS: GABAPENTIN 300 MG CAPSULE PO (09:49)
[2021-12-17] MEDS: CHOLESTYRAMINE LIGHT 4 GM POWD.PACK PO (09:49)
[2021-12-17] MEDS: FIDAXOMICIN 200 MG TABLET PO (09:49)
[2021-12-17] MEDS: PANTOPRAZOLE SODIUM IV 40 MG VIAL IV PUSH (09:50)
[2021-12-17] MEDS: EUCERIN CREAM 120 GM JAR 1 APPLIC TOPICAL (09:50)
[2021-12-17] MEDS: MIDODRINE HCL 10 MG TABLET PO ×2 (09:50→12:58)
[2021-12-17] MEDS: NEOMYCIN/POLYMYXIN/BACITRACIN OINTMENT PACKET 1 PACKET (09:51)
--- NOTE | 2021-12-17 10:19 | PM.DS ---
DS: Admitting Diagnosis Discharge Date December 17, 2021 Admitting Diagnosis C diff colitis DS: Discharge Diagnosis Discharge Diagnosis (1) C. difficile colitis: Code(s): A04.72 - Enterocolitis due to Clostridium difficile, not specified as recurrent Status: Acute Assessment and Plan: improved (2) Pancolitis: Code(s): K51.00 - Ulcerative (chronic) pancolitis without complications Status: Acute Assessment and Plan: Appreciate GI and surgical evaluation. See plan above. Continue antibiotics. (3) Sepsis: Code(s): A41.9 - Sepsis, unspecified organism Status: Acute Assessment and Plan: Improved (4) End stage renal disease: Code(s): N18.6 - End stage renal disease Status: Acute Assessment and Plan: Patient with end-stage renal disease on hemodialysis -nephrology has been consulted -dialysis will be done per Nephrology (5) Hypoalbuminemia due to protein-calorie malnutrition: Code(s): E88.09 - Other disorders of plasma-protein metabolism, not elsewhere classified; E46 - Unspecified protein-calorie malnutrition Status: Acute Assessment and Plan: monitor (6) Electrolyte abnormality: Code(s): E87.8 - Other disorders of electrolyte and fluid balance, not elsewhere classified Status: Acute Assessment and Plan: Monitor electrolytes (7) Decubitus ulcer: Code(s): L89.90 - Pressure ulcer of unspecified site, unspecified stage Status: Acute Assessment and Plan: Wound Care to see (8) Diabetes type 2, controlled: Code(s): E11.9 - Type 2 diabetes mellitus without complications Status: Acute Assessment and Plan: Monitor blood sugars. Insulin as needed (9) Acute hypokalemia: Code(s): E87.6 - Hypokalemia Status: Acute Assessment and Plan: monitor DS: Summary Hospital Course Hospital Course: patient is a 81-year-old male who came in with sepsis and volume depletion from dehydration.? This was felt related to C diff colitis.? He was started on Dificid and also oral vancomycin.? Since then he has done exceptionally well and his diarrhea has essentially resolved.? He will need to complete these antibiotic courses otherwise he is doing okay can be discharged from the hospital.? Also to note, the patient does have end-stage renal disease and chronic anemia he did require 1unit of blood transfusion while hemodialysis.? Otherwise medically stable can be discharged. Time Spent with Patient Time attestation: Total time spent providing and/or coordinating discharge services: Exam Narrative: Patient is comfortable, NAD HEENT: eyes are clear and none icteric LUNGS:Normal respiratory effort ABD: distended Lower extremities: no edema SKIN: nonjaundiced Neuro: grossly intact. DS: Data Data Completed and Pending Labs on day of discharge: Labs from last 24 hours 12/17/21 12/17/21 12/17/21 07:58 05:24 05:24 WBC 9.1 RBC 2.57 L Hgb 8.1 L Hct 25.6 L MCV 99.6 MCH 31.5 MCHC 31.6 L RDW 20.5 H Plt Count 129 L MPV 9.6 Sodium 135 L Potassium 3.4 Chloride 99 Carbon Dioxide 28 Anion Gap 8 BUN 20 Creatinine 2.90 H Estim Creat Clear Calc 18 Estimated GFR 21 L Glucose 94 POC Capillary Glucose 100 Calcium 7.4 L Phosphorus 2.9 Magnesium 1.6 Albumin 2.1 L SARS-CoV-2 IgG/IgM Ag?Rapid Blood Type Antibody Screen Crossmatch 12/16/21 12/16/21 12/16/21 21:35 16:51 15:54 WBC RBC Hgb 8.3 L Hct 25.7 L MCV MCH MCHC RDW Plt Count MPV Sodium Potassium Chloride Carbon Dioxide Anion Gap BUN Creatinine Estim Creat Clear Calc Estimated GFR Glucose POC Capillary Glucose 117 H 93 Calcium Phosphorus Magnesium Albumin SARS-CoV-2 IgG/IgM Ag?Rapid Blood Type Antibody Screen Cr
[2021-12-17 11:52] LABS: Glucose Point of Care 105 mg/dl (65-105)
== END 2021-12-17 15:05 | DRG 871 ==
LOC: ANHED 12-07 00:47 → ANHIMU 12-07 01:25 → ANHICU 12-07 11:15 → ANH2MED 12-09 14:02
PROVIDERS: Family Medicine; Internal Medicine; Internal Medicine Nephrology; Admitting Provider Internal Medicine; Emergency Provider Emergency Medicine; PCP Family Medicine; Visit Provider Chiropractor
DX: A41.9 Sepsis, unspecified organism (principal); L89.323 Pressure ulcer of left buttock, stage 3; N18.6 End stage renal disease; N17.0 Acute kidney failure with tubular necrosis; K51.00 Ulcerative (chronic) pancolitis without complications; A04.71 Enterocolitis due to Clostridium difficile, recurrent; I12.0 Hypertensive chronic kidney disease with stage 5 chronic kidney disease or end stage renal disease; L76.32 Postprocedural hematoma of skin and subcutaneous tissue following other procedure; E46 Unspecified protein-calorie malnutrition; E87.6 Hypokalemia; E86.1 Hypovolemia; E11.22 Type 2 diabetes mellitus with diabetic chronic kidney disease; D63.1 Anemia in chronic kidney disease; J44.9 Chronic obstructive pulmonary disease, unspecified; E11.42 Type 2 diabetes mellitus with diabetic polyneuropathy; E78.5 Hyperlipidemia, unspecified; I25.10 Atherosclerotic heart disease of native coronary artery without angina pectoris; R53.81 Other malaise; I95.89 Other hypotension; F03.90 Unspecified dementia, unspecified severity, without behavioral disturbance, psychotic disturbance, mood disturbance, and anxiety; K21.9 Gastro-esophageal reflux disease without esophagitis; E11.51 Type 2 diabetes mellitus with diabetic peripheral angiopathy without gangrene; I73.9 Peripheral vascular disease, unspecified; L89.319 Pressure ulcer of right buttock, unspecified stage; E86.0 Dehydration; Z87.891 Personal history of nicotine dependence; Z20.822 Contact with and (suspected) exposure to COVID-19; Z95.1 Presence of aortocoronary bypass graft; Z86.718 Personal history of other venous thrombosis and embolism; Z79.84 Long term (current) use of oral hypoglycemic drugs; Z68.26 Body mass index [BMI] 26.0-26.9, adult; Z79.82 Long term (current) use of aspirin; Z86.16 Personal history of COVID-19; Z99.2 Dependence on renal dialysis; Y84.8 Other medical procedures as the cause of abnormal reaction of the patient, or of later complication, without mention of misadventure at the time of the procedure
CPT/HCPCS: 36415; 36430; 70490; 71045; 74176; 80048; 80053; 80069; 82274; 82948; 83605; 83735; 84100; 84132; 84145; 85014; 85018; 85025; 85027; 85046; 85049; 85055; 85380; 85384; 85610; 85730; 86706; 86850; 86900; 86901; 86920; 87040; 87045; 87177; 87209; 87269; 87272; 87340; 87426; 87427; 87493; 89055; 93971; 94640; 96361; 96374; 97110; 97162; 97166; 97530; 99285; A9270; C1751; C9113; C9803; G0257; J1170; J1644; J2997; J3475; J3480; J7030; J7040; J7050; P9012; P9016; P9017; P9047; Q5105

== ENCOUNTER 2021-12-26 21:17 | Emergency (ER) | payer MEDICARE, MEDICAID, SELFPAY ==
[2021-12-26] VITALS (16 sets, daily range): BP systolic 143–158; BP diastolic 53–67; PULSE 74–83; RESP 13–19; TEMP 37; O2SAT 99–100
--- NOTE | ~2021-12-26 | XR_ITS ---
XR chest 2V 12/26/2021 21:49 Indication: Shortness of breath Procedure: 2 view chest Comparison: Comparison to multiple prior studies sequentially, with oldest reviewed study dated 10/15 Findings: persistent left lower lobe airspace disease, compatible with pneumonia. Small left pleural effusion, possibly loculated. Status post median sternotomy for CABG. Large bore right IJ central dunia ous catheter tips in the SVC.. Impression: 1: Left lower lobe airspace disease, consistent with pneumonia. 2: Small left pleural effusion. Reviewed, dictated and finalized at location A. Impression: 1: Left lower lobe airspace disease, consistent with pneumonia. 2: Small left pleural effusion.
[2021-12-26 22:08] LABS: Basophils Percent Auto 0.5 % (0.2-1.2); Eosinophils Absolute Auto 0.4 K/mm3 (0-0.3); Hematocrit 29.7 % (42.0-52.0); Hemoglobin 9.3 g/dL (14.0-18.0); Immature Granulocyte Absolute 0.05 K/mm3 (0.00-0.031); Immature Granulocyte Percent A 0.8 % (0-0.5); Lymphocytes Absolute Auto 1.81 K/mm3 (0.9-3.2); Lymphocytes Percent Auto 30.1 % (18.3-44.2); Mean Corpuscular HGB Conc 31.3 g/dl (32-36); Mean Corpuscular Hemoglobin 31.7 pg (26-34); Mean Corpuscular Volume 101.4 fl (80-100); Mean Platelet Volume 9.1 fl (7.4-10.4); Monocytes Absolute Auto 0.7 K/mm3 (0.1-0.6); Neutrophils Percent Auto 49.6 % (45.5-73.1); Platelet Count Result 228 k/mm3 (150-375); Red Blood Count 2.93 M/mm3 (4.6-6.20); Red Cell Distribution Width 18.7 % (11.5-14.5)
[2021-12-26 22:23] LABS: Alanine Aminotransferase 11 U/L (6-50); Albumin Level 3.1 g/dL (3.5-5.1); Alkaline Phosphatase 78 U/L (38-126); Anion Gap 7 mmol/L (8-16); Aspartate Amino Transferase 20 U/L (17-59); Bilirubin,Total 0.7 mg/dL (0.2-1.3); Blood Urea Nitrogen 8 mg/dL (9-20); Calcium 8.3 mg/dL (8.4-10.2); Carbon Dioxide 30 mmol/L (22-30); Chloride 97 mmol/L (98-107); Estimated CRCL calculation 23 ml/min; Estimated Glomerular Filt Rate 29; Glucose 94 mg/dL (65-110); Potassium 2.8 mmol/L (3.4-5.0); Sodium 134 mmol/L (137-145)
--- NOTE | 2021-12-26 22:41 | ED.GENADULT ---
HPI - General Adult General Chief complaint: Unspecified Stated complaint: send PCP r/o pneumonia Time Seen by Provider: 12/26/21 21:49 Source: patient and old records reviewed Mode of arrival: EMS Limitations: no limitations History of Present Illness HPI narrative: Patient is a 81 y/o male who presents to the ED via EMS with concern for possible pneumonia. Patient is a resident of [facility]. He was sent here tonight due to concern for pneumonia seen on outpatient chest x-ray. Patient is a dialysis patient receives dialysis Thursday. He sees Dr. Gregg. Patient denies any symptoms currently. Denies fever, cough, chest pain, difficulty breathing, abdominal pain, nausea, vomiting, congestion, rhinorrhea, sore throat, headache, weakness. Patient is wheelchair bound at baseline. Per records, he has had several lengthy admissions here recently, most recently for pancolitis thought to be due to CDIFF. Patient has been on oral Vanc for this. Reports occasional diarrhea the last few days, no blood. No abdominal pain. Related Data Home Medications Medication Instructions Recorded Confirmed carvedilol 12.5 mg tablet 12.5 mg PO HS 10/11/19 12/07/21 donepezil 10 mg tablet 10 mg PO DAILY 10/11/19 12/07/21 ezetimibe 10 mg tablet 5 mg PO DAILY 10/11/19 12/07/21 famotidine 20 mg tablet 40 mg PO BID 10/11/19 12/07/21 furosemide 20 mg tablet 20 mg PO DAILY 10/11/19 12/07/21 gabapentin 300 mg capsule 300 mg PO BID 10/11/19 12/07/21 pioglitazone 30 mg tablet 30 mg PO DAILY 10/11/19 12/07/21 albuterol sulfate 2.5 mg/3 mL 2.5 mg inhalation BID PRN sob 07/28/21 12/07/21 (0.083 %) solution for nebulization aspirin 81 mg tablet 81 mg PO HS 07/28/21 12/07/21 budesonide 160 mcg-glycopyr 9 2 inh inhalation BID 07/28/21 12/07/21 mcg-formot 4.8 mcg/actuation HFA inhaler (Breztri Aerosphere) ferrous sulfate 325 mg (65 mg 1 tablet PO DAILY 09/15/21 12/07/21 iron) tablet Lactobacillus acidophilus 10 mg PO BID 12/07/21 12/07/21 albuterol sulfate 2.5 mg/3 mL 2.5 mg inhalation BID 12/07/21 12/07/21 (0.083 %) solution for nebulization atorvastatin 40 mg tablet 40 mg PO HS 12/07/21 12/07/21 carvedilol 12.5 mg tablet 12.5 mg PO QTUTHSASU 12/07/21 12/07/21 collagen (bovine) 12 bandage 1 applic topical DAILY 12/07/21 12/07/21 hydrocodone 5 mg-acetaminophen 325 2 tablet PO Q4H PRN Pain (Scale 12/07/21 12/07/21 mg tablet Score 4-6) levofloxacin 750 mg tablet 750 mg PO DAILY 12/07/21 12/07/21 linagliptin 5 mg tablet (Tradjenta) 5 mg PO QAM 12/07/21 12/07/21 vitamin B complex-vitamin C-folic 1 tablet PO DAILY 12/07/21 12/07/21 acid 0.8 mg tablet (Cheyenne-Beatriz) Allergies Allergy/AdvReac Type Severity Reaction Status Date / Time morphine Allergy Intermediate Itching Verified 12/07/21 02:43 Penicillins Allergy Mild Unknown Verified 12/07/21 02:43 Review of Systems Review of Systems: CONSTITUTIONAL: Denies fever, chills, or sweats. ENT: Denies rhinorrhea, congestion, sore throat. CARDIOVASCULAR: Denies chest pain. RESPIRATORY: Denies cough or dyspnea. GASTROINTESTINAL: Reports occasional diarrhea. Denies abdominal pain, nausea, vomiting. NEUROLOGIC: Denies headache, numbness, or weakness. All systems reviewed & are unremarkable except as noted in HPI and below PMFSH Past Medical History Medical History COPD (chronic obstructive pulmonary disease) Coronary artery disease Dementia Diabetes type 2, controlled Diabetic peripheral neuropathy Dysphagia With history absent gag reflex with failed modified barium swallow October 2018. Patient refused G-tube at the time. GERD (gastroesophageal reflux disease) History of left heart catheterization Hyperlipidemia Hypertension Hyponatremia 132-136 Normal echocardiogram October 2018 and October 2021 Orthostatic hypotension Respiratory failure requiring intubation Due to COVID pneumonia renal failure and C diff colitis extub
[2021-12-26] MEDS: POTASSIUM CHLORIDE 20 MEQ TABLET 40 MEQ PO (23:09)
[2021-12-26 23:16] LABS: Magnesium 1.6 mg/dL (1.6-2.3); Phosphorus 1.4 mg/dL (2.5-4.5)
[2021-12-27] VITALS (13 sets, daily range): BP systolic 132–146; BP diastolic 54–59; PULSE 75–82; RESP 11–20; O2SAT 100
[2021-12-27] MEDS: POTASSIUM/PHOSPHORUS/SODIUM 1.5 GM PACKET 1 PACKET PO (01:35)
--- NOTE | 2021-12-27 01:36 | PC.NURSE ---
Blood cultures not needed per ERP
--- NOTE | 2021-12-31 16:51 | ED.GENADULT ---
HPI - General Adult General Chief complaint: Unspecified Stated complaint: send PCP r/o pneumonia Time Seen by Provider: 12/26/21 21:49 Source: patient and old records reviewed Mode of arrival: EMS Limitations: no limitations Related Data Home Medications Medication Instructions Recorded Confirmed carvedilol 12.5 mg tablet 12.5 mg PO HS 10/11/19 12/07/21 donepezil 10 mg tablet 10 mg PO DAILY 10/11/19 12/07/21 ezetimibe 10 mg tablet 5 mg PO DAILY 10/11/19 12/07/21 famotidine 20 mg tablet 40 mg PO BID 10/11/19 12/07/21 furosemide 20 mg tablet 20 mg PO DAILY 10/11/19 12/07/21 gabapentin 300 mg capsule 300 mg PO BID 10/11/19 12/07/21 pioglitazone 30 mg tablet 30 mg PO DAILY 10/11/19 12/07/21 albuterol sulfate 2.5 mg/3 mL 2.5 mg inhalation BID PRN sob 07/28/21 12/07/21 (0.083 %) solution for nebulization aspirin 81 mg tablet 81 mg PO HS 07/28/21 12/07/21 budesonide 160 mcg-glycopyr 9 2 inh inhalation BID 07/28/21 12/07/21 mcg-formot 4.8 mcg/actuation HFA inhaler (Breztri Aerosphere) ferrous sulfate 325 mg (65 mg 1 tablet PO DAILY 09/15/21 12/07/21 iron) tablet Lactobacillus acidophilus 10 mg PO BID 12/07/21 12/07/21 albuterol sulfate 2.5 mg/3 mL 2.5 mg inhalation BID 12/07/21 12/07/21 (0.083 %) solution for nebulization atorvastatin 40 mg tablet 40 mg PO HS 12/07/21 12/07/21 carvedilol 12.5 mg tablet 12.5 mg PO QTUTHSASU 12/07/21 12/07/21 collagen (bovine) 12 bandage 1 applic topical DAILY 12/07/21 12/07/21 hydrocodone 5 mg-acetaminophen 325 2 tablet PO Q4H PRN Pain (Scale 12/07/21 12/07/21 mg tablet Score 4-6) levofloxacin 750 mg tablet 750 mg PO DAILY 12/07/21 12/07/21 linagliptin 5 mg tablet (Tradjenta) 5 mg PO QAM 12/07/21 12/07/21 vitamin B complex-vitamin C-folic 1 tablet PO DAILY 12/07/21 12/07/21 acid 0.8 mg tablet (Cheyenne-Beatriz) Allergies Allergy/AdvReac Type Severity Reaction Status Date / Time morphine Allergy Intermediate Itching Verified 12/07/21 02:43 Penicillins Allergy Mild Unknown Verified 12/07/21 02:43 [facility] Past Medical History Medical History COPD (chronic obstructive pulmonary disease) Coronary artery disease Dementia Diabetes type 2, controlled Diabetic peripheral neuropathy Dysphagia With history absent gag reflex with failed modified barium swallow October 2018. Patient refused G-tube at the time. GERD (gastroesophageal reflux disease) History of left heart catheterization Hyperlipidemia Hypertension Hyponatremia 132-136 Normal echocardiogram October 2018 and October 2021 Orthostatic hypotension Respiratory failure requiring intubation Due to COVID pneumonia renal failure and C diff colitis extubated 10/11/2021 Right leg DVT Stage 3b chronic kidney disease Secondary to diabetes, hypertension, vascular disease and age Surgical History Surgical History H/O inguinal hernia repair Hx of CABG 3 vessel, 2000 S/P dialysis catheter insertion (10/09/21) Family History Family History Mother Breast cancer COPD (chronic obstructive pulmonary disease) Hypertension Sibling Malignant neoplasm of prostate COPD (chronic obstructive pulmonary disease) Sister Hypertension Acute myocardial infarction Brother Lung cancer Sister Social History Social History Social History: He has a greater than 100 pack per year smoking history. He smoked 3 packs of cigarettes per day from the time he was 13 until is CABG in 2002. He is down to smoking a few cigarettes cigarettes a week. He has live with the same woman for approximately 30 years but states that he is not . He has 2 daughters 1 of which he is estranged from. Code status: Full code Surrogate decision maker: Sona Escobedo (significant other) Smoking packs per da
== END 2021-12-27 05:07 ==
PROVIDERS: Physician Assistant; Emergency Provider Emergency Medicine; PCP Family Medicine
DX: J18.9 Pneumonia, unspecified organism (principal); E87.6 Hypokalemia; E83.39 Other disorders of phosphorus metabolism; E11.22 Type 2 diabetes mellitus with diabetic chronic kidney disease; I12.0 Hypertensive chronic kidney disease with stage 5 chronic kidney disease or end stage renal disease; N18.6 End stage renal disease; J44.9 Chronic obstructive pulmonary disease, unspecified; I25.10 Atherosclerotic heart disease of native coronary artery without angina pectoris; E11.42 Type 2 diabetes mellitus with diabetic polyneuropathy; F03.90 Unspecified dementia, unspecified severity, without behavioral disturbance, psychotic disturbance, mood disturbance, and anxiety; K21.9 Gastro-esophageal reflux disease without esophagitis; E78.5 Hyperlipidemia, unspecified; I99.9 Unspecified disorder of circulatory system; Z99.2 Dependence on renal dialysis; Z95.1 Presence of aortocoronary bypass graft; Z87.891 Personal history of nicotine dependence; Z99.3 Dependence on wheelchair; Z79.82 Long term (current) use of aspirin
CPT/HCPCS: 36415; 71046; 80053; 83735; 84100; 85025; 96365; 96367; 99284; A9270; J0456; J0696

== ENCOUNTER 2022-01-09 21:58 | Inpatient (IN) | payer MEDICARE, MEDICAID, SELFPAY ==
--- NOTE | ~2022-01-09 | XR_ITS ---
XR chest 1V portable 01/09/2022 22:22 Indication: Shortness of breath Procedure: AP portable chest Comparison: Comparison to multiple prior studies sequentially, with oldest reviewed study dated 10/20. Findings: Large bore right IJ central venous catheter in the SVC. Status post median sternotomy for C ABG. Cardiomegaly. Bilateral interstitial infiltrates. Possible small left effusion. There is atheros clerosis of the aorta. No pneumothorax. Impression: 1: Diffuse bilateral interstitial infiltrates which may represent edema or pneumonia. 2: Cardiomegaly. Reviewed, dictated and finalized at location A. Impression: 1: Diffuse bilateral interstitial infiltrates which may represent edema or pneu monia. 2: Cardiomegaly.
--- NOTE | ~2022-01-09 | XR_ITS ---
EXAMINATION: [id number] DATE: 01/13/2022 15:13 INDICATION: Left pleural effusion status post thoracentesis. TECHNIQUE: Frontal and lateral views of the chest were obtained. COMPARISON: Chest 2 views 01/12/2022 FINDINGS: There is volume loss of left hemithorax. There are airspace opacities in left perihilar reg ion and at left lung base. No pleural effusion or pneumothorax. The heart size is normal. Median ster notomy wires and mediastinal surgical clips are seen, likely from prior coronary artery bypass grafti ng. A right internal jugular central venous catheter is seen with tip at the superior cavoatrial junc tion. IMPRESSION: 1. Airspace opacities in left perihilar region and at left lung base, consistent with atelectasis marlen trina pneumonia. Reviewed, dictated and finalized at location A. IMPRESSION: 1. Airspace opacities in left perihilar region and at left lung base, consisten t with atelectasis versus pneumonia.
--- NOTE | ~2022-01-09 | XR_ITS ---
EXAMINATION: XR chest 1V portable DATE: 01/14/2022 05:32 INDICATION: Left pleural effusion. TECHNIQUE: A single frontal view of the chest was obtained. COMPARISON: Chest 2 views 01/13/2022 FINDINGS: There is volume loss of left hemithorax. There are airspace opacities in left perihilar reg ion and at left lung base. No pleural effusion or pneumothorax. The heart size is normal. Median ster notomy wires and mediastinal surgical clips are seen, likely from prior coronary artery bypass grafti ng. There is a prominent left paracardial fat pad. A right internal jugular central venous catheter i s seen with tip at the superior cavoatrial junction. IMPRESSION: 1. Stable airspace opacities in left perihilar region and at left lung base, consistent with atelecta sis versus pneumonia. Reviewed, dictated and finalized at location A. IMPRESSION: 1. Stable airspace opacities in left perihilar region and at left lung base, co nsistent with atelectasis versus pneumonia.
--- NOTE | ~2022-01-09 | XR_ITS ---
XR chest 2V 01/12/2022 08:46 Indication: Pleural effusion follow-up Procedure: 2 view chest Comparison: 01/11/2022 Findings: There is complete opacification of the left hemithorax with mediastinal shift to the left, consistent with volume loss. There are median sternotomy wires. Large bore central venous catheter ti ps in the SVC. Right lung clear. Impression: 1: Complete opacification of the left thorax which may represent a combination of atelectasis and/or effusion. Reviewed, dictated and finalized at location A. Impression: 1: Complete opacification of the left thorax which may represent a combination of atelectasis and/or effusion.
--- NOTE | ~2022-01-09 | CT_ITS ---
EXAMINATION: CT diagnostic chest wo con DATE: 01/14/2022 09:23 INDICATION: Shortness of breath, pneumonia TECHNIQUE: Computed tomography (CT) of the chest was performed without intravenous contrast. The dose -length product (DLP) was 315.26 mGy-cm. Automated exposure control and iterative reconstruction tech KloudCatch were employed. COMPARISON: 10/22/2021 FINDINGS: A large bore right internal jugular catheter ends with its tip in the proximal right atrium . There are small nodular opacities in the left upper lobe. Airspace opacities are present in the lef t lower lobe. There are small pleural effusions, left greater than right. Cardiomegaly is noted. No p athologically enlarged thoracic lymph nodes are identified. There are changes of coronary artery bypa ss grafting. There is no pneumothorax. There is severe thoracic spondylosis. IMPRESSION: 1. Small nodular opacities of the left upper lobe, likely infectious or inflammatory and airspace opa cities of the left lower lobe, consistent with atelectasis and/or pneumonia. Reviewed, dictated and finalized at location A. IMPRESSION: 1. Small nodular opacities of the left upper lobe, likely infectious or inflamm atory and airspace opacities of the left lower lobe, consistent with atelectasi s and/or pneumonia.
--- NOTE | ~2022-01-09 | XR_ITS ---
EXAMINATION: XR chest 1V portable DATE: 01/13/2022 08:15 INDICATION: Left lung collapse. TECHNIQUE: A single frontal view of the chest was obtained. COMPARISON: Chest 2 views 01/12/2022, CT abdomen and pelvis 12/06/2021 FINDINGS: There is near complete opacification of left hemithorax. No right-sided pleural effusion. N o pneumothorax. The heart size is normal. Median sternotomy wires and mediastinal surgical clips are seen, likely from prior coronary artery bypass grafting. There is a right internal jugular central ve nous catheter with tip at superior cavoatrial junction. IMPRESSION: 1. Near complete opacification of left hemithorax with slight improvement, likely a combination of la rge pleural effusion and atelectasis versus pneumonia. Reviewed, dictated and finalized at location A. IMPRESSION: 1. Near complete opacification of left hemithorax with slight improvement, like ly a combination of large pleural effusion and atelectasis versus pneumonia.
--- NOTE | ~2022-01-09 | US_ITS ---
EXAMINATION: US thoracentesis DATE: 01/13/2022 15:37 INDICATION: pleural effusion TECHNIQUE: The procedure and its risks, benefits, and alternatives were discussed with the patient. P otential risks discussed included bleeding, infection, and pneumothorax. The patient understood the r isks and agreed to proceed. The skin was prepped and draped in sterile fashion. 1% lidocaine was used for local anesthesia. Under ultrasound guidance, a 5 Fr catheter with trochar was advanced into the left pleural effusion. Fluid was aspirated. The catheter was removed, and a dressing was applied. The re were no immediate complications. FINDINGS: Ultrasound images demonstrate a left pleural effusion and the catheter within the fluid. IMPRESSION: 1. Successful ultrasound-guided thoracentesis yielding 600 mL of ora-colored fluid. Reviewed, dictated and finalized at location E.
--- NOTE | ~2022-01-09 | XR_ITS ---
XR chest 2V 01/11/2022 10:52 Indication: Pneumonia Procedure: AP and lateral views of the chest Comparison: Comparison to multiple prior studies sequentially, with oldest reviewed study dated 06/2021. Findings: Right IJ central venous catheter tip in the SVC. Status post median sternotomy for CABG. Th ere is near complete opacification of the left hemithorax with underlying compressive atelectasis. Ri ght lung is clear. No acute osseous abnormality. Impression: 1: Near-complete opacification of the left hemithorax consistent with large left effusion with underl alexsander compressive atelectasis. Reviewed, dictated and finalized at location A. Impression: 1: Near-complete opacification of the left hemithorax consistent with large lef t effusion with underlying compressive atelectasis.
[2022-01-09 22:01] VITALS: BP 153/69; PULSE 97; RESP 16; TEMP 37.1; O2SAT 97
[2022-01-09 22:20] VITALS: PULSE 92; RESP 26
[2022-01-09] MEDS: ALBUTEROL SULFATE NEB 2.5 MG/3 ML INH 5 MG INHALATION (22:20)
--- NOTE | 2022-01-09 22:22 | ED.GENADULT ---
HPI - General Adult General Chief complaint: Shortness of Breath/Dyspnea Stated complaint: SOB. HX COPD History of Present Illness HPI narrative: 81-year-old male with history of end-stage renal disease on dialysis Wednesdays and Fridays, COPD, dementia, coronary artery disease, type 2 diabetes presenting the emergency department for evaluation of worsening shortness of breath. Patient states that he was having increased shortness of breath today at the halfway. EMS was called for evaluation. In route patient was treated with an albuterol nebulizer and states he does feel improved at this time. Patient denies any complaints and states he is feeling back at his baseline. Patient did have a recent hospitalization for hypokalemia and was thought to been placed on potassium pills. Unsure if patient is still taking potassium supplements. Related Data Home Medications Medication Instructions Recorded Confirmed donepezil 10 mg tablet 10 mg PO DAILY 10/11/19 01/10/22 ezetimibe 10 mg tablet 5 mg PO DAILY 10/11/19 01/10/22 famotidine 20 mg tablet 20 mg PO BID 10/11/19 01/10/22 furosemide 20 mg tablet 20 mg PO DAILY 10/11/19 01/10/22 gabapentin 300 mg capsule 300 mg PO BID 10/11/19 01/10/22 pioglitazone 30 mg tablet 30 mg PO DAILY 10/11/19 01/10/22 albuterol sulfate 2.5 mg/3 mL 2.5 mg inhalation BID PRN sob 07/28/21 01/10/22 (0.083 %) solution for nebulization aspirin 81 mg tablet 81 mg PO HS 07/28/21 01/10/22 budesonide 160 mcg-glycopyr 9 2 inh inhalation BID 07/28/21 01/10/22 mcg-formot 4.8 mcg/actuation HFA inhaler (Breztri Aerosphere) ferrous sulfate 325 mg (65 mg 1 tablet PO DAILY 09/15/21 01/10/22 iron) tablet Lactobacillus acidophilus 10 mg PO BID 12/07/21 01/10/22 albuterol sulfate 2.5 mg/3 mL 2.5 mg inhalation Q2H 12/07/21 01/10/22 (0.083 %) solution for nebulization atorvastatin 40 mg tablet 40 mg PO HS 12/07/21 01/10/22 carvedilol 12.5 mg tablet 12.5 mg PO QTUTHSASU 12/07/21 01/10/22 collagen (bovine) 12 bandage 1 applic topical DAILY 12/07/21 01/10/22 vitamin B complex-vitamin C-folic 1 tablet PO DAILY 12/07/21 01/10/22 acid 0.8 mg tablet (Cheyenne-Beatriz) bisacodyl 10 mg rectal suppository 10 mg RECTAL DAILY PRN Constipation 01/10/22 01/10/22 linagliptin 5 mg tablet 5 mg PO QAM 01/10/22 01/10/22 magnesium citrate 296 ml PO DAILY PRN Constipation 01/10/22 01/10/22 magnesium hydroxide 400 mg/5 mL 400 mg PO DAILY PRN Constipation 01/10/22 01/10/22 oral suspension (Milk of Magnesia) oxycodone 5 mg tablet 5 mg PO Q8H PRN Pain 01/10/22 01/10/22 potassium chloride 20 mEq 20 meq PO BID 01/10/22 01/10/22 tablet,extended release sodium phosphates 19 gram-7 118 ml RECTAL ONCE 01/10/22 01/10/22 gram/118 mL enema (Fleet Enema) Allergies Allergy/AdvReac Type Severity Reaction Status Date / Time morphine Allergy Intermediate Itching Verified 01/09/22 22:04 Penicillins Allergy Mild Unknown Verified 01/09/22 22:04 Review of Systems Review of Systems: CONSTITUTIONAL: Denies fever, chills, or sweats. EYES: Denies visual changes, redness, or discharge. ENT: Denies rhinorrhea, congestion, sore throat, or otalgia. CARDIOVASCULAR: Denies chest pain, palpitations, or edema. RESPIRATORY: Shortness of breath GASTROINTESTINAL: Denies abdominal pain, nausea, vomiting, or diarrhea. GENITOURINARY: Denies dysuria or hematuria. SKIN: Denies rash or itching. MUSCULOSKELETAL: Denies back pain, joint pain, or myalgia. NEUROLOGIC: Denies headache, numbness, or weakness. [facility] Past Medical History Medical History COPD (chronic obstructive pulmonary disease) Coronary artery disease Dementia Diabetes type 2, controlled Diabetic peripheral neuropathy Dysphagia With history absent gag reflex with failed modified barium swallow October 2018. Patient refused G-tube at the time. GERD (gastroesophageal reflux disease) History of left heart catheterization Hyperlipidemia H
[2022-01-09 22:31] VITALS: PULSE 91; RESP 25
[2022-01-09 22:43] LABS: Hematocrit 28.3 % (42.0-52.0); Hemoglobin 8.6 g/dL (14.0-18.0); Mean Corpuscular HGB Conc 30.4 g/dl (32-36); Mean Corpuscular Hemoglobin 32.2 pg (26-34); Mean Platelet Volume 9.5 fl (7.4-10.4); Platelet Count Result 203 k/mm3 (150-375); Red Blood Count 2.67 M/mm3 (4.6-6.20); Red Cell Distribution Width 18.5 % (11.5-14.5); White Blood Count 6.5 K/mm3 (4.5-10.0)
[2022-01-09 22:50] VITALS: O2SAT 97
[2022-01-09 23:02] LABS: NT Pro B Type Natriuretic Pept 14100 pg/mL (5-100)
[2022-01-09 23:10] LABS: Alanine Aminotransferase 14 U/L (6-50); Albumin Level 2.9 g/dL (3.5-5.1); Alkaline Phosphatase 72 U/L (38-126); Anion Gap 8 mmol/L (8-16); Aspartate Amino Transferase 24 U/L (17-59); Bilirubin,Total 0.5 mg/dL (0.2-1.3); Blood Urea Nitrogen 23 mg/dL (9-20); Calcium 8.7 mg/dL (8.4-10.2); Carbon Dioxide 28 mmol/L (22-30); Chloride 103 mmol/L (98-107); Estimated CRCL calculation 17 ml/min; Estimated Glomerular Filt Rate 20; Glucose 143 mg/dL (65-110); Potassium 6.5 mmol/L (3.4-5.0); Sodium 139 mmol/L (137-145)
--- NOTE | 2022-01-09 23:13 | PC.NURSE ---
Assumed care of pt at this time. Pt resting on stretcher, eyes closed, in no obvious distress.
[2022-01-09 23:14] VITALS: BP 125/49; PULSE 89; RESP 22; O2SAT 96
[2022-01-09 23:15] VITALS: O2SAT 96
[2022-01-09 23:21] LABS: Band Neutrophils Percent 1 % (0-6); Basophils Absolute Manual 0.06 K/mm3 (0.0-0.1); Basophils Percent Manual 1 % (0-1); Eosinophils Absolute Manual 0.39 K/mm3 (0.02-0.5); Eosinophils Percent Manual 6 % (0-4); Lymphocytes Absolute Manual 1.04 K/mm3 (1.1-4.5); Metamyelocytes Percent 3 %; Monocytes Absolute Manual 0.19 K/mm3 (0.1-0.90); Monocytes Percent Manual 3 % (3-9); Myelocytes Percent 1 %; Neutrophils Absolute Manual 4.55 K/mm3 (1.3-6.7); Neutrophils Percent Manual 69 % (46-73); Total Cells Counted 100
[2022-01-09 23:22] LABS: Anisocytosis 2+ (NORMAL); Hypochromasia 1+ (NORMAL); Macrocytosis 2+ (NORMAL); Platelet Clumps Present; Platelet Estimate Adequate (Adequate); Poikilocytosis 1+ (NORMAL); Schistocytes 1+ (NORMAL); Spherocytes 2+ (NORMAL)
[2022-01-09 23:23] LABS: Atypical Lymphocytes Present; Smudge Cells FEW
[2022-01-09 23:23] LABS: Influenza A QL RT-PCR Negative (Negative); Influenza B QL RT-PCR Negative (Negative); SARS-CoV-2 RNA PCR Negative
--- NOTE | 2022-01-09 23:59 | PM.IMHP ---
H&P: HPI History of Present Illness Date/Time: 01/09/22 23:59 Chief Complaint: SHORTNESS OF BREATH Narrative: This is a 81-year-old male sn[facility] resident with past medical history significant for end-stage renal disease on hemodialysis Thursday, type 2 diabetes mellitus, dyslipidemia, dementia. patient is brought to the emergency room due to shortness of breath most of the history has been obtained from medical records and discussion with emergency room physician. Patient complains of shortness of breath, cough, denies any fevers rigors or chills, no nausea, no vomiting, no abdominal pain. patient was at [facility] for C difficile colitis in the half of December seems to have resolved. Preliminary workup was significant for chemistry panel showed a potassium was 6.5 a chest x-ray was significant for: Impression: 1: Diffuse bilateral interstitial infiltrates which may represent edema or pneumonia. 2: Cardiomegaly. In emergency room patient received various treatments for his hyperkalemia and has been admitted to IMU for further evaluation management and treatment. Review of Systems Review of Systems: Shortness of breath, cough. history taking is somehow limited due to patient's dementia ROS unobtainable: Yes unobtainable due to medical condition ( dementia) [facility] Past Medical History Medical History COPD (chronic obstructive pulmonary disease) Coronary artery disease Dementia Diabetes type 2, controlled Diabetic peripheral neuropathy Dysphagia With history absent gag reflex with failed modified barium swallow October 2018. Patient refused G-tube at the time. GERD (gastroesophageal reflux disease) History of left heart catheterization Hyperlipidemia Hypertension Hyponatremia 132-136 Normal echocardiogram October 2018 and October 2021 Orthostatic hypotension Respiratory failure requiring intubation Due to COVID pneumonia renal failure and C diff colitis extubated 10/11/2021 Right leg DVT Stage 3b chronic kidney disease Secondary to diabetes, hypertension, vascular disease and age Surgical History Surgical History H/O inguinal hernia repair Hx of CABG 3 vessel, 2000 S/P dialysis catheter insertion (10/09/21) Family History Family History Mother Breast cancer COPD (chronic obstructive pulmonary disease) Hypertension Sibling Malignant neoplasm of prostate COPD (chronic obstructive pulmonary disease) Sister Hypertension Acute myocardial infarction Brother Lung cancer Sister Social History Social History Social History: He has a greater than 100 pack per year smoking history. He smoked 3 packs of cigarettes per day from the time he was 13 until is CABG in 2002. He is down to smoking a few cigarettes cigarettes a week. He has live with the same woman for approximately 30 years but states that he is not . He has 2 daughters 1 of which he is estranged from. Code status: Full code Surrogate decision maker: Sona Escobedo (significant other) Smoking packs per day: 3 Smoking cigarettes per day: 60.0 Years smoked: 68 Smoking pack-years: 204.00 Smoking status: Current every day smoker Tobacco type: cigarettes Second hand tobacco smoke exposure: No Alcohol intake: never Alcohol use details: DRANK EVERYDAY QUIT- 1971 Substance use: never Other substance usage details: Quit drinking in 1971 Additional living arrangements comments: He is . 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 Gender identity (if verbalized by the patient): Male Spiritual care concerns: No Meds Home Medications and Allergies Home Medicatio
[2022-01-10] VITALS (28 sets, daily range): BP systolic 99–155; BP diastolic 3–65; PULSE 66–91; RESP 18–26; TEMP 36–36.6; O2SAT 93–100; BMI 25.2
--- NOTE | 2022-01-10 | ECG_ITS ---
Measurements Intervals [place] Rate: 88 P: 80 [place]: 235 QRS: -19 QRSD: 105 T: 48 QT: 377 QTc: 457 Interpretive Statements SINUS RHYTHM WITH FIRST DEGREE AV BLOCK POOR R-WAVE PROGRESSION COMPARED TO ECG 10/06/2021 22:48:48 FIRST DEGREE AV BLOCK NOW PRESENT PROLONGED QT INTERVAL NO LONGER PRESENT Electronically Signed On 01-10-2022 13:41:01 CDT by Lenny Grant M.D.
[2022-01-10] MEDS: DEXTROSE 50% 25 GM/50 ML SYRINGE IV PUSH (00:18)
[2022-01-10] MEDS: INSULIN HUMAN REGULAR (*BKC) 100 UNITS/ML IV PUSH (00:20)
[2022-01-10] MEDS: SODIUM ZIRCONIUM CYCLOSILICATE 10 GM POWD.PACK PO ×2 (00:42→05:02)
--- NOTE | 2022-01-10 01:42 | ADMGEN ---
This patient, Miky Fuentes, was admitted to IMU Room 204-01 on 01/10/22 at 0115. Patient/family oriented to hospital policies and general routines including ID bracelet, bed and alarms, visiting hours, pain management, procedures, bathroom and other care routines, personal items, smoking policy, room service/diet, and visiting hours. Information on how to activate the Rapid Response Team has been discussed. Patient/Family are encouraged to report perceived risks to care and to ask questions if they do not understand what they are told or what they should do.
[2022-01-10 02:57] LABS: Immature Platelet Fraction Pct 2.9 % (0.9-11.2); Mean Corpuscular HGB Conc 29.6 g/dl (32-36); Platelet Count Result 219 k/mm3 (150-375); Red Cell Distribution Width 18.6 % (11.5-14.5); White Blood Count 6.4 K/mm3 (4.5-10.0)
[2022-01-10 03:30] LABS: Albumin Level 2.6 g/dL (3.5-5.1); Anion Gap 9 mmol/L (8-16); Blood Urea Nitrogen 23 mg/dL (9-20); Calcium 8.8 mg/dL (8.4-10.2); Carbon Dioxide 26 mmol/L (22-30); Chloride 105 mmol/L (98-107); Estimated CRCL calculation 17 ml/min; Estimated Glomerular Filt Rate 20; Glucose 91 mg/dL (65-110); Sodium 140 mmol/L (137-145)
[2022-01-10 03:35] LABS: Anisocytosis 2+ (NORMAL); Band Neutrophils Percent 1 % (0-6); Eosinophils Absolute Manual 0.19 K/mm3 (0.02-0.5); Eosinophils Percent Manual 3 % (0-4); Lymphocytes Absolute Manual 1.79 K/mm3 (1.1-4.5); Macrocytosis 2+ (NORMAL); Metamyelocytes Percent 4 %; Microcytosis 1+ (NORMAL); Monocytes Absolute Manual 0.44 K/mm3 (0.1-0.90); Monocytes Percent Manual 7 % (3-9); Neutrophils Absolute Manual 3.71 K/mm3 (1.3-6.7); Neutrophils Percent Manual 57 % (46-73); Platelet Clumps Present; Platelet Estimate Adequate (Adequate); Poikilocytosis 1+ (NORMAL); Total Cells Counted 100
[2022-01-10 03:37] LABS: Acanthocytes 1+ (NORMAL); Hypersegmented Neutrophils Present; Hypochromasia 2+ (NORMAL); Schistocytes 1+ (NORMAL); Spherocytes 1+ (NORMAL)
[2022-01-10 03:38] LABS: Burr Cells 1+ (NORMAL); Crenated RBC 1+ (NORMAL); Smudge Cells FEW
[2022-01-10 04:13] LABS: Hepatitis B Surface Antigen Negative (Negative)
[2022-01-10 04:18] LABS: Hepatitis B Surface Anti Res Negative
[2022-01-10] MEDS: CALCIUM GLUCONATE 1,000 MG/10 ML VIAL 1000 MG IV PUSH (05:02)
[2022-01-10 06:55] LABS: Potassium 5.7 mmol/L (3.4-5.0)
[2022-01-10] MEDS: DONEPEZIL HCL 10 MG TABLET PO (08:25)
[2022-01-10] MEDS: FAMOTIDINE 20 MG TABLET PO ×2 (08:25→21:50)
[2022-01-10] MEDS: GABAPENTIN 300 MG CAPSULE PO ×2 (08:25→21:50)
[2022-01-10] MEDS: FERROUS SULFATE 324 MG TABLET PO (08:25)
[2022-01-10] MEDS: FUROSEMIDE 20 MG TABLET PO (08:25)
[2022-01-10] MEDS: PIOGLITAZONE HCL 30 MG TABLET PO (08:25)
[2022-01-10] MEDS: ACIDOPHILUS/BULGARICUS CHEWABLE TABLET 1 TABLET PO ×2 (08:25→21:56)
[2022-01-10] MEDS: OPTI-GEN TAB 1 TABLET PO (08:25)
[2022-01-10 08:29] LABS: Glucose Point of Care 128 mg/dl (65-105)
[2022-01-10] MEDS: ALBUTEROL SULFATE NEB 2.5 MG/3 ML INH INHALATION ×2 (08:51→20:49)
[2022-01-10] MEDS: FLUTICASONE/UMECLIDIN/VILANTER 100-62.5-25 MCG ELLIPTA 1 PUFF INHALATION (08:52)
[2022-01-10 11:39] LABS: Glucose Point of Care 158 mg/dl (65-105)
--- NOTE | 2022-01-10 12:16 | PM.CNNEP ---
Assessment and Plan Assessment and plan (1) End stage renal disease: Code(s): N18.6 - End stage renal disease Status: Chronic Assessment and Plan: HD today continue M/W/F schedule while hospitalized follow electrolytes, volume status, and clearance (2) Acute hypoxemic respiratory failure: Code(s): J96.01 - Acute respiratory failure with hypoxia Status: Acute Assessment and Plan: multifactorial: pneumonia mild volume overload underlying COPD fluid removal with dialysis antibiotics nebulizer treatments supplemental oxygen PRN (3) Hyperkalemia: Code(s): E87.5 - Hyperkalemia Status: Acute Assessment and Plan: as noted by admission labs interestingly, previously had issues with hypokalemia (from poor oral intake and diarrhea) holding K+ supplements s/p medical management dialysis should fully correct today low K+ diet (4) Healthcare-associated pneumonia: Code(s): J18.9 - Pneumonia, unspecified organism Status: Acute Assessment and Plan: suspected based on recent hospitalizations and admission imaging on IV antibiotics follow culture data (5) Anemia: Code(s): D64.9 - Anemia, unspecified Status: Chronic Assessment and Plan: due to ESRD and acute illness Epogen with HD follow trend of H/H (6) Type 2 diabetes mellitus with hyperglycemia, without long-term current use of insulin: Code(s): E11.65 - Type 2 diabetes mellitus with hyperglycemia Status: Acute Assessment and Plan: follow accuchecks on oral hypoglycemics and SSI glycemic control Will continue to follow. History of Present Illness Reason for Consult Consult date: 01/10/22 Reason for consult: end stage renal disease Chief Complaint Chief complaint: Hyperkalemia History of Present Illness Narrative: The patient is a 81-year-old male with extensive past medical history who presented to [facility] Emergency room from his nursing facility with complaints of shortness of breath. Most of the information I have is from review of the electronic record and discussion with ther ER physician late yesterday eveing/earlier this morning. Apparently the patient has been having issues with shortness of breath at this nursing facility although it is unclear how long this has been going on. EMS was called due to the persistance of these symptoms and was subsequently transferred to the ER. He received a bebulizer treatment while in route to the ER which symptomatically made him feel better by the time of his arrival to the ER. Workup and evaluation emergency room demonstrated the patient to be hemodynamically stable with improvement in his shortness of breath.. Routine blood test demonstrated labs consistent with his end stage renal disease although he had significant hyperkalemia with a potassium on 6.5 He did recieve another beathing treatment in the ER which further improved his shortness of breath. His chest xray was significant for diffuse bilateral infliltrates whci may represent edema or pneumonia along with cardiomegaly.. After appropriate cultures were obtained, he was started on antibiotic therapy for treatment of his presumed pneumonia as well as medical therapy to treat his hyperkalemia with subsequent admission to the hospital for further therapy. Renal consultation was requested due to his end stage renal disease. Pipe was initiated on dialysis on his hospitalization in late October of 2021 after he suffered an acute insult (due to ATN) on top of his baseline kidney disease resulting in necessity of renal replacement therapy/dialysis. As his renal function was good enough that he had not required dialysis in the past, it was hoped that with improvement in his overall clinical situation, his renal function might improve and he may be able to come off dialysis. Unfortunately, he has remained dialysis depende
--- NOTE | 2022-01-10 12:16 | P.CONNP_ITS ---
Assessment and Plan Assessment and plan (1) End stage renal disease: Code(s): N18.6 - End stage renal disease Status: Chronic Assessment and Plan: * HD today * continue M/W/F schedule while hospitalized * follow electrolytes, volume status, and clearance (2) Acute hypoxemic respiratory failure: Code(s): J96.01 - Acute respiratory failure with hypoxia Status: Acute Assessment and Plan: * multifactorial: * pneumonia * mild volume overload * underlying COPD * fluid removal with dialysis * antibiotics * nebulizer treatments * supplemental oxygen PRN (3) Hyperkalemia: Code(s): E87.5 - Hyperkalemia Status: Acute Assessment and Plan: * as noted by admission labs * interestingly, previously had issues with hypokalemia (from poor oral intake and diarrhea) * holding K+ supplements * s/p medical management * dialysis should fully correct today * low K+ diet (4) Healthcare-associated pneumonia: Code(s): J18.9 - Pneumonia, unspecified organism Status: Acute Assessment and Plan: * suspected based on recent hospitalizations and admission imaging * on IV antibiotics * follow culture data (5) Anemia: Code(s): D64.9 - Anemia, unspecified Status: Chronic Assessment and Plan: * due to ESRD and acute illness * Epogen with HD * follow trend of H/H (6) Type 2 diabetes mellitus with hyperglycemia, without long-term current use of insulin: Code(s): E11.65 - Type 2 diabetes mellitus with hyperglycemia Status: Acute Assessment and Plan: * follow accuchecks * on oral hypoglycemics and SSI * glycemic control Will continue to follow. History of Present Illness Reason for Consult Consult date: 01/10/22 Reason for consult: end stage renal disease Chief Complaint Chief complaint: Hyperkalemia History of Present Illness Narrative: The patient is a 81-year-old male with extensive past medical history who presented to [facility] Emergency room from his nursing facility with complaints of shortness of breath. Most of the information I have is from review of the electronic record and discussion with ther ER physician late yesterday eveing/earlier this morning. Apparently the patient has been having issues with shortness of breath at this nursing facility although it is unclear how long this has been going on. EMS was called due to the persistance of these symptoms and was subsequently transferred to the ER. He received a bebulizer treatment while in route to the ER which symptomatically made him feel better by the time of his arrival to the ER. Workup and evaluation emergency room demonstrated the patient to be hemodynamically stable with improvement in his shortness of breath.. Routine blood test demonstrated labs consistent with his end stage renal disease although he had significant hyperkalemia with a potassium on 6.5 He did recieve another beathing treatment in the ER which further improved his shortness of breath. His chest xray was significant for diffuse bilateral infliltrates whci may represent edema or pneumonia along with cardiomegaly.. After appropriate cultures were obtained, he was started on antibiotic therapy for treatment of his presumed pneumonia as well as medical therapy to treat his hyperkalemia with subsequent admission to the hospital for further therapy. Renal consultation was requested due to his end stage amy
--- NOTE | 2022-01-10 12:18 | PM.IMPN ---
Progress Note: A&P Assessment and Plan (1) Acute hyperkalemia: Code(s): E87.5 - Hyperkalemia Status: Acute Assessment and Plan: patient received various treatments in emergency room repeat potassium level showed slight improvement will continue to trend and treat as needed continuous telemetry patient is scheduled for hemodialysis in a.m. (2) Healthcare-associated pneumonia: Code(s): J18.9 - Pneumonia, unspecified organism Status: Acute Assessment and Plan: patient with recent hospitalization in December started on vancomycin aztreonam and Zithromax cultures in progress patient with allergy to penicillins (3) End stage renal disease: Code(s): N18.6 - End stage renal disease Status: Chronic Assessment and Plan: nephrology has been consulted resume hemodialysis (4) COPD (chronic obstructive pulmonary disease): Code(s): J44.9 - Chronic obstructive pulmonary disease, unspecified Status: Acute Assessment and Plan: will continue with home meds (5) Acute hypoxemic respiratory failure: Code(s): J96.01 - Acute respiratory failure with hypoxia Status: Acute Assessment and Plan: likely secondary to pneumonia continue to monitor (6) Type 2 diabetes mellitus with hyperglycemia, without long-term current use of insulin: Code(s): E11.65 - Type 2 diabetes mellitus with hyperglycemia Status: Acute Assessment and Plan: insulin sliding scale as needed Accu-Cheks AC and HS continue pioglitazone holding linagliptin holding Zetia Subjective Date/time seen: 01/10/22 12:18 Patient was seen during the morning rounds today. Patient has mild shortness of breath. No chest pain. No abdominal pain, nausea, no vomiting. Mood stable. Review of Systems Review of Systems: ROS unobtainable: Yes unobtainable due to medical condition ( dementia) Exam Narrative: patient is laying in a stretcher Const: General: cooperative, comfortable, no acute distress, well developed, alert, awake, ill appearing chronically and average body habitus Nutritional Appearance: average body habitus Orientation/consciousness: oriented to person, oriented to place and patient oriented x3 HENMT: Head: normal to inspection, normocephalic and atraumatic Ears: hearing grossly normal bilaterally Face/Nose/Sinus: normal facial exam Face and sinus: normal facial exam Eyes: General: appearance normal, both eyes and all related structures Pupils: Equal, round and reactive pupils present EOM: EOMs intact bilaterally Neck: Neck: full ROM, no lymphadenopathy and no JVD Thyroid: thyroid normal Lymphatic: no lymphadenopathy noted Resp: Effort & Inspection: normal respiratory effort and able to speak in complete sentences Auscultation: wheezes and other ( coarse breath sounds) Cardio: Jugular venous distension: no JVD Rate: regular rate Rhythm: regular rhythm Heart sounds: S1 normal heart sound present and S2 normal heart sound present : General: Yes deferred Skin: Rashes: no rashes Wounds: no wounds Neuro: General: oriented to person, oriented to place, patient oriented x3, CN's II-XI intact bilaterally and Unable to assess gait Cranial nerves: Yes CN's II-XII intact bilaterally and Yes Equal, round and reactive pupils present Cognition (Neuro): normal cognition Speech: normal speech Gait exam (Neuro): Unable to assess gait Motor exam (neuro): 5/5 motor strength present throughout Extrem: General: normal to inspection, full ROM, no joint enlargement and no pedal edema Objective Data Vital Signs Vital Signs: Vital Signs - 24 hr 01/09/22 22:01 01/09/22 22:20 01/09/22 22:31 Temperature 37.1 C Pulse Rate 97 92 91 Respiratory Rate 16 26 H 25 H Blood Pressure 153/69 H Pulse Oximetry 97 Oxygen Delivery Room Air Oxygen Flow Rate 01/09/22 22:50 01/09/22 23:14 01/09/22 23:15 Temperature Pulse Rate 8
[2022-01-10] MEDS: carvediloL 12.5 MG TABLET PO ×2 (12:28→21:51)
--- NOTE | 2022-01-10 16:37 | PC.NURSE ---
Pt to dialysis via bed. Report called to MAYRA Lane @ [id number]. Pt will go to room 304-1 after dialysis treatment. Chart, medications and belongings given to MAYRA
--- NOTE | 2022-01-10 16:37 | PC.NURSE ---
Transferred received from IMU; taken to dialysis room. Report from Chacha @ 2304.
[2022-01-10 18:50] LABS: Glucose Point of Care 100 mg/dl (65-105)
[2022-01-10 20:21] LABS: Glucose Point of Care 96 mg/dl (65-105)
[2022-01-10 21:38] LABS: Vancomycin Random 10.3 ug/mL (10-20)
[2022-01-10] MEDS: ASPIRIN 81 MG ENTERIC TABLET PO (21:53)
[2022-01-10] MEDS: ATORVASTATIN 40 MG TABLET PO (21:55)
[2022-01-11] VITALS (10 sets, daily range): BP systolic 98–117; BP diastolic 40–55; PULSE 68–84; RESP 16–20; TEMP 36.4–37.2; O2SAT 93–98
[2022-01-11] MEDS: ALBUTEROL SULFATE NEB 2.5 MG/3 ML INH INHALATION ×6 (04:57→20:30)
--- NOTE | 2022-01-11 04:57 | PCRCNOTE ---
Patient refused all of his treatments during my shift. Patient states he does not need them.
[2022-01-11 06:35] LABS: Anion Gap 7 mmol/L (8-16); Blood Urea Nitrogen 9 mg/dL (9-20); Calcium 8.2 mg/dL (8.4-10.2); Carbon Dioxide 30 mmol/L (22-30); Chloride 98 mmol/L (98-107); Estimated CRCL calculation 28 ml/min; Estimated Glomerular Filt Rate 37; Glucose 99 mg/dL (65-110); Potassium 4.3 mmol/L (3.4-5.0); Sodium 135 mmol/L (137-145)
[2022-01-11 08:09] LABS: Glucose Point of Care 117 mg/dl (65-105)
[2022-01-11] MEDS: FERROUS SULFATE 324 MG TABLET PO (08:30)
[2022-01-11] MEDS: FUROSEMIDE 20 MG TABLET PO (08:31)
[2022-01-11] MEDS: FAMOTIDINE 20 MG TABLET PO ×2 (08:31→17:09)
[2022-01-11] MEDS: PIOGLITAZONE HCL 30 MG TABLET PO (08:31)
[2022-01-11] MEDS: GABAPENTIN 300 MG CAPSULE PO ×2 (08:31→17:09)
[2022-01-11] MEDS: OPTI-GEN TAB 1 TABLET PO (08:31)
[2022-01-11] MEDS: ACIDOPHILUS/BULGARICUS CHEWABLE TABLET 1 TABLET PO ×2 (08:31→17:09)
[2022-01-11] MEDS: DONEPEZIL HCL 10 MG TABLET PO (08:31)
[2022-01-11] MEDS: carvediloL 12.5 MG TABLET PO ×2 (08:32→20:13)
[2022-01-11] MEDS: FLUTICASONE/UMECLIDIN/VILANTER 100-62.5-25 MCG ELLIPTA 1 PUFF INHALATION (08:54)
--- NOTE | 2022-01-11 08:57 | PCRCNOTE ---
Pt refused all respiratory treatments this morning, informed nurse of refusal.
[2022-01-11 11:15] LABS: Glucose Point of Care 203 mg/dl (65-105)
--- NOTE | 2022-01-11 11:18 | PM.IMPN ---
Progress Note: A&P Assessment and Plan (1) Acute hyperkalemia: Code(s): E87.5 - Hyperkalemia Status: Acute Assessment and Plan: patient received various treatments in emergency room repeat potassium level showed slight improvement will continue to trend and treat as needed continuous telemetry patient is scheduled for hemodialysis in a.m. (2) Healthcare-associated pneumonia: Code(s): J18.9 - Pneumonia, unspecified organism Status: Acute Assessment and Plan: patient with recent hospitalization in December started on vancomycin aztreonam and Zithromax cultures in progress patient with allergy to penicillins (3) End stage renal disease: Code(s): N18.6 - End stage renal disease Status: Chronic Assessment and Plan: nephrology has been consulted resume hemodialysis (4) COPD (chronic obstructive pulmonary disease): Code(s): J44.9 - Chronic obstructive pulmonary disease, unspecified Status: Acute Assessment and Plan: will continue with home meds (5) Acute hypoxemic respiratory failure: Code(s): J96.01 - Acute respiratory failure with hypoxia Status: Acute Assessment and Plan: likely secondary to pneumonia continue to monitor (6) Type 2 diabetes mellitus with hyperglycemia, without long-term current use of insulin: Code(s): E11.65 - Type 2 diabetes mellitus with hyperglycemia Status: Acute Assessment and Plan: insulin sliding scale as needed Accu-Cheks AC and HS continue pioglitazone holding linagliptin holding Zetia Subjective Date/time seen: 01/11/22 11:18 Patient was seen during the morning rounds today. Patient has mild shortness of breath. No chest pain. No abdominal pain, nausea, no vomiting. Mood stable. Review of Systems Review of Systems: ROS unobtainable: Yes unobtainable due to medical condition ( dementia) Exam Narrative: patient is laying in a stretcher Const: General: cooperative, comfortable, no acute distress, well developed, alert, awake, ill appearing chronically and average body habitus Nutritional Appearance: average body habitus Orientation/consciousness: oriented to person, oriented to place and patient oriented x3 HENMT: Head: normal to inspection, normocephalic and atraumatic Ears: hearing grossly normal bilaterally Face/Nose/Sinus: normal facial exam Face and sinus: normal facial exam Eyes: General: appearance normal, both eyes and all related structures Pupils: Equal, round and reactive pupils present EOM: EOMs intact bilaterally Neck: Neck: full ROM, no lymphadenopathy and no JVD Thyroid: thyroid normal Lymphatic: no lymphadenopathy noted Resp: Effort & Inspection: normal respiratory effort and able to speak in complete sentences Auscultation: wheezes and other ( coarse breath sounds) Cardio: Jugular venous distension: no JVD Rate: regular rate Rhythm: regular rhythm Heart sounds: S1 normal heart sound present and S2 normal heart sound present : General: Yes deferred Skin: Rashes: no rashes Wounds: no wounds Neuro: General: oriented to person, oriented to place, patient oriented x3, CN's II-XI intact bilaterally and Unable to assess gait Cranial nerves: Yes CN's II-XII intact bilaterally and Yes Equal, round and reactive pupils present Cognition (Neuro): normal cognition Speech: normal speech Gait exam (Neuro): Unable to assess gait Motor exam (neuro): 5/5 motor strength present throughout Extrem: General: normal to inspection, full ROM, no joint enlargement and no pedal edema Objective Data Vital Signs Vital Signs: Vital Signs - 24 hr 01/10/22 11:45 01/10/22 12:28 01/10/22 16:30 Temperature 36.2 C L 36.6 C Pulse Rate 74 84 68 Respiratory Rate 22 H 18 Blood Pressure 155/51 H 146/65 H Pulse Oximetry 100 95 Oxygen Delivery 01/10/22 16:45 01/10/22 17:00 01/10/22 17:20 Temperature Pulse Rate 66 67 71 Resp
--- NOTE | 2022-01-11 11:31 | PM.PNNEP ---
Progress Note: A&P Assessment and Plan (1) End stage renal disease: Code(s): N18.6 - End stage renal disease Status: Chronic Assessment and Plan: HD yesterday continue // schedule while hospitalized follow electrolytes, volume status, and clearance (2) Acute hypoxemic respiratory failure: Code(s): J96.01 - Acute respiratory failure with hypoxia Status: Acute Assessment and Plan: resolved/resolving multifactorial: pneumonia mild volume overload underlying COPD fluid removal with dialysis antibiotics nebulizer treatments supplemental oxygen PRN (3) Hyperkalemia: Code(s): E87.5 - Hyperkalemia Status: Acute Assessment and Plan: resolved as noted by admission labs interestingly, previously had issues with hypokalemia (from poor oral intake and diarrhea) holding K+ supplements s/p medical management low K+/renal diet (4) Healthcare-associated pneumonia: Code(s): J18.9 - Pneumonia, unspecified organism Status: Acute Assessment and Plan: suspected based on recent hospitalizations and admission imaging on IV antibiotics follow culture data (5) Anemia: Code(s): D64.9 - Anemia, unspecified Status: Chronic Assessment and Plan: due to ESRD and acute illness Epogen with HD follow trend of H/H (6) Type 2 diabetes mellitus with hyperglycemia, without long-term current use of insulin: Code(s): E11.65 - Type 2 diabetes mellitus with hyperglycemia Status: Acute Assessment and Plan: follow accuchecks on oral hypoglycemics and SSI glycemic control Will continue to follow. Subjective Date/time seen: 01/11/22 11:31 Tolerated dialysis treatment yesterday afternoon/evening without any issue or problems; breathing/respiratory status seems to be back to baseline; repeat K+ levels doing significantly better; no other events overnight or earlier this morning; tells me that he want to go home. Exam Narrative: General: chronically ill appearing male in NAD Heart: normal S1 and S2; no rub or gallop Lungs: clear anteriorly; coarse at bases Abdomen: soft, nontender, nondistended, positive bowel sounds Extremities: trace edema Skin: warm and dry Objective Data Vital Signs Vital Signs: Vital Signs Temp Pulse Resp BP Pulse Ox O2 Del Method 01/11/22 08:20 Room Air 01/11/22 08:58 93 Room Air 01/11/22 08:32 84 01/11/22 06:00 37.2 C 74 18 117/55 L 95 01/10/22 20:00 86 18 93 Room Air 01/10/22 21:51 86 01/10/22 19:50 36.6 C 75 18 138/55 L 97 01/10/22 19:45 74 120/55 L 01/10/22 21:01 36.1 C L 78 18 100/49 L 93 01/10/22 19:20 75 133/60 01/10/22 19:00 72 132/57 L 01/10/22 18:40 72 124/58 L 01/10/22 18:20 74 119/55 L 01/10/22 18:00 71 111/50 L 01/10/22 17:40 71 123/60 01/10/22 17:20 71 107/49 L 01/10/22 17:00 67 141/3 H 01/10/22 16:45 66 142/65 H 01/10/22 16:30 36.6 C 68 18 146/65 H 95 Intake/Output Intake/Output: Intake & Output 01/08/22 01/09/22 01/10/22 01/11/22 23:59 23:59 23:59 23:59 Intake Total 920 960 Output Total 1425 350 Balance -505 610 Meds/Results Medications: Active Medications Generic Name Dose Route Start Last Admin Trade Name Osvaldoq PRN Reason Stop Dose Admin Albuterol 2.5 mg 01/10/22 03:56 Albuterol Sulfate Neb 2.5 Mg/3 Ml Inh INHALATION BID PRN sob Albuterol 2.5 mg 01/10/22 08:00 01/11/22 08:54 Albuterol Sulfate Neb 2.5 Mg/3 Ml Inh INHALATION 2.5 mg Q4HRT PUNEET Administration Aspirin 81 mg 01/10/22 21:00 01/10/22 21:53 Aspirin 81 Mg Enteric Tablet PO 81 mg HS PUNEET Administration Atorvastatin Calcium 40 mg 01/10/22 21:00 01/10/22 21:55 Atorvastatin 40 Mg Tablet PO 40 mg HS PUNEET Administration Bisacodyl 10 mg 01/10/22 03:56 Bisac
--- NOTE | 2022-01-11 11:31 | P.PNNP_ITS ---
Progress Note: A&P Assessment and Plan (1) End stage renal disease: Code(s): N18.6 - End stage renal disease Status: Chronic Assessment and Plan: * HD yesterday * continue // schedule while hospitalized * follow electrolytes, volume status, and clearance (2) Acute hypoxemic respiratory failure: Code(s): J96.01 - Acute respiratory failure with hypoxia Status: Acute Assessment and Plan: * resolved/resolving * multifactorial: * pneumonia * mild volume overload * underlying COPD * fluid removal with dialysis * antibiotics * nebulizer treatments * supplemental oxygen PRN (3) Hyperkalemia: Code(s): E87.5 - Hyperkalemia Status: Acute Assessment and Plan: * resolved * as noted by admission labs * interestingly, previously had issues with hypokalemia (from poor oral intake and diarrhea) * holding K+ supplements * s/p medical management * low K+/renal diet (4) Healthcare-associated pneumonia: Code(s): J18.9 - Pneumonia, unspecified organism Status: Acute Assessment and Plan: * suspected based on recent hospitalizations and admission imaging * on IV antibiotics * follow culture data (5) Anemia: Code(s): D64.9 - Anemia, unspecified Status: Chronic Assessment and Plan: * due to ESRD and acute illness * Epogen with HD * follow trend of H/H (6) Type 2 diabetes mellitus with hyperglycemia, without long-term current use of insulin: Code(s): E11.65 - Type 2 diabetes mellitus with hyperglycemia Status: Acute Assessment and Plan: * follow accuchecks * on oral hypoglycemics and SSI * glycemic control Will continue to follow. Subjective Date/time seen: 01/11/22 11:31 Tolerated dialysis treatment yesterday afternoon/evening without any issue or problems; breathing/respiratory status seems to be back to baseline; repeat K+ levels doing significantly better; no other events overnight or earlier this morning; tells me that he want to go home. Exam Narrative: General: chronically ill appearing male in NAD Heart: normal S1 and S2; no rub or gallop Lungs: clear anteriorly; coarse at bases Abdomen: soft, nontender, nondistended, positive bowel sounds Extremities: trace edema Skin: warm and dry Objective Data Vital Signs Vital Signs: Vital Signs Temp Pulse Resp BP Pulse Ox O2 Del Method 01/11/22 08:20 Room Air 01/11/22 08:58 93 Room Air 01/11/22 08:32 84 01/11/22 06:00 37.2 C 74 18 117/55 L 95 01/10/22 20:00 86 18 93 Room Air 01/10/22 21:51 86 01/10/22 19:50 36.6 C 75 18 138/55 L 97 01/10/22 19:45 74 120/55 L 01/10/22 21:01 36.1 C L 78 18 100/49 L 93 01/10/22 19:20 75 133/60 01/10/22 19:00 72 132/57 L 01/10/22 18:40 72 124/58 L 01/10/22 18:20 74 119/55 L 01/10/22 18:00 71 111/50 L 01/10/22 17:40 71 123/60 01/10/22 17:20 71 107/49 L 01/10/22 17:00 67 141/3 H 01/10/22 16:45 66 142/65 H 01/10/22 16:30 36.6 C 68 18 146/65 H 95 Intake/Output Intake/Output:
[2022-01-11] MEDS: INSULIN ASPART (*BKC) 100 UNITS/ML SUB-Q (11:42)
[2022-01-11 16:09] LABS: Glucose Point of Care 121 mg/dl (65-105)
[2022-01-11] MEDS: ASPIRIN 81 MG ENTERIC TABLET PO (20:13)
[2022-01-11] MEDS: ATORVASTATIN 40 MG TABLET PO (20:14)
[2022-01-11 21:13] LABS: Glucose Point of Care 141 mg/dl (65-105)
[2022-01-12] VITALS (9 sets, daily range): BP systolic 93–117; BP diastolic 49–60; PULSE 63–76; RESP 12–18; TEMP 36.3–37; O2SAT 97–99
--- NOTE | 2022-01-12 06:32 | PCRCNOTE ---
Patient refused his 0000 and 0400 breathing treatments.
[2022-01-12 07:21] LABS: Basophils Percent Auto 0.5 % (0.2-1.2); Eosinophils Absolute Auto 0.4 K/mm3 (0-0.3); Eosinophils Percent Auto 6.1 % (0-4.4); Hematocrit 25.5 % (42.0-52.0); Hemoglobin 7.9 g/dL (14.0-18.0); Immature Granulocyte Absolute 0.04 K/mm3 (0.00-0.031); Immature Granulocyte Percent A 0.7 % (0-0.5); Lymphocytes Absolute Auto 1.45 K/mm3 (0.9-3.2); Lymphocytes Percent Auto 25.4 % (18.3-44.2); Mean Corpuscular Hemoglobin 33.2 pg (26-34); Mean Corpuscular Volume 107.1 fl (80-100); Mean Platelet Volume 10.1 fl (7.4-10.4); Monocytes Absolute Auto 0.6 K/mm3 (0.1-0.6); Monocytes Percent Auto 10.9 % (2.6-8.5); Neutrophils Absolute Auto 3.2 K/mm3 (1.3-6.7); Neutrophils Percent Auto 56.4 % (45.5-73.1); Platelet Count Result 182 k/mm3 (150-375); Red Blood Count 2.38 M/mm3 (4.6-6.20); Red Cell Distribution Width 18.5 % (11.5-14.5); White Blood Count 5.7 K/mm3 (4.5-10.0)
[2022-01-12] MEDS: ALBUTEROL SULFATE NEB 2.5 MG/3 ML INH INHALATION (07:32)
[2022-01-12] MEDS: FLUTICASONE/UMECLIDIN/VILANTER 100-62.5-25 MCG ELLIPTA 1 PUFF INHALATION (07:32)
[2022-01-12] MEDS: FERROUS SULFATE 324 MG TABLET PO (07:50)
[2022-01-12] MEDS: GABAPENTIN 300 MG CAPSULE PO ×2 (07:50→17:15)
[2022-01-12] MEDS: OPTI-GEN TAB 1 TABLET PO (07:50)
[2022-01-12] MEDS: carvediloL 12.5 MG TABLET PO ×2 (07:51→20:52)
[2022-01-12] MEDS: FUROSEMIDE 20 MG TABLET PO (07:51)
[2022-01-12] MEDS: PIOGLITAZONE HCL 30 MG TABLET PO (07:51)
[2022-01-12] MEDS: FAMOTIDINE 20 MG TABLET PO ×2 (07:52→17:15)
[2022-01-12] MEDS: ACIDOPHILUS/BULGARICUS CHEWABLE TABLET 1 TABLET PO (07:52)
[2022-01-12] MEDS: DONEPEZIL HCL 10 MG TABLET PO (07:52)
[2022-01-12 07:57] LABS: Glucose Point of Care 127 mg/dl (65-105)
[2022-01-12 08:00] LABS: Anisocytosis 1+ (NORMAL); Hypochromasia 1+ (NORMAL); Macrocytosis 1+ (NORMAL); Platelet Estimate Adequate (Adequate)
[2022-01-12 08:01] LABS: Schistocytes None Seen (NORMAL)
--- NOTE | 2022-01-12 08:30 | PC.NURSE ---
to xray per stretcher
[2022-01-12 08:33] LABS: Alanine Aminotransferase 12 U/L (6-50); Albumin Level 2.3 g/dL (3.5-5.1); Alkaline Phosphatase 60 U/L (38-126); Anion Gap 8 mmol/L (8-16); Aspartate Amino Transferase 26 U/L (17-59); Bilirubin,Total 0.3 mg/dL (0.2-1.3); Blood Urea Nitrogen 17 mg/dL (9-20); Calcium 8.4 mg/dL (8.4-10.2); Carbon Dioxide 28 mmol/L (22-30); Chloride 97 mmol/L (98-107); Estimated CRCL calculation 20 ml/min; Estimated Glomerular Filt Rate 24; Glucose 110 mg/dL (65-110); Potassium 4.2 mmol/L (3.4-5.0); Sodium 133 mmol/L (137-145)
[2022-01-12 09:40] LABS: Hemoglobin A1C 4.6 % (<5.7)
--- NOTE | 2022-01-12 10:44 | P.PNIM_ITS ---
Progress Note: A&P Assessment and Plan (1) Healthcare-associated pneumonia: Code(s): J18.9 - Pneumonia, unspecified organism Status: Acute Assessment and Plan: patient with recent hospitalization in December presented with increased shortness of breath, CXR showed diffuse bilateral interstitial infiltrates. * continue vancomycin, aztreonam, and azithromycin. Penicillin allergy noted. * blood cultures are pending * obtain sputum culture * COVID negative, influenza negative * will check urinary Legionella and pneumococcal antigens * supportive care. bronchodilators, expectorants, incentive spirometry, CPT (2) Pleural effusion, left: Code(s): J90 - Pleural effusion, not elsewhere classified Status: Acute Assessment and Plan: CXR revealed near complete opacification of the left hemithorax consistent with large left effusion with underlying compressive atelectasis * will proceed with diagnostic thoracentesis today * appreciate pulmonology consultation * repeat CXR in a.m. following thoracentesis. (3) Acute hyperkalemia: Code(s): E87.5 - Hyperkalemia Status: Acute Assessment and Plan: Potassium 6.5 on arrival. Likely due to ESRD. * Resolved following appropriate treatment. * Potassium 4.2 today. * Appreciate nephrology management (4) End stage renal disease: Code(s): N18.6 - End stage renal disease Status: Chronic Assessment and Plan: Maintained on hemodialysis Thursday, Thursday, Thursday * nephrology following for dialysis management during admission * continue dialysis schedule (5) COPD (chronic obstructive pulmonary disease): Code(s): J44.9 - Chronic obstructive pulmonary disease, unspecified Status: Acute Assessment and Plan: not in acute exacerbation * albuterol as needed * home breztri is nonformulary (6) Type 2 diabetes mellitus with hyperglycemia, without long-term current use of insulin: Code(s): E11.65 - Type 2 diabetes mellitus with hyperglycemia Status: Acute Assessment and Plan: A1c is 4.6. Blood sugars have been well controlled this admission * continue Accu-Cheks, low-dose sliding scale insulin, and hypoglycemic protocol * linagliptin and pioglitazone on hold * monitor glucose trends and adjust insulin regimen as needed (7) History of Clostridioides difficile colitis: Code(s): Z86.19 - Personal history of other infectious and parasitic diseases Status: Acute Assessment and Plan: recent admission 12/07-12/17/21 due to C diff infection * No diarrhea at this time. Monitor stool patterns closely, especially in light of broad-spectrum antibiotics for HAP coverage. Narrow antibiotics when appropriate * Probiotics TID Subjective Date/time seen: 01/12/22 10:44 Interval history: Date of service: 01/12/2022 Miky Fuentes is a 81-year-old male with a history of COPD, CAD, type 2 diabetes mellitus, hypertension, hyperlipidemia, GERD, orthostatic hypotension, ESRD on hemodialysis and recent hospital admission 3 weeks ago for C diff colitis who is seen in follow-up for hospital-acquired pneumonia. The patient states he is feeling well today. He is very eager for discharge home. He denies shortness of breath. He does endorse cough but no sputum production. Also endorses wheezing. Denies dyspnea on exertion. No chest pain. He denies urinary symptoms. States he has had 2 loose stools today but denies diarrhea. Tolerating his diet. No nausea, vom
--- NOTE | 2022-01-12 10:44 | PM.IMPN ---
Progress Note: A&P Assessment and Plan (1) Healthcare-associated pneumonia: Code(s): J18.9 - Pneumonia, unspecified organism Status: Acute Assessment and Plan: patient with recent hospitalization in December presented with increased shortness of breath, CXR showed diffuse bilateral interstitial infiltrates. continue vancomycin, aztreonam, and azithromycin. Penicillin allergy noted. blood cultures are pending obtain sputum culture COVID negative, influenza negative will check urinary Legionella and pneumococcal antigens supportive care. bronchodilators, expectorants, incentive spirometry, CPT (2) Pleural effusion, left: Code(s): J90 - Pleural effusion, not elsewhere classified Status: Acute Assessment and Plan: CXR revealed near complete opacification of the left hemithorax consistent with large left effusion with underlying compressive atelectasis will proceed with diagnostic thoracentesis today appreciate pulmonology consultation repeat CXR in a.m. following thoracentesis. (3) Acute hyperkalemia: Code(s): E87.5 - Hyperkalemia Status: Acute Assessment and Plan: Potassium 6.5 on arrival. Likely due to ESRD. Resolved following appropriate treatment. Potassium 4.2 today. Appreciate nephrology management (4) End stage renal disease: Code(s): N18.6 - End stage renal disease Status: Chronic Assessment and Plan: Maintained on hemodialysis Thursday, Thursday, Thursday nephrology following for dialysis management during admission continue dialysis schedule (5) COPD (chronic obstructive pulmonary disease): Code(s): J44.9 - Chronic obstructive pulmonary disease, unspecified Status: Acute Assessment and Plan: not in acute exacerbation albuterol as needed home breztri is nonformulary (6) Type 2 diabetes mellitus with hyperglycemia, without long-term current use of insulin: Code(s): E11.65 - Type 2 diabetes mellitus with hyperglycemia Status: Acute Assessment and Plan: A1c is 4.6. Blood sugars have been well controlled this admission continue Accu-Cheks, low-dose sliding scale insulin, and hypoglycemic protocol linagliptin and pioglitazone on hold monitor glucose trends and adjust insulin regimen as needed (7) History of Clostridioides difficile colitis: Code(s): Z86.19 - Personal history of other infectious and parasitic diseases Status: Acute Assessment and Plan: recent admission 12/07-12/17/21 due to C diff infection No diarrhea at this time. Monitor stool patterns closely, especially in light of broad-spectrum antibiotics for HAP coverage. Narrow antibiotics when appropriate Probiotics TID Subjective Date/time seen: 01/12/22 10:44 Interval history: Date of service: 01/12/2022 Miky Fuentes is a 81-year-old male with a history of COPD, CAD, type 2 diabetes mellitus, hypertension, hyperlipidemia, GERD, orthostatic hypotension, ESRD on hemodialysis and recent hospital admission 3 weeks ago for C diff colitis who is seen in follow-up for hospital-acquired pneumonia. The patient states he is feeling well today. He is very eager for discharge home. He denies shortness of breath. He does endorse cough but no sputum production. Also endorses wheezing. Denies dyspnea on exertion. No chest pain. He denies urinary symptoms. States he has had 2 loose stools today but denies diarrhea. Tolerating his diet. No nausea, vomiting, fever, or chills. Review of Systems Review of Systems: All systems reviewed & are unremarkable except as noted in HPI and below Exam Narrative: General: Well-nourished, chronically ill-appearing 81-year-old male, sitting up in bed, comfortable, NARD Neuro: awake, alert and oriented x4, speech clear, no focal neuro deficits noted, exhibits some mild confusion HEENMT: normocephalic, atraumati
[2022-01-12 11:31] LABS: Glucose Point of Care 196 mg/dl (65-105)
[2022-01-12 11:39] LABS: Albumin Level 2.3 g/dL (3.5-5.1); Lactate Dehydrogenase 140 U/L (120-246)
--- NOTE | 2022-01-12 12:45 | P.PNNP_ITS ---
Progress Note: A&P Assessment and Plan (1) End stage renal disease: Code(s): N18.6 - End stage renal disease Status: Chronic Assessment and Plan: * HD tomorrow * continue M/W/ schedule while hospitalized * follow electrolytes, volume status, and clearance (2) Acute hypoxemic respiratory failure: Code(s): J96.01 - Acute respiratory failure with hypoxia Status: Acute Assessment and Plan: * resolved/resolving * multifactorial: * pneumonia * mild volume overload * underlying COPD * fluid removal with dialysis * antibiotics * nebulizer treatments * supplemental oxygen PRN (3) Hyperkalemia: Code(s): E87.5 - Hyperkalemia Status: Acute Assessment and Plan: * resolved * as noted by admission labs * interestingly, previously had issues with hypokalemia (from poor oral intake and diarrhea) * holding K+ supplements * s/p medical management * low K+/renal diet (4) Healthcare-associated pneumonia: Code(s): J18.9 - Pneumonia, unspecified organism Status: Acute Assessment and Plan: * suspected based on recent hospitalizations and admission imaging * on IV antibiotics * follow culture data (5) Anemia: Code(s): D64.9 - Anemia, unspecified Status: Chronic Assessment and Plan: * due to ESRD and acute illness * Epogen with HD * follow trend of H/H (6) Type 2 diabetes mellitus with hyperglycemia, without long-term current use of insulin: Code(s): E11.65 - Type 2 diabetes mellitus with hyperglycemia Status: Acute Assessment and Plan: * follow accuchecks * on oral hypoglycemics and SSI * glycemic control Will continue to follow. Subjective Date/time seen: 01/12/22 12:45 Respiratory status appears stable if not better at the time of my visit; reports some wheezing at times but no worse than baseline; no other acute issues/events at this time; anxious for discharge. Exam Narrative: General: chronically ill appearing male in NAD Heart: normal S1 and S2; no rub or gallop Lungs: clear anteriorly; coarse at bases Abdomen: soft, nontender, nondistended, positive bowel sounds Extremities: trace edema Skin: warm and dry Objective Data Vital Signs Vital Signs: Vital Signs Temp Pulse Resp BP Pulse Ox O2 Del Method 01/12/22 07:51 72 01/12/22 07:35 72 12 01/12/22 07:33 67 12 01/12/22 06:00 36.4 C L 65 18 102/59 L 97 01/11/22 22:00 36.7 C 71 18 101/44 L 97 01/11/22 20:40 71 20 01/11/22 20:30 71 94 Room Air 01/11/22 20:30 74 20 01/11/22 20:00 Room Air 01/11/22 20:13 68 01/11/22 16:19 69 20 01/11/22 16:10 68 20 Intake/Output Intake/Output: Intake & Output 01/09/22 01/10/22 01/11/22 01/12/22 23:59 23:59 23:59 23:59 Intake Total 920 2080 660 Output Total 1425 526 375 Balance -505 1554 285 Meds/Results Medications: Active Medications Generic Name Dose Route Start Last Admin Trade Name Amelia Russ
--- NOTE | 2022-01-12 12:45 | PM.PNNEP ---
Progress Note: A&P Assessment and Plan (1) End stage renal disease: Code(s): N18.6 - End stage renal disease Status: Chronic Assessment and Plan: HD tomorrow continue M/W/F schedule while hospitalized follow electrolytes, volume status, and clearance (2) Acute hypoxemic respiratory failure: Code(s): J96.01 - Acute respiratory failure with hypoxia Status: Acute Assessment and Plan: resolved/resolving multifactorial: pneumonia mild volume overload underlying COPD fluid removal with dialysis antibiotics nebulizer treatments supplemental oxygen PRN (3) Hyperkalemia: Code(s): E87.5 - Hyperkalemia Status: Acute Assessment and Plan: resolved as noted by admission labs interestingly, previously had issues with hypokalemia (from poor oral intake and diarrhea) holding K+ supplements s/p medical management low K+/renal diet (4) Healthcare-associated pneumonia: Code(s): J18.9 - Pneumonia, unspecified organism Status: Acute Assessment and Plan: suspected based on recent hospitalizations and admission imaging on IV antibiotics follow culture data (5) Anemia: Code(s): D64.9 - Anemia, unspecified Status: Chronic Assessment and Plan: due to ESRD and acute illness Epogen with HD follow trend of H/H (6) Type 2 diabetes mellitus with hyperglycemia, without long-term current use of insulin: Code(s): E11.65 - Type 2 diabetes mellitus with hyperglycemia Status: Acute Assessment and Plan: follow accuchecks on oral hypoglycemics and SSI glycemic control Will continue to follow. Subjective Date/time seen: 01/12/22 12:45 Respiratory status appears stable if not better at the time of my visit; reports some wheezing at times but no worse than baseline; no other acute issues/events at this time; anxious for discharge. Exam Narrative: General: chronically ill appearing male in NAD Heart: normal S1 and S2; no rub or gallop Lungs: clear anteriorly; coarse at bases Abdomen: soft, nontender, nondistended, positive bowel sounds Extremities: trace edema Skin: warm and dry Objective Data Vital Signs Vital Signs: Vital Signs Temp Pulse Resp BP Pulse Ox O2 Del Method 01/12/22 07:51 72 01/12/22 07:35 72 12 01/12/22 07:33 67 12 01/12/22 06:00 36.4 C L 65 18 102/59 L 97 01/11/22 22:00 36.7 C 71 18 101/44 L 97 01/11/22 20:40 71 20 01/11/22 20:30 71 94 Room Air 01/11/22 20:30 74 20 01/11/22 20:00 Room Air 01/11/22 20:13 68 01/11/22 16:19 69 20 01/11/22 16:10 68 20 Intake/Output Intake/Output: Intake & Output 01/09/22 01/10/22 01/11/22 01/12/22 23:59 23:59 23:59 23:59 Intake Total 920 2080 660 Output Total 1425 526 375 Balance -505 1554 285 Meds/Results Medications: Active Medications Generic Name Dose Route Start Last Admin Trade Name Freq PRN Reason Stop Dose Admin Albuterol 2.5 mg 01/10/22 03:56 Albuterol Sulfate Neb 2.5 Mg/3 Ml Inh INHALATION BID PRN sob Albuterol 2.5 mg 01/12/22 11:19 Albuterol Sulfate Neb 2.5 Mg/3 Ml Inh INHALATION Q4HRT PRN Bronchospasm Aspirin 81 mg 01/10/22 21:00 01/11/22 20:13 Aspirin 81 Mg Enteric Tablet PO 81 mg HS PUNEET Administration Atorvastatin Calcium 40 mg 01/10/22 21:00 01/11/22 20:14 Atorvastatin 40 Mg Tablet PO 40 mg HS PUNEET Administration Bisacodyl 10 mg 01/10/22 03:56 Bisacodyl 10 Mg Suppository RECTAL DAILY PRN Constipation Carvedilol 12.5 mg 01/10/22 09:00 01/12/22 07:51 Carvedilol 12.5 Mg Tablet PO 12.5 mg Q12HR PUNEET Administration Dextrose 12.5 gm 01/10/22 00:00 Dextrose 50% 25 Gm/50 Ml Syringe IV PUSH PRN PRN Hypoglycemia Protocol Donepezil HCl 10 mg 01/10/22 09:00 01/12/22 07:52 Donepezil Hcl 10
[2022-01-12 12:51] LABS: INR 1.1
[2022-01-12 12:52] LABS: Partial Thromboplastin Time 33.9 SECONDS (22.3-36.8)
[2022-01-12 16:48] LABS: Glucose Point of Care 155 mg/dl (65-105)
[2022-01-12] MEDS: SACCHAROMYCES BOULARDII 250 MG CAPSULE PO (17:15)
[2022-01-12 19:56] LABS: Glucose Point of Care 172 mg/dl (65-105)
[2022-01-12 20:46] LABS: Vancomycin Random 17.5 ug/mL (10-20)
[2022-01-12] MEDS: ASPIRIN 81 MG ENTERIC TABLET PO (20:52)
[2022-01-12] MEDS: ATORVASTATIN 40 MG TABLET PO (20:52)
[2022-01-13] VITALS (25 sets, daily range): BP systolic 92–139; BP diastolic 50–69; PULSE 49–84; RESP 14–18; TEMP 36.5–37.6; O2SAT 94–100
[2022-01-13] MEDS: oxyCODONE HCL (*CRX) 5 MG TAB IR PO (05:48)
[2022-01-13 06:13] LABS: Hematocrit 24.4 % (42.0-52.0); Hemoglobin 7.4 g/dL (14.0-18.0); Mean Corpuscular HGB Conc 30.3 g/dl (32-36); Mean Corpuscular Hemoglobin 32.5 pg (26-34); Mean Platelet Volume 10.2 fl (7.4-10.4); Platelet Count Result 190 k/mm3 (150-375); Red Blood Count 2.28 M/mm3 (4.6-6.20); Red Cell Distribution Width 18.2 % (11.5-14.5); White Blood Count 6.3 K/mm3 (4.5-10.0)
[2022-01-13 06:24] LABS: Alanine Aminotransferase 11 U/L (6-50); Albumin Level 2.2 g/dL (3.5-5.1); Alkaline Phosphatase 69 U/L (38-126); Anion Gap 9 mmol/L (8-16); Aspartate Amino Transferase 16 U/L (17-59); Bilirubin,Total 0.2 mg/dL (0.2-1.3); Blood Urea Nitrogen 23 mg/dL (9-20); Carbon Dioxide 26 mmol/L (22-30); Chloride 98 mmol/L (98-107); Estimated CRCL calculation 17 ml/min; Estimated Glomerular Filt Rate 20; Glucose 193 mg/dL (65-110); Potassium 3.8 mmol/L (3.4-5.0); Sodium 133 mmol/L (137-145)
[2022-01-13 07:51] LABS: Glucose Point of Care 104 mg/dl (65-105)
[2022-01-13] MEDS: MIDODRINE HCL 10 MG TABLET PO (08:35)
--- NOTE | 2022-01-13 10:40 | PCPTNOTE ---
Attempted PT evaluation, pt is currently at dialysis then will be going for a thoracentesis. Per RN, pt would not likely be available until 15:30-16:00.
--- NOTE | 2022-01-13 10:42 | PCOTNOTE ---
Attempted OT evaluation, pt is currently at dialysis then will be going for a thoracentesis. Per RN, pt would not likely be available until 15:30-16:00.
--- NOTE | 2022-01-13 11:08 | PM.CNPUL ---
Assessment and Plan Assessment and plan (1) Pleural effusion, left: Code(s): J90 - Pleural effusion, not elsewhere classified Status: Acute Assessment and Plan: Chest x-ray on 12/26/2021 demonstrates left lower lobe consolidation with silhouetting of the left hemidiaphragm with no change compared to 12/08/2021. Chest x-ray on 12/08/2021 demonstrates consolidation of the left lower lobe with silhouetting of the left hemidiaphragm. CT scan of the abdomen on 12/06/2021 demonstrates a small left pleural effusion with adjacent compressive atelectasis. CT scan of the chest on 10/22/2021 showed patchy areas of ground-glass opacity centrilobular nodules with bibasilar atelectasis but no left pleural effusion or consolidation. the left pleural effusion developed after 10/22/2021 and had remained stable through 12/26/2021. Chest x-ray on 01/09/2022 shows left lower lobe consolidation similar to 12/26/2021. On 01/11 the patient had near complete opacification of his left hemithorax with only about 5% of the left upper lobe with air and shift to the mediastinum to the left. The right lung is clear. 01/12/2022 complete opacification of the left hemithorax. 01/13/2022 approximately 90% of the left hemithorax is opacified. I suspect this is a combination of mucus plugging with collapse and or left pleural effusion. he has no history of aspirating or choking on his food well in the hospital. Agree with left thoracentesis with an attempt to evacuate any fluid that is there. In the meantime will provide aggressive pulmonary toilet in case this is a mucus plug. I will place the patient on albuterol and ipratropium nebulizers q.4 hours, Pulmozyme 0.25 mg q.12 hours, chest physiotherapy, Acapella flutter device Q 4 hours while awake, out of bed to a chair, incentive spirometry. Spoke with Bernadine Shi, will follow with you. (2) Healthcare-associated pneumonia: Code(s): J18.9 - Pneumonia, unspecified organism Status: Acute Assessment and Plan: the patient is afebrile, has no white blood cell count, no sputum production and cultures remain negative. I think it is unlikely that the patient has pneumonia but at this time I will continue aztreonam, vancomycin and azithromycin pending thoracentesis to exclude empyema. (3) COPD (chronic obstructive pulmonary disease): Code(s): J44.9 - Chronic obstructive pulmonary disease, unspecified Status: Acute Assessment and Plan: Patient carries a diagnosis of COPD and has 147 pack year tobacco use, currently smoking at 4-5 cigarettes a day. I have no PFTs. No bullous emphysema on his CT scan from 10/22/2021. He is not on supplemental oxygen and is maintained on bread as tree and albuterol at its [place]. I do not feel there is an active COPD exacerbation at this time. I do not feel a need for oral or systemic steroids. No wheezes, I will continue albuterol and ipratropium nebulizers q.4 hours. History of Present Illness History of Present Illness Consult date: 01/13/22 Chief complaint: Hyperkalemia Narrative: 01/13/2022: This is a new pulmonary consult for left pleural effusion. 81-year-old male with a history of coronary artery disease status post CABG x3 in 2000, diabetes, COVID pneumonia on 10/06/2021 intubated and extubated on 10/11/2021, right leg DVT of the posterior tibial on 10/08/2021, end-stage renal disease on hemodialysis Thursday and Thursday, tobacco use at 147 pack years and currently smoking 4-5 cigarettes a day with COPD. At baseline the patient tells me he is very limited in his ability to walk because of sciatica. He uses a wheelchair for the last 3-4 weeks. He smoked 3 packs per day from [id number] and is currently smoking at 4-5 cigarettes a day. The patient tells me that he will never quit because this is the only thing the gives image ointment. The patient denies stand blasting, vaping, illicit drug use.
[2022-01-13 11:36] LABS: Glucose Point of Care 94 mg/dl (65-105)
--- NOTE | 2022-01-13 11:44 | P.PNNP_ITS ---
Progress Note: A&P Assessment and Plan (1) End stage renal disease: Code(s): N18.6 - End stage renal disease Status: Chronic Assessment and Plan: * HD tomorrow * continue M/W/ schedule while hospitalized * follow electrolytes, volume status, and clearance (2) Acute hypoxemic respiratory failure: Code(s): J96.01 - Acute respiratory failure with hypoxia Status: Acute Assessment and Plan: * resolved/resolving * multifactorial: * pneumonia * mild volume overload * pleural effusion * underlying COPD * fluid removal with dialysis * antibiotics * nebulizer treatments * supplemental oxygen PRN * need thoracentesis?? (3) Hyperkalemia: Code(s): E87.5 - Hyperkalemia Status: Acute Assessment and Plan: * resolved * as noted by admission labs * interestingly, previously had issues with hypokalemia (from poor oral intake and diarrhea) * holding K+ supplements * s/p medical management * low K+/renal diet (4) Healthcare-associated pneumonia: Code(s): J18.9 - Pneumonia, unspecified organism Status: Acute Assessment and Plan: * suspected based on recent hospitalizations and admission imaging * on IV antibiotics * follow culture data (5) Anemia: Code(s): D64.9 - Anemia, unspecified Status: Chronic Assessment and Plan: * due to ESRD and acute illness * Epogen with HD * follow trend of H/H (6) Type 2 diabetes mellitus with hyperglycemia, without long-term current use of insulin: Code(s): E11.65 - Type 2 diabetes mellitus with hyperglycemia Status: Acute Assessment and Plan: * follow accuchecks * on oral hypoglycemics and SSI * glycemic control Will continue to follow. Subjective Date/time seen: 01/13/22 11:44 Tolerating hemodialysis treatment at the time of my visit (seen on HD at 11:25AM); resting comfortably on dialysis; no apparent distress voiced; no issues/events overnight or earlier this morning. Exam Narrative: General: chronically ill appearing male in NAD Heart: normal S1 and S2; no rub or gallop Lungs: clear anteriorly; coarse at bases Abdomen: soft, nontender, nondistended, positive bowel sounds Extremities: trace edema Skin: warm and intact Objective Data Vital Signs Vital Signs: Vital Signs Temp Pulse Resp BP Pulse Ox O2 Del Method 01/13/22 09:57 65 122/60 01/13/22 09:45 36.6 C 67 16 117/62 01/13/22 08:00 Room Air 01/13/22 05:19 37.1 C 78 18 92/50 L 97 01/13/22 00:12 95 Room Air 01/12/22 20:00 76 17 99 Room Air 01/12/22 21:35 37.0 C 76 17 93/60 L 99 01/12/22 20:52 63 01/12/22 14:00 36.3 C L 63 18 109/60 99 Intake/Output Intake/Output: Intake & Output 01/10/22 01/11/22 01/12/22 01/13/22 23:59 23:59 23:59 23:59 Intake Total 920 2080 1480 250 Output Total 1425 526 775 150 Balance -505 1554 705 100 Meds/Results Medications: Active Medications Generic Name Dose Route Start Last Admin Trade Name Freq PRN Reason Stop
--- NOTE | 2022-01-13 11:44 | PM.PNNEP ---
Progress Note: A&P Assessment and Plan (1) End stage renal disease: Code(s): N18.6 - End stage renal disease Status: Chronic Assessment and Plan: HD tomorrow continue M/W/F schedule while hospitalized follow electrolytes, volume status, and clearance (2) Acute hypoxemic respiratory failure: Code(s): J96.01 - Acute respiratory failure with hypoxia Status: Acute Assessment and Plan: resolved/resolving multifactorial: pneumonia mild volume overload pleural effusion underlying COPD fluid removal with dialysis antibiotics nebulizer treatments supplemental oxygen PRN need thoracentesis?? (3) Hyperkalemia: Code(s): E87.5 - Hyperkalemia Status: Acute Assessment and Plan: resolved as noted by admission labs interestingly, previously had issues with hypokalemia (from poor oral intake and diarrhea) holding K+ supplements s/p medical management low K+/renal diet (4) Healthcare-associated pneumonia: Code(s): J18.9 - Pneumonia, unspecified organism Status: Acute Assessment and Plan: suspected based on recent hospitalizations and admission imaging on IV antibiotics follow culture data (5) Anemia: Code(s): D64.9 - Anemia, unspecified Status: Chronic Assessment and Plan: due to ESRD and acute illness Epogen with HD follow trend of H/H (6) Type 2 diabetes mellitus with hyperglycemia, without long-term current use of insulin: Code(s): E11.65 - Type 2 diabetes mellitus with hyperglycemia Status: Acute Assessment and Plan: follow accuchecks on oral hypoglycemics and SSI glycemic control Will continue to follow. Subjective Date/time seen: 01/13/22 11:44 Tolerating hemodialysis treatment at the time of my visit (seen on HD at 11:25AM); resting comfortably on dialysis; no apparent distress voiced; no issues/events overnight or earlier this morning. Exam Narrative: General: chronically ill appearing male in NAD Heart: normal S1 and S2; no rub or gallop Lungs: clear anteriorly; coarse at bases Abdomen: soft, nontender, nondistended, positive bowel sounds Extremities: trace edema Skin: warm and intact Objective Data Vital Signs Vital Signs: Vital Signs Temp Pulse Resp BP Pulse Ox O2 Del Method 01/13/22 09:57 65 122/60 01/13/22 09:45 36.6 C 67 16 117/62 01/13/22 08:00 Room Air 01/13/22 05:19 37.1 C 78 18 92/50 L 97 01/13/22 00:12 95 Room Air 01/12/22 20:00 76 17 99 Room Air 01/12/22 21:35 37.0 C 76 17 93/60 L 99 01/12/22 20:52 63 01/12/22 14:00 36.3 C L 63 18 109/60 99 Intake/Output Intake/Output: Intake & Output 01/10/22 01/11/22 01/12/22 01/13/22 23:59 23:59 23:59 23:59 Intake Total 920 2080 1480 250 Output Total 1425 526 775 150 Balance -505 1554 705 100 Meds/Results Medications: Active Medications Generic Name Dose Route Start Last Admin Trade Name Freq PRN Reason Stop Dose Admin Albuterol 2.5 mg 01/12/22 11:19 Albuterol Sulfate Neb 2.5 Mg/3 Ml Inh INHALATION Q4HRT PRN Bronchospasm Albuterol 2.5 mg 01/13/22 12:00 Albuterol Sulfate Neb 2.5 Mg/3 Ml Inh INHALATION Q4HRT PUNEET Aspirin 81 mg 01/10/22 21:00 01/12/22 20:52 Aspirin 81 Mg Enteric Tablet PO 81 mg HS PUNEET Administration Atorvastatin Calcium 40 mg 01/10/22 21:00 01/12/22 20:52 Atorvastatin 40 Mg Tablet PO 40 mg HS PUNEET Administration Bisacodyl 10 mg 01/10/22 03:56 Bisacodyl 10 Mg Suppository RECTAL DAILY PRN Constipation Carvedilol 12.5 mg 01/10/22 09:00 01/12/22 20:52 Carvedilol 12.5 Mg Tablet PO 12.5 mg Q12HR PUNEET Administration Dextrose 12.5 gm 01/10/22 00:00 Dextrose 50% 25 Gm/50 Ml Syringe IV PUSH PRN PRN Hypoglycemia Protocol Donepezil HCl 10 mg 01/10/22 09:00 01/12/22 07:52 Donepezil Hcl
--- NOTE | 2022-01-13 11:54 | P.PNIM_ITS ---
Progress Note: A&P Assessment and Plan (1) Healthcare-associated pneumonia: Code(s): J18.9 - Pneumonia, unspecified organism Status: Acute Assessment and Plan: patient with recent hospitalization in December presented with increased shortness of breath, CXR showed diffuse bilateral interstitial infiltrates. * continue vancomycin, aztreonam, and azithromycin. Penicillin allergy noted. * blood cultures are pending * obtain sputum culture * COVID negative, influenza negative * will check urinary Legionella and pneumococcal antigens * supportive care. bronchodilators, expectorants, incentive spirometry, CPT (2) Pleural effusion, left: Code(s): J90 - Pleural effusion, not elsewhere classified Status: Acute Assessment and Plan: CXR revealed near complete opacification of the left hemithorax consistent with large left effusion with underlying compressive atelectasis * will proceed with diagnostic thoracentesis today * appreciate pulmonology consultation, and will follow their recommendations. * repeat CXR in a.m. following thoracentesis. (3) Acute hyperkalemia: Code(s): E87.5 - Hyperkalemia Status: Acute Assessment and Plan: Potassium 6.5 on arrival. Likely due to ESRD. * Resolved following appropriate treatment. * Dialysis today. * Potassium 4.2 today. * Appreciate nephrology management (4) End stage renal disease: Code(s): N18.6 - End stage renal disease Status: Chronic Assessment and Plan: Maintained on hemodialysis Thursday, Thursday, Thursday * nephrology following for dialysis management during admission * continue dialysis schedule (5) COPD (chronic obstructive pulmonary disease): Code(s): J44.9 - Chronic obstructive pulmonary disease, unspecified Status: Acute Assessment and Plan: not in acute exacerbation * albuterol as needed * home breztri is nonformulary * Follow Pulmonology recs. (6) Type 2 diabetes mellitus with hyperglycemia, without long-term current use of insulin: Code(s): E11.65 - Type 2 diabetes mellitus with hyperglycemia Status: Acute Assessment and Plan: A1c is 4.6. Blood sugars have been well controlled this admission * continue Accu-Cheks, low-dose sliding scale insulin, and hypoglycemic protocol * linagliptin and pioglitazone on hold * monitor glucose trends and adjust insulin regimen as needed (7) History of Clostridioides difficile colitis: Code(s): Z86.19 - Personal history of other infectious and parasitic diseases Status: Acute Assessment and Plan: recent admission 12/07-12/17/21 due to C diff infection * No diarrhea at this time. Monitor stool patterns closely, especially in light of broad-spectrum antibiotics for HAP coverage. Narrow antibiotics when appropriate * Probiotics TID Time Spent With Patient Time with patient: 15 - 25 minutes Subjective Date/time seen: 01/13/22 2613 This patient was examined at the bedside today in interval assessment. He is here being treated for what is presumed a HAP from his most recent ICU admission where he was intubated. He is receiving Azithromycin and Aztreonam. He continues to have a significant amount of collapse vs. mucous plugging in the left lung, causing a whiteout appearance on CXR today. He is set for Thoracentesis today to attempt to evaluate any fluid that may be there. He is being followed by Pulmonology and in the meantime, he is going to have aggressive pulmonary toileting whi
--- NOTE | 2022-01-13 11:54 | PM.IMPN ---
Progress Note: A&P Assessment and Plan (1) Healthcare-associated pneumonia: Code(s): J18.9 - Pneumonia, unspecified organism Status: Acute Assessment and Plan: patient with recent hospitalization in December presented with increased shortness of breath, CXR showed diffuse bilateral interstitial infiltrates. continue vancomycin, aztreonam, and azithromycin. Penicillin allergy noted. blood cultures are pending obtain sputum culture COVID negative, influenza negative will check urinary Legionella and pneumococcal antigens supportive care. bronchodilators, expectorants, incentive spirometry, CPT (2) Pleural effusion, left: Code(s): J90 - Pleural effusion, not elsewhere classified Status: Acute Assessment and Plan: CXR revealed near complete opacification of the left hemithorax consistent with large left effusion with underlying compressive atelectasis will proceed with diagnostic thoracentesis today appreciate pulmonology consultation, and will follow their recommendations. repeat CXR in a.m. following thoracentesis. (3) Acute hyperkalemia: Code(s): E87.5 - Hyperkalemia Status: Acute Assessment and Plan: Potassium 6.5 on arrival. Likely due to ESRD. Resolved following appropriate treatment. Dialysis today. Potassium 4.2 today. Appreciate nephrology management (4) End stage renal disease: Code(s): N18.6 - End stage renal disease Status: Chronic Assessment and Plan: Maintained on hemodialysis Thursday, Thursday, Thursday nephrology following for dialysis management during admission continue dialysis schedule (5) COPD (chronic obstructive pulmonary disease): Code(s): J44.9 - Chronic obstructive pulmonary disease, unspecified Status: Acute Assessment and Plan: not in acute exacerbation albuterol as needed home libertyi is nonformulary Follow Pulmonology recs. (6) Type 2 diabetes mellitus with hyperglycemia, without long-term current use of insulin: Code(s): E11.65 - Type 2 diabetes mellitus with hyperglycemia Status: Acute Assessment and Plan: A1c is 4.6. Blood sugars have been well controlled this admission continue Accu-Cheks, low-dose sliding scale insulin, and hypoglycemic protocol linagliptin and pioglitazone on hold monitor glucose trends and adjust insulin regimen as needed (7) History of Clostridioides difficile colitis: Code(s): Z86.19 - Personal history of other infectious and parasitic diseases Status: Acute Assessment and Plan: recent admission 12/07-12/17/21 due to C diff infection No diarrhea at this time. Monitor stool patterns closely, especially in light of broad-spectrum antibiotics for HAP coverage. Narrow antibiotics when appropriate Probiotics TID Time Spent With Patient Time with patient: 15 - 25 minutes Subjective Date/time seen: 01/13/22 4979 This patient was examined at the bedside today in interval assessment. He is here being treated for what is presumed a HAP from his most recent ICU admission where he was intubated. He is receiving Azithromycin and Aztreonam. He continues to have a significant amount of collapse vs. mucous plugging in the left lung, causing a whiteout appearance on CXR today. He is set for Thoracentesis today to attempt to evaluate any fluid that may be there. He is being followed by Pulmonology and in the meantime, he is going to have aggressive pulmonary toileting while continuing abx until we know whether or not the fluid is an empyema. In addition, he is due for Dialysis today, managed by Nephrology. He has no complaints for me today and no concerns. He reports that he believes his breathing is without any complication and he does not feel dyspneic at all. He has no CP, N/V/D/headache, dizziness or lightheadedness to report. Review of Systems Review of Systems: All systems revi
[2022-01-13] MEDS: SODIUM CHLORIDE 0.9% IV 1,000 ML 999 ML IV CONT (12:18)
[2022-01-13] MEDS: EPOETIN ALFA-EPBX 10,000 UNITS/ML VIAL 10000 UNITS IV PUSH (12:18)
--- NOTE | 2022-01-13 14:01 | PCRCNOTE ---
Window of time for administration has passed. See next scheduled administration.
[2022-01-13] MEDS: ALBUTEROL SULFATE NEB 2.5 MG/3 ML INH INHALATION ×3 (16:03→23:49)
[2022-01-13] MEDS: IPRATROPIUM BR 0.02% INH SOLN 0.5 MG/2.5 ML VIAL INHALATION ×3 (16:03→23:49)
[2022-01-13 16:10] LABS: Appearance Pleural Fluid Cloudy (Clear); Pleural fluid source Pleural fluid
[2022-01-13 16:13] LABS: Color Pleural Fluid Brown (Colorless); Lymphocytes Pleural Fluid 85 %; Monocytes Pleural Fluid 2 %; Neutrophils Pleural Fluid 13 % (0-25)
[2022-01-13 16:34] LABS: pH Pleural Fluid 7.468 (7.210-7.500)
[2022-01-13] MEDS: SACCHAROMYCES BOULARDII 250 MG CAPSULE PO (16:43)
[2022-01-13] MEDS: FAMOTIDINE 20 MG TABLET PO (16:43)
[2022-01-13] MEDS: GABAPENTIN 300 MG CAPSULE PO (16:43)
[2022-01-13 17:10] LABS: Glucose Point of Care 142 mg/dl (65-105)
[2022-01-13] MEDS: DORNASE ALFA INH SOLN 1 MG/ML 2.5 ML AMP 2.5 MG INHALATION (19:37)
[2022-01-13] MEDS: ATORVASTATIN 40 MG TABLET PO (21:00)
[2022-01-13] MEDS: carvediloL 12.5 MG TABLET PO (21:00)
[2022-01-13] MEDS: ASPIRIN 81 MG ENTERIC TABLET PO (21:01)
[2022-01-13 22:25] LABS: Glucose Point of Care 201 mg/dl (65-105)
[2022-01-13] MEDS: ACETAMINOPHEN 500 MG TABLET 1000 MG PO (22:45)
[2022-01-14] VITALS (10 sets, daily range): BP systolic 113–114; BP diastolic 52–56; PULSE 63–82; RESP 16–18; TEMP 36.4–37; O2SAT 95–99
[2022-01-14] MEDS: IPRATROPIUM BR 0.02% INH SOLN 0.5 MG/2.5 ML VIAL INHALATION (04:41)
[2022-01-14] MEDS: ALBUTEROL SULFATE NEB 2.5 MG/3 ML INH INHALATION (04:41)
[2022-01-14 07:04] LABS: Vancomycin Random 21.1 ug/mL (10-20)
[2022-01-14 07:25] LABS: Glucose Point of Care 112 mg/dl (65-105)
[2022-01-14] MEDS: DORNASE ALFA INH SOLN 1 MG/ML 2.5 ML AMP 2.5 MG INHALATION (07:38)
[2022-01-14] MEDS: FLUTICASONE/UMECLIDIN/VILANTER 100-62.5-25 MCG ELLIPTA 1 PUFF INHALATION (07:39)
[2022-01-14] MEDS: GABAPENTIN 300 MG CAPSULE PO ×2 (08:06→16:56)
[2022-01-14] MEDS: FERROUS SULFATE 324 MG TABLET PO (08:06)
[2022-01-14] MEDS: SACCHAROMYCES BOULARDII 250 MG CAPSULE PO ×3 (08:06→16:56)
[2022-01-14] MEDS: FAMOTIDINE 20 MG TABLET PO ×2 (08:07→16:55)
[2022-01-14] MEDS: carvediloL 12.5 MG TABLET PO (08:07)
[2022-01-14] MEDS: FUROSEMIDE 20 MG TABLET PO (08:07)
[2022-01-14] MEDS: DONEPEZIL HCL 10 MG TABLET PO (08:07)
[2022-01-14] MEDS: OPTI-GEN TAB 1 TABLET PO (08:07)
--- NOTE | 2022-01-14 08:41 | PM.PNPUL ---
Progress Note: A&P Assessment and Plan (1) Pleural effusion, left: Code(s): J90 - Pleural effusion, not elsewhere classified Status: Acute Assessment and Plan: Chest x-ray on 12/26/2021 demonstrates left lower lobe consolidation with silhouetting of the left hemidiaphragm with no change compared to 12/08/2021. Chest x-ray on 12/08/2021 demonstrates consolidation of the left lower lobe with silhouetting of the left hemidiaphragm. CT scan of the abdomen on 12/06/2021 demonstrates a small left pleural effusion with adjacent compressive atelectasis. CT scan of the chest on 10/22/2021 showed patchy areas of ground-glass opacity centrilobular nodules with bibasilar atelectasis but no left pleural effusion or consolidation. the left pleural effusion developed after 10/22/2021 and had remained stable through 12/26/2021. Chest x-ray on 01/09/2022 shows left lower lobe consolidation similar to 12/26/2021. On 01/11 the patient had near complete opacification of his left hemithorax with only about 5% of the left upper lobe with air and shift to the mediastinum to the left. The right lung is clear. 01/12/2022 complete opacification of the left hemithorax. 01/13/2022 approximately 90% of the left hemithorax is opacified. I suspect this is a combination of mucus plugging with collapse and or left pleural effusion. he has no history of aspirating or choking on his food well in the hospital. Agree with left thoracentesis with an attempt to evacuate any fluid that is there. In the meantime will provide aggressive pulmonary toilet in case this is a mucus plug. I will place the patient on albuterol and ipratropium nebulizers q.4 hours, Pulmozyme 0.25 mg q.12 hours, chest physiotherapy, Acapella flutter device Q 4 hours while awake, out of bed to a chair, incentive spirometry. Left thoracentesis with 600 mL of ora colored fluid, pH 7.47, g stain with many white blood cells but no organisms seen. Cell differential neutrophils 13%, lymphocytes 85%, monocytes 2%. Post thoricentesis x-ray with expansion of the left hemithorax and no pleural effusion seen. Remainder of chemistries, microbiologic and cytology studies are pending. Patient had hemodialysis with 2.4 L removed. if the pleural effusion is a transudate recommend aggressive fluid removal with continued hemodialysis to prevent reaccumulation. 01/14 Patient states he slept well on room air current saturations 98%. States he is breathing back is normal with no cough and no phlegm production. Chest x-ray today shows left lower lobe infiltrate with no left pleural effusion. patient should have an outpatient chest x-ray in 2 weeks to document that the left pleural effusion has not reaccumulated. (2) Healthcare-associated pneumonia: Code(s): J18.9 - Pneumonia, unspecified organism Status: Acute Assessment and Plan: the patient is afebrile, has no white blood cell count, no sputum production and cultures remain negative. I think it is unlikely that the patient has pneumonia but at this time I will continue aztreonam, vancomycin and azithromycin pending thoracentesis to exclude empyema. 01/14 Patient is afebrile, no cough, no phlegm production. Today is day 5 vancomycin, aztreonam and azithromycin. I have ordered a CT scan of the chest to assess left lower lobe. If there are no concerning pathologic findings on the CT scan the patient is suitable for discharge from a pulmonary perspective on these pulmonary medications: cefdinir 300 mg p.o. b.i.d. x5 days breztri 160/9/4.5 At 2 puffs b.i.d. rescue albuterol 2 puffs q.4 hours p.r.n. shortness of breath or wheezing Chest x-ray in 2 weeks to assess left pleural effusion. Follow-up in Pulmonary Clinic in 3-4 weeks. Plan for outpatient PFTs. Will follow with you. (3) COPD (chronic obstructive pulmonary disease): Code(s): J44.9 - Chronic obstructive pulmonary disease, unspecified Status:
--- NOTE | 2022-01-14 10:18 | P.PNNP_ITS ---
Progress Note: A&P Assessment and Plan (1) End stage renal disease: Code(s): N18.6 - End stage renal disease Status: Chronic Assessment and Plan: * HD tomorrow * continue M/W/F schedule while hospitalized * follow electrolytes, volume status, and clearance (2) Acute hypoxemic respiratory failure: Code(s): J96.01 - Acute respiratory failure with hypoxia Status: Acute Assessment and Plan: * resolved/resolving * multifactorial: * pneumonia * mild volume overload * pleural effusion * underlying COPD * Pulmonary following with recommendations noted * s/p thoracentesis (on 01/13/22) * fluid removal with dialysis * antibiotics * nebulizer treatments (3) Hyperkalemia: Code(s): E87.5 - Hyperkalemia Status: Acute Assessment and Plan: * resolved * as noted by admission labs * interestingly, previously had issues with hypokalemia (from poor oral intake and diarrhea) * holding K+ supplements * s/p medical management * low K+/renal diet (4) Healthcare-associated pneumonia: Code(s): J18.9 - Pneumonia, unspecified organism Status: Acute Assessment and Plan: * suspected based on recent hospitalizations and admission imaging * on IV antibiotics * CT scan of chest further evaulation * follow culture data (5) Anemia: Code(s): D64.9 - Anemia, unspecified Status: Chronic Assessment and Plan: * due to ESRD and acute illness * Epogen with HD * follow trend of H/H (6) Type 2 diabetes mellitus with hyperglycemia, without long-term current use of insulin: Code(s): E11.65 - Type 2 diabetes mellitus with hyperglycemia Status: Acute Assessment and Plan: * follow accuchecks * on oral hypoglycemics and SSI * glycemic control Will continue to follow. Subjective Date/time seen: 01/14/22 10:18 Tolerated hemodialysis treatment and left thoracentesis yesterday without any issues or problems; breathing appears stable if not better at this time; no other acute issues/events overnight or earlier this morning; no apparen distress noted. Exam Narrative: General: chronically ill appearing male in NAD Heart: normal S1 and S2; no rub or gallop Lungs: clear anteriorly; coarse at bases Abdomen: soft, nontender, nondistended, positive bowel sounds Extremities: trace edema Skin: warm and intact Objective Data Vital Signs Vital Signs: Vital Signs Temp Pulse Resp BP Pulse Ox O2 Del Method 01/14/22 08:05 Room Air 01/14/22 09:12 Room Air 01/14/22 08:56 Room Air 01/14/22 08:07 64 01/14/22 07:50 63 18 01/14/22 07:41 95 Room Air 01/14/22 07:40 64 18 01/14/22 06:00 36.5 C 66 16 114/52 L 98 01/14/22 04:52 78 16 01/14/22 04:41 77 16 01/14/22 02:16 37.0 C 01/14/22 00:05 82 16 01/13/22 23:50 79 16 01/13/22 21:04 Room Air 01/13/22 22:45 37.6 C 01/13/22 22:00 37.6 C 84 14 113/55 L 95 01/13/22 21:00 84 01/13/22 19:50 77 16 01/13/22 19:37 74 16 01/13/22 14:00 36.7 C 49 L 18 111/54 L
--- NOTE | 2022-01-14 10:18 | PM.PNNEP ---
Progress Note: A&P Assessment and Plan (1) End stage renal disease: Code(s): N18.6 - End stage renal disease Status: Chronic Assessment and Plan: HD tomorrow continue M/W/F schedule while hospitalized follow electrolytes, volume status, and clearance (2) Acute hypoxemic respiratory failure: Code(s): J96.01 - Acute respiratory failure with hypoxia Status: Acute Assessment and Plan: resolved/resolving multifactorial: pneumonia mild volume overload pleural effusion underlying COPD Pulmonary following with recommendations noted s/p thoracentesis (on 01/13/22) fluid removal with dialysis antibiotics nebulizer treatments (3) Hyperkalemia: Code(s): E87.5 - Hyperkalemia Status: Acute Assessment and Plan: resolved as noted by admission labs interestingly, previously had issues with hypokalemia (from poor oral intake and diarrhea) holding K+ supplements s/p medical management low K+/renal diet (4) Healthcare-associated pneumonia: Code(s): J18.9 - Pneumonia, unspecified organism Status: Acute Assessment and Plan: suspected based on recent hospitalizations and admission imaging on IV antibiotics CT scan of chest further evaulation follow culture data (5) Anemia: Code(s): D64.9 - Anemia, unspecified Status: Chronic Assessment and Plan: due to ESRD and acute illness Epogen with HD follow trend of H/H (6) Type 2 diabetes mellitus with hyperglycemia, without long-term current use of insulin: Code(s): E11.65 - Type 2 diabetes mellitus with hyperglycemia Status: Acute Assessment and Plan: follow accuchecks on oral hypoglycemics and SSI glycemic control Will continue to follow. Subjective Date/time seen: 01/14/22 10:18 Tolerated hemodialysis treatment and left thoracentesis yesterday without any issues or problems; breathing appears stable if not better at this time; no other acute issues/events overnight or earlier this morning; no apparen distress noted. Exam Narrative: General: chronically ill appearing male in NAD Heart: normal S1 and S2; no rub or gallop Lungs: clear anteriorly; coarse at bases Abdomen: soft, nontender, nondistended, positive bowel sounds Extremities: trace edema Skin: warm and intact Objective Data Vital Signs Vital Signs: Vital Signs Temp Pulse Resp BP Pulse Ox O2 Del Method 01/14/22 08:05 Room Air 01/14/22 09:12 Room Air 01/14/22 08:56 Room Air 01/14/22 08:07 64 01/14/22 07:50 63 18 01/14/22 07:41 95 Room Air 01/14/22 07:40 64 18 01/14/22 06:00 36.5 C 66 16 114/52 L 98 01/14/22 04:52 78 16 01/14/22 04:41 77 16 01/14/22 02:16 37.0 C 01/14/22 00:05 82 16 01/13/22 23:50 79 16 01/13/22 21:04 Room Air 01/13/22 22:45 37.6 C 01/13/22 22:00 37.6 C 84 14 113/55 L 95 01/13/22 21:00 84 01/13/22 19:50 77 16 01/13/22 19:37 74 16 01/13/22 14:00 36.7 C 49 L 18 111/54 L 99 01/13/22 16:12 76 16 01/13/22 16:08 94 Room Air 01/13/22 16:04 74 16 01/13/22 15:31 80 15 129/57 L 98 01/13/22 15:29 79 16 136/53 L 100 01/13/22 13:40 36.6 C 72 16 128/60 01/13/22 13:30 71 139/63 01/13/22 13:00 74 137/69 01/13/22 12:30 68 125/61 01/13/22 12:00 66 119/53 L 01/13/22 11:30 68 136/55 L 01/13/22 11:00 65 117/59 L 01/13/22 10:30 66 111/60 Intake/Output Intake/Output: Intake & Output 01/11/22 01/12/22 01/13/22 01/14/22 23:59 23:59 23:59 23:59 Intake Total 2080 1480 650 940 Output Total 684 770 2306 Balance 1554 705 -3200 940 Meds/Results Medications: Active Medications Generic Name Dose Route Start Last Admin Trade Name Amelia PRN Reason Stop Dose Admin Albuterol 2.5 mg 01/12/22 11:19
[2022-01-14 11:49] LABS: Glucose Point of Care 229 mg/dl (65-105)
[2022-01-14] MEDS: INSULIN ASPART (*BKC) 100 UNITS/ML SUB-Q (11:52)
--- NOTE | 2022-01-14 12:02 | PM.DS ---
DS: Admitting Diagnosis Discharge Date 01/14/22 12:50 Admitting Diagnosis Acute respiratory failure with hypoxia Pneumonia COPD, chronic Acute hyperkalemia End stage renal disease, chronic DS: Discharge Diagnosis Discharge Diagnosis (1) Acute respiratory failure: Qualifiers: Respiratory failure complication: hypoxia Qualified Code(s): J96.01 - Acute respiratory failure with hypoxia Code(s): J96.00 - Acute respiratory failure, unspecified whether with hypoxia or hypercapnia Status: Acute Assessment and Plan: Secondary to pneumonia and left pleural effusion. Required supplemental O2 2L NC during hospitalization. Pulmonology consulted. Patient managed with thoracentesis and antibiotics. (2) Healthcare-associated pneumonia: Code(s): J18.9 - Pneumonia, unspecified organism Status: Acute Assessment and Plan: Patient presented with increased shortness of breath. Chest x-ray showed diffuse bilateral interstitial infiltrates on admission. Patient had recent hospitalization at this facility in December for Cdiff infection. Treated with IV vancomycin, aztreonam, and azithromycin due to penicillin allergy from 01/10 - 01/14/22. Legionella and pneumococcal antigens pending at discharge. Blood cultures negative x2. Covid and influenza A/B negative. Treated with short acting bronchodilators, chest physiotherapy, PEP and incentive spirometry. Transitioned to cefdinir 300 mg PO BID x 5 days at discharge. (3) Pleural effusion, left: Code(s): J90 - Pleural effusion, not elsewhere classified Status: Acute Assessment and Plan: CXR revealed near complete opacification of the left hemithorax consistent with large left effusion with underlying compressive atelectasis. 01/13 US-guided diagnostic thoracentesis -600 mL ora fluid removed. Pleural fluid analysis showed cloudy, brown fluid, pH 7.468, neut 13%, lymph 85%, monocytes 2%, gram stain without organism growth. aerobic and anaerobic cultures negative. Total protein, albumin, LDH, glucose, cholesterol, triglycerides, and amylase pending. Repeat chest X-ray without pneumothorax. (4) Acute hyperkalemia: Code(s): E87.5 - Hyperkalemia Status: Acute Assessment and Plan: Potassium 6.5 on arrival. Likely due to ESRD. Treated with Lokelma 10 mg PO, 5 units IV regular insulin, 1 amp D50, and 1 gram calcium gluconate in ED. Potassium supplement stopped and patient continued on hemodialysis MW. K 3.8 on discharge. (5) End stage renal disease: Code(s): N18.6 - End stage renal disease Status: Chronic Assessment and Plan: Maintained on hemodialysis Thursday, Thursday, Thursday. nephrology following for dialysis management during admission (6) COPD (chronic obstructive pulmonary disease): Qualifiers: COPD type: unspecified COPD Qualified Code(s): J44.9 - Chronic obstructive pulmonary disease, unspecified Code(s): J44.9 - Chronic obstructive pulmonary disease, unspecified Status: Chronic Assessment and Plan: chronic, not in acute exacerbation. Continued on Breztri and albuterol as needed Q4 hours (7) Type 2 diabetes mellitus with hyperglycemia, without long-term current use of insulin: Code(s): E11.65 - Type 2 diabetes mellitus with hyperglycemia Status: Chronic Assessment and Plan: Chronic, stable. A1c is 4.6. resumed on linagliptin and pioglitazone upon discharge. (8) History of Clostridioides difficile colitis: Code(s): Z86.19 - Personal history of other infectious and parasitic diseases Status: Resolved Assessment and Plan: recent admission 12/07-12/17/21 due to C diff infection. No diarrhea during hospitalization. On probiotics TID DS: Summary Hospital Course Reason for hospitalization: Shortness of breath Hospital Course: Miky Fuentes is a 81-year-old male long-term resident with end-st
[2022-01-14 12:25] LABS: EDCOVIDSCREEN Negative (Negative)
[2022-01-14 16:39] LABS: Glucose Point of Care 145 mg/dl (65-105)
[2022-01-15 22:08] LABS: LDH Pleural Fluid 85 U/L; Total Protein Pleural Fluid <3.0 g/dL
[2022-01-15 22:08] LABS: Glucose Pleural Fluid 93 mg/dL
[2022-01-16 20:04] LABS: Legionella pneumophila Ag Ur Not Detected (Not Detected)
[2022-01-17 11:06] LABS: Amylase, Pleural Fluid 11 U/L
[2022-01-18 02:39] LABS: Pneumococcal Antigen Urine Not Detected (Not Detected)
[2022-01-18 21:19] LABS: Albumin Pleural Fluid 1.1 g/dL
== END 2022-01-14 17:20 | DRG 186 ==
LOC: ANHED 23:03 → ANH2MED 01-10 00:43 → ANHIMU 01-10 00:43 → ANH3MEDSUR 01-10 16:30
PROVIDERS: Internal Medicine; Internal Medicine Nephrology; Nurse Practitioner Adult Health; Physician Assistant; Admitting Provider Internal Medicine; Emergency Provider Emergency Medicine; PCP Family Medicine; Visit Provider Nurse Practitioner Family
DX: J90 Pleural effusion, not elsewhere classified (principal); J18.9 Pneumonia, unspecified organism; J96.01 Acute respiratory failure with hypoxia; N18.6 End stage renal disease; J44.0 Chronic obstructive pulmonary disease with (acute) lower respiratory infection; I12.0 Hypertensive chronic kidney disease with stage 5 chronic kidney disease or end stage renal disease; J98.11 Atelectasis; E87.5 Hyperkalemia; E11.22 Type 2 diabetes mellitus with diabetic chronic kidney disease; E11.65 Type 2 diabetes mellitus with hyperglycemia; Y95 Nosocomial condition; I25.10 Atherosclerotic heart disease of native coronary artery without angina pectoris; F03.90 Unspecified dementia, unspecified severity, without behavioral disturbance, psychotic disturbance, mood disturbance, and anxiety; D63.1 Anemia in chronic kidney disease; F17.210 Nicotine dependence, cigarettes, uncomplicated; E11.42 Type 2 diabetes mellitus with diabetic polyneuropathy; K21.9 Gastro-esophageal reflux disease without esophagitis; E78.5 Hyperlipidemia, unspecified; Z20.822 Contact with and (suspected) exposure to COVID-19; T17.990A Other foreign object in respiratory tract, part unspecified in causing asphyxiation, initial encounter; Z99.2 Dependence on renal dialysis; Z86.19 Personal history of other infectious and parasitic diseases; Z86.16 Personal history of COVID-19; Z86.718 Personal history of other venous thrombosis and embolism; Z95.1 Presence of aortocoronary bypass graft; Z79.84 Long term (current) use of oral hypoglycemic drugs; Z79.82 Long term (current) use of aspirin; Z23 Encounter for immunization
CPT/HCPCS: 32555; 36415; 71045; 71046; 71250; 80048; 80053; 80069; 80202; 82040; 82042; 82150; 82565; 82945; 82948; 83036; 83615; 83880; 83986; 84132; 84155; 84157; 84311; 84478; 85025; 85027; 85055; 85610; 85730; 86706; 87015; 87040; 87070; 87075; 87102; 87116; 87205; 87206; 87340; 87426; 87449; 87502; 87899; 88108; 88184; 88305; 89051; 90471; 90686; 93005; 94640; 96365; 96366; 96367; 96374; 96375; 97161; 97165; 99285; A9270; C9803; G0008; G0257; G0378; J0456; J0610; J1815; J3370; J7030; Q5105; U0003; U0005

== ENCOUNTER 2022-01-30 07:10 | Inpatient (IN) | payer MEDICARE, MEDICAID, SELFPAY ==
[2022-01-30] VITALS (33 sets, daily range): BP systolic 64–115; BP diastolic 24–82; PULSE 83–112; RESP 12–32; TEMP 36.8–39.3; O2SAT 92–100; BMI 23.8
--- NOTE | ~2022-01-30 | XR_ITS ---
XR abdomen/kub 1V 02/01/2022 09:52 Indication: Abdomen pain Procedure: KUB Comparison: 10/09/2021 and 10/07/2021 Findings: There are dilated small bowel loops. The colon is relatively decompressed although there is small amount of gas in the rectum. No abnormal calcifications. Impression: 1: Dilated small bowel, suspicious for obstruction. Reviewed, dictated and finalized at location A. Impression: 1: Dilated small bowel, suspicious for obstruction.
--- NOTE | ~2022-01-30 | CT_ITS ---
EXAMINATION: CT chest abdomen pelvis wo con DATE: 01/30/2022 15:43 INDICATION: Sepsis TECHNIQUE: Computed tomography (CT) of the chest, abdomen, and pelvis was performed without intraveno us contrast. The dose-length product (DLP) was 901.35 mGy-cm. Automated exposure control and iterativ e reconstruction technique were employed. COMPARISON: 01/14/2022, 10/22/2021 FINDINGS: CHEST: Evaluation of the lungs is limited by respiratory motion. Cardiomegaly is noted. There are dif fuse smooth interlobular septal thickening. There is a small left pleural effusion. No pneumothorax i s identified. There are airspace opacities of the left lower lobe. There is a small sliding hiatal he rnia. There is severe thoracic spondylosis. ABDOMEN AND PELVIS: There is a small volume of abdominal and pelvic ascites. The liver, spleen, pancr eas, and left adrenal gland are normal. There is a 10 mm adenoma of the right adrenal gland. The gall bladder is distended which may be due to fasting state. There is calcified atherosclerosis of the aor ta and many of the other arteries. There is a 3.2 cm fusiform aneurysm of the infrarenal abdominal ao rta. There are marked, diffuse circumferential wall thickening of the entire colon. No pathologically enlarged abdominal or pelvic lymph nodes are identified. There is no free intraperitoneal gas or bossman dence of bowel obstruction. There is severe lumbar spondylosis. IMPRESSION: 1. Severe pancolitis. 2. Cardiomegaly with mild pulmonary edema. 3. Small left pleural effusion with left lower lobe atelectasis and/or pneumonia. Reviewed, dictated and finalized at location A. IMPRESSION: 1. Severe pancolitis. 2. Cardiomegaly with mild pulmonary edema. 3. Small left pleural effusion with left lower lobe atelectasis and/or pneumoni a.
--- NOTE | ~2022-01-30 | XR_ITS ---
EXAMINATION: XR chest 1V DATE: 01/30/2022 08:13 INDICATION: Cough, fever and hypotension TECHNIQUE: frontal view of the chest was obtained. COMPARISON: Chest radiograph and CT dated 01/14/2022 FINDINGS: Opacities in the left lower lung zone with blunting of the costophrenic angle consistent with small l eft pleural effusion and associated basilar atelectasis and/or pneumonia. Calcified nodule at the rig ht posterior sulcus consistent with old granulomatous disease. Right lung is otherwise clear. No pneu mothorax or right-sided pleural effusion. Cardiomegaly. Median sternotomy wires and mediastinal surgi cisco clips are seen, likely from prior coronary artery bypass grafting. Colonic interposition below th e right hemidiaphragm. Postoperative changes about the left elbow. Large-bore dual-lumen right internet retailer al jugular central venous likely dialysis catheter with distal tip near the superior cavoatrial junct ion. IMPRESSION: 1. Small left pleural effusion with left basilar atelectasis and/or pneumonia. 2. Cardiomegaly. Reviewed, dictated and finalized at location A.
--- NOTE | ~2022-01-30 | CT_ITS ---
EXAMINATION: CT abdomen pelvis wo con DATE: 02/01/2022 10:44 INDICATION: Abdomen pain TECHNIQUE: Computed tomography (CT) of the abdomen and pelvis was performed without intravenous contr ast. The dose-length product was 644.57 mGy-cm. Automated exposure control and iterative reconstructi on technique were employed. COMPARISON: CT dated 01/30/2022 FINDINGS: Enlarging bilateral pleural effusions. Cardiomegaly. There is atherosclerosis of the aorta and, coronary arteries. There is an infrarenal abdominal aortic aneurysm measuring 3.2 cm. There are median sternotomy wires. There is dependent atelectasis. There is a small amount of ascites. There is diffuse abnormal thickening of the colon, consistent wit h pancolitis. There is renal atrophy on the left. No free air is identified. There is a rectal cathet er. The liver, spleen, pancreas, left adrenal gland are unremarkable. There is a 10 mm right adrenal alcira alexandra. There are small intermediate density left renal mass measuring 31 Hounsfield units and 1 cm driscoll sversely. Severe lumbar spondylosis. IMPRESSION: 1. Worsening pancolitis, most likely infectious. Consider C. Difficile infection. 2: Enlarging bilateral pleural effusions with underlying compressive atelectasis. 3: Ascites. 4: Intermediate density 1 cm left renal mass laterally. Recommend correlation with ultrasound. 5: Ascites. Reviewed, dictated and finalized at location A. IMPRESSION: 1. Worsening pancolitis, most likely infectious. Consider C. Difficile infectio n. 2: Enlarging bilateral pleural effusions with underlying compressive atelectas is. 3: Ascites. 4: Intermediate density 1 cm left renal mass laterally. Recommend correlation with ultrasound. 5: Ascites.
--- NOTE | ~2022-01-30 | XR_ITS ---
XR chest 1V portable 02/01/2022 09:52 Indication: Shortness of breath Procedure: AP portable chest Comparison: Comparison to multiple prior studies sequentially, with oldest reviewed study dated 01/04. Findings: Status post median sternotomy for CABG. Cardiomegaly. There is pulmonary edema. Small left pleural effusion. No pneumothorax. Large bore right IJ central venous catheter tips near the cavoatri al junction. Impression: 1: Cardiomegaly with interstitial edema. 2: Small left pleural effusion. Reviewed, dictated and finalized at location A. Impression: 1: Cardiomegaly with interstitial edema. 2: Small left pleural effusion.
--- NOTE | ~2022-01-30 | XR_ITS ---
XR chest 1V portable 01/30/2022 19:11 Indication: Tachypnea. Pneumonia. Procedure: AP portable chest Comparison: Comparison to multiple prior studies sequentially, with oldest reviewed study dated 12/2021. Findings: There is improving left-sided pneumonia with residual infiltrates in the left lung base. St atus post median sternotomy for CABG. Large bore central venous catheter tip near the cavoatrial junc tion. Right lung clear. Impression: 1: Improving left-sided pneumonia with residual infiltrates in the left lung base. Reviewed, dictated and finalized at location B. Impression: 1: Improving left-sided pneumonia with residual infiltrates in the left lung ba se.
--- NOTE | 2022-01-30 07:18 | ECG_ITS ---
Measurements Intervals [place] Rate: 101 P: -20 CO: 143 QRS: -33 QRSD: 110 T: 152 QT: 335 QTc: 436 Interpretive Statements SINUS TACHYCARDIA WITH OCCASIONAL SUPRAVENTRICULAR PREMATURE COMPLEXES MISSING LEAD II COMPARED TO ECG 01/10/2022 00:06:57 SINUS TACHYCARDIA NOW PRESENT MISSING LEAD Electronically Signed On 01-30-2022 14:27:17 CDT by Marie Solis M.D.
--- NOTE | 2022-01-30 07:45 | ED.FEVER ---
HPI - Fever General Chief Complaint: Fever Stated Complaint: fever Time Seen by Provider: 01/30/22 07:44 Source: patient and EMS Mode of arrival: EMS History of Present Illness HPI Narrative: Patient is 81 years old white male came to ED by ambulance from the [place] that dialysis for evaluation of fever, cough and low blood pressure noted today prior to treatment. Patient answer to any question that he does not know. He is awake, alert and oriented x3. Currently he denying any pain, fever, chills, nausea, vomiting just right upper extremity pain for long time Related Data Home Medications Medication Instructions Recorded Confirmed donepezil 10 mg tablet 10 mg PO DAILY 10/11/19 01/10/22 ezetimibe 10 mg tablet 5 mg PO DAILY 10/11/19 01/10/22 famotidine 20 mg tablet 20 mg PO BID 10/11/19 01/10/22 gabapentin 300 mg capsule 300 mg PO BID 10/11/19 01/10/22 pioglitazone 30 mg tablet 30 mg PO DAILY 10/11/19 01/10/22 aspirin 81 mg tablet 81 mg PO HS 07/28/21 01/10/22 budesonide 160 mcg-glycopyr 9 2 inh inhalation BID 07/28/21 01/10/22 mcg-formot 4.8 mcg/actuation HFA inhaler (Breztri Aerosphere) ferrous sulfate 325 mg (65 mg 1 tablet PO DAILY 09/15/21 01/10/22 iron) tablet Lactobacillus acidophilus 10 mg PO BID 12/07/21 01/10/22 atorvastatin 40 mg tablet 40 mg PO HS 12/07/21 01/10/22 collagen (bovine) 12 bandage 1 applic topical DAILY 12/07/21 01/10/22 vitamin B complex-vitamin C-folic 1 tablet PO DAILY 12/07/21 01/10/22 acid 0.8 mg tablet ([place]yenne-Beatriz) bisacodyl 10 mg rectal suppository 10 mg RECTAL DAILY PRN Constipation 01/10/22 01/10/22 linagliptin 5 mg tablet 5 mg PO QAM 01/10/22 01/10/22 magnesium citrate 296 ml PO DAILY PRN Constipation 01/10/22 01/10/22 magnesium hydroxide 400 mg/5 mL 400 mg PO DAILY PRN Constipation 01/10/22 01/10/22 oral suspension (Milk of Magnesia) sodium phosphates 19 gram-7 118 ml RECTAL ONCE 01/10/22 01/10/22 gram/118 mL enema (Fleet Enema) Allergies Allergy/AdvReac Type Severity Reaction Status Date / Time morphine Allergy Intermediate Itching Verified 01/30/22 07:31 Penicillins Allergy Mild Unknown Verified 01/30/22 07:31 Review of Systems Review of Systems: All systems reviewed & are unremarkable except as noted in HPI and below PMFSH Past Medical History Medical History COPD (chronic obstructive pulmonary disease) Coronary artery disease Dementia Diabetes type 2, controlled Diabetic peripheral neuropathy Dysphagia With history absent gag reflex with failed modified barium swallow October 2018. Patient refused G-tube at the time. GERD (gastroesophageal reflux disease) History of left heart catheterization Hyperlipidemia Hypertension Hyponatremia 132-136 Normal echocardiogram October 2018 and October 2021 Orthostatic hypotension Respiratory failure requiring intubation Due to COVID pneumonia renal failure and C diff colitis extubated 10/11/2021 Right leg DVT Stage 3b chronic kidney disease Secondary to diabetes, hypertension, vascular disease and age Surgical History Surgical History H/O inguinal hernia repair Hx of CABG 3 vessel, 2000 S/P dialysis catheter insertion (10/09/21) Family History Family History Mother Breast cancer COPD (chronic obstructive pulmonary disease) Hypertension Sibling Malignant neoplasm of prostate COPD (chronic obstructive pulmonary disease) Sister Hypertension Acute myocardial infarction Brother Lung cancer Sister Social History Social History Social History: He has a greater than 100 pack per year smoking history. He smoked 3 packs of cigarettes per day from the time he was 13 until is CABG in 2002. He is down to smoking a few cigarettes cigarettes a week. He has live with the same woman for approximately 30
[2022-01-30 07:59] LABS: Hematocrit 34.5 % (42.0-52.0); Mean Corpuscular HGB Conc 31.9 g/dl (32-36); Mean Corpuscular Hemoglobin 32.2 pg (26-34); Mean Corpuscular Volume 100.9 fl (80-100); Mean Platelet Volume 9.5 fl (7.4-10.4); Platelet Count Result 417 k/mm3 (150-375); Red Blood Count 3.42 M/mm3 (4.6-6.20); Red Cell Distribution Width 15.9 % (11.5-14.5); White Blood Count 33.8 K/mm3 (4.5-10.0)
[2022-01-30 08:06] LABS: Alanine Aminotransferase 17 U/L (6-50); Albumin Level 3.3 g/dL (3.5-5.1); Alkaline Phosphatase 99 U/L (38-126); Anion Gap 19 mmol/L (8-16); Aspartate Amino Transferase 21 U/L (17-59); Bilirubin,Total 0.8 mg/dL (0.2-1.3); Blood Urea Nitrogen 35 mg/dL (9-20); Calcium 8.5 mg/dL (8.4-10.2); Carbon Dioxide 21 mmol/L (22-30); Chloride 94 mmol/L (98-107); Estimated CRCL calculation 9 ml/min; Estimated Glomerular Filt Rate 10; Glucose 218 mg/dL (65-110); Potassium 2.9 mmol/L (3.4-5.0); Sodium 134 mmol/L (137-145)
--- NOTE | 2022-01-30 08:09 | PC.NURSE ---
Pt to radiology.
[2022-01-30 08:11] LABS: CRP 8.3 mg/dL (<1.0)
[2022-01-30 08:14] LABS: INR 1.1
[2022-01-30 08:14] LABS: Lactic Acid Reflex 2.6 mmol/L (0.7-2.0)
[2022-01-30 08:15] LABS: Partial Thromboplastin Time 29.3 SECONDS (22.3-36.8)
[2022-01-30] MEDS: ACETAMINOPHEN 325 MG TABLET 650 MG PO (08:19)
[2022-01-30] MEDS: SODIUM CHLORIDE 0.9% IV 1,000 ML 100 ML IV CONT (08:19)
--- NOTE | 2022-01-30 08:21 | PC.NURSE ---
Pt reports he produces very little urine. Bladder can only showing 23ml at this time.
--- NOTE | 2022-01-30 08:25 | PC.NURSE ---
Hold UA and straight cath at this time per Dr. Gupta verbal orders.
[2022-01-30 08:41] LABS: Band Neutrophils Percent 2 % (0-6); Lymphocytes Absolute Manual 3.38 K/mm3 (1.1-4.5); Monocytes Absolute Manual 1.35 K/mm3 (0.1-0.90); Monocytes Percent Manual 4 % (3-9); Neutrophils Absolute Manual 29.06 K/mm3 (1.3-6.7); Neutrophils Percent Manual 84 % (46-73); Platelet Estimate Adequate (Adequate); Total Cells Counted 100
[2022-01-30 08:42] LABS: Atypical Lymphocytes Present; Schistocytes None Seen (NORMAL)
[2022-01-30 08:45] LABS: Influenza A QL RT-PCR Negative (Negative); Influenza B QL RT-PCR Negative (Negative); SARS-CoV-2 RNA PCR Negative
[2022-01-30] MEDS: IPRATROPIUM BR 0.02% INH SOLN 0.5 MG/2.5 ML VIAL INHALATION ×2 (09:17→21:20)
[2022-01-30] MEDS: ALBUTEROL SULFATE NEB 2.5 MG/3 ML INH 5 MG INHALATION ×5 (09:17→21:20)
[2022-01-30] MEDS: POTASSIUM CHLORIDE 20 MEQ PACKET (FOR LIQUID) 40 MEQ PO ×2 (09:29→20:35)
--- NOTE | 2022-01-30 09:29 | PHAR ---
[facility] RENALLY DOSING AZTREONAM - 1 GM INITIAL DOSE THEN 250 MG Q8HR
--- NOTE | 2022-01-30 10:33 | PM.CNNEP ---
Assessment and Plan Assessment and plan (1) Renal insufficiency: Code(s): N28.9 - Disorder of kidney and ureter, unspecified Status: Acute Assessment and Plan: the patient has renal failure. He is in transition from acute kidney injury to end-stage renal disease, I am not sure where he is on paper. He has been on dialysis since he had the COVID a few months ago. He does fairly well in dialysis generally. He comes in with a little bit of fluid on an it comes off fairly easily. He still makes a little bit of urine. Unfortunately today he is sick. He has a temperature of 102?. He is 4L below his dry weight. He is probably dehydrated. In spite of this is blood pressure seems to be fairly stable. He is getting some IV fluids. Will do his dialysis today. I will not take any fluid off. I will do him on a 4K bath because his potassium is low. (2) Sepsis: Code(s): A41.9 - Sepsis, unspecified organism Status: Acute Assessment and Plan: The patient has sepsis syndrome. He got some blood cultures done. He is on aztreonam Levaquin and vancomycin per pharmacy protocol. Etiology is unclear. Possibly lungs, possibly catheter ,Decubitus ulcer (3) Hypokalemia: Code(s): E87.6 - Hypokalemia Status: Acute Assessment and Plan: his potassium is low. He has probably not been eating. He has been having diarrhea intermittently as well which could probably contribute as well (4) Pneumonia: Code(s): J18.9 - Pneumonia, unspecified organism Status: Acute Assessment and Plan: the patient has a small left pleural effusion with left basilar atelectasis or pneumonia on his chest x-ray. Possibly this is pneumonia. He does have some coarseness on exam as well. He failed a swallowing study before and this could be contributing to his pneumonia as well. Usually, however, aspiration goes to the right lung rather than the left lung but perhaps if he aspirated while he was lying on his left side at went to the left. Notably he has had left basilar process is going on for a while. He had a x-ray on the which also showed airspace opacities as that of phone brace. (5) COPD (chronic obstructive pulmonary disease): Qualifiers: COPD type: unspecified COPD Qualified Code(s): J44.9 - Chronic obstructive pulmonary disease, unspecified Code(s): J44.9 - Chronic obstructive pulmonary disease, unspecified Status: Chronic Assessment and Plan: The patient does not smoke anymore (6) GERD (gastroesophageal reflux disease): Code(s): K21.9 - Gastro-esophageal reflux disease without esophagitis Status: Acute (7) Type 2 diabetes mellitus with hyperglycemia, without long-term current use of insulin: Code(s): E11.65 - Type 2 diabetes mellitus with hyperglycemia Status: Chronic Assessment and Plan: on Accu-Cheks and sliding-scale insulin per hospitalist. (8) Erythropoietin deficiency anemia: Code(s): D63.1 - Anemia in chronic kidney disease Status: Acute Assessment and Plan: Hemoglobin is above 11 so we do not need EPO today. After hydration this might come down. (9) LORI (renal osteodystrophy): Code(s): N25.0 - Renal osteodystrophy Status: Acute Assessment and Plan: Will check a phosphorus level in the morning History of Present Illness Reason for Consult Consult date: 01/30/22 Chief Complaint Chief complaint: pneumonia,hypokalemia,dialysis patient,sepsis History of Present Illness Narrative: Miky is a very pleasant 81-year-old gentleman who has multiple medical problems including stage IIIB chronic kidney disease, acute kidney injury on dialysis, diabetes, hypertension, history of respiratory failure from COVID, right leg DVT, dysphagia but patient refuses a G-tube, GERD, hyperlipidemia, dementia, coronary disease, COPD. The patient has been getting dialysis 3 t
[2022-01-30 11:00] LABS: Reflex Lactic Acid Yes or No Add Lactic
[2022-01-30 11:40] LABS: Lactic Acid 1.9 mmol/L (0.7-2.0)
[2022-01-30] MEDS: SODIUM CHLORIDE 0.9% IV 500 ML IV CONT ×2 (11:45→18:14)
--- NOTE | 2022-01-30 14:14 | PM.IMHP ---
H&P: HPI History of Present Illness Date/Time: 01/30/22 14:14 Chief Complaint: Fever Narrative: This is a 81-year-old male patient who has end-stage renal disease and has dialysis on Thursday however the patient stated that he did not have dialysis yesterday went to dialysis today. Patient goes to [facility] dialysis. The patient stated that he had at least 14 loose stools yesterday and that is why he missed dialysis. He is also having some abdominal tenderness. The patient was sent here today from dialysis for a fever cough and low blood pressure. Patient is slow to answer questions and is having chills. His white count is 33.8. H&H is 11.0 in 34.5. MCV is 100.9. Platelet count 417. BUN is 35 creatinine 5.7. Potassium was 2.9 and sodium 134. Glucose 218. Lactic was 2.6 and is now 1.9. Dr. Mitchell has been consulted. Albumin 3.3 influenza A/B and COVID are negative. Chest x-ray shows small left pleural effusion with left basilar atelectasis and/or pneumonia. Cardiomegaly. The patient was given Tylenol, potassium, albuterol, Atrovent, Levaquin, aztreonam, vancomycin and a L of fluid + two 500 cc boluses of normal saline per Dr. Mitchell for hypotension. The patient is being admitted to inpatient status on the date of service of 01/30/2022. Review of Systems Review of Systems: See HPI All systems reviewed & are unremarkable except as noted in HPI and below Constitutional: Constitutional: Reports as per HPI and Reports no additional constitutional complaints Comments: Fever chills Eyes: Eyes: Reports as per HPI and Reports no additional eye complaints ENT: Reports system reviewed and no additional complaints, except as documented and Reports Normal hearing present Cardiovascular: Cardiovascular: Reports no additional cardiovascular complaints Respiratory: Respiratory: Reports no additional respiratory complaints and Reports no additional respiratory complaints Gastrointestinal: Gastrointestinal: Reports as per HPI and Reports no additional gastrointestinal complaints Comments: Abdominal pain Musculoskeletal: Musculoskeletal: Reports no additional musculoskeletal complaints Integumentary/Breasts: Skin/Breast: Reports system reviewed and no additional complaints, except as docu and Reports as per HPI Neurologic: Reports system reviewed and no additional complaints, except as documented, Reports as per HPI and Reports Normal hearing present Psychiatric: Psychiatric: Reports no additional psychiatric complaints and Reports as per HPI Endocrine: Endocrine: Reports no additional endocrine complaints Hematologic/Lymphatic: Hematologic/Lymphatic: Reports no additional hematologic/lymphatic complaints Allergic/Immunologic: Allergic/Immunologic: Reports no additional allergic/immunologic complaints [facility] Past Medical History Medical History (Updated 01/30/22 @ 14:37 by Roma Olivares NP) Acute hypoxemic respiratory failure Phsko-gc-sflrvye kidney injury ROEL (acute kidney injury) Anemia COPD (chronic obstructive pulmonary disease) Coronary artery disease COVID-19 Dementia Diabetes type 2, controlled Diabetic peripheral neuropathy Dysphagia With history absent gag reflex with failed modified barium swallow October 2018. Patient refused G-tube at the time. Elevated troponin Erythropoietin deficiency anemia GERD (gastroesophageal reflux disease) Healthcare-associated pneumonia Hematoma of neck History of Clostridioides difficile colitis History of left heart catheterization Hyperkalemia Hyperlipidemia Hypertension Hypokalemia Hypokalemia Hyponatremia 132-136 Normal echocardiogram October 2018 and October 2021 Orthostatic hypotension Renal insufficiency Respiratory failure requiring intubation Due to COVID pneumonia renal failure and C diff colitis extubated 10/11/2021 Right leg DVT LORI (renal osteodystrophy) Stage 3b chronic kidney disease Secondary to diabetes, hypertension, vascular disease and age
[2022-01-30] MEDS: AZTREONAM 1 GM in DEXTROSE 5% IN WATER 50 ML 100 ML IVPB (14:19)
[2022-01-30 15:26] LABS: Anion Gap 16 mmol/L (8-16); Blood Urea Nitrogen 38 mg/dL (9-20); Calcium 7.6 mg/dL (8.4-10.2); Carbon Dioxide 19 mmol/L (22-30); Chloride 98 mmol/L (98-107); Estimated CRCL calculation 10 ml/min; Estimated Glomerular Filt Rate 10; Glucose 165 mg/dL (65-110); Potassium 2.9 mmol/L (3.4-5.0); Sodium 133 mmol/L (137-145)
[2022-01-30 15:27] LABS: Magnesium 1.6 mg/dL (1.6-2.3)
[2022-01-30] MEDS: VANCOMYCIN ORAL 500 MG/10 ML SYRUP PO ×2 (16:37→23:55)
[2022-01-30] MEDS: GABAPENTIN 300 MG CAPSULE PO (16:37)
[2022-01-30] MEDS: MIDODRINE HCL 10 MG TABLET PO (16:38)
[2022-01-30] MEDS: FAMOTIDINE 20 MG TABLET 40 MG PO (16:39)
[2022-01-30] MEDS: ACIDOPHILUS/BULGARICUS CHEWABLE TABLET 1 TABLET PO (16:39)
[2022-01-30 17:00] LABS: Glucose Point of Care 197 mg/dl (65-105)
[2022-01-30 17:17] LABS: Hemoglobin A1C 5.2 % (<5.7)
[2022-01-30] MEDS: metroNIDAZOLE 500 MG/ISO 100ML 500 MG/100 ML BAG 100 MG IVPB ×2 (18:47→22:50)
[2022-01-30 19:01] LABS: Alveolar/Arterial O2 Gradient 51.3 mmHg; Base Excess ABG -3.1 mEq/l (+/-2.0); Fractional Inspired Oxygen 21 %; HCO3 ABG 20.4 mEq/l (22.0-26.0); Oxygen Content ABG 13.3 %vol (16.0-22.0); Oxygen Saturation ABG 92.3 % (95.0-100.0); PCO2 ABG 31.5 mmHg (35.0-45.0); PO2 ABG 60.7 mmHg (80.0-100.0); PO2 FiO2 Ratio Arterial Blood 2.89 %; Total Hemoglobin 10.5 g/dL (12.0-18.0)
[2022-01-30 19:02] LABS: Site Drawn LEFT BRACHIAL
[2022-01-30] MEDS: FIDAXOMICIN 200 MG TABLET PO (20:21)
[2022-01-30 21:38] LABS: Anion Gap 13 mmol/L (8-16); Blood Urea Nitrogen 41 mg/dL (9-20); Calcium 7.4 mg/dL (8.4-10.2); Carbon Dioxide 18 mmol/L (22-30); Chloride 99 mmol/L (98-107); Estimated CRCL calculation 9 ml/min; Estimated Glomerular Filt Rate 10; Glucose 173 mg/dL (65-110); Potassium 2.8 mmol/L (3.4-5.0); Sodium 130 mmol/L (137-145)
[2022-01-30 22:20] LABS: Glucose Point of Care 173 mg/dl (65-105)
[2022-01-30 23:02] LABS: IFOB Positive Control Positive; Immunochemical Fecal Occult Bl Positive (N)
[2022-01-30] MEDS: MAGNESIUM SULF 2 GM/WATER 50ML 2 GM/50 ML BAG IVPB (23:18)
[2022-01-31] VITALS (27 sets, daily range): BP systolic 80–137; BP diastolic 34–93; PULSE 73–109; RESP 12–24; TEMP 36.1–37.9; O2SAT 92–99; BMI 23.8
[2022-01-31 00:08] LABS: Toxigenic C. Diff POSITIVE (NEGATIVE)
[2022-01-31] MEDS: POTASSIUM CHLORIDE INJ 40 MEQ in SODIUM CHLORIDE 0.9% IV 500 ML 130 MEQ IVPB (00:45)
[2022-01-31] MEDS: ALBUTEROL SULFATE NEB 2.5 MG/3 ML INH 5 MG INHALATION ×3 (02:41→13:14)
[2022-01-31] MEDS: IPRATROPIUM BR 0.02% INH SOLN 0.5 MG/2.5 ML VIAL INHALATION ×3 (02:41→13:14)
[2022-01-31] MEDS: VANCOMYCIN ORAL 500 MG/10 ML SYRUP PO ×3 (05:31→16:46)
[2022-01-31 07:29] LABS: Hematocrit 35.1 % (42.0-52.0); Mean Corpuscular HGB Conc 31.3 g/dl (32-36); Mean Corpuscular Hemoglobin 31.8 pg (26-34); Mean Corpuscular Volume 101.4 fl (80-100); Mean Platelet Volume 9.5 fl (7.4-10.4); Platelet Count Result 384 k/mm3 (150-375); Red Blood Count 3.46 M/mm3 (4.6-6.20); White Blood Count 45.5 K/mm3 (4.5-10.0)
[2022-01-31 07:36] LABS: Albumin Level 2.2 g/dL (3.5-5.1); Anion Gap 17 mmol/L (8-16); Blood Urea Nitrogen 46 mg/dL (9-20); Calcium 7.5 mg/dL (8.4-10.2); Carbon Dioxide 18 mmol/L (22-30); Chloride 98 mmol/L (98-107); Estimated CRCL calculation 9 ml/min; Estimated Glomerular Filt Rate 9; Glucose 219 mg/dL (65-110); Lactic Acid Reflex 2.2 mmol/L (0.7-2.0); Magnesium 2.2 mg/dL (1.6-2.3); Phosphorus 6.6 mg/dL (2.5-4.5); Potassium 3.3 mmol/L (3.4-5.0); Sodium 133 mmol/L (137-145)
[2022-01-31 08:06] LABS: Glucose Point of Care 283 mg/dl (65-105)
[2022-01-31] MEDS: ACIDOPHILUS/BULGARICUS CHEWABLE TABLET 1 TABLET PO ×2 (08:58→16:44)
[2022-01-31] MEDS: VITAMIN B CMPLX/VIT C/FOLIC AC 1 CAPSULE 1 CAP PO (08:58)
[2022-01-31] MEDS: GABAPENTIN 300 MG CAPSULE PO ×2 (08:58→16:44)
[2022-01-31] MEDS: FAMOTIDINE 20 MG TABLET 40 MG PO (08:58)
[2022-01-31] MEDS: FERROUS SULFATE 324 MG TABLET PO (08:58)
[2022-01-31] MEDS: FIDAXOMICIN 200 MG TABLET PO (08:58)
[2022-01-31] MEDS: DONEPEZIL HCL 10 MG TABLET PO (08:58)
[2022-01-31] MEDS: INSULIN ASPART (*BKC) 100 UNITS/ML SUB-Q (09:01)
[2022-01-31] MEDS: MIDODRINE HCL 10 MG TABLET PO (09:23)
[2022-01-31 09:29] LABS: Band Neutrophils Percent 20 % (0-6); Lymphocytes Absolute Manual 1.36 K/mm3 (1.1-4.5); Monocytes Absolute Manual 1.36 K/mm3 (0.1-0.90); Monocytes Percent Manual 3 % (3-9); Neutrophils Absolute Manual 42.77 K/mm3 (1.3-6.7); Neutrophils Percent Manual 74 % (46-73); Platelet Estimate Decreased (Adequate); Total Cells Counted 100
[2022-01-31 09:30] LABS: Crenated RBC 2+ (NORMAL)
[2022-01-31 09:31] LABS: Anisocytosis 2+ (NORMAL); Ovalocytes 1+ (NORMAL); Schistocytes 1+ (NORMAL); Tear Drop Cells 2+ (NORMAL)
[2022-01-31 10:22] LABS: Reflex Lactic Acid Yes or No Add Lactic
--- NOTE | 2022-01-31 10:52 | PM.PNNEP ---
Progress Note: A&P Assessment and Plan (1) Renal insufficiency: Code(s): N28.9 - Disorder of kidney and ureter, unspecified Status: Acute Assessment and Plan: the patient has renal failure. He is in transition from acute kidney injury to end-stage renal disease, I am not sure where he is on paper. He has been on dialysis since he had the COVID a few months ago. yesterday were going to do dialysis but his blood pressure was too low. He received a 500cc saline bolus and the blood pressure was still in the 90s so I ordered another 500cc of saline. Then ordered a 100cc per hour of saline. The nurse put the order in but ordered only 1L so he is not getting saline right now. The patient is not dizzy or lightheaded. At this point will do dialysis. I asked the dialysis nurse to give him 500cc of saline over the 1st 1/2hour of dialysis to support his blood pressure. He also has some albumin ordered in case he needs more for his blood pressure. (2) Sepsis: Code(s): A41.9 - Sepsis, unspecified organism Status: Acute Assessment and Plan: The patient has sepsis syndrome. He got some blood cultures done. These are negative so far. He is on aztreonam Levaquin and vancomycin per pharmacy protocol. Etiology is unclear. Possibly lungs, possibly catheter, ?Decubitus ulcer (3) Hypokalemia: Code(s): E87.6 - Hypokalemia Status: Inactive Assessment and Plan: his potassium is still low today. We will dialyze him on a 4K bath. (4) Pneumonia: Code(s): J18.9 - Pneumonia, unspecified organism Status: Acute Assessment and Plan: the patient has a small left pleural effusion with left basilar atelectasis or pneumonia on his chest x-ray. Possibly this is pneumonia. His lungs sound better today. (5) COPD (chronic obstructive pulmonary disease): Qualifiers: COPD type: unspecified COPD Qualified Code(s): J44.9 - Chronic obstructive pulmonary disease, unspecified Code(s): J44.9 - Chronic obstructive pulmonary disease, unspecified Status: Chronic Assessment and Plan: The patient does not smoke anymore (6) GERD (gastroesophageal reflux disease): Code(s): K21.9 - Gastro-esophageal reflux disease without esophagitis Status: Acute (7) Type 2 diabetes mellitus with hyperglycemia, without long-term current use of insulin: Code(s): E11.65 - Type 2 diabetes mellitus with hyperglycemia Status: Chronic Assessment and Plan: on Accu-Cheks and sliding-scale insulin per hospitalist. (8) Erythropoietin deficiency anemia: Code(s): D63.1 - Anemia in chronic kidney disease Status: Acute Assessment and Plan: Hemoglobin is above 11 so we do not need EPO today. After hydration this might come down. (9) LORI (renal osteodystrophy): Code(s): N25.0 - Renal osteodystrophy Status: Acute Assessment and Plan: Will check a phosphorus level in the morning (10) C. difficile colitis: Code(s): A04.72 - Enterocolitis due to Clostridium difficile, not specified as recurrent Status: Acute Assessment and Plan: His diarrhea is back. He is getting stool cultures now. He is on Dificid Subjective Date/time seen: 01/31/22 10:52 Interval history: Mr. austin lee is still feeling under the weather. He has developed diarrhea again. This had stopped in the last few weeks but started up again a couple of days ago. he does not remember much about yesterday. He does have some belly discomfort. The patient does not have a good appetite. He denies shortness of breath or chest pain Review of Systems Cardiovascular: Cardiovascular: Reports no additional cardiovascular complaints Respiratory: Respiratory: Reports no additional respiratory complaints Gastrointestinal: Gastrointestinal: Reports no additional gastrointestinal complaints Genitourinar
[2022-01-31 11:14] LABS: Lactic Acid 0.7 mmol/L (0.7-2.0)
[2022-01-31 11:45] LABS: Glucose Point of Care 174 mg/dl (65-105)
[2022-01-31] MEDS: DEXTROSE 5%/0.9% SOD CHL 1,000 ML 100 ML IV CONT (12:11)
[2022-01-31] MEDS: POTASSIUM CHLORIDE 20 MEQ TABLET 40 MEQ PO (12:11)
[2022-01-31] MEDS: HYDROcodone/acetaminophen (*CRX) 5-325 MG TABLET 1 TAB PO ×2 (12:17→21:38)
--- NOTE | 2022-01-31 15:13 | PM.IMPN ---
Progress Note: A&P Assessment and Plan (1) Colitis: Code(s): K52.9 - Noninfective gastroenteritis and colitis, unspecified Status: Acute Assessment and Plan: -the patient has had a history of C diff in the past. -the patient stated that he had 14 stools yesterday. Continue to monitor electrolyte imbalances and treat accordingly and replace as necessary. -check thyroid level. -patient's white count is noted to be 33.8. -I did send for stool cultures. -I did start the patient on p.o. vancomycin for colitis. Dash tool and blood cultures are pending. -the patient is hypotensive. May possibly be be sepsis or due to his -operations welder suggested that we stop all other antibiotics but continue with vancomycin orally and Flagyl and Dificid. 01/30/2022 interval history: patient was sent from dialysis, patient has been complaining of several loose BM stats today so far he had 14 BMs, patient has history C diff and Ct scan of abdomen showed severe colitis, upon arrival patient whits counts were 33 and today risen to 45. it seem patient is having fulminant C diff discuss with pharmacy ID, recommended to dc Dificid and continue high dose Vancomycin 500mg PO q6 and Flagyl IV, upon arrival chest x-ray concerning for pneumonia and patient is being treated Aztreonam, patient also has history of end-stage renal disease seen by Nephrology and scheduled for hemodialysis, continue to monitor and further recommendation to follow. (2) Pneumonia: Code(s): J18.9 - Pneumonia, unspecified organism Status: Acute Assessment and Plan: -patient was started on aztreonam, Levaquin, and vancomycin. Pharmacy to renal dose. I spoke with the operations welder who recommended that we stop all of these antibiotics. I had reviewed the chest x-ray and so to the operations welder. His chest x-ray was not very impressive for pneumonia. -blood cultures are pending. -patient has sepsis, he has leukocytosis, fever, tachycardia, and hypotension. -the patient has had a full L of IV fluids and he has had two 500 cc boluses. The usual sepsis boluses were not performed as the patient has end-stage renal disease and is on dialysis. (3) Anemia: Code(s): D64.9 - Anemia, unspecified Status: Chronic Assessment and Plan: -related to end-stage renal disease. Patient's H&H is 11.0 in 34.5. Macrocytic anemia (4) Hypotension due to hypovolemia: Code(s): I95.89 - Other hypotension; E86.1 - Hypovolemia Status: Acute Assessment and Plan: -could be related to sepsis patient was given some IV fluid boluses as mentioned above. -he was also was given albumin. -I spoke with the operations welder concerning the patient's condition and he suggested that we give more albumin or may also be to give him another 500 mL bolus. -continue with med a during -continue with midodrine (5) Acute hypokalemia: Code(s): E87.6 - Hypokalemia Status: Acute Assessment and Plan: -check magnesium level as well. -replaced as necessary. -this could be from the 14 loose stools at the patient had yesterday. (6) Dementia: Code(s): F03.90 - Unspecified dementia, unspecified severity, without behavioral disturbance, psychotic disturbance, mood disturbance, and anxiety Status: Acute Assessment and Plan: -continue with Aricept (7) COPD (chronic obstructive pulmonary disease): Qualifiers: COPD type: unspecified COPD Qualified Code(s): J44.9 - Chronic obstructive pulmonary disease, unspecified Code(s): J44.9 - Chronic obstructive pulmonary disease, unspecified Status: Chronic Assessment and Plan: -continue with home inhalers -dual nebs (8) Type 2 diabetes mellitus with hyperglycemia, without long-term current use of insulin: Code(s): E11.65 - Type 2 diabetes mellitus with hyperglycemia Status: Chronic Assessment and Plan: -Accu-Cheks AC and HS with sliding scale insulin. Check A1c
[2022-01-31] MEDS: SODIUM CHLORIDE 0.9% IV 250 ML 999 ML IV CONT (15:37)
[2022-01-31] MEDS: metroNIDAZOLE 500 MG/ISO 100ML 500 MG/100 ML BAG 100 MG IVPB (15:38)
[2022-01-31 16:20] LABS: Glucose Point of Care 227 mg/dl (65-105)
[2022-01-31] MEDS: SODIUM BICARBONATE TAB 650 MG TABLET 1300 MG PO (16:44)
[2022-01-31] MEDS: FAMOTIDINE 20 MG TABLET PO (16:44)
--- NOTE | 2022-01-31 18:01 | ECG_ITS ---
Measurements Intervals [place] Rate: 109 P: 57 VT: 221 QRS: -24 QRSD: 99 T: 97 QT: 367 QTc: 496 Interpretive Statements SINUS TACHYCARDIA WITH FIRST DEGREE AV BLOCK WITH FREQUENT SUPRAVENTRICULAR PREMATURE COMPLEXES LOW QRS VOLTAGE IN EXTREMITY LEADS [QRS DEFLECTION < 0.5 mV IN LIMB LEADS] INFERIOR MYOCARDIAL INFARCTION , PROBABLY OLD [40+ ms Q WAVE AND/OR ST/T ABNORMALITY IN II/aVF] COMPARED TO ECG 01/30/2022 07:31:02 LEAD II IS NOW PRESENT, NO OTHER SIGNIFICANT CHANGES Electronically Signed On 02-01-2022 13:05:13 CDT by Marie Solis M.D.
[2022-01-31 19:45] LABS: Troponin I 0.139 ng/mL (0.000-0.034)
[2022-02-01] VITALS (10 sets, daily range): BP systolic 88–113; BP diastolic 44–65; PULSE 78–103; RESP 12–30; TEMP 35.6–37.1; O2SAT 92–100
[2022-02-01] MEDS: metroNIDAZOLE 500 MG/ISO 100ML 500 MG/100 ML BAG 100 MG IVPB ×3 (00:22→14:04)
[2022-02-01] MEDS: ALBUTEROL SULFATE NEB 2.5 MG/3 ML INH 5 MG INHALATION ×2 (02:49→08:42)
[2022-02-01] MEDS: IPRATROPIUM BR 0.02% INH SOLN 0.5 MG/2.5 ML VIAL INHALATION ×2 (02:49→08:42)
[2022-02-01] MEDS: HYDROcodone/acetaminophen (*CRX) 5-325 MG TABLET 1 TAB PO (02:50)
[2022-02-01] MEDS: DEXTROSE 5%/0.9% SOD CHL 1,000 ML 100 ML IV CONT (02:51)
[2022-02-01] MEDS: VANCOMYCIN ORAL 500 MG/10 ML SYRUP PO ×2 (06:12→06:16)
[2022-02-01 06:41] LABS: Hematocrit 40.3 % (42.0-52.0); Hemoglobin 12.6 g/dL (14.0-18.0); Mean Corpuscular HGB Conc 31.3 g/dl (32-36); Mean Corpuscular Hemoglobin 31.9 pg (26-34); Platelet Count Result 270 k/mm3 (150-375); Red Blood Count 3.95 M/mm3 (4.6-6.20); Red Cell Distribution Width 15.9 % (11.5-14.5)
[2022-02-01 07:18] LABS: Anion Gap 18 mmol/L (8-16); Blood Urea Nitrogen 34 mg/dL (9-20); Calcium 7.5 mg/dL (8.4-10.2); Carbon Dioxide 19 mmol/L (22-30); Chloride 98 mmol/L (98-107); Estimated CRCL calculation 13 ml/min; Estimated Glomerular Filt Rate 14; Glucose 270 mg/dL (65-110); Magnesium 2.3 mg/dL (1.6-2.3); Potassium 3.8 mmol/L (3.4-5.0); Sodium 135 mmol/L (137-145)
[2022-02-01 07:47] LABS: White Blood Count 78.2 K/mm3 (4.5-10.0)
[2022-02-01 08:08] LABS: Glucose Point of Care 263 mg/dl (65-105)
[2022-02-01] MEDS: FERROUS SULFATE 324 MG TABLET PO (08:11)
[2022-02-01] MEDS: SODIUM BICARBONATE TAB 650 MG TABLET 1300 MG PO (08:11)
[2022-02-01] MEDS: VITAMIN B CMPLX/VIT C/FOLIC AC 1 CAPSULE 1 CAP PO (08:11)
[2022-02-01] MEDS: ACIDOPHILUS/BULGARICUS CHEWABLE TABLET 1 TABLET PO (08:11)
[2022-02-01 08:40] LABS: Troponin I 0.126 ng/mL (0.000-0.034)
[2022-02-01] MEDS: FLUTICASONE/UMECLIDIN/VILANTER 100-62.5-25 MCG ELLIPTA 1 PUFF INHALATION (08:42)
--- NOTE | 2022-02-01 08:57 | PM.CNCAR ---
Assessment and Plan Assessment and plan (1) Sepsis: Code(s): A41.9 - Sepsis, unspecified organism Status: Acute Assessment and Plan: Patient has severe sepsis with worsening WBC this morning. Appears to be from fulminant C. diff. He has a very tender abdomen which is concerning. Management as per hospitalist. (2) Elevated troponin: Code(s): R77.8 - Other specified abnormalities of plasma proteins Status: Acute Assessment and Plan: Mildly elevated troponins and have remained flat. ECG without ischemic changes. Recent TTE in 10/2021 that was normal. Patient denies chest pain. Does not appear to be a picture of ACS. His elevated troponins are most likely due to his severe sepsis and in the setting of ESRD. History of Present Illness History of Present Illness Consult date/time: 02/01/22 08:57 Requesting physician: Leticia Dawson MD Consult reason: Other (Elevated troponin) Reason For Visit: pneumonia,hypokalemia,dialysis patient,sepsis Narrative: This is a consultation for elevated troponins. This is a 81-year-old male with a history of ESRD on HD who is admitted with severe sepsis. Patient has been having 14 loose stools. Found with fulminant C. diff. His WBC was initially 33, but has increased to 78. His initial troponin was 0.139 with repeat at 0.126. ECGs are without ischemic changes. Patient had a recent TTE this past October which was otherwise normal. Upon my examination, patient denies chest pain. States he has not had any chest pain. Points to his belly and states all his pain is in his abdomen. Has some shortness of breath, is on supplemental oxygen. His abdomen is quite tender upon touch. Review of Systems Review of Systems: 12 point ROS obtained. Negative, unless stated in HPI. [facility] Past Medical History Medical History Acute hypoxemic respiratory failure Ivzte-uw-gkukgwr kidney injury ROEL (acute kidney injury) Anemia COPD (chronic obstructive pulmonary disease) Coronary artery disease COVID-19 Dementia Diabetes type 2, controlled Diabetic peripheral neuropathy Dysphagia With history absent gag reflex with failed modified barium swallow October 2018. Patient refused G-tube at the time. Elevated troponin Erythropoietin deficiency anemia GERD (gastroesophageal reflux disease) Healthcare-associated pneumonia Hematoma of neck History of Clostridioides difficile colitis History of left heart catheterization Hyperkalemia Hyperlipidemia Hypertension Hypokalemia Hypokalemia Hyponatremia 132-136 Normal echocardiogram October 2018 and October 2021 Orthostatic hypotension Renal insufficiency Respiratory failure requiring intubation Due to COVID pneumonia renal failure and C diff colitis extubated 10/11/2021 Right leg DVT LORI (renal osteodystrophy) Stage 3b chronic kidney disease Secondary to diabetes, hypertension, vascular disease and age Weakness Surgical History Surgical History H/O inguinal hernia repair Hx of CABG 3 vessel, 2000 S/P dialysis catheter insertion (10/09/21) Family History Family History Mother Breast cancer COPD (chronic obstructive pulmonary disease) Hypertension Sibling Malignant neoplasm of prostate COPD (chronic obstructive pulmonary disease) Sister Hypertension Acute myocardial infarction Brother Lung cancer Sister Social History Social History Social History: He smoked up to 1 pack of cigarettes per day from the time he was 13 until is CABG in 2002. He is down to smoking a few cigarettes cigarettes a week. He has live with the same woman for approximately 30 years but states that he is not . He has 2 daughters 1 of which he is estranged from. The patient denies any alcohol marijuana or illicit drugs
--- NOTE | 2022-02-01 09:08 | PM.PNNEP ---
Progress Note: A&P Assessment and Plan (1) Renal insufficiency: Code(s): N28.9 - Disorder of kidney and ureter, unspecified Status: Acute Assessment and Plan: the patient has renal failure. He is in transition from acute kidney injury to end-stage renal disease, I am not sure where he is on paper. He has been on dialysis since he had the COVID a few months ago. he had dialysis yesterday. He was uncomfortable during the treatment and so he cut the treatment short. He is more short of breath today. This could be due to the abdominal distension. He has been getting IV fluids for his low blood pressure. Will stop the IV fluids and get a chest x-ray. will get a blood gas. It is difficult to know what is going on in his lungs right now because of the severity of his belly issues. (2) Sepsis: Code(s): A41.9 - Sepsis, unspecified organism Status: Acute Assessment and Plan: The patient has sepsis syndrome. Blood cultures and pleural fluid are all negative so far. Stool [place] [address]. It seems that his belly is the main culprit. It is more distended now and more tender. I talked with Dr. Zhou; he is going to get surgery involved and get a KUB. (3) Hypokalemia: Code(s): E87.6 - Hypokalemia Status: Inactive Assessment and Plan: Resolved (4) Pneumonia: Code(s): J18.9 - Pneumonia, unspecified organism Status: Acute Assessment and Plan: the chest x-ray does not show much. He is off those antibiotics. (5) COPD (chronic obstructive pulmonary disease): Qualifiers: COPD type: unspecified COPD Qualified Code(s): J44.9 - Chronic obstructive pulmonary disease, unspecified Code(s): J44.9 - Chronic obstructive pulmonary disease, unspecified Status: Chronic Assessment and Plan: The patient does not smoke anymore (6) GERD (gastroesophageal reflux disease): Code(s): K21.9 - Gastro-esophageal reflux disease without esophagitis Status: Acute (7) Type 2 diabetes mellitus with hyperglycemia, without long-term current use of insulin: Code(s): E11.65 - Type 2 diabetes mellitus with hyperglycemia Status: Chronic Assessment and Plan: on Accu-Cheks and sliding-scale insulin per hospitalist. (8) Erythropoietin deficiency anemia: Code(s): D63.1 - Anemia in chronic kidney disease Status: Acute Assessment and Plan: Hemoglobin is above 11 so we do not need EPO today. After hydration this might come down. (9) LORI (renal osteodystrophy): Code(s): N25.0 - Renal osteodystrophy Status: Acute Assessment and Plan: Will check a phosphorus level in the morning (10) C. difficile colitis: Code(s): A04.72 - Enterocolitis due to Clostridium difficile, not specified as recurrent Status: Acute Assessment and Plan: The belly seems to be more distended and more tender. Surgery is going to see the patient. Subjective Date/time seen: 02/01/22 09:08 Interval history: Mr. austin lee is still feeling weak. He is also short of breath today. Yesterday's chest x-ray just showed an infiltrate. His blood pressure has been low and is now better. He has been getting some IV fluids. Will check a stat chest x-ray in case there something else in his chest. He is not passing any gas and not having any stools he says. His belly is more painful. Exam Narrative: WDWN in NAD skin no rash head ncat lungs clear cor reg no rub abd BS+ Distended, and diffusely more tender and more firm ext no edema. Objective Data Vital Signs Vital Signs: Vital Signs - 24 hr 01/31/22 09:22 01/31/22 09:22 01/31/22 09:38 Temperature Pulse Rate 92 97 Respiratory Rate 20 20 Blood Pressure Pulse Oximetry 94 Oxygen Delivery Room Air 01/31/22 09:54 01/31/22 10:04 01/31/22 1
[2022-02-01 09:22] LABS: Troponin I 0.117 ng/mL (0.000-0.034)
[2022-02-01 10:08] LABS: Alveolar/Arterial O2 Gradient 83.7 mmHg; Base Excess ABG -9.7 mEq/l (+/-2.0); Fractional Inspired Oxygen 28 %; HCO3 ABG 15.7 mEq/l (22.0-26.0); Oxygen Content ABG 18.4 %vol (16.0-22.0); Oxyhemoglobin 92.8 % THb (90.0-100.0); PCO2 ABG 33.5 mmHg (35.0-45.0); PO2 ABG 76.4 mmHg (80.0-100.0); PO2 FiO2 Ratio Arterial Blood 2.73 %; Total Hemoglobin 14.1 g/dL (12.0-18.0)
[2022-02-01 10:11] LABS: Device NASAL CANNULA; Site Drawn RIGHT BRACHIAL
[2022-02-01] MEDS: SODIUM BICARBONATE 8.4% 50 MEQ/50 ML SYRINGE 100 MEQ IV PUSH (11:07)
--- NOTE | 2022-02-01 11:42 | WPDCNINT ---
Assessment and Plan Assessment and plan (1) C. difficile colitis: Code(s): A04.72 - Enterocolitis due to Clostridium difficile, not specified as recurrent Status: Acute Assessment and Plan: Patient has had recurrent or persistent diff colitis since October of this year he has been on and off treatment and despite that he presented again with diarrhea abdominal pain and CT scan consistent of findings of colitis. Despite treatment his WBC continues to increase and abdominal pain has not improved. He CT scan shows persistent changes of colitis. Patient has been on p.o. vancomycin IV Flagyl and p.o. Dificid General surgery has evaluated the patient and recommend colectomy. General surgeon has spoken to patient and patient's girlfriend. And recommended colectomy. Patient's girlfriend is on her way and wants to see him and discussed with him before making any decision. I also spoke to patient and explained him the situation that this medical treatment has failed and he needs colectomy. Although risk with surgery is high, without surgical option this will probably not get better and he may not survive. He states that he understands the situation and would like to discuss with his girlfriend before making any decision. Meanwhile patient is on p.o. vancomycin IV Flagyl and p.o. Dificid He is not IV fluids due to volume overload He has FMS for stool collection (2) Sepsis: Code(s): A41.9 - Sepsis, unspecified organism Status: Acute Assessment and Plan: Secondary to C diff colitis. Treatment as above Currently he is hemodynamically stable and his map is above 65 but anticipate that he may deteriorate further especially if he goes for laparotomy. I will transfer patient to ICU post surgery or in case he refuses surgery He may need vasopressors I will order some albumin as patient is third-spacing (3) COPD (chronic obstructive pulmonary disease): Qualifiers: COPD type: unspecified COPD Qualified Code(s): J44.9 - Chronic obstructive pulmonary disease, unspecified Code(s): J44.9 - Chronic obstructive pulmonary disease, unspecified Status: Chronic Assessment and Plan: Not in exacerbation Bronchodilators (4) Diabetes type 2, controlled: Code(s): E11.9 - Type 2 diabetes mellitus without complications Status: Acute Assessment and Plan: NPO Sliding scale insulin (5) Pulmonary edema: Code(s): J81.1 - Chronic pulmonary edema Status: Acute Assessment and Plan: Chest x-ray shows pulmonary edema. Likely secondary to volume overload from end-stage renal disease IV fluids have been discontinued He is on 2 L of nasal cannula Monitor (6) End stage renal disease on dialysis: Code(s): N18.6 - End stage renal disease; Z99.2 - Dependence on renal dialysis Status: Acute Assessment and Plan: Nephrology is following His last dialysis was on 01/31 Electrolytes reviewed On p.o. bicarb for metabolic acidosis Will repeat ABG post op Plan DVT prophylaxis -subcu heparin Stress ulcer prophylaxis -patient is already on Pepcid Nutrition -NPO Code Status -patient wishes to be Full Code Total Critical Care Time - 40 minutes Due to a high probability of clinically significant, life threatening deterioration, the patient required my highest level of preparedness to intervene emergently and I personally spent this critical care time directly and personally managing the patient. This critical care time included obtaining a history; examining the patient; pulse oximetry; ordering and review of studies; arranging urgent treatment with development of a management plan; evaluation of patient's response to treatment; frequent reassessment; and discussions with other providers. It was exclusive of separately billable procedures and treating other patients and teaching time. Please see Assessment and Plan section and the rest of the note for further informat
[2022-02-01 11:58] LABS: Glucose Point of Care 253 mg/dl (65-105)
--- NOTE | 2022-02-01 12:51 | WPDHPUPDATE1 ---
History and Physical Update Update Date/Time: 02/01/22 12:51 History and Physical has been reviewed, including an updated exam of the patient. There are NO changes in the patient's condition. Risks, benefits, and alternatives have been discussed and questions answered. Patient agrees to proceed with procedure.
--- NOTE | 2022-02-01 12:53 | PM.CNGS ---
Assessment and Plan Assessment and plan (1) Colitis: Code(s): K52.9 - Noninfective gastroenteritis and colitis, unspecified Status: Acute Assessment and Plan: I have reviewed the CTs and discussed the findings with the patient and his family. His girlfriend and daughter are in the room at bedside. He has evidence of severe colitis which is leading to severe sepsis. He has not responded to medical treatment so far. Surgery is going to be high risk because he likely have a high chance of mortality with surgery. He will most likely remain on a ventilator and the placed in the ICU postoperatively. Without surgery he could continue to worsen as well and has high chance mortality with just medical treatment. The patient and family would like to proceed with surgery. I discussed that the only potential curative treatment is a subtotal colectomy with end ileostomy. Patient is agreeable to proceeding. I have discussed his case with the hospitalist as well as trommel tender. Plan for emergent exploratory laparotomy with subtotal colectomy and end ileostomy. (2) End stage renal disease on dialysis: Code(s): N18.6 - End stage renal disease; Z99.2 - Dependence on renal dialysis Status: Acute (3) Sepsis: Code(s): A41.9 - Sepsis, unspecified organism Status: Acute (4) C. difficile colitis: Code(s): A04.72 - Enterocolitis due to Clostridium difficile, not specified as recurrent Status: Acute History of Present Illness Consult details Consult date: 02/01/22 Reason for consult: other (C diff colitis) Requesting physician: Leticia Dawson MD Narrative: This is a 81-year-old man who I am asked to see for worsening colitis. He was found to have brandt colitis on a CT scan several days ago. He has had worsening abdominal pain despite treatment with vancomycin and Flagyl. His white blood count has continued to rise and he is now showing signs of hypotension and peritonitis. A repeat CT was done today which showed evidence of ascites and worsening pancolitis. His white blood count is now up to the 78,000. He is complaining of constant abdominal pain. When I 1st discussed this with the patient around 10:00 a.m., he was unsure what he wanted to do. Family has now come to see him and are at bedside. He is now saying just go ahead and take it out when I discussed with him about his colon be infected and possibly becoming ischemic. Review of Systems Review of Systems: ROS unobtainable: Yes unobtainable due to medical condition and unobtainable due to mental status PMFSH Past Medical History Medical History Acute hypoxemic respiratory failure Aujau-gg-coksaue kidney injury ROEL (acute kidney injury) Anemia COPD (chronic obstructive pulmonary disease) Coronary artery disease COVID-19 Dementia Diabetes type 2, controlled Diabetic peripheral neuropathy Dysphagia With history absent gag reflex with failed modified barium swallow October 2018. Patient refused G-tube at the time. Elevated troponin Erythropoietin deficiency anemia GERD (gastroesophageal reflux disease) Healthcare-associated pneumonia Hematoma of neck History of Clostridioides difficile colitis History of left heart catheterization Hyperkalemia Hyperlipidemia Hypertension Hypokalemia Hypokalemia Hyponatremia 132-136 Normal echocardiogram October 2018 and October 2021 Orthostatic hypotension Renal insufficiency Respiratory failure requiring intubation Due to COVID pneumonia renal failure and C diff colitis extubated 10/11/2021 Right leg DVT LORI (renal osteodystrophy) Stage 3b chronic kidney disease Secondary to diabetes, hypertension, vascular disease and age Weakness Surgical History Surgical History H/O inguinal hernia repair Hx of CABG 3 vessel, 2000 S/P dialysis catheter insertion (10/09/21) Family History Fa
--- NOTE | 2022-02-01 12:55 | PM.IMPN ---
Progress Note: A&P Assessment and Plan (1) Colitis: Code(s): K52.9 - Noninfective gastroenteritis and colitis, unspecified Status: Acute Assessment and Plan: -the patient has had a history of C diff in the past. -the patient stated that he had 14 stools yesterday. Continue to monitor electrolyte imbalances and treat accordingly and replace as necessary. -check thyroid level. -patient's white count is noted to be 33.8. -I did send for stool cultures. -I did start the patient on p.o. vancomycin for colitis. Dash tool and blood cultures are pending. -the patient is hypotensive. May possibly be be sepsis or due to his -parasitology teacher suggested that we stop all other antibiotics but continue with vancomycin orally and Flagyl and Dificid. 02/01/2022 interval history: patient was sent from dialysis, patient had been complaining of several loose BM stated on 01/31 he had 14 BMs, patient has history C diff and Ct scan of abdomen showed severe colitis, upon arrival patient whits counts were 33, 45 and today 78. and complaints of CP and abdominal pain, seeen by financial planner though his tropes are elevated most likely he has GI issue, called Dr. Drake and ordered Ct of abdomen which showed worsening pancolitis, surgery will take the patient to OR for evaluation and treatment, it seem patient is having fulminant C diff discuss with pharmacy ID, recommended to dc Dificid and continue high dose Vancomycin 500mg PO q6 and Flagyl IV, however today patient symptoms worsening, will add Dificid, upon arrival chest x-ray concerning for pneumonia and patient is being treated Aztreonam, patient also has history of end-stage renal disease seen by Nephrology and scheduled for hemodialysis, continue to monitor and further recommendation to follow. (2) Pneumonia: Code(s): J18.9 - Pneumonia, unspecified organism Status: Acute Assessment and Plan: -patient was started on aztreonam, Levaquin, and vancomycin. Pharmacy to renal dose. I spoke with the parasitology teacher who recommended that we stop all of these antibiotics. I had reviewed the chest x-ray and so to the parasitology teacher. His chest x-ray was not very impressive for pneumonia. -blood cultures are pending. -patient has sepsis, he has leukocytosis, fever, tachycardia, and hypotension. -the patient has had a full L of IV fluids and he has had two 500 cc boluses. The usual sepsis boluses were not performed as the patient has end-stage renal disease and is on dialysis. (3) Anemia: Code(s): D64.9 - Anemia, unspecified Status: Chronic Assessment and Plan: -related to end-stage renal disease. Patient's H&H is 11.0 in 34.5. Macrocytic anemia (4) Hypotension due to hypovolemia: Code(s): I95.89 - Other hypotension; E86.1 - Hypovolemia Status: Acute Assessment and Plan: -could be related to sepsis patient was given some IV fluid boluses as mentioned above. -he was also was given albumin. -I spoke with the parasitology teacher concerning the patient's condition and he suggested that we give more albumin or may also be to give him another 500 mL bolus. -continue with med a during -continue with midodrine (5) Acute hypokalemia: Code(s): E87.6 - Hypokalemia Status: Acute Assessment and Plan: -check magnesium level as well. -replaced as necessary. -this could be from the 14 loose stools at the patient had yesterday. (6) Dementia: Code(s): F03.90 - Unspecified dementia, unspecified severity, without behavioral disturbance, psychotic disturbance, mood disturbance, and anxiety Status: Acute Assessment and Plan: -continue with Aricept (7) COPD (chronic obstructive pulmonary disease): Qualifiers: COPD type: unspecified COPD Qualified Code(s): J44.9 - Chronic obstructive pulmonary disease, unspecified Code(s): J44.9 - Chronic obstructive pulmonary disease, unspecified Status: Chronic Assessment a
[2022-02-01] MEDS: ALBUMIN HUMAN 25% 25 GM/100 ML 100 ML IVPB (13:11)
--- NOTE | 2022-02-01 13:21 | WPDANESEPPF ---
Anes - Initial Pre Proc Eval Procedure: Operation Date: 02/01/22 13:30 Proposed Procedures p Exploratory Laparotomy, Pos Bowel Resec - Betito Drake DO Date/Time: 02/01/22 13:21 Surgeon: Leticia Dawson MD Pre Op Diagnosis: pneumonia,hypokalemia,dialysis patient,sepsis Patient Data Age: 81 Gender: M Height: 1.73 m Weight: 71.8 kg Last Vital Signs Temp 35.6 C L 02/01/22 12:00 Pulse 103 H 02/01/22 12:00 Resp 18 02/01/22 12:00 BP 96/65 L 02/01/22 12:00 Pulse Ox 98 02/01/22 12:00 O2 Del Method Nasal Cannula 02/01/22 08:40 O2 Flow Rate 2 02/01/22 08:40 Allergies Allergy/AdvReac Type Severity Reaction Status Date / Time morphine Allergy Intermediate Itching Verified 01/30/22 10:40 Penicillins Allergy Mild Unknown Verified 01/30/22 10:40 Home Medications Medication Instructions Recorded Confirmed Type donepezil 10 mg tablet 10 mg PO DAILY 10/11/19 01/30/22 History ezetimibe 10 mg tablet 5 mg PO DAILY 10/11/19 01/30/22 History famotidine 20 mg tablet 40 mg PO BID 10/11/19 01/30/22 History gabapentin 300 mg capsule 300 mg PO BID 10/11/19 01/30/22 History pioglitazone 30 mg tablet 30 mg PO DAILY 10/11/19 01/30/22 History aspirin 81 mg tablet 81 mg PO HS 07/28/21 01/30/22 History budesonide 160 mcg-glycopyr 9 2 inh inhalation BID 07/28/21 01/30/22 History mcg-formot 4.8 mcg/actuation HFA inhaler (Breztri Aerosphere) ferrous sulfate 325 mg (65 mg 1 tablet PO DAILY 09/15/21 01/30/22 History iron) tablet Lactobacillus acidophilus 10 mg PO BID 12/07/21 01/30/22 History atorvastatin 40 mg tablet 40 mg PO HS 12/07/21 01/30/22 History collagen (bovine) 12 bandage 1 applic topical DAILY 12/07/21 01/30/22 History vitamin B complex-vitamin C-folic 1 tablet PO DAILY 12/07/21 01/30/22 History acid 0.8 mg tablet ([place]yenne-Beatriz) bisacodyl 10 mg rectal suppository 10 mg RECTAL DAILY PRN Constipation 01/10/22 01/30/22 History linagliptin 5 mg tablet 5 mg PO QAM 01/10/22 01/30/22 History magnesium citrate 296 ml PO DAILY PRN Constipation 01/10/22 01/30/22 History magnesium hydroxide 400 mg/5 mL 400 mg PO DAILY PRN Constipation 01/10/22 01/30/22 History oral suspension (Milk of Magnesia) albuterol sulfate 2.5 mg/3 mL 2.5 mg (3 mL) inhalation Q4H PRN 01/14/22 01/30/22 Rx (0.083 %) solution for nebulization sob #90 mL furosemide 20 mg tablet 20 mg PO DAILY #7 tabs 01/14/22 01/30/22 Rx midodrine 10 mg tablet 10 mg PO MoWeFr #7 tabs 01/14/22 01/30/22 Rx oxycodone 5 mg tablet 5 mg PO Q8H PRN Pain #7 tabs 01/14/22 01/30/22 Rx acetaminophen 325 mg tablet 650 mg PO Q6H PRN pain in soft 01/30/22 01/30/22 History tissues of limb carvedilol 12.5 mg tablet 12.5 mg PO DAILY 01/30/22 01/30/22 History carvedilol 12.5 mg tablet 12.5 mg PO QTUTHSASU 01/30/22 01/30/22 History diphenhydramine HCl 25 mg tablet 25 mg PO TID PRN Itching 01/30/22 01/30/22 History Laboratory Tests 01/31/22 01/31/22 02/01/22 16:08 18:41 05:42 WBC RBC Hgb Hct MCV MCH MCHC RDW Plt Count MPV Puncture Site ABG pH ABG pCO2 ABG pO2 ABG PO2/FiO2 Ratio ABG HCO3 ABG O2 Saturation ABG O2 Content ABG Base Excess A-a Gradient Oxyhemoglobin Total Hemoglobin O2 Delivery Device O2 Liters/Min FiO2 Sodium Potassium Chloride Carbon Dioxide Anion Gap BUN Creatinine Estim Creat Clear Calc Estimated GFR Glucose POC Capillary Glucose 227 mg/dl H mg/dl (65-105) Calcium Phosphorus Magnesium Troponin I 0.139 ng/mL H* ng/mL 0.126 ng/mL H* ng/mL (0.000-0.034)
--- NOTE | 2022-02-01 15:34 | PC.NURSE ---
Transported patient to surgery 02/01/22 @ [id number] and gave report.
--- NOTE | 2022-02-01 15:36 | PC.NURSE ---
Gave report to ICU nurse @ 3000
--- NOTE | 2022-02-01 15:56 | W.PM.PROC2 ---
Procedure Note - Detailed Date of Procedure 02/01/22 Pre-op Diagnosis Pancolitis, severe sepsis Post-op Diagnosis Same Procedure Performed Exploratory laparotomy with subtotal colectomy and end ileostomy Surgeon Betito Drake, DO Anesthesia General Indications this is a 81-year-old man who presented with abdominal pain and findings of pancolitis. He presented to the emergency department 01/30/2022 with fever, cough, and hypotension. He was also experiencing abdominal pain with significant diarrhea. A CT in the emergency department on 01/30 showed evidence of brandt colitis and this was suspected to be due to C diff colitis. He was admitted to hospital and treated initially with fidaxomicin, vancomycin, and Flagyl. He was not showing any sign of improvement over 2 days of being in the hospital. His abdomen was more distended and his white blood count was continuing to rise. A repeat CT was performed this morning which showed evidence of worsening colitis and developing ascites. Discussions were made with the patient and family about his risks of continued medical treatment versus surgical intervention. Decision was made to proceed with exploratory laparotomy with subtotal colectomy with end ileostomy. Findings Exploratory laparotomy was performed. The entire colon appeared somewhat dusky and thickened. The small bowel appeared slightly dilated but viable. There was over 2 L of clear yellow appearing ascites within the abdominal cavity. There did appear to be a dilated Meckel's diverticulum about 20 in proximal to the ileocecal valve. 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 The distal end of the small bowel was also resected to include the Meckel's diverticulum. The patient remained hypotensive throughout much of the procedure. He was transferred to the ICU intubated and in critical condition. Description of Procedure procedure as well as risks, benefits, and alternatives were discussed with the patient and family. Written consent was obtained and placed in chart prior to procedure. Patient was brought back to surgical suite. He was placed in supine position on the operating table. Time-out was then confirm patient and procedure. He was intubated by the anesthesia department. His abdomen was prepped and draped in sterile fashion using chlorhexidine prep 30 cm vertical midline incision was made using a 10 blade scalpel. Electrocautery was used for hemostasis and for dissection down through the linea alba. Peritoneum was then entered using electrocautery. Kraig protector was then inserted. The abdominal cavity was carefully inspected. The lateral peritoneal attachments to the ascending colon were carefully taken down using electrocautery. This was then extended up to the hepatic flexure and hepatic flexure was taken down using LigaSure bipolar electrocautery. The omentum was then carefully freed up from the transverse colon using electrocautery and the mesocolon was mobilized along the transverse colon to allow for resection. The splenic flexure was then taken down using electrocautery and LigaSure bipolar cautery. I then continued to take down the lateral peritoneal attachments to the descending colon and sigmoid colon. A DEBBIE 75 mm blue load stapler was then advanced across the terminal ileum and clamped and fired. LigaSure bipolar cautery was then used to take down the colon attachments to the mesocolon about 1-2 cm away from the wall of the colon. This was continued along the entire length of the colon all the way down to the upper rectum. A DEBBIE 75 mm blue load stapler was then clamped across the upper rectum and clamped and fired. This freed up the colon completely it was then removed and sent to the lab for pathology. There did appear to be a large Meckel's diverticulum just proximal to the staple line on the ileum, therefore decision was made to resect this portion of the distal ileum as well. A DEBBIE [address]
[2022-02-01 16:59] LABS: Base Excess ABG -19.8 mEq/l (+/-2.0); Device VENTILATOR; Fractional Inspired Oxygen 100 %; HCO3 ABG 9.1 mEq/l (22.0-26.0); Oxygen Content ABG 15.1 %vol (16.0-22.0); Oxygen Saturation ABG 99.2 % (95.0-100.0); Oxyhemoglobin 97.7 % THb (90.0-100.0); PCO2 ABG 32.3 mmHg (35.0-45.0); PO2 ABG 235.7 mmHg (80.0-100.0); PO2 FiO2 Ratio Arterial Blood 2.36 %; Site Drawn ARTLINE; Total Hemoglobin 10.6 g/dL (12.0-18.0)
[2022-02-01 17:00] LABS: Arterial Blood Gas PEEP 5 cmH2O; Arterial Blood Gas Tidal Volume 450 ml; Arterial Blood Gas Vent Mode CMV; Arterial Blood Gas Ventilator rate 20 /MIN
--- NOTE | 2022-02-01 18:35 | PM.DDS ---
Discharge Summary Date and Time Date of : 02/01/22 Time of : 16:30 Provider Pronounced By: MAYRA Steve RN Probable Cause of Probable Cause of : Cardiac arrest Summary Hospital Course: patient was sent from dialysis, patient had been complaining of several loose BM stated on 01/31? he had 14 BMs, patient has history C diff and Ct scan of abdomen showed severe colitis, upon arrival patient whits counts were 33,? 45 and today 78. and complaints of CP and abdominal pain, seeen by kettle firer though his tropes are elevated most likely he has GI issue, called Dr. Drake and? ordered Ct of abdomen which showed worsening pancolitis, surgery will take the patient to OR for evaluation and treatment,? ? it seem patient is having fulminant C diff discuss with pharmacy ID, recommended to dc Dificid and continue high dose Vancomycin 500mg PO q6 and Flagyl IV, however today patient symptoms worsening, will add Dificid, upon arrival chest x-ray concerning for pneumonia and patient is being treated Aztreonam,? patient also has history of end-stage? renal disease seen by Nephrology and scheduled for hemodialysis, continue to monitor and further recommendation to follow. patient abdominal symptosm were worsenign and CT scan of abdomen was concerning for worsening pancolitis, most likely infectious. Consider C. Difficile infection. was seen by general surgeon and recommended surgical evaluation which patient tolerated and was transferred to ICU for close observation, there patient went into cardiac arrest, CPR and ACLS protocol was carried out for close to 22 min, patient family was present, after discussing with his family ACLS was stopped, and patient at 16:30 on 02/01/2022. Additional Data Confirmation of as documented by pronouncing clinician: Pupillary Reflex, Palpable Pulses, Response to Stimuli, Heart Tones and Breath Sounds Name of Provider Notified: Eunice Time Provider Notified: 16:30 Provider Requests Autopsy: No Family Requests Autopsy: No Engineering Mechanic Notified: Yes Date [facility] Notified of : 02/01/22 Time [facility] Notified of : 17:22
== END 2022-02-01 16:30 | disposition expired | DRG 853 ==
LOC: ANHED 08:59 → ANH3MEDSUR 09:41 → ANHICU 02-01 15:48
PROVIDERS: Internal Medicine; Internal Medicine Nephrology; Nurse Practitioner; Surgery; Admitting Provider Family Medicine; Emergency Provider Emergency Medicine; PCP Family Medicine; Visit Provider Family Medicine
PROC: 0DTE0ZZ Resection of Large Intestine, Open Approach (ICD-10-PCS; CPT 49000; principal; 2022-02-01 13:30)
DX: A41.9 Sepsis, unspecified organism (principal); N18.6 End stage renal disease; R65.21 Severe sepsis with septic shock; I12.0 Hypertensive chronic kidney disease with stage 5 chronic kidney disease or end stage renal disease; A04.72 Enterocolitis due to Clostridium difficile, not specified as recurrent; E87.20 Acidosis, unspecified; J81.1 Chronic pulmonary edema; R18.8 Other ascites; E87.6 Hypokalemia; E11.22 Type 2 diabetes mellitus with diabetic chronic kidney disease; K21.9 Gastro-esophageal reflux disease without esophagitis; J44.9 Chronic obstructive pulmonary disease, unspecified; E11.65 Type 2 diabetes mellitus with hyperglycemia; R57.1 Hypovolemic shock; N25.0 Renal osteodystrophy; D63.1 Anemia in chronic kidney disease; F03.90 Unspecified dementia, unspecified severity, without behavioral disturbance, psychotic disturbance, mood disturbance, and anxiety; Q43.0 Meckel's diverticulum (displaced) (hypertrophic); I25.10 Atherosclerotic heart disease of native coronary artery without angina pectoris; E78.5 Hyperlipidemia, unspecified; E11.40 Type 2 diabetes mellitus with diabetic neuropathy, unspecified; R77.8 Other specified abnormalities of plasma proteins; R13.10 Dysphagia, unspecified; I95.9 Hypotension, unspecified; Z86.718 Personal history of other venous thrombosis and embolism; E86.0 Dehydration; Z20.822 Contact with and (suspected) exposure to COVID-19; F17.210 Nicotine dependence, cigarettes, uncomplicated; E86.1 Hypovolemia; Z86.16 Personal history of COVID-19; E87.70 Fluid overload, unspecified; Z79.84 Long term (current) use of oral hypoglycemic drugs; Z79.82 Long term (current) use of aspirin; Z99.2 Dependence on renal dialysis; Z95.1 Presence of aortocoronary bypass graft
CPT/HCPCS: 36415; 36600; 71045; 71250; 74018; 74176; 80048; 80053; 80069; 82274; 82805; 82948; 83036; 83605; 83735; 84443; 84484; 85025; 85027; 85610; 85730; 86140; 87040; 87045; 87177; 87209; 87269; 87272; 87427; 87493; 87502; 88307; 89055; 92950; 93005; 94640; 99285; A9270; C1751; G0257; J0131; J0171; J0330; J1170; J1644; J1815; J1956; J2250; J2370; J2704; J3010; J3370; J3475; J3480; J7030; J7040; J7042; J7050; P9047; U0003; U0005